=== PATIENT | male | born 1945 | race Caucasian/White ===

== ENCOUNTER 2016-08-23 20:28 | Inpatient (IN) | payer OTHER ==
[~2016-08-23] VITALS: Ht 190.5 cm; Wt 77.0 kg
[~2016-08-23 20:28] MED LIST: ACET-2047 GTB; ALBU2.5V3 NEB; AMIO200T2 GTB; ASCO500S2 GTB; BISA10SU58 PR; CHLO118L3 TOP; FERR220S2 G-TUBE; INSU100V23 SC; LACTINEX GTB; METO5TAB58 GTB; MULT-876 GTB; OMEP40CA6 GTB; POLY15DR42 BOTH EYES; RTATR NEB; SIME80TA6 GTB; TRAM-40 GTB
[2016-08-23] MEDS ORDERED: CEFEPIME 2GM/50 ML (PMX) 50 ML IVPB STA (20:34)
[2016-08-23] MEDS ORDERED: SOD CHLORIDE 0.9% 1,000 ML IV STA ×3 (20:44→21:49)
[2016-08-23] MEDS ORDERED: VANCOMYCIN 1 GM (PMX) 250 ML IVPB ONE (21:00)
[2016-08-23] MEDS ORDERED: ACID1CAP GTB (21:18)
[2016-08-23] MEDS ORDERED: ALBU2.5V3 NEB ×2 (21:19→21:22)
--- NOTE | 2016-08-23 21:21 | RADRPT ---
PROCEDURE: XR Chest. CLINICAL INDICATION: Patient experiencing possible Sepsis TECHNIQUE: Single AP portable chest COMPARISON: 07/27/2016 FINDINGS: The cardiomediastinal silhouette is within normal limits. Patchy right upper lobe airspace opacity invade left infrahilar air space opacity. Blunting left costophrenic angle suggesting pleural effus ion. Tracheostomy in place. Right PICC line catheter tip overlying the proximal superior vena cava. No pneumothorax. The osseous structures and soft tissues are unremarkable. IMPRESSION: Patchy bilateral air space disease and small left pleural effusion. Support devices in place as yo cribed above. RPTAT:AAJJ Physician Damaris Date Time Electronically viewed and signed by Physician Damaris on 08/23/2016 21:20 JAMAR/
[2016-08-23] MEDS ORDERED: AMIO200T2 GTB (21:23)
[2016-08-23] MEDS ORDERED: MINE3.5O31 BOTH EYES (21:24)
[2016-08-23] MEDS ORDERED: DEXT15DR2 BOTH EYES (21:27)
[2016-08-23] MEDS ORDERED: CHLO473M7 MM (21:32)
[2016-08-23] MEDS ORDERED: DOCU-159 GTB (21:32)
[2016-08-23] MEDS ORDERED: CHLO118L3 TOP (21:32)
[2016-08-23] MEDS ORDERED: DULR PR (21:33)
[2016-08-23 21:40] LABS: HEMATOCRIT 21.4 % (42.0-52.0); MEAN CORPUSCULAR HEMOGLOBIN 27.7 pg (29.0-33.0); MEAN CORPUSCULAR HGB CONC 32.1 g/dl (32.0-37.0); MEAN CORPUSCULAR VOLUME 86.3 fl (82.0-101.0); MEAN PLATELET VOLUME 12.9 fl (7.4-10.4); RED BLOOD COUNT 2.48 10^6/ul (4.70-6.10); RED CELL DISTRIBUTION WIDTH 19.4 % (11.5-14.5)
[2016-08-23] MEDS ORDERED: LANT3I SC (21:40)
[2016-08-23] MEDS ORDERED: MULT-105 GTB (21:41)
[2016-08-23] MEDS ORDERED: OMEP40CA6 GTB (21:41)
[2016-08-23] MEDS ORDERED: SIME80TA GTB (21:42)
[2016-08-23] MEDS ORDERED: TRAM-40 GTB (21:44)
[2016-08-23 21:47] LABS: ADD UMIC YES; URINE BILIRUBIN (Dip) NEGATIVE (NEGATIVE); URINE BLOOD (Dip) 2+ (NEGATIVE); URINE GLUCOSE (Dip) NEGATIVE (NEGATIVE); URINE KETONES (Dip) TRACE (NEGATIVE); URINE LEUKOCYTE ESTERASE (Dip) 3+ (NEGATIVE); URINE NITRITE (Dip) NEGATIVE (NEGATIVE); URINE TOTAL PROTEIN (Dip) 2+ (NEGATIVE); URINE UROBILINOGEN (Dip) 0.2 E.U./dL (0.1-1.0)
[2016-08-23] MEDS ORDERED: ACET325T33 GTB (21:47)
[2016-08-23] MEDS ORDERED: TYL500 GTB (21:47)
[2016-08-23] MEDS ORDERED: ASCO500S2 GTB (21:48)
[2016-08-23] MEDS ORDERED: CHOL100062 GTB (21:49)
[2016-08-23] MEDS ORDERED: NORepinephrine 8MG/250 ML (PMX 250 ML IV STA (21:49)
[2016-08-23 21:50] LABS: INR 1.41; PROTIME 17.3 Sec (12.2-14.2); PT RATIO 1.4
[2016-08-23] MEDS ORDERED: ZINC220T GTB (21:50)
[2016-08-23 21:51] LABS: PARTIAL THROMBOPLASTIN TIME 34.7 Sec (25.0-35.0)
[2016-08-23 21:52] LABS: ALBUMIN 2.7 g/dl (3.3-4.9); UNCORRECTED WBC 10.3 10^3/ul (4.8-10.8)
[2016-08-23] MEDS ORDERED: FERROUS SULFATE GTB (21:52)
[2016-08-23 21:54] LABS: CONDITION 1; HEMOGLOBIN 6.9 g/dl (14.0-18.0); LH ANALYZER COMMENTS 1; PLATELET COUNT 168 10^3/UL (140-440); SUSPECT 1
[2016-08-23 21:55] LABS: AADO2 Arterial 387.7 mmHg (7.0-24.0); Arterial Base Excess -4.5 mmol/L (-3.0-3); Arterial COHb 0.3 % (0.0-3.0); Arterial MetHb 0.5 % (0.0-1.5); Arterial Total Hemglobin 7.4 g/dl (12.0-18.0); Blood Gas Mean Airway Pressure 11; MODE VENT - AC
[2016-08-23 21:55] LABS: BILIRUBIN,INDIRECT 0.1 mg/dl (0-1.1); BILIRUBIN,TOTAL 0.1 mg/dl (0.2-1.3); CREATININE 3.23 mg/dl (0.61-1.24)
[2016-08-23 21:56] LABS: ALBUMIN/GLOBULIN RATIO 0.71; CALCIUM 8.5 mg/dl (8.4-10.2); TOTAL PROTEIN 6.5 g/dl (6.1-8.1)
[2016-08-23] MEDS ORDERED: ACETAMINOPHEN 650 MG SUPP PR ONE (22:00)
[2016-08-23] MEDS ORDERED: ALTEPLASE (CATHFLO) 2 MG INJ CATHETER ONE (22:00)
[2016-08-23] MEDS ORDERED: ALTEPLASE (CATHFLO) 2 MG INJ CATHETER PRN (22:00)
[2016-08-23 22:04] LABS: URINE COLOR YELLOW (YELLOW)
[2016-08-23 22:05] LABS: BACTERIA,URINE MANY; TRANSITIONAL EPI CELLS,URINE FEW
[2016-08-23] MEDS ORDERED: SOD CHLORIDE 0.9% 250 ML IV ONE (22:08)
[2016-08-23 22:28] LABS: TROPONIN-I 0.843 ng/ml (0.00-0.12)
[2016-08-23 22:29] LABS: EOSINOPHILS # 0.1 10^3/ul (0.0-0.5); LYMPHOCYTES # 1.7 10^3/ul (0.8-2.9); MONOCYTE # 0.9 10^3/ul (0.3-0.9); NEUTROPHIL # 6.2 10^3/ul (1.6-7.5)
[2016-08-23 22:30] LABS: MICROCYTOSIS 1+
--- NOTE | 2016-08-23 22:35 | ERA ---
ER Documentation Chief Complaint Date/Time DATE: 08/23/16 TIME: 22:26 Chief Complaint fever, dehydration, from [facility] HPI Patient is a 70-year-old male with chronic encephalopathy who presents with fever. Please note the history and physical exam is limited secondary to the patient's encephalopathy at baseline. The patient was transferred from [facility] for fever. I cannot obtain a history otherwise. The patient was brought in by ambulance. ROS All systems reviewed and are negative except as per history of present illness. Medications Home Meds Reported Medications [Ferrous Sulfate] No Conflict Check, 7.5 ML GTB BID 08/23/16 Zinc Sulfate* (Zinc Sulfate*) 220 Mg Tablet, 220 MG GTB DAILY, TAB 08/23/16 Cholecalciferol* (Vitamin D3*) 1,000 Unit Tablet, 1000 UNIT GTB DAILY, TAB 08/23/16 Ascorbic Acid* (Vitamin C* Liq) 500 Mg/5 Ml Syrup, 500 MG GTB DAILY, ML 08/23/16 Acetaminophen* (Tylenol*) 500 Mg Tab, 1000 MG GTB Q4H Y for PAIN 4-01/25, TAB 08/23/16 Acetaminophen* (Tylenol*) 325 Mg Tablet, 650 MG GTB Q4H Y for MILD PAIN LEVEL 1- 3, TAB FOR FEVER AND TRACH TUBE CHANGE 08/23/16 Tramadol Hcl* (Ultram*) 50 Mg Tablet, 50 MG GTB BID, TAB 08/23/16 Simethicone* (Anti-Gas/80*) 80 Mg Tab.chew, 80 MG GTB Q12 Y for DISTENSION/GAS/ BLOATING, TAB.CHEW 08/23/16 Omeprazole* (Omeprazole*) 40 Mg Capsule.dr, 40 MG GTB BID, #30 CAP 08/23/16 Multivitamin with Minerals (Multivitamins with Minerals) 1 Each Tablet, 1 EACH GTB DAILY, TAB 08/23/16 Insulin Glargine* (Lantus*) 100 Unit/Ml Soln, 15 UNIT SC DAILY, #1 VIAL 08/23/16 Bisacodyl* (Bisacodyl*) 10 Mg Supp, 10 MG IA Q24H Y for PRN, SUPP 08/23/16 Docusate Sodium* (Docusate Sodium*) 100 Mg Capsule, 100 MG GTB BID, #60 CAP 08/23/16 Chlorhexidine Gluconate (Paroex) 473 Ml Mouthwash, 473 ML MM Q12, BOTTLE 08/23/16 Dextran/Hypromellose/Glycerin (Artificial Tears Drops) 15 Ml Drops, 2 DROP BOTH EYES BID, EA 08/23/16 Amiodarone Hcl* (Amiodarone Hcl*) 200 Mg Tablet, 200 MG GTB DAILY, #30 TAB HOLD IF AP BELOW 60 08/23/16 Albuterol Sulfate* (Albuterol Sulfate* Neb) 0.083%-3 Ml Neb, 2.5 MG NEB Q6 Y for WHEEZING AND SOB, #30 VIAL TAKE WITH ATROVENT 0.5MG 08/23/16 Albuterol Sulfate* (Albuterol Sulfate* Neb) 0.083%-3 Ml Neb, 2.5 MG NEB Q3H Y for WHEEZING AND SOB, #30 VIAL 08/23/16 Acidophilus/Pectin, [place] (ACIDOPHILUS PROBIOTIC CAPSULE) 1 Each Capsule, 1 EACH GTB DAILY, CAP 08/23/16 Discontinued Reported Medications Chlorhexidine Gluconate* (Chlorhexidine Gluconate*) 118 Ml Liquid, 118 ML TOP, ML 08/23/16 Artificial Tears* (Akwa Oint*) 3.5 Gm Oint, 2 APPLIC BOTH EYES BID, #1 TUB 08/23/16 Multivit-Min/Iron Fum/Folic AC (Apmat-Kxkhvme-Rxypiigm Tablet) 1 Each Tablet, 1 EACH GTB DAILY, TAB 01/30/16 Ferrous Sulfate (Ferrous Sulfate) 220 Mg Solution, 330 MG G-TUBE BID 01/30/16 Omeprazole* (Omeprazole*) 40 Mg Capsule.dr, 40 MG GTB DAILY, #30 CAP 01/30/16 Bisacodyl* (Dulcolax*) 10 Mg/Supp.rect Supp.rect, 10 MG IA Q24H Y for CONSTIPATION, SUPP.RECT 01/30/16 Chlorhexidine Gluconate* (Chlorhexidine Gluconate*) 118 Ml Liquid, 15 ML TOP Q12 Y for oral care, ML 01/30/16 Artificial Tears* (Artificial Tears* Ophth) 15 ml Opht, 2 DROP BOTH EYES, EA 01/30/16 Albuterol Sulfate* (Albuterol Sulfate* Neb) 0.083%-3 Ml Neb, 2.5 MG NEB Q2H Y for WHEEZING AND SOB, #30 VIAL 11/23/15 Albuterol Sulfate* (Albuterol Sulfate* Neb) 0.083%-3 Ml Neb, 2.5 MG NEB Q6 Y for WHEEZING AND SOB, #30 VIAL 11/23/15 Amiodarone Hcl* (Amiodarone Hcl*) 200 Mg Tablet, 200 MG GTB DAILY, #30 TAB 11/23/15 Ascorbic Acid* (Ascorbic Acid*) 500 Mg/5 Ml Syrup, 500 MG GTB DAILY, #150 ML 11/23/15 Ipratropium [place]* (Atrovent*) 0.5 Mg/2.5 Ml Neb, 0.5 MG NEB Q2H Y for WHEEZING AND SOB, #1 BOX 11/23/15 Ipratropium [place]* (Atrovent*) 0.5 Mg/2.5 Ml Neb, 0.5 MG NEB for WHEEZING AND SOB, #1 BOX 11/23/15 Insulin Regular, Human* (Novolin R*) 100 U/Ml Vial, 0 SC SLIDING SCALE AC, VIAL 11/23/15 Lactobacillus Acidophilus* (Lactinex*) 1 Tab Chew, 1 TAB GTB DAILY, TAB 11/23/15 Metoclopramide* (Reglan*) 5 Mg Tablet, 5 MG GTB Q4 Y for NAUSEA AND OR VOMITING , TAB 11/23/15 Simethicone* (Gas-X*) 80 Mg Tab.chew, 80 MG GTB Q12 Y for DISTENSION/GAS/ BLOATING, TAB.CHEW 11/23/15 Tramadol Hcl* (Ultram*) 50 Mg Tablet, 50 MG GTB Q6H Y for PAIN, TAB 11/23/15 Acetaminophen* (Acetaminophen*) 650 Mg Tablet, 650 MG GTB Q6H Y for PAIN AND OR ELEVATED TEMP, #30 TAB 11/23/15 Allergies Allergies: Coded Allergies: No Known Allergy (Unverified , 08/23/16) PMhx/Soc History of Surgery: Yes (trach/peg) Anesthesia Reaction: No Hx Neurological Disorder: Yes (previous subdural hematoma & seizure disorder) Hx Respiratory Disorders: Yes (chronic trach) Hx Cardiac Disorders: Yes (paroxysmal afib) Hx Psychiatric Problems: No Hx Miscellaneous Medical Probl: Yes (ALOC 07/24/16) Hx Alcohol Use: No Hx Substance Use: No Hx Tobacco Use: No Smoking Status: Never smoker FmHx Unable to obtain Physical Exam Vitals Vital Signs Date Time Temp Pulse Resp B/P Pulse Ox O2 Delivery O2 Flow Rate FiO2 08/23/16 22:05 137 19 100 60 08/23/16 21:32 138 16 71/56 100 Mechanical Ventilator 08/23/16 21:09 135 16 68/49 100 Mechanical Ventilator 08/23/16 20:45 102.5 112 22 70/47 96 08/23/16 20:45 159 22 100 100 Physical Exam Const: Chronically ill Head: Atraumatic Eyes: Normal Conjunctiva ENT: Normal External Ears, Nose and Mouth. Neck: Trach in place Resp: Tachypnea with decreased breath sounds bilaterally Cardio: Tachycardic rate Abd: Soft, non tender, non distended. Normal bowel sounds Skin: Pale Back: No midline or flank tenderness Ext: No cyanosis, or edema Neur: Encephalopathic at baseline Result Diagram: 08/23/16210908/23/162109 Results 24 hrs Laboratory Tests Test 08/23/16 21:10 08/23/16 21:15 08/23/16 21:31 Activated Partial Thromboplast Time 34.7Sec Alanine Aminotransferase (ALT/SGPT) 169IU/L Albumin 2.7g/dl Albumin/Globulin Ratio 0.71 Alkaline Phosphatase 47IU/L Anion Gap 24 Aspartate Amino Transf (AST/SGOT) 175IU/L Blood Morphology Comment Blood Urea Nitrogen 186mg/dl Calcium Level 8.5mg/dl Carbon Dioxide Level 25mmol/L Chloride Level 130mmol/L Creatinine 3.23mg/dl Direct Bilirubin 0.00mg/dl Globulin 3.80g/dl Glucose Level 127mg/dl Hematocrit 21.4% Hemoglobin 6.9g/dl INR International Normalized Ratio 1.41 Indirect Bilirubin 0.1mg/dl Lactic Acid Level 2.0mmol/L Mean Corpuscular Hemoglobin 27.7pg Mean Corpuscular Hemoglobin Concent 32.1g/dl Mean Corpuscular Volume 86.3fl Mean Platelet Volume 12.9fl Platelet Count 18617^3/UL Potassium Level 6.0mmol/L Prothrombin Time 17.3Sec Prothrombin Time Ratio 1.4 Red Blood Count 2.4810^6/ul Red Cell Distribution Width 19.4% Sodium Level 173mmol/L Total Bilirubin 0.1mg/dl Total Protein 6.5g/dl Troponin I Pending White Blood Count 9.710^3/ul Urine Bacteria MANY Urine Bilirubin NEGATIVE Urine Calcium Oxalate Crystals FEW Urine Clarity CLOUDY Urine Color YELLOW Urine Glucose NEGATIVE% Urine Granular Casts OCCASIONAL Urine Hemoglobin 2+ Urine Ketones TRACE Urine Leukocyte Esterase 3+ Urine Microscopic RBC 5-10/HPF Urine Microscopic WBC >200/HPF Urine Nitrite NEGATIVE Urine Specific [place] 1.020 Urine Total Protein 2+ Urine Transitional Epithelial Cells FEW Urine Urobilinogen 0.2 E.U./dL Urine pH 5.0 Arterial Blood HCO3 20.0mmol/L Arterial Blood Base Excess -4.5mmol/L Arterial Blood Oxygen Saturation 98.8mmHG Pedro Test N/A Arterial Blood Gas Puncture Site Femoral Arterial Blood Carboxyhemoglobin 0.3% Arterial Blood Date Drawn 08/23/2016 9:40:24 PM Arterial Blood Methemoglobin 0.5% Arterial Blood pCO2 (Temp correct) 34.3mmhg Arterial Blood pH (Temp corrected) 7.384 Arterial Blood pO2 (Temp corrected) 291.0mmHG Blood Gas A-a O2 Differential 387.7mmHg Blood Gas Actual Respiration Rate 19 Blood Gas Critical Value Read Back Trudy MENDES. Blood Gas Inspiratory Pressure 21.0 Blood Gas Low PEEP Setting 5.0cmH2O Blood Gas Mean Airway Pressure 11 Blood Gas Modality VENT - AC Blood Gas Notified Time 08/23/2016 9:55:01 PM Blood Gas Notified Whom BL Blood Gas Respiration Rate 16.0 Blood Gas Specimen Source Blood arterial Blood Gas Temperature 37.0C Blood Gas Tidal Volume 550.0mL FiO2 100.0% Oxyhemoglobin Percent 98.0% Total Hemoglobin 7.4g/dl Current Medications Medications (Trade) Dose Ordered Sig/Cici Route PRN Reason Start Time Stop Time Status Last Admin Dose Admin Cefepime HCl 50 ml @ 100 mls/hr ONCE STAT IVPB 08/23/16 20:34 08/23/16 21:03 DC 08/23/16 21:27 Vancomycin HCl 250 ml @ 125 mls/hr ONCE ONCE IVPB 08/23/16 21:00 08/23/16 22:59 Sodium Chloride 1,000 ml @ 1,000 mls/hr Q1H STAT IV 08/23/16 20:44 08/23/16 21:43 DC 08/23/16 20:56 Sodium Chloride (NS) 1,000 ml @ 1,000 mls/hr Q1H STAT IV 08/23/16 20:44 08/23/16 21:43 DC 08/23/16 20:57 Acetaminophen (Tylenol Supp) 650 mg ONCE ONCE IA 08/23/16 22:00 08/23/16 22:01 DC Alteplase, Recombinant (Cathflo (Activase)) 2 mg ONCE ONCE CATHETER 08/23/16 22:00 08/23/16 22:01 DC Alteplase, Recombinant 2 mg 2 mg MAY REPEAT X1 PRN CATHETER IF CATHETER REMAINS OCCULUDED 08/23/16 22:00 Sodium Chloride 1,000 ml @ 1,000 mls/hr Q1H STAT IV 08/23/16 21:49 08/23/16 22:48 Norepinephrine 250 ml @ 7.5 mls/hr ONCE STAT IV 08/23/16 21:49 08/25/16 07:08 08/23/16 22:05 Sodium Chloride (NS) 250 ml @ 0 mls/hr Q0M ONCE IV 08/23/16 22:08 08/23/16 22:16 DC Procedures/MDM Chest x-ray shows patchy infiltrates per radiology. EKG read by me: Rate/Rhythm: Tachycardic rate Intervals: Normal Impression: Sinus tachycardia without evidence of ischemia, poor R-wave progression Admit MDM: Patient's infectious symptoms have not stabilized and the patient is at risk of rapid decompensation. The patient will be admitted for careful hydration, antibiotic therapy, and infectious source control. Severe Sepsis criteria: Infectious source: Cystitis End organ damage indicated by: Hypertension Sepsis Management: Time of recognition of sepsis: 21:10 Within 3 hours of recognition: Blood cultures x 2 before broad-spectrum antibiotics: Yes 30 ml/kg NS bolus Completed Initial lactate 2.0 Repeat lactate pending Time of recognition of septic shock: 21:32 Septic Shock Assessment: Any lactic acid > 4.0 No Persistent hypotension (SBP < 90 or 40 mmHg drop, MAP < 65) despite 30 mL/kg IV fluid bolus yes Volume Re-assessment for Septic Shock (post 30 ml/kg bolus): Temp 102.5, BP 71/56, HR 137, RR 19, Pox 100% Heart Tachycardic Lungs No crackles Skin Pale Cap Refill Less than 2 seconds Peripheral pulses Radially present Persistent Hypotension Treatment: Comfort care No Central line PICC line already in place Vasopressor started levophed I considered further perfusion assessment with CVP measurement, SCVO2, bedside ultrasound volume assessment, passive leg raise, trial of further fluid bolus. And proceeded with 30 ml/kg fluid bolus of NSS, broad spectrum antibiotics, and admission. The patient has dehydration with a BUN creatinine ratio greater than 20 along with acute renal failure. The patient has hypernatremia which is likely hypovolemic in nature and the patient will be fluid resuscitated. The patient also has anemia with a hemoglobin of less than 8 and will be transfused 2 units of packed red blood cells. The prognosis is poor given his age and comorbidities. I believe a discussion regarding goals of care would be appropriate. Accepting Care Team Current data and ongoing care discussed. Admitting Physician: Dr. Donald as the patient has healthcare partners Crew Foreman(s): None Outstanding Data: Culture results and repeat lactic acid Critical Care: Critical care time 40 minutes excluding all billable procedures Emergent fluid management while maintaining close respiratory support. Provision of immediate and broad-spectrum antibiotic therapy. Simultaneous assessment for possible sources in order to direct targeted therapy. Consideration for invasive and chemical support to prevent cardiopulmonary collapse. Departure Diagnosis: Primary Impression: Septic shock Additional Impressions: Fever Qualified Code: R50.9 - Fever, unspecified fever cause Anemia Qualified Code: D64.9 - Anemia, unspecified type Hypernatremia Respiratory failure Qualified Code: J96.00 - Acute respiratory failure, unspecified whether with hypoxia or hypercapnia Sepsis Qualified Code: A41.9 - Sepsis, due to unspecified organism Dehydration Condition: Critical CAROL LONG MD Aug 23, 2016 22:34
[2016-08-23] MEDS ORDERED: morphine 2 MG INJ IV PRN (23:00)
[2016-08-23] MEDS ORDERED: ACETAMINOPHEN 325 MG TAB GTB PRN (23:00)
[2016-08-23] MEDS ORDERED: BISACODYL 10 MG SUPP PR PRN (23:00)
[2016-08-23] MEDS ORDERED: NACL 0.9% 3 ML SYG IV SCH (23:00)
[2016-08-23] MEDS ORDERED: ONDANSETRON 4 MG INJ IV PRN (23:00)
[2016-08-24] VITALS (89 sets, daily range): BP systolic 53–124; BP diastolic 39–84; PULSE 77–151; RESP 16–38; Ht 190.5 cm; Wt 77.0 kg
[2016-08-24] MEDS: DEXTROSE 5% 1,000 ML IV SCH ×3 (00:20→18:47)
[2016-08-24] MEDS: COLLAGENASE 30 GM TUBE TOP SCH ×2 (04:00→09:21)
[2016-08-24] MEDS: LANSOPRAZOLE 30 MG CAP GTB SCH ×2 (06:02→18:47)
[2016-08-24 06:27] LABS: HEMOGLOBIN 7.4 g/dl (14.0-18.0); MEAN CORPUSCULAR HEMOGLOBIN 27.6 pg (29.0-33.0); MEAN CORPUSCULAR VOLUME 86.1 fl (82.0-101.0); MEAN PLATELET VOLUME 12.7 fl (7.4-10.4); PLATELET COUNT 207 10^3/UL (140-440); RED BLOOD COUNT 2.67 10^6/ul (4.70-6.10); RED CELL DISTRIBUTION WIDTH 19.4 % (11.5-14.5)
[2016-08-24 06:41] LABS: CONDITION 1; LH ANALYZER COMMENTS 1; SUSPECT 1
[2016-08-24 06:53] LABS: ALBUMIN 2.7 g/dl (3.3-4.9)
[2016-08-24 06:54] LABS: POTASSIUM 5.2 mmol/L (3.5-5.1)
[2016-08-24 06:55] LABS: CREATININE 3.07 mg/dl (0.61-1.24)
[2016-08-24 06:56] LABS: ALBUMIN/GLOBULIN RATIO 0.72; BILIRUBIN,INDIRECT 0.1 mg/dl (0-1.1); BILIRUBIN,TOTAL 0.1 mg/dl (0.2-1.3); PHOSPHORUS 5.1 mg/dl (2.5-4.9); TOTAL PROTEIN 6.4 g/dl (6.1-8.1)
[2016-08-24 06:57] LABS: MAGNESIUM 3.4 mg/dl (1.7-2.5)
[2016-08-24] MEDS: DOCUSATE SODIUM 10 MG/ML (10ML CUP) GTB SCH ×2 (09:16→21:01)
[2016-08-24] MEDS: ARTIFICIAL TEARS 15 ML OPH BOTH EYES SCH ×2 (09:16→21:00)
[2016-08-24] MEDS: AMIODARONE 200 MG TAB GTB SCH (09:17)
[2016-08-24] MEDS: FERROUS SULFATE 60 MG/ML 5ML CUP GTB SCH ×2 (09:17→21:01)
[2016-08-24] MEDS: MULTIVITAMINS 5 ML CUP GTB SCH (09:18)
[2016-08-24] MEDS: traMADol 50 MG TAB GTB SCH ×2 (09:18→21:01)
[2016-08-24] MEDS: ASCORBIC ACID 500 MG TAB GTB SCH (09:19)
[2016-08-24] MEDS: CHOLECALCIFEROL 1,000 UNIT TAB GTB SCH (09:19)
[2016-08-24] MEDS: ZINC SULFATE 220 MG CAP GTB SCH (09:20)
[2016-08-24] MEDS: CEFEPIME 2GM/50 ML (PMX) 50 ML IVPB SCH ×2 (09:21→21:01)
[2016-08-24] MEDS: CHLORHEXIDINE GLUCONATE 15 ML UD CUP MM SCH ×2 (09:21→21:01)
--- NOTE | 2016-08-24 09:32 | PN ---
Date/Time of Note Date/Time of Note DATE: 08/24/16 TIME: 09:21 Assessment/Plan VTE Prophylaxis VTE Prophylaxis Intervention: SCD's Lines/Catheters IV Catheter Type (from Nrs): PICC Line Central line still needed: Yes Urinary Cath still in place: Yes Reason Cath still needed: other (indicate) Assessment/Plan Chief Complaint/Hosp Course Assessment and plan: 1. Sepsis, likely secondary to urinary tract infection and severe dehydration Continue sepsis protocol, aggressive IV fluid, pressors, broad-spectrum IV antibiotics Infectious disease and rotary adjuster been consulted 2. Urinary tract infection, Continue broad-spectrum IV antibiotics, follow urine culture and sensitivity 3. Acute renal failure, likely secondary to severe dehydration Continue IV fluids, nephrology has been consulted follow-up renal panel in a.m. 4. Severe hypernatremia, likely secondary to severe dehydration Continue D5W, free water through PEG tube, follow-up renal panel and electrolytes in a.m. Nephrology has been consulted 5. Hyperkalemia, Continue IV fluid, nephrology has been consulted, will follow his recommendations 6. Transaminitis, Likely secondary to severe dehydration, caution with hepatotoxic medication Follow-up liver function tests in a.m. 7. Diabetic mellitus, uncontrolled Continue insulin sliding scale, when patient is able to tolerate PEG tube feeding will restart diabeticsource 8. Sacral decubitus, with evidence of lower extremity decubitus as well Wound care consulted 9. Anemia, Continue iron supplementations, will transfuse PRBC if hemoglobin is less than 7.5 Follow-up CBC in a.m. Condition: Guarded We will continue monitor patient closely for recommendation management treatment as clinical course Problems: Subjective 24 Hr Interval Summary Free Text/Dictation Patient has been admitted to ICU Patient continues to be on pressors, vent dependent Pressors: Levophed 25mic Exam/Review of Systems Vital Signs Vitals Vital Signs Date Time Temp Pulse Resp B/P Pulse Ox O2 Delivery O2 Flow Rate FiO2 08/24/16 07:00 99 17 118/73 99 Mechanical Ventilator Trach Collar 08/24/16 05:28 50 08/24/16 03:35 99.7 Intake and Output 08/23/16 08/23/16 08/24/16 15:00 23:00 07:00 Intake Total 198.27 ml Output Total 505 ml Balance -306.73 ml Exam General: The patient is cachectic, Not in acute distress. HEENT: Atraumatic, normocephalic. The pupils are equal Neck: Tracheostomy in place Chest: Normal Lungs: Decreased breath sounds bilateral lower lung field Heart: Normal S1-S2, Regular rhythm and rate. Abdomen: Soft , nontender, nondistended , bowel sounds are present. PEG tube in place Extremities: Multiple bruises bilateral lower extremity, trace edema no cyanosis Neurologic: Arousable with pain stimuli Results Result Diagram: 08/24/16 0600 08/24/16 0600 Results 24 hrs Laboratory Tests Test 08/23/16 21:10 08/23/16 21:15 08/23/16 21:31 08/23/16 22:30 Activated Partial Thromboplast Time 34.7 Alanine Aminotransferase (ALT/SGPT) 169 H Albumin 2.7 L Albumin/Globulin Ratio 0.71 Alkaline Phosphatase 47 Anion Gap 24 H Aspartate Amino Transf (AST/SGOT) 175 H Band Neutrophils % 8.0 H Blood Morphology Comment Blood Urea Nitrogen 186 H Calcium Level 8.5 Carbon Dioxide Level 25 Chloride Level 130 H Creatinine 3.23 H Direct Bilirubin 0.00 Eosinophils # 0.1 Eosinophils % 1.0 Globulin 3.80 H Glucose Level 127 Hematocrit 21.4 #L Hemoglobin 6.9 #*L INR International Normalized Ratio 1.41 Indirect Bilirubin 0.1 Lactic Acid Level 2.0 1.5 Large Platelets 1+ Lymphocytes # 1.7 Lymphocytes % 18.0 Mean Corpuscular Hemoglobin 27.7 L Mean Corpuscular Hemoglobin Concent 32.1 Mean Corpuscular Volume 86.3 Mean Platelet Volume 12.9 #H Microcytosis 1+ Monocytes # 0.9 Monocytes % 9.0 Neutrophils # 6.2 Neutrophils % 64.0 Platelet Count 168 Potassium Level 6.0 H Prothrombin Time 17.3 #H Prothrombin Time Ratio 1.4 Red Blood Count 2.48 #L Red Cell Distribution Width 19.4 H Sodium Level 173 *H Total Bilirubin 0.1 L Total Protein 6.5 Troponin I 0.843 *H White Blood Count 9.7 # Urine Bacteria MANY Urine Bilirubin NEGATIVE Urine Calcium Oxalate Crystals FEW Urine Clarity CLOUDY H Urine Color YELLOW Urine Glucose NEGATIVE Urine Granular Casts OCCASIONAL Urine Hemoglobin 2+ H Urine Ketones TRACE Urine Leukocyte Esterase 3+ H Urine Microscopic RBC 5-10 Urine Microscopic WBC >200 Urine Nitrite NEGATIVE Urine Specific [place] 1.020 Urine Total Protein 2+ H Urine Transitional Epithelial Cells FEW Urine Urobilinogen 0.2 E.U./dL Urine pH 5.0 Arterial Blood HCO3 20.0 L Arterial Blood Base Excess -4.5 L Arterial Blood Oxygen Saturation 98.8 H Pedro Test N/A Arterial Blood Gas Puncture Site Femoral Arterial Blood Carboxyhemoglobin 0.3 Arterial Blood Date Drawn 08/23/2016 9:40:24 PM Arterial Blood Methemoglobin 0.5 Arterial Blood pCO2 (Temp correct) 34.3 L Arterial Blood pH (Temp corrected) 7.384 Arterial Blood pO2 (Temp corrected) 291.0 H Blood Gas A-a O2 Differential 387.7 H Blood Gas Actual Respiration Rate 19 Blood Gas Critical Value Read Back Naz MENDES Blood Gas Inspiratory Pressure 21.0 Blood Gas Low PEEP Setting 5.0 Blood Gas Mean Airway Pressure 11 Blood Gas Modality VENT - AC Blood Gas Notified Time 08/23/2016 9:55:01 PM Blood Gas Notified Whom BL Blood Gas Respiration Rate 16.0 Blood Gas Specimen Source Blood arterial Blood Gas Temperature 37.0 Blood Gas Tidal Volume 550.0 FiO2 100.0 Oxyhemoglobin Percent 98.0 Total Hemoglobin 7.4 L Test 08/24/16 01:05 08/24/16 06:00 Lactic Acid Level 2.1 Alanine Aminotransferase (ALT/SGPT) 173 H Albumin 2.7 L Albumin/Globulin Ratio 0.72 Alkaline Phosphatase 62 Anion Gap 23 H Aspartate Amino Transf (AST/SGOT) 154 H Basophils # Pending Basophils % Pending Blood Morphology Comment Blood Urea Nitrogen 178 H Calcium Level 8.0 L Carbon Dioxide Level 21 Chloride Level 131 H Creatinine 3.07 H Direct Bilirubin 0.00 Eosinophils # Pending Eosinophils % Pending Globulin 3.70 H Glucose Level 244 #H Hematocrit 23.0 L Hemoglobin 7.4 L Hemoglobin A1c 6.2 H Indirect Bilirubin 0.1 Lymphocytes # Pending Lymphocytes % Pending Magnesium Level 3.4 H Mean Corpuscular Hemoglobin 27.6 L Mean Corpuscular Hemoglobin Concent 32.0 Mean Corpuscular Volume 86.1 Mean Platelet Volume 12.7 H Monocytes # Pending Monocytes % Pending Neutrophils # Pending Neutrophils % Pending Nucleated Red Blood Cells # Pending Nucleated Red Blood Cells % Pending Phosphorus Level 5.1 H Platelet Count 207 # Potassium Level 5.2 H Red Blood Count 2.67 L Red Cell Distribution Width 19.4 H Sodium Level 170 *H Total Bilirubin 0.1 L Total Protein 6.4 Troponin I 0.600 *H White Blood Count 16.0 #H Medications Medications Current Medications Ondansetron HCl (Zofran Inj) 4 mg Q6H PRN IV NAUSEA AND/OR VOMITING; Start 08/23 at 23:00 Morphine Sulfate (morphine) 2 mg Q4H PRN IV SEVERE PAIN LEVEL 7-10; Start at 23:00 Acetaminophen (Tylenol Tab) 650 mg Q4H PRN GTB MILD PAIN LEVEL 1-3; Start at 23:00 Amiodarone HCl (Cordarone) 200 mg DAILY GTB ; Start 08/24/16 at 09:00 Ascorbic Acid (Vitamin C) 500 mg DAILY GTB ; Start 08/24/16 at 09:00 Bisacodyl (Dulcolax Supp) 10 mg Q24H PRN MN PRN; Start 08/23/16 at 23:00 Chlorhexidine Gluconate (Peridex) 15 ml Q12 MM ; Start 08/24/16 at 09:00 Cholecalciferol (Vitamin D) 1,000 unit DAILY GTB ; Start 08/24/16 at 09:00 Eye Lubricant (Artificial Tears Oph) 2 drop BID BOTH EYES ; Start 08/24/16 at 09: 00 Simethicone (Mylicon) 80 mg Q12 PRN GTB DISTENSION/GAS/BLOATING; Start 08/23/16 at 23:00 Tramadol HCl (Ultram) 50 mg BID GTB ; Start 08/24/16 at 09:00 Zinc Sulfate (Zinc Sulfate) 220 mg DAILY GTB ; Start 08/24/16 at 09:00 Miscellaneous Information 1 each DAILY GTB ; Start 08/24/16 at 09:00; Status UNV Multivitamins (Thera-Plus) 5 ml DAILY GTB ; Start 08/24/16 at 09:00 Lansoprazole (Prevacid) 30 mg BID@18 GTB Last administered on 08/24/16t 06:02 ; Admin Dose 30 MG; Start 08/24/16 at 06:00 Ferrous Sulfate (Feosol Liquid Cup) 330 mg BID GTB ; Start 08/24/16 at 09:00 Docusate Sodium 100 mg 100 mg BID GTB ; Start 08/24/16 at 09:00 Cefepime HCl 50 ml @ 100 mls/hr Q12 IVPB ; Start 08/24/16 at 09:00 Dextrose 1,000 ml @ 100 mls/hr Q10H IV Last administered on 08/24/16 00:20; Admin Dose 100 MLS/HR; Start 08/23/16 at 23:00 Norepinephrine/ Dextrose (Levophed/D5W) 500 ml @ 1.87 mls/hr TITRATE IV Last administered on 08/24/16 06:00; Admin Dose 51.09 MLS/HR; Start 08/24/16 at 03:30 Collagenase (Santyl) 1 applic DAILY TOP Last administered on 08/24/16 04:00; Admin Dose 1 APPLIC; Start 08/24/16 at 03:30 IAM GÓMEZ MD Aug 24, 2016 09:32
[2016-08-24 10:04] LABS: LYMPHOCYTES # 0.8 10^3/ul (0.8-2.9); MONOCYTE # 0.6 10^3/ul (0.3-0.9)
[2016-08-24] MEDS: LACTOBACILLUS CHEW TAB PO SCH (11:02)
--- NOTE | 2016-08-24 11:49 | CONS ---
DATE OF ADMISSION: 08/23/2016 DATE OF CONSULTATION: 08/24/2016 TYPE OF CONSULTATION: Nephrology. REFERRING PHYSICIAN: Coleen Donald. REASON FOR CONSULTATION: Acute hypernatremia with a sodium of 170, is acute kidney injury with a cr eatinine 3.07, BUN 178. HISTORY OF PRESENT ILLNESS: This is a 70-year-old male who has a past medical history of chronic ki dney disease secondary to diabetic nephropathy, history of vent dependent respiratory failure, statu s post tracheostomy, history of chronic anemia, history of recent admissions. He presented back on 08/23/2016 with sepsis secondary to urinary tract infection. Patient was severely dehydrated and carrion d acute kidney injury with a BUN of 178, creatinine 3.07. His sodium was 170, his potassium was 5 t o 5.2. The patient gets admitted to the ICU and a nephrology consultation was consulted for acute h ypernatremia with a sodium of 170. At the time of my evaluation, he is currently on IV antibiotics, cefepime. He is hemodynamically stable, no acute events happened overnight. REVIEW OF SYSTEMS: Unable to obtain from the patient since the patient is currently vent dependent. PAST MEDICAL HISTORY: 1. Notable for chronic kidney disease secondary to diabetic nephropathy, history of atrial fibrilla tion, history of chronic respiratory failure, status post tracheostomy and PEG tube placement. 2. History of atrial fibrillation. 3. History of recent admission from 07/24/2016 to 08/02/2016. 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 PAST SURGICAL HISTORY: History of tracheostomy, history of a PEG tube placement. 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 No smoking, alcohol or recreational dimitrios g use. FAMILY HISTORY: Not available. PHYSICAL EXAMINATION: VITAL SIGNS: Temperature 98.9, heart rate 101, respiration 18, blood pressure 99/63, saturation 96% on FIO2 on ventilator. GENERAL: Patient is awake, alert but not communicative due to the ventilator-dependent respiratory failure. HEENT: ____ Tracheostomy site is clear. No discharge. NECK: Supple. LUNGS: Decreased breath sounds at both lung bases. HEART: S1, S2, with regular rhythm, no murmur. ABDOMEN: Soft. PEG tube site is clear. No discharge. EXTREMITIES: No clubbing, cyanosis, or edema. NEUROLOGICAL: Uncooperative for exam. LABORATORY DATA AND DIAGNOSTIC IMAGIN. WBC 9.7, hemoglobin 6.9, platelet count is 168. Sodium 170, potassium 5.2, chloride 131, bicarb quinn 21, BUN 128, creatinine 3.07, glucose 244, calcium is 8. LFTs are normal. Albumin 2.7. 2. PT 13.7, PTT 34.7, INR 1.41. Urinalysis cloudy, 2+ hemoglobin, 2+ total protein, 3+ leukocyte e sterase. ABG shows a pH of 7.38, pCO2 of 34, pO2 ____, bicarbonate 21. 3. Chest x-ray done in the emergency room yesterday shows patchy bilateral airspace disease and sma ll left pleural effusion. IMPRESSION: This is a 70-year-old male with: 1. Acute hypernatremia with a sodium 170, likely secondary to severe dehydration. 2. Acute kidney injury on chronic kidney disease secondary to previous ischemic acute tubular necro sis from severe prerenal azotemia. 3. Severe prerenal azotemia causing the acute renal failure. 4. Sepsis secondary to urinary tract infection. 5. History of recent admission. 6. 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 7. Chronic respiratory failure, status post tracheostomy and status post PEG tube placement. PLAN: 1. Thank you, Dr. Coleen Donald, for this consultation. 1. I will continue the patient on D5W at this point at the rate of 100 mL hour until I re-evaluate him tomorrow. His total free water deficit is more than 6 liters. I am expecting the patient's kid margot functions and the sodium to improve with the D5W. 2. IV antibiotics for a urinary tract infection and sepsis as per the primary care team and the inf ectious disease service. 3. The patient currently seen in the ICU and he will be followed up with the primary care service. Once again thank you, Dr. Coleen Donald, for this consultation and I will continue to follow this julianne guadalupe. Dictated By: ALF YUN MD, KP/LESLY Conf#: [id number] DID#: [id number]
--- NOTE | 2016-08-24 13:56 | HP ---
DATE OF ADMISSION: 08/23/2016 TIME: 10:30 p.m. CHIEF COMPLAINT: Dehydration from SNF. HISTORY OF PRESENT ILLNESS: The patient is a 70-year-old male with a history of chronic encephalopa thy who was recently hospitalized here in July 2016. The patient was hospitalized for sepsis se condary to urinary tract infection and upper respiratory infection as well as acute kidney injury se condary to sepsis. Patient has history of hypernatremia ____chronic encephalopathy status post PEG and trach in the past, history of stage IV decubitus ulcers, paroxysmal atrial fibrillation, diabete s, anemia and vent dependent respiratory failure. The patient resides in a SNF. The patient presen ts once again with signs of sepsis in the SNF with fever and signs of dehydration. The patient is n onverbal and history is obtained from previous medical documentation. PAST MEDICAL HISTORY: As per HPI. HOME MEDICATIONS: 1. Iron. 2. Zinc.. 3. Vitamin D. 4. Ascorbic acid. 5. Acetaminophen. 6. Tramadol. 7. Simethicone. 8. Omeprazole. 9. Multivitamin. 10. Lantus. 11. Albuterol. ALLERGIES: NO KNOWN DRUG ALLERGIES. FAMILY HISTORY: Unable to obtain. SOCIAL HISTORY: No reports of any alcohol abuse, substance abuse, tobacco abuse. Resides in a SNF. REVIEW OF SYSTEMS: A 12-point review of systems cannot be obtained secondary to patient's poor ment ation. PHYSICAL EXAMINATION: VITAL SIGNS: Temperature is 102.5, pulse 137, respiratory rate is 19, BP is ____, saturation 100% o n mechanical ventilation. GENERAL: Nonverbal. HEENT: Normocephalic, atraumatic. LUNGS: Clear to auscultation. CARDIOVASCULAR: Tachycardic. ABDOMEN: Nondistended, soft. EXTREMITIES: No clubbing, cyanosis, or edema. LABORATORIES: White count is ____, hemoglobin 6.9, platelets are 168. Chemistry: Sodium is 173, p otassium is 6.0, chloride 130, anion gap is 24, BUN 26, creatinine is 0.23. Troponin is 0.843. AST is ____, ALT is 169. INR is 1.41. UA shows greater than 200 WBCs, 3+ leukocyte esterase, 2+ prote in. DIAGNOSTICS: Chest x-ray shows patchy bilateral airspace disease with small left pleural effusion. ASSESSMENT AND PLAN: 1. Severe sepsis secondary to urinary tract infection. The patient was recently hospitalized with a similar presentation. At that time, the patient's urine grew Providencia stuartii resistant to mu ltiple antibiotics, but was sensitive to cefepime. We will treat with cefepime IV at this time. We will obtain a urine culture. We will get an ID consultation. 2. Severe hypernatremia from severe dehydration. We will treat with D5W. 3. Acute kidney injury secondary to sepsis. We will get a nephrology consultation. 4. Hyperkalemia secondary to acute kidney injury. 5. Demand ischemia from underlying sepsis. 6. Severe normocytic anemia. The patient has been ordered several units of packed red blood cells in the ER. 7. History of chronic encephalopathy status post PEG and trach. The patient did have a palliative care consultation during the hospitalization. Primary team to reconsult palliative care in the a.m. 8. History of diabetes. We will resume the patient's home insulin. 9. Prophylaxis. Lovenox. Dictated By: KORTNEY ERWIN MD BS/NTS Conf#: [id number] DID#: [id number]
--- NOTE | 2016-08-24 14:01 | CONS ---
DATE OF ADMISSION: 08/23/2016 DATE OF CONSULTATION: 08/24/2016 PRIMARY PHYSICIAN: Kevin Mao MD REASON FOR CONSULTATION: Pulmonary consultation. HISTORY OF PRESENT ILLNESS: History of present illness has been obtained by review of limited medic al records as patient is on mechanical ventilation and is unresponsive. Briefly, this is a 70-year- old gentleman with a history of chronic respiratory failure on mechanical ventilation, status post t racheostomy and PEG and chronic encephalopathy who was transferred from [facility] for fe vers. On admission, he was noted to be in shock with acute renal failure as well as severe hypernat remia as well as a transaminitis. He required IV fluids for resuscitation of what appears to be hyp ovolemic shock and initiation of antibiotics for suspected urosepsis. PAST MEDICAL HISTORY: As above. PAST SURGICAL HISTORY: Trach and PEG, otherwise unknown. MEDICATIONS: Please see MAR. ALLERGIES: UNKNOWN. SOCIAL HISTORY: Lives in jail facility, otherwise no known tobacco, alcohol or illicit d rug use. FAMILY HISTORY: Unable to obtain. REVIEW OF SYSTEMS: Unable to obtain. PHYSICAL EXAMINATION: VITAL SIGNS: Blood pressure is 99/63 supported on Levophed. Heart rate is 101, oxygen saturation i s 97% on mechanical ventilation on 100% FIO2. HEENT: Very emaciated, cachectic with temporal wasting. Tracheostomy site is clear. No JVD, no th yromegaly. CARDIOVASCULAR: Regular rate and rhythm, S1 and S2. LUNGS: Clear to auscultation. ABDOMEN: Soft, nontender, no hepatosplenomegaly. EXTREMITIES: No cyanosis, clubbing or edema. LABORATORY DATA: ABG: pH 7.86, pCO2 is 34, pO2 is 291. Sodium is 170. BUN is 178, creatinine is 3.07. AST is 154, ALT is 173. UA shows notable for greater than 200 WBCs. Chest x-ray shows patch y perihilar disease, likely mostly subsegmental atelectasis. IMPRESSION 1. Shock, likely mostly hypovolemic, possibly a component of septic. 2. Urosepsis. 3. Acute kidney injury, likely due to hypovolemia and prerenal causes. 4. Transaminitis, likely due to ischemic hepatopathy. 5. Troponin leak, possibly likely due to demand ischemia. 6. Possible ventilator-associated pneumonia versus aspiration. 7. Chronic encephalopathy. RECOMMENDATIONS 1. Broad spectrum antibiotics as initiated. 2. Ventilatory support with plans to lower FIO2 as tolerated. 3. Follow up cultures, including urine culture, blood culture. 4. Wound care. 5. IV fluids with normal saline following urine output and renal function closely. 6. Increase free water via G-tube. 7. Follow troponins. 8. A.m. chest x-ray and ABG. Dictated By: CLEM NELSON/LESLY Conf#: [id number] DID#: [id number]
--- NOTE | 2016-08-24 14:10 | CONS ---
DATE OF ADMISSION: 08/23/2016 DATE OF CONSULTATION: 08/24/2016 TYPE OF CONSULTATION: Infectious Disease. REASON FOR CONSULTATION: Antibiotic management. HISTORY OF PRESENT ILLNESS: Patricio Robles is a 70-year-old white male with chronic encephalopathy who presents with fever. The patient resides in a residential facility. He has been hospitaliz ed here previously, his problems include: 1. Ventilator-dependent respiratory failure, status post tracheostomy. 2. Dysphagia, status post G-tube placement. 3. Previous subdural hematoma. 4. Seizure disorders. 5. Paroxysmal atrial fibrillation. 6. Altered level of consciousness. On admission, his white count 9.7. He was severely anemic at 6.9 and 21.4, platelet 168,000. Sodiu m was 173 indicative of severe dehydration, potassium of 6, chloride 130, CO2 of 25, BUN and creatin ine was 186/3.23, random glucose 127. PAST MEDICAL HISTORY: Operations as outlined. FAMILY HISTORY: Noncontributory. SOCIAL HISTORY: He does not smoke, drink or abuse drugs. ALLERGIES: NONE TO PENICILLIN, SULFA OR FOODS. MEDICATIONS: Per chart. REVIEW OF SYSTEMS: As per HPI. PHYSICAL EXAMINATION: GENERAL: The patient is a chronically ill-appearing male who is obtunded, encephalopathic. He has a trach, PEG, Lopez. SKIN: Without generalized rash. HEENT: Within normal limits. NECK: Supple. LYMPH NODES: None palpable. CHEST: Decreased breath sounds at the bases. HEART: Tachycardic. NECK: trach in place. ABDOMEN: Abdomen is soft, nontender. G-tube in place without organosplenomegaly or masses. EXTREMITIES: Without cyanosis, clubbing, or edema. RECTAL AND GENITAL: Deferred. NEUROLOGIC: The patient is encephalopathic. Influenza A and B are negative. IMAGING STUDIES: Chest x-ray shows patchy bilateral airspace disease, small left pleural effusion. He has a right PICC line in the catheter with the catheter tip overlying the proximal superior vena cava. He has patchy right upper lobe airspace opacity. HOSPITAL COURSE: White count today is 16,000, H and H 7.4 and 23, platelet count 207,000. BUN and creatinine is still elevated at 178/3.07. Sodium 170. Urine 3+ leukocyte esterase, greater than 20 0 white cells per high-power field, 2+ hemoglobin. IMPRESSION AND PLAN: The patient was begun on vancomycin and cefepime and he is on norepinephrine t o maintain his blood pressure. IMPRESSION AND PLAN: The patient is a markedly ill male with numerous problems, sepsis likely secon tiara to his pneumonia and urinary tract infection as well. He has acute renal failure, severe acute hyponatremia, hyperkalemia, transaminitis, diabetes, uncontrolled, he also has a sacral decubitus a nd wound care was consulted. I will dictate my findings to the hospitalist. Dictated By: BETHANY MCKENNA MD, JD/LESLY Conf#: [id number] DID#: [id number]
[2016-08-24] MEDS ORDERED: LEVOFLOXACIN 500MG/D5W (PMX) 100 ML IVPB SCH (17:00)
[2016-08-24] MEDS ORDERED: VANCOMYCIN IV PER PHARMACY XX SCH (17:00)
[2016-08-24] MEDS ORDERED: GLUCAGON 1 MG INJ IM PRN (22:00)
[2016-08-24] MEDS ORDERED: GLUCOSE GEL 15 GRAM TUBE BUCCAL PRN (22:00)
[2016-08-24] MEDS ORDERED: GLUCOSE GEL 15 GRAM TUBE PO PRN ×2 (22:00)
[2016-08-24] MEDS ORDERED: DEXTROSE 50% 50 ML SYRINGE IV PRN ×2 (22:00)
[2016-08-25] VITALS (88 sets, daily range): BP systolic 61–123; BP diastolic 41–85; PULSE 82–125; RESP 10–30
[2016-08-25] MEDS ORDERED: INSULIN ASPART [NOVOLOG] 3 ML PEN SC ONE (00:30)
[2016-08-25] MEDS: INSULIN ASPART [NOVOLOG] 3 ML PEN SC SCH ×6 (00:34→20:54)
[2016-08-25] MEDS: COLLAGENASE 30 GM TUBE TOP SCH ×2 (01:15→09:00)
[2016-08-25 05:14] LABS: AADO2 Arterial 139.2 mmHg (7.0-24.0); Allen Test ACCEPTAB; Arterial Base Excess -7.7 mmol/L (-3.0-3); Arterial COHb 0.4 % (0.0-3.0); Arterial Fraction of Oxyhgb 96.2 % (93.0-99.0); Arterial HCO3 17.7 mmol/L (22.0-26.0); Arterial MetHb 0.2 % (0.0-1.5); Arterial Total Hemglobin 7.8 g/dl (12.0-18.0); MODE VENT - AC
[2016-08-25 05:40] LABS: HEMATOCRIT 22.1 % (42.0-52.0); HEMOGLOBIN 7.1 g/dl (14.0-18.0); MEAN CORPUSCULAR HEMOGLOBIN 27.4 pg (29.0-33.0); MEAN CORPUSCULAR VOLUME 85.7 fl (82.0-101.0); MEAN PLATELET VOLUME 13.6 fl (7.4-10.4); PLATELET COUNT 200 10^3/UL (140-440); RED BLOOD COUNT 2.58 10^6/ul (4.70-6.10); RED CELL DISTRIBUTION WIDTH 19.5 % (11.5-14.5); UNCORRECTED WBC 11.1 10^3/ul (4.8-10.8); WHITE BLOOD COUNT 11.1 10^3/ul (4.8-10.8)
[2016-08-25 05:48] LABS: CONDITION 1; LH ANALYZER COMMENTS 1; SUSPECT 1
[2016-08-25] MEDS: DEXTROSE 5% 1,000 ML IV SCH ×3 (05:54→19:00)
[2016-08-25] MEDS: LANSOPRAZOLE 30 MG CAP GTB SCH ×2 (06:03→17:37)
[2016-08-25 06:07] LABS: ALBUMIN 2.5 g/dl (3.3-4.9); POTASSIUM 4.6 mmol/L (3.5-5.1)
[2016-08-25 06:10] LABS: ALBUMIN/GLOBULIN RATIO 0.69; BILIRUBIN,INDIRECT 0.1 mg/dl (0-1.1); BILIRUBIN,TOTAL 0.1 mg/dl (0.2-1.3); CREATININE 2.96 mg/dl (0.61-1.24); TOTAL PROTEIN 6.1 g/dl (6.1-8.1)
[2016-08-25 06:11] LABS: CALCIUM 7.5 mg/dl (8.4-10.2)
[2016-08-25 08:16] LABS: EOSINOPHILS # 0.2 10^3/ul (0.0-0.5); LYMPHOCYTES # 0.2 10^3/ul (0.8-2.9); MONOCYTE # 0.2 10^3/ul (0.3-0.9); NEUTROPHIL # 7.5 10^3/ul (1.6-7.5)
[2016-08-25] MEDS: CHOLECALCIFEROL 1,000 UNIT TAB GTB SCH (09:00)
[2016-08-25] MEDS: AMIODARONE 200 MG TAB GTB SCH (09:00)
[2016-08-25] MEDS: LACTOBACILLUS CHEW TAB PO SCH (09:00)
[2016-08-25] MEDS: DOCUSATE SODIUM 10 MG/ML (10ML CUP) GTB SCH ×2 (09:00→20:48)
[2016-08-25] MEDS: FERROUS SULFATE 60 MG/ML 5ML CUP GTB SCH ×2 (09:00→20:48)
[2016-08-25] MEDS: ARTIFICIAL TEARS 15 ML OPH BOTH EYES SCH ×2 (09:00→20:48)
[2016-08-25] MEDS: CEFEPIME 2GM/50 ML (PMX) 50 ML IVPB SCH (09:00)
[2016-08-25] MEDS: ZINC SULFATE 220 MG CAP GTB SCH (09:00)
[2016-08-25] MEDS: MULTIVITAMINS 5 ML CUP GTB SCH (09:00)
[2016-08-25] MEDS: traMADol 50 MG TAB GTB SCH ×2 (09:00→20:49)
[2016-08-25] MEDS: CHLORHEXIDINE GLUCONATE 15 ML UD CUP MM SCH ×2 (09:00→20:48)
[2016-08-25] MEDS: ASCORBIC ACID 500 MG TAB GTB SCH (09:00)
[2016-08-25] MEDS ORDERED: VANCOMYCIN 1.25 GM in SOD CHLORIDE 0.9% 250 ML IVPB SCH (10:00)
--- NOTE | 2016-08-25 10:09 | RADRPT ---
PROCEDURE: XR Chest. CLINICAL INDICATION: Patient experiencing possible Sepsis TECHNIQUE: Single AP portable chest COMPARISON: 08/23/2016 FINDINGS: The cardiomediastinal silhouette is within normal limits. Patchy right upper lobe and right perihil ar infiltrate is minimally decreased. Blunting left costophrenic angle suggesting small bilateral pleural effusions, minimally increased. Tracheostomy in place. Right PICC line catheter tip overly ing the proximal superior vena cava. No pneumothorax. The osseous structures and soft tissues are un remarkable. IMPRESSION: 1. Interval decreased bilateral perihilar infiltrate. 2. Small bilateral pleural effusions, minimally increased. 3. Stable support devices in place as described above. RPTAT: QQ .Denis Staples MD, MD Date Time Electronically viewed and signed by .Denis Staples MD, on 08/25/2016 10:09 .A/
--- NOTE | 2016-08-25 10:38 | CONS ---
Date/Time of Note Date/Time of Note DATE: 08/25/16 TIME: 10:35 Assessment/Plan Assessment/Plan Additional Assessment/Plan 1. Acute hypernatremia with a sodium 170, likely secondary to severe dehydration. 2. Acute kidney injury on chronic kidney disease secondary to previous ischemic acute tubular necrosis from severe prerenal azotemia. 3. Severe prerenal azotemia causing the acute renal failure. 4. Sepsis secondary to urinary tract infection. 5. History of recent admission. 6. 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 7. Chronic respiratory failure, status post tracheostomy and status post PEG tube placement. PLAN: BP stable Afebrile, Na improving continue D5W and Free water through G tube will follow up Consultation Date/Type/Reason Admit Date/Time Aug 23, 2016 at 22:10 Initial Consult Date Aug Reason for Consultation acute renal failure, Hypernatremia 24 HR Interval Summary Free Text/Dictation Na improving, Cr slightly improved Exam/Review of Systems Vital Signs Vitals Vital Signs Date Time Temp Pulse Resp B/P Pulse Ox O2 Delivery O2 Flow Rate FiO2 08/25/16 08:00 85 08/25/16 06:15 16 102/66 99 08/25/16 06:00 Mechanical Ventilator 08/25/16 05:40 40 08/25/16 04:00 99.0 Intake and Output 08/24/16 08/24/16 08/25/16 15:00 23:00 07:00 Intake Total 1185 ml 1250 ml 1207.5 ml Output Total 135 ml 725 ml 510 ml Balance 1050 ml 525 ml 697.5 ml Exam GENERAL: connected to vent HEENT: Tracheostomy site is clear. No discharge. NECK: Supple. LUNGS: Decreased breath sounds at both lung bases. HEART: S1, S2, with regular rhythm, no murmur. ABDOMEN: Soft. PEG tube site is clear. No discharge. EXTREMITIES: No clubbing, cyanosis, or edema. NEUROLOGICAL: Uncooperative for exam. Results Result Diagram: 08/25/16 0430 08/25/16 0430 Results 24 hrs Laboratory Tests Test 08/24/16 11:17 08/24/16 23:44 08/25/16 04:00 08/25/16 04:30 Troponin I 0.640 *H Bedside Glucose 461 *H Lactic Acid Level 1.7 Alanine Aminotransferase (ALT/SGPT) 210 H Albumin 2.5 L Albumin/Globulin Ratio 0.69 Alkaline Phosphatase 64 Anion Gap 20 H Aspartate Amino Transf (AST/SGOT) 124 H Band Neutrophils % 26.0 H Basophils # Basophils % Blood Morphology Comment Blood Urea Nitrogen 165 H Calcium Level 7.5 L Carbon Dioxide Level 20 L Chloride Level 124 H Creatinine 2.96 H Differential Comment MANUAL DIFF Direct Bilirubin 0.00 Eosinophils # 0.2 Eosinophils % 2.0 Globulin 3.60 H Glucose Level 425 #*H Hematocrit 22.1 L Hemoglobin 7.1 L Indirect Bilirubin 0.1 Lymphocytes # 0.2 L Lymphocytes % 2.0 L Magnesium Level 3.2 H Mean Corpuscular Hemoglobin 27.4 L Mean Corpuscular Hemoglobin Concent 32.0 Mean Corpuscular Volume 85.7 Mean Platelet Volume 13.6 H Monocytes # 0.2 L Monocytes % 2.0 Neutrophils # 7.5 Neutrophils % 68.0 Nucleated Red Blood Cells # Nucleated Red Blood Cells % Platelet Count 200 Potassium Level 4.6 Random Vancomycin Level 8.8 Red Blood Count 2.58 L Red Cell Distribution Width 19.5 H Sodium Level 159 H Total Bilirubin 0.1 L Total Protein 6.1 White Blood Count 11.1 #H Test 08/25/16 05:00 08/25/16 05:51 08/25/16 09:02 Arterial Blood HCO3 17.7 L Arterial Blood Base Excess -7.7 L Arterial Blood Oxygen Saturation 96.8 Pedro Test ACCEPTAB Arterial Blood Gas Puncture Site Left Radial Arterial Blood Carboxyhemoglobin 0.4 Arterial Blood Date Drawn 08/25/2016 5:05:55 AM Arterial Blood Methemoglobin 0.2 Arterial Blood pCO2 (Temp correct) 35.8 Arterial Blood pH (Temp corrected) 7.313 L Arterial Blood pO2 (Temp corrected) 104.8 H Blood Gas A-a O2 Differential 139.2 H Blood Gas Actual Respiration Rate 17 Blood Gas Inspiratory Pressure 23.0 Blood Gas Low PEEP Setting 5.0 Blood Gas Modality VENT - AC Blood Gas Notified Time 08/25/2016 5:14:44 AM Blood Gas Notified Whom LW Blood Gas Respiration Rate 16.0 Blood Gas Specimen Source Blood arterial Blood Gas Temperature 37.0 Blood Gas Tidal Volume 550.0 FiO2 40.0 Oxyhemoglobin Percent 96.2 Total Hemoglobin 7.8 L Bedside Glucose 396 H 332 H Medications Medications Current Medications Ondansetron HCl (Zofran Inj) 4 mg Q6H PRN IV NAUSEA AND/OR VOMITING; Start 08/23 at 23:00 Morphine Sulfate (morphine) 2 mg Q4H PRN IV SEVERE PAIN LEVEL 7-10 Last administered on 08/24/16 23:58; Admin Dose 2 MG; Start 08/23/16 at 23:00 Acetaminophen (Tylenol Tab) 650 mg Q4H PRN GTB MILD PAIN LEVEL 1-3 Last administered on 08/24/16 16:15; Admin Dose 650 MG; Start 08/23/16 at 23:00 Amiodarone HCl (Cordarone) 200 mg DAILY GTB Last administered on 08/25/16 09:00 ; Admin Dose 200 MG; Start 08/24/16 at 09:00 Ascorbic Acid (Vitamin C) 500 mg DAILY GTB Last administered on 08/25/16 09:00 ; Admin Dose 500 MG; Start 08/24/16 at 09:00 Bisacodyl (Dulcolax Supp) 10 mg Q24H PRN NH PRN; Start 08/23/16 at 23:00 Chlorhexidine Gluconate (Peridex) 15 ml Q12 MM Last administered on 08/25/16 09 :00; Admin Dose 15 ML; Start 08/24/16 at 09:00 Cholecalciferol (Vitamin D) 1,000 unit DAILY GTB Last administered on 08/25/16 09:00; Admin Dose 1,000 UNIT; Start 08/24/16 at 09:00 Eye Lubricant (Artificial Tears Oph) 2 drop BID BOTH EYES Last administered on 08/25/16 09:00; Admin Dose 2 DROP; Start 08/24/16 at 09:00 Simethicone (Mylicon) 80 mg Q12 PRN GTB DISTENSION/GAS/BLOATING; Start 08/23/16 at 23:00 Tramadol HCl (Ultram) 50 mg BID GTB Last administered on 08/25/16 09:00; Admin Dose 50 MG; Start 08/24/16 at 09:00 Zinc Sulfate (Zinc Sulfate) 220 mg DAILY GTB Last administered on 08/25/16 09: 00; Admin Dose 220 MG; Start 08/24/16 at 09:00 Lactobacillus Acidoph/Bulgaricus (Floranex) 1 tab DAILY PO Last administered on 08/25/16 09:00; Admin Dose 1 TAB; Start 08/24/16 at 11:00 Multivitamins (Thera-Plus) 5 ml DAILY GTB Last administered on 08/25/16 09:00; Admin Dose 5 ML; Start 08/24/16 at 09:00 Lansoprazole (Prevacid) 30 mg BID@06,18 GTB Last administered on 08/25/16 06:03 ; Admin Dose 30 MG; Start 08/24/16 at 06:00 Ferrous Sulfate (Feosol Liquid Cup) 330 mg BID GTB Last administered on 09:00; Admin Dose 330 MG; Start 08/24/16 at 09:00 Docusate Sodium 100 mg 100 mg BID GTB Last administered on 08/25/16 09:00; Admin Dose 100 MG; Start 08/24/16 at 09:00 Cefepime HCl 50 ml @ 100 mls/hr Q12 IVPB Last administered on 08/25/16 09:00; Admin Dose 100 MLS/HR; Start 08/24/16 at 09:00 Dextrose 1,000 ml @ 100 mls/hr Q10H IV Last administered on 08/25/16 05:54; Admin Dose 100 MLS/HR; Start 08/23/16 at 23:00 Norepinephrine/ Dextrose (Levophed/D5W) 500 ml @ 1.87 mls/hr TITRATE IV Last administered on 08/25/16 03:45; Admin Dose 45 MLS/HR; Start 08/24/16 at 03:30 Collagenase (Santyl) 1 applic DAILY TOP Last administered on 08/25/16 09:00; Admin Dose 1 APPLIC; Start 08/24/16 at 03:30 Miscellaneous Information 1 ea NOTE XX ; Start 08/24/16 at 22:00 Glucose (Glutose) 15 gm Q15M PRN PO DECREASED GLUCOSE; Start 08/24/16 at 22:00 Glucose (Glutose) 22.5 gm Q15M PRN PO DECREASED GLUCOSE; Start 08/24/16 at 22:00 Dextrose (D50w Syringe) 25 ml Q15M PRN IV DECREASED GLUCOSE; Start 08/24/16 at 22:00 Dextrose (D50w Syringe) 50 ml Q15M PRN IV DECREASED GLUCOSE; Start 08/24/16 at 22:00 Glucagon (Glucagen) 1 mg Q15M PRN IM DECREASED GLUCOSE; Start 08/24/16 at 22:00 Glucose (Glutose) 15 gm Q15M PRN BUCCAL DECREASED GLUCOSE; Start 08/24/16 at 22: 00 Insulin Aspart NOVOLOG *MODERATE* ALGORI... Q4 SC Last administered on t 09:00; Admin Dose 10 UNIT; Start 08/25/16 at 09:00 Vancomycin HCl/ Sodium Chloride (Vancocin/NS) 250 ml @ 83.333 mls/ hr Q48H IVPB ; Start 08/25/16 at 10:00 ALF YUN MD Aug 25, 2016 10:38
--- NOTE | 2016-08-25 10:54 | PN ---
Date/Time of Note Date/Time of Note DATE: 08/25/16 TIME: 10:50 Assessment/Plan VTE Prophylaxis VTE Prophylaxis Intervention: SCD's Lines/Catheters IV Catheter Type (from Nrs): PICC Line Central line still needed: Yes Urinary Cath still in place: Yes Reason Cath still needed: other (indicate) Assessment/Plan Chief Complaint/Hosp Course Assessment and plan: 1. Sepsis, likely secondary to urinary tract infection and severe dehydration Continue sepsis protocol, aggressive IV fluid, pressors, broad-spectrum IV antibiotics Infectious disease and appraiser auditor been consulted 2. Urinary tract infection, Continue broad-spectrum IV antibiotics, follow urine culture and sensitivity 3. Acute renal failure, likely secondary to severe dehydration Continue IV fluids, nephrology has been consulted follow-up renal panel in a.m. 4. Severe hypernatremia, likely secondary to severe dehydration, improving Continue D5W, free water through PEG tube, follow-up renal panel and electrolytes in a.m. Nephrology has been consulted 5. Hyperkalemia, Continue IV fluid, nephrology has been consulted, will follow his recommendations 6. Transaminitis, Likely secondary to severe dehydration, caution with hepatotoxic medication Follow-up liver function tests in a.m. 7. Diabetic mellitus, uncontrolled Continue insulin sliding scale, continue Lantus, when patient is able to tolerate PEG tube feeding will restart diabeticsource 8. Sacral decubitus, with evidence of lower extremity decubitus as well Wound care consulted 9. Anemia, Continue iron supplementations, will transfuse PRBC if hemoglobin is less than 7.5 Plan to transfuse 1 unit packed red blood cell Follow-up CBC in a.m. Condition: Guarded We will continue monitor patient closely for recommendation management treatment as clinical course Problems: Subjective 24 Hr Interval Summary Free Text/Dictation No acute changes Patient continues to be vent dependent and on pressors Does not respond to pain or verbal stimuli at this time Exam/Review of Systems Vital Signs Vitals Vital Signs Date Time Temp Pulse Resp B/P Pulse Ox O2 Delivery O2 Flow Rate FiO2 08/25/16 08:00 85 08/25/16 06:15 16 102/66 99 08/25/16 06:00 Mechanical Ventilator 08/25/16 05:40 40 08/25/16 04:00 99.0 Intake and Output 08/24/16 08/24/16 08/25/16 15:00 23:00 07:00 Intake Total 1185 ml 1250 ml 1207.5 ml Output Total 135 ml 725 ml 510 ml Balance 1050 ml 525 ml 697.5 ml Exam General: The patient is cachectic, Not in acute distress. HEENT: Atraumatic, normocephalic. The pupils are equal Neck: Tracheostomy in place Chest: Normal Lungs: Decreased breath sounds bilateral lower lung field Heart: Normal S1-S2, Regular rhythm and rate. Abdomen: Soft , nontender, nondistended , bowel sounds are present. PEG tube in place Extremities: Multiple bruises bilateral lower extremity, trace edema no cyanosis Neurologic: Arousable with pain stimuli Results Result Diagram: 08/25/16 0430 08/25/16 0430 Results 24 hrs Laboratory Tests Test 08/24/16 11:17 08/24/16 23:44 08/25/16 04:00 08/25/16 04:30 Troponin I 0.640 *H Bedside Glucose 461 *H Lactic Acid Level 1.7 Alanine Aminotransferase (ALT/SGPT) 210 H Albumin 2.5 L Albumin/Globulin Ratio 0.69 Alkaline Phosphatase 64 Anion Gap 20 H Aspartate Amino Transf (AST/SGOT) 124 H Band Neutrophils % 26.0 H Basophils # Basophils % Blood Morphology Comment Blood Urea Nitrogen 165 H Calcium Level 7.5 L Carbon Dioxide Level 20 L Chloride Level 124 H Creatinine 2.96 H Differential Comment MANUAL DIFF Direct Bilirubin 0.00 Eosinophils # 0.2 Eosinophils % 2.0 Globulin 3.60 H Glucose Level 425 #*H Hematocrit 22.1 L Hemoglobin 7.1 L Indirect Bilirubin 0.1 Lymphocytes # 0.2 L Lymphocytes % 2.0 L Magnesium Level 3.2 H Mean Corpuscular Hemoglobin 27.4 L Mean Corpuscular Hemoglobin Concent 32.0 Mean Corpuscular Volume 85.7 Mean Platelet Volume 13.6 H Monocytes # 0.2 L Monocytes % 2.0 Neutrophils # 7.5 Neutrophils % 68.0 Nucleated Red Blood Cells # Nucleated Red Blood Cells % Platelet Count 200 Potassium Level 4.6 Random Vancomycin Level 8.8 Red Blood Count 2.58 L Red Cell Distribution Width 19.5 H Sodium Level 159 H Total Bilirubin 0.1 L Total Protein 6.1 White Blood Count 11.1 #H Test 08/25/16 05:00 08/25/16 05:51 08/25/16 09:02 Arterial Blood HCO3 17.7 L Arterial Blood Base Excess -7.7 L Arterial Blood Oxygen Saturation 96.8 Pedro Test ACCEPTAB Arterial Blood Gas Puncture Site Left Radial Arterial Blood Carboxyhemoglobin 0.4 Arterial Blood Date Drawn 08/25/2016 5:05:55 AM Arterial Blood Methemoglobin 0.2 Arterial Blood pCO2 (Temp correct) 35.8 Arterial Blood pH (Temp corrected) 7.313 L Arterial Blood pO2 (Temp corrected) 104.8 H Blood Gas A-a O2 Differential 139.2 H Blood Gas Actual Respiration Rate 17 Blood Gas Inspiratory Pressure 23.0 Blood Gas Low PEEP Setting 5.0 Blood Gas Modality VENT - AC Blood Gas Notified Time 08/25/2016 5:14:44 AM Blood Gas Notified Whom LW Blood Gas Respiration Rate 16.0 Blood Gas Specimen Source Blood arterial Blood Gas Temperature 37.0 Blood Gas Tidal Volume 550.0 FiO2 40.0 Oxyhemoglobin Percent 96.2 Total Hemoglobin 7.8 L Bedside Glucose 396 H 332 H Medications Medications Current Medications Ondansetron HCl (Zofran Inj) 4 mg Q6H PRN IV NAUSEA AND/OR VOMITING; Start 08/23 at 23:00 Morphine Sulfate (morphine) 2 mg Q4H PRN IV SEVERE PAIN LEVEL 7-10 Last administered on 08/24/16 23:58; Admin Dose 2 MG; Start 08/23/16 at 23:00 Acetaminophen (Tylenol Tab) 650 mg Q4H PRN GTB MILD PAIN LEVEL 1-3 Last administered on 08/24/16 16:15; Admin Dose 650 MG; Start 08/23/16 at 23:00 Amiodarone HCl (Cordarone) 200 mg DAILY GTB Last administered on 08/25/16 09:00 ; Admin Dose 200 MG; Start 08/24/16 at 09:00 Ascorbic Acid (Vitamin C) 500 mg DAILY GTB Last administered on 08/25/16 09:00 ; Admin Dose 500 MG; Start 08/24/16 at 09:00 Bisacodyl (Dulcolax Supp) 10 mg Q24H PRN NV PRN; Start 08/23/16 at 23:00 Chlorhexidine Gluconate (Peridex) 15 ml Q12 MM Last administered on 08/25/16 09 :00; Admin Dose 15 ML; Start 08/24/16 at 09:00 Cholecalciferol (Vitamin D) 1,000 unit DAILY GTB Last administered on 08/25/16 09:00; Admin Dose 1,000 UNIT; Start 08/24/16 at 09:00 Eye Lubricant (Artificial Tears Oph) 2 drop BID BOTH EYES Last administered on 08/25/16 09:00; Admin Dose 2 DROP; Start 08/24/16 at 09:00 Simethicone (Mylicon) 80 mg Q12 PRN GTB DISTENSION/GAS/BLOATING; Start 08/23/16 at 23:00 Tramadol HCl (Ultram) 50 mg BID GTB Last administered on 08/25/16 09:00; Admin Dose 50 MG; Start 08/24/16 at 09:00 Zinc Sulfate (Zinc Sulfate) 220 mg DAILY GTB Last administered on 08/25/16 09: 00; Admin Dose 220 MG; Start 08/24/16 at 09:00 Lactobacillus Acidoph/Bulgaricus (Floranex) 1 tab DAILY PO Last administered on 08/25/16 09:00; Admin Dose 1 TAB; Start 08/24/16 at 11:00 Multivitamins (Thera-Plus) 5 ml DAILY GTB Last administered on 08/25/16 09:00; Admin Dose 5 ML; Start 08/24/16 at 09:00 Lansoprazole (Prevacid) 30 mg BID@06,18 GTB Last administered on 08/25/16 06:03 ; Admin Dose 30 MG; Start 08/24/16 at 06:00 Ferrous Sulfate (Feosol Liquid Cup) 330 mg BID GTB Last administered on 09:00; Admin Dose 330 MG; Start 08/24/16 at 09:00 Docusate Sodium 100 mg 100 mg BID GTB Last administered on 08/25/16 09:00; Admin Dose 100 MG; Start 08/24/16 at 09:00 Cefepime HCl 50 ml @ 100 mls/hr Q12 IVPB Last administered on 08/25/16 09:00; Admin Dose 100 MLS/HR; Start 08/24/16 at 09:00 Dextrose 1,000 ml @ 100 mls/hr Q10H IV Last administered on 08/25/16 05:54; Admin Dose 100 MLS/HR; Start 08/23/16 at 23:00 Norepinephrine/ Dextrose (Levophed/D5W) 500 ml @ 1.87 mls/hr TITRATE IV Last administered on 08/25/16 03:45; Admin Dose 45 MLS/HR; Start 08/24/16 at 03:30 Collagenase (Santyl) 1 applic DAILY TOP Last administered on 08/25/16 09:00; Admin Dose 1 APPLIC; Start 08/24/16 at 03:30 Miscellaneous Information 1 ea NOTE XX ; Start 08/24/16 at 22:00 Glucose (Glutose) 15 gm Q15M PRN PO DECREASED GLUCOSE; Start 08/24/16 at 22:00 Glucose (Glutose) 22.5 gm Q15M PRN PO DECREASED GLUCOSE; Start 08/24/16 at 22:00 Dextrose (D50w Syringe) 25 ml Q15M PRN IV DECREASED GLUCOSE; Start 08/24/16 at 22:00 Dextrose (D50w Syringe) 50 ml Q15M PRN IV DECREASED GLUCOSE; Start 08/24/16 at 22:00 Glucagon (Glucagen) 1 mg Q15M PRN IM DECREASED GLUCOSE; Start 08/24/16 at 22:00 Glucose (Glutose) 15 gm Q15M PRN BUCCAL DECREASED GLUCOSE; Start 08/24/16 at 22: 00 Insulin Aspart NOVOLOG *MODERATE* ALGORI... Q4 SC Last administered on 09:00; Admin Dose 10 UNIT; Start 08/25/16 at 09:00 Vancomycin HCl/ Sodium Chloride (Vancocin/NS) 250 ml @ 83.333 mls/ hr Q48H IVPB ; Start 08/25/16 at 10:00 IAM GÓMEZ MD Aug 25, 2016 10:53
[2016-08-25] MEDS ORDERED: INSULIN GLARGINE [LANtus] 3 ML PEN SC ONE (11:00)
--- NOTE | 2016-08-25 13:36 | CONS ---
Date/Time of Note Date/Time of Note DATE: 08/25/16 TIME: 13:33 Consult Date/Type/Reason Admit Date/Time Aug 23, 2016 at 22:10 Initial Consult Date Type of Consultation: pulm Subjective On vent. Remains on levophed gtt. Objective Vital Signs Date Time Temp Pulse Resp B/P Pulse Ox O2 Delivery O2 Flow Rate FiO2 08/25/16 12:00 89 08/25/16 06:15 16 102/66 99 08/25/16 06:00 Mechanical Ventilator 08/25/16 05:40 40 08/25/16 04:00 99.0 Intake and Output 08/24/16 08/24/16 08/25/16 15:00 23:00 07:00 Intake Total 1185 ml 1250 ml 1207.5 ml Output Total 135 ml 725 ml 510 ml Balance 1050 ml 525 ml 697.5 ml HEENT: Very emaciated, cachectic with temporal wasting. Tracheostomy site is clear. No JVD, no thyromegaly. CARDIOVASCULAR: Regular rate and rhythm, S1 and S2. LUNGS: Clear to auscultation. ABDOMEN: Soft, nontender, no hepatosplenomegaly. EXTREMITIES: No cyanosis, clubbing or edema. Results/Medications Result Diagram: 08/25/16 04308/25/16 0430 Results 24 hrs Laboratory Tests Test 08/24/16 23:44 08/25/16 04:00 08/25/16 04:30 08/25/16 05:00 Bedside Glucose 461 *H Lactic Acid Level 1.7 Alanine Aminotransferase (ALT/SGPT) 210 H Albumin 2.5 L Albumin/Globulin Ratio 0.69 Alkaline Phosphatase 64 Anion Gap 20 H Aspartate Amino Transf (AST/SGOT) 124 H Band Neutrophils % 26.0 H Basophils # Basophils % Blood Morphology Comment Blood Urea Nitrogen 165 H Calcium Level 7.5 L Carbon Dioxide Level 20 L Chloride Level 124 H Creatinine 2.96 H Differential Comment MANUAL DIFF Direct Bilirubin 0.00 Eosinophils # 0.2 Eosinophils % 2.0 Globulin 3.60 H Glucose Level 425 #*H Hematocrit 22.1 L Hemoglobin 7.1 L Indirect Bilirubin 0.1 Lymphocytes # 0.2 L Lymphocytes % 2.0 L Magnesium Level 3.2 H Mean Corpuscular Hemoglobin 27.4 L Mean Corpuscular Hemoglobin Concent 32.0 Mean Corpuscular Volume 85.7 Mean Platelet Volume 13.6 H Monocytes # 0.2 L Monocytes % 2.0 Neutrophils # 7.5 Neutrophils % 68.0 Nucleated Red Blood Cells # Nucleated Red Blood Cells % Platelet Count 200 Potassium Level 4.6 Random Vancomycin Level 8.8 Red Blood Count 2.58 L Red Cell Distribution Width 19.5 H Sodium Level 159 H Total Bilirubin 0.1 L Total Protein 6.1 White Blood Count 11.1 #H Arterial Blood HCO3 17.7 L Arterial Blood Base Excess -7.7 L Arterial Blood Oxygen Saturation 96.8 Pedro Test ACCEPTAB Arterial Blood Gas Puncture Site Left Radial Arterial Blood Carboxyhemoglobin 0.4 Arterial Blood Date Drawn 08/25/2016 5:05:55 AM Arterial Blood Methemoglobin 0.2 Arterial Blood pCO2 (Temp correct) 35.8 Arterial Blood pH (Temp corrected) 7.313 L Arterial Blood pO2 (Temp corrected) 104.8 H Blood Gas A-a O2 Differential 139.2 H Blood Gas Actual Respiration Rate 17 Blood Gas Inspiratory Pressure 23.0 Blood Gas Low PEEP Setting 5.0 Blood Gas Modality VENT - AC Blood Gas Notified Time 08/25/2016 5:14:44 AM Blood Gas Notified Whom LW Blood Gas Respiration Rate 16.0 Blood Gas Specimen Source Blood arterial Blood Gas Temperature 37.0 Blood Gas Tidal Volume 550.0 FiO2 40.0 Oxyhemoglobin Percent 96.2 Total Hemoglobin 7.8 L Test 08/25/16 05:51 08/25/16 09:02 Bedside Glucose 396 H 332 H Medications Current Medications Ondansetron HCl (Zofran Inj) 4 mg Q6H PRN IV NAUSEA AND/OR VOMITING; Start 08/23 at 23:00 Morphine Sulfate (morphine) 2 mg Q4H PRN IV SEVERE PAIN LEVEL 7-10 Last administered on 08/24/16 23:58; Admin Dose 2 MG; Start 08/23/16 at 23:00 Acetaminophen (Tylenol Tab) 650 mg Q4H PRN GTB MILD PAIN LEVEL 1-3 Last administered on 08/24/16 16:15; Admin Dose 650 MG; Start 08/23/16 at 23:00 Amiodarone HCl (Cordarone) 200 mg DAILY GTB Last administered on 08/25/16 09:00 ; Admin Dose 200 MG; Start 08/24/16 at 09:00 Ascorbic Acid (Vitamin C) 500 mg DAILY GTB Last administered on 08/25/16 09:00 ; Admin Dose 500 MG; Start 08/24/16 at 09:00 Bisacodyl (Dulcolax Supp) 10 mg Q24H PRN [place] PRN; Start 08/23/16 at 23:00 Chlorhexidine Gluconate (Peridex) 15 ml Q12 MM Last administered on 08/25/16 09 :00; Admin Dose 15 ML; Start 08/24/16 at 09:00 Cholecalciferol (Vitamin D) 1,000 unit DAILY GTB Last administered on 08/25/16 09:00; Admin Dose 1,000 UNIT; Start 08/24/16 at 09:00 Eye Lubricant (Artificial Tears Oph) 2 drop BID BOTH EYES Last administered on 08/25/16 09:00; Admin Dose 2 DROP; Start 08/24/16 at 09:00 Simethicone (Mylicon) 80 mg Q12 PRN GTB DISTENSION/GAS/BLOATING; Start 08/23/16 at 23:00 Tramadol HCl (Ultram) 50 mg BID GTB Last administered on 08/25/16 09:00; Admin Dose 50 MG; Start 08/24/16 at 09:00 Zinc Sulfate (Zinc Sulfate) 220 mg DAILY GTB Last administered on 08/25/16 09: 00; Admin Dose 220 MG; Start 08/24/16 at 09:00 Lactobacillus Acidoph/Bulgaricus (Floranex) 1 tab DAILY PO Last administered on 08/25/16 09:00; Admin Dose 1 TAB; Start 08/24/16 at 11:00 Multivitamins (Thera-Plus) 5 ml DAILY GTB Last administered on 08/25/16 09:00; Admin Dose 5 ML; Start 08/24/16 at 09:00 Lansoprazole (Prevacid) 30 mg BID@18 GTB Last administered on 08/25/16 06:03 ; Admin Dose 30 MG; Start 08/24/16 at 06:00 Ferrous Sulfate (Feosol Liquid Cup) 330 mg BID GTB Last administered on 09:00; Admin Dose 330 MG; Start 08/24/16 at 09:00 Docusate Sodium 100 mg 100 mg BID GTB Last administered on 08/25/16 09:00; Admin Dose 100 MG; Start 08/24/16 at 09:00 Cefepime HCl 50 ml @ 100 mls/hr Q12 IVPB Last administered on 08/25/16 09:00; Admin Dose 100 MLS/HR; Start 08/24/16 at 09:00 Dextrose 1,000 ml @ 100 mls/hr Q10H IV Last administered on 08/25/16 05:54; Admin Dose 100 MLS/HR; Start 08/23/16 at 23:00 Norepinephrine/ Dextrose (Levophed/D5W) 500 ml @ 1.87 mls/hr TITRATE IV Last administered on 08/25/16 03:45; Admin Dose 45 MLS/HR; Start 08/24/16 at 03:30 Collagenase (Santyl) 1 applic DAILY TOP Last administered on 08/25/16 09:00; Admin Dose 1 APPLIC; Start 08/24/16 at 03:30 Miscellaneous Information 1 ea NOTE XX ; Start 08/24/16 at 22:00 Glucose (Glutose) 15 gm Q15M PRN PO DECREASED GLUCOSE; Start 08/24/16 at 22:00 Glucose (Glutose) 22.5 gm Q15M PRN PO DECREASED GLUCOSE; Start 08/24/16 at 22:00 Dextrose (D50w Syringe) 25 ml Q15M PRN IV DECREASED GLUCOSE; Start 08/24/16 at 22:00 Dextrose (D50w Syringe) 50 ml Q15M PRN IV DECREASED GLUCOSE; Start 08/24/16 at 22:00 Glucagon (Glucagen) 1 mg Q15M PRN IM DECREASED GLUCOSE; Start 08/24/16 at 22:00 Glucose (Glutose) 15 gm Q15M PRN BUCCAL DECREASED GLUCOSE; Start 08/24/16 at 22: 00 Insulin Aspart NOVOLOG *MODERATE* ALGORI... Q4 SC Last administered on 09:00; Admin Dose 10 UNIT; Start 08/25/16 at 09:00 Vancomycin HCl/ Sodium Chloride (Vancocin/NS) 250 ml @ 83.333 mls/ hr Q48H IVPB Last administered on 08/25/16 10:56; Admin Dose 83.333 MLS/HR; Start at 10:00 Mupirocin (Bactroban) 1 applic BID TOP ; Start 08/25/16 at 21:00; Stop 08/29/16 at 11:00 Insulin Glargine (Lantus) 10 unit QPM SC ; Start 08/25/16 at 21:00 Assessment/Plan Additional Assessment/Plan IMPRESSION: 1. Shock-hypovolemic/septic--due to likely cath-related BSI 2. Urosepsis 3. Acute kidney injury, likely due to hypovolemia and prerenal causes. 4. Transaminitis, likely due to ischemic hepatopathy. 5. Troponin leak, possibly likely due to demand ischemia. 6. Possible ventilator-associated pneumonia versus aspiration. 7. Chronic encephalopathy. RECOMMENDATIONS: 1. Broad spectrum antibiotics as initiated. 2. Ventilatory support with plans to lower FIO2 as tolerated. 3. Need to remove PICC line 4. Will need temporary CVC as he remain on pressors 5. Titrate levophed gtt 35 min cc time . CLEM AGUILAR MD Aug 25, 2016 13:36
[2016-08-25] MEDS ORDERED: LORAZEPAM 2 MG INJ ONE (15:44)
[2016-08-25] MEDS ORDERED: LORAZEPAM 2 MG INJ IV ONE (16:00)
[2016-08-25] MEDS ORDERED: LACTATED RINGER'S 1,000 ML IV ONE (16:00)
--- NOTE | 2016-08-25 16:55 | RADRPT ---
PROCEDURE: XR Chest. CLINICAL INDICATION: Shortness of breath. TECHNIQUE: Single frontal view. COMPARISON: 08/25/2016. 0620 hours. FINDINGS: The tracheostomy tube and right arm PICC line are in satisfactory position. Bibasilar atelectasis a nd perihilar infiltrates are unchanged. The heart is mildly enlarged. There is calcification in the aorta consistent with atherosclerosis. There may be small bilateral pleural effusions. There is no pneumothorax. IMPRESSION: 1. No change from 08/25/2016 at 0620 hours. RPTAT: QQ .Gautam Myers MD, MD Date Time Electronically viewed and signed by .Gautam Myers MD, MD on 08/25/2016 16:55 .R/
--- NOTE | 2016-08-25 17:39 | PN ---
DATE: 08/25/2016 SUBJECTIVE: The patient remains on pressors, status post fever of 103.4 yesterday, currently afebri le. He is nonverbal, noncommunicative. VITAL SIGNS: Temperature 99, pulse 89, respirations 16, blood pressure 102/66, saturation 99% on ve nt. WBC 11.1, H and H 7.1 and 22.1, platelets 200, neutrophils 68, bands 26, lymphs 2, monos 2. BU N 165, creatinine 2.96, glucose 425 this a.m. AST 124, ALT 210, total bilirubin 0.10. MICROBIOLOGY: Blood culture growing Staphylococcus aureus. Urine culture growing gram-negative colby s. A nares swab came back positive for MRSA. INDWELLINGS: The patient has a PICC line, trach, PEG, Lopez. DIAGNOSTICS: Chest x-ray this morning revealed increased bilateral perihilar infiltrate with small bilateral pleural effusions. ANTIMICROBIALS: 1. Vancomycin. 2. Topical Bactroban to nares. 3. Cefepime. PHYSICAL EXAMINATION: GENERAL: Chronically ill-appearing, elderly man who is noncommunicative and in no distress. HEENT: Head atraumatic, normocephalic. Sclerae anicteric. Buccal mucosa dry. NECK: Supple. Trachea present. CHEST: Rise symmetrical. Breath sounds diminished to bases. HEART: S1, S2. ABDOMEN: Distended, soft. Bowel tones present. G-tube site clear. EXTREMITIES: With trace edema. SKIN: With multiple unstageable decubitus. ASSESSMENT: 1. Sepsis with shock. 2. Oxacillin-sensitive Staphylococcus aureus bacteremia, likely secondary to infected line. 3. Urinary tract infection. 4. Healthcare-associated pneumonia. 5. Methicillin-resistant Staphylococcus aureus nares colonization. 6. Multiple chronic wounds, possibly infected. 7. Acute renal failure. 8. Chronic respiratory failure. 9. Transaminitis, LFTs tracing down. 10. Chronic encephalopathy. PLAN: The patient remains hemodynamically unstable, covered with appropriate antibiotics, pending f inal cultures. We are going to discontinue his PICC line and place peripheral IV, or order a new li ne given the fact that the patient is getting IV. Continue local wound care and also order sputum c ulture if it has not been done yet. Dictated By: CHRISS RIVAS ADMINISTRATIVE ASSISTANT COORDINATOR for BETHANY CASTILLO/LESLY Conf#: [id number] DID#: [id number]
--- NOTE | 2016-08-25 18:07 | OPR ---
DATE OF OPERATION: PROCEDURE: Right triple lumen central venous catheter insertion. DESCRIPTION OF PROCEDURE: After the risks, benefits, alternatives, and indications for the procedur e were discussed with the patient's DPOA, an informed consent was obtained by the RN and placed in t he chart. MEDICATIONS USED: Lidocaine 1%, 5 mL locally. TECHNIQUE: Under strict sterile precautions, 2 attempts were made at placing a right subclavian freddie ous catheter under direct ultrasound visualization. It appeared that there were low with venous pre ssures, as manifested in very small and compressible subclavian vein. Additionally, under sterile p recautions, the right internal jugular and femoral veins were visualized with ultrasound and all aline eared extremely small and compressible. Therefore, the procedure was aborted and plans were made to further resuscitate the patient and reattempt a fresh stick tomorrow once patient has been more veto quately resuscitated. COMPLICATIONS: None. FOLLOWUP STUDIES: Stat chest x-ray has been ordered and is pending. Dictated By: CLEM AGUILAR MD NK/NTS Conf#: [id number] DID#: [id number] CC: NICK BALLARD MD; KORTNEY ERWIN MD;*EndCC*
[2016-08-25] MEDS: MUPIROCIN 2% 22 GM OINT TOP SCH (20:55)
[2016-08-25] MEDS ORDERED: INSULIN GLARGINE [LANtus] 3 ML PEN SC SCH (21:00)
[2016-08-26] VITALS (96 sets, daily range): BP systolic 68–128; BP diastolic 48–86; PULSE 72–86; RESP 6–30
[2016-08-26] MEDS: INSULIN ASPART [NOVOLOG] 3 ML PEN SC SCH ×6 (00:26→21:12)
[2016-08-26 05:17] LABS: EOSINOPHILS # 0.3 10^3/ul (0.0-0.5); EOSINOPHILS % 2.6 % (0.0-7.0); HEMATOCRIT 23.2 % (42.0-52.0); HEMOGLOBIN 7.8 g/dl (14.0-18.0); LYMPHOCYTES # 0.4 10^3/ul (0.8-2.9); LYMPHOCYTES % 3.5 % (15.0-51.0); MEAN CORPUSCULAR HEMOGLOBIN 28.6 pg (29.0-33.0); MEAN CORPUSCULAR HGB CONC 33.6 g/dl (32.0-37.0); MEAN PLATELET VOLUME 13.5 fl (7.4-10.4); MONOCYTE # 0.4 10^3/ul (0.3-0.9); MONOCYTES % 3.5 % (0.0-11.0); NEUTROPHIL # 9.3 10^3/ul (1.6-7.5); NEUTROPHILS % 90.4 % (39.0-77.0); PLATELET COUNT 144 10^3/UL (140-440); RED BLOOD COUNT 2.72 10^6/ul (4.70-6.10); RED CELL DISTRIBUTION WIDTH 17.7 % (11.5-14.5); UNCORRECTED WBC 10.3 10^3/ul (4.8-10.8); WHITE BLOOD COUNT 10.3 10^3/ul (4.8-10.8)
[2016-08-26 05:21] LABS: AADO2 Arterial 89.6 mmHg (7.0-24.0); Allen Test ACCEPTAB; Arterial Base Excess -8.3 mmol/L (-3.0-3); Arterial COHb 0.3 % (0.0-3.0); Arterial Fraction of Oxyhgb 95.2 % (93.0-99.0); Arterial HCO3 16.3 mmol/L (22.0-26.0); Arterial MetHb 0.4 % (0.0-1.5); MODE VENT - AC
[2016-08-26 05:34] LABS: CONDITION 1; LH ANALYZER COMMENTS 1; SUSPECT 1
[2016-08-26] MEDS: LANSOPRAZOLE 30 MG CAP GTB SCH ×2 (05:35→17:23)
[2016-08-26] MEDS: DEXTROSE 5% 1,000 ML IV SCH (06:59)
[2016-08-26] MEDS: CHLORHEXIDINE GLUCONATE 15 ML UD CUP MM SCH ×2 (08:26→21:08)
[2016-08-26] MEDS: ZINC SULFATE 220 MG CAP GTB SCH (08:26)
[2016-08-26] MEDS: FERROUS SULFATE 60 MG/ML 5ML CUP GTB SCH ×2 (08:26→21:08)
[2016-08-26] MEDS: DOCUSATE SODIUM 10 MG/ML (10ML CUP) GTB SCH ×2 (08:26→21:08)
[2016-08-26] MEDS: LACTOBACILLUS CHEW TAB PO SCH (08:29)
[2016-08-26] MEDS: ASCORBIC ACID 500 MG TAB GTB SCH (08:31)
[2016-08-26] MEDS: CHOLECALCIFEROL 1,000 UNIT TAB GTB SCH (08:31)
[2016-08-26] MEDS: AMIODARONE 200 MG TAB GTB SCH (08:32)
[2016-08-26] MEDS: MULTIVITAMINS 5 ML CUP GTB SCH (08:32)
[2016-08-26] MEDS: CEFEPIME 2GM/50 ML (PMX) 50 ML IVPB SCH (08:32)
[2016-08-26] MEDS: ARTIFICIAL TEARS 15 ML OPH BOTH EYES SCH ×2 (08:33→21:33)
[2016-08-26] MEDS: COLLAGENASE 30 GM TUBE TOP SCH (08:33)
--- NOTE | 2016-08-26 09:02 | RADRPT ---
PROCEDURE: XR Chest AP portable CLINICAL INDICATION: Ventilator TECHNIQUE: An AP portable radiograph of the chest was submitted. COMPARISON: 08/25/2016 FINDINGS: Support Hardware: The tracheostomy tube is stable and positioning. The right upper extremity PICC c atheter tip remains in the superior vena cava. Cardiovascular: The cardiovascular silhouette appears unremarkable except for aortic tortuosity. Lung Meyers: There is persistent atelectasis or possibly infiltrate at the left lung base. Pleural Spaces: No pneumothorax or pleural effusion is identified. Osseous Structures: The osseous structures appear intact. Soft Tissues: The right hemidiaphragm remains elevated. IMPRESSION: 1. The tracheostomy tube in right upper extremity PICC catheter stable and positioning. 2. Aortic tortuosity 3. Persistent infiltrate or atelectasis at the left lung base. 4. Persistent elevation of the right hemidiaphragm. Physician Ene Date Time Electronically viewed and signed by Physician Ene on 08/26/2016 09:01 /
[2016-08-26] MEDS: traMADol 50 MG TAB GTB SCH ×2 (09:35→21:08)
[2016-08-26] MEDS: MUPIROCIN 2% 22 GM OINT TOP SCH ×2 (09:35→21:33)
--- NOTE | 2016-08-26 10:14 | PN ---
Date/Time of Note Date/Time of Note DATE: 08/26/16 TIME: 10:03 Assessment/Plan VTE Prophylaxis VTE Prophylaxis Intervention: SCD's Lines/Catheters IV Catheter Type (from Nrs): PICC Line Central line still needed: Yes Urinary Cath still in place: Yes Reason Cath still needed: other (indicate) Assessment/Plan Chief Complaint/Hosp Course Assessment and plan: 1. Sepsis, likely secondary to urinary tract infection, line sepsis and severe dehydration Continue sepsis protocol, aggressive IV fluid, pressors, broad-spectrum IV antibiotics Infectious disease and supportability engineer been consulted We will attempt triple lumen central venous catheter insertion today and then remove PICC line 2. Urinary tract infection, Continue broad-spectrum IV antibiotics, follow urine culture and sensitivity 3. Acute renal failure, likely secondary to severe dehydration Continue IV fluids, nephrology has been consulted follow-up renal panel in a.m. 4. Severe hypernatremia, likely secondary to severe dehydration, improving Continue D5W, free water through PEG tube, follow-up renal panel and electrolytes in a.m. Nephrology has been consulted 5. Hyperkalemia, Continue IV fluid, nephrology has been consulted, will follow his recommendations 6. Transaminitis, Likely secondary to severe dehydration, caution with hepatotoxic medication Follow-up liver function tests in a.m. 7. Diabetic mellitus, better controlled Continue insulin sliding scale, continue Lantus, restart diabeticsource 8. Sacral decubitus, with evidence of lower extremity decubitus as well Wound care consulted 9. Anemia, Continue iron supplementations, will transfuse PRBC if hemoglobin is less than 7.5 Plan to transfuse 1 unit packed red blood cell Follow-up CBC in a.m. 10. Feeding, restart PEG tube feeding Condition: Guarded We will continue monitor patient closely for recommendation management treatment as clinical course Problems: Subjective 24 Hr Interval Summary Free Text/Dictation No acute changes Attempt for Right triple lumen central venous catheter insertion was unsuccessful secondary to severe dehydration Ventilator dependent Continues to be on pressors Levophed 8 Carroll Exam/Review of Systems Vital Signs Vitals Vital Signs Date Time Temp Pulse Resp B/P Pulse Ox O2 Delivery O2 Flow Rate FiO2 08/26/16 09:59 77 22 98 30 08/26/16 08:00 98.9 100/73 Mechanical Ventilator Intake and Output 08/25/16 08/25/16 08/26/16 15:00 23:00 07:00 Intake Total 537.5 ml 3145.00 ml 1092.00 ml Output Total 575 ml 620 ml 630 ml Balance -37.5 ml 2525.00 ml 462.00 ml Exam General: The patient is cachectic, minimal response to pain stimuli HEENT: Atraumatic, normocephalic. The pupils are symmetric Neck: Tracheostomy in place Chest: Normal Lungs: Decreased breath sounds bilateral lower lung field Heart: Normal S1-S2, Regular rhythm and rate. Abdomen: Soft , nontender, nondistended , bowel sounds are present. PEG tube in place Extremities: Severe muscle atrophy, decubitus ulcer, flaccid Neurologic: Minimal response to pain stimuli Results Result Diagram: 08/26/16 0340 08/25/16 0430 Results 24 hrs Laboratory Tests Test 08/25/16 14:51 08/25/16 17:32 08/25/16 20:45 08/26/16 00:23 Bedside Glucose 231 H 174 174 191 Test 08/26/16 03:40 08/26/16 05:00 08/26/16 05:33 08/26/16 08:24 Basophils # Pending Basophils % Pending Blood Morphology Comment Eosinophils # Pending Eosinophils % Pending Hematocrit 23.2 L Hemoglobin 7.8 L Lactic Acid Level 1.6 Lymphocytes # Pending Lymphocytes % Pending Mean Corpuscular Hemoglobin 28.6 L Mean Corpuscular Hemoglobin Concent 33.6 Mean Corpuscular Volume 85.0 Mean Platelet Volume 13.5 H Monocytes # Pending Monocytes % Pending Neutrophils # Pending Neutrophils % Pending Nucleated Red Blood Cells # Pending Nucleated Red Blood Cells % Pending Platelet Count 144 # Red Blood Count 2.72 L Red Cell Distribution Width 17.7 H White Blood Count 10.3 Arterial Blood HCO3 16.3 L Arterial Blood Base Excess -8.3 L Arterial Blood Oxygen Saturation 95.9 Pedro Test ACCEPTAB Arterial Blood Gas Puncture Site Left Radial Arterial Blood Carboxyhemoglobin 0.3 Arterial Blood Date Drawn 08/26/2016 5:02:54 AM Arterial Blood Methemoglobin 0.4 Arterial Blood pCO2 (Temp correct) 30.3 L Arterial Blood pH (Temp corrected) 7.349 L Arterial Blood pO2 (Temp corrected) 88.7 Blood Gas A-a O2 Differential 89.6 H Blood Gas Actual Respiration Rate 18 Blood Gas Inspiratory Pressure 20.0 Blood Gas Low PEEP Setting 5.0 Blood Gas Modality VENT - AC Blood Gas Notified Time 08/26/2016 5:20:20 AM Blood Gas Notified Whom RTR Blood Gas Respiration Rate 16.0 Blood Gas Specimen Source Blood arterial Blood Gas Temperature 37.0 Blood Gas Tidal Volume 550.0 FiO2 30.0 Oxyhemoglobin Percent 95.2 Total Hemoglobin 9.0 L Bedside Glucose 170 185 Medications Medications Current Medications Ondansetron HCl (Zofran Inj) 4 mg Q6H PRN IV NAUSEA AND/OR VOMITING; Start 08/23 at 23:00 Morphine Sulfate (morphine) 2 mg Q4H PRN IV SEVERE PAIN LEVEL 7-10 Last administered on 08/24/16 23:58; Admin Dose 2 MG; Start 08/23/16 at 23:00 Acetaminophen (Tylenol Tab) 650 mg Q4H PRN GTB MILD PAIN LEVEL 1-3 Last administered on 08/24/16 16:15; Admin Dose 650 MG; Start 08/23/16 at 23:00 Amiodarone HCl (Cordarone) 200 mg DAILY GTB Last administered on 08/26/16 08:32 ; Admin Dose 200 MG; Start 08/24/16 at 09:00 Ascorbic Acid (Vitamin C) 500 mg DAILY GTB Last administered on 08/26/16 08:31 ; Admin Dose 500 MG; Start 08/24/16 at 09:00 Bisacodyl (Dulcolax Supp) 10 mg Q24H PRN [place] PRN; Start 08/23/16 at 23:00 Chlorhexidine Gluconate (Peridex) 15 ml Q12 MM Last administered on 08/26/16 08 :26; Admin Dose 15 ML; Start 08/24/16 at 09:00 Cholecalciferol (Vitamin D) 1,000 unit DAILY GTB Last administered on 08/26/16 08:31; Admin Dose 1,000 UNIT; Start 08/24/16 at 09:00 Eye Lubricant (Artificial Tears Oph) 2 drop BID BOTH EYES Last administered on 08/26/16 08:33; Admin Dose 2 DROP; Start 08/24/16 at 09:00 Simethicone (Mylicon) 80 mg Q12 PRN GTB DISTENSION/GAS/BLOATING; Start 08/23/16 at 23:00 Tramadol HCl (Ultram) 50 mg BID GTB Last administered on 08/26/16 09:35; Admin Dose 50 MG; Start 08/24/16 at 09:00 Zinc Sulfate (Zinc Sulfate) 220 mg DAILY GTB Last administered on 08/26/16 08: 26; Admin Dose 220 MG; Start 08/24/16 at 09:00 Lactobacillus Acidoph/Bulgaricus (Floranex) 1 tab DAILY PO Last administered on 08/26/16 08:29; Admin Dose 1 TAB; Start 08/24/16 at 11:00 Multivitamins (Thera-Plus) 5 ml DAILY GTB Last administered on 08/26/16 08:32; Admin Dose 5 ML; Start 08/24/16 at 09:00 Lansoprazole (Prevacid) 30 mg BID@06,18 GTB Last administered on 08/26/16 05:35 ; Admin Dose 30 MG; Start 08/24/16 at 06:00 Ferrous Sulfate (Feosol Liquid Cup) 330 mg BID GTB Last administered on 08:26; Admin Dose 330 MG; Start 08/24/16 at 09:00 Docusate Sodium 100 mg 100 mg BID GTB Last administered on 08/26/16 08:26; Admin Dose 100 MG; Start 08/24/16 at 09:00 Dextrose 1,000 ml @ 100 mls/hr Q10H IV Last administered on 08/26/16 06:59; Admin Dose 100 MLS/HR; Start 08/23/16 at 23:00 Norepinephrine/ Dextrose (Levophed/D5W) 500 ml @ 1.87 mls/hr TITRATE IV Last administered on 08/25/16 17:29; Admin Dose 37.5 MLS/HR; Start 08/24/16 at 03:30 Collagenase (Santyl) 1 applic DAILY TOP Last administered on 08/26/16 08:33; Admin Dose 1 APPLIC; Start 08/24/16 at 03:30 Miscellaneous Information 1 ea NOTE XX ; Start 08/24/16 at 22:00 Glucose (Glutose) 15 gm Q15M PRN PO DECREASED GLUCOSE; Start 08/24/16 at 22:00 Glucose (Glutose) 22.5 gm Q15M PRN PO DECREASED GLUCOSE; Start 08/24/16 at 22:00 Dextrose (D50w Syringe) 25 ml Q15M PRN IV DECREASED GLUCOSE; Start 08/24/16 at 22:00 Dextrose (D50w Syringe) 50 ml Q15M PRN IV DECREASED GLUCOSE; Start 08/24/16 at 22:00 Glucagon (Glucagen) 1 mg Q15M PRN IM DECREASED GLUCOSE; Start 08/24/16 at 22:00 Glucose (Glutose) 15 gm Q15M PRN BUCCAL DECREASED GLUCOSE; Start 08/24/16 at 22: 00 Insulin Aspart NOVOLOG *MODERATE* ALGORI... Q4 SC Last administered on 08:48; Admin Dose 4 UNIT; Start 08/25/16 at 09:00 Vancomycin HCl/ Sodium Chloride (Vancocin/NS) 250 ml @ 83.333 mls/ hr Q48H IVPB Last administered on 08/25/16 10:56; Admin Dose 83.333 MLS/HR; Start at 10:00 Mupirocin (Bactroban) 1 applic BID TOP Last administered on 08/26/16 09:35; Admin Dose 1 APPLIC; Start 08/25/16 at 21:00; Stop 08/29/16 at 11:00 Insulin Glargine 10 unit 10 unit QPM SC Last administered on 08/25/16 20:54; Admin Dose 10 UNIT; Start 08/25/16 at 21:00 Cefepime HCl (Maxipime 2gm/50 ml (Pmx)) 50 ml @ 100 mls/hr Q24H IVPB Last administered on 08/26/16 08:32; Admin Dose 100 MLS/HR; Start 08/26/16 at 09:00 IAM GÓMEZ MD Aug 26, 2016 10:13
[2016-08-26 10:28] LABS: OVALOCYTES 1+
[2016-08-26 10:42] LABS: POTASSIUM 4.5 mmol/L (3.5-5.1)
[2016-08-26 10:44] LABS: CREATININE 2.55 mg/dl (0.61-1.24)
[2016-08-26 10:45] LABS: CALCIUM 7.8 mg/dl (8.4-10.2)
[2016-08-26] MEDS ORDERED: LIDOCAINE 1% (MDV) 20 ML INJ SC ONE (12:00)
--- NOTE | 2016-08-26 12:07 | PN ---
DATE: 08/26/2016 INFECTIOUS DISEASE PROGRESS NOTE SUBJECTIVE: The patient remains unchanged overnight, still on pressors, unresponsive, afebrile. VITAL SIGNS: T-max was 99.5, pulse 79, respirations 22, blood pressure 106/73, saturation 98 on freddie t. LABORATORY DATA: WBC 10.8, H and H 7.8 and 23.2, platelets 144, neutrophils 90.4. BUN 142, creatin ine 2.55. MICROBIOLOGY: Blood cultures growing MRSA. Urine culture growing gram-negative rods. INDWELLINGS: The patient has trach, PEG, Lopez, right upper extremity PICC line. DIAGNOSTICS: Chest x-ray revealed persistent infiltrate or atelectasis at the left lung base. ANTIMICROBIALS: 1. Vancomycin. 2. Cefepime. PHYSICAL EXAMINATION: GENERAL: Chronically ill-appearing, elderly man who is lying comfortably in bed. HEENT: Head atraumatic, normocephalic. Sclerae anicteric. Buccal mucosa dry. NECK: Supple. Tracheostomy present. CHEST: Rise symmetrical. Breath sounds diminished to bases. HEART: S1, S2. ABDOMEN: Soft, bowel sounds present. EXTREMITIES: With trace edema. SKIN: With multiple unstageable decubitus. Sacral wound looks infected. ASSESSMENT: 1. Severe sepsis with shock. 2. Methicillin-resistant Staphylococcus aureus septicemia, possibly secondary to infected PICC line that was placed on previous admission. 3. Infected decubitus. 4. Urinary tract infection. 5. Methicillin-resistant Staphylococcus aureus nares colonization. 6. Acute renal failure. 7. Transaminitis. 8. Healthcare-associated pneumonia. 9. Chronic encephalopathy. PLAN: The patient remains hemodynamically unstable, pending PICC line discontinuation. He is cover ed with appropriate antibiotics. Urine culture pending wound culture pending. He is getting Bactro ban to nares. Consider surgical evaluation for possible debridement. Dictated By: CHRISS RIVAS LIFESTYLE DIRECTOR for BETHANY CASTILLO/LESLY Conf#: [id number] DID#: [id number]
[2016-08-26] MEDS: VANCOMYCIN 750 MG in SOD CHLORIDE 0.9% 150 ML IVPB SCH (12:32)
--- NOTE | 2016-08-26 13:40 | CONS ---
Date/Time of Note Date/Time of Note DATE: 08/26/16 TIME: 13:37 Consult Date/Type/Reason Admit Date/Time Aug 23, 2016 at 22:10 Initial Consult Date Type of Consultation: pulm Subjective Confused Moderate secretions Continues vasopressors Objective Vital Signs Date Time Temp Pulse Resp B/P Pulse Ox O2 Delivery O2 Flow Rate FiO2 08/26/16 12:00 76 08/26/16 11:35 21 100 08/26/16 10:30 106/73 Mechanical Ventilator 08/26/16 09:59 30 08/26/16 08:00 98.9 Intake and Output 08/25/16 08/25/16 08/26/16 15:00 23:00 07:00 Intake Total 537.5 ml 3145.00 ml 1092.00 ml Output Total 575 ml 620 ml 630 ml Balance -37.5 ml 2525.00 ml 462.00 ml PHYSICAL EXAMINATION GENERAL: Elderly gentleman, chronically ill-appearing on mechanical ventilation VITAL SIGNS: see below. HEENT: Pupils equal, round, and reactive to light. Tracheostomy site clean and intact. CARDIAC: S1, S2, tachycardia. CHEST: Diminished air entry bilaterally. ABDOMEN: Mildly distended. Decreased bowel sounds. EXTREMITIES: No cyanosis, clubbing edema +1. NEUROLOGIC: Generalized weakness unable to assess Results/Medications Result Diagram: 08/26/16 0340 08/26/16 0340 Results 24 hrs Laboratory Tests Test 08/25/16 14:51 08/25/16 17:32 08/25/16 20:45 08/26/16 00:23 Bedside Glucose 231 H 174 174 191 Test 08/26/16 03:40 08/26/16 05:00 08/26/16 05:33 08/26/16 08:24 Anion Gap 21 H Basophils # 0.0 Basophils % 0.0 Blood Morphology Comment Blood Urea Nitrogen 142 H Calcium Level 7.8 L Carbon Dioxide Level 18 L Chloride Level 125 H Creatinine 2.55 H Differential Comment AUTO w/SCAN Eosinophils # 0.3 Eosinophils % 2.6 Glucose Level 143 # Hematocrit 23.2 L Hemoglobin 7.8 L Lactic Acid Level 1.6 Lymphocytes # 0.4 L Lymphocytes % 3.5 L Mean Corpuscular Hemoglobin 28.6 L Mean Corpuscular Hemoglobin Concent 33.6 Mean Corpuscular Volume 85.0 Mean Platelet Volume 13.5 H Monocytes # 0.4 Monocytes % 3.5 Neutrophils # 9.3 H Neutrophils % 90.4 H Nucleated Red Blood Cells # 0.0 Nucleated Red Blood Cells % 0.0 Ovalocytes 1+ Platelet Count 144 # Potassium Level 4.5 Red Blood Count 2.72 L Red Cell Distribution Width 17.7 H Sodium Level 159 H White Blood Count 10.3 Arterial Blood HCO3 16.3 L Arterial Blood Base Excess -8.3 L Arterial Blood Oxygen Saturation 95.9 Pedro Test ACCEPTAB Arterial Blood Gas Puncture Site Left Radial Arterial Blood Carboxyhemoglobin 0.3 Arterial Blood Date Drawn 08/26/2016 5:02:54 AM Arterial Blood Methemoglobin 0.4 Arterial Blood pCO2 (Temp correct) 30.3 L Arterial Blood pH (Temp corrected) 7.349 L Arterial Blood pO2 (Temp corrected) 88.7 Blood Gas A-a O2 Differential 89.6 H Blood Gas Actual Respiration Rate 18 Blood Gas Inspiratory Pressure 20.0 Blood Gas Low PEEP Setting 5.0 Blood Gas Modality VENT - AC Blood Gas Notified Time 08/26/2016 5:20:20 AM Blood Gas Notified Whom RTR Blood Gas Respiration Rate 16.0 Blood Gas Specimen Source Blood arterial Blood Gas Temperature 37.0 Blood Gas Tidal Volume 550.0 FiO2 30.0 Oxyhemoglobin Percent 95.2 Total Hemoglobin 9.0 L Bedside Glucose 170 185 Test 08/26/16 12:27 Bedside Glucose 165 Medications Current Medications Ondansetron HCl (Zofran Inj) 4 mg Q6H PRN IV NAUSEA AND/OR VOMITING; Start 08/23 at 23:00 Morphine Sulfate (morphine) 2 mg Q4H PRN IV SEVERE PAIN LEVEL 7-10 Last administered on 08/24/16 23:58; Admin Dose 2 MG; Start 08/23/16 at 23:00 Acetaminophen (Tylenol Tab) 650 mg Q4H PRN GTB MILD PAIN LEVEL 1-3 Last administered on 08/24/16 16:15; Admin Dose 650 MG; Start 08/23/16 at 23:00 Amiodarone HCl (Cordarone) 200 mg DAILY GTB Last administered on 08/26/16 08:32 ; Admin Dose 200 MG; Start 08/24/16 at 09:00 Ascorbic Acid (Vitamin C) 500 mg DAILY GTB Last administered on 08/26/16 08:31 ; Admin Dose 500 MG; Start 08/24/16 at 09:00 Bisacodyl (Dulcolax Supp) 10 mg Q24H PRN [place] PRN; Start 08/23/16 at 23:00 Chlorhexidine Gluconate (Peridex) 15 ml Q12 MM Last administered on 08/26/16 08 :26; Admin Dose 15 ML; Start 08/24/16 at 09:00 Cholecalciferol (Vitamin D) 1,000 unit DAILY GTB Last administered on 08/26/16 08:31; Admin Dose 1,000 UNIT; Start 08/24/16 at 09:00 Eye Lubricant (Artificial Tears Oph) 2 drop BID BOTH EYES Last administered on 08/26/16 08:33; Admin Dose 2 DROP; Start 08/24/16 at 09:00 Simethicone (Mylicon) 80 mg Q12 PRN GTB DISTENSION/GAS/BLOATING; Start 08/23/16 at 23:00 Tramadol HCl (Ultram) 50 mg BID GTB Last administered on 08/26/16 09:35; Admin Dose 50 MG; Start 08/24/16 at 09:00 Zinc Sulfate (Zinc Sulfate) 220 mg DAILY GTB Last administered on 08/26/16 08: 26; Admin Dose 220 MG; Start 08/24/16 at 09:00 Lactobacillus Acidoph/Bulgaricus (Floranex) 1 tab DAILY PO Last administered on 08/26/16 08:29; Admin Dose 1 TAB; Start 08/24/16 at 11:00 Multivitamins (Thera-Plus) 5 ml DAILY GTB Last administered on 08/26/16 08:32; Admin Dose 5 ML; Start 08/24/16 at 09:00 Lansoprazole (Prevacid) 30 mg BID@06,18 GTB Last administered on 08/26/16 05:35 ; Admin Dose 30 MG; Start 08/24/16 at 06:00 Ferrous Sulfate (Feosol Liquid Cup) 330 mg BID GTB Last administered on 08:26; Admin Dose 330 MG; Start 08/24/16 at 09:00 Docusate Sodium 100 mg 100 mg BID GTB Last administered on 08/26/16 08:26; Admin Dose 100 MG; Start 08/24/16 at 09:00 Dextrose 1,000 ml @ 100 mls/hr Q10H IV Last administered on 08/26/16 06:59; Admin Dose 100 MLS/HR; Start 08/23/16 at 23:00 Norepinephrine/ Dextrose (Levophed/D5W) 500 ml @ 1.87 mls/hr TITRATE IV Last administered on 08/26/16 12:37; Admin Dose 15 MLS/HR; Start 08/24/16 at 03:30 Collagenase (Santyl) 1 applic DAILY TOP Last administered on 08/26/16 08:33; Admin Dose 1 APPLIC; Start 08/24/16 at 03:30 Miscellaneous Information 1 ea NOTE XX ; Start 08/24/16 at 22:00 Glucose (Glutose) 15 gm Q15M PRN PO DECREASED GLUCOSE; Start 08/24/16 at 22:00 Glucose (Glutose) 22.5 gm Q15M PRN PO DECREASED GLUCOSE; Start 08/24/16 at 22:00 Dextrose (D50w Syringe) 25 ml Q15M PRN IV DECREASED GLUCOSE; Start 08/24/16 at 22:00 Dextrose (D50w Syringe) 50 ml Q15M PRN IV DECREASED GLUCOSE; Start 08/24/16 at 22:00 Glucagon (Glucagen) 1 mg Q15M PRN IM DECREASED GLUCOSE; Start 08/24/16 at 22:00 Glucose (Glutose) 15 gm Q15M PRN BUCCAL DECREASED GLUCOSE; Start 08/24/16 at 22: 00 Insulin Aspart (Novolog Insulin Pen) NOVOLOG *MODERATE* ALGORI... Q4 SC Last administered on 08/26/16 12:31; Admin Dose 2 UNIT; Start 08/25/16 at 09:00 Mupirocin 1 applic 1 applic BID TOP Last administered on 08/26/16 09:35; Admin Dose 1 APPLIC; Start 08/25/16 at 21:00; Stop 08/29/16 at 11:00 Cefepime HCl (Maxipime 2gm/50 ml (Pmx)) 50 ml @ 100 mls/hr Q24H IVPB Last administered on 08/26/16 08:32; Admin Dose 100 MLS/HR; Start 08/26/16 at 09:00 Insulin Glargine 12 unit 12 unit QPM SC ; Start 08/26/16 at 21:00 Vancomycin HCl/ Sodium Chloride (Vancocin/NS) 150 ml @ 75 mls/hr Q24H IVPB Last administered on 08/26/16t 12:32; Admin Dose 75 MLS/HR; Start 08/26/16 at 13: 00 Assessment/Plan Chief Complaint/Hosp Course IMPRESSION: 1. Shock-hypovolemic/septic--due to likely cath-related BSI 2. Urosepsis 3. Acute kidney injury, likely due to hypovolemia and prerenal causes. 4. Transaminitis, likely due to ischemic hepatopathy. 5. Troponin leak, possibly likely due to demand ischemia. 6. Possible ventilator-associated pneumonia versus aspiration. 7. Chronic encephalopathy. RECOMMENDATIONS: 1. Broad spectrum antibiotics as initiated. 2. Ventilatory support with plans to lower FIO2 as tolerated. 3. Place new PICC line 4. Decrease vasopressors as tolerated 5. Transfusion 1 unit packed red blood cells 6. Renal recommendations consider free water. Overall prognosis remains guarded Problems: NICK BALLARD MD[facility] Aug 26, 2016 13:39
[2016-08-26] MEDS ORDERED: SOD CHLORIDE 0.9% 500 ML IV ONE (15:30)
--- NOTE | 2016-08-26 15:49 | CONS ---
Date/Time of Note Date/Time of Note DATE: 08/26/16 TIME: 15:47 Assessment/Plan Assessment/Plan Chief Complaint/Hosp Course 1. Acute hypernatremia better 2. Acute kidney injury on chronic kidney disease secondary to previous ischemic acute tubular necrosis from severe prerenal azotemia. 3. Severe prerenal azotemia 4. Sepsis secondary to urinary tract infection. 5. History of recent admission. 6. 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 7. Chronic respiratory failure, status post tracheostomy and status post PEG tube placement. plan iv fluid Problems: Consultation Date/Type/Reason Admit Date/Time Aug 23, 2016 at 22:10 Initial Consult Date Type of Consultation: RENAL 24 HR Interval Summary Subjective hx not possible: pt non-verbal Exam/Review of Systems Vital Signs Vitals Vital Signs Date Time Temp Pulse Resp B/P Pulse Ox O2 Delivery O2 Flow Rate FiO2 08/26/16 15:26 77 19 99 08/26/16 15:00 104/68 Room Air 08/26/16 12:00 97.8 08/26/16 09:59 30 Intake and Output 08/25/16 08/25/16 08/26/16 15:00 23:00 07:00 Intake Total 537.5 ml 3145.00 ml 1092.00 ml Output Total 575 ml 620 ml 630 ml Balance -37.5 ml 2525.00 ml 462.00 ml Exam Respiratory: diminished breath sounds Cardiovascular: regular rate and rhythm Gastrointestinal: soft Musculoskeletal: nl extremities to inspection Extremities: No edema Results Result Diagram: 08/26/16 0340 08/26/16 0340 Results 24 hrs Laboratory Tests Test 08/25/16 17:32 08/25/16 20:45 08/26/16 00:23 08/26/16 03:40 Bedside Glucose 174 174 191 Anion Gap 21 H Basophils # 0.0 Basophils % 0.0 Blood Morphology Comment Blood Urea Nitrogen 142 H Calcium Level 7.8 L Carbon Dioxide Level 18 L Chloride Level 125 H Creatinine 2.55 H Differential Comment AUTO w/SCAN Eosinophils # 0.3 Eosinophils % 2.6 Glucose Level 143 # Hematocrit 23.2 L Hemoglobin 7.8 L Lactic Acid Level 1.6 Lymphocytes # 0.4 L Lymphocytes % 3.5 L Mean Corpuscular Hemoglobin 28.6 L Mean Corpuscular Hemoglobin Concent 33.6 Mean Corpuscular Volume 85.0 Mean Platelet Volume 13.5 H Monocytes # 0.4 Monocytes % 3.5 Neutrophils # 9.3 H Neutrophils % 90.4 H Nucleated Red Blood Cells # 0.0 Nucleated Red Blood Cells % 0.0 Ovalocytes 1+ Platelet Count 144 # Potassium Level 4.5 Red Blood Count 2.72 L Red Cell Distribution Width 17.7 H Sodium Level 159 H White Blood Count 10.3 Test 08/26/16 05:00 08/26/16 05:33 08/26/16 08:24 08/26/16 12:27 Arterial Blood HCO3 16.3 L Arterial Blood Base Excess -8.3 L Arterial Blood Oxygen Saturation 95.9 Pedro Test ACCEPTAB Arterial Blood Gas Puncture Site Left Radial Arterial Blood Carboxyhemoglobin 0.3 Arterial Blood Date Drawn 08/26/2016 5:02:54 AM Arterial Blood Methemoglobin 0.4 Arterial Blood pCO2 (Temp correct) 30.3 L Arterial Blood pH (Temp corrected) 7.349 L Arterial Blood pO2 (Temp corrected) 88.7 Blood Gas A-a O2 Differential 89.6 H Blood Gas Actual Respiration Rate 18 Blood Gas Inspiratory Pressure 20.0 Blood Gas Low PEEP Setting 5.0 Blood Gas Modality VENT - AC Blood Gas Notified Time 08/26/2016 5:20:20 AM Blood Gas Notified Whom RTR Blood Gas Respiration Rate 16.0 Blood Gas Specimen Source Blood arterial Blood Gas Temperature 37.0 Blood Gas Tidal Volume 550.0 FiO2 30.0 Oxyhemoglobin Percent 95.2 Total Hemoglobin 9.0 L Bedside Glucose 170 185 165 Medications Medications Current Medications Ondansetron HCl (Zofran Inj) 4 mg Q6H PRN IV NAUSEA AND/OR VOMITING; Start 08/23 at 23:00 Morphine Sulfate (morphine) 2 mg Q4H PRN IV SEVERE PAIN LEVEL 7-10 Last administered on 08/24/16 23:58; Admin Dose 2 MG; Start 08/23/16 at 23:00 Acetaminophen (Tylenol Tab) 650 mg Q4H PRN GTB MILD PAIN LEVEL 1-3 Last administered on 08/24/16 16:15; Admin Dose 650 MG; Start 08/23/16 at 23:00 Amiodarone HCl (Cordarone) 200 mg DAILY GTB Last administered on 08/26/16 08:32 ; Admin Dose 200 MG; Start 08/24/16 at 09:00 Ascorbic Acid (Vitamin C) 500 mg DAILY GTB Last administered on 08/26/16 08:31 ; Admin Dose 500 MG; Start 08/24/16 at 09:00 Bisacodyl (Dulcolax Supp) 10 mg Q24H PRN [place] PRN; Start 08/23/16 at 23:00 Chlorhexidine Gluconate (Peridex) 15 ml Q12 MM Last administered on 08/26/16 08 :26; Admin Dose 15 ML; Start 08/24/16 at 09:00 Cholecalciferol (Vitamin D) 1,000 unit DAILY GTB Last administered on 08/26/16 08:31; Admin Dose 1,000 UNIT; Start 08/24/16 at 09:00 Eye Lubricant (Artificial Tears Oph) 2 drop BID BOTH EYES Last administered on 08/26/16 08:33; Admin Dose 2 DROP; Start 08/24/16 at 09:00 Simethicone (Mylicon) 80 mg Q12 PRN GTB DISTENSION/GAS/BLOATING; Start 08/23/16 at 23:00 Tramadol HCl (Ultram) 50 mg BID GTB Last administered on 08/26/16 09:35; Admin Dose 50 MG; Start 08/24/16 at 09:00 Zinc Sulfate (Zinc Sulfate) 220 mg DAILY GTB Last administered on 08/26/16 08: 26; Admin Dose 220 MG; Start 08/24/16 at 09:00 Lactobacillus Acidoph/Bulgaricus (Floranex) 1 tab DAILY PO Last administered on 08/26/16 08:29; Admin Dose 1 TAB; Start 08/24/16 at 11:00 Multivitamins (Thera-Plus) 5 ml DAILY GTB Last administered on 08/26/16 08:32; Admin Dose 5 ML; Start 08/24/16 at 09:00 Lansoprazole (Prevacid) 30 mg BID@,18 GTB Last administered on 08/26/16 05:35 ; Admin Dose 30 MG; Start 08/24/16 at 06:00 Ferrous Sulfate (Feosol Liquid Cup) 330 mg BID GTB Last administered on 08:26; Admin Dose 330 MG; Start 08/24/16 at 09:00 Docusate Sodium 100 mg 100 mg BID GTB Last administered on 08/26/16 08:26; Admin Dose 100 MG; Start 08/24/16 at 09:00 Norepinephrine/ Dextrose (Levophed/D5W) 500 ml @ 1.87 mls/hr TITRATE IV Last administered on 08/26/16 12:37; Admin Dose 15 MLS/HR; Start 08/24/16 at 03:30 Collagenase (Santyl) 1 applic DAILY TOP Last administered on 08/26/16 08:33; Admin Dose 1 APPLIC; Start 08/24/16 at 03:30 Miscellaneous Information 1 ea NOTE XX ; Start 08/24/16 at 22:00 Glucose (Glutose) 15 gm Q15M PRN PO DECREASED GLUCOSE; Start 08/24/16 at 22:00 Glucose (Glutose) 22.5 gm Q15M PRN PO DECREASED GLUCOSE; Start 08/24/16 at 22:00 Dextrose (D50w Syringe) 25 ml Q15M PRN IV DECREASED GLUCOSE; Start 08/24/16 at 22:00 Dextrose (D50w Syringe) 50 ml Q15M PRN IV DECREASED GLUCOSE; Start 08/24/16 at 22:00 Glucagon (Glucagen) 1 mg Q15M PRN IM DECREASED GLUCOSE; Start 08/24/16 at 22:00 Glucose (Glutose) 15 gm Q15M PRN BUCCAL DECREASED GLUCOSE; Start 08/24/16 at 22: 00 Insulin Aspart (Novolog Insulin Pen) NOVOLOG *MODERATE* ALGORI... Q4 SC Last administered on 08/26/16 12:31; Admin Dose 2 UNIT; Start 08/25/16 at 09:00 Mupirocin 1 applic 1 applic BID TOP Last administered on 08/26/16 09:35; Admin Dose 1 APPLIC; Start 08/25/16 at 21:00; Stop 08/29/16 at 11:00 Cefepime HCl (Maxipime 2gm/50 ml (Pmx)) 50 ml @ 100 mls/hr Q24H IVPB Last administered on 08/26/16 08:32; Admin Dose 100 MLS/HR; Start 08/26/16 at 09:00 Insulin Glargine 12 unit 12 unit QPM SC ; Start 08/26/16 at 21:00 Vancomycin HCl 750 mg/Sodium Chloride 150 ml @ 75 mls/hr Q24H IVPB Last administered on 08/26/16t 12:32; Admin Dose 75 MLS/HR; Start 08/26/16 at 13:00 Sodium Chloride 500 ml @ 500 mls/hr Q1H ONCE IV ; Start 08/26/16 at 15:30; Stop 08/26/16 at 16:29 Sodium Chloride (NS) 1,000 ml @ 100 mls/hr Q10H IV ; Start 08/26/16 at 15:30 PATRICIO ELIZALDE MD Aug 26, 2016 15:48
[2016-08-26] MEDS: SOD CHLORIDE 0.9% 1,000 ML IV SCH (16:30)
[2016-08-26] MEDS ORDERED: INSULIN GLARGINE [LANtus] 3 ML PEN SC SCH (21:00)
[2016-08-27] VITALS (94 sets, daily range): BP systolic 79–130; BP diastolic 43–85; PULSE 68–81; RESP 16–32
[2016-08-27] MEDS: INSULIN ASPART [NOVOLOG] 3 ML PEN SC SCH ×6 (01:00→21:00)
[2016-08-27] MEDS: SOD CHLORIDE 0.9% 1,000 ML IV SCH (03:22)
[2016-08-27 05:16] LABS: EOSINOPHILS # 0.4 10^3/ul (0.0-0.5); EOSINOPHILS % 3.8 % (0.0-7.0); HEMATOCRIT 21.6 % (42.0-52.0); HEMOGLOBIN 7.2 g/dl (14.0-18.0); LYMPHOCYTES # 0.3 10^3/ul (0.8-2.9); LYMPHOCYTES % 3.2 % (15.0-51.0); MEAN CORPUSCULAR HEMOGLOBIN 28.1 pg (29.0-33.0); MEAN CORPUSCULAR HGB CONC 33.2 g/dl (32.0-37.0); MEAN CORPUSCULAR VOLUME 84.7 fl (82.0-101.0); MEAN PLATELET VOLUME 12.8 fl (7.4-10.4); MONOCYTE # 0.3 10^3/ul (0.3-0.9); MONOCYTES % 2.7 % (0.0-11.0); NEUTROPHIL # 9.1 10^3/ul (1.6-7.5); NEUTROPHILS % 90.3 % (39.0-77.0); PLATELET COUNT 154 10^3/UL (140-440); RED BLOOD COUNT 2.55 10^6/ul (4.70-6.10); RED CELL DISTRIBUTION WIDTH 17.4 % (11.5-14.5); UNCORRECTED WBC 10.1 10^3/ul (4.8-10.8); WHITE BLOOD COUNT 10.1 10^3/ul (4.8-10.8)
[2016-08-27 05:20] LABS: POTASSIUM 3.8 mmol/L (3.5-5.1)
[2016-08-27 05:23] LABS: CREATININE 2.39 mg/dl (0.61-1.24)
[2016-08-27 05:24] LABS: CALCIUM 8.1 mg/dl (8.4-10.2)
[2016-08-27 05:39] LABS: CONDITION 1; LH ANALYZER COMMENTS 1; SUSPECT 1
[2016-08-27] MEDS: LANSOPRAZOLE 30 MG CAP GTB SCH ×2 (06:13→18:00)
[2016-08-27 07:02] LABS: WHITE BLOOD COUNT 9.7 10^3/ul (4.8-10.8)
[2016-08-27 08:21] LABS: AADO2 Arterial 78.1 mmHg (7.0-24.0); Allen Test ACCEPTAB; Arterial Base Excess -8.3 mmol/L (-3.0-3); Arterial COHb 0.3 % (0.0-3.0); Arterial Fraction of Oxyhgb 95.9 % (93.0-99.0); Arterial HCO3 16.1 mmol/L (22.0-26.0); Arterial MetHb 0.2 % (0.0-1.5); Arterial Total Hemglobin 7.8 g/dl (12.0-18.0); MODE VENT - AC
[2016-08-27] MEDS: ZINC SULFATE 220 MG CAP GTB SCH (09:39)
[2016-08-27] MEDS: ASCORBIC ACID 500 MG TAB GTB SCH (09:39)
[2016-08-27] MEDS: DOCUSATE SODIUM 10 MG/ML (10ML CUP) GTB SCH ×2 (09:39→22:00)
[2016-08-27] MEDS: CHLORHEXIDINE GLUCONATE 15 ML UD CUP MM SCH ×2 (09:39→22:00)
[2016-08-27] MEDS: MULTIVITAMINS 5 ML CUP GTB SCH (09:39)
[2016-08-27] MEDS: FERROUS SULFATE 60 MG/ML 5ML CUP GTB SCH ×2 (09:39→22:00)
[2016-08-27] MEDS: LACTOBACILLUS CHEW TAB PO SCH (09:39)
[2016-08-27] MEDS: AMIODARONE 200 MG TAB GTB SCH (09:40)
[2016-08-27] MEDS: CHOLECALCIFEROL 1,000 UNIT TAB GTB SCH (09:40)
[2016-08-27] MEDS: traMADol 50 MG TAB GTB SCH ×2 (09:40→22:01)
[2016-08-27] MEDS: MUPIROCIN 2% 22 GM OINT TOP SCH ×2 (09:41→21:00)
[2016-08-27] MEDS: COLLAGENASE 30 GM TUBE TOP SCH (09:41)
[2016-08-27] MEDS: ARTIFICIAL TEARS 15 ML OPH BOTH EYES SCH ×2 (09:42→22:02)
--- NOTE | 2016-08-27 09:46 | PN ---
Date/Time of Note Date/Time of Note DATE: 08/27/16 TIME: 09:43 Assessment/Plan VTE Prophylaxis VTE Prophylaxis Intervention: other Lines/Catheters IV Catheter Type (from Nrs): PICC Line Central line still needed: Yes (We will discontinue the central line when patient is off pressors) Urinary Cath still in place: Yes Reason Cath still needed: other (indicate) Assessment/Plan Chief Complaint/Hosp Course Assessment and plan: 1. Sepsis, likely secondary to urinary tract infection, line sepsis and severe dehydration Continue sepsis protocol, aggressive IV fluid, pressors, broad-spectrum IV antibiotics Infectious disease and evaporator operator been consulted We will attempt triple lumen central venous catheter insertion today and then remove PICC line 2. Urinary tract infection, Continue broad-spectrum IV antibiotics, follow urine culture and sensitivity 3. Acute renal failure, likely secondary to severe dehydration Continue IV fluids, nephrology has been consulted follow-up renal panel in a.m. 4. Severe hypernatremia, likely secondary to severe dehydration, improving Continue D5W, free water through PEG tube, follow-up renal panel and electrolytes in a.m. Nephrology has been consulted 5. Hyperkalemia, Continue IV fluid, nephrology has been consulted, will follow his recommendations 6. Transaminitis, Likely secondary to severe dehydration, caution with hepatotoxic medication Follow-up liver function tests in a.m. 7. Diabetic mellitus, better controlled Continue insulin sliding scale, continue Lantus, restart diabeticsource 8. Sacral decubitus, with evidence of lower extremity decubitus as well Wound care consulted 9. Anemia, Continue iron supplementations, will transfuse PRBC if hemoglobin is less than 7.5 Plan to transfuse 1 unit packed red blood cell Follow-up CBC in a.m. 10. Feeding, continue PEG tube feeding Condition: Guarded We will continue monitor patient closely for recommendation management treatment as clinical course Problems: Subjective 24 Hr Interval Summary Free Text/Dictation No acute changes Continues to be vent dependent and on pressors Patient open his eyes with verbal stimuli Exam/Review of Systems Vital Signs Vitals Vital Signs Date Time Temp Pulse Resp B/P Pulse Ox O2 Delivery O2 Flow Rate FiO2 08/27/16 08:45 78 23 99/66 100 08/27/16 08:00 98.8 Mechanical Ventilator 08/27/16 05:17 30 Intake and Output 1/908/26/16 08/27/16 15:00 23:00 07:00 Intake Total 956.25 ml 1775.62 ml 992.5 ml Output Total 750 ml 555 ml 520 ml Balance 206.25 ml 1220.62 ml 472.5 ml Exam General: The patient is cachectic, minimal response to verbal stimuli HEENT: Atraumatic, normocephalic. The pupils are symmetric, decubitus ulcer on the right ear Neck: Tracheostomy in place Chest: Normal Lungs: Decreased breath sounds bilateral lower lung field Heart: Normal S1-S2, Regular rhythm and rate. Abdomen: Soft , nontender, nondistended , bowel sounds are present. PEG tube in place Extremities: Severe muscle atrophy, decubitus ulcer bilateral lower extremity, flaccid Neurologic: Minimal response to pain or verbal stimuli Results Result Diagram: 08/27/16 0435 08/27/16 0430 Results 24 hrs Laboratory Tests Test 08/26/16 12:27 08/26/16 17:00 08/26/16 21:10 08/27/16 01:51 Bedside Glucose 165 158 145 110 Test 08/27/16 04:30 08/27/16 04:35 08/27/16 05:46 08/27/16 07:00 Anion Gap 18 H Blood Urea Nitrogen 121 H Calcium Level 8.1 L Carbon Dioxide Level 18 L Chloride Level 125 H Creatinine 2.39 H Glucose Level 87 # Potassium Level 3.8 Sodium Level 157 H Basophils # 0.0 Basophils % 0.0 Blood Morphology Comment Eosinophils # 0.4 Eosinophils % 3.8 Hematocrit 21.6 L Hemoglobin 7.2 L Lactic Acid Level 1.0 Lymphocytes # 0.3 L Lymphocytes % 3.2 L Mean Corpuscular Hemoglobin 28.1 L Mean Corpuscular Hemoglobin Concent 33.2 Mean Corpuscular Volume 84.7 Mean Platelet Volume 12.8 H Monocytes # 0.3 Monocytes % 2.7 Neutrophils # 9.1 H Neutrophils % 90.3 H Nucleated Red Blood Cells # 0.0 Nucleated Red Blood Cells % 0.0 Platelet Count 154 Red Blood Count 2.55 L Red Cell Distribution Width 17.4 H White Blood Count 10.1 Bedside Glucose 105 Arterial Blood HCO3 16.1 L Arterial Blood Base Excess -8.3 L Arterial Blood Oxygen Saturation 96.4 Pedro Test ACCEPTAB Arterial Blood Gas Puncture Site Right Radial Arterial Blood Carboxyhemoglobin 0.3 Arterial Blood Date Drawn 08/27/2016 7:20:12 AM Arterial Blood Methemoglobin 0.2 Arterial Blood pCO2 (Temp correct) 28.9 L Arterial Blood pH (Temp corrected) 7.364 Arterial Blood pO2 (Temp corrected) 101.8 H Blood Gas A-a O2 Differential 78.1 H Blood Gas Actual Respiration Rate 18 Blood Gas Low PEEP Setting 5.0 Blood Gas Modality VENT - AC Blood Gas Notified Time 08/27/2016 8:21:52 AM Blood Gas Notified Whom JLD Blood Gas Respiration Rate 16.0 Blood Gas Specimen Source Blood arterial Blood Gas Temperature 37.0 Blood Gas Tidal Volume 550.0 FiO2 30.0 Oxyhemoglobin Percent 95.9 Total Hemoglobin 7.8 L Medications Medications Current Medications Ondansetron HCl (Zofran Inj) 4 mg Q6H PRN IV NAUSEA AND/OR VOMITING; Start 08/23 at 23:00 Morphine Sulfate (morphine) 2 mg Q4H PRN IV SEVERE PAIN LEVEL 7-10 Last administered on 08/24/16 23:58; Admin Dose 2 MG; Start 08/23/16 at 23:00 Acetaminophen (Tylenol Tab) 650 mg Q4H PRN GTB MILD PAIN LEVEL 1-3 Last administered on 08/24/16 16:15; Admin Dose 650 MG; Start 08/23/16 at 23:00 Amiodarone HCl (Cordarone) 200 mg DAILY GTB Last administered on 08/26/16 08:32 ; Admin Dose 200 MG; Start 08/24/16 at 09:00 Ascorbic Acid (Vitamin C) 500 mg DAILY GTB Last administered on 08/26/16 08:31 ; Admin Dose 500 MG; Start 08/24/16 at 09:00 Bisacodyl (Dulcolax Supp) 10 mg Q24H PRN [place] PRN; Start 08/23/16 at 23:00 Chlorhexidine Gluconate (Peridex) 15 ml Q12 MM Last administered on 08/26/16 21 :08; Admin Dose 15 ML; Start 08/24/16 at 09:00 Cholecalciferol (Vitamin D) 1,000 unit DAILY GTB Last administered on 08/26/16 08:31; Admin Dose 1,000 UNIT; Start 08/24/16 at 09:00 Eye Lubricant (Artificial Tears Oph) 2 drop BID BOTH EYES Last administered on 08/26/16 21:33; Admin Dose 2 DROP; Start 08/24/16 at 09:00 Simethicone (Mylicon) 80 mg Q12 PRN GTB DISTENSION/GAS/BLOATING; Start 08/23/16 at 23:00 Tramadol HCl (Ultram) 50 mg BID GTB Last administered on 08/26/16 21:08; Admin Dose 50 MG; Start 08/24/16 at 09:00 Zinc Sulfate (Zinc Sulfate) 220 mg DAILY GTB Last administered on 08/26/16 08: 26; Admin Dose 220 MG; Start 08/24/16 at 09:00 Lactobacillus Acidoph/Bulgaricus (Floranex) 1 tab DAILY PO Last administered on 08/26/16 08:29; Admin Dose 1 TAB; Start 08/24/16 at 11:00 Multivitamins (Thera-Plus) 5 ml DAILY GTB Last administered on 08/26/16 08:32; Admin Dose 5 ML; Start 08/24/16 at 09:00 Lansoprazole (Prevacid) 30 mg BID@06,18 GTB Last administered on 08/27/16 06: 13; Admin Dose 30 MG; Start 08/24/16 at 06:00 Ferrous Sulfate (Feosol Liquid Cup) 330 mg BID GTB Last administered on 21:08; Admin Dose 330 MG; Start 08/24/16 at 09:00 Docusate Sodium 100 mg 100 mg BID GTB Last administered on 08/26/16 21:08; Admin Dose 100 MG; Start 08/24/16 at 09:00 Norepinephrine/ Dextrose (Levophed/D5W) 500 ml @ 1.87 mls/hr TITRATE IV Last administered on 08/26/16 12:37; Admin Dose 15 MLS/HR; Start 08/24/16 at 03:30 Collagenase (Santyl) 1 applic DAILY TOP Last administered on 08/26/16 08:33; Admin Dose 1 APPLIC; Start 08/24/16 at 03:30 Miscellaneous Information 1 ea NOTE XX ; Start 08/24/16 at 22:00 Glucose (Glutose) 15 gm Q15M PRN PO DECREASED GLUCOSE; Start 08/24/16 at 22:00 Glucose (Glutose) 22.5 gm Q15M PRN PO DECREASED GLUCOSE; Start 08/24/16 at 22:00 Dextrose (D50w Syringe) 25 ml Q15M PRN IV DECREASED GLUCOSE; Start 08/24/16 at 22:00 Dextrose (D50w Syringe) 50 ml Q15M PRN IV DECREASED GLUCOSE; Start 08/24/16 at 22:00 Glucagon (Glucagen) 1 mg Q15M PRN IM DECREASED GLUCOSE; Start 08/24/16 at 22:00 Glucose (Glutose) 15 gm Q15M PRN BUCCAL DECREASED GLUCOSE; Start 08/24/16 at 22: 00 Insulin Aspart (Novolog Insulin Pen) NOVOLOG *MODERATE* ALGORI... Q4 SC Last administered on 08/26/16 21:12; Admin Dose 2 UNIT; Start 08/25/16 at 09:00 Mupirocin 1 applic 1 applic BID TOP Last administered on 08/26/16 21:33; Admin Dose 1 APPLIC; Start 08/25/16 at 21:00; Stop 08/29/16 at 11:00 Cefepime HCl (Maxipime 2gm/50 ml (Pmx)) 50 ml @ 100 mls/hr Q24H IVPB Last administered on 08/26/16 08:32; Admin Dose 100 MLS/HR; Start 08/26/16 at 09:00 Insulin Glargine 12 unit 12 unit QPM SC Last administered on 08/26/16 21:12; Admin Dose 12 UNIT; Start 08/26/16 at 21:00 Vancomycin HCl 750 mg/Sodium Chloride 150 ml @ 75 mls/hr Q24H IVPB Last administered on 08/26/16 12:32; Admin Dose 75 MLS/HR; Start 08/26/16 at 13:00 Sodium Chloride (1/2 NS) 1,000 ml @ 100 mls/hr Q10H IV ; Start 08/27/16 at 13: 30 IAM GÓMEZ MD Aug 27, 2016 09:46
[2016-08-27] MEDS: CEFEPIME 2GM/50 ML (PMX) 50 ML IVPB SCH (09:47)
--- NOTE | 2016-08-27 10:27 | RADRPT ---
PROCEDURE: XR Chest. CLINICAL INDICATION: Pneumonia. Congestive heart failure. TECHNIQUE: Single frontal chest x-ray. COMPARISON: 08/26/2016 FINDINGS: Tracheostomy tube, right arm PICC line in place unchanged. Bibasilar atelectasis is unchanged. The re are no new infiltrates. Skin fold artifacts and wires overlie the left thorax limiting evaluatio n. .. The cardiomediastinal silhouette is unremarkable. The osseous structures are intact. IMPRESSION: Tubes and lines unchanged. Bibasilar atelectasis unchanged.. RPTAT: GG .Tej Marrero MD, Date Time Electronically viewed and signed by .Tej Marrero MD, MD on 08/27/2016 10:26 .L/
--- NOTE | 2016-08-27 11:02 | PN ---
DATE: 08/27/2016 ADDENDUM PALLIATIVE CARE CONSULTATION I had a conversation with patient's durable power of attorney at law for healthcare who states he is the ag ent who, after I brought him up to date with Mr. Robles's current condition, still refused to discus s changing his code status stating that his brother wanted him to be a FULL CODE and do everything t o prolong his life. I did tell the agent, Dr. Marquez, that he has the legal authority to change his c ode status at least to no cardiopulmonary resuscitation. He still refused to do so. I told him that the patient has decubiti starting with his head, bilateral ears, bilateral elbows, knees, ankles an d sacrum which is 12 cm stage IV decubiti. He states he has seen it 3 days ago and is aware of the extent of the decubiti, but still refuses to change his code status. At this point, I told him that we felt as the medical team that this was not consistent with quality end of life care and that Mr. 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 Dictated By: NATALIE LOMELI MD, LP/NTS Conf#: [id number] DID#: [id number]
--- NOTE | 2016-08-27 11:02 | CONS ---
DATE OF ADMISSION: 08/23/2016 DATE OF CONSULTATION: 08/27/2016 TYPE OF CONSULTATION: Palliative care. HISTORY OF PRESENT ILLNESS: This is a 70-year-old gentleman who is well known to me from prior hosp italization with a history of chronic encephalopathy. He is a resident of a senior care unit wh o was sent back to [facility] septic. This gentleman is chronically PEG'd, trache d. Urinary tract infection is presumed to be the source of his underlying sepsis during this hospita lization. He has been admitted to the ICU. Close attention and aggressive care have been paid attent ion to for his fluid and electrolyte abnormalities, acute on chronic kidney disease. DVT prophylaxi s has begun with close attention to other metabolic parameters. He has been seen by Infectious Dise ase, nephrology consultation and pulmonary medicine. He has been transferred back from the senior care unit with a combination of bilateral lower extremity heel ulcers, a huge 20 x 20 stage IV ul cer on his sacrum, bilateral stage II decubiti of both elbows, bilateral decubiti of both ears -- un stageable at this time and a stage II/III decubiti of his left and right side of his skull. la hospitalization, his agent at that time refused to change his code status to at least a DO NOT RE SUSCITATE. I am asked to get involved once again and to speak to a family member. MEDICATIONS: Please refer to reconciliation sheet. ALLERGIES: NO KNOWN DRUG ALLERGIES. MAJOR MEDICAL PROBLEMS IN THE PAST: Pertinent to this consultation entirely per History of Present Illness. SOCIAL HISTORY: He lives in a senior care unit. That is all we know at this time. FAMILY HISTORY: Unknown. REVIEW OF SYSTEMS: Cannot be obtained. PHYSICAL EXAMINATION: GENERAL: Shows a noncommunicative male who is PEG'd, trached. HEENT: On examination, he has a head bandage on. CHEST: ____ distant difficult to hear breath sounds throughout both lung martinez. COR: Regular rate and rhythm on examination. NEUROLOGIC EXAMINATION: He is oriented x0, nonresponsive to any verbal stimulation, on tactile, he is opening and closing his eyes but not doing any purposeful activity. He has roving bilateral eye movements. LABORATORIES: Tests have been reviewed. ASSESSMENT AND PLAN: This is an unfortunate 70-year-old gentleman whose family members refuse to ch lori his code status. At this time, he is debilitated. He has multiple stage IV wounds as well as unstageable wounds in multiple different areas, please refer to my History of Present Illness, as we ll as recurrent admissions for sepsis syndrome. He is debilitated, suffering and deserves better en d of life goals of care. I will assist after Dr. Mao and Dr. Proctor once again and will try and speak to the patient's agent who is a physician and ask him either to come up to the hospital an d change his code status and we will call a bioethics consultation. Dictated By: NATALIE LOMELI MD, LP/NTS Conf#: [id number] DID#: [id number]
--- NOTE | 2016-08-27 11:05 | CONS ---
Date/Time of Note Date/Time of Note DATE: 08/27/16 TIME: 11:04 Consult Date/Type/Reason Admit Date/Time Aug 23, 2016 at 22:10 Type of Consultation: pulmonary Subjective Continues levo fed Remains mostly altered Not opening eyes consistently following commands Continues mechanical ventilation G-tube leak noted colostomy bag in place Objective Vital Signs Date Time Temp Pulse Resp B/P Pulse Ox O2 Delivery O2 Flow Rate FiO2 08/27/16 10:30 78 21 98/56 100 08/27/16 10:00 Mechanical Ventilator 08/27/16 08:00 98.8 08/27/16 05:17 30 Intake and Output 08/26/16 08/26/16 08/27/16 15:00 23:00 07:00 Intake Total 956.25 ml 1775.62 ml 992.5 ml Output Total 750 ml 555 ml 520 ml Balance 206.25 ml 1220.62 ml 472.5 ml PHYSICAL EXAMINATION GENERAL: Elderly gentleman, chronically ill-appearing on mechanical ventilation VITAL SIGNS: see below. HEENT: Pupils equal, round, and reactive to light. Tracheostomy site clean and intact. CARDIAC: S1, S2, tachycardia. CHEST: Diminished air entry bilaterally. ABDOMEN: Mildly distended. Decreased bowel sounds. EXTREMITIES: No cyanosis, clubbing edema +1. NEUROLOGIC: Generalized weakness unable to assess Results/Medications Result Diagram: 08/27/16 0435 08/27/16 0430 Results 24 hrs Laboratory Tests Test 08/26/16 12:27 08/26/16 17:00 08/26/16 21:10 08/27/16 01:51 Bedside Glucose 165 158 145 110 Test 08/27/16 04:30 08/27/16 04:35 08/27/16 05:46 08/27/16 07:00 Anion Gap 18 H Blood Urea Nitrogen 121 H Calcium Level 8.1 L Carbon Dioxide Level 18 L Chloride Level 125 H Creatinine 2.39 H Glucose Level 87 # Potassium Level 3.8 Sodium Level 157 H Basophils # 0.0 Basophils % 0.0 Blood Morphology Comment Eosinophils # 0.4 Eosinophils % 3.8 Hematocrit 21.6 L Hemoglobin 7.2 L Lactic Acid Level 1.0 Lymphocytes # 0.3 L Lymphocytes % 3.2 L Mean Corpuscular Hemoglobin 28.1 L Mean Corpuscular Hemoglobin Concent 33.2 Mean Corpuscular Volume 84.7 Mean Platelet Volume 12.8 H Monocytes # 0.3 Monocytes % 2.7 Neutrophils # 9.1 H Neutrophils % 90.3 H Nucleated Red Blood Cells # 0.0 Nucleated Red Blood Cells % 0.0 Platelet Count 154 Red Blood Count 2.55 L Red Cell Distribution Width 17.4 H White Blood Count 10.1 Bedside Glucose 105 Arterial Blood HCO3 16.1 L Arterial Blood Base Excess -8.3 L Arterial Blood Oxygen Saturation 96.4 Pedro Test ACCEPTAB Arterial Blood Gas Puncture Site Right Radial Arterial Blood Carboxyhemoglobin 0.3 Arterial Blood Date Drawn 08/27/2016 7:20:12 AM Arterial Blood Methemoglobin 0.2 Arterial Blood pCO2 (Temp correct) 28.9 L Arterial Blood pH (Temp corrected) 7.364 Arterial Blood pO2 (Temp corrected) 101.8 H Blood Gas A-a O2 Differential 78.1 H Blood Gas Actual Respiration Rate 18 Blood Gas Low PEEP Setting 5.0 Blood Gas Modality VENT - AC Blood Gas Notified Time 08/27/2016 8:21:52 AM Blood Gas Notified Whom JLD Blood Gas Respiration Rate 16.0 Blood Gas Specimen Source Blood arterial Blood Gas Temperature 37.0 Blood Gas Tidal Volume 550.0 FiO2 30.0 Oxyhemoglobin Percent 95.9 Total Hemoglobin 7.8 L Test 08/27/16 09:39 Bedside Glucose 96 Medications Current Medications Ondansetron HCl (Zofran Inj) 4 mg Q6H PRN IV NAUSEA AND/OR VOMITING; Start 08/23 at 23:00 Morphine Sulfate (morphine) 2 mg Q4H PRN IV SEVERE PAIN LEVEL 7-10 Last administered on 08/24/16 23:58; Admin Dose 2 MG; Start 08/23/16 at 23:00 Acetaminophen (Tylenol Tab) 650 mg Q4H PRN GTB MILD PAIN LEVEL 1-3 Last administered on 08/24/16 16:15; Admin Dose 650 MG; Start 08/23/16 at 23:00 Amiodarone HCl (Cordarone) 200 mg DAILY GTB Last administered on 08/27/16 09: 40; Admin Dose 200 MG; Start 08/24/16 at 09:00 Ascorbic Acid (Vitamin C) 500 mg DAILY GTB Last administered on 08/27/16 09:39 ; Admin Dose 500 MG; Start 08/24/16 at 09:00 Bisacodyl (Dulcolax Supp) 10 mg Q24H PRN NV PRN; Start 08/23/16 at 23:00 Chlorhexidine Gluconate (Peridex) 15 ml Q12 MM Last administered on 08/27/16 09:39; Admin Dose 15 ML; Start 08/24/16 at 09:00 Cholecalciferol (Vitamin D) 1,000 unit DAILY GTB Last administered on 09:40; Admin Dose 1,000 UNIT; Start 08/24/16 at 09:00 Eye Lubricant (Artificial Tears Oph) 2 drop BID BOTH EYES Last administered on 08/27/16 09:42; Admin Dose 2 DROP; Start 08/24/16 at 09:00 Simethicone (Mylicon) 80 mg Q12 PRN GTB DISTENSION/GAS/BLOATING; Start 08/23/16 at 23:00 Tramadol HCl (Ultram) 50 mg BID GTB Last administered on 08/27/16 09:40; Admin Dose 50 MG; Start 08/24/16 at 09:00 Zinc Sulfate (Zinc Sulfate) 220 mg DAILY GTB Last administered on 08/27/16 09: 39; Admin Dose 220 MG; Start 08/24/16 at 09:00 Lactobacillus Acidoph/Bulgaricus (Floranex) 1 tab DAILY PO Last administered on 08/27/16 09:39; Admin Dose 1 TAB; Start 08/24/16 at 11:00 Multivitamins (Thera-Plus) 5 ml DAILY GTB Last administered on 08/27/16 09:39 ; Admin Dose 5 ML; Start 08/24/16 at 09:00 Lansoprazole (Prevacid) 30 mg BID@06,18 GTB Last administered on 08/27/16 06: 13; Admin Dose 30 MG; Start 08/24/16 at 06:00 Ferrous Sulfate (Feosol Liquid Cup) 330 mg BID GTB Last administered on 09:39; Admin Dose 330 MG; Start 08/24/16 at 09:00 Docusate Sodium 100 mg 100 mg BID GTB Last administered on 08/27/16 09:39; Admin Dose 100 MG; Start 08/24/16 at 09:00 Norepinephrine/ Dextrose (Levophed/D5W) 500 ml @ 1.87 mls/hr TITRATE IV Last administered on 08/26/16 12:37; Admin Dose 15 MLS/HR; Start 08/24/16 at 03:30 Collagenase (Santyl) 1 applic DAILY TOP Last administered on 08/27/16 09:41; Admin Dose 1 APPLIC; Start 08/24/16 at 03:30 Miscellaneous Information 1 ea NOTE XX ; Start 08/24/16 at 22:00 Glucose (Glutose) 15 gm Q15M PRN PO DECREASED GLUCOSE; Start 08/24/16 at 22:00 Glucose (Glutose) 22.5 gm Q15M PRN PO DECREASED GLUCOSE; Start 08/24/16 at 22:00 Dextrose (D50w Syringe) 25 ml Q15M PRN IV DECREASED GLUCOSE; Start 08/24/16 at 22:00 Dextrose (D50w Syringe) 50 ml Q15M PRN IV DECREASED GLUCOSE; Start 08/24/16 at 22:00 Glucagon (Glucagen) 1 mg Q15M PRN IM DECREASED GLUCOSE; Start 08/24/16 at 22:00 Glucose (Glutose) 15 gm Q15M PRN BUCCAL DECREASED GLUCOSE; Start 08/24/16 at 22: 00 Insulin Aspart (Novolog Insulin Pen) NOVOLOG *MODERATE* ALGORI... Q4 SC Last administered on 08/26/16 21:12; Admin Dose 2 UNIT; Start 08/25/16 at 09:00 Mupirocin 1 applic 1 applic BID TOP Last administered on 08/27/16 09:41; Admin Dose 1 APPLIC; Start 08/25/16 at 21:00; Stop 08/29/16 at 11:00 Cefepime HCl 50 ml @ 100 mls/hr Q24H IVPB Last administered on 08/27/16 09:47 ; Admin Dose 100 MLS/HR; Start 08/26/16 at 09:00 Vancomycin HCl 750 mg/Sodium Chloride 150 ml @ 75 mls/hr Q24H IVPB Last administered on 08/26/16 12:32; Admin Dose 75 MLS/HR; Start 08/26/16 at 13:00 Sodium Chloride (1/2 NS) 1,000 ml @ 100 mls/hr Q10H IV ; Start 08/27/16 at 13: 30 Insulin Glargine (Lantus) 10 unit QPM SC ; Start 08/27/16 at 21:00 Assessment/Plan Chief Complaint/Hosp Course IMPRESSION: 1. Shock-hypovolemic/septic--due to likely cath-related BSI 2. Urinary tract infection with septic shock 3. Acute kidney injury, likely due to hypovolemia and prerenal causes. Hypernatremia 4. Transaminitis, likely due to ischemic hepatopathy. 5. Troponin leak, possibly likely due to demand ischemia. 6. Possible ventilator-associated pneumonia versus aspiration. 7. Chronic encephalopathy. RECOMMENDATIONS: 1. Broad spectrum antibiotics as initiated. 2. Ventilatory support with plans to lower FIO2 as tolerated. 3. Place new PICC line 4. Decrease vasopressors as tolerated 5. Transfusion 1 unit packed red blood cells 6. Renal recommendations consider free water. Overall prognosis remains guarded Problems: NICK BALLARD MD, [facility] Aug 27, 2016 11:05
[2016-08-27] MEDS: SOD CHLORIDE 0.45% 1,000 ML IV SCH ×2 (13:35→22:03)
[2016-08-27] MEDS: VANCOMYCIN 750 MG in SOD CHLORIDE 0.9% 150 ML IVPB SCH (13:35)
--- NOTE | 2016-08-27 13:35 | PN ---
DATE: 08/27/2016 SUBJECTIVE: No events overnight. The patient remains noncommunicative. Levophed drip is off since this morning. He is in no distress. No fevers. Temperature 98.9, pulse 79, respirations 20, blood pressure 98/56, saturation 100 on vent. WBC 10.1, H and H 7.2 and 21.6, platelets 154, neutrophils 90.3, BUN 121, creatinine 2.39. MICROBIOLOGY: Blood culture growing MRSA and nares swab growing MRSA. Sputum culture pending. Sac ral wound growing enterococcus species and gram-negative rods. DIAGNOSTICS: Chest x-ray this morning revealed bibasilar atelectasis, unchanged. INDWELLINGS: Trach, PEG, Lopez, right upper extremity PICC line present on admission and supposedly placed back in July. ANTIMICROBIALS: 1. Vancomycin. 2. Cefepime. 3. Topical Bactroban to nares. PHYSICAL EXAMINATION: GENERAL: Chronically ill-appearing, elderly man who is nonverbal, noncommunicative. The patient is in no distress. HEENT: Head atraumatic, normocephalic. Sclerae anicteric. Buccal mucosa dry. NECK: Supple. Tracheostomy present. CHEST: Rise symmetrical. Breath sounds diminished to bases. HEART: S1, S2. ABDOMEN: Soft. Bowel tones hypoactive. EXTREMITIES: With bilateral trace edema. ASSESSMENT: 1. Severe sepsis with shock, off pressors. 2. Methicillin-resistant Staphylococcus aureus septicemia, possibly secondary to infected periphera lly inserted central catheter line. 3. Multiple unstageable decubitus with a sacral wound that looks infected, pending final cultures. 4. Methicillin-resistant Staphylococcus aureus nares colonization. 5. Acute renal failure. 6. Healthcare-associated pneumonia. 7. Anemia. PLAN: The patient remains stable off pressors. Pending PICC line discontinuation. He is on approp riate antimicrobials. He is also on topical Bactroban to nares and Hibiclens baths daily, pending r epeat blood cultures. We will order a 2D echo if it has not been done yet. Dictated By: CHRISS RIVAS RN SURGERY ICU for BETHANY CASTILLO/LESLY Conf#: [id number] DID#: [id number]
--- NOTE | 2016-08-27 16:45 | CONS ---
Date/Time of Note Date/Time of Note DATE: 08/27/16 TIME: 16:44 Assessment/Plan Assessment/Plan Chief Complaint/Hosp Course 1. Acute hypernatremia better 2. Acute kidney injury on chronic kidney disease secondary to previous ischemic acute tubular necrosis from severe prerenal azotemia. 3. Severe prerenal azotemia 4. Sepsis secondary to urinary tract infection. 5. History of recent admission. 6. 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 7. Chronic respiratory failure, status post tracheostomy and status post PEG tube placement. plan iv fluid 0.45 saline Problems: Consultation Date/Type/Reason Admit Date/Time Aug 23, 2016 at 22:10 Type of Consultation: renal 24 HR Interval Summary Subjective hx not possible: pt non-verbal Exam/Review of Systems Vital Signs Vitals Vital Signs Date Time Temp Pulse Resp B/P Pulse Ox O2 Delivery O2 Flow Rate FiO2 08/27/16 16:00 72 08/27/16 13:50 20 100 30 08/27/16 13:30 115/78 08/27/16 13:00 Mechanical Ventilator 08/27/16 12:00 98.8 Intake and Output 08/26/16 08/26/16 08/27/16 15:00 23:00 07:00 Intake Total 956.25 ml 1775.62 ml 992.5 ml Output Total 750 ml 555 ml 520 ml Balance 206.25 ml 1220.62 ml 472.5 ml Exam Respiratory: diminished breath sounds Cardiovascular: regular rate and rhythm Gastrointestinal: bowel sounds, soft Genitourinary - Male: nl scrotum Musculoskeletal: nl extremities to inspection Results Result Diagram: 08/27/16 0435 08/27/16 0430 Results 24 hrs Laboratory Tests Test 08/26/16 17:00 08/26/16 21:10 08/27/16 01:51 08/27/16 04:30 Bedside Glucose 158 145 110 Anion Gap 18 H Blood Urea Nitrogen 121 H Calcium Level 8.1 L Carbon Dioxide Level 18 L Chloride Level 125 H Creatinine 2.39 H Glucose Level 87 # Potassium Level 3.8 Sodium Level 157 H Test 08/27/16 04:35 08/27/16 05:46 08/27/16 07:00 08/27/16 09:39 Basophils # 0.0 Basophils % 0.0 Blood Morphology Comment Eosinophils # 0.4 Eosinophils % 3.8 Hematocrit 21.6 L Hemoglobin 7.2 L Lactic Acid Level 1.0 Lymphocytes # 0.3 L Lymphocytes % 3.2 L Mean Corpuscular Hemoglobin 28.1 L Mean Corpuscular Hemoglobin Concent 33.2 Mean Corpuscular Volume 84.7 Mean Platelet Volume 12.8 H Monocytes # 0.3 Monocytes % 2.7 Neutrophils # 9.1 H Neutrophils % 90.3 H Nucleated Red Blood Cells # 0.0 Nucleated Red Blood Cells % 0.0 Platelet Count 154 Red Blood Count 2.55 L Red Cell Distribution Width 17.4 H White Blood Count 10.1 Bedside Glucose 105 96 Arterial Blood HCO3 16.1 L Arterial Blood Base Excess -8.3 L Arterial Blood Oxygen Saturation 96.4 Pedro Test ACCEPTAB Arterial Blood Gas Puncture Site Right Radial Arterial Blood Carboxyhemoglobin 0.3 Arterial Blood Date Drawn 08/27/2016 7:20:12 AM Arterial Blood Methemoglobin 0.2 Arterial Blood pCO2 (Temp correct) 28.9 L Arterial Blood pH (Temp corrected) 7.364 Arterial Blood pO2 (Temp corrected) 101.8 H Blood Gas A-a O2 Differential 78.1 H Blood Gas Actual Respiration Rate 18 Blood Gas Low PEEP Setting 5.0 Blood Gas Modality VENT - AC Blood Gas Notified Time 08/27/2016 8:21:52 AM Blood Gas Notified Whom JLD Blood Gas Respiration Rate 16.0 Blood Gas Specimen Source Blood arterial Blood Gas Temperature 37.0 Blood Gas Tidal Volume 550.0 FiO2 30.0 Oxyhemoglobin Percent 95.9 Total Hemoglobin 7.8 L Test 08/27/16 13:37 Bedside Glucose 111 Medications Medications Current Medications Ondansetron HCl (Zofran Inj) 4 mg Q6H PRN IV NAUSEA AND/OR VOMITING; Start 08/23 at 23:00 Morphine Sulfate (morphine) 2 mg Q4H PRN IV SEVERE PAIN LEVEL 7-10 Last administered on 08/24/16 23:58; Admin Dose 2 MG; Start 08/23/16 at 23:00 Acetaminophen (Tylenol Tab) 650 mg Q4H PRN GTB MILD PAIN LEVEL 1-3 Last administered on 08/24/16 16:15; Admin Dose 650 MG; Start 08/23/16 at 23:00 Amiodarone HCl (Cordarone) 200 mg DAILY GTB Last administered on 08/27/16 09: 40; Admin Dose 200 MG; Start 08/24/16 at 09:00 Ascorbic Acid (Vitamin C) 500 mg DAILY GTB Last administered on 08/27/16 09:39 ; Admin Dose 500 MG; Start 08/24/16 at 09:00 Bisacodyl (Dulcolax Supp) 10 mg Q24H PRN PA PRN; Start 08/23/16 at 23:00 Chlorhexidine Gluconate (Peridex) 15 ml Q12 MM Last administered on 08/27/16 09:39; Admin Dose 15 ML; Start 08/24/16 at 09:00 Cholecalciferol (Vitamin D) 1,000 unit DAILY GTB Last administered on 09:40; Admin Dose 1,000 UNIT; Start 08/24/16 at 09:00 Eye Lubricant (Artificial Tears Oph) 2 drop BID BOTH EYES Last administered on 08/27/16 09:42; Admin Dose 2 DROP; Start 08/24/16 at 09:00 Simethicone (Mylicon) 80 mg Q12 PRN GTB DISTENSION/GAS/BLOATING; Start 08/23/16 at 23:00 Tramadol HCl (Ultram) 50 mg BID GTB Last administered on 08/27/16 09:40; Admin Dose 50 MG; Start 08/24/16 at 09:00 Zinc Sulfate (Zinc Sulfate) 220 mg DAILY GTB Last administered on 08/27/16 09: 39; Admin Dose 220 MG; Start 08/24/16 at 09:00 Lactobacillus Acidoph/Bulgaricus (Floranex) 1 tab DAILY PO Last administered on 08/27/16 09:39; Admin Dose 1 TAB; Start 08/24/16 at 11:00 Multivitamins (Thera-Plus) 5 ml DAILY GTB Last administered on 08/27/16 09:39 ; Admin Dose 5 ML; Start 08/24/16 at 09:00 Lansoprazole (Prevacid) 30 mg BID@,18 GTB Last administered on 08/27/16 06: 13; Admin Dose 30 MG; Start 08/24/16 at 06:00 Ferrous Sulfate (Feosol Liquid Cup) 330 mg BID GTB Last administered on 09:39; Admin Dose 330 MG; Start 08/24/16 at 09:00 Docusate Sodium 100 mg 100 mg BID GTB Last administered on 08/27/16 09:39; Admin Dose 100 MG; Start 08/24/16 at 09:00 Norepinephrine/ Dextrose (Levophed/D5W) 500 ml @ 1.87 mls/hr TITRATE IV Last administered on 08/26/16 12:37; Admin Dose 15 MLS/HR; Start 08/24/16 at 03:30 Collagenase (Santyl) 1 applic DAILY TOP Last administered on 08/27/16 09:41; Admin Dose 1 APPLIC; Start 08/24/16 at 03:30 Miscellaneous Information 1 ea NOTE XX ; Start 08/24/16 at 22:00 Glucose (Glutose) 15 gm Q15M PRN PO DECREASED GLUCOSE; Start 08/24/16 at 22:00 Glucose (Glutose) 22.5 gm Q15M PRN PO DECREASED GLUCOSE; Start 08/24/16 at 22:00 Dextrose (D50w Syringe) 25 ml Q15M PRN IV DECREASED GLUCOSE; Start 08/24/16 at 22:00 Dextrose (D50w Syringe) 50 ml Q15M PRN IV DECREASED GLUCOSE; Start 08/24/16 at 22:00 Glucagon (Glucagen) 1 mg Q15M PRN IM DECREASED GLUCOSE; Start 08/24/16 at 22:00 Glucose (Glutose) 15 gm Q15M PRN BUCCAL DECREASED GLUCOSE; Start 08/24/16 at 22: 00 Insulin Aspart (Novolog Insulin Pen) NOVOLOG *MODERATE* ALGORI... Q4 SC Last administered on 08/26/16 21:12; Admin Dose 2 UNIT; Start 08/25/16 at 09:00 Mupirocin 1 applic 1 applic BID TOP Last administered on 08/27/16 09:41; Admin Dose 1 APPLIC; Start 08/25/16 at 21:00; Stop 08/29/16 at 11:00 Cefepime HCl 50 ml @ 100 mls/hr Q24H IVPB Last administered on 08/27/16 09:47 ; Admin Dose 100 MLS/HR; Start 08/26/16 at 09:00 Vancomycin HCl 750 mg/Sodium Chloride 150 ml @ 75 mls/hr Q24H IVPB Last administered on 08/27/16 13:35; Admin Dose 75 MLS/HR; Start 08/26/16 at 13:00 Sodium Chloride (1/2 NS) 1,000 ml @ 100 mls/hr Q10H IV Last administered on t 13:35; Admin Dose 100 MLS/HR; Start 08/27/16 at 13:30 Insulin Glargine (Lantus) 10 unit QPM SC ; Start 08/27/16 at 21:00 Miscellaneous Information (*Rx Drug Level Order Reminder*) VANCO TROUGH @ 1, 200 ON... ONCE ONCE XX ; Start 08/28/16 at 12:00; Stop 08/28/16 at 12:01 PATRICIO ELIZALDE MD Aug 27, 2016 16:44
[2016-08-27] MEDS: INSULIN GLARGINE [LANtus] 3 ML PEN SC SCH (21:00)
[2016-08-28] VITALS (71 sets, daily range): BP systolic 102–160; BP diastolic 65–87; PULSE 65–79; RESP 16–24
[2016-08-28] MEDS: INSULIN ASPART [NOVOLOG] 3 ML PEN SC SCH ×6 (01:00→20:59)
[2016-08-28] MEDS: LANSOPRAZOLE 30 MG CAP GTB SCH ×2 (05:17→18:27)
[2016-08-28 05:34] LABS: BASOPHILS % 0.1 % (0.0-2.0); EOSINOPHILS # 0.2 10^3/ul (0.0-0.5); EOSINOPHILS % 2.7 % (0.0-7.0); HEMATOCRIT 20.2 % (42.0-52.0); LYMPHOCYTES # 0.2 10^3/ul (0.8-2.9); LYMPHOCYTES % 2.7 % (15.0-51.0); MEAN CORPUSCULAR HEMOGLOBIN 28.9 pg (29.0-33.0); MEAN CORPUSCULAR HGB CONC 34.1 g/dl (32.0-37.0); MEAN CORPUSCULAR VOLUME 84.8 fl (82.0-101.0); MEAN PLATELET VOLUME 13.4 fl (7.4-10.4); MONOCYTE # 0.3 10^3/ul (0.3-0.9); MONOCYTES % 3.5 % (0.0-11.0); NEUTROPHIL # 7.5 10^3/ul (1.6-7.5); PLATELET COUNT 126 10^3/UL (140-440); RED BLOOD COUNT 2.38 10^6/ul (4.70-6.10); RED CELL DISTRIBUTION WIDTH 17.3 % (11.5-14.5); UNCORRECTED WBC 8.2 10^3/ul (4.8-10.8); WHITE BLOOD COUNT 8.2 10^3/ul (4.8-10.8)
[2016-08-28 05:51] LABS: CREATININE 1.71 mg/dl (0.61-1.24)
[2016-08-28 05:52] LABS: CALCIUM 6.7 mg/dl (8.4-10.2)
[2016-08-28 06:03] LABS: CONDITION 1; HEMOGLOBIN 6.9 g/dl (14.0-18.0); LH ANALYZER COMMENTS 1; SUSPECT 1
[2016-08-28 06:11] LABS: POTASSIUM 2.9 mmol/L (3.5-5.1)
[2016-08-28] MEDS: LACTOBACILLUS CHEW TAB PO SCH (08:34)
[2016-08-28] MEDS: MULTIVITAMINS 5 ML CUP GTB SCH (08:34)
[2016-08-28] MEDS: ASCORBIC ACID 500 MG TAB GTB SCH (08:34)
[2016-08-28] MEDS: traMADol 50 MG TAB GTB SCH ×2 (08:35→20:59)
[2016-08-28] MEDS: ZINC SULFATE 220 MG CAP GTB SCH (08:35)
[2016-08-28] MEDS: CHOLECALCIFEROL 1,000 UNIT TAB GTB SCH (08:35)
[2016-08-28] MEDS: AMIODARONE 200 MG TAB GTB SCH (08:35)
[2016-08-28] MEDS: ARTIFICIAL TEARS 15 ML OPH BOTH EYES SCH ×2 (08:36→20:58)
[2016-08-28] MEDS: SOD CHLORIDE 0.45% 1,000 ML IV SCH (08:36)
[2016-08-28] MEDS: CHLORHEXIDINE GLUCONATE 15 ML UD CUP MM SCH ×2 (08:36→20:58)
[2016-08-28] MEDS: FERROUS SULFATE 60 MG/ML 5ML CUP GTB SCH ×2 (08:36→20:58)
[2016-08-28] MEDS: DOCUSATE SODIUM 10 MG/ML (10ML CUP) GTB SCH ×2 (08:36→20:58)
[2016-08-28] MEDS: CEFEPIME 2GM/50 ML (PMX) 50 ML IVPB SCH (08:43)
[2016-08-28] MEDS: COLLAGENASE 30 GM TUBE TOP SCH (08:43)
[2016-08-28] MEDS: MUPIROCIN 2% 22 GM OINT TOP SCH ×2 (08:44→20:58)
--- NOTE | 2016-08-28 09:52 | PN ---
Date/Time of Note Date/Time of Note DATE: 08/28/16 TIME: 09:44 Assessment/Plan VTE Prophylaxis VTE Prophylaxis Intervention: SCD's Lines/Catheters IV Catheter Type (from Nrsg): PICC Line Central line still needed: Yes Urinary Cath still in place: Yes Reason Cath still needed: other (indicate) Assessment/Plan Chief Complaint/Hosp Course Assessment and plan: 1. Sepsis, likely secondary to urinary tract infection, line sepsis and severe dehydration Continue sepsis protocol, aggressive IV fluid, pressors, broad-spectrum IV antibiotics Infectious disease and builder beam been consulted We will attempt triple lumen central venous catheter insertion today and then remove PICC line 2. Urinary tract infection, Continue broad-spectrum IV antibiotics, follow urine culture and sensitivity 3. Acute renal failure, likely secondary to severe dehydration Continue IV fluids, nephrology has been consulted follow-up renal panel in a.m. 4. Severe hypernatremia, likely secondary to severe dehydration, improving Continue D5W, free water through PEG tube, follow-up renal panel and electrolytes in a.m. Nephrology has been consulted 5. Hypokalemia, Repleted 6. Transaminitis, Likely secondary to severe dehydration, caution with hepatotoxic medication Follow-up liver function tests in a.m. 7. Diabetic mellitus, better controlled Continue insulin sliding scale, continue Lantus, restart diabeticsource 8. Sacral decubitus, with evidence of lower extremity decubitus as well Wound care consulted 9. Anemia, Continue iron supplementations, will transfuse PRBC if hemoglobin is less than 7.5 Plan to transfuse 1 unit packed red blood cell Follow-up CBC in a.m. 10. PEG tube dysfunction, will obtain GI consultation 11. Feeding, at this time will hold tube feeding secondary to PEG tube dysfunction Condition: Guarded We will continue monitor patient closely for recommendation management treatment as clinical course Problems: Subjective 24 Hr Interval Summary Free Text/Dictation No acute changes Patient remains on pressors, Levophed 3 Carroll Minimal response to pain or verbal stimuli Exam/Review of Systems Vital Signs Vitals Vital Signs Date Time Temp Pulse Resp B/P Pulse Ox O2 Delivery O2 Flow Rate FiO2 08/28/16 09:30 65 19 109/75 100 Venturi Mask 08/28/16 08:12 30 08/28/16 08:00 98.4 Intake and Output 08/27/16 08/27/16 08/28/16 15:00 23:00 07:00 Intake Total 1100.61 ml 316.86 ml 150 ml Output Total 560 ml 690 ml 570 ml Balance 540.61 ml -373.14 ml -420 ml Exam General: The patient is cachectic HEENT: Atraumatic, normocephalic. The pupils are symmetric Neck: Tracheostomy in place Chest: Normal Lungs: Decreased breath sounds bilateral lower lung field Heart: Normal S1-S2, Regular rhythm and rate. Abdomen: Soft , nontender, nondistended , bowel sounds are present. PEG tube in place Extremities: Trace edema , no cyanosis, stage III sacral decubitus, decubitus ulcer bilateral lower extremity Neurologic: Minimal response to pain stimuli Results Result Diagram: 08/28/16 0450 08/28/16 0450 Results 24 hrs Laboratory Tests Test 08/27/16 13:37 08/27/16 18:25 08/27/16 20:45 08/28/16 04:50 Bedside Glucose 111 106 108 Anion Gap 16 Basophils # 0.0 Basophils % 0.1 Blood Morphology Comment Blood Urea Nitrogen 95 H Calcium Level 6.7 L Carbon Dioxide Level 14 L Chloride Level 117 H Creatinine 1.71 H Eosinophils # 0.2 Eosinophils % 2.7 Glucose Level 115 Hematocrit 20.2 L Hemoglobin 6.9 *L Lymphocytes # 0.2 L Lymphocytes % 2.7 L Mean Corpuscular Hemoglobin 28.9 L Mean Corpuscular Hemoglobin Concent 34.1 Mean Corpuscular Volume 84.8 Mean Platelet Volume 13.4 H Monocytes # 0.3 Monocytes % 3.5 Neutrophils # 7.5 Neutrophils % 91.0 H Nucleated Red Blood Cells # 0.0 Nucleated Red Blood Cells % 0.0 Platelet Count 126 L Potassium Level 2.9 *L Red Blood Count 2.38 L Red Cell Distribution Width 17.3 H Sodium Level 144 White Blood Count 8.2 Test 08/28/16 05:16 Bedside Glucose 125 Medications Medications Current Medications Ondansetron HCl (Zofran Inj) 4 mg Q6H PRN IV NAUSEA AND/OR VOMITING; Start 08/23 at 23:00 Morphine Sulfate (morphine) 2 mg Q4H PRN IV SEVERE PAIN LEVEL 7-10 Last administered on 08/24/16t 23:58; Admin Dose 2 MG; Start 08/23/16 at 23:00 Acetaminophen (Tylenol Tab) 650 mg Q4H PRN GTB MILD PAIN LEVEL 1-3 Last administered on 08/24/16 16:15; Admin Dose 650 MG; Start 08/23/16 at 23:00 Amiodarone HCl (Cordarone) 200 mg DAILY GTB Last administered on 08/28/16 08: 35; Admin Dose 200 MG; Start 08/24/16 at 09:00 Ascorbic Acid (Vitamin C) 500 mg DAILY GTB Last administered on 08/28/16 08:34 ; Admin Dose 500 MG; Start 08/24/16 at 09:00 Bisacodyl (Dulcolax Supp) 10 mg Q24H PRN [place] PRN; Start 08/23/16 at 23:00 Chlorhexidine Gluconate (Peridex) 15 ml Q12 MM Last administered on 08/28/16 08:36; Admin Dose 15 ML; Start 08/24/16 at 09:00 Cholecalciferol (Vitamin D) 1,000 unit DAILY GTB Last administered on 08:35; Admin Dose 1,000 UNIT; Start 08/24/16 at 09:00 Eye Lubricant (Artificial Tears Oph) 2 drop BID BOTH EYES Last administered on 08/28/16 08:36; Admin Dose 2 DROP; Start 08/24/16 at 09:00 Simethicone (Mylicon) 80 mg Q12 PRN GTB DISTENSION/GAS/BLOATING; Start 08/23/16 at 23:00 Tramadol HCl (Ultram) 50 mg BID GTB Last administered on 08/28/16 08:35; Admin Dose 50 MG; Start 08/24/16 at 09:00 Zinc Sulfate (Zinc Sulfate) 220 mg DAILY GTB Last administered on 08/28/16 08: 35; Admin Dose 220 MG; Start 08/24/16 at 09:00 Lactobacillus Acidoph/Bulgaricus (Floranex) 1 tab DAILY PO Last administered on 08/28/16 08:34; Admin Dose 1 TAB; Start 08/24/16 at 11:00 Multivitamins (Thera-Plus) 5 ml DAILY GTB Last administered on 08/28/16 08:34 ; Admin Dose 5 ML; Start 08/24/16 at 09:00 Lansoprazole (Prevacid) 30 mg BID@,18 GTB Last administered on 08/28/16 05: 17; Admin Dose 30 MG; Start 08/24/16 at 06:00 Ferrous Sulfate (Feosol Liquid Cup) 330 mg BID GTB Last administered on 08:36; Admin Dose 330 MG; Start 08/24/16 at 09:00 Docusate Sodium 100 mg 100 mg BID GTB Last administered on 08/28/16 08:36; Admin Dose 100 MG; Start 08/24/16 at 09:00 Norepinephrine/ Dextrose (Levophed/D5W) 500 ml @ 1.87 mls/hr TITRATE IV Last administered on 08/26/16 12:37; Admin Dose 15 MLS/HR; Start 08/24/16 at 03:30 Collagenase (Santyl) 1 applic DAILY TOP Last administered on 08/28/16 08:43; Admin Dose 1 APPLIC; Start 08/24/16 at 03:30 Miscellaneous Information 1 ea NOTE XX ; Start 08/24/16 at 22:00 Glucose (Glutose) 15 gm Q15M PRN PO DECREASED GLUCOSE; Start 08/24/16 at 22:00 Glucose (Glutose) 22.5 gm Q15M PRN PO DECREASED GLUCOSE; Start 08/24/16 at 22:00 Dextrose (D50w Syringe) 25 ml Q15M PRN IV DECREASED GLUCOSE; Start 08/24/16 at 22:00 Dextrose (D50w Syringe) 50 ml Q15M PRN IV DECREASED GLUCOSE; Start 08/24/16 at 22:00 Glucagon (Glucagen) 1 mg Q15M PRN IM DECREASED GLUCOSE; Start 08/24/16 at 22:00 Glucose (Glutose) 15 gm Q15M PRN BUCCAL DECREASED GLUCOSE; Start 08/24/16 at 22: 00 Insulin Aspart (Novolog Insulin Pen) NOVOLOG *MODERATE* ALGORI... Q4 SC Last administered on 08/26/16 21:12; Admin Dose 2 UNIT; Start 08/25/16 at 09:00 Mupirocin 1 applic 1 applic BID TOP Last administered on 08/28/16 08:44; Admin Dose 1 APPLIC; Start 08/25/16 at 21:00; Stop 08/29/16 at 11:00 Cefepime HCl 50 ml @ 100 mls/hr Q24H IVPB Last administered on 08/28/16 08:43 ; Admin Dose 100 MLS/HR; Start 08/26/16 at 09:00 Vancomycin HCl 750 mg/Sodium Chloride 150 ml @ 75 mls/hr Q24H IVPB Last administered on 08/27/16 13:35; Admin Dose 75 MLS/HR; Start 08/26/16 at 13:00 Sodium Chloride (1/2 NS) 1,000 ml @ 100 mls/hr Q10H IV Last administered on 08:36; Admin Dose 100 MLS/HR; Start 08/27/16 at 13:30 Insulin Glargine (Lantus) 10 unit QPM SC ; Start 08/27/16 at 21:00 Miscellaneous Information (*Rx Drug Level Order Reminder*) VANCO TROUGH @ 1, 200 ON... ONCE ONCE XX ; Start 08/28/16 at 12:00; Stop 08/28/16 at 12:01 IAM GÓMEZ MD Aug 28, 2016 09:51
[2016-08-28] MEDS ORDERED: POTASSIUM CHLORIDE 250 ML IVPB ONE (10:00)
--- NOTE | 2016-08-28 12:22 | RADRPT ---
PROCEDURE: XR Chest. CLINICAL INDICATION: Check PICC line position. TECHNIQUE: Single frontal view. COMPARISON: Prior study done earlier the same day. FINDINGS: There is a left arm PICC line with the tip in the lower superior vena cava. The right arm PICC line remains in satisfactory position. The tracheostomy tube is in satisfactory position. There is ate lectasis at the lung bases unchanged. The heart size is normal. There are small bilateral pleural effusions. There is no pneumothorax. IMPRESSION: 1. Satisfactory position of left arm PICC line. 2. Right arm PICC line, tracheostomy tube, bibasilar atelectasis, and small bilateral pleural effus ions unchanged. RPTAT: QQ .Gautam Myers MD, MD Date Time Electronically viewed and signed by .Gautam Myers MD, MD on 08/28/2016 12:22 .R/
--- NOTE | 2016-08-28 12:24 | RADRPT ---
PROCEDURE: XR Chest. CLINICAL INDICATION: Check PICC line position. TECHNIQUE: Single frontal view. COMPARISON: 08/27/2016. FINDINGS: There is a left arm PICC line with the tip in the coiled in the upper superior vena cava. The right arm PICC line remains in satisfactory position. The tracheostomy tube is in satisfactory position. There is atelectasis at the lung bases unchanged. The heart size is normal. There are small bilateral pleural effusions. There is no pneumothorax. IMPRESSION: 1. Repositioning of left arm PICC line is advised. 2. Right arm PICC line, tracheostomy tube, bibasilar atelectasis, and small bilateral pleural effus ions unchanged. 3. Results given to the PICC line nurse. RPTAT: QQ .Gautam Myers MD, Date Time Electronically viewed and signed by .Gautam Myers MD, on 08/28/2016 12:23 .R/
--- NOTE | 2016-08-28 12:31 | CONS ---
Date/Time of Note Date/Time of Note DATE: 08/28/16 TIME: 12:30 Consult Date/Type/Reason Admit Date/Time Aug 23, 2016 at 22:10 Type of Consultation: pulmonary Subjective Patient remained stable on mechanical ventilation Still significant weakness Continues levo fed Still has significant leakage around G-tube site Objective Vital Signs Date Time Temp Pulse Resp B/P Pulse Ox O2 Delivery O2 Flow Rate FiO2 08/28/16 12:00 69 08/28/16 11:00 20 122/82 100 Mechanical Ventilator Trach Collar 08/28/16 08:12 30 08/28/16 08:00 98.4 Intake and Output 08/27/16 08/27/16 08/28/16 15:00 23:00 07:00 Intake Total 1100.61 ml 844.96 ml 994.96 ml Output Total 560 ml 690 ml 570 ml Balance 540.61 ml 154.96 ml 424.96 ml PHYSICAL EXAMINATION GENERAL: Elderly gentleman, chronically ill-appearing on mechanical ventilation VITAL SIGNS: see below. HEENT: Pupils equal, round, and reactive to light. Tracheostomy site clean and intact. CARDIAC: S1, S2, tachycardia. CHEST: Diminished air entry bilaterally. ABDOMEN: Mildly distended. Decreased bowel sounds. Colostomy bag over G-tube site EXTREMITIES: No cyanosis, clubbing edema +1. NEUROLOGIC: Generalized weakness unable to assess Results/Medications Result Diagram: 08/28/16 0450 08/28/16 0450 Results 24 hrs Laboratory Tests Test 08/27/16 13:37 08/27/16 18:25 08/27/16 20:45 08/28/16 04:50 Bedside Glucose 111 106 108 Anion Gap 16 Basophils # 0.0 Basophils % 0.1 Blood Morphology Comment Blood Urea Nitrogen 95 H Calcium Level 6.7 L Carbon Dioxide Level 14 L Chloride Level 117 H Creatinine 1.71 H Eosinophils # 0.2 Eosinophils % 2.7 Glucose Level 115 Hematocrit 20.2 L Hemoglobin 6.9 *L Lymphocytes # 0.2 L Lymphocytes % 2.7 L Mean Corpuscular Hemoglobin 28.9 L Mean Corpuscular Hemoglobin Concent 34.1 Mean Corpuscular Volume 84.8 Mean Platelet Volume 13.4 H Monocytes # 0.3 Monocytes % 3.5 Neutrophils # 7.5 Neutrophils % 91.0 H Nucleated Red Blood Cells # 0.0 Nucleated Red Blood Cells % 0.0 Platelet Count 126 L Potassium Level 2.9 *L Red Blood Count 2.38 L Red Cell Distribution Width 17.3 H Sodium Level 144 White Blood Count 8.2 Test 08/28/16 05:16 Bedside Glucose 125 Medications Current Medications Ondansetron HCl (Zofran Inj) 4 mg Q6H PRN IV NAUSEA AND/OR VOMITING; Start 08/23 at 23:00 Morphine Sulfate (morphine) 2 mg Q4H PRN IV SEVERE PAIN LEVEL 7-10 Last administered on 08/24/16 23:58; Admin Dose 2 MG; Start 08/23/16 at 23:00 Acetaminophen (Tylenol Tab) 650 mg Q4H PRN GTB MILD PAIN LEVEL 1-3 Last administered on 08/24/16 16:15; Admin Dose 650 MG; Start 08/23/16 at 23:00 Amiodarone HCl (Cordarone) 200 mg DAILY GTB Last administered on 08/28/16 08: 35; Admin Dose 200 MG; Start 08/24/16 at 09:00 Ascorbic Acid (Vitamin C) 500 mg DAILY GTB Last administered on 08/28/16 08:34 ; Admin Dose 500 MG; Start 08/24/16 at 09:00 Bisacodyl (Dulcolax Supp) 10 mg Q24H PRN [place] PRN; Start 08/23/16 at 23:00 Chlorhexidine Gluconate (Peridex) 15 ml Q12 MM Last administered on 08/28/16 08:36; Admin Dose 15 ML; Start 08/24/16 at 09:00 Cholecalciferol (Vitamin D) 1,000 unit DAILY GTB Last administered on 08:35; Admin Dose 1,000 UNIT; Start 08/24/16 at 09:00 Eye Lubricant (Artificial Tears Oph) 2 drop BID BOTH EYES Last administered on 08/28/16 08:36; Admin Dose 2 DROP; Start 08/24/16 at 09:00 Simethicone (Mylicon) 80 mg Q12 PRN GTB DISTENSION/GAS/BLOATING; Start 08/23/16 at 23:00 Tramadol HCl (Ultram) 50 mg BID GTB Last administered on 08/28/16 08:35; Admin Dose 50 MG; Start 08/24/16 at 09:00 Zinc Sulfate (Zinc Sulfate) 220 mg DAILY GTB Last administered on 08/28/16 08: 35; Admin Dose 220 MG; Start 08/24/16 at 09:00 Lactobacillus Acidoph/Bulgaricus (Floranex) 1 tab DAILY PO Last administered on 08/28/16 08:34; Admin Dose 1 TAB; Start 08/24/16 at 11:00 Multivitamins (Thera-Plus) 5 ml DAILY GTB Last administered on 08/28/16 08:34 ; Admin Dose 5 ML; Start 08/24/16 at 09:00 Lansoprazole (Prevacid) 30 mg BID@06,18 GTB Last administered on 08/28/16 05: 17; Admin Dose 30 MG; Start 08/24/16 at 06:00 Ferrous Sulfate (Feosol Liquid Cup) 330 mg BID GTB Last administered on 08:36; Admin Dose 330 MG; Start 08/24/16 at 09:00 Docusate Sodium 100 mg 100 mg BID GTB Last administered on 08/28/16 08:36; Admin Dose 100 MG; Start 08/24/16 at 09:00 Norepinephrine/ Dextrose (Levophed/D5W) 500 ml @ 1.87 mls/hr TITRATE IV Last administered on 08/26/16 12:37; Admin Dose 15 MLS/HR; Start 08/24/16 at 03:30 Collagenase (Santyl) 1 applic DAILY TOP Last administered on 08/28/16 08:43; Admin Dose 1 APPLIC; Start 08/24/16 at 03:30 Miscellaneous Information 1 ea NOTE XX ; Start 08/24/16 at 22:00 Glucose (Glutose) 15 gm Q15M PRN PO DECREASED GLUCOSE; Start 08/24/16 at 22:00 Glucose (Glutose) 22.5 gm Q15M PRN PO DECREASED GLUCOSE; Start 08/24/16 at 22:00 Dextrose (D50w Syringe) 25 ml Q15M PRN IV DECREASED GLUCOSE; Start 08/24/16 at 22:00 Dextrose (D50w Syringe) 50 ml Q15M PRN IV DECREASED GLUCOSE; Start 08/24/16 at 22:00 Glucagon (Glucagen) 1 mg Q15M PRN IM DECREASED GLUCOSE; Start 08/24/16 at 22:00 Glucose (Glutose) 15 gm Q15M PRN BUCCAL DECREASED GLUCOSE; Start 08/24/16 at 22: 00 Insulin Aspart (Novolog Insulin Pen) NOVOLOG *MODERATE* ALGORI... Q4 SC Last administered on 08/26/16 21:12; Admin Dose 2 UNIT; Start 08/25/16 at 09:00 Mupirocin 1 applic 1 applic BID TOP Last administered on 08/28/16 08:44; Admin Dose 1 APPLIC; Start 08/25/16 at 21:00; Stop 08/29/16 at 11:00 Cefepime HCl 50 ml @ 100 mls/hr Q24H IVPB Last administered on 08/28/16 08:43 ; Admin Dose 100 MLS/HR; Start 08/26/16 at 09:00 Vancomycin HCl/ Sodium Chloride (Vancocin/NS) 150 ml @ 75 mls/hr Q24H IVPB Last administered on 08/27/16 13:35; Admin Dose 75 MLS/HR; Start 08/26/16 at 13: 00 Insulin Glargine 10 unit 10 unit QPM SC ; Start 08/27/16 at 21:00 Potassium Chloride 250 ml @ 62.5 mls/hr ONCE ONCE IVPB Last administered on 10:13; Admin Dose 62.5 MLS/HR; Start 08/28/16 at 10:00; Stop 08/28/16 at 13:59 Potassium Chloride/Sodium Chloride (1/2 NS + KCl 20 Meq) 1,000 ml @ 80 mls/hr [id number] IV ; Start 08/28/16 at 11:30 Assessment/Plan Chief Complaint/Hosp Course IMPRESSION: 1. Shock-hypovolemic/septic--due to likely cath-related BSI 2. Urinary tract infection with septic shock 3. Acute kidney injury, likely due to hypovolemia and prerenal causes. Hypernatremia 4. Transaminitis, likely due to ischemic hepatopathy. 5. Troponin leak, possibly likely due to demand ischemia. 6. Possible ventilator-associated pneumonia versus aspiration. 7. Chronic encephalopathy. RECOMMENDATIONS: 1. Broad spectrum antibiotics as initiated. 2. Ventilatory support with plans to lower FIO2 as tolerated. 3. Place new PICC line 4. Decrease vasopressors as tolerated 5. Transfusion 1 unit packed red blood cells 6. Renal recommendations consider free water. Overall prognosis remains guarded Palliative care recommendations Problems: VADGAMA[facility]NICK V. [facility] Aug 28, 2016 12:31
[2016-08-28] MEDS: 1/2 NS + KCL 20 MEQ 1,000 ML IV SCH (13:38)
--- NOTE | 2016-08-28 13:59 | RADRPT ---
PROCEDURE: Ultrasound guidance for placement of needle in left upper extremity vein. CLINICAL INDICATION: Venous access. TECHNIQUE: Limited sonography of the left upper extremity was performed. Ultrasound images were recorded and s tored in the patient's medical record. COMPARISON: None. FINDINGS: The ultrasound images demonstrate a patent left upper extremity vein. The PICC line was inserted by the PICC line nurse. IMPRESSION: 1. Ultrasound guidance for a needle placement in a left upper extremity vein. 2. The left upper extremity vein is patent. RPTAT: QQ .Gautam Myers MD, MD Date Time Electronically viewed and signed by .Gautam Myers MD, MD on 08/28/2016 13:59 .R/
--- NOTE | 2016-08-28 14:14 | PN ---
DATE: SUBJECTIVE: No acute events overnight. The patient is lying comfortably in bed, currently getting a PICC line. WBC today 8.2 with H and H of 6.9 and 20.2, platelets 126, neutrophils 91. BUN 95, cr eatinine 1.71. MICROBIOLOGY: Blood culture on admission growing MRSA. Urine culture growing Pseudomonas aeruginos a and Providencia stuartii. Sacral wound culture growing MRSA, Enterococcus species and gram-negati ve rods. Sputum culture growing Achromobacter species, gram-negative rods, Staphylococcus aureus. Repeat blood culture is negative. INDWELLINGS: Trach, PEG, Lopez, right upper extremity PICC line and left upper extremity PICC line in progress to be placed now. ANTIMICROBIALS: The patient is on: 1. IV vancomycin 2. Cefepime. 3. Topical Bactroban to nares. PHYSICAL EXAMINATION: GENERAL: Chronically ill-appearing, elderly man who is in no distress. HEENT: Head atraumatic, normocephalic. Sclerae anicteric. Buccal mucosa dry. NECK: Supple. Tracheostomy present. CHEST: Rise symmetrical. Breath sounds diminished at bases. HEART: S1, S2. ABDOMEN: Soft, distended. Bowel sounds present. EXTREMITIES: Without cyanosis. Multiple decubitus. SKIN: With unstageable sacral wound. ASSESSMENT: 1. Severe sepsis with shock. 2. Methicillin-resistant Staphylococcus aureus septicemia, rule out line sepsis versus secondary to infected decubitus. 3. Multiple infected wounds, present on admission. 4. Polymicrobial urinary tract infection. 5. Methicillin-resistant Staphylococcus aureus nares colonization. 6. Healthcare-associated pneumonia. 7. Acute renal failure. 8. Chronic encephalopathy. PLAN: The patient remains unchanged. White blood cell count tracing down. No fevers. Pending old PICC line discontinuation. He is covered with appropriate antimicrobials. Pending 2D echo. Dictated By: CHRISS RIVAS PORTFOLIO DIRECTOR for BETHANY CASTILLO/LESLY Conf#: [id number] DID#: [id number]
--- NOTE | 2016-08-28 15:42 | RADRPT ---
Echocardiogram Report ADDENDUM Patient Name: CONRADO VINSON Gender: Male Date: 1945 Study Date: 27-Aug-2016 Overhead Cleaner: Kristyn Land RDCS Location: [id number] Ref. Physician: CHRISS RIVAS Quality: Good Procedures: Transthoracic echocardiogram with complete 2D, M-Mode, and doppler examination. Indications: Endocarditis. 2D/M Mode Doppler Measurement Value Normal Ranges Measurement Value Normal Ranges LVIDd 2D 5.0 3.5 - 5.6 cm TR Peak Derek 3.0 m/sec LVIDs 2D 3.6 2.1 - 4.1 cm TR Peak PG 36.6 mmHg LVPWd 2D 1.1 0.6 - 1.1 cm RVSP 45.0 mmHg IVSd 2D 1.3 0.6 - 1.1 cm AoR Diam 2D 2.9 2.0 - 3.7 cm EDV 2D 120.0 cm3 ESV 2D 47.1 cm3 LA Dimen 2D 2.3 2.3 - 4.0 cm Findings Left Ventricle: Normal left ventricular cavity size. Mild concentric left ventricular hypertrophy. Mild left ventricular systolic dysfunction. Ejection fraction is visually estimated at 40 %. These segments of the LV are hypokinetic apical septum, apex, inferior apex segment, Lateral apex and anterior apex segment. Right Ventricle: Normal right ventricular size. Normal right ventricular systolic function. Left Atrium: The left atrium is normal in size. Right Atrium: The right atrium is normal in size. Mitral Valve: Normal appearance and function of the mitral valve with trace physiologic regurgitation. Aortic Valve: Normal appearance of the aortic valve. No significant aortic stenosis or insufficiency. Tricuspid Valve: Estimated peak PA systolic pressure 45 mmHg. There is mild to moderate tricuspid regurgitation. Pulmonic Valve: There is mild pulmonic regurgitation. Pericardium: Small pericardial effusion. No echocardiographic evidence to suggest pericardial tamponade. Right pleural effusion seen. Aorta: Normal aortic root. IVC: Inferior vena cava without respiratory collapse, however, patient on ventilator. Conclusions 1.Normal left ventricular cavity size. Mild concentric left ventricular hypertrophy. Mild left ventricular systolic dysfunction. Ejection fraction is visually estimated at 40 %. These segments of the LV are hypokinetic apical septum, apex, inferior apex segment, Lateral apex and anterior apex segment. 2.Normal appearance and function of the mitral valve with trace physiologic regurgitation. 3.Estimated peak PA systolic pressure 45 mmHg. There is mild to moderate tricuspid regurgitation. 4.There is mild pulmonic regurgitation. 5.Small pericardial effusion. No echocardiographic evidence to suggest pericardial tamponade. Right pleural effusion seen. 6.No definite vegetations noted on any of the well visualized valves. Electronically Signed By: Ken Francis 28-Aug-2016 15:45:58 -0800 [ADDENDUM] Patient Name: CONRADO VINSON Study Date: 27-Aug-[id number]
--- NOTE | 2016-08-28 18:16 | CONS ---
DATE OF ADMISSION: 08/23/2016 DATE OF CONSULTATION: TYPE OF CONSULTATION: Gastroenterology. Dear Dr. Gómez, Thank you for asking me to see Mr. Robles in GI consultation. HISTORY OF PRESENT ILLNESS: The patient, as you know, is a 70-year-old white gentleman who is in [facility] intensive care unit. He is status post tracheostomy. He is in the intensive care unit because of septic shock. He was on Levophed and currently is off of the Levophed. The blood pressure is 130/ 70. GI consultation is requested because of malfunctioning G-tube. He has multiple other medical problems, essentially as mentioned in the chart, has multiple decubitu s ulcers. REVIEW OF SYSTEMS: Indicates chronic encephalopathy. He has urosepsis. Status post PEG placement. SOCIAL HISTORY: He is generally resident of a custodial. MEDICATIONS PRIOR TO THE ADMISSION: Include 1. Iron. 2. Zinc. 3. Vitamins. 4. Tylenol. 5. Tramadol. 6. Simethicone. 7. Omeprazole, 8. Multivitamin. 9. Lantus. PHYSICAL EXAMINATION: GENERAL: The patient is a 70-year-old white gentleman who is alert, at this time is not verbalizing appropriately. VITAL SIGNS: Temperature 97.6, pulse is 72. He is thin and cachectic. CARDIOVASCULAR: Normal heart sounds. RESPIRATORY: Normal breath sounds. ABDOMEN: Soft abdomen. There is evidence of a gastrostomy tube noted, the significant opening of t he gastrostomy site noted. There is some bile draining around the gastrostomy site. LABORATORY WORKUP: Potassium is 2.9, sodium 144. Prothrombin time 17.3. Hemoglobin 6.9, hematocri t 20.2, WBC is 8200. The platelet count is 126,000. Creatinine 2.39, BUN is 121. CLINICAL IMPRESSION: The patient presenting with history of septic shock, urosepsis, respiratory fa ilure, status post tracheostomy. He is connected to vent. For the GI standpoint, he has a gastrost adam site which seems to be significantly large. He is oozing bilious material. CLINICAL IMPRESSION: Malfunctioning gastrostomy tube. I removed the existing gastrostomy tube syeda use of the fact that it will not help to heal the gastrostomy site. PLAN: Continue n.p.o., insert nasogastric tube for medications. Once the gastrostomy site heals, t hen we can put a percutaneous endoscopic gastrostomy tube. Once again, doctor, thank you for this consultation. Dictated By: ERNA HUGGINS/LESLY Conf#: [id number] DID#: [id number] CC: IAM GÓMEZ MD;*EndCC*
[2016-08-28] MEDS ORDERED: SOD CHLORIDE 0.9% 100 ML ONE (19:26)
[2016-08-28] MEDS: INSULIN GLARGINE [LANtus] 3 ML PEN SC SCH (20:59)
--- NOTE | 2016-08-28 21:22 | CONS ---
Date/Time of Note Date/Time of Note DATE: 08/28/16 TIME: 21:21 Assessment/Plan Assessment/Plan Chief Complaint/Hosp Course 1. Acute hypernatremia better 2. Acute kidney injury on chronic kidney disease secondary to previous ischemic acute tubular necrosis from severe prerenal azotemia. 3. Severe prerenal azotemia 4. Sepsis secondary to urinary tract infection. 5. History of recent admission. 6. 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 7. Chronic respiratory failure, status post tracheostomy and status post PEG tube placement. plan iv fluid 0.45 saline kcl Problems: Consultation Date/Type/Reason Admit Date/Time Aug 23, 2016 at 22:10 Type of Consultation: renal 24 HR Interval Summary Subjective hx not possible: pt non-verbal Exam/Review of Systems Vital Signs Vitals Vital Signs Date Time Temp Pulse Resp B/P Pulse Ox O2 Delivery O2 Flow Rate FiO2 08/28/16 20:50 73 20 100 30 08/28/16 20:30 130/73 Mechanical Ventilator Trach Collar 08/28/16 19:30 97.9 Intake and Output 08/27/16 08/27/16 08/28/16 15:00 23:00 07:00 Intake Total 1100.61 ml 844.96 ml 994.96 ml Output Total 560 ml 690 ml 570 ml Balance 540.61 ml 154.96 ml 424.96 ml Exam Neck: supple Respiratory: clear to auscultation Cardiovascular: regular rate and rhythm Gastrointestinal: soft Musculoskeletal: nl extremities to inspection Results Result Diagram: 08/28/16 0450 08/28/16 0450 Results 24 hrs Laboratory Tests Test 08/28/16 04:50 08/28/16 05:16 08/28/16 12:15 08/28/16 13:46 Anion Gap 16 Basophils # 0.0 Basophils % 0.1 Blood Morphology Comment Blood Urea Nitrogen 95 H Calcium Level 6.7 L Carbon Dioxide Level 14 L Chloride Level 117 H Creatinine 1.71 H Eosinophils # 0.2 Eosinophils % 2.7 Glucose Level 115 Hematocrit 20.2 L Hemoglobin 6.9 *L Lymphocytes # 0.2 L Lymphocytes % 2.7 L Mean Corpuscular Hemoglobin 28.9 L Mean Corpuscular Hemoglobin Concent 34.1 Mean Corpuscular Volume 84.8 Mean Platelet Volume 13.4 H Monocytes # 0.3 Monocytes % 3.5 Neutrophils # 7.5 Neutrophils % 91.0 H Nucleated Red Blood Cells # 0.0 Nucleated Red Blood Cells % 0.0 Platelet Count 126 L Potassium Level 2.9 *L Red Blood Count 2.38 L Red Cell Distribution Width 17.3 H Sodium Level 144 White Blood Count 8.2 Bedside Glucose 125 114 Vancomycin Level Trough 23.2 *H Test 08/28/16 18:26 08/28/16 19:44 Bedside Glucose 100 94 Medications Medications Current Medications Ondansetron HCl (Zofran Inj) 4 mg Q6H PRN IV NAUSEA AND/OR VOMITING; Start 08/23 at 23:00 Morphine Sulfate (morphine) 2 mg Q4H PRN IV SEVERE PAIN LEVEL 7-10 Last administered on 08/24/16 23:58; Admin Dose 2 MG; Start 08/23/16 at 23:00 Acetaminophen (Tylenol Tab) 650 mg Q4H PRN GTB MILD PAIN LEVEL 1-3 Last administered on 08/24/16 16:15; Admin Dose 650 MG; Start 08/23/16 at 23:00 Amiodarone HCl (Cordarone) 200 mg DAILY GTB Last administered on 08/28/16 08: 35; Admin Dose 200 MG; Start 08/24/16 at 09:00 Ascorbic Acid (Vitamin C) 500 mg DAILY GTB Last administered on 08/28/16 08:34 ; Admin Dose 500 MG; Start 08/24/16 at 09:00 Bisacodyl (Dulcolax Supp) 10 mg Q24H PRN [place] PRN; Start 08/23/16 at 23:00 Chlorhexidine Gluconate (Peridex) 15 ml Q12 MM Last administered on 08/28/16 20:58; Admin Dose 15 ML; Start 08/24/16 at 09:00 Cholecalciferol (Vitamin D) 1,000 unit DAILY GTB Last administered on 08:35; Admin Dose 1,000 UNIT; Start 08/24/16 at 09:00 Eye Lubricant (Artificial Tears Oph) 2 drop BID BOTH EYES Last administered on 08/28/16 20:58; Admin Dose 2 DROP; Start 08/24/16 at 09:00 Simethicone (Mylicon) 80 mg Q12 PRN GTB DISTENSION/GAS/BLOATING; Start 08/23/16 at 23:00 Tramadol HCl (Ultram) 50 mg BID GTB Last administered on 08/28/16 20:59; Admin Dose 50 MG; Start 08/24/16 at 09:00 Zinc Sulfate (Zinc Sulfate) 220 mg DAILY GTB Last administered on 08/28/16 08: 35; Admin Dose 220 MG; Start 08/24/16 at 09:00 Lactobacillus Acidoph/Bulgaricus (Floranex) 1 tab DAILY PO Last administered on 08/28/16 08:34; Admin Dose 1 TAB; Start 08/24/16 at 11:00 Multivitamins (Thera-Plus) 5 ml DAILY GTB Last administered on 08/28/16 08:34 ; Admin Dose 5 ML; Start 08/24/16 at 09:00 Lansoprazole (Prevacid) 30 mg BID@06,18 GTB Last administered on 08/28/16 18: 27; Admin Dose 30 MG; Start 08/24/16 at 06:00 Ferrous Sulfate (Feosol Liquid Cup) 330 mg BID GTB Last administered on 20:58; Admin Dose 330 MG; Start 08/24/16 at 09:00 Docusate Sodium 100 mg 100 mg BID GTB Last administered on 08/28/16 20:58; Admin Dose 100 MG; Start 08/24/16 at 09:00 Norepinephrine/ Dextrose (Levophed/D5W) 500 ml @ 1.87 mls/hr TITRATE IV Last administered on 08/26/16 12:37; Admin Dose 15 MLS/HR; Start 08/24/16 at 03:30 Collagenase (Santyl) 1 applic DAILY TOP Last administered on 08/28/16 08:43; Admin Dose 1 APPLIC; Start 08/24/16 at 03:30 Miscellaneous Information 1 ea NOTE XX ; Start 08/24/16 at 22:00 Glucose (Glutose) 15 gm Q15M PRN PO DECREASED GLUCOSE; Start 08/24/16 at 22:00 Glucose (Glutose) 22.5 gm Q15M PRN PO DECREASED GLUCOSE; Start 08/24/16 at 22:00 Dextrose (D50w Syringe) 25 ml Q15M PRN IV DECREASED GLUCOSE; Start 08/24/16 at 22:00 Dextrose (D50w Syringe) 50 ml Q15M PRN IV DECREASED GLUCOSE; Start 08/24/16 at 22:00 Glucagon (Glucagen) 1 mg Q15M PRN IM DECREASED GLUCOSE; Start 08/24/16 at 22:00 Glucose (Glutose) 15 gm Q15M PRN BUCCAL DECREASED GLUCOSE; Start 08/24/16 at 22: 00 Insulin Aspart (Novolog Insulin Pen) NOVOLOG *MODERATE* ALGORI... Q4 SC Last administered on 08/26/16 21:12; Admin Dose 2 UNIT; Start 08/25/16 at 09:00 Mupirocin 1 applic 1 applic BID TOP Last administered on 08/28/16 20:58; Admin Dose 1 APPLIC; Start 08/25/16 at 21:00; Stop 08/29/16 at 11:00 Cefepime HCl (Maxipime 2gm/50 ml (Pmx)) 50 ml @ 100 mls/hr Q24H IVPB Last administered on 08/28/16 08:43; Admin Dose 100 MLS/HR; Start 08/26/16 at 09:00 Insulin Glargine 10 unit 10 unit QPM SC ; Start 08/27/16 at 21:00 Potassium Chloride/Sodium Chloride (1/2 NS + KCl 20 Meq) 1,000 ml @ 80 mls/hr [id number] IV Last administered on 08/28/16 13:38; Admin Dose 80 MLS/HR; Start at 11:30 IV Flush 10 ml 10 ml PRN PRN IV IV PROTOCOL; Start 08/28/16 at 13:30 Vancomycin HCl/ Sodium Chloride (Vancocin/NS) 150 ml @ 75 mls/hr Q36H IVPB ; Start 08/29/16 at 10:00 PATRICIO ELIZALDE MD Aug 28, 2016 21:21
[2016-08-29] VITALS (46 sets, daily range): BP systolic 111–151; BP diastolic 57–87; PULSE 50–80; RESP 16–21
[2016-08-29] MEDS: INSULIN ASPART [NOVOLOG] 3 ML PEN SC SCH ×6 (01:00→21:00)
[2016-08-29] MEDS: 1/2 NS + KCL 20 MEQ 1,000 ML IV SCH (01:34)
[2016-08-29 05:07] LABS: BASOPHILS % 0.1 % (0.0-2.0); EOSINOPHILS # 0.2 10^3/ul (0.0-0.5); EOSINOPHILS % 2.5 % (0.0-7.0); HEMATOCRIT 25.3 % (42.0-52.0); HEMOGLOBIN 8.3 g/dl (14.0-18.0); LYMPHOCYTES # 0.3 10^3/ul (0.8-2.9); LYMPHOCYTES % 3.7 % (15.0-51.0); MEAN CORPUSCULAR HEMOGLOBIN 28.4 pg (29.0-33.0); MEAN CORPUSCULAR VOLUME 86.1 fl (82.0-101.0); MEAN PLATELET VOLUME 12.3 fl (7.4-10.4); MONOCYTE # 0.3 10^3/ul (0.3-0.9); MONOCYTES % 4.2 % (0.0-11.0); NEUTROPHIL # 6.4 10^3/ul (1.6-7.5); NEUTROPHILS % 89.5 % (39.0-77.0); PLATELET COUNT 118 10^3/UL (140-440); RED BLOOD COUNT 2.94 10^6/ul (4.70-6.10); RED CELL DISTRIBUTION WIDTH 16.1 % (11.5-14.5); UNCORRECTED WBC 7.2 10^3/ul (4.8-10.8); WHITE BLOOD COUNT 7.2 10^3/ul (4.8-10.8)
[2016-08-29 05:23] LABS: CONDITION 1; LH ANALYZER COMMENTS 1; SUSPECT 1
[2016-08-29 05:26] LABS: POTASSIUM 5.4 mmol/L (3.5-5.1)
[2016-08-29 05:29] LABS: CREATININE 1.73 mg/dl (0.61-1.24)
[2016-08-29 05:30] LABS: CALCIUM 7.3 mg/dl (8.4-10.2)
[2016-08-29] MEDS: LANSOPRAZOLE 30 MG CAP GTB SCH ×2 (06:13→18:17)
[2016-08-29] MEDS: AMIODARONE 200 MG TAB GTB SCH (08:15)
[2016-08-29] MEDS: DOCUSATE SODIUM 10 MG/ML (10ML CUP) GTB SCH ×2 (08:15→22:03)
[2016-08-29] MEDS: ZINC SULFATE 220 MG CAP GTB SCH (08:16)
[2016-08-29] MEDS: CHOLECALCIFEROL 1,000 UNIT TAB GTB SCH (08:16)
[2016-08-29] MEDS: traMADol 50 MG TAB GTB SCH ×2 (08:16→22:03)
[2016-08-29] MEDS: ASCORBIC ACID 500 MG TAB GTB SCH (08:16)
[2016-08-29] MEDS: LACTOBACILLUS CHEW TAB PO SCH (08:16)
[2016-08-29] MEDS: CHLORHEXIDINE GLUCONATE 15 ML UD CUP MM SCH ×2 (08:16→22:03)
[2016-08-29] MEDS: MUPIROCIN 2% 22 GM OINT TOP SCH (08:17)
[2016-08-29] MEDS: ARTIFICIAL TEARS 15 ML OPH BOTH EYES SCH ×2 (08:17→23:07)
[2016-08-29] MEDS: COLLAGENASE 30 GM TUBE TOP SCH (08:17)
[2016-08-29] MEDS: MULTIVITAMINS 5 ML CUP GTB SCH (08:17)
[2016-08-29] MEDS: FERROUS SULFATE 60 MG/ML 5ML CUP GTB SCH ×2 (08:17→22:02)
[2016-08-29] MEDS: CEFEPIME 2GM/50 ML (PMX) 50 ML IVPB SCH (08:18)
--- NOTE | 2016-08-29 09:09 | PN ---
Date/Time of Note Date/Time of Note DATE: 08/29/16 TIME: 09:03 Assessment/Plan VTE Prophylaxis VTE Prophylaxis Intervention: other Lines/Catheters IV Catheter Type (from Nrs): PICC Line Central line still needed: Yes Urinary Cath still in place: Yes Reason Cath still needed: other (indicate) Assessment/Plan Chief Complaint/Hosp Course Assessment and plan: 1. Sepsis, likely secondary to urinary tract infection, line sepsis and severe dehydration Continue sepsis protocol, aggressive IV fluid, pressors, broad-spectrum IV antibiotics Infectious disease and dietitian therapeutic been consulted We will attempt triple lumen central venous catheter insertion today and then remove PICC line 2. Urinary tract infection, Continue broad-spectrum IV antibiotics, follow urine culture and sensitivity 3. Acute renal failure, likely secondary to severe dehydration Continue IV fluids, nephrology has been consulted follow-up renal panel in a.m. 4. Severe hypernatremia, likely secondary to severe dehydration, improving Continue D5W, free water through PEG tube, follow-up renal panel and electrolytes in a.m. Nephrology has been consulted 5. Hypokalemia, Repleted 6. Transaminitis, Likely secondary to severe dehydration, caution with hepatotoxic medication Follow-up liver function tests in a.m. 7. Diabetic mellitus, better controlled Continue insulin sliding scale, continue Lantus, restart diabeticsource 8. Sacral decubitus, with evidence of lower extremity decubitus as well Wound care consulted 9. Anemia, Continue iron supplementations, will transfuse PRBC if hemoglobin is less than 7.5 Status post transfusion of total 3 unit packed red blood cell Follow-up CBC in a.m. 10. PEG tube dysfunction, will obtain GI consultation 11. Feeding, at this time will hold tube feeding secondary to PEG tube dysfunction Condition: Guarded We will continue monitor patient closely for recommendation management treatment as clinical course Transferred to telemetry floor Plan to transfer to longterm facility after PEG tube replacement Problems: Subjective 24 Hr Interval Summary Free Text/Dictation Patient is off pressors Vent dependent Minimal response to verbal stimuli PEG tube feeding has been placed on hold secondary to PEG tube dysfunction Exam/Review of Systems Vital Signs Vitals Vital Signs Date Time Temp Pulse Resp B/P Pulse Ox O2 Delivery O2 Flow Rate FiO2 08/29/16 08:00 97.7 77 19 136/80 100 Mechanical Ventilator 08/29/16 07:10 30 Intake and Output 08/28/16 08/28/16 08/29/16 15:00 23:00 07:00 Intake Total 746.23 ml 1600 ml 740 ml Output Total 550 ml 630 ml 640 ml Balance 196.23 ml 970 ml 100 ml Exam General: The patient is cachectic, HEENT: Atraumatic, normocephalic. The pupils are symmetric, decubitus ulcer bilateral earlobes Neck: Trach in place Chest: Normal Lungs: Decreased breath sounds bilateral lower lung field Heart: Normal S1-S2, Regular rhythm and rate. Abdomen: Soft , nontender, nondistended , bowel sounds are present. PEG tube site leaking, erythema around PEG tube site Extremities: Nonpitting edema bilateral lower extremity, bilateral lower extremities flaccid, decubitus ulcer bilateral lower extremities Neurologic: Patient is awake , minimal respond to pain or verbal stimuli Results Result Diagram: 08/29/16 0430 08/29/16 0430 Results 24 hrs Laboratory Tests Test 08/28/16 12:15 08/28/16 13:46 08/28/16 18:26 08/28/16 19:44 Vancomycin Level Trough 23.2 *H Bedside Glucose 114 100 94 Test 08/29/16 04:30 08/29/16 05:40 08/29/16 07:54 Anion Gap 15 Basophils # 0.0 Basophils % 0.1 Blood Morphology Comment Blood Urea Nitrogen 87 H Calcium Level 7.3 L Carbon Dioxide Level 16 L Chloride Level 126 H Creatinine 1.73 H Eosinophils # 0.2 Eosinophils % 2.5 Glucose Level 77 Hematocrit 25.3 #L Hemoglobin 8.3 #L Lymphocytes # 0.3 L Lymphocytes % 3.7 L Mean Corpuscular Hemoglobin 28.4 L Mean Corpuscular Hemoglobin Concent 33.0 Mean Corpuscular Volume 86.1 Mean Platelet Volume 12.3 H Monocytes # 0.3 Monocytes % 4.2 Neutrophils # 6.4 Neutrophils % 89.5 H Nucleated Red Blood Cells # 0.0 Nucleated Red Blood Cells % 0.0 Platelet Count 118 L Potassium Level 5.4 #H Red Blood Count 2.94 #L Red Cell Distribution Width 16.1 H Sodium Level 152 H White Blood Count 7.2 Bedside Glucose 86 96 Medications Medications Current Medications Ondansetron HCl (Zofran Inj) 4 mg Q6H PRN IV NAUSEA AND/OR VOMITING; Start 08/23 at 23:00 Morphine Sulfate (morphine) 2 mg Q4H PRN IV SEVERE PAIN LEVEL 7-10 Last administered on 08/24/16 23:58; Admin Dose 2 MG; Start 08/23/16 at 23:00 Acetaminophen (Tylenol Tab) 650 mg Q4H PRN GTB MILD PAIN LEVEL 1-3 Last administered on 08/24/16 16:15; Admin Dose 650 MG; Start 08/23/16 at 23:00 Amiodarone HCl (Cordarone) 200 mg DAILY GTB Last administered on 08/29/16 08: 15; Admin Dose 200 MG; Start 08/24/16 at 09:00 Ascorbic Acid (Vitamin C) 500 mg DAILY GTB Last administered on 08/29/16 08:16 ; Admin Dose 500 MG; Start 08/24/16 at 09:00 Bisacodyl (Dulcolax Supp) 10 mg Q24H PRN [place] PRN; Start 08/23/16 at 23:00 Chlorhexidine Gluconate (Peridex) 15 ml Q12 MM Last administered on 08/29/16 08:16; Admin Dose 15 ML; Start 08/24/16 at 09:00 Cholecalciferol (Vitamin D) 1,000 unit DAILY GTB Last administered on 08:16; Admin Dose 1,000 UNIT; Start 08/24/16 at 09:00 Eye Lubricant (Artificial Tears Oph) 2 drop BID BOTH EYES Last administered on 08/29/16 08:17; Admin Dose 2 DROP; Start 08/24/16 at 09:00 Simethicone (Mylicon) 80 mg Q12 PRN GTB DISTENSION/GAS/BLOATING; Start 08/23/16 at 23:00 Tramadol HCl (Ultram) 50 mg BID GTB Last administered on 08/29/16 08:16; Admin Dose 50 MG; Start 08/24/16 at 09:00 Zinc Sulfate (Zinc Sulfate) 220 mg DAILY GTB Last administered on 08/29/16 08: 16; Admin Dose 220 MG; Start 08/24/16 at 09:00 Lactobacillus Acidoph/Bulgaricus (Floranex) 1 tab DAILY PO Last administered on 08/29/16 08:16; Admin Dose 1 TAB; Start 08/24/16 at 11:00 Multivitamins (Thera-Plus) 5 ml DAILY GTB Last administered on 08/29/16 08:17 ; Admin Dose 5 ML; Start 08/24/16 at 09:00 Lansoprazole (Prevacid) 30 mg BID@06,18 GTB Last administered on 08/29/16 06: 13; Admin Dose 30 MG; Start 08/24/16 at 06:00 Ferrous Sulfate (Feosol Liquid Cup) 330 mg BID GTB Last administered on 08:17; Admin Dose 330 MG; Start 08/24/16 at 09:00 Docusate Sodium 100 mg 100 mg BID GTB Last administered on 08/29/16 08:15; Admin Dose 100 MG; Start 08/24/16 at 09:00 Norepinephrine/ Dextrose (Levophed/D5W) 500 ml @ 1.87 mls/hr TITRATE IV Last administered on 08/26/16 12:37; Admin Dose 15 MLS/HR; Start 08/24/16 at 03:30 Collagenase (Santyl) 1 applic DAILY TOP Last administered on 08/29/16 08:17; Admin Dose 1 APPLIC; Start 08/24/16 at 03:30 Miscellaneous Information 1 ea NOTE XX ; Start 08/24/16 at 22:00 Glucose (Glutose) 15 gm Q15M PRN PO DECREASED GLUCOSE; Start 08/24/16 at 22:00 Glucose (Glutose) 22.5 gm Q15M PRN PO DECREASED GLUCOSE; Start 08/24/16 at 22:00 Dextrose (D50w Syringe) 25 ml Q15M PRN IV DECREASED GLUCOSE; Start 08/24/16 at 22:00 Dextrose (D50w Syringe) 50 ml Q15M PRN IV DECREASED GLUCOSE; Start 08/24/16 at 22:00 Glucagon (Glucagen) 1 mg Q15M PRN IM DECREASED GLUCOSE; Start 08/24/16 at 22:00 Glucose (Glutose) 15 gm Q15M PRN BUCCAL DECREASED GLUCOSE; Start 08/24/16 at 22: 00 Insulin Aspart (Novolog Insulin Pen) NOVOLOG *MODERATE* ALGORI... Q4 SC Last administered on 08/26/16 21:12; Admin Dose 2 UNIT; Start 08/25/16 at 09:00 Mupirocin 1 applic 1 applic BID TOP Last administered on 08/29/16 08:17; Admin Dose 1 APPLIC; Start 08/25/16 at 21:00; Stop 08/29/16 at 11:00 Cefepime HCl (Maxipime 2gm/50 ml (Pmx)) 50 ml @ 100 mls/hr Q24H IVPB Last administered on 08/29/16 08:18; Admin Dose 100 MLS/HR; Start 08/26/16 at 09:00 Insulin Glargine 10 unit 10 unit QPM SC ; Start 08/27/16 at 21:00 Potassium Chloride/Sodium Chloride (1/2 NS + KCl 20 Meq) 1,000 ml @ 80 mls/hr [id number] IV Last administered on 08/29/16 01:34; Admin Dose 80 MLS/HR; Start at 11:30 IV Flush 10 ml 10 ml PRN PRN IV IV PROTOCOL; Start 08/28/16 at 13:30 Vancomycin HCl/ Sodium Chloride (Vancocin/NS) 150 ml @ 75 mls/hr Q36H IVPB ; Start 08/29/16 at 10:00 IAM GÓMEZ MD Aug 29, 2016 09:09
--- NOTE | 2016-08-29 09:12 | CONS ---
Date/Time of Note Date/Time of Note DATE: 08/29/16 TIME: 09:09 Consult Date/Type/Reason Admit Date/Time Aug 23, 2016 at 22:10 Type of Consultation: pulmonary Subjective Patient remains comfortable on mechanical ventilation No vasopressors Continues to have significant leakage from G-tube site NG tube was placed and G-tube was removed Objective Vital Signs Date Time Temp Pulse Resp B/P Pulse Ox O2 Delivery O2 Flow Rate FiO2 08/29/16 08:00 97.7 77 19 136/80 100 Mechanical Ventilator 08/29/16 07:10 30 Intake and Output 08/28/16 08/28/16 08/29/16 15:00 23:00 07:00 Intake Total 746.23 ml 1600 ml 740 ml Output Total 550 ml 630 ml 640 ml Balance 196.23 ml 970 ml 100 ml PHYSICAL EXAMINATION GENERAL: Elderly gentleman, chronically ill-appearing on mechanical ventilation VITAL SIGNS: see below. HEENT: Pupils equal, round, and reactive to light. Tracheostomy site clean and intact. CARDIAC: S1, S2, tachycardia. CHEST: Diminished air entry bilaterally. ABDOMEN: Mildly distended. Decreased bowel sounds. Colostomy bag over G-tube site EXTREMITIES: No cyanosis, clubbing edema +1. NEUROLOGIC: Generalized weakness unable to assess Results/Medications Result Diagram: 08/29/16 0430 08/29/16 0430 Results 24 hrs Laboratory Tests Test 08/28/16 12:15 08/28/16 13:46 08/28/16 18:26 08/28/16 19:44 Vancomycin Level Trough 23.2 *H Bedside Glucose 114 100 94 Test 08/29/16 04:30 08/29/16 05:40 08/29/16 07:54 Anion Gap 15 Basophils # 0.0 Basophils % 0.1 Blood Morphology Comment Blood Urea Nitrogen 87 H Calcium Level 7.3 L Carbon Dioxide Level 16 L Chloride Level 126 H Creatinine 1.73 H Eosinophils # 0.2 Eosinophils % 2.5 Glucose Level 77 Hematocrit 25.3 #L Hemoglobin 8.3 #L Lymphocytes # 0.3 L Lymphocytes % 3.7 L Mean Corpuscular Hemoglobin 28.4 L Mean Corpuscular Hemoglobin Concent 33.0 Mean Corpuscular Volume 86.1 Mean Platelet Volume 12.3 H Monocytes # 0.3 Monocytes % 4.2 Neutrophils # 6.4 Neutrophils % 89.5 H Nucleated Red Blood Cells # 0.0 Nucleated Red Blood Cells % 0.0 Platelet Count 118 L Potassium Level 5.4 #H Red Blood Count 2.94 #L Red Cell Distribution Width 16.1 H Sodium Level 152 H White Blood Count 7.2 Bedside Glucose 86 96 Medications Current Medications Ondansetron HCl (Zofran Inj) 4 mg Q6H PRN IV NAUSEA AND/OR VOMITING; Start 08/23 at 23:00 Morphine Sulfate (morphine) 2 mg Q4H PRN IV SEVERE PAIN LEVEL 7-10 Last administered on 08/24/16 23:58; Admin Dose 2 MG; Start 08/23/16 at 23:00 Acetaminophen (Tylenol Tab) 650 mg Q4H PRN GTB MILD PAIN LEVEL 1-3 Last administered on 08/24/16 16:15; Admin Dose 650 MG; Start 08/23/16 at 23:00 Amiodarone HCl (Cordarone) 200 mg DAILY GTB Last administered on 08/29/16 08: 15; Admin Dose 200 MG; Start 08/24/16 at 09:00 Ascorbic Acid (Vitamin C) 500 mg DAILY GTB Last administered on 08/29/16 08:16 ; Admin Dose 500 MG; Start 08/24/16 at 09:00 Bisacodyl (Dulcolax Supp) 10 mg Q24H PRN [place] PRN; Start 08/23/16 at 23:00 Chlorhexidine Gluconate (Peridex) 15 ml Q12 MM Last administered on 08/29/16 08:16; Admin Dose 15 ML; Start 08/24/16 at 09:00 Cholecalciferol (Vitamin D) 1,000 unit DAILY GTB Last administered on 08:16; Admin Dose 1,000 UNIT; Start 08/24/16 at 09:00 Eye Lubricant (Artificial Tears Oph) 2 drop BID BOTH EYES Last administered on 08/29/16 08:17; Admin Dose 2 DROP; Start 08/24/16 at 09:00 Simethicone (Mylicon) 80 mg Q12 PRN GTB DISTENSION/GAS/BLOATING; Start 08/23/16 at 23:00 Tramadol HCl (Ultram) 50 mg BID GTB Last administered on 08/29/16 08:16; Admin Dose 50 MG; Start 08/24/16 at 09:00 Zinc Sulfate (Zinc Sulfate) 220 mg DAILY GTB Last administered on 08/29/16 08: 16; Admin Dose 220 MG; Start 08/24/16 at 09:00 Lactobacillus Acidoph/Bulgaricus (Floranex) 1 tab DAILY PO Last administered on 08/29/16 08:16; Admin Dose 1 TAB; Start 08/24/16 at 11:00 Multivitamins (Thera-Plus) 5 ml DAILY GTB Last administered on 08/29/16 08:17 ; Admin Dose 5 ML; Start 08/24/16 at 09:00 Lansoprazole (Prevacid) 30 mg BID@18 GTB Last administered on 08/29/16 06: 13; Admin Dose 30 MG; Start 08/24/16 at 06:00 Ferrous Sulfate (Feosol Liquid Cup) 330 mg BID GTB Last administered on 08:17; Admin Dose 330 MG; Start 08/24/16 at 09:00 Docusate Sodium (Colace Liquid Cup) 100 mg BID GTB Last administered on 08:15; Admin Dose 100 MG; Start 08/24/16 at 09:00 Collagenase (Santyl) 1 applic DAILY TOP Last administered on 08/29/16 08:17; Admin Dose 1 APPLIC; Start 08/24/16 at 03:30 Miscellaneous Information 1 ea NOTE XX ; Start 08/24/16 at 22:00 Glucose (Glutose) 15 gm Q15M PRN PO DECREASED GLUCOSE; Start 08/24/16 at 22:00 Glucose (Glutose) 22.5 gm Q15M PRN PO DECREASED GLUCOSE; Start 08/24/16 at 22:00 Dextrose (D50w Syringe) 25 ml Q15M PRN IV DECREASED GLUCOSE; Start 08/24/16 at 22:00 Dextrose (D50w Syringe) 50 ml Q15M PRN IV DECREASED GLUCOSE; Start 08/24/16 at 22:00 Glucagon (Glucagen) 1 mg Q15M PRN IM DECREASED GLUCOSE; Start 08/24/16 at 22:00 Glucose (Glutose) 15 gm Q15M PRN BUCCAL DECREASED GLUCOSE; Start 08/24/16 at 22: 00 Insulin Aspart (Novolog Insulin Pen) NOVOLOG *MODERATE* [place]GORI... Q4 SC Last administered on 08/26/16 21:12; Admin Dose 2 UNIT; Start 08/25/16 at 09:00 Mupirocin 1 applic 1 applic BID TOP Last administered on 08/29/16 08:17; Admin Dose 1 APPLIC; Start 08/25/16 at 21:00; Stop 08/29/16 at 11:00 Cefepime HCl (Maxipime 2gm/50 ml (Pmx)) 50 ml @ 100 mls/hr Q24H IVPB Last administered on 08/29/16 08:18; Admin Dose 100 MLS/HR; Start 08/26/16 at 09:00 Insulin Glargine 10 unit 10 unit QPM SC ; Start 08/27/16 at 21:00 Potassium Chloride/Sodium Chloride (1/2 NS + KCl 20 Meq) 1,000 ml @ 80 mls/hr [id number] IV Last administered on 08/29/16 01:34; Admin Dose 80 MLS/HR; Start at 11:30 IV Flush 10 ml 10 ml PRN PRN IV IV PROTOCOL; Start 08/28/16 at 13:30 Vancomycin HCl/ Sodium Chloride (Vancocin/NS) 150 ml @ 75 mls/hr Q36H IVPB ; Start 08/29/16 at 10:00 Assessment/Plan Chief Complaint/Hosp Course IMPRESSION: 1. Status post Shock-hypovolemic/septic--due to likely cath-related BSI 2. Urinary tract infection with septic shock 3. Acute kidney injury, likely due to hypovolemia and prerenal causes. Hypernatremia 4. Transaminitis, likely due to ischemic hepatopathy. 5. Troponin leak, possibly likely due to demand ischemia. 6. Possible ventilator-associated pneumonia versus aspiration. 7. Chronic encephalopathy. RECOMMENDATIONS: 1. Broad spectrum antibiotics as initiated. 2. Ventilatory support with plans to lower FIO2 as tolerated. 3. Consider DC PICC line for line vacation 4. Vasopressors as needed 5. Status post PRBCs we'll need right occipital 6. Renal recommendations consider free water. Overall prognosis remains guarded Palliative care recommendations Transfer to telemetry Problems: [facility]ALLARD [facility] Aug 29, 2016 09:12
--- NOTE | 2016-08-29 09:43 | RADRPT ---
PROCEDURE: XR Chest 1 View. CLINICAL INDICATION: Shortness of breath, pneumonia, congestive heart failure. TECHNIQUE: AP view of the chest were obtained. COMPARISON: August 28, 2016 FINDINGS: The heart size is within normal limits. Calcified atherosclerosis is noted in the aorta. Tracheosto my tube is stable. Left-sided PICC line has its tip in the expected location of the mid superior ve na cava. Right-sided PICC line has been removed. Nasogastric tube has its distal end in the expect ed location of the stomach. Elevation of the right hemidiaphragm continues to be identified. Bilat eral lower lobe infiltrates, possibly combined small pleural effusions are unchanged. Osseous struc tures are osteopenic and appear stable. Old, healed right clavicle fracture is noted. IMPRESSION: Calcified atherosclerosis in the aorta. Interval right PICC line removal. Stable elevation of the right hemidiaphragm. Stable bilateral lower lung infiltrates combined with small pleural effusions. RPTAT: AA .Josue Bush MD, MD Date Time Electronically viewed and signed by .Josue Bush MD, on 08/29/2016 09:43 .P/
[2016-08-29] MEDS ORDERED: VANCOMYCIN 750 MG in SOD CHLORIDE 0.9% 150 ML IVPB SCH (10:00)
[2016-08-29 13:08] LABS: AADO2 Arterial 64.4 mmHg (7.0-24.0); Allen Test ACCEPTAB; Arterial Base Excess -10.1 mmol/L (-3.0-3); Arterial COHb 0.2 % (0.0-3.0); Arterial Fraction of Oxyhgb 96.6 % (93.0-99.0); Arterial HCO3 14.6 mmol/L (22.0-26.0); Arterial MetHb 0.5 % (0.0-1.5); Arterial Total Hemglobin 11.7 g/dl (12.0-18.0); MODE VENT - AC
--- NOTE | 2016-08-29 15:09 | PN ---
DATE: 08/29/2016 SUBJECTIVE: No changes overnight. No fevers. The patient is off pressors and comfortable on vent. VITAL SIGNS: Temperature 97.5, pulse 72, respirations 18, blood pressure 147/85, saturation 100 on 30 of FIO2. WBC 7.2, H and H 8.3 and 25.3, platelets 118, neutrophils 89.5, BUN 87, creatinine 1.73. MICROBIOLOGY: Repeat blood cultures negative. Initial blood culture grew MRSA. Wound culture grow ing MRSA and Klebsiella pneumoniae VRE. Urine culture growing Pseudomonas aeruginosa and Providenci a stuartii. INDWELLINGS: Trach, NG tube, Lopez, left upper extremity PICC line placed on 08/28/2016. DIAGNOSTICS: Chest x-ray this morning revealed stable bilateral infiltrates. ANTIMICROBIALS: 1. Vancomycin. 2. Cefepime. PHYSICAL EXAMINATION: GENERAL: Chronically ill-appearing, elderly man who is in no distress. HEENT: Head atraumatic, normocephalic. Sclerae anicteric. Buccal mucosa dry. NECK: Supple. Tracheostomy present. CHEST: Rise symmetrical. Breath sounds diminished to bases. HEART: S1, S2. ABDOMEN: Soft. Bowel tones present. EXTREMITIES: With multiple decubitus. SKIN: No jaundice, no cyanosis. Again, the patient has unstageable sacral wound. ASSESSMENT: 1. Sepsis status post shock. 3. Methicillin-resistant Staphylococcus aureus bacteremia, likely secondary to #3. 4. Unstageable sacral wound with culture growing methicillin-resistant Staphylococcus aureus, vanco mycin-resistant enterococcus Klebsiella pneumoniae and Proteus mirabilis. 5. Polymicrobial urinary tract infection. 6. Healthcare-associated pneumonia. 7. Chronic encephalopathy. 8. Transaminitis. 9. Acute renal failure. PLAN: The patient remains hemodynamically stable, overall improving. White blood cell count tracin g down. We are going to change vancomycin to Zyvox, continue cefepime. Add Levaquin to cover multi -drug resistant organisms in his wound. Continue local wound care. Follow recommendations of cons ultants. Pending PEG when old site healed. Dictated By: CHRISS RIVAS CERTIFIED HOME HEALTH AIDE for BETHANY CASTILLO/LESLY Conf#: [id number] DID#: [id number]
--- NOTE | 2016-08-29 15:30 | CONS ---
Date/Time of Note Date/Time of Note DATE: 08/29/16 TIME: 15:27 Assessment/Plan Assessment/Plan Chief Complaint/Hosp Course 1. Acute hypernatremia 2. Acute kidney injury on chronic kidney disease secondary to previous ischemic acute tubular necrosis from severe prerenal azotemia. 3. Severe prerenal azotemia 4. Sepsis secondary to urinary tract infection. 5. History of recent admission. 6. 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 7. Chronic respiratory failure, status post tracheostomy and status post PEG tube placement. 8 hperkalemia plan iv fluid 0.45 saline dc kayexalae Problems: Consultation Date/Type/Reason Admit Date/Time Aug 23, 2016 at 22:10 Type of Consultation: renal 24 HR Interval Summary Subjective hx not possible: pt non-verbal Exam/Review of Systems Vital Signs Vitals Vital Signs Date Time Temp Pulse Resp B/P Pulse Ox O2 Delivery O2 Flow Rate FiO2 08/29/16 15:11 71 17 100 30 08/29/16 15:00 150/84 Mechanical Ventilator 08/29/16 12:00 97.5 Intake and Output 08/28/16 08/28/16 08/29/16 15:00 23:00 07:00 Intake Total 746.23 ml 1600 ml 740 ml Output Total 550 ml 630 ml 640 ml Balance 196.23 ml 970 ml 100 ml Exam Neck: supple Respiratory: clear to auscultation Cardiovascular: regular rate and rhythm Gastrointestinal: soft Genitourinary - Male: nl penis Musculoskeletal: nl extremities to inspection Results Result Diagram: 08/29/16 0430 08/29/16 0430 Results 24 hrs Laboratory Tests Test 08/28/16 18:26 08/28/16 19:44 08/29/16 04:30 08/29/16 05:40 Bedside Glucose 100 94 86 Anion Gap 15 Basophils # 0.0 Basophils % 0.1 Blood Morphology Comment Blood Urea Nitrogen 87 H Calcium Level 7.3 L Carbon Dioxide Level 16 L Chloride Level 126 H Creatinine 1.73 H Eosinophils # 0.2 Eosinophils % 2.5 Glucose Level 77 Hematocrit 25.3 #L Hemoglobin 8.3 #L Lymphocytes # 0.3 L Lymphocytes % 3.7 L Mean Corpuscular Hemoglobin 28.4 L Mean Corpuscular Hemoglobin Concent 33.0 Mean Corpuscular Volume 86.1 Mean Platelet Volume 12.3 H Monocytes # 0.3 Monocytes % 4.2 Neutrophils # 6.4 Neutrophils % 89.5 H Nucleated Red Blood Cells # 0.0 Nucleated Red Blood Cells % 0.0 Platelet Count 118 L Potassium Level 5.4 #H Red Blood Count 2.94 #L Red Cell Distribution Width 16.1 H Sodium Level 152 H White Blood Count 7.2 Test 08/29/16 07:00 08/29/16 07:54 08/29/16 12:58 Arterial Blood HCO3 14.6 L Arterial Blood Base Excess -10.1 L Arterial Blood Oxygen Saturation 97.3 Pedro Test ACCEPTAB Arterial Blood Gas Puncture Site Right Radial Arterial Blood Carboxyhemoglobin 0.2 Arterial Blood Date Drawn 08/29/2016 7:10:00 AM Arterial Blood Methemoglobin 0.5 Arterial Blood pCO2 (Temp correct) 28.8 L Arterial Blood pH (Temp corrected) 7.322 L Arterial Blood pO2 (Temp corrected) 115.7 H Blood Gas A-a O2 Differential 64.4 H Blood Gas Actual Respiration Rate 20 Blood Gas Low PEEP Setting 5.0 Blood Gas Modality VENT - AC Blood Gas Notified Time 08/29/2016 7:49:00 AM Blood Gas Notified Whom JLD Blood Gas Respiration Rate 16.0 Blood Gas Specimen Source Blood arterial Blood Gas Temperature 37.0 Blood Gas Tidal Volume 550.0 FiO2 30.0 Oxyhemoglobin Percent 96.6 Total Hemoglobin 11.7 L Bedside Glucose 96 94 Medications Medications Current Medications Ondansetron HCl (Zofran Inj) 4 mg Q6H PRN IV NAUSEA AND/OR VOMITING; Start 08/23 at 23:00 Morphine Sulfate (morphine) 2 mg Q4H PRN IV SEVERE PAIN LEVEL 7-10 Last administered on 08/24/16 23:58; Admin Dose 2 MG; Start 08/23/16 at 23:00 Acetaminophen (Tylenol Tab) 650 mg Q4H PRN GTB MILD PAIN LEVEL 1-3 Last administered on 08/24/16 16:15; Admin Dose 650 MG; Start 08/23/16 at 23:00 Amiodarone HCl (Cordarone) 200 mg DAILY GTB Last administered on 08/29/16 08: 15; Admin Dose 200 MG; Start 08/24/16 at 09:00 Ascorbic Acid (Vitamin C) 500 mg DAILY GTB Last administered on 08/29/16 08:16 ; Admin Dose 500 MG; Start 08/24/16 at 09:00 Bisacodyl (Dulcolax Supp) 10 mg Q24H PRN [place] PRN; Start 08/23/16 at 23:00 Chlorhexidine Gluconate (Peridex) 15 ml Q12 MM Last administered on 08/29/16 08:16; Admin Dose 15 ML; Start 08/24/16 at 09:00 Cholecalciferol (Vitamin D) 1,000 unit DAILY GTB Last administered on 08:16; Admin Dose 1,000 UNIT; Start 08/24/16 at 09:00 Eye Lubricant (Artificial Tears Oph) 2 drop BID BOTH EYES Last administered on 08/29/16 08:17; Admin Dose 2 DROP; Start 08/24/16 at 09:00 Simethicone (Mylicon) 80 mg Q12 PRN GTB DISTENSION/GAS/BLOATING; Start 08/23/16 at 23:00 Tramadol HCl (Ultram) 50 mg BID GTB Last administered on 08/29/16 08:16; Admin Dose 50 MG; Start 08/24/16 at 09:00 Zinc Sulfate (Zinc Sulfate) 220 mg DAILY GTB Last administered on 08/29/16 08: 16; Admin Dose 220 MG; Start 08/24/16 at 09:00 Lactobacillus Acidoph/Bulgaricus (Floranex) 1 tab DAILY PO Last administered on 08/29/16 08:16; Admin Dose 1 TAB; Start 08/24/16 at 11:00 Multivitamins (Thera-Plus) 5 ml DAILY GTB Last administered on 08/29/16 08:17 ; Admin Dose 5 ML; Start 08/24/16 at 09:00 Lansoprazole (Prevacid) 30 mg BID@18 GTB Last administered on 08/29/16 06: 13; Admin Dose 30 MG; Start 08/24/16 at 06:00 Ferrous Sulfate (Feosol Liquid Cup) 330 mg BID GTB Last administered on 08:17; Admin Dose 330 MG; Start 08/24/16 at 09:00 Docusate Sodium (Colace Liquid Cup) 100 mg BID GTB Last administered on 08:15; Admin Dose 100 MG; Start 08/24/16 at 09:00 Collagenase (Santyl) 1 applic DAILY TOP Last administered on 08/29/16 08:17; Admin Dose 1 APPLIC; Start 08/24/16 at 03:30 Miscellaneous Information 1 ea NOTE XX ; Start 08/24/16 at 22:00 Glucose (Glutose) 15 gm Q15M PRN PO DECREASED GLUCOSE; Start 08/24/16 at 22:00 Glucose (Glutose) 22.5 gm Q15M PRN PO DECREASED GLUCOSE; Start 08/24/16 at 22:00 Dextrose (D50w Syringe) 25 ml Q15M PRN IV DECREASED GLUCOSE; Start 08/24/16 at 22:00 Dextrose (D50w Syringe) 50 ml Q15M PRN IV DECREASED GLUCOSE; Start 08/24/16 at 22:00 Glucagon (Glucagen) 1 mg Q15M PRN IM DECREASED GLUCOSE; Start 08/24/16 at 22:00 Glucose (Glutose) 15 gm Q15M PRN BUCCAL DECREASED GLUCOSE; Start 08/24/16 at 22: 00 Insulin Aspart NOVOLOG *MODERATE* ALGORI... Q4 SC Last administered on 21:12; Admin Dose 2 UNIT; Start 08/25/16 at 09:00 Cefepime HCl (Maxipime 2gm/50 ml (Pmx)) 50 ml @ 100 mls/hr Q24H IVPB Last administered on 08/29/16 08:18; Admin Dose 100 MLS/HR; Start 08/26/16 at 09:00 Insulin Glargine 10 unit 10 unit QPM SC ; Start 08/27/16 at 21:00 Potassium Chloride/Sodium Chloride (1/2 NS + KCl 20 Meq) 1,000 ml @ 80 mls/hr [id number] IV Last administered on 08/29/16 01:34; Admin Dose 80 MLS/HR; Start at 11:30 IV Flush 10 ml 10 ml PRN PRN IV IV PROTOCOL; Start 08/28/16 at 13:30 Linezolid 300 ml @ 300 mls/hr Q12 IVPB ; Start 08/29/16 at 21:00 Levofloxacin/ Dextrose (Levaquin 500mg/ D5W 100 ml (Pmx)) 100 ml @ 100 mls/hr Q48H IVPB ; Start 08/29/16 at 14:30 PATRICIO ELIZALDE MD Aug 29, 2016 15:29
[2016-08-29] MEDS: LEVOFLOXACIN 500MG/D5W (PMX) 100 ML IVPB SCH (15:58)
[2016-08-29] MEDS: SOD CHLORIDE 0.45% 1,000 ML IV SCH (15:58)
[2016-08-29] MEDS: INSULIN GLARGINE [LANtus] 3 ML PEN SC SCH (21:00)
[2016-08-29] MEDS: LINEZOLID 600 MG/D5W (PMX) 300 ML IVPB SCH (22:03)
[2016-08-30] VITALS (24 sets, daily range): BP systolic 114–168; BP diastolic 71–99; PULSE 74–81; RESP 17–24
[2016-08-30] MEDS: INSULIN ASPART [NOVOLOG] 3 ML PEN SC SCH ×5 (01:00→17:00)
[2016-08-30] MEDS: SOD CHLORIDE 0.45% 1,000 ML IV SCH ×2 (04:30→17:00)
[2016-08-30] MEDS: LANSOPRAZOLE 30 MG CAP GTB SCH ×2 (05:44→19:10)
[2016-08-30 06:23] LABS: EOSINOPHILS # 0.1 10^3/ul (0.0-0.5); EOSINOPHILS % 1.3 % (0.0-7.0); HEMATOCRIT 26.5 % (42.0-52.0); HEMOGLOBIN 8.9 g/dl (14.0-18.0); LYMPHOCYTES # 0.4 10^3/ul (0.8-2.9); LYMPHOCYTES % 5.1 % (15.0-51.0); MEAN CORPUSCULAR HGB CONC 33.6 g/dl (32.0-37.0); MEAN CORPUSCULAR VOLUME 86.2 fl (82.0-101.0); MEAN PLATELET VOLUME 11.7 fl (7.4-10.4); MONOCYTE # 0.3 10^3/ul (0.3-0.9); MONOCYTES % 4.8 % (0.0-11.0); NEUTROPHIL # 6.4 10^3/ul (1.6-7.5); NEUTROPHILS % 88.8 % (39.0-77.0); PLATELET COUNT 156 10^3/UL (140-440); RED BLOOD COUNT 3.08 10^6/ul (4.70-6.10); RED CELL DISTRIBUTION WIDTH 16.7 % (11.5-14.5); UNCORRECTED WBC 7.2 10^3/ul (4.8-10.8); WHITE BLOOD COUNT 7.2 10^3/ul (4.8-10.8)
[2016-08-30 06:30] LABS: POTASSIUM 3.5 mmol/L (3.5-5.1)
[2016-08-30 06:32] LABS: CREATININE 1.63 mg/dl (0.61-1.24)
[2016-08-30 06:33] LABS: CONDITION 1; LH ANALYZER COMMENTS 1; MAGNESIUM 2.1 mg/dl (1.7-2.5); SUSPECT 1
[2016-08-30] MEDS: COLLAGENASE 30 GM TUBE TOP SCH ×2 (09:00→10:59)
[2016-08-30] MEDS: DOCUSATE SODIUM 10 MG/ML (10ML CUP) GTB SCH ×2 (10:11→20:28)
[2016-08-30] MEDS: LACTOBACILLUS CHEW TAB PO SCH (10:12)
[2016-08-30] MEDS: ARTIFICIAL TEARS 15 ML OPH BOTH EYES SCH ×2 (10:12→20:32)
[2016-08-30] MEDS: CHOLECALCIFEROL 1,000 UNIT TAB GTB SCH (10:13)
[2016-08-30] MEDS: ASCORBIC ACID 500 MG TAB GTB SCH (10:13)
[2016-08-30] MEDS: FERROUS SULFATE 60 MG/ML 5ML CUP GTB SCH ×2 (10:13→20:29)
[2016-08-30] MEDS: LINEZOLID 600 MG/D5W (PMX) 300 ML IVPB SCH ×2 (10:14→20:28)
[2016-08-30] MEDS: MULTIVITAMINS 5 ML CUP GTB SCH (10:14)
[2016-08-30] MEDS: CHLORHEXIDINE GLUCONATE 15 ML UD CUP MM SCH ×2 (10:15→20:32)
[2016-08-30] MEDS: ZINC SULFATE 220 MG CAP GTB SCH (10:15)
[2016-08-30] MEDS: traMADol 50 MG TAB GTB SCH ×2 (10:29→21:21)
[2016-08-30] MEDS: AMIODARONE 200 MG TAB GTB SCH (10:32)
[2016-08-30] MEDS: CEFEPIME 2GM/50 ML (PMX) 50 ML IVPB SCH (12:26)
--- NOTE | 2016-08-30 14:10 | CONS ---
Date/Time of Note Date/Time of Note DATE: 08/30/16 TIME: 14:09 Assessment/Plan Assessment/Plan Chief Complaint/Hosp Course 1. Acute hypernatremia 2. Acute kidney injury on chronic kidney disease secondary to previous ischemic acute tubular necrosis from severe prerenal azotemia. 3. Severe prerenal azotemia 4. Sepsis secondary to urinary tract infection. 5. History of recent admission. 6. 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 7. Chronic respiratory failure, status post tracheostomy and status post PEG tube placement. 8 hperkalemia plan iv fluid iv d5 w0.2 saline Problems: Consultation Date/Type/Reason Admit Date/Time Aug 23, 2016 at 22:10 Type of Consultation: renal 24 HR Interval Summary Subjective hx not possible: pt non-verbal Exam/Review of Systems Vital Signs Vitals Vital Signs Date Time Temp Pulse Resp B/P Pulse Ox O2 Delivery O2 Flow Rate FiO2 08/30/16 12:26 81 08/30/16 11:51 98.9 19 163/91 100 08/30/16 11:10 30 08/29/16 17:59 Mechanical Ventilator Intake and Output 08/29/16 08/29/16 08/30/16 15:00 23:00 07:00 Intake Total 370 ml 300 ml 780 ml Output Total 600 ml 9102 ml 850 ml Balance -230 ml -8802 ml -70 ml Exam Neck: supple Respiratory: clear to auscultation Cardiovascular: regular rate and rhythm Gastrointestinal: soft Musculoskeletal: nl extremities to inspection Results Result Diagram: 08/30/16 0543 08/30/16 0543 Results 24 hrs Laboratory Tests Test 08/29/16 18:04 08/29/16 22:01 08/30/16 02:35 08/30/16 05:40 Bedside Glucose 105 93 110 99 Test 08/30/16 05:43 08/30/16 08:01 08/30/16 13:22 Anion Gap 20 H Basophils # 0.0 Basophils % 0.0 Blood Morphology Comment Blood Urea Nitrogen 80 H Calcium Level 8.0 L Carbon Dioxide Level 15 L Chloride Level 127 H Creatinine 1.63 H Eosinophils # 0.1 Eosinophils % 1.3 Glucose Level 83 Hematocrit 26.5 L Hemoglobin 8.9 L Lymphocytes # 0.4 L Lymphocytes % 5.1 L Magnesium Level 2.1 Mean Corpuscular Hemoglobin 29.0 Mean Corpuscular Hemoglobin Concent 33.6 Mean Corpuscular Volume 86.2 Mean Platelet Volume 11.7 H Monocytes # 0.3 Monocytes % 4.8 Neutrophils # 6.4 Neutrophils % 88.8 H Nucleated Red Blood Cells # 0.0 Nucleated Red Blood Cells % 0.0 Platelet Count 156 # Potassium Level 3.5 Red Blood Count 3.08 L Red Cell Distribution Width 16.7 H Sodium Level 158 H White Blood Count 7.2 Bedside Glucose 91 114 Medications Medications Current Medications Ondansetron HCl (Zofran Inj) 4 mg Q6H PRN IV NAUSEA AND/OR VOMITING; Start 08/23 at 23:00 Morphine Sulfate (morphine) 2 mg Q4H PRN IV SEVERE PAIN LEVEL 7-10 Last administered on 08/24/16 23:58; Admin Dose 2 MG; Start 08/23/16 at 23:00 Acetaminophen (Tylenol Tab) 650 mg Q4H PRN GTB MILD PAIN LEVEL 1-3 Last administered on 08/24/16 16:15; Admin Dose 650 MG; Start 08/23/16 at 23:00 Amiodarone HCl (Cordarone) 200 mg DAILY GTB Last administered on 08/30/16 10: 32; Admin Dose 200 MG; Start 08/24/16 at 09:00 Ascorbic Acid (Vitamin C) 500 mg DAILY GTB Last administered on 08/30/16 10:13 ; Admin Dose 500 MG; Start 08/24/16 at 09:00 Bisacodyl (Dulcolax Supp) 10 mg Q24H PRN [place] PRN; Start 08/23/16 at 23:00 Chlorhexidine Gluconate (Peridex) 15 ml Q12 MM Last administered on 08/30/16 10:15; Admin Dose 15 ML; Start 08/24/16 at 09:00 Cholecalciferol (Vitamin D) 1,000 unit DAILY GTB Last administered on 10:13; Admin Dose 1,000 UNIT; Start 08/24/16 at 09:00 Eye Lubricant (Artificial Tears Oph) 2 drop BID BOTH EYES Last administered on 08/30/16 10:12; Admin Dose 2 DROP; Start 08/24/16 at 09:00 Simethicone (Mylicon) 80 mg Q12 PRN GTB DISTENSION/GAS/BLOATING; Start 08/23/16 at 23:00 Tramadol HCl (Ultram) 50 mg BID GTB Last administered on 08/30/16 10:29; Admin Dose 50 MG; Start 08/24/16 at 09:00 Zinc Sulfate (Zinc Sulfate) 220 mg DAILY GTB Last administered on 08/30/16 10: 15; Admin Dose 220 MG; Start 08/24/16 at 09:00 Lactobacillus Acidoph/Bulgaricus (Floranex) 1 tab DAILY PO Last administered on 08/30/16 10:12; Admin Dose 1 TAB; Start 08/24/16 at 11:00 Multivitamins (Thera-Plus) 5 ml DAILY GTB Last administered on 08/30/16 10:14 ; Admin Dose 5 ML; Start 08/24/16 at 09:00 Lansoprazole (Prevacid) 30 mg BID@,18 GTB Last administered on 08/30/16 05: 44; Admin Dose 30 MG; Start 08/24/16 at 06:00 Ferrous Sulfate (Feosol Liquid Cup) 330 mg BID GTB Last administered on 10:13; Admin Dose 330 MG; Start 08/24/16 at 09:00 Docusate Sodium (Colace Liquid Cup) 100 mg BID GTB Last administered on 10:11; Admin Dose 100 MG; Start 08/24/16 at 09:00 Collagenase (Santyl) 1 applic DAILY TOP Last administered on 08/29/16 08:17; Admin Dose 1 APPLIC; Start 08/24/16 at 03:30 Miscellaneous Information 1 ea NOTE XX ; Start 08/24/16 at 22:00 Glucose (Glutose) 15 gm Q15M PRN PO DECREASED GLUCOSE; Start 08/24/16 at 22:00 Glucose (Glutose) 22.5 gm Q15M PRN PO DECREASED GLUCOSE; Start 08/24/16 at 22:00 Dextrose (D50w Syringe) 25 ml Q15M PRN IV DECREASED GLUCOSE; Start 08/24/16 at 22:00 Dextrose (D50w Syringe) 50 ml Q15M PRN IV DECREASED GLUCOSE; Start 08/24/16 at 22:00 Glucagon (Glucagen) 1 mg Q15M PRN IM DECREASED GLUCOSE; Start 1/7/17 at 22:00 Glucose (Glutose) 15 gm Q15M PRN BUCCAL DECREASED GLUCOSE; Start 08/24/16 at 22: 00 Insulin Aspart NOVOLOG *MODERATE* ALGORI... Q4 SC Last administered on 21:12; Admin Dose 2 UNIT; Start 08/25/16 at 09:00 Cefepime HCl (Maxipime 2gm/50 ml (Pmx)) 50 ml @ 100 mls/hr Q24H IVPB Last administered on 08/30/16 12:26; Admin Dose 100 MLS/HR; Start 08/26/16 at 09:00 Insulin Glargine (Lantus) 10 unit QPM SC ; Start 08/27/16 at 21:00 IV Flush 10 ml 10 ml PRN PRN IV IV PROTOCOL; Start 08/28/16 at 13:30 Linezolid 300 ml @ 300 mls/hr Q12 IVPB Last administered on 08/30/16 10:14; Admin Dose 300 MLS/HR; Start 08/29/16 at 21:00 Levofloxacin/ Dextrose 100 ml @ 100 mls/hr Q48H IVPB Last administered on 08/29 15:58; Admin Dose 100 MLS/HR; Start 08/29/16 at 14:30 Sodium Chloride (1/2 NS) 1,000 ml @ 80 mls/hr [id number] IV Last administered on 08/30/16 04:30; Admin Dose 80 MLS/HR; Start 08/29/16 at 16:00 Collagenase (Santyl) 1 applic DAILY TOP Last administered on 08/30/16 10:59; Admin Dose 1 APPLIC; Start 08/30/16 at 09:00 PATRICIO ELIZALDE MD Aug 30, 2016 14:10
--- NOTE | 2016-08-30 14:43 | PN ---
Date/Time of Note Date/Time of Note DATE: 08/30/16 TIME: 14:41 Assessment/Plan VTE Prophylaxis VTE Prophylaxis Intervention: SCD's Lines/Catheters IV Catheter Type (from Nrs): PICC Line Central line still needed: Yes Urinary Cath still in place: Yes Reason Cath still needed: urinary retention Assessment/Plan Chief Complaint/Hosp Course Assessment and plan: 1. Sepsis, likely secondary to urinary tract infection, line sepsis and severe dehydration Continue sepsis protocol, aggressive IV fluid, pressors, broad-spectrum IV antibiotics Infectious disease and food supervisor been consulted We will attempt triple lumen central venous catheter insertion today and then remove PICC line 2. Urinary tract infection, Continue broad-spectrum IV antibiotics, follow urine culture and sensitivity 3. Acute renal failure, likely secondary to severe dehydration Continue IV fluids, nephrology has been consulted follow-up renal panel in a.m. 4. Severe hypernatremia, likely secondary to severe dehydration, improving Continue D5W, follow-up renal panel and electrolytes in a.m. Nephrology has been consulted 5. Hypokalemia, Repleted 6. Transaminitis, Likely secondary to severe dehydration, caution with hepatotoxic medication Follow-up liver function tests in a.m. 7. Diabetic mellitus, better controlled Continue insulin sliding scale, continue Lantus, restart diabeticsource 8. Sacral decubitus, with evidence of lower extremity decubitus as well Wound care consulted 9. Anemia, Continue iron supplementations, will transfuse PRBC if hemoglobin is less than 7.5 Status post transfusion of total 3 unit packed red blood cell Follow-up CBC in a.m. 10. PEG tube dysfunction, will obtain GI consultation 11. Feeding, at this time will hold tube feeding secondary to PEG tube dysfunction Condition: Guarded We will continue monitor patient closely for recommendation management treatment as clinical course Transferred to telemetry floor Plan to transfer to care home facility after PEG tube replacement Problems: Subjective 24 Hr Interval Summary Free Text/Dictation No acute changes Vitals are stable Exam/Review of Systems Vital Signs Vitals Vital Signs Date Time Temp Pulse Resp B/P Pulse Ox O2 Delivery O2 Flow Rate FiO2 08/30/16 13:00 88 20 99 30 08/30/16 11:51 98.9 163/91 08/29/16 17:59 Mechanical Ventilator Intake and Output 08/29/16 08/29/16 08/30/16 14:59 22:59 06:59 Intake Total 450 ml 1080 ml Output Total 570 ml 9202 ml 850 ml Balance -120 ml -9202 ml 230 ml Exam General: The patient is cachectic, HEENT: Atraumatic, normocephalic. The pupils are symmetric, decubitus ulcer bilateral earlobes Neck: Trach in place Chest: Normal Lungs: Decreased breath sounds bilateral lower lung field Heart: Normal S1-S2, Regular rhythm and rate. Abdomen: Soft , nontender, nondistended , bowel sounds are present. PEG tube site leaking, erythema around PEG tube site Extremities: Nonpitting edema bilateral lower extremity, bilateral lower extremities flaccid, decubitus ulcer bilateral lower extremities Neurologic: Patient is awake , minimal respond to pain or verbal stimuli Results Result Diagram: 08/30/16 0543 08/30/16 0543 Results 24 hrs Laboratory Tests Test 08/29/16 18:04 08/29/16 22:01 08/30/16 02:35 08/30/16 05:40 Bedside Glucose 105 93 110 99 Test 08/30/16 05:43 08/30/16 08:01 08/30/16 13:22 Anion Gap 20 H Basophils # 0.0 Basophils % 0.0 Blood Morphology Comment Blood Urea Nitrogen 80 H Calcium Level 8.0 L Carbon Dioxide Level 15 L Chloride Level 127 H Creatinine 1.63 H Eosinophils # 0.1 Eosinophils % 1.3 Glucose Level 83 Hematocrit 26.5 L Hemoglobin 8.9 L Lymphocytes # 0.4 L Lymphocytes % 5.1 L Magnesium Level 2.1 Mean Corpuscular Hemoglobin 29.0 Mean Corpuscular Hemoglobin Concent 33.6 Mean Corpuscular Volume 86.2 Mean Platelet Volume 11.7 H Monocytes # 0.3 Monocytes % 4.8 Neutrophils # 6.4 Neutrophils % 88.8 H Nucleated Red Blood Cells # 0.0 Nucleated Red Blood Cells % 0.0 Platelet Count 156 # Potassium Level 3.5 Red Blood Count 3.08 L Red Cell Distribution Width 16.7 H Sodium Level 158 H White Blood Count 7.2 Bedside Glucose 91 114 Medications Medications Current Medications Ondansetron HCl (Zofran Inj) 4 mg Q6H PRN IV NAUSEA AND/OR VOMITING; Start 08/23 at 23:00 Morphine Sulfate (morphine) 2 mg Q4H PRN IV SEVERE PAIN LEVEL 7-10 Last administered on 08/24/16 23:58; Admin Dose 2 MG; Start 08/23/16 at 23:00 Acetaminophen (Tylenol Tab) 650 mg Q4H PRN GTB MILD PAIN LEVEL 1-3 Last administered on 08/24/16 16:15; Admin Dose 650 MG; Start 08/23/16 at 23:00 Amiodarone HCl (Cordarone) 200 mg DAILY GTB Last administered on 08/30/16 10: 32; Admin Dose 200 MG; Start 08/24/16 at 09:00 Ascorbic Acid (Vitamin C) 500 mg DAILY GTB Last administered on 08/30/16 10:13 ; Admin Dose 500 MG; Start 08/24/16 at 09:00 Bisacodyl (Dulcolax Supp) 10 mg Q24H PRN [place] PRN; Start 08/23/16 at 23:00 Chlorhexidine Gluconate (Peridex) 15 ml Q12 MM Last administered on 08/30/16 10:15; Admin Dose 15 ML; Start 08/24/16 at 09:00 Cholecalciferol (Vitamin D) 1,000 unit DAILY GTB Last administered on 10:13; Admin Dose 1,000 UNIT; Start 08/24/16 at 09:00 Eye Lubricant (Artificial Tears Oph) 2 drop BID BOTH EYES Last administered on 08/30/16 10:12; Admin Dose 2 DROP; Start 08/24/16 at 09:00 Simethicone (Mylicon) 80 mg Q12 PRN GTB DISTENSION/GAS/BLOATING; Start 08/23/16 at 23:00 Tramadol HCl (Ultram) 50 mg BID GTB Last administered on 08/30/16 10:29; Admin Dose 50 MG; Start 08/24/16 at 09:00 Zinc Sulfate (Zinc Sulfate) 220 mg DAILY GTB Last administered on 08/30/16 10: 15; Admin Dose 220 MG; Start 08/24/16 at 09:00 Lactobacillus Acidoph/Bulgaricus (Floranex) 1 tab DAILY PO Last administered on 08/30/16 10:12; Admin Dose 1 TAB; Start 08/24/16 at 11:00 Multivitamins (Thera-Plus) 5 ml DAILY GTB Last administered on 08/30/16 10:14 ; Admin Dose 5 ML; Start 08/24/16 at 09:00 Lansoprazole (Prevacid) 30 mg BID@06,18 GTB Last administered on 08/30/16 05: 44; Admin Dose 30 MG; Start 08/24/16 at 06:00 Ferrous Sulfate (Feosol Liquid Cup) 330 mg BID GTB Last administered on 10:13; Admin Dose 330 MG; Start 08/24/16 at 09:00 Docusate Sodium (Colace Liquid Cup) 100 mg BID GTB Last administered on 10:11; Admin Dose 100 MG; Start 08/24/16 at 09:00 Collagenase (Santyl) 1 applic DAILY TOP Last administered on 08/29/16 08:17; Admin Dose 1 APPLIC; Start 08/24/16 at 03:30 Miscellaneous Information 1 ea NOTE XX ; Start 08/24/16 at 22:00 Glucose (Glutose) 15 gm Q15M PRN PO DECREASED GLUCOSE; Start 08/24/16 at 22:00 Glucose (Glutose) 22.5 gm Q15M PRN PO DECREASED GLUCOSE; Start 08/24/16 at 22:00 Dextrose (D50w Syringe) 25 ml Q15M PRN IV DECREASED GLUCOSE; Start 08/24/16 at 22:00 Dextrose (D50w Syringe) 50 ml Q15M PRN IV DECREASED GLUCOSE; Start 08/24/16 at 22:00 Glucagon (Glucagen) 1 mg Q15M PRN IM DECREASED GLUCOSE; Start 08/24/16 at 22:00 Glucose (Glutose) 15 gm Q15M PRN BUCCAL DECREASED GLUCOSE; Start 08/24/16 at 22: 00 Insulin Aspart NOVOLOG *MODERATE* ALGORI... Q4 SC Last administered on 21:12; Admin Dose 2 UNIT; Start 08/25/16 at 09:00 Cefepime HCl (Maxipime 2gm/50 ml (Pmx)) 50 ml @ 100 mls/hr Q24H IVPB Last administered on 08/30/16 12:26; Admin Dose 100 MLS/HR; Start 08/26/16 at 09:00 Insulin Glargine (Lantus) 10 unit QPM SC ; Start 08/27/16 at 21:00 IV Flush 10 ml 10 ml PRN PRN IV IV PROTOCOL; Start 08/28/16 at 13:30 Linezolid 300 ml @ 300 mls/hr Q12 IVPB Last administered on 08/30/16 10:14; Admin Dose 300 MLS/HR; Start 08/29/16 at 21:00 Levofloxacin/ Dextrose 100 ml @ 100 mls/hr Q48H IVPB Last administered on 08/29 15:58; Admin Dose 100 MLS/HR; Start 08/29/16 at 14:30 Sodium Chloride (1/2 NS) 1,000 ml @ 80 mls/hr [id number] IV Last administered on 08/30/16 04:30; Admin Dose 80 MLS/HR; Start 08/29/16 at 16:00 Collagenase 1 applic 1 applic DAILY TOP Last administered on 08/30/16 10:59; Admin Dose 1 APPLIC; Start 08/30/16 at 09:00 Potassium Chloride/Dextrose/ Sodium Chloride (KCl/D5-1/4ns) 1,005 ml @ 60 mls/ hr [id number] IV ; Start 08/30/16 at 16:00 IAM GÓMEZ MD Aug 30, 2016 14:43
--- NOTE | 2016-08-30 15:04 | PDOCDIS ---
Discharge Instructions CONDITION Patient Condition: Guarded HOME CARE INSTRUCTIONS: Special Diet: NG tube feeeding x 2 weeks FOLLOW UP/APPOINTMENTS Appointments Follow up with GI as out-pt in 2 weeks for PEG tube replacement IAM GÓMEZ MD Aug 30, 2016 15:03
[2016-08-30] MEDS ORDERED: LANT3I SC (15:05)
--- NOTE | 2016-08-30 15:14 | PN ---
DATE: 08/30/2016 PULMONARY FOLLOWUP SUBJECTIVE: Chart reviewed. Events noted. Patient remains on the ventilator, currently on 30% FIO 2, saturating 100%. PHYSICAL EXAMINATION: VITAL SIGNS: Blood pressure 163/91, pulse 87, respirations 19, temperature 98.9. HEENT: Pupils are equal and reactive to light. NECK: Supple. No JVD noted, no cervical adenopathy noted, no carotid bruits heard. LUNGS: Few scattered rhonchi. CARDIOVASCULAR: S1, S2 normal. ABDOMEN: Soft, nontender. No organomegaly or masses noted. EXTREMITIES: No clubbing or cyanosis noted. NEUROLOGIC: No changes. LABORATORY: WBC 7.2, hemoglobin 8.9, hematocrit 26.5, platelets 156. Sodium 158, potassium 3.5, ch loride 127, CO2 15, BUN 80, creatinine 1.63, glucose 83. ABG yesterday showed a pH of 7.32, pCO2 of 29, pO2 of 116. IMPRESSION: 1. Ventilator-dependent respiratory failure, hypoxemic. 2. Sepsis. 3. Urinary tract infection. 4. Likely ventilator-associated pneumonia versus aspiration. 5. Chronic encephalopathy. 6. Acute kidney injury. RECOMMENDATIONS: 1. Continue ventilator support. 2. Antibiotics per ID recommendations. 3. Nephrology noted. 4. Free water supplementation. 5. Follow up labs. 6. Prognosis is still guarded. Dictated By: JOSE METZ MD, MA/LESLY Conf#: [id number] DID#: [id number]
[2016-08-30] MEDS: POTASSIUM CHLORIDE 10 MEQ in DEXTROSE 5%-0.225% NACL 1,000 ML IV SCH (18:57)
[2016-08-30] MEDS: INSULIN GLARGINE [LANtus] 3 ML PEN SC SCH (21:00)
[2016-08-31] VITALS (25 sets, daily range): BP systolic 126–180; BP diastolic 65–97; PULSE 73–85; RESP 16–22
[2016-08-31] MEDS: SOD CHLORIDE 0.45% 1,000 ML IV SCH ×2 (05:30→20:00)
[2016-08-31] MEDS: LANSOPRAZOLE 30 MG CAP GTB SCH ×2 (05:45→21:30)
[2016-08-31] MEDS: INSULIN ASPART [NOVOLOG] 3 ML PEN SC SCH ×4 (05:46→21:00)
[2016-08-31] MEDS: COLLAGENASE 30 GM TUBE TOP SCH ×2 (09:00→11:05)
[2016-08-31] MEDS: DOCUSATE SODIUM 10 MG/ML (10ML CUP) GTB SCH ×2 (09:00→21:13)
--- NOTE | 2016-08-31 10:53 | CONS ---
Date/Time of Note Date/Time of Note DATE: 08/31/16 TIME: 10:53 Assessment/Plan Assessment/Plan Chief Complaint/Hosp Course ID PROGRESS NOTE TOTAL ABX DAY # => Zyvox #2, Levaquin #2, Cefepime 24H INTERVAL SUMMARY * Frail, thin, chronic debilitated 70 yo M, Vented, somnolent * No fevers, VSS, appears comfortable, Trach-> Vented PHYSICAL EXAMINATION: GENERAL: 70 yo M w/chronic encephalopathy, VDRF HEENT: Unremarkable NECK: Supple, trachea midline. CHEST: Rise symmetrical= Vented HEART: RRR ABDOMEN: Soft= Colostomy bag EXTREMITIES: Warm SKIN: Decubs, unstageable ID ASSESSMENT: 70 yo M 1. s/p Severe sepsis with shock= resolving 2. Methicillin-resistant Staphylococcus aureus bacteremia => PICC Line removed 3. Unstageable sacral wound with culture growing methicillin-resistant Staphylococcus aureus, vancomycin-resistant enterococcus Klebsiella pneumoniae and Proteus mirabilis. 4. Polymicrobial urinary tract infection. 7. Healthcare-associated pneumonia. 8. Transaminitis. 9. Acute renal failure. INVASIVES: * Trach, PICC CURRENT ABX: DAY # => Zyvox #2, Levaquin #2, Cefepime s/p Vanco IV ID RECOMMENDATIONS: CONTINUE Current ABX-> Await clinical improvement PICC Line DC'd w/new PICC in place . . Problems: Consultation Date/Type/Reason Admit Date/Time Aug 23, 2016 at 22:10 Initial Consult Date Type of Consultation: ID Exam/Review of Systems Vital Signs Vitals Vital Signs Date Time Temp Pulse Resp B/P Pulse Ox O2 Delivery O2 Flow Rate FiO2 08/31/16 09:15 77 20 100 30 08/31/16 07:50 98.1 133/78 08/30/16 20:00 Mechanical Ventilator Intake and Output 08/30/16 08/30/16 08/31/16 15:00 23:00 07:00 Intake Total 300 ml 1100 ml Output Total 1100 ml 800 ml Balance -800 ml 300 ml Results Result Diagram: 08/30/16 0543 08/30/16 0543 Results 24 hrs Laboratory Tests Test 08/30/16 13:22 08/30/16 16:35 08/30/16 19:06 08/30/16 20:00 Bedside Glucose 114 97 Osmolality 326 H Urine Osmolality 410 Urine Random Sodium 78 Test 08/30/16 20:26 08/31/16 00:45 08/31/16 05:44 Bedside Glucose 89 108 113 Medications Medications Current Medications Ondansetron HCl (Zofran Inj) 4 mg Q6H PRN IV NAUSEA AND/OR VOMITING; Start 08/23 at 23:00 Morphine Sulfate (morphine) 2 mg Q4H PRN IV SEVERE PAIN LEVEL 7-10 Last administered on 08/24/16 23:58; Admin Dose 2 MG; Start 08/23/16 at 23:00 Acetaminophen (Tylenol Tab) 650 mg Q4H PRN GTB MILD PAIN LEVEL 1-3 Last administered on 08/24/16 16:15; Admin Dose 650 MG; Start 08/23/16 at 23:00 Amiodarone HCl (Cordarone) 200 mg DAILY GTB Last administered on 08/30/16 10: 32; Admin Dose 200 MG; Start 08/24/16 at 09:00 Ascorbic Acid (Vitamin C) 500 mg DAILY GTB Last administered on 08/30/16 10:13 ; Admin Dose 500 MG; Start 08/24/16 at 09:00 Bisacodyl (Dulcolax Supp) 10 mg Q24H PRN [place] PRN; Start 08/23/16 at 23:00 Chlorhexidine Gluconate (Peridex) 15 ml Q12 MM Last administered on 08/30/16 20:32; Admin Dose 15 ML; Start 08/24/16 at 09:00 Cholecalciferol (Vitamin D) 1,000 unit DAILY GTB Last administered on 10:13; Admin Dose 1,000 UNIT; Start 08/24/16 at 09:00 Eye Lubricant (Artificial Tears Oph) 2 drop BID BOTH EYES Last administered on 08/30/16 20:32; Admin Dose 2 DROP; Start 08/24/16 at 09:00 Simethicone (Mylicon) 80 mg Q12 PRN GTB DISTENSION/GAS/BLOATING; Start 08/23/16 at 23:00 Tramadol HCl (Ultram) 50 mg BID GTB Last administered on 08/30/16 21:21; Admin Dose 50 MG; Start 08/24/16 at 09:00 Zinc Sulfate (Zinc Sulfate) 220 mg DAILY GTB Last administered on 08/30/16 10: 15; Admin Dose 220 MG; Start 08/24/16 at 09:00 Lactobacillus Acidoph/Bulgaricus (Floranex) 1 tab DAILY PO Last administered on 08/30/16 10:12; Admin Dose 1 TAB; Start 08/24/16 at 11:00 Multivitamins (Thera-Plus) 5 ml DAILY GTB Last administered on 08/30/16 10:14 ; Admin Dose 5 ML; Start 08/24/16 at 09:00 Lansoprazole (Prevacid) 30 mg BID@06,18 GTB Last administered on 08/31/16 05: 45; Admin Dose 30 MG; Start 08/24/16 at 06:00 Ferrous Sulfate (Feosol Liquid Cup) 330 mg BID GTB Last administered on 20:29; Admin Dose 330 MG; Start 08/24/16 at 09:00 Docusate Sodium (Colace Liquid Cup) 100 mg BID GTB Last administered on 20:28; Admin Dose 100 MG; Start 08/24/16 at 09:00 Collagenase (Santyl) 1 applic DAILY TOP Last administered on 08/29/16 08:17; Admin Dose 1 APPLIC; Start 08/24/16 at 03:30 Miscellaneous Information 1 ea NOTE XX ; Start 08/24/16 at 22:00 Glucose (Glutose) 15 gm Q15M PRN PO DECREASED GLUCOSE; Start 08/24/16 at 22:00 Glucose (Glutose) 22.5 gm Q15M PRN PO DECREASED GLUCOSE; Start 08/24/16 at 22:00 Dextrose (D50w Syringe) 25 ml Q15M PRN IV DECREASED GLUCOSE; Start 08/24/16 at 22:00 Dextrose (D50w Syringe) 50 ml Q15M PRN IV DECREASED GLUCOSE; Start 08/24/16 at 22:00 Glucagon (Glucagen) 1 mg Q15M PRN IM DECREASED GLUCOSE; Start 08/24/16 at 22:00 Glucose 15 gm 15 gm Q15M PRN BUCCAL DECREASED GLUCOSE; Start 08/24/16 at 22:00 Cefepime HCl (Maxipime 2gm/50 ml (Pmx)) 50 ml @ 100 mls/hr Q24H IVPB Last administered on 1/13/17at 12:26; Admin Dose 100 MLS/HR; Start 08/26/16 at 09:00 Insulin Glargine (Lantus) 10 unit QPM SC ; Start 08/27/16 at 21:00 IV Flush 10 ml 10 ml PRN PRN IV IV PROTOCOL; Start 08/28/16 at 13:30 Linezolid 300 ml @ 300 mls/hr Q12 IVPB Last administered on 08/30/16 20:28; Admin Dose 300 MLS/HR; Start 08/29/16 at 21:00 Levofloxacin/ Dextrose 100 ml @ 100 mls/hr Q48H IVPB Last administered on 08/29 15:58; Admin Dose 100 MLS/HR; Start 08/29/16 at 14:30 Sodium Chloride (1/2 NS) 1,000 ml @ 80 mls/hr [id number] IV Last administered on 08/30/16 04:30; Admin Dose 80 MLS/HR; Start 08/29/16 at 16:00 Collagenase 1 applic 1 applic DAILY TOP Last administered on 08/30/16 10:59; Admin Dose 1 APPLIC; Start 08/30/16 at 09:00 Potassium Chloride/Dextrose/ Sodium Chloride (KCl/D5-1/4ns) 1,005 ml @ 60 mls/ hr [id number] IV Last administered on 08/30/16 18:57; Admin Dose 60 MLS/HR; Start 08/30/16 at 16:00 Insulin Aspart (Novolog Insulin Pen) NOVOLOG *MILD* ALGORI... Q6 SC ; Start at 00:00 ERIC LIN NP Aug 31, 2016 10:53
[2016-08-31] MEDS: ASCORBIC ACID 500 MG TAB GTB SCH (11:01)
[2016-08-31] MEDS: CHLORHEXIDINE GLUCONATE 15 ML UD CUP MM SCH ×2 (11:01→21:13)
[2016-08-31] MEDS: CHOLECALCIFEROL 1,000 UNIT TAB GTB SCH (11:01)
[2016-08-31] MEDS: LINEZOLID 600 MG/D5W (PMX) 300 ML IVPB SCH ×2 (11:02→21:14)
[2016-08-31] MEDS: CEFEPIME 2GM/50 ML (PMX) 50 ML IVPB SCH (11:02)
[2016-08-31] MEDS: LACTOBACILLUS CHEW TAB PO SCH (11:02)
[2016-08-31] MEDS: traMADol 50 MG TAB GTB SCH ×2 (11:02→21:14)
[2016-08-31] MEDS: ZINC SULFATE 220 MG CAP GTB SCH (11:02)
[2016-08-31] MEDS: AMIODARONE 200 MG TAB GTB SCH (11:03)
[2016-08-31] MEDS: MULTIVITAMINS 5 ML CUP GTB SCH (11:03)
[2016-08-31] MEDS: FERROUS SULFATE 60 MG/ML 5ML CUP GTB SCH ×2 (11:04→21:13)
[2016-08-31] MEDS: ARTIFICIAL TEARS 15 ML OPH BOTH EYES SCH ×2 (11:08→21:14)
--- NOTE | 2016-08-31 12:45 | CONS ---
Date/Time of Note Date/Time of Note DATE: 08/31/16 TIME: 12:44 Consult Date/Type/Reason Admit Date/Time Aug 23, 2016 at 22:10 Type of Consultation: pulmonary Subjective Patient remains stable continues mechanical ventilation largely somnolent Objective Vital Signs Date Time Temp Pulse Resp B/P Pulse Ox O2 Delivery O2 Flow Rate FiO2 08/31/16 11:23 98.6 81 20 135/89 93 08/31/16 09:15 30 08/30/16 20:00 Mechanical Ventilator Intake and Output 08/30/16 08/30/16 08/31/16 15:00 23:00 07:00 Intake Total 300 ml 1100 ml Output Total 1100 ml 800 ml Balance -800 ml 300 ml PHYSICAL EXAMINATION GENERAL: Elderly gentleman, chronically ill-appearing on mechanical ventilation VITAL SIGNS: see below. HEENT: Pupils equal, round, and reactive to light. Tracheostomy site clean and intact. CARDIAC: S1, S2, tachycardia. CHEST: Diminished air entry bilaterally. ABDOMEN: Mildly distended. Decreased bowel sounds. Colostomy bag over G-tube site EXTREMITIES: No cyanosis, clubbing edema +1. NEUROLOGIC: Generalized weakness unable to assess Results/Medications Result Diagram: 08/30/16 0543 08/30/16 0543 Results 24 hrs Laboratory Tests Test 08/30/16 13:22 08/30/16 16:35 08/30/16 19:06 08/30/16 20:00 Bedside Glucose 114 97 Osmolality 326 H Urine Osmolality 410 Urine Random Sodium 78 Test 08/30/16 20:26 08/31/16 00:45 08/31/16 05:44 08/31/16 10:55 Bedside Glucose 89 108 113 103 Medications Current Medications Ondansetron HCl (Zofran Inj) 4 mg Q6H PRN IV NAUSEA AND/OR VOMITING; Start 08/23 at 23:00 Morphine Sulfate (morphine) 2 mg Q4H PRN IV SEVERE PAIN LEVEL 7-10 Last administered on 08/24/16 23:58; Admin Dose 2 MG; Start 08/23/16 at 23:00 Acetaminophen (Tylenol Tab) 650 mg Q4H PRN GTB MILD PAIN LEVEL 1-3 Last administered on 08/24/16 16:15; Admin Dose 650 MG; Start 08/23/16 at 23:00 Amiodarone HCl (Cordarone) 200 mg DAILY GTB Last administered on 08/31/16 11: 03; Admin Dose 200 MG; Start 08/24/16 at 09:00 Ascorbic Acid (Vitamin C) 500 mg DAILY GTB Last administered on 08/31/16 11:01 ; Admin Dose 500 MG; Start 08/24/16 at 09:00 Bisacodyl (Dulcolax Supp) 10 mg Q24H PRN [place] PRN; Start 08/23/16 at 23:00 Chlorhexidine Gluconate (Peridex) 15 ml Q12 MM Last administered on 08/31/16 11:01; Admin Dose 15 ML; Start 08/24/16 at 09:00 Cholecalciferol (Vitamin D) 1,000 unit DAILY GTB Last administered on 11:01; Admin Dose 1,000 UNIT; Start 08/24/16 at 09:00 Eye Lubricant (Artificial Tears Oph) 2 drop BID BOTH EYES Last administered on 08/31/16 11:08; Admin Dose 2 DROP; Start 08/24/16 at 09:00 Simethicone (Mylicon) 80 mg Q12 PRN GTB DISTENSION/GAS/BLOATING; Start 08/23/16 at 23:00 Tramadol HCl (Ultram) 50 mg BID GTB Last administered on 08/31/16 11:02; Admin Dose 50 MG; Start 08/24/16 at 09:00 Zinc Sulfate (Zinc Sulfate) 220 mg DAILY GTB Last administered on 08/31/16 11: 02; Admin Dose 220 MG; Start 08/24/16 at 09:00 Lactobacillus Acidoph/Bulgaricus (Floranex) 1 tab DAILY PO Last administered on 08/31/16 11:02; Admin Dose 1 TAB; Start 08/24/16 at 11:00 Multivitamins (Thera-Plus) 5 ml DAILY GTB Last administered on 08/31/16 11:03 ; Admin Dose 5 ML; Start 08/24/16 at 09:00 Lansoprazole (Prevacid) 30 mg BID@,18 GTB Last administered on 08/31/16 05: 45; Admin Dose 30 MG; Start 08/24/16 at 06:00 Ferrous Sulfate (Feosol Liquid Cup) 330 mg BID GTB Last administered on 11:04; Admin Dose 330 MG; Start 08/24/16 at 09:00 Docusate Sodium (Colace Liquid Cup) 100 mg BID GTB Last administered on 09:00; Admin Dose 100 MG; Start 08/24/16 at 09:00 Collagenase (Santyl) 1 applic DAILY TOP Last administered on 08/31/16 11:05; Admin Dose 1 APPLIC; Start 08/24/16 at 03:30 Miscellaneous Information 1 ea NOTE XX ; Start 08/24/16 at 22:00 Glucose (Glutose) 15 gm Q15M PRN PO DECREASED GLUCOSE; Start 08/24/16 at 22:00 Glucose (Glutose) 22.5 gm Q15M PRN PO DECREASED GLUCOSE; Start 08/24/16 at 22:00 Dextrose (D50w Syringe) 25 ml Q15M PRN IV DECREASED GLUCOSE; Start 08/24/16 at 22:00 Dextrose (D50w Syringe) 50 ml Q15M PRN IV DECREASED GLUCOSE; Start 08/24/16 at 22:00 Glucagon (Glucagen) 1 mg Q15M PRN IM DECREASED GLUCOSE; Start 08/24/16 at 22:00 Glucose 15 gm 15 gm Q15M PRN BUCCAL DECREASED GLUCOSE; Start 08/24/16 at 22:00 Cefepime HCl (Maxipime 2gm/50 ml (Pmx)) 50 ml @ 100 mls/hr Q24H IVPB Last administered on 08/31/16 11:02; Admin Dose 100 MLS/HR; Start 08/26/16 at 09:00 Insulin Glargine (Lantus) 10 unit QPM SC ; Start 08/27/16 at 21:00 IV Flush 10 ml 10 ml PRN PRN IV IV PROTOCOL; Start 08/28/16 at 13:30 Linezolid 300 ml @ 300 mls/hr Q12 IVPB Last administered on 08/31/16 11:02; Admin Dose 300 MLS/HR; Start 08/29/16 at 21:00 Levofloxacin/ Dextrose 100 ml @ 100 mls/hr Q48H IVPB Last administered on 08/29 15:58; Admin Dose 100 MLS/HR; Start 08/29/16 at 14:30 Sodium Chloride (1/2 NS) 1,000 ml @ 80 mls/hr [id number] IV Last administered on 08/30/16 04:30; Admin Dose 80 MLS/HR; Start 08/29/16 at 16:00 Collagenase 1 applic 1 applic DAILY TOP Last administered on 08/30/16 10:59; Admin Dose 1 APPLIC; Start 08/30/16 at 09:00 Potassium Chloride/Dextrose/ Sodium Chloride (KCl/D5-1/4ns) 1,005 ml @ 60 mls/ hr [id number] IV Last administered on 08/30/16 18:57; Admin Dose 60 MLS/HR; Start 08/30/16 at 16:00 Insulin Aspart (Novolog Insulin Pen) NOVOLOG *MILD* ALGORI... Q6 SC ; Start at 00:00 Assessment/Plan Chief Complaint/Hosp Course IMPRESSION: 1. Status post Shock-hypovolemic/septic--due to likely cath-related BSI 2. Urinary tract infection with septic shock 3. Acute kidney injury, likely due to hypovolemia and prerenal causes. Hypernatremia 4. Transaminitis, likely due to ischemic hepatopathy. 5. Troponin leak, possibly likely due to demand ischemia. 6. Possible ventilator-associated pneumonia versus aspiration. 7. Chronic encephalopathy. RECOMMENDATIONS: 1. Broad spectrum antibiotics as initiated. 2. Ventilatory support with plans to lower FIO2 as tolerated. 3. Consider DC PICC line for line vacation 4. Vasopressors as needed 5. Status post PRBCs we'll need right occipital 6. Continue free water and renal recommendations Overall prognosis remains guarded Palliative care recommendations Transfer to telemetry Problems: N[facility] BALLARD MD, [facility] Aug 31, 2016 12:45
[2016-08-31 14:30] LABS: BASOPHILS % 0.3 % (0.0-2.0); HEMATOCRIT 27.9 % (42.0-52.0); HEMOGLOBIN 9.2 g/dl (14.0-18.0); LYMPHOCYTES # 0.3 10^3/ul (0.8-2.9); LYMPHOCYTES % 4.2 % (15.0-51.0); MEAN CORPUSCULAR HEMOGLOBIN 28.8 pg (29.0-33.0); MEAN CORPUSCULAR VOLUME 87.1 fl (82.0-101.0); MEAN PLATELET VOLUME 10.5 fl (7.4-10.4); MONOCYTE # 0.4 10^3/ul (0.3-0.9); MONOCYTES % 5.3 % (0.0-11.0); NEUTROPHIL # 7.4 10^3/ul (1.6-7.5); NEUTROPHILS % 90.2 % (39.0-77.0); PLATELET COUNT 219 10^3/UL (140-440); RED BLOOD COUNT 3.21 10^6/ul (4.70-6.10); RED CELL DISTRIBUTION WIDTH 16.5 % (11.5-14.5); UNCORRECTED WBC 8.2 10^3/ul (4.8-10.8); WHITE BLOOD COUNT 8.2 10^3/ul (4.8-10.8)
[2016-08-31 14:38] LABS: SUSPECT 1
[2016-08-31 14:39] LABS: CONDITION 1; LH ANALYZER COMMENTS 1
[2016-08-31 14:43] LABS: POTASSIUM 3.1 mmol/L (3.5-5.1)
[2016-08-31 14:45] LABS: CREATININE 1.47 mg/dl (0.61-1.24)
[2016-08-31 14:46] LABS: CALCIUM 8.4 mg/dl (8.4-10.2)
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
[2016-08-31] MEDS: LEVOFLOXACIN 500MG/D5W (PMX) 100 ML IVPB SCH (17:04)
[2016-08-31] MEDS: POTASSIUM CHLORIDE 10 MEQ in DEXTROSE 5%-0.225% NACL 1,000 ML IV SCH (17:04)
--- NOTE | 2016-08-31 18:55 | CONS ---
Date/Time of Note Date/Time of Note DATE: 08/31/16 TIME: 18:53 Assessment/Plan Assessment/Plan Chief Complaint/Hosp Course 1. Acute hypernatremia free water deficit 2. Acute kidney injury on chronic kidney disease secondary to previous ischemic acute tubular necrosis from severe prerenal azotemia. 3. Severe prerenal azotemia 4. Sepsis secondary to urinary tract infection. 5. History of recent admission. 6. 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 7. Chronic respiratory failure, status post tracheostomy and status post PEG tube placement. plan iv fluid iv d5 w.kcl Problems: Consultation Date/Type/Reason Admit Date/Time Aug 23, 2016 at 22:10 Type of Consultation: renal 24 HR Interval Summary Subjective hx not possible: pt non-verbal Exam/Review of Systems Vital Signs Vitals Vital Signs Date Time Temp Pulse Resp B/P Pulse Ox O2 Delivery O2 Flow Rate FiO2 08/31/16 17:30 73 08/31/16 17:10 18 99 30 08/31/16 14:55 98.3 153/84 08/30/16 20:00 Mechanical Ventilator Intake and Output 08/30/16 08/30/16 08/31/16 15:00 23:00 07:00 Intake Total 300 ml 1100 ml Output Total 1100 ml 800 ml Balance -800 ml 300 ml Exam Respiratory: clear to auscultation Cardiovascular: regular rate and rhythm Gastrointestinal: soft Extremities: No edema Results Result Diagram: 08/31/16 1410 08/31/16 1410 Results 24 hrs Laboratory Tests Test 08/30/16 19:06 08/30/16 20:00 08/30/16 20:26 08/31/16 00:45 Bedside Glucose 97 89 108 Urine Osmolality 410 Urine Random Sodium 78 Test 08/31/16 05:44 08/31/16 10:55 08/31/16 14:10 Bedside Glucose 113 103 Anion Gap 15 Basophils # 0.0 Basophils % 0.3 Blood Morphology Comment Blood Urea Nitrogen 65 H Calcium Level 8.4 Carbon Dioxide Level 17 L Chloride Level 127 H Creatinine 1.47 H Eosinophils # 0.0 Eosinophils % 0.0 Glucose Level 100 Hematocrit 27.9 L Hemoglobin 9.2 L Lymphocytes # 0.3 L Lymphocytes % 4.2 L Magnesium Level 2.0 Mean Corpuscular Hemoglobin 28.8 L Mean Corpuscular Hemoglobin Concent 33.0 Mean Corpuscular Volume 87.1 Mean Platelet Volume 10.5 H Monocytes # 0.4 Monocytes % 5.3 Neutrophils # 7.4 Neutrophils % 90.2 H Nucleated Red Blood Cells # 0.0 Nucleated Red Blood Cells % 0.0 Platelet Count 219 # Potassium Level 3.1 L Red Blood Count 3.21 L Red Cell Distribution Width 16.5 H Sodium Level 156 H White Blood Count 8.2 Medications Medications Current Medications Ondansetron HCl (Zofran Inj) 4 mg Q6H PRN IV NAUSEA AND/OR VOMITING; Start 08/23 at 23:00 Morphine Sulfate (morphine) 2 mg Q4H PRN IV SEVERE PAIN LEVEL 7-10 Last administered on 08/24/16 23:58; Admin Dose 2 MG; Start 08/23/16 at 23:00 Acetaminophen (Tylenol Tab) 650 mg Q4H PRN GTB MILD PAIN LEVEL 1-3 Last administered on 08/24/16 16:15; Admin Dose 650 MG; Start 08/23/16 at 23:00 Amiodarone HCl (Cordarone) 200 mg DAILY GTB Last administered on 08/31/16 11: 03; Admin Dose 200 MG; Start 08/24/16 at 09:00 Ascorbic Acid (Vitamin C) 500 mg DAILY GTB Last administered on 08/31/16 11:01 ; Admin Dose 500 MG; Start 08/24/16 at 09:00 Bisacodyl (Dulcolax Supp) 10 mg Q24H PRN AR PRN; Start 08/23/16 at 23:00 Chlorhexidine Gluconate (Peridex) 15 ml Q12 MM Last administered on 08/31/16 11:01; Admin Dose 15 ML; Start 08/24/16 at 09:00 Cholecalciferol (Vitamin D) 1,000 unit DAILY GTB Last administered on 11:01; Admin Dose 1,000 UNIT; Start 08/24/16 at 09:00 Eye Lubricant (Artificial Tears Oph) 2 drop BID BOTH EYES Last administered on 08/31/16 11:08; Admin Dose 2 DROP; Start 08/24/16 at 09:00 Simethicone (Mylicon) 80 mg Q12 PRN GTB DISTENSION/GAS/BLOATING; Start 08/23/16 at 23:00 Tramadol HCl (Ultram) 50 mg BID GTB Last administered on 08/31/16 11:02; Admin Dose 50 MG; Start 08/24/16 at 09:00 Zinc Sulfate (Zinc Sulfate) 220 mg DAILY GTB Last administered on 08/31/16 11: 02; Admin Dose 220 MG; Start 08/24/16 at 09:00 Lactobacillus Acidoph/Bulgaricus (Floranex) 1 tab DAILY PO Last administered on 08/31/16 11:02; Admin Dose 1 TAB; Start 08/24/16 at 11:00 Multivitamins (Thera-Plus) 5 ml DAILY GTB Last administered on 08/31/16 11:03 ; Admin Dose 5 ML; Start 08/24/16 at 09:00 Lansoprazole (Prevacid) 30 mg BID@,18 GTB Last administered on 08/31/16 05: 45; Admin Dose 30 MG; Start 08/24/16 at 06:00 Ferrous Sulfate (Feosol Liquid Cup) 330 mg BID GTB Last administered on 11:04; Admin Dose 330 MG; Start 08/24/16 at 09:00 Docusate Sodium (Colace Liquid Cup) 100 mg BID GTB Last administered on 09:00; Admin Dose 100 MG; Start 08/24/16 at 09:00 Collagenase (Santyl) 1 applic DAILY TOP Last administered on 08/31/16 11:05; Admin Dose 1 APPLIC; Start 08/24/16 at 03:30 Miscellaneous Information 1 ea NOTE XX ; Start 08/24/16 at 22:00 Glucose (Glutose) 15 gm Q15M PRN PO DECREASED GLUCOSE; Start 08/24/16 at 22:00 Glucose (Glutose) 22.5 gm Q15M PRN PO DECREASED GLUCOSE; Start 08/24/16 at 22:00 Dextrose (D50w Syringe) 25 ml Q15M PRN IV DECREASED GLUCOSE; Start 08/24/16 at 22:00 Dextrose (D50w Syringe) 50 ml Q15M PRN IV DECREASED GLUCOSE; Start 08/24/16 at 22:00 Glucagon (Glucagen) 1 mg Q15M PRN IM DECREASED GLUCOSE; Start 08/24/16 at 22:00 Glucose 15 gm 15 gm Q15M PRN BUCCAL DECREASED GLUCOSE; Start 08/24/16 at 22:00 Cefepime HCl (Maxipime 2gm/50 ml (Pmx)) 50 ml @ 100 mls/hr Q24H IVPB Last administered on 08/31/16 11:02; Admin Dose 100 MLS/HR; Start 08/26/16 at 09:00 Insulin Glargine (Lantus) 10 unit QPM SC ; Start 08/27/16 at 21:00 IV Flush 10 ml 10 ml PRN PRN IV IV PROTOCOL; Start 08/28/16 at 13:30 Linezolid 300 ml @ 300 mls/hr Q12 IVPB Last administered on 08/31/16 11:02; Admin Dose 300 MLS/HR; Start 08/29/16 at 21:00 Levofloxacin/ Dextrose 100 ml @ 100 mls/hr Q48H IVPB Last administered on 08/31 17:04; Admin Dose 100 MLS/HR; Start 08/29/16 at 14:30 Sodium Chloride (1/2 NS) 1,000 ml @ 80 mls/hr [id number] IV Last administered on 08/30/16 04:30; Admin Dose 80 MLS/HR; Start 08/29/16 at 16:00 Collagenase (Santyl) 1 applic DAILY TOP Last administered on 08/30/16 10:59; Admin Dose 1 APPLIC; Start 08/30/16 at 09:00 Insulin Aspart (Novolog Insulin Pen) NOVOLOG *MILD* ALGORI... Q6 SC ; Start at 00:00 PATRICIO ELIZALDE MD Aug 31, 2016 18:54
[2016-08-31] MEDS ORDERED: D5W + KCL 20 MEQ 1,000 ML IV SCH (19:00)
[2016-08-31] MEDS: INSULIN GLARGINE [LANtus] 3 ML PEN SC SCH (21:00)
[2016-09-01] VITALS (24 sets, daily range): BP systolic 125–168; BP diastolic 72–89; PULSE 74–85; RESP 15–23
[2016-09-01] MEDS: INSULIN ASPART [NOVOLOG] 3 ML PEN SC SCH ×4 (00:52→18:00)
[2016-09-01] MEDS: SOD CHLORIDE 0.45% 1,000 ML IV SCH (05:10)
[2016-09-01] MEDS: LANSOPRAZOLE 30 MG CAP GTB SCH ×2 (05:16→19:07)
[2016-09-01] MEDS: MULTIVITAMINS 5 ML CUP GTB SCH (09:00)
[2016-09-01] MEDS: TPN 1,000 ML IV SCH ×2 (09:30→22:00)
--- NOTE | 2016-09-01 09:40 | PN ---
Date/Time of Note Date/Time of Note DATE: 09/01/16 TIME: 09:28 Assessment/Plan VTE Prophylaxis VTE Prophylaxis Intervention: other Lines/Catheters IV C[facility] Type ([facility] PICC Line Central line still needed: Yes Urinary Cath still in place: Yes Reason Cath still needed: other (indicate) Assessment/Plan Chief Complaint/Hosp Course Assessment and plan: 1. Sepsis, resolved , likely secondary to urinary tract infection, line sepsis and severe dehydration Continue sepsis protocol, aggressive IV fluid, off pressors, broad-spectrum IV antibiotics Infectious disease and authorization coordinator been consulted 2. Urinary tract infection, Continue broad-spectrum IV antibiotics, Organism 1 PSEUDOMONAS AERUGINOSA Organism 2 PROVIDENCIA STUARTII 3. Acute renal failure, likely secondary to severe dehydration Continue IV fluids, nephrology has been consulted follow-up renal panel in a.m. 4. Severe hypernatremia, likely secondary to severe dehydration, improving Continue D5W, follow-up renal panel and electrolytes in a.m. Nephrology has been consulted 5. Hypokalemia, Repleted 6. Transaminitis, Likely secondary to severe dehydration, caution with hepatotoxic medication Follow-up liver function tests in a.m. 7. Diabetic mellitus, better controlled Continue insulin sliding scale, continue Lantus, restart diabeticsource 8. Sacral decubitus, with evidence of lower extremity decubitus as well Wound care consulted 9. Anemia, Continue iron supplementations, will transfuse PRBC if hemoglobin is less than 7.5 Status post transfusion of total 3 unit packed red blood cell , stable 10 . 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 PEG tube dysfunction, aspirin grey stock recorder for consulted. At this time secondary to severe erythema at the G-tube site, G-tube replacement has been deferred 2 weeks 12. Feeding, at this time will hold tube feeding secondary to PEG tube dysfunction Condition: Guarded We will continue monitor patient closely for recommendation management treatment as clinical course Plan to start patient on TPN since patient needs bowel rest and PEG tube site rest 2 weeks Plan to transfer to care home facility after starting TPN and when bed is available Problems: Subjective 24 Hr Interval Summary Free Text/Dictation No acute changes Patient was planned to be discharged to a care home facility although secondary to have an NG tube to care home facility has refused the patient ( as their policy they cannot accept the patient with NG tube) . Patient has minimal response to pain or verbal stimuli Exam/Review of Systems Vital Signs Vitals Vital Signs Date Time Temp Pulse Resp B/P Pulse Ox O2 Delivery O2 Flow Rate FiO2 09/01/16 08:51 75 09/01/16 08:08 97.4 15 143/77 100 09/01/16 07:30 30 08/30/16 20:00 Mechanical Ventilator Intake and Output 08/31/16 08/31/16 09/01/16 14:59 22:59 06:59 Intake Total 300 ml 700 ml Output Total 700 ml 1300 ml Balance -400 ml -600 ml Exam General: The patient is cachectic, HEENT: Atraumatic, normocephalic. The pupils are symmetric, decubitus ulcer bilateral earlobes Neck: Trach in place Chest: Normal Lungs: Decreased breath sounds bilateral lower lung field Heart: Normal S1-S2, Regular rhythm and rate. Abdomen: Soft , nontender, nondistended , bowel sounds are present. PEG tube site leaking, erythema around PEG tube site Extremities: Nonpitting edema bilateral lower extremity, bilateral lower extremities flaccid, decubitus ulcer bilateral lower extremities Neurologic: Patient is awake , minimal respond to pain or verbal stimuli Skin: Unstageable sacral decubitus, decubitus ulcer bilateral earlobes, decubitus ulcer bilateral lower extremities with erythema Results Result Diagram: 08/31/16 1410 08/31/16 1410 Results 24 hrs Laboratory Tests Test 08/31/16 10:55 08/31/16 14:10 08/31/16 21:11 09/01/16 00:47 Bedside Glucose 103 104 142 Anion Gap 15 Basophils # 0.0 Basophils % 0.3 Blood Morphology Comment Blood Urea Nitrogen 65 H Calcium Level 8.4 Carbon Dioxide Level 17 L Chloride Level 127 H Creatinine 1.47 H Eosinophils # 0.0 Eosinophils % 0.0 Glucose Level 100 Hematocrit 27.9 L Hemoglobin 9.2 L Lymphocytes # 0.3 L Lymphocytes % 4.2 L Magnesium Level 2.0 Mean Corpuscular Hemoglobin 28.8 L Mean Corpuscular Hemoglobin Concent 33.0 Mean Corpuscular Volume 87.1 Mean Platelet Volume 10.5 H Monocytes # 0.4 Monocytes % 5.3 Neutrophils # 7.4 Neutrophils % 90.2 H Nucleated Red Blood Cells # 0.0 Nucleated Red Blood Cells % 0.0 Platelet Count 219 # Potassium Level 3.1 L Red Blood Count 3.21 L Red Cell Distribution Width 16.5 H Sodium Level 156 H White Blood Count 8.2 Test 09/01/16 05:20 Bedside Glucose 121 Medications Medications Current Medications Ondansetron HCl (Zofran Inj) 4 mg Q6H PRN IV NAUSEA AND/OR VOMITING; Start 08/23 at 23:00 Morphine Sulfate (morphine) 2 mg Q4H PRN IV SEVERE PAIN LEVEL 7-10 Last administered on 08/24/16 23:58; Admin Dose 2 MG; Start 08/23/16 at 23:00 Acetaminophen (Tylenol Tab) 650 mg Q4H PRN GTB MILD PAIN LEVEL 1-3 Last administered on 08/24/16 16:15; Admin Dose 650 MG; Start 08/23/16 at 23:00 Amiodarone HCl (Cordarone) 200 mg DAILY GTB Last administered on 08/31/16 11: 03; Admin Dose 200 MG; Start 08/24/16 at 09:00 Ascorbic Acid (Vitamin C) 500 mg DAILY GTB Last administered on 08/31/16 11:01 ; Admin Dose 500 MG; Start 08/24/16 at 09:00 Bisacodyl (Dulcolax Supp) 10 mg Q24H PRN CO PRN; Start 08/23/16 at 23:00 Chlorhexidine Gluconate (Peridex) 15 ml Q12 MM Last administered on 08/31/16 21:13; Admin Dose 15 ML; Start 08/24/16 at 09:00 Cholecalciferol (Vitamin D) 1,000 unit DAILY GTB Last administered on 11:01; Admin Dose 1,000 UNIT; Start 08/24/16 at 09:00 Eye Lubricant (Artificial Tears Oph) 2 drop BID BOTH EYES Last administered on 08/31/16 21:14; Admin Dose 2 DROP; Start 08/24/16 at 09:00 Simethicone (Mylicon) 80 mg Q12 PRN GTB DISTENSION/GAS/BLOATING; Start 08/23/16 at 23:00 Tramadol HCl (Ultram) 50 mg BID GTB Last administered on 08/31/16 21:14; Admin Dose 50 MG; Start 08/24/16 at 09:00 Zinc Sulfate (Zinc Sulfate) 220 mg DAILY GTB Last administered on 08/31/16 11: 02; Admin Dose 220 MG; Start 08/24/16 at 09:00 Lactobacillus Acidoph/Bulgaricus (Floranex) 1 tab DAILY PO Last administered on 08/31/16 11:02; Admin Dose 1 TAB; Start 08/24/16 at 11:00 Multivitamins (Thera-Plus) 5 ml DAILY GTB Last administered on 08/31/16 11:03 ; Admin Dose 5 ML; Start 08/24/16 at 09:00 Lansoprazole (Prevacid) 30 mg BID@,18 GTB Last administered on 09/01/16 05: 16; Admin Dose 30 MG; Start 08/24/16 at 06:00 Ferrous Sulfate (Feosol Liquid Cup) 330 mg BID GTB Last administered on 21:13; Admin Dose 330 MG; Start 08/24/16 at 09:00 Docusate Sodium (Colace Liquid Cup) 100 mg BID GTB Last administered on 21:13; Admin Dose 100 MG; Start 08/24/16 at 09:00 Collagenase (Santyl) 1 applic DAILY TOP Last administered on 08/31/16 11:05; Admin Dose 1 APPLIC; Start 08/24/16 at 03:30 Miscellaneous Information 1 ea NOTE XX ; Start 08/24/16 at 22:00 Glucose (Glutose) 15 gm Q15M PRN PO DECREASED GLUCOSE; Start 08/24/16 at 22:00 Glucose (Glutose) 22.5 gm Q15M PRN PO DECREASED GLUCOSE; Start 08/24/16 at 22:00 Dextrose (D50w Syringe) 25 ml Q15M PRN IV DECREASED GLUCOSE; Start 08/24/16 at 22:00 Dextrose (D50w Syringe) 50 ml Q15M PRN IV DECREASED GLUCOSE; Start 08/24/16 at 22:00 Glucagon (Glucagen) 1 mg Q15M PRN IM DECREASED GLUCOSE; Start 08/24/16 at 22:00 Glucose 15 gm 15 gm Q15M PRN BUCCAL DECREASED GLUCOSE; Start 08/24/16 at 22:00 Cefepime HCl (Maxipime 2gm/50 ml (Pmx)) 50 ml @ 100 mls/hr Q24H IVPB Last administered on 08/31/16 11:02; Admin Dose 100 MLS/HR; Start 08/26/16 at 09:00 Insulin Glargine (Lantus) 10 unit QPM SC ; Start 08/27/16 at 21:00 IV Flush 10 ml 10 ml PRN PRN IV IV PROTOCOL; Start 08/28/16 at 13:30 Linezolid 300 ml @ 300 mls/hr Q12 IVPB Last administered on 08/31/16 21:14; Admin Dose 300 MLS/HR; Start 08/29/16 at 21:00 Levofloxacin/ Dextrose 100 ml @ 100 mls/hr Q48H IVPB Last administered on 08/31 17:04; Admin Dose 100 MLS/HR; Start 08/29/16 at 14:30 Sodium Chloride (1/2 NS) 1,000 ml @ 80 mls/hr [id number] IV Last administered on 08/30/16 04:30; Admin Dose 80 MLS/HR; Start 08/29/16 at 16:00 Collagenase (Santyl) 1 applic DAILY TOP Last administered on 08/30/16 10:59; Admin Dose 1 APPLIC; Start 08/30/16 at 09:00 Insulin Aspart NOVOLOG *MILD* ALGORI... Q6 SC Last administered on 09/01/16 00 :52; Admin Dose 1 UNIT; Start 08/31/16 at 00:00 Potassium Chloride/Dextrose (D5W + KCl 20 Meq) 1,000 ml @ 80 mls/hr [id number] IV Last administered on 08/31/16 21:15; Admin Dose 80 MLS/HR; Start 08/31/16 at 19:00 IAM GÓMEZ MD Sep 01, 2016 09:39
[2016-09-01 10:49] LABS: EOSINOPHILS # 0.1 10^3/ul (0.0-0.5); EOSINOPHILS % 0.9 % (0.0-7.0); HEMATOCRIT 28.2 % (42.0-52.0); HEMOGLOBIN 9.4 g/dl (14.0-18.0); LYMPHOCYTES # 0.4 10^3/ul (0.8-2.9); LYMPHOCYTES % 5.1 % (15.0-51.0); MEAN CORPUSCULAR HEMOGLOBIN 29.1 pg (29.0-33.0); MEAN CORPUSCULAR HGB CONC 33.5 g/dl (32.0-37.0); MEAN CORPUSCULAR VOLUME 87.1 fl (82.0-101.0); MEAN PLATELET VOLUME 10.5 fl (7.4-10.4); MONOCYTE # 0.4 10^3/ul (0.3-0.9); MONOCYTES % 5.6 % (0.0-11.0); NEUTROPHIL # 6.5 10^3/ul (1.6-7.5); NEUTROPHILS % 88.4 % (39.0-77.0); PLATELET COUNT 228 10^3/UL (140-440); RED BLOOD COUNT 3.24 10^6/ul (4.70-6.10); RED CELL DISTRIBUTION WIDTH 16.8 % (11.5-14.5); UNCORRECTED WBC 7.3 10^3/ul (4.8-10.8); WHITE BLOOD COUNT 7.3 10^3/ul (4.8-10.8)
[2016-09-01 10:51] LABS: CONDITION 1; LH ANALYZER COMMENTS 1
[2016-09-01 11:06] LABS: POTASSIUM 3.2 mmol/L (3.5-5.1)
[2016-09-01 11:08] LABS: CREATININE 1.46 mg/dl (0.61-1.24)
[2016-09-01 11:09] LABS: CALCIUM 8.4 mg/dl (8.4-10.2); MAGNESIUM 1.8 mg/dl (1.7-2.5)
[2016-09-01] MEDS: DOCUSATE SODIUM 10 MG/ML (10ML CUP) GTB SCH ×2 (12:14→21:25)
[2016-09-01] MEDS: ARTIFICIAL TEARS 15 ML OPH BOTH EYES SCH ×2 (12:14→21:25)
[2016-09-01] MEDS: FERROUS SULFATE 60 MG/ML 5ML CUP GTB SCH ×2 (12:15→21:26)
[2016-09-01] MEDS: AMIODARONE 200 MG TAB GTB SCH (12:15)
[2016-09-01] MEDS: CHOLECALCIFEROL 1,000 UNIT TAB GTB SCH (12:16)
[2016-09-01] MEDS: ZINC SULFATE 220 MG CAP GTB SCH (12:16)
[2016-09-01] MEDS: ASCORBIC ACID 500 MG TAB GTB SCH (12:16)
[2016-09-01] MEDS: traMADol 50 MG TAB GTB SCH ×2 (12:16→21:39)
[2016-09-01] MEDS: CHLORHEXIDINE GLUCONATE 15 ML UD CUP MM SCH ×2 (12:17→21:25)
[2016-09-01] MEDS: LINEZOLID 600 MG/D5W (PMX) 300 ML IVPB SCH ×2 (12:17→21:26)
[2016-09-01] MEDS: LACTOBACILLUS CHEW TAB PO SCH (12:17)
[2016-09-01] MEDS: CEFEPIME 2GM/50 ML (PMX) 50 ML IVPB SCH (12:17)
[2016-09-01] MEDS: COLLAGENASE 30 GM TUBE TOP SCH ×2 (12:34)
--- NOTE | 2016-09-01 15:47 | CONS ---
Date/Time of Note Date/Time of Note DATE: 09/01/16 TIME: 15:44 Assessment/Plan Assessment/Plan Chief Complaint/Hosp Course ID PROGRESS NOTE TOTAL ABX DAY # => Zyvox #3, Levaquin #3, Cefepime 24H INTERVAL SUMMARY * Non-communicative,Frail, thin, chronic debilitated 70 yo M, Vented, somnolent * No fevers, VSS, appears comfortable, NGT, Trach-> Vented PHYSICAL EXAMINATION: GENERAL: 70 yo M w/chronic encephalopathy, VDRF HEENT: Head DSG, NGT secure NECK: Trached-> Vented CHEST: Rise symmetrical= Vented HEART: RRR ABDOMEN: Soft= Colostomy bag EXTREMITIES: Warm SKIN: Decubs, unstageable ID ASSESSMENT: 70 yo M 1. s/p Severe sepsis with shock= resolving 2. Methicillin-resistant Staphylococcus aureus bacteremia => PICC Line removed 3. Unstageable sacral wound with culture growing methicillin-resistant Staphylococcus aureus, vancomycin-resistant enterococcus Klebsiella pneumoniae and Proteus mirabilis. 4. Polymicrobial urinary tract infection. 7. Healthcare-associated pneumonia = Polymicrobial (+)MRSA/(+)Proteus Mirabilis /(+) ACHROMOBACTER SPECIES 8. Transaminitis. 9. Acute renal failure. INVASIVES: * Trach, NGT, PICC CURRENT ABX: DAY # => Zyvox #2, Levaquin #2, Cefepime s/p Vanco IV ID RECOMMENDATIONS: CONTINUE Current ABX-> Await clinical improvement PICC Line DC'd w/new PICC in place . . Problems: Consultation Date/Type/Reason Admit Date/Time Aug 23, 2016 at 22:10 Type of Consultation: ID Exam/Review of Systems Vital Signs Vitals Vital Signs Date Time Temp Pulse Resp B/P Pulse Ox O2 Delivery O2 Flow Rate FiO2 09/01/16 15:33 97.6 77 18 168/72 99 09/01/16 13:05 30 08/30/16 20:00 Mechanical Ventilator Intake and Output 08/31/16 08/31/16 09/01/16 15:00 23:00 07:00 Intake Total 300 ml 700 ml Output Total 700 ml 1300 ml Balance -400 ml -600 ml Results Result Diagram: 09/01/16 1000 09/01/16 1000 Results 24 hrs Laboratory Tests Test 08/31/16 21:11 09/01/16 00:47 09/01/16 05:20 09/01/16 10:00 Bedside Glucose 104 142 121 Anion Gap 16 Basophils # 0.0 Basophils % 0.0 Blood Morphology Comment Blood Urea Nitrogen 52 H Calcium Level 8.4 Carbon Dioxide Level 18 L Chloride Level 124 H Creatinine 1.46 H Eosinophils # 0.1 Eosinophils % 0.9 Glucose Level 99 Hematocrit 28.2 L Hemoglobin 9.4 L Lymphocytes # 0.4 L Lymphocytes % 5.1 L Magnesium Level 1.8 Mean Corpuscular Hemoglobin 29.1 Mean Corpuscular Hemoglobin Concent 33.5 Mean Corpuscular Volume 87.1 Mean Platelet Volume 10.5 H Monocytes # 0.4 Monocytes % 5.6 Neutrophils # 6.5 Neutrophils % 88.4 H Nucleated Red Blood Cells # 0.0 Nucleated Red Blood Cells % 0.0 Platelet Count 228 Potassium Level 3.2 L Red Blood Count 3.24 L Red Cell Distribution Width 16.8 H Sodium Level 155 H White Blood Count 7.3 Test 09/01/16 12:18 Bedside Glucose 96 Medications Medications Current Medications Ondansetron HCl (Zofran Inj) 4 mg Q6H PRN IV NAUSEA AND/OR VOMITING; Start 08/23 at 23:00 Morphine Sulfate (morphine) 2 mg Q4H PRN IV SEVERE PAIN LEVEL 7-10 Last administered on 08/24/16 23:58; Admin Dose 2 MG; Start 08/23/16 at 23:00 Acetaminophen (Tylenol Tab) 650 mg Q4H PRN GTB MILD PAIN LEVEL 1-3 Last administered on 08/24/16 16:15; Admin Dose 650 MG; Start 08/23/16 at 23:00 Amiodarone HCl (Cordarone) 200 mg DAILY GTB Last administered on 09/01/16 12: 15; Admin Dose 200 MG; Start 08/24/16 at 09:00 Ascorbic Acid (Vitamin C) 500 mg DAILY GTB Last administered on 09/01/16 12:16 ; Admin Dose 500 MG; Start 08/24/16 at 09:00 Bisacodyl (Dulcolax Supp) 10 mg Q24H PRN [place] PRN; Start 08/23/16 at 23:00 Chlorhexidine Gluconate (Peridex) 15 ml Q12 MM Last administered on 09/01/16 12:17; Admin Dose 15 ML; Start 08/24/16 at 09:00 Cholecalciferol (Vitamin D) 1,000 unit DAILY GTB Last administered on 12:16; Admin Dose 1,000 UNIT; Start 08/24/16 at 09:00 Eye Lubricant (Artificial Tears Oph) 2 drop BID BOTH EYES Last administered on 09/01/16 12:14; Admin Dose 2 DROP; Start 08/24/16 at 09:00 Simethicone (Mylicon) 80 mg Q12 PRN GTB DISTENSION/GAS/BLOATING; Start 08/23/16 at 23:00 Tramadol HCl (Ultram) 50 mg BID GTB Last administered on 09/01/16 12:16; Admin Dose 50 MG; Start 08/24/16 at 09:00 Zinc Sulfate (Zinc Sulfate) 220 mg DAILY GTB Last administered on 09/01/16 12: 16; Admin Dose 220 MG; Start 08/24/16 at 09:00 Lactobacillus Acidoph/Bulgaricus (Floranex) 1 tab DAILY PO Last administered on 09/01/16 12:17; Admin Dose 1 TAB; Start 08/24/16 at 11:00 Multivitamins (Thera-Plus) 5 ml DAILY GTB Last administered on 08/31/16 11:03 ; Admin Dose 5 ML; Start 08/24/16 at 09:00; Status Future Hold Lansoprazole (Prevacid) 30 mg BID@06,18 GTB Last administered on 09/01/16 05: 16; Admin Dose 30 MG; Start 08/24/16 at 06:00 Ferrous Sulfate (Feosol Liquid Cup) 330 mg BID GTB Last administered on 12:15; Admin Dose 330 MG; Start 08/24/16 at 09:00 Docusate Sodium (Colace Liquid Cup) 100 mg BID GTB Last administered on 12:14; Admin Dose 100 MG; Start 08/24/16 at 09:00 Collagenase (Santyl) 1 applic DAILY TOP Last administered on 09/01/16 12:34; Admin Dose 1 APPLIC; Start 08/24/16 at 03:30 Miscellaneous Information 1 ea NOTE XX ; Start 08/24/16 at 22:00 Glucose (Glutose) 15 gm Q15M PRN PO DECREASED GLUCOSE; Start 08/24/16 at 22:00 Glucose (Glutose) 22.5 gm Q15M PRN PO DECREASED GLUCOSE; Start 08/24/16 at 22:00 Dextrose (D50w Syringe) 25 ml Q15M PRN IV DECREASED GLUCOSE; Start 08/24/16 at 22:00 Dextrose (D50w Syringe) 50 ml Q15M PRN IV DECREASED GLUCOSE; Start 08/24/16 at 22:00 Glucagon (Glucagen) 1 mg Q15M PRN IM DECREASED GLUCOSE; Start 08/24/16 at 22:00 Glucose 15 gm 15 gm Q15M PRN BUCCAL DECREASED GLUCOSE; Start 08/24/16 at 22:00 Cefepime HCl (Maxipime 2gm/50 ml (Pmx)) 50 ml @ 100 mls/hr Q24H IVPB Last administered on 09/01/16 12:17; Admin Dose 100 MLS/HR; Start 08/26/16 at 09:00 Insulin Glargine (Lantus) 10 unit QPM SC ; Start 08/27/16 at 21:00 IV Flush 10 ml 10 ml PRN PRN IV IV PROTOCOL; Start 08/28/16 at 13:30 Linezolid 300 ml @ 300 mls/hr Q12 IVPB Last administered on 09/01/16 12:17; Admin Dose 300 MLS/HR; Start 08/29/16 at 21:00 Levofloxacin/ Dextrose (Levaquin 500mg/ D5W 100 ml (Pmx)) 100 ml @ 100 mls/hr Q48H IVPB Last administered on 08/31/16 17:04; Admin Dose 100 MLS/HR; Start at 14:30 Collagenase (Santyl) 1 applic DAILY TOP Last administered on 09/01/16 12:34; Admin Dose 1 APPLIC; Start 08/30/16 at 09:00 Insulin Aspart NOVOLOG *MILD* ALGORI... Q6 SC Last administered on 09/01/16 00 :52; Admin Dose 1 UNIT; Start 08/31/16 at 00:00 Total Parenteral Nutrition (Tpn) 1,000 ml @ 80 mls/hr [id number] IV ; Start at 09:30 ERIC LIN NP 15, 2017 15:47
--- NOTE | 2016-09-01 16:23 | CONS ---
Date/Time of Note Date/Time of Note DATE: 09/01/16 TIME: 16:22 Assessment/Plan Assessment/Plan Chief Complaint/Hosp Course 1. Acute hypernatremia free water deficit 2. Acute kidney injury on chronic kidney disease secondary to previous ischemic acute tubular necrosis from severe prerenal azotemia. 3. Severe prerenal azotemia 4. Sepsis secondary to urinary tract infection. 5. History of recent admission. 6. 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 7. Chronic respiratory failure, status post tracheostomy and status post PEG tube placement. plan iv fluid iv d5 w.kcl GTUBE WATER Problems: Consultation Date/Type/Reason Admit Date/Time Aug 23, 2016 at 22:10 Type of Consultation: RENAL 24 HR Interval Summary Subjective hx not possible: pt non-verbal Exam/Review of Systems Vital Signs Vitals Vital Signs Date Time Temp Pulse Resp B/P Pulse Ox O2 Delivery O2 Flow Rate FiO2 09/01/16 15:33 97.6 77 18 168/72 99 09/01/16 13:05 30 08/30/16 20:00 Mechanical Ventilator Intake and Output 08/31/16 08/31/16 09/01/16 15:00 23:00 07:00 Intake Total 300 ml 700 ml Output Total 700 ml 1300 ml Balance -400 ml -600 ml Exam Respiratory: diminished breath sounds Cardiovascular: regular rate and rhythm Gastrointestinal: soft Musculoskeletal: nl extremities to inspection Extremities: normal pulses Results Result Diagram: 09/01/16 1000 09/01/16 1000 Results 24 hrs Laboratory Tests Test 08/31/16 21:11 09/01/16 00:47 09/01/16 05:20 09/01/16 10:00 Bedside Glucose 104 142 121 Anion Gap 16 Basophils # 0.0 Basophils % 0.0 Blood Morphology Comment Blood Urea Nitrogen 52 H Calcium Level 8.4 Carbon Dioxide Level 18 L Chloride Level 124 H Creatinine 1.46 H Eosinophils # 0.1 Eosinophils % 0.9 Glucose Level 99 Hematocrit 28.2 L Hemoglobin 9.4 L Lymphocytes # 0.4 L Lymphocytes % 5.1 L Magnesium Level 1.8 Mean Corpuscular Hemoglobin 29.1 Mean Corpuscular Hemoglobin Concent 33.5 Mean Corpuscular Volume 87.1 Mean Platelet Volume 10.5 H Monocytes # 0.4 Monocytes % 5.6 Neutrophils # 6.5 Neutrophils % 88.4 H Nucleated Red Blood Cells # 0.0 Nucleated Red Blood Cells % 0.0 Platelet Count 228 Potassium Level 3.2 L Red Blood Count 3.24 L Red Cell Distribution Width 16.8 H Sodium Level 155 H White Blood Count 7.3 Test 09/01/16 12:18 Bedside Glucose 96 Medications Medications Current Medications Ondansetron HCl (Zofran Inj) 4 mg Q6H PRN IV NAUSEA AND/OR VOMITING; Start 08/23 at 23:00 Morphine Sulfate (morphine) 2 mg Q4H PRN IV SEVERE PAIN LEVEL 7-10 Last administered on 08/24/16 23:58; Admin Dose 2 MG; Start 08/23/16 at 23:00 Acetaminophen (Tylenol Tab) 650 mg Q4H PRN GTB MILD PAIN LEVEL 1-3 Last administered on 08/24/16 16:15; Admin Dose 650 MG; Start 08/23/16 at 23:00 Amiodarone HCl (Cordarone) 200 mg DAILY GTB Last administered on 09/01/16 12: 15; Admin Dose 200 MG; Start 08/24/16 at 09:00 Ascorbic Acid (Vitamin C) 500 mg DAILY GTB Last administered on 09/01/16 12:16 ; Admin Dose 500 MG; Start 08/24/16 at 09:00 Bisacodyl (Dulcolax Supp) 10 mg Q24H PRN [place] PRN; Start 08/23/16 at 23:00 Chlorhexidine Gluconate (Peridex) 15 ml Q12 MM Last administered on 09/01/16 12:17; Admin Dose 15 ML; Start 08/24/16 at 09:00 Cholecalciferol (Vitamin D) 1,000 unit DAILY GTB Last administered on 12:16; Admin Dose 1,000 UNIT; Start 08/24/16 at 09:00 Eye Lubricant (Artificial Tears Oph) 2 drop BID BOTH EYES Last administered on 09/01/16 12:14; Admin Dose 2 DROP; Start 08/24/16 at 09:00 Simethicone (Mylicon) 80 mg Q12 PRN GTB DISTENSION/GAS/BLOATING; Start 08/23/16 at 23:00 Tramadol HCl (Ultram) 50 mg BID GTB Last administered on 09/01/16 12:16; Admin Dose 50 MG; Start 08/24/16 at 09:00 Zinc Sulfate (Zinc Sulfate) 220 mg DAILY GTB Last administered on 09/01/16 12: 16; Admin Dose 220 MG; Start 08/24/16 at 09:00 Lactobacillus Acidoph/Bulgaricus (Floranex) 1 tab DAILY PO Last administered on 09/01/16 12:17; Admin Dose 1 TAB; Start 08/24/16 at 11:00 Multivitamins (Thera-Plus) 5 ml DAILY GTB Last administered on 08/31/16 11:03 ; Admin Dose 5 ML; Start 08/24/16 at 09:00; Status Future Hold Lansoprazole (Prevacid) 30 mg BID@18 GTB Last administered on 09/01/16 05: 16; Admin Dose 30 MG; Start 08/24/16 at 06:00 Ferrous Sulfate (Feosol Liquid Cup) 330 mg BID GTB Last administered on 12:15; Admin Dose 330 MG; Start 08/24/16 at 09:00 Docusate Sodium (Colace Liquid Cup) 100 mg BID GTB Last administered on 12:14; Admin Dose 100 MG; Start 08/24/16 at 09:00 Collagenase (Santyl) 1 applic DAILY TOP Last administered on 09/01/16 12:34; Admin Dose 1 APPLIC; Start 08/24/16 at 03:30 Miscellaneous Information 1 ea NOTE XX ; Start 08/24/16 at 22:00 Glucose (Glutose) 15 gm Q15M PRN PO DECREASED GLUCOSE; Start 08/24/16 at 22:00 Glucose (Glutose) 22.5 gm Q15M PRN PO DECREASED GLUCOSE; Start 08/24/16 at 22:00 Dextrose (D50w Syringe) 25 ml Q15M PRN IV DECREASED GLUCOSE; Start 08/24/16 at 22:00 Dextrose (D50w Syringe) 50 ml Q15M PRN IV DECREASED GLUCOSE; Start 08/24/16 at 22:00 Glucagon (Glucagen) 1 mg Q15M PRN IM DECREASED GLUCOSE; Start 08/24/16 at 22:00 Glucose 15 gm 15 gm Q15M PRN BUCCAL DECREASED GLUCOSE; Start 08/24/16 at 22:00 Cefepime HCl (Maxipime 2gm/50 ml (Pmx)) 50 ml @ 100 mls/hr Q24H IVPB Last administered on 09/01/16 12:17; Admin Dose 100 MLS/HR; Start 08/26/16 at 09:00 Insulin Glargine (Lantus) 10 unit QPM SC ; Start 08/27/16 at 21:00 IV Flush 10 ml 10 ml PRN PRN IV IV PROTOCOL; Start 08/28/16 at 13:30 Linezolid 300 ml @ 300 mls/hr Q12 IVPB Last administered on 09/01/16 12:17; Admin Dose 300 MLS/HR; Start 08/29/16 at 21:00 Levofloxacin/ Dextrose (Levaquin 500mg/ D5W 100 ml (Pmx)) 100 ml @ 100 mls/hr Q48H IVPB Last administered on 08/31/16 17:04; Admin Dose 100 MLS/HR; Start at 14:30 Collagenase (Santyl) 1 applic DAILY TOP Last administered on 09/01/16 12:34; Admin Dose 1 APPLIC; Start 08/30/16 at 09:00 Insulin Aspart NOVOLOG *MILD* ALGORI... Q6 SC Last administered on 09/01/16 00 :52; Admin Dose 1 UNIT; Start 08/31/16 at 00:00 Total Parenteral Nutrition (Tpn) 1,000 ml @ 80 mls/hr [id number] IV ; Start at 09:30 PATRICIO ELIZALDE MD Sep 01, 2016 16:23
[2016-09-01] MEDS: POTASSIUM CHLORIDE 30 MEQ in DEXTROSE 5% 1,000 ML IV SCH (17:00)
--- NOTE | 2016-09-01 18:20 | PN ---
DATE: REASON FOR FOLLOWUP: Ventilator management. The patient is stable this morning. No new events. PHYSICAL EXAMINATION: VITAL SIGNS: Temperature 97, pulse is 77, blood pressure 146/76, O2 saturation 96%, FIO2 of 30%. NECK: Trach site clean and intact. CARDIAC: S1, S2, no added sounds or murmurs. CHEST: Diminished air entry bilaterally. ABDOMEN: Soft, nontender. No guarding or rebound. EXTREMITIES: No cyanosis, clubbing, edema. NEUROLOGIC: Neurologically unable to assess. LABORATORY DATA: White count 7.3, hemoglobin 9.4, platelets within normal limits. Chemistry: Pota ssium 3.2, sodium 155. BUN 52, creatinine 1.46. IMPRESSION AND PLAN: 1. Vent dependent respiratory failure. 2. Chronic encephalopathy. 3. Multiple decubitus ulcers. 4. Hypernatremia. PLAN: 1. Correction of hypokalemia and hypernatremia with potassium and free water respectfully. 2. Continue vent support. 3. Consider de-escalation of antibiotics. 4. DVT and GI prophylaxis. Dictated By: NICK COBB/LESLY Conf#: [id number] DID#: [id number]
--- NOTE | 2016-09-01 19:57 | PN ---
DATE: CHIEF COMPLAINT: History of hematemesis. The patient has a G-tube, last night he had a residual, h e had a coffee-ground emesis 500 mL. Hemoglobin last night was 9.2, this morning, 9.4. PHYSICAL EXAMINATION: GENERAL: The patient has NG-tube in place. He is on a trach, on the vent. ABDOMEN: Showed a healing gastrostomy site. LABORATORY WORKUP: Essentially as mentioned above, hemoglobin 9.4. His prothrombin time 17.3, but we will repeat that, that was on the 6th of the month. CLINICAL IMPRESSION: 1. Upper gastrointestinal bleeding. 2. Dysphagia. 3. Leaking gastrostomy site. PLAN: At this time, I would recommend upper endoscopy; at the same time, I would recommend placemen t of a percutaneous transgastric jejunostomy tube so that we can prevent gastric leakage and also at the same time provide jejunal feeding. Dictated By: ERNA HUGGINS/LESLY Conf#: [id number] DID#: [id number]
[2016-09-01] MEDS: INSULIN GLARGINE [LANtus] 3 ML PEN SC SCH (21:47)
[2016-09-02] VITALS (23 sets, daily range): BP systolic 120–174; BP diastolic 57–82; PULSE 81–89; RESP 16–24
[2016-09-02] MEDS: LANSOPRAZOLE 30 MG CAP GTB SCH ×2 (05:41→18:13)
[2016-09-02] MEDS: INSULIN ASPART [NOVOLOG] 3 ML PEN SC SCH ×5 (05:42→23:14)
[2016-09-02] MEDS: POTASSIUM CHLORIDE 30 MEQ in DEXTROSE 5% 1,000 ML IV SCH ×4 (05:51→23:05)
[2016-09-02 06:21] LABS: INR 1.21; PROTIME 15.4 Sec (12.2-14.2); PT RATIO 1.2
[2016-09-02 06:34] LABS: POTASSIUM 3.2 mmol/L (3.5-5.1)
[2016-09-02 06:36] LABS: CREATININE 1.31 mg/dl (0.61-1.24)
[2016-09-02 06:37] LABS: PHOSPHORUS 3.5 mg/dl (2.5-4.9)
[2016-09-02 06:38] LABS: CALCIUM 8.3 mg/dl (8.4-10.2); MAGNESIUM 1.7 mg/dl (1.7-2.5)
[2016-09-02] MEDS: ARTIFICIAL TEARS 15 ML OPH BOTH EYES SCH ×2 (09:49→21:36)
[2016-09-02] MEDS: ZINC SULFATE 220 MG CAP GTB SCH (09:49)
[2016-09-02] MEDS: CHLORHEXIDINE GLUCONATE 15 ML UD CUP MM SCH ×2 (09:49→21:30)
[2016-09-02] MEDS: FERROUS SULFATE 60 MG/ML 5ML CUP GTB SCH ×2 (09:49→21:30)
[2016-09-02] MEDS: CHOLECALCIFEROL 1,000 UNIT TAB GTB SCH (09:49)
[2016-09-02] MEDS: LACTOBACILLUS CHEW TAB PO SCH (09:49)
[2016-09-02] MEDS: ASCORBIC ACID 500 MG TAB GTB SCH (09:49)
[2016-09-02] MEDS: DOCUSATE SODIUM 10 MG/ML (10ML CUP) GTB SCH ×2 (09:49→21:30)
[2016-09-02] MEDS: AMIODARONE 200 MG TAB GTB SCH (09:50)
[2016-09-02] MEDS: traMADol 50 MG TAB GTB SCH ×2 (09:50→21:30)
[2016-09-02] MEDS: TPN 1,000 ML IV SCH ×2 (09:51→22:31)
[2016-09-02] MEDS: LINEZOLID 600 MG/D5W (PMX) 300 ML IVPB SCH ×2 (09:51→21:31)
[2016-09-02] MEDS: COLLAGENASE 30 GM TUBE TOP SCH ×2 (09:51)
[2016-09-02] MEDS: CEFEPIME 2GM/50 ML (PMX) 50 ML IVPB SCH (13:12)
--- NOTE | 2016-09-02 13:37 | PN ---
Date/Time of Note Date/Time of Note DATE: 09/02/16 TIME: 13:34 Assessment/Plan VTE Prophylaxis VTE Prophylaxis Intervention: SCD's Lines/Catheters IV Catheter Type (from Nrs): PICC Line Central line still needed: Yes Urinary Cath still in place: Yes Reason Cath still needed: other (indicate) Assessment/Plan Chief Complaint/Hosp Course Assessment and plan: 1. Sepsis, resolved , likely secondary to urinary tract infection, line sepsis and severe dehydration Continue sepsis protocol, aggressive IV fluid, off pressors, broad-spectrum IV antibiotics Infectious disease and leathersmith been consulted 2. Urinary tract infection, Continue broad-spectrum IV antibiotics, Organism 1 PSEUDOMONAS AERUGINOSA Organism 2 PROVIDENCIA STUARTII 3. Acute renal failure, likely secondary to severe dehydration Continue IV fluids, nephrology has been consulted follow-up renal panel in a.m. 4. Severe hypernatremia, likely secondary to severe dehydration, improving Continue D5W, follow-up renal panel and electrolytes in a.m. Nephrology has been consulted 5. Hypokalemia, Repleted 6. Transaminitis, Likely secondary to severe dehydration, caution with hepatotoxic medication Follow-up liver function tests in a.m. 7. Diabetic mellitus, better controlled Continue insulin sliding scale, continue Lantus, restart diabeticsource 8. Sacral decubitus, with evidence of lower extremity decubitus as well Wound care consulted 9. Anemia, Continue iron supplementations, will transfuse PRBC if hemoglobin is less than 7.5 Status post transfusion of total 3 unit packed red blood cell , stable 10 . 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 PEG tube dysfunction, director product safety for consulted. Plan for upper endoscopy; and placement of a percutaneous transgastric jejunostomy tube so that we can prevent gastric leakage and also at the same time provide jejunal feeding. As per director product safety's recommendations 12. Feeding, at this time will hold tube feeding secondary to PEG tube dysfunction On TPN Condition: Guarded We will continue monitor patient closely for recommendation management treatment as clinical course Plan to transfer to fpc facility after PEG tube placement Problems: Subjective 24 Hr Interval Summary Free Text/Dictation No acute changes Patient has been started on TPN Vitals are stable Exam/Review of Systems Vital Signs Vitals Vital Signs Date Time Temp Pulse Resp B/P Pulse Ox O2 Delivery O2 Flow Rate FiO2 09/02/16 12:22 86 09/02/16 11:50 98.4 18 146/76 98 09/02/16 09:20 30 08/30/16 20:00 Mechanical Ventilator Intake and Output 09/01/16 09/01/16 09/02/16 15:00 23:00 07:00 Intake Total 300 ml 1115 ml Output Total 950 ml 1350 ml Balance -650 ml -235 ml Results Result Diagram: 09/01/16 1000 09/02/16 0500 Results 24 hrs Laboratory Tests Test 09/01/16 19:19 09/01/16 21:40 09/02/16 05:00 09/02/16 05:41 Bedside Glucose 106 115 120 Anion Gap 12 Blood Urea Nitrogen 45 H Calcium Level 8.3 L Carbon Dioxide Level 20 L Chloride Level 122 H Creatinine 1.31 H Glucose Level 106 INR International Normalized Ratio 1.21 Magnesium Level 1.7 Phosphorus Level 3.5 Potassium Level 3.2 L Prothrombin Time 15.4 H Prothrombin Time Ratio 1.2 Sodium Level 151 H Test 09/02/16 12:34 Bedside Glucose 186 Medications Medications Current Medications Ondansetron HCl (Zofran Inj) 4 mg Q6H PRN IV NAUSEA AND/OR VOMITING; Start 08/23 at 23:00 Morphine Sulfate (morphine) 2 mg Q4H PRN IV SEVERE PAIN LEVEL 7-10 Last administered on 08/24/16 23:58; Admin Dose 2 MG; Start 08/23/16 at 23:00 Acetaminophen (Tylenol Tab) 650 mg Q4H PRN GTB MILD PAIN LEVEL 1-3 Last administered on 08/24/16 16:15; Admin Dose 650 MG; Start 08/23/16 at 23:00 Amiodarone HCl (Cordarone) 200 mg DAILY GTB Last administered on 09/02/16 09: 50; Admin Dose 200 MG; Start 08/24/16 at 09:00 Ascorbic Acid (Vitamin C) 500 mg DAILY GTB Last administered on 09/02/16 09:49 ; Admin Dose 500 MG; Start 08/24/16 at 09:00 Bisacodyl (Dulcolax Supp) 10 mg Q24H PRN [place] PRN; Start 08/23/16 at 23:00 Chlorhexidine Gluconate (Peridex) 15 ml Q12 MM Last administered on 09/02/16 09:49; Admin Dose 15 ML; Start 08/24/16 at 09:00 Cholecalciferol (Vitamin D) 1,000 unit DAILY GTB Last administered on 09:49; Admin Dose 1,000 UNIT; Start 08/24/16 at 09:00 Eye Lubricant (Artificial Tears Oph) 2 drop BID BOTH EYES Last administered on 09/02/16 09:49; Admin Dose 2 DROP; Start 08/24/16 at 09:00 Simethicone (Mylicon) 80 mg Q12 PRN GTB DISTENSION/GAS/BLOATING; Start 08/23/16 at 23:00 Tramadol HCl (Ultram) 50 mg BID GTB Last administered on 09/02/16 09:50; Admin Dose 50 MG; Start 08/24/16 at 09:00 Zinc Sulfate (Zinc Sulfate) 220 mg DAILY GTB Last administered on 09/02/16 09: 49; Admin Dose 220 MG; Start 08/24/16 at 09:00 Lactobacillus Acidoph/Bulgaricus (Floranex) 1 tab DAILY PO Last administered on 09/02/16 09:49; Admin Dose 1 TAB; Start 08/24/16 at 11:00 Multivitamins (Thera-Plus) 5 ml DAILY GTB Last administered on 08/31/16 11:03 ; Admin Dose 5 ML; Start 08/24/16 at 09:00; Status Future Hold Lansoprazole (Prevacid) 30 mg BID@18 GTB Last administered on 09/02/16 05: 41; Admin Dose 30 MG; Start 08/24/16 at 06:00 Ferrous Sulfate (Feosol Liquid Cup) 330 mg BID GTB Last administered on 09:49; Admin Dose 330 MG; Start 08/24/16 at 09:00 Docusate Sodium (Colace Liquid Cup) 100 mg BID GTB Last administered on 09:49; Admin Dose 100 MG; Start 08/24/16 at 09:00 Collagenase (Santyl) 1 applic DAILY TOP Last administered on 09/02/16 09:51; Admin Dose 1 APPLIC; Start 08/24/16 at 03:30 Miscellaneous Information 1 ea NOTE XX ; Start 08/24/16 at 22:00 Glucose (Glutose) 15 gm Q15M PRN PO DECREASED GLUCOSE; Start 08/24/16 at 22:00 Glucose (Glutose) 22.5 gm Q15M PRN PO DECREASED GLUCOSE; Start 08/24/16 at 22:00 Dextrose (D50w Syringe) 25 ml Q15M PRN IV DECREASED GLUCOSE; Start 08/24/16 at 22:00 Dextrose (D50w Syringe) 50 ml Q15M PRN IV DECREASED GLUCOSE; Start 08/24/16 at 22:00 Glucagon (Glucagen) 1 mg Q15M PRN IM DECREASED GLUCOSE; Start 08/24/16 at 22:00 Glucose 15 gm 15 gm Q15M PRN BUCCAL DECREASED GLUCOSE; Start 08/24/16 at 22:00 Cefepime HCl (Maxipime 2gm/50 ml (Pmx)) 50 ml @ 100 mls/hr Q24H IVPB Last administered on 09/02/16 13:12; Admin Dose 100 MLS/HR; Start 08/26/16 at 09:00 Insulin Glargine (Lantus) 10 unit QPM SC Last administered on 09/01/16 21:47; Admin Dose 10 UNIT; Start 08/27/16 at 21:00 IV Flush 10 ml 10 ml PRN PRN IV IV PROTOCOL; Start 08/28/16 at 13:30 Linezolid 300 ml @ 300 mls/hr Q12 IVPB Last administered on 09/02/16 09:51; Admin Dose 300 MLS/HR; Start 08/29/16 at 21:00 Levofloxacin/ Dextrose (Levaquin 500mg/ D5W 100 ml (Pmx)) 100 ml @ 100 mls/hr Q48H IVPB Last administered on 08/31/16 17:04; Admin Dose 100 MLS/HR; Start at 14:30 Collagenase (Santyl) 1 applic DAILY TOP Last administered on 09/02/16 09:51; Admin Dose 1 APPLIC; Start 08/30/16 at 09:00 Insulin Aspart NOVOLOG *MILD* ALGORI... Q6 SC Last administered on 09/02/16 13 :21; Admin Dose 2 UNIT; Start 08/31/16 at 00:00 Total Parenteral Nutrition 1,000 ml @ 80 mls/hr [id number] IV Last administered on 09/02/16 09:51; Admin Dose 80 MLS/HR; Start 09/01/16 at 09:30 Potassium Chloride/Dextrose (KCl/D5W) 1,015 ml @ 100 mls/hr Q10H9M IV Last administered on 09/02/16 05:51; Admin Dose 100 MLS/HR; Start 09/01/16 at 17:00 IAM GÓMEZ MD Sep 02, 2016 13:37
[2016-09-02] MEDS: LEVOFLOXACIN 500MG/D5W (PMX) 100 ML IVPB SCH (14:11)
--- NOTE | 2016-09-02 15:33 | CONS ---
Date/Time of Note Date/Time of Note DATE: 09/02/16 TIME: 15:30 Assessment/Plan Assessment/Plan Chief Complaint/Hosp Course ID PROGRESS NOTE TOTAL ABX DAY # => Zyvox #4, Levaquin #4, Cefepime 24H INTERVAL SUMMARY * Clinically status quo - overall stable => Non-communicative,Frail, thin, chronic debilitated 70 yo M, Vented, somnolent * No fevers, VSS, appears comfortable, NGT, Trach-> Vented * Pt seen today with nurses during bed-bath -- rash noted on BUEXT and ABD ? Scabies rash ? * Plan for GT placement by Dr. [place] prior peg dislodged and site is healed PHYSICAL EXAMINATION: GENERAL: 70 yo M w/chronic encephalopathy, VDRF HEENT: Head DSG, NGT secure NECK: Trached-> Vented CHEST: Rise symmetrical= Vented HEART: RRR ABDOMEN: Soft= Colostomy bag EXTREMITIES: Warm SKIN: Decubs, unstageable ID ASSESSMENT: 70 yo M w/chronic debility 2/2 multiple medical problems re-admitted with: 1. s/p Severe sepsis with shock= RESOLVED * Afebrile, WBC normalized, VSS 2. Methicillin-resistant Staphylococcus aureus bacteremia => PICC Line removed 3. Unstageable sacral wound with culture growing methicillin-resistant Staphylococcus aureus, vancomycin-resistant enterococcus Klebsiella pneumoniae and Proteus mirabilis. 4. Polymicrobial urinary tract infection. 7. Healthcare-associated pneumonia = Polymicrobial (+)MRSA/(+)Proteus Mirabilis /(+) ACHROMOBACTER SPECIES 8. Transaminitis. 9. Acute renal failure. 10. RASH-> Possible SCABIES INVASIVES: * Trach, NGT, PICC CURRENT ABX: DAY # # => Zyvox #4, Levaquin #4, Cefepime s/p Vanco IV ID RECOMMENDATIONS: PEG placement planned Treat empirically for SCABIES . . . Problems: Consultation Date/Type/Reason Admit Date/Time Aug 23, 2016 at 22:10 Type of Consultation: ID Exam/Review of Systems Vital Signs Vitals Vital Signs Date Time Temp Pulse Resp B/P Pulse Ox O2 Delivery O2 Flow Rate FiO2 09/02/16 13:05 86 17 97 30 09/02/16 11:50 98.4 146/76 08/30/16 20:00 Mechanical Ventilator Intake and Output 09/01/16 09/01/16 09/02/16 15:00 23:00 07:00 Intake Total 300 ml 1115 ml Output Total 950 ml 1350 ml Balance -650 ml -235 ml Results Result Diagram: 09/01/16 1000 09/02/16 0500 Results 24 hrs Laboratory Tests Test 09/01/16 19:19 09/01/16 21:40 09/02/16 05:00 09/02/16 05:41 Bedside Glucose 106 115 120 Anion Gap 12 Blood Urea Nitrogen 45 H Calcium Level 8.3 L Carbon Dioxide Level 20 L Chloride Level 122 H Creatinine 1.31 H Glucose Level 106 INR International Normalized Ratio 1.21 Magnesium Level 1.7 Phosphorus Level 3.5 Potassium Level 3.2 L Prothrombin Time 15.4 H Prothrombin Time Ratio 1.2 Sodium Level 151 H Test 09/02/16 12:34 Bedside Glucose 186 Medications Medications Current Medications Ondansetron HCl (Zofran Inj) 4 mg Q6H PRN IV NAUSEA AND/OR VOMITING; Start 08/23 at 23:00 Morphine Sulfate (morphine) 2 mg Q4H PRN IV SEVERE PAIN LEVEL 7-10 Last administered on 08/24/16 23:58; Admin Dose 2 MG; Start 08/23/16 at 23:00 Acetaminophen (Tylenol Tab) 650 mg Q4H PRN GTB MILD PAIN LEVEL 1-3 Last administered on 08/24/16 16:15; Admin Dose 650 MG; Start 08/23/16 at 23:00 Amiodarone HCl (Cordarone) 200 mg DAILY GTB Last administered on 09/02/16 09: 50; Admin Dose 200 MG; Start 08/24/16 at 09:00 Ascorbic Acid (Vitamin C) 500 mg DAILY GTB Last administered on 09/02/16 09:49 ; Admin Dose 500 MG; Start 08/24/16 at 09:00 Bisacodyl (Dulcolax Supp) 10 mg Q24H PRN [place] PRN; Start 08/23/16 at 23:00 Chlorhexidine Gluconate (Peridex) 15 ml Q12 MM Last administered on 09/02/16 09:49; Admin Dose 15 ML; Start 08/24/16 at 09:00 Cholecalciferol (Vitamin D) 1,000 unit DAILY GTB Last administered on 09:49; Admin Dose 1,000 UNIT; Start 08/24/16 at 09:00 Eye Lubricant (Artificial Tears Oph) 2 drop BID BOTH EYES Last administered on 09/02/16 09:49; Admin Dose 2 DROP; Start 08/24/16 at 09:00 Simethicone (Mylicon) 80 mg Q12 PRN GTB DISTENSION/GAS/BLOATING; Start 08/23/16 at 23:00 Tramadol HCl (Ultram) 50 mg BID GTB Last administered on 09/02/16 09:50; Admin Dose 50 MG; Start 08/24/16 at 09:00 Zinc Sulfate (Zinc Sulfate) 220 mg DAILY GTB Last administered on 09/02/16 09: 49; Admin Dose 220 MG; Start 08/24/16 at 09:00 Lactobacillus Acidoph/Bulgaricus (Floranex) 1 tab DAILY PO Last administered on 09/02/16 09:49; Admin Dose 1 TAB; Start 08/24/16 at 11:00 Multivitamins (Thera-Plus) 5 ml DAILY GTB Last administered on 08/31/16 11:03 ; Admin Dose 5 ML; Start 08/24/16 at 09:00; Status Future Hold Lansoprazole (Prevacid) 30 mg BID@18 GTB Last administered on 09/02/16 05: 41; Admin Dose 30 MG; Start 08/24/16 at 06:00 Ferrous Sulfate (Feosol Liquid Cup) 330 mg BID GTB Last administered on 09:49; Admin Dose 330 MG; Start 08/24/16 at 09:00 Docusate Sodium (Colace Liquid Cup) 100 mg BID GTB Last administered on 09:49; Admin Dose 100 MG; Start 08/24/16 at 09:00 Collagenase (Santyl) 1 applic DAILY TOP Last administered on 09/02/16 09:51; Admin Dose 1 APPLIC; Start 08/24/16 at 03:30 Miscellaneous Information 1 ea NOTE XX ; Start 08/24/16 at 22:00 Glucose (Glutose) 15 gm Q15M PRN PO DECREASED GLUCOSE; Start 08/24/16 at 22:00 Glucose (Glutose) 22.5 gm Q15M PRN PO DECREASED GLUCOSE; Start 08/24/16 at 22:00 Dextrose (D50w Syringe) 25 ml Q15M PRN IV DECREASED GLUCOSE; Start 08/24/16 at 22:00 Dextrose (D50w Syringe) 50 ml Q15M PRN IV DECREASED GLUCOSE; Start 08/24/16 at 22:00 Glucagon (Glucagen) 1 mg Q15M PRN IM DECREASED GLUCOSE; Start 08/24/16 at 22:00 Glucose 15 gm 15 gm Q15M PRN BUCCAL DECREASED GLUCOSE; Start 08/24/16 at 22:00 Cefepime HCl (Maxipime 2gm/50 ml (Pmx)) 50 ml @ 100 mls/hr Q24H IVPB Last administered on 09/02/16 13:12; Admin Dose 100 MLS/HR; Start 08/26/16 at 09:00 Insulin Glargine (Lantus) 10 unit QPM SC Last administered on 09/01/16 21:47; Admin Dose 10 UNIT; Start 08/27/16 at 21:00 IV Flush 10 ml 10 ml PRN PRN IV IV PROTOCOL; Start 08/28/16 at 13:30 Linezolid 300 ml @ 300 mls/hr Q12 IVPB Last administered on 09/02/16 09:51; Admin Dose 300 MLS/HR; Start 08/29/16 at 21:00 Levofloxacin/ Dextrose (Levaquin 500mg/ D5W 100 ml (Pmx)) 100 ml @ 100 mls/hr Q48H IVPB Last administered on 09/02/16 14:11; Admin Dose 100 MLS/HR; Start at 14:30 Collagenase (Santyl) 1 applic DAILY TOP Last administered on 09/02/16 09:51; Admin Dose 1 APPLIC; Start 08/30/16 at 09:00 Insulin Aspart NOVOLOG *MILD* ALGORI... Q6 SC Last administered on 09/02/16 13 :21; Admin Dose 2 UNIT; Start 08/31/16 at 00:00 Total Parenteral Nutrition 1,000 ml @ 80 mls/hr [id number] IV Last administered on 09/02/16 09:51; Admin Dose 80 MLS/HR; Start 09/01/16 at 09:30 Potassium Chloride 30 meq/ Dextrose 1,015 ml @ 100 mls/hr Q10H9M IV Last administered on 09/02/16t 05:51; Admin Dose 100 MLS/HR; Start 09/01/16 at 17:00 Potassium Chloride/Sodium Chloride (KCl/NS) 110 ml @ 55 mls/hr ONCE ONCE IVPB ; Start 09/02/16 at 16:00; Stop 09/02/16 at 17:59 ERIC LIN NP Sep 02, 2016 15:32
[2016-09-02] MEDS ORDERED: POTASSIUM CHLORIDE 20 MEQ in SOD CHLORIDE 0.9% 100 ML IVPB ONE (16:00)
[2016-09-02] MEDS ORDERED: PERMETHRIN 5% 60 GM CR TOP SCH (17:00)
[2016-09-02] MEDS ORDERED: IVERMECTIN 3 MG TAB PO SCH (17:00)
--- NOTE | 2016-09-02 19:37 | PN ---
Date/Time of Note Date/Time of Note DATE: 09/02/16 TIME: 19:35 Assessment/Plan VTE Prophylaxis VTE Prophylaxis Intervention: other Lines/Catheters IV Catheter Type (from Nrs): PICC Line Central line still needed: Yes Urinary Cath still in place: Yes Reason Cath still needed: other (indicate) Assessment/Plan Chief Complaint/Hosp Course 1. Acute hypernatremia free water deficit 2. Acute kidney injury on chronic kidney disease secondary to previous ischemic acute tubular necrosis from severe prerenal azotemia. 3. Severe prerenal azotemia 4. Sepsis secondary to urinary tract infection. 5. History of recent admission. 6. 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 7. Chronic respiratory failure, status post tracheostomy and status post PEG tube placement. 8 hypokalemia plan iv fluid iv d5 w.kcl GTUBE WATER kcl Problems: Subjective 24 Hr Interval Summary Subjective hx not possible: pt non-verbal Exam/Review of Systems Vital Signs Vitals Vital Signs Date Time Temp Pulse Resp B/P Pulse Ox O2 Delivery O2 Flow Rate FiO2 09/02/16 17:17 87 09/02/16 17:10 18 100 30 09/02/16 16:24 98.4 168/80 08/30/16 20:00 Mechanical Ventilator Intake and Output 09/01/16 09/01/16 09/02/16 15:00 23:00 07:00 Intake Total 300 ml 1115 ml Output Total 950 ml 1350 ml Balance -650 ml -235 ml Exam Neck: supple Respiratory: clear to auscultation Cardiovascular: regular rate and rhythm Gastrointestinal: soft Extremities: edema (+) Results Result Diagram: 09/01/16 1000 09/02/16 0500 Results 24 hrs Laboratory Tests Test 09/01/16 21:40 09/02/16 05:00 09/02/16 05:41 09/02/16 12:34 Bedside Glucose 115 120 186 Anion Gap 12 Blood Urea Nitrogen 45 H Calcium Level 8.3 L Carbon Dioxide Level 20 L Chloride Level 122 H Creatinine 1.31 H Glucose Level 106 INR International Normalized Ratio 1.21 Magnesium Level 1.7 Phosphorus Level 3.5 Potassium Level 3.2 L Prothrombin Time 15.4 H Prothrombin Time Ratio 1.2 Sodium Level 151 H Test 09/02/16 16:20 09/02/16 17:21 Stool Occult Blood POSITIVE Bedside Glucose 177 Medications Medications Current Medications Ondansetron HCl (Zofran Inj) 4 mg Q6H PRN IV NAUSEA AND/OR VOMITING; Start 08/23 at 23:00 Morphine Sulfate (morphine) 2 mg Q4H PRN IV SEVERE PAIN LEVEL 7-10 Last administered on 08/24/16 23:58; Admin Dose 2 MG; Start 08/23/16 at 23:00 Acetaminophen (Tylenol Tab) 650 mg Q4H PRN GTB MILD PAIN LEVEL 1-3 Last administered on 08/24/16 16:15; Admin Dose 650 MG; Start 08/23/16 at 23:00 Amiodarone HCl (Cordarone) 200 mg DAILY GTB Last administered on 09/02/16 09: 50; Admin Dose 200 MG; Start 08/24/16 at 09:00 Ascorbic Acid (Vitamin C) 500 mg DAILY GTB Last administered on 09/02/16 09:49 ; Admin Dose 500 MG; Start 08/24/16 at 09:00 Bisacodyl (Dulcolax Supp) 10 mg Q24H PRN [place] PRN; Start 08/23/16 at 23:00 Chlorhexidine Gluconate (Peridex) 15 ml Q12 MM Last administered on 09/02/16 09:49; Admin Dose 15 ML; Start 08/24/16 at 09:00 Cholecalciferol (Vitamin D) 1,000 unit DAILY GTB Last administered on 09:49; Admin Dose 1,000 UNIT; Start 08/24/16 at 09:00 Eye Lubricant (Artificial Tears Oph) 2 drop BID BOTH EYES Last administered on 09/02/16 09:49; Admin Dose 2 DROP; Start 08/24/16 at 09:00 Simethicone (Mylicon) 80 mg Q12 PRN GTB DISTENSION/GAS/BLOATING; Start 08/23/16 at 23:00 Tramadol HCl (Ultram) 50 mg BID GTB Last administered on 09/02/16 09:50; Admin Dose 50 MG; Start 08/24/16 at 09:00 Zinc Sulfate (Zinc Sulfate) 220 mg DAILY GTB Last administered on 09/02/16 09: 49; Admin Dose 220 MG; Start 08/24/16 at 09:00 Lactobacillus Acidoph/Bulgaricus (Floranex) 1 tab DAILY PO Last administered on 09/02/16 09:49; Admin Dose 1 TAB; Start 08/24/16 at 11:00 Multivitamins (Thera-Plus) 5 ml DAILY GTB Last administered on 08/31/16 11:03 ; Admin Dose 5 ML; Start 08/24/16 at 09:00; Status Future Hold Lansoprazole (Prevacid) 30 mg BID@,18 GTB Last administered on 09/02/16 18: 13; Admin Dose 30 MG; Start 08/24/16 at 06:00 Ferrous Sulfate (Feosol Liquid Cup) 330 mg BID GTB Last administered on 09:49; Admin Dose 330 MG; Start 08/24/16 at 09:00 Docusate Sodium (Colace Liquid Cup) 100 mg BID GTB Last administered on 09:49; Admin Dose 100 MG; Start 08/24/16 at 09:00 Collagenase (Santyl) 1 applic DAILY TOP Last administered on 09/02/16 09:51; Admin Dose 1 APPLIC; Start 08/24/16 at 03:30 Miscellaneous Information 1 ea NOTE XX ; Start 08/24/16 at 22:00 Glucose (Glutose) 15 gm Q15M PRN PO DECREASED GLUCOSE; Start 08/24/16 at 22:00 Glucose (Glutose) 22.5 gm Q15M PRN PO DECREASED GLUCOSE; Start 08/24/16 at 22:00 Dextrose (D50w Syringe) 25 ml Q15M PRN IV DECREASED GLUCOSE; Start 08/24/16 at 22:00 Dextrose (D50w Syringe) 50 ml Q15M PRN IV DECREASED GLUCOSE; Start 08/24/16 at 22:00 Glucagon (Glucagen) 1 mg Q15M PRN IM DECREASED GLUCOSE; Start 08/24/16 at 22:00 Glucose 15 gm 15 gm Q15M PRN BUCCAL DECREASED GLUCOSE; Start 08/24/16 at 22:00 Cefepime HCl (Maxipime 2gm/50 ml (Pmx)) 50 ml @ 100 mls/hr Q24H IVPB Last administered on 09/02/16 13:12; Admin Dose 100 MLS/HR; Start 08/26/16 at 09:00 Insulin Glargine (Lantus) 10 unit QPM SC Last administered on 09/01/16 21:47; Admin Dose 10 UNIT; Start 08/27/16 at 21:00 IV Flush 10 ml 10 ml PRN PRN IV IV PROTOCOL; Start 08/28/16 at 13:30 Linezolid 300 ml @ 300 mls/hr Q12 IVPB Last administered on 09/02/16 09:51; Admin Dose 300 MLS/HR; Start 08/29/16 at 21:00 Levofloxacin/ Dextrose (Levaquin 500mg/ D5W 100 ml (Pmx)) 100 ml @ 100 mls/hr Q48H IVPB Last administered on 09/02/16 14:11; Admin Dose 100 MLS/HR; Start at 14:30 Collagenase (Santyl) 1 applic DAILY TOP Last administered on 09/02/16 09:51; Admin Dose 1 APPLIC; Start 08/30/16 at 09:00 Insulin Aspart NOVOLOG *MILD* ALGORI... Q6 SC Last administered on 09/02/16 18 :24; Admin Dose 1 UNIT; Start 08/31/16 at 00:00 Total Parenteral Nutrition 1,000 ml @ 80 mls/hr [id number] IV Last administered on 09/02/16 09:51; Admin Dose 80 MLS/HR; Start 09/01/16 at 09:30 Potassium Chloride/Dextrose (KCl/D5W) 1,015 ml @ 100 mls/hr Q10H9M IV Last administered on 09/02/16 18:12; Admin Dose 100 MLS/HR; Start 09/01/16 at 17:00 Permethrin (Elimite 5% Cr) 1 applic Q7D TOP ; Start 09/02/16 at 17:00; Stop at 17:01 PATRICIO ELIZALDE MD Sep 02, 2016 19:36
[2016-09-02] MEDS: INSULIN GLARGINE [LANtus] 3 ML PEN SC SCH (21:52)
[2016-09-03] VITALS (26 sets, daily range): BP systolic 119–152; BP diastolic 70–90; PULSE 82–91; RESP 16–23
[2016-09-03] MEDS: LANSOPRAZOLE 30 MG CAP GTB SCH ×2 (05:39→17:59)
[2016-09-03] MEDS: INSULIN ASPART [NOVOLOG] 3 ML PEN SC SCH ×4 (05:46→20:50)
[2016-09-03 07:20] LABS: POTASSIUM 4.9 mmol/L (3.5-5.1)
[2016-09-03 07:23] LABS: CREATININE 1.14 mg/dl (0.61-1.24)
[2016-09-03 07:24] LABS: CALCIUM 7.8 mg/dl (8.4-10.2)
[2016-09-03 07:28] LABS: HEMATOCRIT 32.8 % (42.0-52.0); HEMOGLOBIN 11.1 g/dl (14.0-18.0); LYMPHOCYTES # 0.3 10^3/ul (0.8-2.9); LYMPHOCYTES % 5.3 % (15.0-51.0); MEAN CORPUSCULAR HEMOGLOBIN 29.3 pg (29.0-33.0); MEAN CORPUSCULAR HGB CONC 33.8 g/dl (32.0-37.0); MEAN CORPUSCULAR VOLUME 86.5 fl (82.0-101.0); MEAN PLATELET VOLUME 10.4 fl (7.4-10.4); MONOCYTE # 0.4 10^3/ul (0.3-0.9); MONOCYTES % 5.5 % (0.0-11.0); NEUTROPHIL # 5.7 10^3/ul (1.6-7.5); NEUTROPHILS % 89.2 % (39.0-77.0); PLATELET COUNT 214 10^3/UL (140-440); RED BLOOD COUNT 3.79 10^6/ul (4.70-6.10); RED CELL DISTRIBUTION WIDTH 17.3 % (11.5-14.5); UNCORRECTED WBC 6.4 10^3/ul (4.8-10.8); WHITE BLOOD COUNT 6.4 10^3/ul (4.8-10.8)
[2016-09-03 07:45] LABS: CONDITION 1; LH ANALYZER COMMENTS 1; SUSPECT 1
[2016-09-03] MEDS: ARTIFICIAL TEARS 15 ML OPH BOTH EYES SCH ×2 (08:47→20:41)
[2016-09-03] MEDS: COLLAGENASE 30 GM TUBE TOP SCH ×2 (08:48→08:51)
[2016-09-03] MEDS: FERROUS SULFATE 60 MG/ML 5ML CUP GTB SCH ×2 (08:48→20:41)
[2016-09-03] MEDS: CEFEPIME 2GM/50 ML (PMX) 50 ML IVPB SCH (08:48)
[2016-09-03] MEDS: DOCUSATE SODIUM 10 MG/ML (10ML CUP) GTB SCH ×2 (08:48→20:41)
[2016-09-03] MEDS: CHOLECALCIFEROL 1,000 UNIT TAB GTB SCH (08:49)
[2016-09-03] MEDS: traMADol 50 MG TAB GTB SCH ×2 (08:49→20:42)
[2016-09-03] MEDS: TPN 1,000 ML IV SCH ×2 (08:49→16:26)
[2016-09-03] MEDS: LACTOBACILLUS CHEW TAB PO SCH (08:50)
[2016-09-03] MEDS: ASCORBIC ACID 500 MG TAB GTB SCH (08:50)
[2016-09-03] MEDS: CHLORHEXIDINE GLUCONATE 15 ML UD CUP MM SCH ×2 (08:50→20:43)
[2016-09-03] MEDS: ZINC SULFATE 220 MG CAP GTB SCH (08:50)
[2016-09-03] MEDS: AMIODARONE 200 MG TAB GTB SCH (08:50)
[2016-09-03] MEDS: POTASSIUM CHLORIDE 30 MEQ in DEXTROSE 5% 1,000 ML IV SCH ×2 (09:33→20:40)
[2016-09-03 10:08] LABS: POTASSIUM 3.9 mmol/L (3.5-5.1)
[2016-09-03 10:11] LABS: CREATININE 1.21 mg/dl (0.61-1.24); PHOSPHORUS 2.5 mg/dl (2.5-4.9)
[2016-09-03 10:12] LABS: CALCIUM 8.3 mg/dl (8.4-10.2); MAGNESIUM 1.5 mg/dl (1.7-2.5)
--- NOTE | 2016-09-03 12:02 | PN ---
Date/Time of Note Date/Time of Note DATE: 09/03/16 TIME: 11:55 Assessment/Plan VTE Prophylaxis VTE Prophylaxis Intervention: SCD's Lines/Catheters IV Catheter Type (from Nrs): PICC Line Central line still needed: Yes Urinary Cath still in place: Yes Reason Cath still needed: other (indicate) Assessment/Plan Chief Complaint/Hosp Course Assessment and plan: 1. Sepsis, resolved , likely secondary to urinary tract infection, line sepsis and severe dehydration Continue IV fluid, off pressors, broad-spectrum IV antibiotics Infectious disease and security system technician been consulted 2. Urinary tract infection, Continue broad-spectrum IV antibiotics, Organism 1 PSEUDOMONAS AERUGINOSA Organism 2 PROVIDENCIA STUARTII 3. Acute renal failure, likely secondary to severe dehydration Continue IV fluids, nephrology has been consulted follow-up renal panel in a.m. 4. Severe hypernatremia, likely secondary to severe dehydration, improving Continue D5W, follow-up renal panel and electrolytes in a.m. Nephrology has been consulted 5. Hypokalemia, Repleted 6. Transaminitis, Likely secondary to severe dehydration, caution with hepatotoxic medication Follow-up liver function tests in a.m. 7. Diabetic mellitus, better controlled Continue insulin sliding scale, continue Lantus, restart diabeticsource 8. Sacral decubitus, with evidence of lower extremity decubitus as well Wound care consulted 9. Anemia, Continue iron supplementations, will transfuse PRBC if hemoglobin is less than 7.5 Status post transfusion of total 3 unit packed red blood cell , stable 10 . 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 PEG tube dysfunction, bottling equipment sales representative for consulted. Plan for upper endoscopy; and placement of a percutaneous transgastric jejunostomy tube so that we can prevent gastric leakage and also at the same time provide jejunal feeding. As per bottling equipment sales representative's recommendations 12. Feeding, at this time will hold tube feeding secondary to PEG tube dysfunction On TPN Contacted patient's family/power of ip technology transactions attorney and explained the patient's condition and decubitus ulcers Condition: Guarded We will continue monitor patient closely for recommendation management treatment as clinical course Plan to transfer to prison facility after PEG tube placement Problems: Subjective 24 Hr Interval Summary Free Text/Dictation Patient status post wound evaluation and found to have 18 wounds on his body This was discussed with his cousin is power of ip technology transactions attorney in detail No acute changes NG tube in place and the output from NG tube is 1800 cc 24 hours/ coffee-ground Exam/Review of Systems Vital Signs Vitals Vital Signs Date Time Temp Pulse Resp B/P Pulse Ox O2 Delivery O2 Flow Rate FiO2 09/03/16 11:47 97.6 91 20 130/78 97 09/03/16 11:33 30 08/30/16 20:00 Mechanical Ventilator Intake and Output 09/02/16 09/02/16 09/03/16 15:00 23:00 07:00 Intake Total 100 ml 860 ml Output Total 900 ml 700 ml Balance -800 ml 160 ml Exam .General: The patient is cachectic, minimal response to pain or verbal stimuli HEENT: Atraumatic, normocephalic. The pupils are symmetric, decubitus ulcer bilateral earlobes Neck: Trach in place Chest: Normal Lungs: Decreased breath sounds bilateral lower lung field Heart: Normal S1-S2, Regular rhythm and rate. Abdomen: Soft , nontender, minimally distended , bowel sounds are present. Abdominal wall hernia, PEG tube site leaking, erythema around PEG tube site Extremities: Nonpitting edema bilateral lower extremity, bilateral lower extremities flaccid, decubitus ulcer bilateral lower extremities Neurologic: Patient is awake , minimal respond to pain or verbal stimuli Results Result Diagram: 09/03/16 0625 09/03/16 0913 Results 24 hrs Laboratory Tests Test 09/02/16 12:34 09/02/16 16:20 09/02/16 17:21 09/02/16 21:48 Bedside Glucose 186 177 141 Stool Occult Blood POSITIVE Test 09/02/16 23:09 09/03/16 05:41 09/03/16 06:25 09/03/16 09:13 Bedside Glucose 177 180 Anion Gap 16 16 Basophils # 0.0 Basophils % 0.0 Blood Morphology Comment Blood Urea Nitrogen 43 H 46 H Calcium Level 7.8 L 8.3 L Carbon Dioxide Level 19 L 19 L Chloride Level 110 # 112 H Creatinine 1.14 1.21 Eosinophils # 0.0 Eosinophils % 0.0 Glucose Level 287 #H 149 # Hematocrit 32.8 L Hemoglobin 11.1 L Lymphocytes # 0.3 L Lymphocytes % 5.3 L Mean Corpuscular Hemoglobin 29.3 Mean Corpuscular Hemoglobin Concent 33.8 Mean Corpuscular Volume 86.5 Mean Platelet Volume 10.4 Monocytes # 0.4 Monocytes % 5.5 Neutrophils # 5.7 Neutrophils % 89.2 H Nucleated Red Blood Cells # 0.0 Nucleated Red Blood Cells % 0.0 Platelet Count 214 Potassium Level 4.9 3.9 Red Blood Count 3.79 L Red Cell Distribution Width 17.3 H Sodium Level 140 143 White Blood Count 6.4 Magnesium Level 1.5 L Phosphorus Level 2.5 Medications Medications Current Medications Ondansetron HCl (Zofran Inj) 4 mg Q6H PRN IV NAUSEA AND/OR VOMITING; Start 08/23 at 23:00 Morphine Sulfate (morphine) 2 mg Q4H PRN IV SEVERE PAIN LEVEL 7-10 Last administered on 08/24/16 23:58; Admin Dose 2 MG; Start 08/23/16 at 23:00 Acetaminophen (Tylenol Tab) 650 mg Q4H PRN GTB MILD PAIN LEVEL 1-3 Last administered on 08/24/16 16:15; Admin Dose 650 MG; Start 08/23/16 at 23:00 Amiodarone HCl (Cordarone) 200 mg DAILY GTB Last administered on 09/03/16 08: 50; Admin Dose 200 MG; Start 08/24/16 at 09:00 Ascorbic Acid (Vitamin C) 500 mg DAILY GTB Last administered on 09/03/16 08:50 ; Admin Dose 500 MG; Start 08/24/16 at 09:00 Bisacodyl (Dulcolax Supp) 10 mg Q24H PRN [place] PRN; Start 08/23/16 at 23:00 Chlorhexidine Gluconate (Peridex) 15 ml Q12 MM Last administered on 09/03/16 08:50; Admin Dose 15 ML; Start 08/24/16 at 09:00 Cholecalciferol (Vitamin D) 1,000 unit DAILY GTB Last administered on 08:49; Admin Dose 1,000 UNIT; Start 08/24/16 at 09:00 Eye Lubricant (Artificial Tears Oph) 2 drop BID BOTH EYES Last administered on 09/03/16 08:47; Admin Dose 2 DROP; Start 08/24/16 at 09:00 Simethicone (Mylicon) 80 mg Q12 PRN GTB DISTENSION/GAS/BLOATING; Start 08/23/16 at 23:00 Tramadol HCl (Ultram) 50 mg BID GTB Last administered on 09/03/16 08:49; Admin Dose 50 MG; Start 08/24/16 at 09:00 Zinc Sulfate (Zinc Sulfate) 220 mg DAILY GTB Last administered on 09/03/16 08: 50; Admin Dose 220 MG; Start 08/24/16 at 09:00 Lactobacillus Acidoph/Bulgaricus (Floranex) 1 tab DAILY PO Last administered on 09/03/16 08:50; Admin Dose 1 TAB; Start 08/24/16 at 11:00 Multivitamins (Thera-Plus) 5 ml DAILY GTB Last administered on 08/31/16 11:03 ; Admin Dose 5 ML; Start 08/24/16 at 09:00; Status Future Hold Lansoprazole (Prevacid) 30 mg BID@,18 GTB Last administered on 09/03/16 05: 39; Admin Dose 30 MG; Start 08/24/16 at 06:00 Ferrous Sulfate (Feosol Liquid Cup) 330 mg BID GTB Last administered on 08:48; Admin Dose 330 MG; Start 08/24/16 at 09:00 Docusate Sodium (Colace Liquid Cup) 100 mg BID GTB Last administered on 08:48; Admin Dose 100 MG; Start 08/24/16 at 09:00 Collagenase (Santyl) 1 applic DAILY TOP Last administered on 09/03/16 08:48; Admin Dose 1 APPLIC; Start 08/24/16 at 03:30 Miscellaneous Information 1 ea NOTE XX ; Start 08/24/16 at 22:00 Glucose (Glutose) 15 gm Q15M PRN PO DECREASED GLUCOSE; Start 08/24/16 at 22:00 Glucose (Glutose) 22.5 gm Q15M PRN PO DECREASED GLUCOSE; Start 08/24/16 at 22:00 Dextrose (D50w Syringe) 25 ml Q15M PRN IV DECREASED GLUCOSE; Start 08/24/16 at 22:00 Dextrose (D50w Syringe) 50 ml Q15M PRN IV DECREASED GLUCOSE; Start 08/24/16 at 22:00 Glucagon (Glucagen) 1 mg Q15M PRN IM DECREASED GLUCOSE; Start 08/24/16 at 22:00 Glucose 15 gm 15 gm Q15M PRN BUCCAL DECREASED GLUCOSE; Start 08/24/16 at 22:00 Cefepime HCl (Maxipime 2gm/50 ml (Pmx)) 50 ml @ 100 mls/hr Q24H IVPB Last administered on 09/03/16 08:48; Admin Dose 100 MLS/HR; Start 08/26/16 at 09:00 Insulin Glargine (Lantus) 10 unit QPM SC Last administered on 09/02/16 21:52; Admin Dose 10 UNIT; Start 08/27/16 at 21:00 IV Flush 10 ml 10 ml PRN PRN IV IV PROTOCOL; Start 08/28/16 at 13:30 Linezolid 300 ml @ 300 mls/hr Q12 IVPB Last administered on 09/02/16 21:31; Admin Dose 300 MLS/HR; Start 08/29/16 at 21:00 Levofloxacin/ Dextrose (Levaquin 500mg/ D5W 100 ml (Pmx)) 100 ml @ 100 mls/hr Q48H IVPB Last administered on 09/02/16 14:11; Admin Dose 100 MLS/HR; Start at 14:30 Collagenase (Santyl) 1 applic DAILY TOP Last administered on 09/03/16 08:51; Admin Dose 1 APPLIC; Start 08/30/16 at 09:00 Insulin Aspart NOVOLOG *MILD* ALGORI... Q6 SC Last administered on 09/03/16 05 :46; Admin Dose 1 UNIT; Start 08/31/16 at 00:00 Total Parenteral Nutrition 1,000 ml @ 80 mls/hr [id number] IV Last administered on 09/03/16 08:49; Admin Dose 80 MLS/HR; Start 09/01/16 at 09:30 Potassium Chloride/Dextrose (KCl/D5W) 1,015 ml @ 100 mls/hr Q10H9M IV Last administered on 09/03/16 09:33; Admin Dose 100 MLS/HR; Start 09/01/16 at 17:00 Permethrin (Elimite 5% Cr) 1 applic Q7D TOP Last administered on 09/02/16 21: 31; Admin Dose 1 APPLIC; Start 09/02/16 at 17:00; Stop 09/09/16 at 17:01 IAM GÓMEZ MD Sep 03, 2016 12:02
--- NOTE | 2016-09-03 12:23 | CONS ---
Date/Time of Note Date/Time of Note DATE: 09/03/16 TIME: 12:19 Consult Date/Type/Reason Admit Date/Time Aug 23, 2016 at 22:10 Initial Consult Date Type of Consultation: ID Subjective no acute changes, non communicative, lying comfortably in bed, no fevers, nad Objective Vital Signs Date Time Temp Pulse Resp B/P Pulse Ox O2 Delivery O2 Flow Rate FiO2 09/03/16 11:47 97.6 91 20 130/78 97 09/03/16 11:33 30 08/30/16 20:00 Mechanical Ventilator Intake and Output 09/02/16 09/02/16 09/03/16 15:00 23:00 07:00 Intake Total 100 ml 860 ml Output Total 900 ml 700 ml Balance -800 ml 160 ml Results/Medications Result Diagram: 09/03/16 0625 09/03/16 0913 Results 24 hrs Laboratory Tests Test 09/02/16 12:34 09/02/16 16:20 09/02/16 17:21 09/02/16 21:48 Bedside Glucose 186 177 141 Stool Occult Blood POSITIVE Test 09/02/16 23:09 09/03/16 05:41 09/03/16 06:25 09/03/16 09:13 Bedside Glucose 177 180 Anion Gap 16 16 Basophils # 0.0 Basophils % 0.0 Blood Morphology Comment Blood Urea Nitrogen 43 H 46 H Calcium Level 7.8 L 8.3 L Carbon Dioxide Level 19 L 19 L Chloride Level 110 # 112 H Creatinine 1.14 1.21 Eosinophils # 0.0 Eosinophils % 0.0 Glucose Level 287 #H 149 # Hematocrit 32.8 L Hemoglobin 11.1 L Lymphocytes # 0.3 L Lymphocytes % 5.3 L Mean Corpuscular Hemoglobin 29.3 Mean Corpuscular Hemoglobin Concent 33.8 Mean Corpuscular Volume 86.5 Mean Platelet Volume 10.4 Monocytes # 0.4 Monocytes % 5.5 Neutrophils # 5.7 Neutrophils % 89.2 H Nucleated Red Blood Cells # 0.0 Nucleated Red Blood Cells % 0.0 Platelet Count 214 Potassium Level 4.9 3.9 Red Blood Count 3.79 L Red Cell Distribution Width 17.3 H Sodium Level 140 143 White Blood Count 6.4 Magnesium Level 1.5 L Phosphorus Level 2.5 Medications Current Medications Ondansetron HCl (Zofran Inj) 4 mg Q6H PRN IV NAUSEA AND/OR VOMITING; Start 08/23 at 23:00 Morphine Sulfate (morphine) 2 mg Q4H PRN IV SEVERE PAIN LEVEL 7-10 Last administered on 08/24/16 23:58; Admin Dose 2 MG; Start 08/23/16 at 23:00 Acetaminophen (Tylenol Tab) 650 mg Q4H PRN GTB MILD PAIN LEVEL 1-3 Last administered on 08/24/16 16:15; Admin Dose 650 MG; Start 08/23/16 at 23:00 Amiodarone HCl (Cordarone) 200 mg DAILY GTB Last administered on 09/03/16 08: 50; Admin Dose 200 MG; Start 08/24/16 at 09:00 Ascorbic Acid (Vitamin C) 500 mg DAILY GTB Last administered on 09/03/16 08:50 ; Admin Dose 500 MG; Start 08/24/16 at 09:00 Bisacodyl (Dulcolax Supp) 10 mg Q24H PRN NV PRN; Start 08/23/16 at 23:00 Chlorhexidine Gluconate (Peridex) 15 ml Q12 MM Last administered on 09/03/16 08:50; Admin Dose 15 ML; Start 08/24/16 at 09:00 Cholecalciferol (Vitamin D) 1,000 unit DAILY GTB Last administered on 08:49; Admin Dose 1,000 UNIT; Start 08/24/16 at 09:00 Eye Lubricant (Artificial Tears Oph) 2 drop BID BOTH EYES Last administered on 09/03/16 08:47; Admin Dose 2 DROP; Start 08/24/16 at 09:00 Simethicone (Mylicon) 80 mg Q12 PRN GTB DISTENSION/GAS/BLOATING; Start 08/23/16 at 23:00 Tramadol HCl (Ultram) 50 mg BID GTB Last administered on 09/03/16 08:49; Admin Dose 50 MG; Start 08/24/16 at 09:00 Zinc Sulfate (Zinc Sulfate) 220 mg DAILY GTB Last administered on 09/03/16 08: 50; Admin Dose 220 MG; Start 08/24/16 at 09:00 Lactobacillus Acidoph/Bulgaricus (Floranex) 1 tab DAILY PO Last administered on 09/03/16 08:50; Admin Dose 1 TAB; Start 08/24/16 at 11:00 Multivitamins (Thera-Plus) 5 ml DAILY GTB Last administered on 08/31/16 11:03 ; Admin Dose 5 ML; Start 08/24/16 at 09:00; Status Future Hold Lansoprazole (Prevacid) 30 mg BID@,18 GTB Last administered on 09/03/16 05: 39; Admin Dose 30 MG; Start 08/24/16 at 06:00 Ferrous Sulfate (Feosol Liquid Cup) 330 mg BID GTB Last administered on 08:48; Admin Dose 330 MG; Start 08/24/16 at 09:00 Docusate Sodium (Colace Liquid Cup) 100 mg BID GTB Last administered on 08:48; Admin Dose 100 MG; Start 08/24/16 at 09:00 Collagenase (Santyl) 1 applic DAILY TOP Last administered on 09/03/16 08:48; Admin Dose 1 APPLIC; Start 08/24/16 at 03:30 Miscellaneous Information 1 ea NOTE XX ; Start 08/24/16 at 22:00 Glucose (Glutose) 15 gm Q15M PRN PO DECREASED GLUCOSE; Start 08/24/16 at 22:00 Glucose (Glutose) 22.5 gm Q15M PRN PO DECREASED GLUCOSE; Start 08/24/16 at 22:00 Dextrose (D50w Syringe) 25 ml Q15M PRN IV DECREASED GLUCOSE; Start 08/24/16 at 22:00 Dextrose (D50w Syringe) 50 ml Q15M PRN IV DECREASED GLUCOSE; Start 08/24/16 at 22:00 Glucagon (Glucagen) 1 mg Q15M PRN IM DECREASED GLUCOSE; Start 08/24/16 at 22:00 Glucose 15 gm 15 gm Q15M PRN BUCCAL DECREASED GLUCOSE; Start 08/24/16 at 22:00 Cefepime HCl (Maxipime 2gm/50 ml (Pmx)) 50 ml @ 100 mls/hr Q24H IVPB Last administered on 09/03/16 08:48; Admin Dose 100 MLS/HR; Start 08/26/16 at 09:00 Insulin Glargine (Lantus) 10 unit QPM SC Last administered on 09/02/16 21:52; Admin Dose 10 UNIT; Start 08/27/16 at 21:00 IV Flush 10 ml 10 ml PRN PRN IV IV PROTOCOL; Start 08/28/16 at 13:30 Linezolid 300 ml @ 300 mls/hr Q12 IVPB Last administered on 09/02/16 21:31; Admin Dose 300 MLS/HR; Start 08/29/16 at 21:00 Levofloxacin/ Dextrose (Levaquin 500mg/ D5W 100 ml (Pmx)) 100 ml @ 100 mls/hr Q48H IVPB Last administered on 09/02/16 14:11; Admin Dose 100 MLS/HR; Start at 14:30 Collagenase (Santyl) 1 applic DAILY TOP Last administered on 09/03/16 08:51; Admin Dose 1 APPLIC; Start 08/30/16 at 09:00 Insulin Aspart NOVOLOG *MILD* ALGORI... Q6 SC Last administered on 09/03/16 05 :46; Admin Dose 1 UNIT; Start 08/31/16 at 00:00 Total Parenteral Nutrition 1,000 ml @ 80 mls/hr [id number] IV Last administered on 09/03/16 08:49; Admin Dose 80 MLS/HR; Start 09/01/16 at 09:30 Potassium Chloride/Dextrose (KCl/D5W) 1,015 ml @ 100 mls/hr Q10H9M IV Last administered on 09/03/16 09:33; Admin Dose 100 MLS/HR; Start 09/01/16 at 17:00 Permethrin (Elimite 5% Cr) 1 applic Q7D TOP Last administered on 09/02/16 21: 31; Admin Dose 1 APPLIC; Start 09/02/16 at 17:00; Stop 09/09/16 at 17:01 Assessment/Plan Chief Complaint/Hosp Course ANTIMICROBIALS: 1. Zyvox. 2. Cefepime. 3. Levaquin PHYSICAL EXAMINATION: GENERAL: Chronically ill-appearing, elderly man who is in no distress. HEENT: Head atraumatic, normocephalic. Sclerae anicteric. Buccal mucosa dry. NECK: Supple. Tracheostomy present. CHEST: Rise symmetrical. Breath sounds diminished to bases. HEART: S1, S2. ABDOMEN: Soft. Bowel tones present. EXTREMITIES: With multiple decubitus. SKIN: No jaundice, no cyanosis. The patient has unstageable sacral wound. ASSESSMENT: 1. S/p sepsis with shock. 3. Methicillin-resistant Staphylococcus aureus bacteremia, likely secondary to #3. 4. Unstageable sacral wound with culture growing methicillin-resistant Staphylococcus aureus, vancomycin-resistant enterococcus Klebsiella pneumoniae and Proteus mirabilis. 5. Polymicrobial urinary tract infection. 6. Healthcare-associated pneumonia. 7. Chronic encephalopathy. 8. Transaminitis. 9. Acute renal failure. 10. Rash==> s/p empiric Elimite PLAN: The patient remains hemodynamically stable, repeat bld cx 08/27 negative, continue present care, abx for 7 more days, await for PEG SARAH RN Problems: CHRISS RIVAS NP Sep 03, 2016 12:23
[2016-09-03] MEDS: LINEZOLID 600 MG/D5W (PMX) 300 ML IVPB SCH ×2 (12:30→20:43)
--- NOTE | 2016-09-03 15:17 | PN ---
DATE: 09/03/2016 SUBJECTIVE: The patient remains relatively stable, no new events, continues mechanical ventilation. Remains unresponsive. PHYSICAL EXAMINATION: VITAL SIGNS: Temperature 97, pulse 91, blood pressure 119/70, O2 saturation 96% on FIO2 of 30%. NECK: Trach site clean and intact. CARDIAC: S1, S2, no added sounds or murmurs. CHEST: Diminished air entry bilaterally with rhonchi. ABDOMEN: Soft, nontender. No guarding or rebound. EXTREMITIES: No cyanosis, clubbing or edema. NEUROLOGIC: Generalized weakness. LABORATORY DATA: White count 6.4, hemoglobin 11.1, platelets 214, BUN 46, creatinine 1.21. INR 1.2 1. Stool occult blood positive. IMPRESSION AND PLAN: 1. Vent dependent respiratory failure. 2. Chronic encephalopathy. 3. Significant G-tube bleeding leak. 4. Persistent pseudomonas and providencia urinary tract infection. 5. Chronic encephalopathy. 6. Polymicrobial sepsis from wounds. PLAN: 1. Leaky G-tube site now changed to a percutaneous jejunostomy tube. 2. Continue on supplemental O2 vent support. 3. Resume tube feeding per GI. 4. DVT and GI prophylaxis. Dictated By: NICK COBB/LESLY Conf#: [id number] DID#: [id number]
[2016-09-03] MEDS ORDERED: MAGNESIUM SULFATE 3 GM in SOD CHLORIDE 0.9% 100 ML IVPB ONE (15:30)
--- NOTE | 2016-09-03 15:43 | CONS ---
Date/Time of Note Date/Time of Note DATE: 09/03/16 TIME: 15:42 Assessment/Plan Assessment/Plan Chief Complaint/Hosp Course 1. Acute hypernatremia free water deficit 2. Acute kidney injury on chronic kidney disease secondary to previous ischemic acute tubular necrosis from severe prerenal azotemia. 3. Severe prerenal azotemia 4. Sepsis secondary to urinary tract infection. 5. History of recent admission. 6. 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 7. Chronic respiratory failure, status post tracheostomy and status post PEG tube placement. 8 hypokalemia plan on tpn Problems: Consultation Date/Type/Reason Admit Date/Time Aug 23, 2016 at 22:10 Type of Consultation: renal 24 HR Interval Summary Subjective hx not possible: pt non-verbal Exam/Review of Systems Vital Signs Vitals Vital Signs Date Time Temp Pulse Resp B/P Pulse Ox O2 Delivery O2 Flow Rate FiO2 09/03/16 15:35 85 20 99 30 09/03/16 15:20 97.7 137/85 09/03/16 12:54 Trach Collar Intake and Output 09/02/16 09/02/16 09/03/16 15:00 23:00 07:00 Intake Total 100 ml 860 ml Output Total 900 ml 700 ml Balance -800 ml 160 ml Exam Respiratory: clear to auscultation Cardiovascular: regular rate and rhythm Gastrointestinal: soft Musculoskeletal: nl extremities to inspection Extremities: normal pulses Results Result Diagram: 09/03/16 0625 09/03/16 0913 Results 24 hrs Laboratory Tests Test 09/02/16 16:20 09/02/16 17:21 09/02/16 21:48 09/02/16 23:09 Stool Occult Blood POSITIVE Bedside Glucose 177 141 177 Test 09/03/16 05:41 09/03/16 06:25 09/03/16 09:13 09/03/16 12:22 Bedside Glucose 180 385 H Anion Gap 16 16 Basophils # 0.0 Basophils % 0.0 Blood Morphology Comment Blood Urea Nitrogen 43 H 46 H Calcium Level 7.8 L 8.3 L Carbon Dioxide Level 19 L 19 L Chloride Level 110 # 112 H Creatinine 1.14 1.21 Eosinophils # 0.0 Eosinophils % 0.0 Glucose Level 287 #H 149 # Hematocrit 32.8 L Hemoglobin 11.1 L Lymphocytes # 0.3 L Lymphocytes % 5.3 L Mean Corpuscular Hemoglobin 29.3 Mean Corpuscular Hemoglobin Concent 33.8 Mean Corpuscular Volume 86.5 Mean Platelet Volume 10.4 Monocytes # 0.4 Monocytes % 5.5 Neutrophils # 5.7 Neutrophils % 89.2 H Nucleated Red Blood Cells # 0.0 Nucleated Red Blood Cells % 0.0 Platelet Count 214 Potassium Level 4.9 3.9 Red Blood Count 3.79 L Red Cell Distribution Width 17.3 H Sodium Level 140 143 White Blood Count 6.4 Magnesium Level 1.5 L Phosphorus Level 2.5 Medications Medications Current Medications Ondansetron HCl (Zofran Inj) 4 mg Q6H PRN IV NAUSEA AND/OR VOMITING; Start 08/23 at 23:00 Morphine Sulfate (morphine) 2 mg Q4H PRN IV SEVERE PAIN LEVEL 7-10 Last administered on 08/24/16 23:58; Admin Dose 2 MG; Start 08/23/16 at 23:00 Acetaminophen (Tylenol Tab) 650 mg Q4H PRN GTB MILD PAIN LEVEL 1-3 Last administered on 08/24/16 16:15; Admin Dose 650 MG; Start 08/23/16 at 23:00 Amiodarone HCl (Cordarone) 200 mg DAILY GTB Last administered on 09/03/16 08: 50; Admin Dose 200 MG; Start 08/24/16 at 09:00 Ascorbic Acid (Vitamin C) 500 mg DAILY GTB Last administered on 09/03/16 08:50 ; Admin Dose 500 MG; Start 08/24/16 at 09:00 Bisacodyl (Dulcolax Supp) 10 mg Q24H PRN MA PRN; Start 08/23/16 at 23:00 Chlorhexidine Gluconate (Peridex) 15 ml Q12 MM Last administered on 09/03/16 08:50; Admin Dose 15 ML; Start 08/24/16 at 09:00 Cholecalciferol (Vitamin D) 1,000 unit DAILY GTB Last administered on 08:49; Admin Dose 1,000 UNIT; Start 08/24/16 at 09:00 Eye Lubricant (Artificial Tears Oph) 2 drop BID BOTH EYES Last administered on 09/03/16 08:47; Admin Dose 2 DROP; Start 08/24/16 at 09:00 Simethicone (Mylicon) 80 mg Q12 PRN GTB DISTENSION/GAS/BLOATING; Start 08/23/16 at 23:00 Tramadol HCl (Ultram) 50 mg BID GTB Last administered on 09/03/16 08:49; Admin Dose 50 MG; Start 08/24/16 at 09:00 Zinc Sulfate (Zinc Sulfate) 220 mg DAILY GTB Last administered on 09/03/16 08: 50; Admin Dose 220 MG; Start 08/24/16 at 09:00 Lactobacillus Acidoph/Bulgaricus (Floranex) 1 tab DAILY PO Last administered on 09/03/16 08:50; Admin Dose 1 TAB; Start 08/24/16 at 11:00 Multivitamins (Thera-Plus) 5 ml DAILY GTB Last administered on 08/31/16 11:03 ; Admin Dose 5 ML; Start 08/24/16 at 09:00; Status Future Hold Lansoprazole (Prevacid) 30 mg BID@18 GTB Last administered on 09/03/16 05: 39; Admin Dose 30 MG; Start 08/24/16 at 06:00 Ferrous Sulfate (Feosol Liquid Cup) 330 mg BID GTB Last administered on 08:48; Admin Dose 330 MG; Start 08/24/16 at 09:00 Docusate Sodium (Colace Liquid Cup) 100 mg BID GTB Last administered on 08:48; Admin Dose 100 MG; Start 08/24/16 at 09:00 Collagenase (Santyl) 1 applic DAILY TOP Last administered on 09/03/16 08:48; Admin Dose 1 APPLIC; Start 08/24/16 at 03:30 Miscellaneous Information 1 ea NOTE XX ; Start 08/24/16 at 22:00 Glucose (Glutose) 15 gm Q15M PRN PO DECREASED GLUCOSE; Start 08/24/16 at 22:00 Glucose (Glutose) 22.5 gm Q15M PRN PO DECREASED GLUCOSE; Start 08/24/16 at 22:00 Dextrose (D50w Syringe) 25 ml Q15M PRN IV DECREASED GLUCOSE; Start 08/24/16 at 22:00 Dextrose (D50w Syringe) 50 ml Q15M PRN IV DECREASED GLUCOSE; Start 08/24/16 at 22:00 Glucagon (Glucagen) 1 mg Q15M PRN IM DECREASED GLUCOSE; Start 08/24/16 at 22:00 Glucose 15 gm 15 gm Q15M PRN BUCCAL DECREASED GLUCOSE; Start 08/24/16 at 22:00 Cefepime HCl (Maxipime 2gm/50 ml (Pmx)) 50 ml @ 100 mls/hr Q24H IVPB Last administered on 09/03/16 08:48; Admin Dose 100 MLS/HR; Start 08/26/16 at 09:00 Insulin Glargine (Lantus) 10 unit QPM SC Last administered on 09/02/16 21:52; Admin Dose 10 UNIT; Start 08/27/16 at 21:00 IV Flush 10 ml 10 ml PRN PRN IV IV PROTOCOL; Start 08/28/16 at 13:30 Linezolid 300 ml @ 300 mls/hr Q12 IVPB Last administered on 09/03/16 12:30; Admin Dose 300 MLS/HR; Start 08/29/16 at 21:00 Levofloxacin/ Dextrose (Levaquin 500mg/ D5W 100 ml (Pmx)) 100 ml @ 100 mls/hr Q48H IVPB Last administered on 09/02/16 14:11; Admin Dose 100 MLS/HR; Start at 14:30 Collagenase (Santyl) 1 applic DAILY TOP Last administered on 09/03/16 08:51; Admin Dose 1 APPLIC; Start 08/30/16 at 09:00 Insulin Aspart NOVOLOG *MILD* ALGORI... Q6 SC Last administered on 09/03/16 12 :30; Admin Dose 7 UNIT; Start 08/31/16 at 00:00 Total Parenteral Nutrition 1,000 ml @ 80 mls/hr [id number] IV Last administered on 09/03/16 08:49; Admin Dose 80 MLS/HR; Start 09/01/16 at 09:30 Potassium Chloride/Dextrose (KCl/D5W) 1,015 ml @ 100 mls/hr Q10H9M IV Last administered on 09/03/16 09:33; Admin Dose 100 MLS/HR; Start 09/01/16 at 17:00 Permethrin 1 applic 1 applic Q7D TOP Last administered on 09/02/16 21:31; Admin Dose 1 APPLIC; Start 09/02/16 at 17:00; Stop 09/09/16 at 17:01 Magnesium Sulfate/ Sodium Chloride (Magnesium Sulfate/NS) 106 ml @ 35.333 mls/ hr ONCE ONCE IVPB ; Start 09/03/16 at 15:30; Stop 09/03/16 at 18:29 PATRICIO ELIZALDE MD Sep 03, 2016 15:43
--- NOTE | 2016-09-03 17:52 | GILP ---
DATE OF PROCEDURE: 09/03/2016 PREOPERATIVE DIAGNOSIS: 1. The patient has an infected gastrostomy, hence, it was removed. Now patient needs a new percuta neous endoscopic gastrostomy tube for long-term nutritional support. 2. History of coffee-ground emesis with severe anemia, rule out bleeding ulcer disease, arterioveno us malformation, etc. POSTOPERATIVE DIAGNOSES: 1. There is evidence of a gastric ulcer noted in the upper body of the stomach, 2 Hemoclips were ap plied. 2. Percutaneous endoscopic gastrostomy tube was placed. 3. Diffuse gastritis. NAME OF PROCEDURE: Esophagogastroduodenoscopy, percutaneous endoscopic gastrostomy tube placement a nd deployment of the 2 hemoclips and at the gastric ulcer with stigmata of bleeding. DESCRIPTION OF PROCEDURE: After informed written consent was obtained, the patient was asked to lie on the left lateral side. Intravenous anesthesia was given by anesthesiologist, Dr. Hussein. Wh ile the patient was somnolent, the Olympus video upper endoscope was introduced into the oropharynx, then into the esophagus. Esophagus appeared normal with minimal esophagitis. Scope at this time w as advanced into the stomach. Stomach showed evidence of old gastrostomy site in place, no big ulce r noted in this area. Another gastric ulcer with a clot sitting on this ulcer was noted in the uppe r body of the stomach. Multiple small erosions were noted. Diffuse gastritis was noted. At this t liz, after cleaning the old gastrostomy site with Betadine and alcohol, a guidewire was inserted th rough the gastrostomy into the stomach and the guidewire was grabbed with a polypectomy snare and th en it was brought out through the mouth along with the endoscope. To this end of the guidewire, a # 20 Microvasive G-tube was tied in a loop fashion and then it was brought out through the abdominal w all incision. Retention bumper was placed over the G-tube close to the skin and the tapered end of the gastrostomy tube was cut and the adapter was placed. Scope was reintroduced. The ulcer which l ooked like a clot was sitting on it in the upper body of the stomach measured about 7 mm in linear d imension. This area, I thought was the source of the bleeding. Hence, I applied 2 Hemoclips to pre vent further bleeding and significant gastritis was noted through the rest of the stomach. Scope at this time was withdrawn. Duodenum appeared normal and at this time, procedure was terminated. PLAN: Recommend starting G-tube feeding in a.m. Dictated By: ERNA HUGGINS/NTS Conf#: [id number] DID#: [id number] CC: KORTNEY ERWIN MD;*EndCC*
[2016-09-03] MEDS: INSULIN GLARGINE [LANtus] 3 ML PEN SC SCH (20:54)
[2016-09-04] VITALS (19 sets, daily range): BP systolic 102–153; BP diastolic 66–81; PULSE 81–88; RESP 16–24
[2016-09-04] MEDS: TPN 1,000 ML IV SCH ×2 (03:30→16:00)
[2016-09-04] MEDS: POTASSIUM CHLORIDE 30 MEQ in DEXTROSE 5% 1,000 ML IV SCH ×2 (05:12→16:03)
[2016-09-04] MEDS: LANSOPRAZOLE 30 MG CAP GTB SCH ×2 (05:12→17:53)
[2016-09-04] MEDS: INSULIN ASPART [NOVOLOG] 3 ML PEN SC SCH ×3 (05:13→17:54)
[2016-09-04 07:33] LABS: CREATININE 1.03 mg/dl (0.61-1.24)
[2016-09-04 07:34] LABS: CALCIUM 7.9 mg/dl (8.4-10.2); MAGNESIUM 2.3 mg/dl (1.7-2.5); PHOSPHORUS 2.6 mg/dl (2.5-4.9); POTASSIUM 4.1 mmol/L (3.5-5.1)
[2016-09-04] MEDS: DOCUSATE SODIUM 10 MG/ML (10ML CUP) GTB SCH (09:57)
[2016-09-04] MEDS: ARTIFICIAL TEARS 15 ML OPH BOTH EYES SCH (09:57)
[2016-09-04] MEDS: ASCORBIC ACID 500 MG TAB GTB SCH (09:59)
[2016-09-04] MEDS: FERROUS SULFATE 60 MG/ML 5ML CUP GTB SCH (09:59)
[2016-09-04] MEDS: AMIODARONE 200 MG TAB GTB SCH (09:59)
[2016-09-04] MEDS: LACTOBACILLUS CHEW TAB PO SCH (09:59)
[2016-09-04] MEDS: ZINC SULFATE 220 MG CAP GTB SCH (09:59)
[2016-09-04] MEDS: CHLORHEXIDINE GLUCONATE 15 ML UD CUP MM SCH (09:59)
[2016-09-04] MEDS: CHOLECALCIFEROL 1,000 UNIT TAB GTB SCH (09:59)
[2016-09-04] MEDS: LINEZOLID 600 MG/D5W (PMX) 300 ML IVPB SCH (10:00)
[2016-09-04] MEDS: CEFEPIME 2GM/50 ML (PMX) 50 ML IVPB SCH (10:00)
[2016-09-04] MEDS: COLLAGENASE 30 GM TUBE TOP SCH ×2 (10:01→10:02)
[2016-09-04] MEDS: traMADol 50 MG TAB GTB SCH (10:08)
--- NOTE | 2016-09-04 12:03 | DS ---
Date/Time of Note Date/Time of Note DATE: 09/04/16 TIME: 11:51 Discharge Summary Admission/Discharge Info Admit Date/Time Aug 23, 2016 at 22:10 Discharge Date/Time 09/04/16 Final Diagnosis DISCHARGE DIAGNOSES: 1. Sepsis secondary to urinary tract infection, line sepsis, severe dehydration and from sacral decubitus. The patient is status post sepsis protocol, IV fluids and antibiotics. Infectious disease doctor was consulted and his PICC line was removed. 2. Urinary tract infection on broad-spectrum IV antibiotics. 3. Acute renal insufficiency, improved status post IV fluid. 4. Severe hypernatremia is likely secondary to severe dehydration, improved status with D5W. Nephrology was consulted. 5. Hypokalemia, repleted. 6. Transaminitis secondary to severe dehydration and sepsis. 7. Diabetes mellitus, better controlled. Continue insulin. 8. Unstageable sacral decubitus and evidence of lower extremity decubitus as well. Wound care was consulted. 9. Anemia, status post transfusion during the course of hospitalization, total of 3 packs of red blood cells. 10. Percutaneous endoscopic gastrotomy tube dysfunction. GI was consulted. Status post PEG tube placement 11. Ventilator-dependent respiratory failure, hypoxemia. Continue vent management. 12. Hospital-acquired pneumonia. Continue IV antibiotics. 13. Chronic encephalopathy. 14. Methicillin-resistant Staphylococcus aureus bacteremia. 15. Unstageable sacral wound with culture growing methicillin-resistant Staphylococcus aureus, vancomycin-resistant Enterococcus, Klebsiella pneumoniae , Proteus mirabilis. Infectious disease doctor was consulted. 16. Polymicrobial urinary tract infection. Hospital Course Please see my discharge summary which was done on 08/31/2016 This addendum for the discharge summary from 08/31/2016 Patient discharge was placed on hold secondary to placement issue and prison facility were not able to accept the patient secondary to having NG tube. Due to this patient continued to be treated on broad-spectrum IV antibiotics and was continued to be seen and evaluated by the inspector multifocal lens, medicine team, vascular physician, infectious disease and belt picker. On after discussing the PEG tube placement with patient power of staff attorney and obtain a consent on 09/03/2016 patient was taken to GI lab for upper endoscopy and evaluation and PEG tube replacement. It was found that the patient has an infected gastrostomy, hence, it was removed and a new percutaneous endoscopic gastrostomy tube for long-term nutritional support was placed. Patient also had history of coffee-ground emesis with severe anemia and upon evaluation by endoscopy he was found to have evidence of a gastric ulcer noted in the upper body of the stomach with diffuse gastritis., 2 Hemoclips were applied. Patient was then taken to recovery room and has been continued on broad-spectrum IV antibiotics, TPN and IV fluids. The PEG tube feeding has been started and TPN is scheduled to be discontinued prior to discharge. I have had several extensive talk with patient's power of staff attorney over the phone and in person regarding patient's guarded condition. Patient has multiple to be exact 18 decubitus ulcer which the sacral decubitus is unstageable and wound care has been consulted as has been taking care of this issue although due to severity of this decubitus ulcer patient will continue to suffer from these ulcers. This was discussed with patient's power of staff attorney in detail Patient will be discharged to prison facility today for continuation of IV antibiotics, IV fluid and wound care Condition guarded Home Meds Active Scripts Insulin Glargine* (Lantus*) 100 Unit/Ml Soln, 10 UNIT SC QPM for 60 Days Prov:IAM GÓMEZ MD 08/30/16 Reported Medications [Ferrous Sulfate] No Conflict Check, 7.5 ML GTB BID 08/23/16 Zinc Sulfate* (Zinc Sulfate*) 220 Mg Tablet, 220 MG GTB DAILY, TAB 08/23/16 Cholecalciferol* (Vitamin D3*) 1,000 Unit Tablet, 1000 UNIT GTB DAILY, TAB 08/23/16 Ascorbic Acid* (Vitamin C* Liq) 500 Mg/5 Ml Syrup, 500 MG GTB DAILY, ML 08/23/16 Acetaminophen* (Tylenol*) 325 Mg Tablet, 650 MG GTB Q4H Y for MILD PAIN LEVEL 1- 3, TAB FOR FEVER AND TRACH TUBE CHANGE 08/23/16 Tramadol Hcl* (Ultram*) 50 Mg Tablet, 50 MG GTB BID, TAB 08/23/16 Omeprazole* (Omeprazole*) 40 Mg Capsule., 40 MG GTB BID, #30 CAP 08/23/16 Multivitamin with Minerals (Multivitamins with Minerals) 1 Each Tablet, 1 EACH GTB DAILY, TAB 08/23/16 Bisacodyl* (Bisacodyl*) 10 Mg Supp, 10 MG LA Q24H Y for PRN, SUPP 08/23/16 Docusate Sodium* (Docusate Sodium*) 100 Mg Capsule, 100 MG GTB BID, #60 CAP 08/23/16 Chlorhexidine Gluconate (Paroex) 473 Ml Mouthwash, 473 ML MM Q12, BOTTLE 08/23/16 Dextran/Hypromellose/Glycerin (Artificial Tears Drops) 15 Ml Drops, 2 DROP BOTH EYES BID, EA 08/23/16 Amiodarone Hcl* (Amiodarone Hcl*) 200 Mg Tablet, 200 MG GTB DAILY, #30 TAB HOLD IF AP BELOW 60 08/23/16 Albuterol Sulfate* (Albuterol Sulfate* Neb) 0.083%-3 Ml Neb, 2.5 MG NEB Q3H Y for WHEEZING AND SOB, #30 VIAL 08/23/16 Acidophilus/Pectin, [place] (ACIDOPHILUS PROBIOTIC CAPSULE) 1 Each Capsule, 1 EACH GTB DAILY, CAP 08/23/16 Discontinued Reported Medications Acetaminophen* (Tylenol*) 500 Mg Tab, 1000 MG GTB Q4H Y for PAIN 4-01/25, TAB 08/23/16 Simethicone* (Anti-Gas/80*) 80 Mg Tab.chew, 80 MG GTB Q12 Y for DISTENSION/GAS/ BLOATING, TAB.CHEW 08/23/16 Insulin Glargine* (Lantus*) 100 Unit/Ml Soln, 15 UNIT SC DAILY, #1 VIAL 08/23/16 Albuterol Sulfate* (Albuterol Sulfate* Neb) 0.083%-3 Ml Neb, 2.5 MG NEB Q6 Y for WHEEZING AND SOB, #30 VIAL TAKE WITH ATROVENT 0.5MG 08/23/16 Pending Labs Laboratory Tests Test 09/03/16 12:22 09/03/16 17:38 09/03/16 20:49 09/04/16 05:08 Bedside Glucose 385mg/dL (70-220) 127mg/dL (70-220) 132mg/dL (70-220) 118mg/dL (70-220) Test 09/04/16 06:20 Anion Gap 15 (8-16) Blood Urea Nitrogen 43mg/dl (7-20) Calcium Level 7.9mg/dl (8.4-10.2) Carbon Dioxide Level 20mmol/L (21-31) Chloride Level 108mmol/L (97-110) Creatinine 1.03mg/dl (0.61-1.24) Glucose Level 124mg/dl (70-220) Magnesium Level 2.3mg/dl (1.7-2.5) Phosphorus Level 2.6mg/dl (2.5-4.9) Potassium Level 4.1mmol/L (3.5-5.1) Sodium Level 139mmol/L (135-144) IAM GÓMEZ MD Sep 04, 2016 12:03
--- NOTE | 2016-09-04 14:41 | CONS ---
Date/Time of Note Date/Time of Note DATE: 09/04/16 TIME: 14:40 Consult Date/Type/Reason Admit Date/Time Aug 23, 2016 at 22:10 Type of Consultation: Pulm Subjective Comfortable Objective Vital Signs Date Time Temp Pulse Resp B/P Pulse Ox O2 Delivery O2 Flow Rate FiO2 09/04/16 13:34 85 16 99 30 09/04/16 08:04 97.6 102/66 09/03/16 12:54 Trach Collar Intake and Output 09/03/16 09/03/16 09/04/16 15:00 23:00 07:00 Intake Total 0 ml 1515 ml Output Total 2000 ml 1000 ml Balance -2000 ml 515 ml PHYSICAL EXAMINATION: VITAL SIGNS: NECK: Trach site clean and intact. CARDIAC: S1, S2, no added sounds or murmurs. CHEST: Diminished air entry bilaterally with rhonchi. ABDOMEN: Soft, nontender. No guarding or rebound. EXTREMITIES: No cyanosis, clubbing or edema. NEUROLOGIC: Generalized weakness. Results/Medications Result Diagram: 09/03/16 0625 09/04/16 0620 Results 24 hrs Laboratory Tests Test 09/03/16 17:38 09/03/16 20:49 09/04/16 05:08 09/04/16 06:20 Bedside Glucose 127 132 118 Anion Gap 15 Blood Urea Nitrogen 43 H Calcium Level 7.9 L Carbon Dioxide Level 20 L Chloride Level 108 Creatinine 1.03 Glucose Level 124 Magnesium Level 2.3 Phosphorus Level 2.6 Potassium Level 4.1 Sodium Level 139 Test 09/04/16 12:01 Bedside Glucose 148 Medications Current Medications Ondansetron HCl (Zofran Inj) 4 mg Q6H PRN IV NAUSEA AND/OR VOMITING; Start 08/23 at 23:00 Morphine Sulfate (morphine) 2 mg Q4H PRN IV SEVERE PAIN LEVEL 7-10 Last administered on 08/24/16 23:58; Admin Dose 2 MG; Start 08/23/16 at 23:00 Acetaminophen (Tylenol Tab) 650 mg Q4H PRN GTB MILD PAIN LEVEL 1-3 Last administered on 08/24/16 16:15; Admin Dose 650 MG; Start 08/23/16 at 23:00 Amiodarone HCl (Cordarone) 200 mg DAILY GTB Last administered on 09/04/16 09: 59; Admin Dose 200 MG; Start 08/24/16 at 09:00 Ascorbic Acid (Vitamin C) 500 mg DAILY GTB Last administered on 09/04/16 09:59 ; Admin Dose 500 MG; Start 08/24/16 at 09:00 Bisacodyl (Dulcolax Supp) 10 mg Q24H PRN [place] PRN; Start 08/23/16 at 23:00 Chlorhexidine Gluconate (Peridex) 15 ml Q12 MM Last administered on 09/04/16 09:59; Admin Dose 15 ML; Start 08/24/16 at 09:00 Cholecalciferol (Vitamin D) 1,000 unit DAILY GTB Last administered on 09:59; Admin Dose 1,000 UNIT; Start 08/24/16 at 09:00 Eye Lubricant (Artificial Tears Oph) 2 drop BID BOTH EYES Last administered on 09/04/16 09:57; Admin Dose 2 DROP; Start 08/24/16 at 09:00 Simethicone (Mylicon) 80 mg Q12 PRN GTB DISTENSION/GAS/BLOATING; Start 08/23/16 at 23:00 Tramadol HCl (Ultram) 50 mg BID GTB Last administered on 09/04/16 10:08; Admin Dose 50 MG; Start 08/24/16 at 09:00 Zinc Sulfate (Zinc Sulfate) 220 mg DAILY GTB Last administered on 09/04/16 09: 59; Admin Dose 220 MG; Start 08/24/16 at 09:00 Lactobacillus Acidoph/Bulgaricus (Floranex) 1 tab DAILY PO Last administered on 09/04/16 09:59; Admin Dose 1 TAB; Start 08/24/16 at 11:00 Multivitamins (Thera-Plus) 5 ml DAILY GTB Last administered on 08/31/16 11:03 ; Admin Dose 5 ML; Start 08/24/16 at 09:00; Status Future Hold Lansoprazole (Prevacid) 30 mg BID@ GTB Last administered on 09/04/16 05: 12; Admin Dose 30 MG; Start 08/24/16 at 06:00 Ferrous Sulfate (Feosol Liquid Cup) 330 mg BID GTB Last administered on 09:59; Admin Dose 330 MG; Start 08/24/16 at 09:00 Docusate Sodium (Colace Liquid Cup) 100 mg BID GTB Last administered on 09:57; Admin Dose 100 MG; Start 08/24/16 at 09:00 Collagenase (Santyl) 1 applic DAILY TOP Last administered on 09/04/16 10:01; Admin Dose 1 APPLIC; Start 08/24/16 at 03:30 Miscellaneous Information 1 ea NOTE XX ; Start 08/24/16 at 22:00 Glucose (Glutose) 15 gm Q15M PRN PO DECREASED GLUCOSE; Start 08/24/16 at 22:00 Glucose (Glutose) 22.5 gm Q15M PRN PO DECREASED GLUCOSE; Start 08/24/16 at 22:00 Dextrose (D50w Syringe) 25 ml Q15M PRN IV DECREASED GLUCOSE; Start 08/24/16 at 22:00 Dextrose (D50w Syringe) 50 ml Q15M PRN IV DECREASED GLUCOSE; Start 08/24/16 at 22:00 Glucagon (Glucagen) 1 mg Q15M PRN IM DECREASED GLUCOSE; Start 08/24/16 at 22:00 Glucose 15 gm 15 gm Q15M PRN BUCCAL DECREASED GLUCOSE; Start 08/24/16 at 22:00 Cefepime HCl (Maxipime 2gm/50 ml (Pmx)) 50 ml @ 100 mls/hr Q24H IVPB Last administered on 09/04/16 10:00; Admin Dose 100 MLS/HR; Start 08/26/16 at 09:00 Insulin Glargine (Lantus) 10 unit QPM SC Last administered on 09/03/16 20:54; Admin Dose 10 UNIT; Start 08/27/16 at 21:00 IV Flush 10 ml 10 ml PRN PRN IV IV PROTOCOL; Start 08/28/16 at 13:30 Linezolid 300 ml @ 300 mls/hr Q12 IVPB Last administered on 09/04/16 10:00; Admin Dose 300 MLS/HR; Start 08/29/16 at 21:00 Levofloxacin/ Dextrose (Levaquin 500mg/ D5W 100 ml (Pmx)) 100 ml @ 100 mls/hr Q48H IVPB Last administered on 09/02/16 14:11; Admin Dose 100 MLS/HR; Start at 14:30 Collagenase (Santyl) 1 applic DAILY TOP Last administered on 09/04/16 10:02; Admin Dose 1 APPLIC; Start 08/30/16 at 09:00 Insulin Aspart NOVOLOG *MILD* ALGORI... Q6 SC Last administered on 09/04/16 12 :10; Admin Dose 1 UNIT; Start 08/31/16 at 00:00 Total Parenteral Nutrition 1,000 ml @ 80 mls/hr [id number] IV Last administered on 09/03/16 16:26; Admin Dose 80 MLS/HR; Start 09/01/16 at 09:30 Potassium Chloride/Dextrose (KCl/D5W) 1,015 ml @ 100 mls/hr Q10H9M IV Last administered on 09/04/16 05:12; Admin Dose 100 MLS/HR; Start 09/01/16 at 17:00 Permethrin (Elimite 5% Cr) 1 applic Q7D TOP Last administered on 09/02/16 21: 31; Admin Dose 1 APPLIC; Start 09/02/16 at 17:00; Stop 09/09/16 at 17:01 Assessment/Plan Chief Complaint/Hosp Course IMPRESSION AND PLAN: 1. Vent dependent respiratory failure. 2. Chronic encephalopathy. 3. Significant G-tube bleeding leak. 4. Persistent pseudomonas and providencia urinary tract infection. 5. Chronic encephalopathy. 6. Polymicrobial sepsis from wounds. PLAN: 1. Leaky G-tube site now changed to a percutaneous jejunostomy tube. 2. Continue on supplemental O2 vent support. 3. Resume tube feeding per GI. 4. DVT and GI prophylaxis. Problems: NICK BALLARD MD, [facility] Sep 04, 2016 14:41
--- NOTE | 2016-09-04 14:42 | CONS ---
Date/Time of Note Date/Time of Note DATE: 09/04/16 TIME: 14:41 Consult Date/Type/Reason Admit Date/Time Aug 23, 2016 at 22:10 Type of Consultation: id Subjective no acute changes, looks comfortable, no fevers Objective Vital Signs Date Time Temp Pulse Resp B/P Pulse Ox O2 Delivery O2 Flow Rate FiO2 09/04/16 13:34 85 16 99 30 09/04/16 08:04 97.6 102/66 09/03/16 12:54 Trach Collar Intake and Output 09/03/16 09/03/16 09/04/16 15:00 23:00 07:00 Intake Total 0 ml 1515 ml Output Total 2000 ml 1000 ml Balance -2000 ml 515 ml Results/Medications Result Diagram: 09/03/16 0625 09/04/16 0620 Results 24 hrs Laboratory Tests Test 09/03/16 17:38 09/03/16 20:49 09/04/16 05:08 09/04/16 06:20 Bedside Glucose 127 132 118 Anion Gap 15 Blood Urea Nitrogen 43 H Calcium Level 7.9 L Carbon Dioxide Level 20 L Chloride Level 108 Creatinine 1.03 Glucose Level 124 Magnesium Level 2.3 Phosphorus Level 2.6 Potassium Level 4.1 Sodium Level 139 Test 09/04/16 12:01 Bedside Glucose 148 Medications Current Medications Ondansetron HCl (Zofran Inj) 4 mg Q6H PRN IV NAUSEA AND/OR VOMITING; Start 08/23 at 23:00 Morphine Sulfate (morphine) 2 mg Q4H PRN IV SEVERE PAIN LEVEL 7-10 Last administered on 08/24/16 23:58; Admin Dose 2 MG; Start 08/23/16 at 23:00 Acetaminophen (Tylenol Tab) 650 mg Q4H PRN GTB MILD PAIN LEVEL 1-3 Last administered on 08/24/16 16:15; Admin Dose 650 MG; Start 08/23/16 at 23:00 Amiodarone HCl (Cordarone) 200 mg DAILY GTB Last administered on 09/04/16 09: 59; Admin Dose 200 MG; Start 08/24/16 at 09:00 Ascorbic Acid (Vitamin C) 500 mg DAILY GTB Last administered on 09/04/16 09:59 ; Admin Dose 500 MG; Start 08/24/16 at 09:00 Bisacodyl (Dulcolax Supp) 10 mg Q24H PRN [place] PRN; Start 08/23/16 at 23:00 Chlorhexidine Gluconate (Peridex) 15 ml Q12 MM Last administered on 09/04/16 09:59; Admin Dose 15 ML; Start 08/24/16 at 09:00 Cholecalciferol (Vitamin D) 1,000 unit DAILY GTB Last administered on 09:59; Admin Dose 1,000 UNIT; Start 08/24/16 at 09:00 Eye Lubricant (Artificial Tears Oph) 2 drop BID BOTH EYES Last administered on 09/04/16 09:57; Admin Dose 2 DROP; Start 08/24/16 at 09:00 Simethicone (Mylicon) 80 mg Q12 PRN GTB DISTENSION/GAS/BLOATING; Start 08/23/16 at 23:00 Tramadol HCl (Ultram) 50 mg BID GTB Last administered on 09/04/16 10:08; Admin Dose 50 MG; Start 08/24/16 at 09:00 Zinc Sulfate (Zinc Sulfate) 220 mg DAILY GTB Last administered on 09/04/16 09: 59; Admin Dose 220 MG; Start 08/24/16 at 09:00 Lactobacillus Acidoph/Bulgaricus (Floranex) 1 tab DAILY PO Last administered on 09/04/16 09:59; Admin Dose 1 TAB; Start 08/24/16 at 11:00 Multivitamins (Thera-Plus) 5 ml DAILY GTB Last administered on 08/31/16 11:03 ; Admin Dose 5 ML; Start 08/24/16 at 09:00; Status Future Hold Lansoprazole (Prevacid) 30 mg BID@ GTB Last administered on 09/04/16 05: 12; Admin Dose 30 MG; Start 08/24/16 at 06:00 Ferrous Sulfate (Feosol Liquid Cup) 330 mg BID GTB Last administered on 09:59; Admin Dose 330 MG; Start 08/24/16 at 09:00 Docusate Sodium (Colace Liquid Cup) 100 mg BID GTB Last administered on 09:57; Admin Dose 100 MG; Start 08/24/16 at 09:00 Collagenase (Santyl) 1 applic DAILY TOP Last administered on 09/04/16 10:01; Admin Dose 1 APPLIC; Start 08/24/16 at 03:30 Miscellaneous Information 1 ea NOTE XX ; Start 08/24/16 at 22:00 Glucose (Glutose) 15 gm Q15M PRN PO DECREASED GLUCOSE; Start 08/24/16 at 22:00 Glucose (Glutose) 22.5 gm Q15M PRN PO DECREASED GLUCOSE; Start 08/24/16 at 22:00 Dextrose (D50w Syringe) 25 ml Q15M PRN IV DECREASED GLUCOSE; Start 08/24/16 at 22:00 Dextrose (D50w Syringe) 50 ml Q15M PRN IV DECREASED GLUCOSE; Start 08/24/16 at 22:00 Glucagon (Glucagen) 1 mg Q15M PRN IM DECREASED GLUCOSE; Start 08/24/16 at 22:00 Glucose 15 gm 15 gm Q15M PRN BUCCAL DECREASED GLUCOSE; Start 08/24/16 at 22:00 Cefepime HCl (Maxipime 2gm/50 ml (Pmx)) 50 ml @ 100 mls/hr Q24H IVPB Last administered on 09/04/16 10:00; Admin Dose 100 MLS/HR; Start 08/26/16 at 09:00 Insulin Glargine (Lantus) 10 unit QPM SC Last administered on 09/03/16 20:54; Admin Dose 10 UNIT; Start 08/27/16 at 21:00 IV Flush 10 ml 10 ml PRN PRN IV IV PROTOCOL; Start 08/28/16 at 13:30 Linezolid 300 ml @ 300 mls/hr Q12 IVPB Last administered on 09/04/16 10:00; Admin Dose 300 MLS/HR; Start 08/29/16 at 21:00 Levofloxacin/ Dextrose (Levaquin 500mg/ D5W 100 ml (Pmx)) 100 ml @ 100 mls/hr Q48H IVPB Last administered on 09/02/16 14:11; Admin Dose 100 MLS/HR; Start at 14:30 Collagenase (Santyl) 1 applic DAILY TOP Last administered on 09/04/16 10:02; Admin Dose 1 APPLIC; Start 08/30/16 at 09:00 Insulin Aspart NOVOLOG *MILD* ALGORI... Q6 SC Last administered on 09/04/16 12 :10; Admin Dose 1 UNIT; Start 08/31/16 at 00:00 Total Parenteral Nutrition 1,000 ml @ 80 mls/hr [id number] IV Last administered on 09/03/16 16:26; Admin Dose 80 MLS/HR; Start 09/01/16 at 09:30 Potassium Chloride/Dextrose (KCl/D5W) 1,015 ml @ 100 mls/hr Q10H9M IV Last administered on 09/04/16 05:12; Admin Dose 100 MLS/HR; Start 09/01/16 at 17:00 Permethrin (Elimite 5% Cr) 1 applic Q7D TOP Last administered on 09/02/16 21: 31; Admin Dose 1 APPLIC; Start 09/02/16 at 17:00; Stop 09/09/16 at 17:01 Assessment/Plan Chief Complaint/Hosp Course ANTIMICROBIALS: 1. Zyvox. 2. Cefepime. 3. Levaquin PHYSICAL EXAMINATION: GENERAL: Chronically ill-appearing, elderly man who is in no distress. HEENT: Head atraumatic, normocephalic. Sclerae anicteric. Buccal mucosa dry. NECK: Supple. Tracheostomy present. CHEST: Rise symmetrical. Breath sounds diminished to bases. HEART: S1, S2. ABDOMEN: Soft. Bowel tones present. EXTREMITIES: With multiple decubitus. SKIN: No jaundice, no cyanosis. The patient has unstageable sacral wound. ASSESSMENT: 1. S/p sepsis with shock. 3. Methicillin-resistant Staphylococcus aureus bacteremia, likely secondary to #3. 4. Unstageable sacral wound with culture growing methicillin-resistant Staphylococcus aureus, vancomycin-resistant enterococcus Klebsiella pneumoniae and Proteus mirabilis. 5. Polymicrobial urinary tract infection. 6. Healthcare-associated pneumonia. 7. Chronic encephalopathy. 8. Transaminitis. 9. Acute renal failure. 10. Rash==> s/p empiric Elimite PLAN: The patient remains stable, s/p PEG, repeat bld cx 08/27 negative, continue present care, complete abx for 6 more days DW RN Problems: CHRISS RIVAS NP Sep 04, 2016 14:42
[2016-09-04] MEDS: LEVOFLOXACIN 500MG/D5W (PMX) 100 ML IVPB SCH (17:53)
--- NOTE | 2016-09-04 19:29 | CONS ---
Date/Time of Note Date/Time of Note DATE: 09/04/16 TIME: 19:27 Assessment/Plan Assessment/Plan Chief Complaint/Hosp Course 1. Acute hypernatremia free water deficit BETTER 2. Acute kidney injury on chronic kidney disease secondary to previous ischemic acute tubular necrosis from severe prerenal azotemia.BETTER 3. Severe prerenal azotemia 4. Sepsis secondary to urinary tract infection. 5. History of recent admission. 6. 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 7. Chronic respiratory failure, status post tracheostomy and status post PEG tube placement. plan RENAL STABLE Problems: Consultation Date/Type/Reason Admit Date/Time Aug 23, 2016 at 22:10 Type of Consultation: RENAL 24 HR Interval Summary Subjective hx not possible: pt non-verbal Exam/Review of Systems Vital Signs Vitals Vital Signs Date Time Temp Pulse Resp B/P Pulse Ox O2 Delivery O2 Flow Rate FiO2 09/04/16 17:32 82 24 99 30 09/04/16 16:13 98.6 118/67 09/03/16 12:54 Trach Collar Intake and Output 09/03/16 09/03/16 09/04/16 15:00 23:00 07:00 Intake Total 0 ml 1515 ml Output Total 2000 ml 1000 ml Balance -2000 ml 515 ml Exam Respiratory: clear to auscultation Cardiovascular: regular rate and rhythm Gastrointestinal: bowel sounds (+), soft Results Result Diagram: 09/03/16 0625 09/04/16 0620 Results 24 hrs Laboratory Tests Test 09/03/16 20:49 09/04/16 05:08 09/04/16 06:20 09/04/16 12:01 Bedside Glucose 132 118 148 Anion Gap 15 Blood Urea Nitrogen 43 H Calcium Level 7.9 L Carbon Dioxide Level 20 L Chloride Level 108 Creatinine 1.03 Glucose Level 124 Magnesium Level 2.3 Phosphorus Level 2.6 Potassium Level 4.1 Sodium Level 139 Test 09/04/16 17:44 Bedside Glucose 123 Medications Medications Current Medications Ondansetron HCl (Zofran Inj) 4 mg Q6H PRN IV NAUSEA AND/OR VOMITING; Start 08/23 at 23:00 Morphine Sulfate (morphine) 2 mg Q4H PRN IV SEVERE PAIN LEVEL 7-10 Last administered on 08/24/16t 23:58; Admin Dose 2 MG; Start 08/23/16 at 23:00 Acetaminophen (Tylenol Tab) 650 mg Q4H PRN GTB MILD PAIN LEVEL 1-3 Last administered on 08/24/16 16:15; Admin Dose 650 MG; Start 08/23/16 at 23:00 Amiodarone HCl (Cordarone) 200 mg DAILY GTB Last administered on 09/04/16 09: 59; Admin Dose 200 MG; Start 08/24/16 at 09:00 Ascorbic Acid (Vitamin C) 500 mg DAILY GTB Last administered on 09/04/16 09:59 ; Admin Dose 500 MG; Start 08/24/16 at 09:00 Bisacodyl (Dulcolax Supp) 10 mg Q24H PRN [place] PRN; Start 08/23/16 at 23:00 Chlorhexidine Gluconate (Peridex) 15 ml Q12 MM Last administered on 09/04/16 09:59; Admin Dose 15 ML; Start 08/24/16 at 09:00 Cholecalciferol (Vitamin D) 1,000 unit DAILY GTB Last administered on 09:59; Admin Dose 1,000 UNIT; Start 08/24/16 at 09:00 Eye Lubricant (Artificial Tears Oph) 2 drop BID BOTH EYES Last administered on 09/04/16 09:57; Admin Dose 2 DROP; Start 08/24/16 at 09:00 Simethicone (Mylicon) 80 mg Q12 PRN GTB DISTENSION/GAS/BLOATING; Start 08/23/16 at 23:00 Tramadol HCl (Ultram) 50 mg BID GTB Last administered on 09/04/16 10:08; Admin Dose 50 MG; Start 08/24/16 at 09:00 Zinc Sulfate (Zinc Sulfate) 220 mg DAILY GTB Last administered on 09/04/16 09: 59; Admin Dose 220 MG; Start 08/24/16 at 09:00 Lactobacillus Acidoph/Bulgaricus (Floranex) 1 tab DAILY PO Last administered on 09/04/16 09:59; Admin Dose 1 TAB; Start 08/24/16 at 11:00 Multivitamins (Thera-Plus) 5 ml DAILY GTB Last administered on 08/31/16 11:03 ; Admin Dose 5 ML; Start 08/24/16 at 09:00; Status Future Hold Lansoprazole (Prevacid) 30 mg BID@,18 GTB Last administered on 09/04/16 17: 53; Admin Dose 30 MG; Start 08/24/16 at 06:00 Ferrous Sulfate (Feosol Liquid Cup) 330 mg BID GTB Last administered on 09:59; Admin Dose 330 MG; Start 08/24/16 at 09:00 Docusate Sodium (Colace Liquid Cup) 100 mg BID GTB Last administered on 09:57; Admin Dose 100 MG; Start 08/24/16 at 09:00 Collagenase (Santyl) 1 applic DAILY TOP Last administered on 09/04/16 10:01; Admin Dose 1 APPLIC; Start 08/24/16 at 03:30 Miscellaneous Information 1 ea NOTE XX ; Start 08/24/16 at 22:00 Glucose (Glutose) 15 gm Q15M PRN PO DECREASED GLUCOSE; Start 08/24/16 at 22:00 Glucose (Glutose) 22.5 gm Q15M PRN PO DECREASED GLUCOSE; Start 08/24/16 at 22:00 Dextrose (D50w Syringe) 25 ml Q15M PRN IV DECREASED GLUCOSE; Start 08/24/16 at 22:00 Dextrose (D50w Syringe) 50 ml Q15M PRN IV DECREASED GLUCOSE; Start 08/24/16 at 22:00 Glucagon (Glucagen) 1 mg Q15M PRN IM DECREASED GLUCOSE; Start 08/24/16 at 22:00 Glucose 15 gm 15 gm Q15M PRN BUCCAL DECREASED GLUCOSE; Start 08/24/16 at 22:00 Cefepime HCl (Maxipime 2gm/50 ml (Pmx)) 50 ml @ 100 mls/hr Q24H IVPB Last administered on 09/04/16 10:00; Admin Dose 100 MLS/HR; Start 08/26/16 at 09:00 Insulin Glargine (Lantus) 10 unit QPM SC Last administered on 09/03/16 20:54; Admin Dose 10 UNIT; Start 08/27/16 at 21:00 IV Flush 10 ml 10 ml PRN PRN IV IV PROTOCOL; Start 08/28/16 at 13:30 Linezolid 300 ml @ 300 mls/hr Q12 IVPB Last administered on 09/04/16 10:00; Admin Dose 300 MLS/HR; Start 08/29/16 at 21:00 Levofloxacin/ Dextrose (Levaquin 500mg/ D5W 100 ml (Pmx)) 100 ml @ 100 mls/hr Q48H IVPB Last administered on 09/04/16 17:53; Admin Dose 100 MLS/HR; Start at 14:30 Collagenase (Santyl) 1 applic DAILY TOP Last administered on 09/04/16 10:02; Admin Dose 1 APPLIC; Start 08/30/16 at 09:00 Insulin Aspart NOVOLOG *MILD* ALGORI... Q6 SC Last administered on 09/04/16 12 :10; Admin Dose 1 UNIT; Start 08/31/16 at 00:00 Total Parenteral Nutrition 1,000 ml @ 80 mls/hr [id number] IV Last administered on 09/03/16 16:26; Admin Dose 80 MLS/HR; Start 09/01/16 at 09:30 Potassium Chloride/Dextrose (KCl/D5W) 1,015 ml @ 100 mls/hr Q10H9M IV Last administered on 09/04/16 05:12; Admin Dose 100 MLS/HR; Start 09/01/16 at 17:00 Permethrin (Elimite 5% Cr) 1 applic Q7D TOP Last administered on 09/02/16 21: 31; Admin Dose 1 APPLIC; Start 09/02/16 at 17:00; Stop 09/09/16 at 17:01 PATRICIO ELIZALDE MD Sep 04, 2016 19:28
== END 2016-09-04 19:20 | DRG 698 ==
LOC: E/R 20:28 → ICU 22:10 → TEL 08-29 17:42
PROVIDERS: ADMIT Internal Medicine; ATTEND Internal Medicine
PROC: 5A1955Z Respiratory Ventilation, Greater than 96 Consecutive Hours (ICD-10-PCS; principal; 2016-08-23)
PROC: 02HV33Z Insertion of Infusion Device into Superior Vena Cava, Percutaneous Approach (ICD-10-PCS; 2016-08-25)
PROC: 30233N1 Transfusion of Nonautologous Red Blood Cells into Peripheral Vein, Percutaneous Approach (ICD-10-PCS; 2016-08-25)
PROC: 30233N1 Transfusion of Nonautologous Red Blood Cells into Peripheral Vein, Percutaneous Approach (ICD-10-PCS; 2016-08-27)
PROC: 30233N1 Transfusion of Nonautologous Red Blood Cells into Peripheral Vein, Percutaneous Approach (ICD-10-PCS; 2016-08-28)
PROC: 0DH63UZ Insertion of Feeding Device into Stomach, Percutaneous Approach (ICD-10-PCS; 2016-09-03)
PROC: 0W3P8ZZ Control Bleeding in Gastrointestinal Tract, Via Natural or Artificial Opening Endoscopic (ICD-10-PCS; 2016-09-03)
DX: T83.518A Infection and inflammatory reaction due to other urinary catheter, initial encounter (principal); A41.9 Sepsis, unspecified organism; R65.21 Severe sepsis with septic shock; G93.40 Encephalopathy, unspecified; N17.9 Acute kidney failure, unspecified; L89.154 Pressure ulcer of sacral region, stage 4; Z99.11 Dependence on respirator [ventilator] status; L89.893 Pressure ulcer of other site, stage 3; K25.4 Chronic or unspecified gastric ulcer with hemorrhage; J95.851 Ventilator associated pneumonia; E87.0 Hyperosmolality and hypernatremia; I24.8 Other forms of acute ischemic heart disease; N39.0 Urinary tract infection, site not specified; K94.22 Gastrostomy infection; J96.10 Chronic respiratory failure, unspecified whether with hypoxia or hypercapnia; R13.10 Dysphagia, unspecified; E11.21 Type 2 diabetes mellitus with diabetic nephropathy; L89.022 Pressure ulcer of left elbow, stage 2; L89.012 Pressure ulcer of right elbow, stage 2; N18.3 Chronic kidney disease, stage 3 (moderate); E11.22 Type 2 diabetes mellitus with diabetic chronic kidney disease; I48.0 Paroxysmal atrial fibrillation; E87.5 Hyperkalemia; B96.5 Pseudomonas (aeruginosa) (mallei) (pseudomallei) as the cause of diseases classified elsewhere; E87.6 Hypokalemia; E86.0 Dehydration; I12.9 Hypertensive chronic kidney disease with stage 1 through stage 4 chronic kidney disease, or unspecified chronic kidney disease; Y84.8 Other medical procedures as the cause of abnormal reaction of the patient, or of later complication, without mention of misadventure at the time of the procedure; Y92.129 Unspecified place in nursing home as the place of occurrence of the external cause; Z79.4 Long term (current) use of insulin
CPT/HCPCS: 36430; 36569; 36589; 36600; 71010; 76937; 80048; 80053; 80202; 81001; 81003; 82270; 82803; 82962; 83036; 83605; 83735; 83930; 83935; 84100; 84134; 84300; 84484; 85025; 85610; 85730; 86644; 86850; 86900; 86901; 86920; 87040; 87070; 87081; 87086; 87400; 89220; 93005; 93306; 94002; 94003; J1815; J1956; J2060; J2270; J2997; J3370; J3475; J3480; J7030; J7040; J7050; J7070; J7120; P9016

== ENCOUNTER 2016-09-25 14:34 | Inpatient (IN) | payer OTHER ==
[~2016-09-25] VITALS: Ht 182.9 cm; Wt 74.9 kg
[~2016-09-25 14:34] MED LIST changes: -ACET-2047 GTB; +ACET325T33 GTB; +ACID1CAP GTB; -BISA10SU58 PR; -CHLO118L3 TOP; +CHLO473M7 MM; +CHOL100062 GTB; +DEXT15DR2 BOTH EYES; +DOCU-159 GTB; +DULR PR; -FERR220S2 G-TUBE; +FERROUS SULFATE GTB; -INSU100V23 SC; -LACTINEX GTB; +LANT3I SC; -METO5TAB58 GTB; +MULT-105 GTB; -MULT-876 GTB; -POLY15DR42 BOTH EYES; -RTATR NEB; -SIME80TA6 GTB; +ZINC220T GTB
[2016-09-25] MEDS ORDERED: SOD CHLORIDE 0.9% 500 ML IV STA (15:27)
[2016-09-25 16:13] LABS: HEMOGLOBIN 7.2 g/dl (14.0-18.0); MEAN CORPUSCULAR HEMOGLOBIN 29.6 pg (29.0-33.0); MEAN CORPUSCULAR HGB CONC 32.6 g/dl (32.0-37.0); MEAN CORPUSCULAR VOLUME 90.8 fl (82.0-101.0); MEAN PLATELET VOLUME 9.8 fl (7.4-10.4); PLATELET COUNT 442 10^3/UL (140-440); RED BLOOD COUNT 2.42 10^6/ul (4.70-6.10); RED CELL DISTRIBUTION WIDTH 17.6 % (11.5-14.5); UNCORRECTED WBC 7.8 10^3/ul (4.8-10.8); WHITE BLOOD COUNT 7.8 10^3/ul (4.8-10.8)
--- NOTE | 2016-09-25 16:14 | RADRPT ---
PROCEDURE: XR Chest. CLINICAL INDICATION: chest pain TECHNIQUE: Single frontal view of the chest was obtained COMPARISON: 08/29/2016 FINDINGS: The heart is normal in size. Thoracic aorta is calcified. There is a tracheostomy tube in place. There is a left-sided PICC line with its tip overlying the cavoatrial junction. There are small bilateral pleural effusions, right greater than left. There are mild bibasilar atel ectatic changes. RPTAT: AA IMPRESSION: Small bilateral pleural effusions with mild bibasilar atelectatic changes, right greater than left. Calcified aorta consistent with atherosclerotic disease. .Meek Hobson MD, MD Date Time Electronically viewed and signed by .Meek Hobson MD, on 09/25/2016 16:14 .S/
[2016-09-25 16:21] LABS: ALBUMIN 2.8 g/dl (3.3-4.9)
[2016-09-25 16:22] LABS: POTASSIUM 4.4 mmol/L (3.5-5.1)
[2016-09-25 16:23] LABS: CONDITION 1; INR 1.17; LH ANALYZER COMMENTS 1; PT RATIO 1.2; SUSPECT 1
[2016-09-25 16:24] LABS: ALBUMIN/GLOBULIN RATIO 0.71; CREATININE 0.94 mg/dl (0.61-1.24); PARTIAL THROMBOPLASTIN TIME 31.4 Sec (25.0-35.0); TOTAL PROTEIN 6.7 g/dl (6.1-8.1)
[2016-09-25 16:25] LABS: CALCIUM 8.8 mg/dl (8.4-10.2)
[2016-09-25 16:38] LABS: TROPONIN-I 0.016 ng/ml (0.00-0.12)
[2016-09-25] MEDS ORDERED: CRAN3875 GTB (16:51)
[2016-09-25] MEDS ORDERED: TYL500 GTB (16:52)
[2016-09-25] MEDS ORDERED: CALC-84 GTB (16:54)
[2016-09-25] MEDS ORDERED: FERR220S13 GTB (16:56)
[2016-09-25] MEDS ORDERED: FLEETPED PR (16:57)
[2016-09-25] MEDS ORDERED: LANT3I SC (16:57)
[2016-09-25] MEDS ORDERED: MAGN400O4 GTB (16:58)
--- NOTE | 2016-09-25 16:58 | ERA ---
ER Documentation Chief Complaint Date/Time DATE: 09/25/16 TIME: 16:55 Chief Complaint HPI 70-year-old man brought in by EMS from care home for recent anemia. Yesterday's hemoglobin was checked and it was 6.3 necessitating transfusion. Patient does have a history of gastritis and peptic ulcer disease, no recent history of blood per rectum. Patient is in a chronic vegetative state requiring mechanical ventilation via tracheostomy tube and uses a gastrostomy feeding tube. Patient has had no recent fevers or chills, no vomiting no diarrhea, no seizure activity. HPI supplemented by reviewing past medical history, care home records, speaking to EMS, and nursing staff. ROS All systems reviewed and are negative except as per history of present illness. Medications Home Meds Reported Medications Lansoprazole* (Lansoprazole*) 30 Mg Capsule.dr, 30 MG GTB BID, CAP 09/25/16 Magnesium Hydroxide* (Milk Of Magnesia*) 400 Mg/5 Ml Oral.susp, 30 ML GTB DAILY Y for PRN, ML 09/25/16 Insulin Glargine* (Lantus*) 100 Unit/Ml Soln, 15 UNIT SC DAILY, #1 VIAL 09/25/16 Sod Phosphate/Sod Biphosphate* (Fleet* Enema Pediatric) 66.6 Ml Soln, 66.6 ML ME Q2DAYS Y for CONSTIPATION, ENEMA 09/25/16 Ferrous Sulfate* (Ferrous Sulfate*) 220 Mg/5 Ml Solution, 220 MG GTB DAILY, ML 09/25/16 Calcium Carbonate-Vitamin D3 (Calcium 500 + D Tablet) 1 Each Tablet, 1 TAB GTB DAILY, TAB 09/25/16 Acetaminophen* (Tylenol*) 500 Mg Tab, 1000 MG GTB Q4H Y for PAIN LEVEL 4-6/10, TAB 09/25/16 Cran/Vitc/Mannose/Inulin/Brom (Uti-Stat Liquid) 3,875 Mg/30 Ml Liquid, 30 ML GTB BID 09/25/16 Zinc Sulfate* (Zinc Sulfate*) 220 Mg Tablet, 220 MG GTB DAILY, TAB 08/23/16 Cholecalciferol* (Vitamin D3*) 1,000 Unit Tablet, 1000 UNIT GTB DAILY, TAB 08/23/16 Ascorbic Acid* (Vitamin C* Liq) 500 Mg/5 Ml Syrup, 500 MG GTB DAILY, ML 08/23/16 Acetaminophen* (Tylenol*) 325 Mg Tablet, 650 MG GTB Q4H Y for MILD PAIN LEVEL 1- 3, TAB FOR FEVER AND TRACH TUBE CHANGE 08/23/16 Tramadol Hcl* (Ultram*) 50 Mg Tablet, 50 MG GTB BID, TAB 08/23/16 Docusate Sodium* (Docusate Sodium*) 100 Mg Capsule, 100 MG GTB BID, #60 CAP 08/23/16 Chlorhexidine Gluconate (Paroex) 473 Ml Mouthwash, 473 ML MM Q12, BOTTLE 08/23/16 Dextran/Hypromellose/Glycerin (Artificial Tears Drops) 15 Ml Drops, 2 DROP BOTH EYES BID, EA 08/23/16 Amiodarone Hcl* (Amiodarone Hcl*) 200 Mg Tablet, 200 MG GTB DAILY, #30 TAB HOLD IF AP BELOW 60 08/23/16 Albuterol Sulfate* (Albuterol Sulfate* Neb) 0.083%-3 Ml Neb, 2.5 MG NEB Q3H Y for WHEEZING AND SOB, #30 VIAL 08/23/16 Acidophilus/Pectin, [place] (ACIDOPHILUS PROBIOTIC CAPSULE) 1 Each Capsule, 1 EACH GTB DAILY, CAP 08/23/16 Discontinued Reported Medications [Ferrous Sulfate] No Conflict Check, 7.5 ML GTB BID 08/23/16 Omeprazole* (Omeprazole*) 40 Mg Capsule.dr, 40 MG GTB BID, #30 CAP 08/23/16 Multivitamin with Minerals (Multivitamins with Minerals) 1 Each Tablet, 1 EACH GTB DAILY, TAB 08/23/16 Bisacodyl* (Bisacodyl*) 10 Mg Supp, 10 MG ME Q24H Y for PRN, SUPP 08/23/16 Discontinued Scripts Insulin Glargine* (Lantus*) 100 Unit/Ml Soln, 10 UNIT SC QPM for 60 Days Prov:IAM GÓMEZ MD 08/30/16 Allergies Allergies: Coded Allergies: No Known Allergy (Unverified , 09/25/16) PMhx/Soc Chronic vegetative state with a tracheostomy and mechanical ventilator dependence, gastrostomy feeding tube, diffuse muscular wasting and extremity contractures, emaciated, history of anemia acute kidney injury, paroxysmal atrial fibrillation, diabetes mellitus, severe decubitus ulcers, peptic ulcer disease History of Surgery: Yes (trach/peg) Hx Neurological Disorder: Yes Hx Respiratory Disorders: Yes (TRACH TO VENT) Hx Cardiac Disorders: Yes (A. fib) Hx Psychiatric Problems: No Hx Miscellaneous Medical Probl: Yes (ALOC 09/24/16) Hx Substance Use: No Smoking Status: Unknown if ever smoked FmHx Family History: No diabetes Physical Exam Vitals Vital Signs Date Time Temp Pulse Resp B/P Pulse Ox O2 Delivery O2 Flow Rate FiO2 09/25/16 15:36 100.2 91 20 108/67 100 Physical Exam GENERAL: Elderly, chronically debilitated emaciated man unresponsive, tracheostomy tube in place HEENT: Pale conjunctival, dry mucous membranes, tracheostomy in place connected to mechanical ventilator NEURO: Unresponsive, GCS equals 3, diffuse muscular wasting, pupils equal round reactive to light CARDIAC: Regular rate rhythm, no murmurs LUNGS: Clear lungs, no crackles or wheezing ABDOMEN: Soft nontender, no rigidity, normal active bowel sounds SKIN: Warm and dry to touch, large sacral decubitus ulceration, superficial skin abrasions EXTREMITIES: Distal pulses equal bilateral, calves symmetrical, diffuse muscular wasting PSYCH: Unable to assess Result Diagram: 09/25/16 1600 09/25/16 1600 Results 24 hrs Laboratory Tests Test 09/25/16 16:00 Activated Partial Thromboplast Time 31.4Sec Alanine Aminotransferase (ALT/SGPT) 23IU/L Albumin 2.8g/dl Albumin/Globulin Ratio 0.71 Alkaline Phosphatase 93IU/L Anion Gap 16 Aspartate Amino Transf (AST/SGOT) 21IU/L Blood Morphology Comment Blood Urea Nitrogen 83mg/dl Calcium Level 8.8mg/dl Carbon Dioxide Level 30mmol/L Chloride Level 113mmol/L Creatinine 0.94mg/dl Direct Bilirubin 0.00mg/dl Globulin 3.90g/dl Glucose Level 124mg/dl Hematocrit 22.0% Hemoglobin 7.2g/dl INR International Normalized Ratio 1.17 Indirect Bilirubin 0.0mg/dl Lipase 30U/L Mean Corpuscular Hemoglobin 29.6pg Mean Corpuscular Hemoglobin Concent 32.6g/dl Mean Corpuscular Volume 90.8fl Mean Platelet Volume 9.8fl Platelet Count 78393^3/UL Potassium Level 4.4mmol/L Prothrombin Time 15.0Sec Prothrombin Time Ratio 1.2 Red Blood Count 2.4210^6/ul Red Cell Distribution Width 17.6% Sodium Level 155mmol/L Total Bilirubin 0.0mg/dl Total Protein 6.7g/dl Troponin I 0.016ng/ml White Blood Count 7.810^3/ul Current Medications Medications (Trade) Dose Ordered Sig/Cici Route PRN Reason Start Time Stop Time Status Last Admin Dose Admin Sodium Chloride 500 ml @ 500 mls/hr Q1H STAT IV 09/25/16 15:27 09/25/16 16:26 DC Sodium Chloride (NS) 1,000 ml @ 1,000 mls/hr Q1H ONCE IV 09/25/16 17:00 09/25/16 17:59 Procedures/MDM IV line was established patient was placed on copy center specialist rhythm strip revealed a sinus rhythm at about 90 bpm with upright P and T waves. Patient was afebrile rectal temperature was 100.2F. EKG performed, read by me revealed a sinus rhythm with premature atrial contractions at 94 bpm, normal axis, narrow QRS complex, no concerning ST elevations or depressions noted. One view chest x-ray performed, read by me there is a tracheostomy in place and a PICC line in the left subclavian in proper position, no acute infiltrates, no pneumothorax. CBC reveals anemia with a hematocrit of 22, electrolytes revealed hypernatremia and dehydration with a BUN/creatinine of 83/0.9, liver function tests were normal, troponin was negative. Patient will be transfused 2 units PRBCs IV over 4 hours for anemia Critical Care: Time: 37 minutes, this was time separate from other procedures. Treatments/Evaluations: Close monitoring and treatment of unstable vital signs, cardiorespiratory, and neurologic status, while maintaining tight balance of fluid, respiratory, and cardiac interventions. Departure Diagnosis: Primary Impression: Dehydration Additional Impressions: Severe anemia Respiratory failure Qualified Code: J96.11 - Chronic respiratory failure with hypoxia and hypercapnia Encephalopathy chronic Gastritis and gastroduodenitis with hemorrhage Condition: Serious LIBRADO CHIN MD Sep 25, 2016 16:58
[2016-09-25] MEDS ORDERED: LANS30CA GTB (16:59)
[2016-09-25] MEDS ORDERED: SOD CHLORIDE 0.9% 1,000 ML IV ONE (17:00)
[2016-09-25 17:37] LABS: BASOPHILS % 0.1 % (0.0-2.0); LYMPHOCYTES # 0.6 10^3/ul (0.8-2.9); LYMPHOCYTES % 7.6 % (15.0-51.0); MONOCYTE # 0.7 10^3/ul (0.3-0.9); MONOCYTES % 9.1 % (0.0-11.0); NEUTROPHIL # 5.8 10^3/ul (1.6-7.5); NEUTROPHILS % 74.7 % (39.0-77.0)
[2016-09-25] MEDS ORDERED: MAGNESIUM HYDROXIDE 30ML CUP GTB PRN (18:00)
[2016-09-25] MEDS ORDERED: ALBUTEROL 0.083% (NEB) 2.5 MG/3 ML AMP NEB PRN (18:00)
[2016-09-25] MEDS ORDERED: ACETAMINOPHEN 325 MG TAB GTB PRN (18:00)
[2016-09-25] MEDS ORDERED: NACL 0.9% 3 ML SYG IV SCH (18:00)
[2016-09-25] MEDS ORDERED: ONDANSETRON 4 MG INJ IV PRN (18:00)
[2016-09-25] MEDS ORDERED: ACETAMINOPHEN 325 MG TAB PO PRN (18:00)
[2016-09-25] MEDS ORDERED: LORAZEPAM 2 MG INJ IV PRN (18:00)
[2016-09-25] MEDS ORDERED: ACETAMINOPHEN 650 MG SUPP PR PRN (18:00)
[2016-09-25] MEDS ORDERED: GLUCOSE GEL 15 GRAM TUBE BUCCAL PRN (18:30)
[2016-09-25] MEDS ORDERED: GLUCOSE GEL 15 GRAM TUBE PO PRN ×2 (18:30)
[2016-09-25] MEDS ORDERED: GLUCAGON 1 MG INJ IM PRN (18:30)
[2016-09-25] MEDS: AMIODARONE 200 MG TAB GTB SCH (18:30)
[2016-09-25] MEDS ORDERED: DEXTROSE 50% 50 ML SYRINGE IV PRN ×2 (18:30)
--- NOTE | 2016-09-25 18:48 | HP ---
DATE OF ADMISSION: 09/25/2016 ADDENDUM MEDICAL AND SURGICAL HISTORY: 1. History of sepsis secondary to urinary tract infection. 2. History of line sepsis. 3. History of dehydration. 4. Renal insufficiency. 5. Severe hypernatremia. 6. Transaminitis. 7. Diabetes mellitus. 8. Unstageable sacral decubitus. 9. Evidence of lower extremity decubitus. 10. Anemia. 11. History of blood transfusion. 12. Percutaneous endoscopic gastrostomy tube dysfunction. 13. Status post PEG tube. 14. Ventilatory-dependent respiratory failure. 15. History of hospital-acquired pneumonia. 16. Chronic encephalopathy. 17. Methicillin-resistant Staphylococcus aureus bacteremia. MEDICATIONS: As per EMR. SOCIAL HISTORY: The patient resides at alf facility. FAMILY HISTORY: Noncontributory. REVIEW OF SYSTEMS: Not obtainable. PHYSICAL EXAMINATION: VITAL SIGNS: Temperature 100.2, pulse 91, respiration 20, blood pressure 108/67, oxygen 100% on freddie t. GENERAL APPEARANCE: The patient is lying in the bed, does not respond to pain or verbal stimuli. EYES AND ENT: Conjunctivae and lids are normal. Pupils are normal. Extraocular motor is not asses sable. NECK: Supple. There is a trach in place. CARDIOVASCULAR: Normal S1, S2. Positive bilateral lower extremity edema. No murmur. LUNGS: Clear to auscultation bilaterally. GASTROINTESTINAL: PEG tube in place. PEG tube site is dry and clean. SKIN: Unstageable sacral decubitus. There are decubitus ulcers in bilateral lower extremities. NEUROLOGIC: Not obtainable. The patient is awake, although does not respond to pain or verbal stim belkys. LABORATORY WORK AND IMAGING: WBC 7.8, hemoglobin 7.2, hematocrit 22.0, platelets 442. Sodium 155, potassium 4.4, chloride 113, bicarbonate 30, BUN 83, creatinine 0.94, glucose 124. LFTs all within normal limits. ASSESSMENT AND PLAN: 1. Anemia with history of gastric ulcer. The patient has been typed and crossed. We will transfus e 2 units of packed red blood cells. Continue proton pump inhibitor. 2. Hypernatremia. The patient has been placed on free water. At this time, I will start the patie nt on D5W. Follow up electrolytes in a.m. 3. Severe dehydration with BUN of 83. Place the patient on IV fluid. The patient also will obtain 2 units of packed red blood cells. 4. Ventilator-dependent respiratory failure on vent. Pulmonology has been consulted. 5. History of arrhythmia. Continue amiodarone. 6. Diabetes mellitus. Continue Lantus. 7. Unstageable sacral decubitus. Wound care will be consulted. 8. For deep venous thrombosis prophylaxis, we will place him on sequential compression devices. Re frain from using any pharmacology deep vein thrombosis prophylaxis at this time secondary to anemia. 9. Gastrointestinal prophylaxis, on proton pump inhibitor. Dictated By: IAM GÓMEZ MD PN/NTS Conf#: [id number] DID#: [id number]
[2016-09-25] MEDS ORDERED: NON-FORMULARY/PATIENT OWN MED (Cran/Vitc/Mannose/Inulin/Brom (Uti-Stat Liquid) 30 ML) GTB SCH (21:00)
[2016-09-25] MEDS: ARTIFICIAL TEARS 15 ML OPH BOTH EYES SCH (22:34)
[2016-09-25] MEDS: CHLORHEXIDINE GLUCONATE 15 ML UD CUP MM SCH (22:34)
[2016-09-25] MEDS: DOCUSATE SODIUM 100 MG CAP PO SCH (22:35)
[2016-09-25] MEDS: LANSOPRAZOLE 30 MG CAP GTB SCH (22:35)
[2016-09-25] MEDS: traMADol 50 MG TAB GTB SCH (22:36)
[2016-09-25 23:24] VITALS: PULSE 88
[2016-09-25 23:28] VITALS: BP 117/72; RESP 16
[2016-09-25 23:35] VITALS: RESP 16
[2016-09-26] VITALS (24 sets, daily range): BP systolic 109–144; BP diastolic 63–71; PULSE 70–89; RESP 16–20; Ht 182.9 cm; Wt 74.9 kg
[2016-09-26] MEDS: DEXTROSE 5% 1,000 ML IV SCH ×3 (01:41→23:33)
[2016-09-26] MEDS: LANSOPRAZOLE 30 MG CAP GTB SCH ×2 (05:48→18:15)
--- NOTE | 2016-09-26 07:54 | HP ---
DATE OF ADMISSION: 09/25/2016 LEAD PRINTER: None. CHIEF COMPLAINT: Anemia. HISTORY OF PRESENT ILLNESS: This is a 70-year-old gentleman who is known to our service from prior hospitalization with a past medical history of sepsis secondary to urinary tract infection, line sep sis, sacral decubitus, renal insufficiency, hyperkalemia, transaminitis, diabetes mellitus, unstagea ble sacral decubitus, anemia requiring transfusion, percutaneous endoscopic gastrostomy tube dysfunc tion, vent-dependent respiratory failure, chronic encephalopathy, history of methicillin-resistant S taphylococcus aureus bacteremia who was recently discharged from [facility] on to [facility], and the patient had a blood test, CBC evaluation, at that [facility] which was found to show hemoglobin of 6.3 ____ transfusion. That patient does have a history o f gastritis and peptic ulcer disease and has been on PPI. He is in chronic vegetative state, requir ing mechanical ventilation and tracheostomy tube and uses gastrostomy feeding tube. As stated above , patient is in vegetative state and is not able to provide me with any information. Great amount o f information was obtained from the prior admissions and notes and the ER notes. While the patient in the ER, his hemoglobin was found to be 7.3, hematocrit 22.0, sodium of 155. The patient has been typed and screened and will be transfused 2 units of packed red blood cells. PAST MEDICAL AND SURGICAL HISTORY: As above per HPI. MEDICATIONS: 1. Tylenol. 2. Probiotic. 3. Albuterol sulfate. 4. Amiodarone. 5. Vitamin C. 6. Calcium plus vitamin D. 7. Vitamin D3. 8. UTI-Stat liquid. 9. Artificial tears. 10. Colace. 11. Ferrous sulfate. 12. Lantus. 13. Prevacid. 14. Milk of magnesia. DICTATION ENDS HERE. Dictated By: IAM EM/LESLY Conf#: [id number] DID#: [id number]
[2016-09-26] MEDS: CHLORHEXIDINE GLUCONATE 15 ML UD CUP MM SCH ×2 (08:38→20:52)
[2016-09-26] MEDS: FERROUS SULFATE 60 MG/ML 5ML CUP GTB SCH (08:39)
[2016-09-26] MEDS: CHOLECALCIFEROL 1,000 UNIT TAB GTB SCH (08:39)
[2016-09-26] MEDS: AMIODARONE 200 MG TAB GTB SCH (08:39)
[2016-09-26] MEDS: CALCIUM/VITAMIN D (500/200) TAB PO SCH (08:39)
[2016-09-26] MEDS: ASCORBIC ACID 500 MG TAB.CHEW GTB SCH (08:39)
[2016-09-26] MEDS: LACTOBACILLUS CHEW TAB PO SCH (08:40)
[2016-09-26] MEDS: DOCUSATE SODIUM 100 MG CAP PO SCH (08:40)
[2016-09-26] MEDS: ARTIFICIAL TEARS 15 ML OPH BOTH EYES SCH ×3 (08:41→20:53)
[2016-09-26] MEDS: INSULIN GLARGINE [LANtus] 3 ML PEN SC SCH (08:45)
[2016-09-26] MEDS: ZINC SULFATE 220 MG CAP GTB SCH (09:17)
[2016-09-26] MEDS: traMADol 50 MG TAB GTB SCH ×2 (09:17→20:53)
--- NOTE | 2016-09-26 11:31 | CONS ---
Date/Time of Note Date/Time of Note DATE: 09/26/16 TIME: 11:23 Assessment/Plan Assessment/Plan Additional Assessment/Plan Assessment and recommendations; 1. Chronic respiratory failure, ventilator dependent. 2. History of recurrent UTI. 3. History of severe CVA. 4. Diabetes. 5. Anemia. Continue current treatment. Increase free water to correct hypernatremia. Currently getting blood transfusion. Continue current ventilator settings. Consultation Date/Type/Reason Admit Date/Time Sep 25, 2016 at 23:08 Date of Consultation: Sep 26, 2016 Type of Consultation: Pulmonary Reason for Consultation Patient is a 70-year-old male who was admitted yesterday for treatment of anemia. Has a history of chronic respiratory failure ventilator dependent. Pulmonary consultation obtained for ventilator management. History of presenting illness; patient is a 70-year-old white male with a resident of senior care the patient had a hematocrit evaluated yesterday which came back as low the patient was sent over to the hospital for transition of blood. Because of severe dementia patient is unable to give any history whatsoever. History was obtained from medical records. Patient was recently discharged from [facility] to rehab facility and had to be admitted again for recurrent anemia. Per medical records there is no overt bleeding noted. Past medical history; next 1. Chronic respiratory failure, ventilator dependent. 2. History of recurrent UTIs. 3. Diabetes. 4. Severe anoxic encephalopathy. 5. History of sacral decubitus ulcer. 6. History of anemia. 7. History of tracheostomy. 8. History of G-tube placement. Medications; were reviewed. Allergies; are none. Family history; social history; occupational history is not available. And unable to be obtained. Review of systems; unable to be obtained. General examination; elderly male, on mechanical ventilation via tracheostomy, unresponsive, currently in no distress. Social History Smoking Status: Unknown if ever smoked Exam/Review of Systems Vital Signs Vitals Vital Signs Date Time Temp Pulse Resp B/P Pulse Ox O2 Delivery O2 Flow Rate FiO2 09/26/16 08:34 85 09/26/16 07:47 98.6 20 114/71 100 09/26/16 05:26 40 09/25/16 22:41 Mechanical Ventilator Intake and Output 09/25/16 09/25/16 09/26/16 15:00 23:00 07:00 Intake Total 540 ml Output Total 800 ml Balance -260 ml Exam Current ventilator settings are AC of 16, tidal volume 550, PEEP of 5, 40% FiO2. HEENT examination; supple neck, no JVD. Tracheostomy in place with clean insertion site. Patient is edentulous. Pupils are midsize reactive to light. No neck masses, no thyromegaly. Chest examination; clear to auscultation. S1-S2 audible, no murmurs. Regular rhythm. Abdomen examination; soft, no organomegaly. Bowel sounds audible. G-tube in place. Extremity examination; no peripheral edema. Patient does have contractures involving all 4 extremities. FISCAL ASSISTANT examination; patient is unresponsive, but awake. Results Result Diagram: 09/25/16 1600 09/25/16 1600 Results 24 hrs Laboratory Tests Test 09/25/16 16:00 Activated Partial Thromboplast Time 31.4 Alanine Aminotransferase (ALT/SGPT) 23 Albumin 2.8 L Albumin/Globulin Ratio 0.71 Alkaline Phosphatase 93 Anion Gap 16 Aspartate Amino Transf (AST/SGOT) 21 Basophils % 0.1 Blood Morphology Comment Blood Urea Nitrogen 83 H Calcium Level 8.8 Carbon Dioxide Level 30 Chloride Level 113 H Creatinine 0.94 Direct Bilirubin 0.00 Eosinophils % 7.0 Globulin 3.90 H Glucose Level 124 Hematocrit 22.0 #L Hemoglobin 7.2 #L INR International Normalized Ratio 1.17 Indirect Bilirubin 0.0 Lipase 30 Lymphocytes # 0.6 L Lymphocytes % 7.6 L Mean Corpuscular Hemoglobin 29.6 Mean Corpuscular Hemoglobin Concent 32.6 Mean Corpuscular Volume 90.8 Mean Platelet Volume 9.8 Monocytes # 0.7 Monocytes % 9.1 Neutrophils # 5.8 Neutrophils % 74.7 Platelet Count 442 #H Platelet Morphology Comment Potassium Level 4.4 Prothrombin Time 15.0 H Prothrombin Time Ratio 1.2 Red Blood Count 2.42 #L Red Cell Distribution Width 17.6 H Sodium Level 155 H Total Bilirubin 0.0 L Total Protein 6.7 Troponin I 0.016 White Blood Count 7.8 # Medications Medications Current Medications Lorazepam (Ativan) 0.5 mg Q6H PRN IV ANXIETY; Start 09/25/16 at 18:00 Ondansetron HCl (Zofran Inj) 4 mg Q6H PRN IV NAUSEA AND/OR VOMITING; Start 09/25 at 18:00 Acetaminophen (Tylenol Tab) 650 mg Q6H PRN PO PAIN LEVEL 1-3 OR FEVER; Start at 18:00 Acetaminophen (Tylenol Supp) [address] PAIN LEVEL 1-3 OR FEVER; Start 09/25/16 at 18:00 Acetaminophen (Tylenol Tab) 650 mg Q4H PRN GTB MILD PAIN LEVEL 1-3; Start at 18:00 Amiodarone HCl (Cordarone) 200 mg DAILY GTB Last administered on 09/26/16 08:39 ; Admin Dose 200 MG; Start 09/25/16 at 18:30 Ascorbic Acid (Vitamin C) 500 mg DAILY GTB Last administered on 09/26/16 08:39 ; Admin Dose 500 MG; Start 09/26/16 at 09:00 Chlorhexidine Gluconate (Peridex) 15 ml Q12 MM Last administered on 09/26/16 08 :38; Admin Dose 15 ML; Start 09/25/16 at 21:00 Cholecalciferol (Vitamin D) 1,000 unit DAILY GTB Last administered on 09/26/16 08:39; Admin Dose 1,000 UNIT; Start 09/26/16 at 09:00 Eye Lubricant (Artificial Tears Oph) 2 drop BID BOTH EYES Last administered on 09/26/16 08:43; Admin Dose 2 DROP; Start 09/25/16 at 21:00 Docusate Sodium (Colace) 100 mg BID PO Last administered on 09/26/16 08:40; Admin Dose 100 MG; Start 09/25/16 at 21:00 Ferrous Sulfate (Feosol Liquid Cup) 300 mg DAILY GTB Last administered on 08:39; Admin Dose 300 MG; Start 09/26/16 at 09:00 Insulin Glargine (Lantus) 10 unit DAILY SC Last administered on 09/26/16 08:45 ; Admin Dose 10 UNIT; Start 09/26/16 at 09:00 Lansoprazole (Prevacid) 30 mg BID@,18 GTB Last administered on 09/26/16 05:48 ; Admin Dose 30 MG; Start 09/25/16 at 18:30 Magnesium Hydroxide (Milk Of Mag) 30 ml DAILY PRN GTB CONSTIPATION; Start at 18:00 Tramadol HCl (Ultram) 50 mg BID GTB Last administered on 09/26/16 09:17; Admin Dose 50 MG; Start 09/25/16 at 21:00 Zinc Sulfate (Zinc Sulfate) 220 mg DAILY GTB Last administered on 09/26/16 09: 17; Admin Dose 220 MG; Start 09/26/16 at 09:00 Lactobacillus Acidoph/Bulgaricus (Floranex) 1 tab DAILY PO Last administered on 09/26/16 08:40; Admin Dose 1 TAB; Start 09/26/16 at 09:00 Calcium/Vitamin D (Oyster Shell/ Vit-D (500/200)) 1 tab DAILY PO Last administered on 09/26/16 08:39; Admin Dose 1 TAB; Start 09/26/16 at 09:00 Miscellaneous Information 1 ea NOTE XX ; Start 09/25/16 at 18:30 Glucose (Glutose) 15 gm Q15M PRN PO DECREASED GLUCOSE; Start 09/25/16 at 18:30 Glucose (Glutose) 22.5 gm Q15M PRN PO DECREASED GLUCOSE; Start 09/25/16 at 18:30 Dextrose (D50w Syringe) 25 ml Q15M PRN IV DECREASED GLUCOSE; Start 09/25/16 at 18:30 Dextrose (D50w Syringe) 50 ml Q15M PRN IV DECREASED GLUCOSE; Start 09/25/16 at 18:30 Glucagon (Glucagen) 1 mg Q15M PRN IM DECREASED GLUCOSE; Start 09/25/16 at 18:30 Glucose 15 gm 15 gm Q15M PRN BUCCAL DECREASED GLUCOSE; Start 09/25/16 at 18:30 Dextrose (D5W) 1,000 ml @ 70 mls/hr [id number] IV Last administered on 09/26/16 01:41; Admin Dose 70 MLS/HR; Start 09/25/16 at 19:00 AARON HUFF Sep 26, 2016 11:31
--- NOTE | 2016-09-26 13:54 | PN ---
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 Anemia, multifactorial, mostly nutritional and chronic disease related, 2 units of PRBC today, follow up with H/H 2. Hypernatremia. increase free water per G-tube 3. Severe dehydration with BUN of 83. Place the patient on IV fluid. 4. Ventilator-dependent respiratory failure on vent. Pulmonology has been consulted. 5. History of arrhythmia. Continue amiodarone. 6. Diabetes mellitus. Continue Lantus. 7. Unstageable sacral decubitus. Wound care will be consulted. 8. For deep venous thrombosis prophylaxis, we will place him on sequential compression devices. Refrain from using any pharmacology deep vein thrombosis prophylaxis at this time secondary to anemia. 9. Gastrointestinal prophylaxis, on proton pump inhibitor. Subjective 24 Hr Interval Summary Free Text/Dictation nonverbal. no distress Exam/Review of Systems Vital Signs Vitals Vital Signs Date Time Temp Pulse Resp B/P Pulse Ox O2 Delivery O2 Flow Rate FiO2 09/26/16 12:29 79 09/26/16 11:48 98.6 18 112/68 100 09/26/16 11:15 40 09/25/16 22:41 Mechanical Ventilator Intake and Output 09/25/16 09/25/16 09/26/16 15:00 23:00 07:00 Intake Total 540 ml Output Total 800 ml Balance -260 ml Exam Constitutional: non-verbal Head: atraumatic, normocephalic Eyes: EOMI, PERRL, nl conjunctiva ENMT: nl external ears & nose, nl lips & teeth, nl nasal mucosa & septum Neck: non-tender, supple Respiratory: clear to auscultation, normal air movement, No congested cough, No crackles/rales, No diminished breath sounds, No intercostal retraction, No labored breathing, No respirations, No tactile fremitus, No wheezing Cardiovascular: nl pulses, regular rate and rhythm, No S3, No S4, No bruits, No diastolic murmur, No edema, No gallop, No irregular rhythm, No jugular venous distention (JVD), No murmurs/extra sounds, No other, No rub, No systolic murmur Gastrointestinal: nl liver, spleen, soft, No ascites, No bowel sounds, No distended, No firm, No hepatomegaly, No mass , No non-tender, No rebound or guarding, No splenomegaly, No surgical scars Musculoskeletal: nl extremities to inspection Extremities: normal pulses, No calf tenderness, No clubbing, No cyanosis, No edema, No palpable cord, No pitting pedal edema, No tenderness Neurological: unresponsive Skin: other (decubitus ulcers) Results Result Diagram: 09/25/16 1600 09/25/16 1600 Results 24 hrs Laboratory Tests Test 09/25/16 16:00 Activated Partial Thromboplast Time 31.4 Alanine Aminotransferase (ALT/SGPT) 23 Albumin 2.8 L Albumin/Globulin Ratio 0.71 Alkaline Phosphatase 93 Anion Gap 16 Aspartate Amino Transf (AST/SGOT) 21 Basophils % 0.1 Blood Morphology Comment Blood Urea Nitrogen 83 H Calcium Level 8.8 Carbon Dioxide Level 30 Chloride Level 113 H Creatinine 0.94 Direct Bilirubin 0.00 Eosinophils % 7.0 Globulin 3.90 H Glucose Level 124 Hematocrit 22.0 #L Hemoglobin 7.2 #L INR International Normalized Ratio 1.17 Indirect Bilirubin 0.0 Lipase 30 Lymphocytes # 0.6 L Lymphocytes % 7.6 L Mean Corpuscular Hemoglobin 29.6 Mean Corpuscular Hemoglobin Concent 32.6 Mean Corpuscular Volume 90.8 Mean Platelet Volume 9.8 Monocytes # 0.7 Monocytes % 9.1 Neutrophils # 5.8 Neutrophils % 74.7 Platelet Count 442 #H Platelet Morphology Comment Potassium Level 4.4 Prothrombin Time 15.0 H Prothrombin Time Ratio 1.2 Red Blood Count 2.42 #L Red Cell Distribution Width 17.6 H Sodium Level 155 H Total Bilirubin 0.0 L Total Protein 6.7 Troponin I 0.016 White Blood Count 7.8 # Medications Medications Current Medications Lorazepam (Ativan) 0.5 mg Q6H PRN IV ANXIETY; Start 09/25/16 at 18:00 Ondansetron HCl (Zofran Inj) 4 mg Q6H PRN IV NAUSEA AND/OR VOMITING; Start 09/25 at 18:00 Acetaminophen (Tylenol Tab) 650 mg Q6H PRN PO PAIN LEVEL 1-3 OR FEVER; Start at 18:00 Acetaminophen (Tylenol Supp) 650 mg Q6H PRN [place] PAIN LEVEL 1-3 OR FEVER; Start 09/25/16 at 18:00 Acetaminophen (Tylenol Tab) 650 mg Q4H PRN GTB MILD PAIN LEVEL 1-3 Last administered on 09/26/16 12:42; Admin Dose 650 MG; Start 09/25/16 at 18:00 Amiodarone HCl (Cordarone) 200 mg DAILY GTB Last administered on 09/26/16 08:39 ; Admin Dose 200 MG; Start 09/25/16 at 18:30 Ascorbic Acid (Vitamin C) 500 mg DAILY GTB Last administered on 09/26/16 08:39 ; Admin Dose 500 MG; Start 09/26/16 at 09:00 Chlorhexidine Gluconate (Peridex) 15 ml Q12 MM Last administered on 09/26/16 08 :38; Admin Dose 15 ML; Start 09/25/16 at 21:00 Cholecalciferol (Vitamin D) 1,000 unit DAILY GTB Last administered on 09/26/16 08:39; Admin Dose 1,000 UNIT; Start 09/26/16 at 09:00 Eye Lubricant (Artificial Tears Oph) 2 drop BID BOTH EYES Last administered on 09/26/16 08:43; Admin Dose 2 DROP; Start 09/25/16 at 21:00 Docusate Sodium (Colace) 100 mg BID PO Last administered on 09/26/16 08:40; Admin Dose 100 MG; Start 09/25/16 at 21:00 Ferrous Sulfate (Feosol Liquid Cup) 300 mg DAILY GTB Last administered on 08:39; Admin Dose 300 MG; Start 09/26/16 at 09:00 Insulin Glargine (Lantus) 10 unit DAILY SC Last administered on 09/26/16 08:45 ; Admin Dose 10 UNIT; Start 09/26/16 at 09:00 Lansoprazole (Prevacid) 30 mg BID@,18 GTB Last administered on 09/26/16 05:48 ; Admin Dose 30 MG; Start 09/25/16 at 18:30 Magnesium Hydroxide (Milk Of Mag) 30 ml DAILY PRN GTB CONSTIPATION; Start at 18:00 Tramadol HCl (Ultram) 50 mg BID GTB Last administered on 09/26/16 09:17; Admin Dose 50 MG; Start 09/25/16 at 21:00 Zinc Sulfate (Zinc Sulfate) 220 mg DAILY GTB Last administered on 09/26/16 09: 17; Admin Dose 220 MG; Start 09/26/16 at 09:00 Lactobacillus Acidoph/Bulgaricus (Floranex) 1 tab DAILY PO Last administered on 09/26/16 08:40; Admin Dose 1 TAB; Start 09/26/16 at 09:00 Calcium/Vitamin D (Oyster Shell/ Vit-D (500/200)) 1 tab DAILY PO Last administered on 09/26/16 08:39; Admin Dose 1 TAB; Start 09/26/16 at 09:00 Miscellaneous Information 1 ea NOTE XX ; Start 09/25/16 at 18:30 Glucose (Glutose) 15 gm Q15M PRN PO DECREASED GLUCOSE; Start 09/25/16 at 18:30 Glucose (Glutose) 22.5 gm Q15M PRN PO DECREASED GLUCOSE; Start 09/25/16 at 18:30 Dextrose (D50w Syringe) 25 ml Q15M PRN IV DECREASED GLUCOSE; Start 09/25/16 at 18:30 Dextrose (D50w Syringe) 50 ml Q15M PRN IV DECREASED GLUCOSE; Start 09/25/16 at 18:30 Glucagon (Glucagen) 1 mg Q15M PRN IM DECREASED GLUCOSE; Start 09/25/16 at 18:30 Glucose 15 gm 15 gm Q15M PRN BUCCAL DECREASED GLUCOSE; Start 09/25/16 at 18:30 Dextrose (D5W) 1,000 ml @ 70 mls/hr [id number] IV Last administered on 09/26/16 01:41; Admin Dose 70 MLS/HR; Start 09/25/16 at 19:00 CRISTIAN OSBORNE MD Sep 26, 2016 13:54
[2016-09-26 18:12] LABS: HEMATOCRIT 26.9 % (42.0-52.0); HEMOGLOBIN 8.1 g/dl (14.0-18.0); MEAN CORPUSCULAR HEMOGLOBIN 29.7 pg (29.0-33.0); MEAN CORPUSCULAR HGB CONC 30.1 g/dl (32.0-37.0); MEAN CORPUSCULAR VOLUME 98.5 fl (82.0-101.0); MEAN PLATELET VOLUME 11.8 fl (7.4-10.4); PLATELET COUNT 382 10^3/UL (140-415); RED BLOOD COUNT 2.73 10^6/ul (4.70-6.10); RED CELL DISTRIBUTION WIDTH 16.9 % (11.5-14.5); WHITE BLOOD COUNT 6.9 10^3/ul (4.8-10.8)
[2016-09-26 18:17] LABS: POTASSIUM 4.4 mmol/L (3.5-5.1)
[2016-09-26 18:19] LABS: CREATININE 0.99 mg/dl (0.61-1.24)
[2016-09-26 18:20] LABS: CALCIUM 8.8 mg/dl (8.4-10.2)
[2016-09-26] MEDS: DOCUSATE SODIUM 10 MG/ML (10ML CUP) PO SCH (20:52)
[2016-09-26 22:43] LABS: ADD SCAN DIFF NO
[2016-09-26 22:44] LABS: EOSINOPHILS # 0.5 10^3/ul (0.0-0.5); LYMPHOCYTES # 0.6 10^3/ul (0.8-2.9); MONOCYTE # 0.1 10^3/ul (0.3-0.9); NEUTROPHIL # 5.6 10^3/ul (1.6-7.5)
[2016-09-27] VITALS (22 sets, daily range): BP systolic 122–153; BP diastolic 67–86; PULSE 66–73; RESP 15–22
[2016-09-27] MEDS: LANSOPRAZOLE 30 MG CAP GTB SCH ×2 (05:28→18:44)
[2016-09-27 08:18] LABS: ADD SCAN DIFF NO
[2016-09-27 08:27] LABS: ABNORMAL IP MESSAGE 1; BASOPHILS % 0.3 % (0.0-2.0); EOSINOPHILS # 0.5 10^3/ul (0.0-0.5); EOSINOPHILS % 8.4 % (0.0-7.0); HEMATOCRIT 26.8 % (42.0-52.0); HEMOGLOBIN 8.2 g/dl (14.0-18.0); LYMPHOCYTES # 0.6 10^3/ul (0.8-2.9); LYMPHOCYTES % 9.8 % (15.0-51.0); MEAN CORPUSCULAR HEMOGLOBIN 29.8 pg (29.0-33.0); MEAN CORPUSCULAR HGB CONC 30.6 g/dl (32.0-37.0); MEAN CORPUSCULAR VOLUME 97.5 fl (82.0-101.0); MEAN PLATELET VOLUME 11.9 fl (7.4-10.4); MONOCYTE # 0.5 10^3/ul (0.3-0.9); MONOCYTES % 8.8 % (0.0-11.0); NEUTROPHIL # 4.2 10^3/ul (1.6-7.5); PLATELET COUNT 326 10^3/UL (140-415); RED BLOOD COUNT 2.75 10^6/ul (4.70-6.10); RED CELL DISTRIBUTION WIDTH 16.9 % (11.5-14.5); WHITE BLOOD COUNT 5.9 10^3/ul (4.8-10.8)
[2016-09-27 08:45] LABS: POTASSIUM 4.4 mmol/L (3.5-5.1)
[2016-09-27 08:48] LABS: CREATININE 0.92 mg/dl (0.61-1.24)
[2016-09-27 08:49] LABS: CALCIUM 8.5 mg/dl (8.4-10.2)
[2016-09-27] MEDS: CALCIUM/VITAMIN D (500/200) TAB PO SCH (10:10)
[2016-09-27] MEDS: ASCORBIC ACID 500 MG TAB.CHEW GTB SCH (10:10)
[2016-09-27] MEDS: CHLORHEXIDINE GLUCONATE 15 ML UD CUP MM SCH ×2 (10:10→21:00)
[2016-09-27] MEDS: DOCUSATE SODIUM 10 MG/ML (10ML CUP) PO SCH ×2 (10:10→21:00)
[2016-09-27] MEDS: LACTOBACILLUS CHEW TAB PO SCH (10:10)
[2016-09-27] MEDS: FERROUS SULFATE 60 MG/ML 5ML CUP GTB SCH (10:10)
[2016-09-27] MEDS: CHOLECALCIFEROL 1,000 UNIT TAB GTB SCH (10:10)
[2016-09-27] MEDS: AMIODARONE 200 MG TAB GTB SCH (10:11)
[2016-09-27] MEDS: ZINC SULFATE 220 MG CAP GTB SCH (10:11)
[2016-09-27] MEDS: INSULIN GLARGINE [LANtus] 3 ML PEN SC SCH (10:17)
[2016-09-27] MEDS: ARTIFICIAL TEARS 15 ML OPH BOTH EYES SCH ×2 (10:30→21:00)
[2016-09-27] MEDS: traMADol 50 MG TAB GTB SCH ×2 (10:30→21:00)
--- NOTE | 2016-09-27 11:31 | PDOCDIS ---
Discharge Instructions CONDITION Patient Condition: Guarded HOME CARE INSTRUCTIONS: Special Diet: G tube/ glucerna with free water IAM GÓMEZ MD Sep 27, 2016 11:31
[2016-09-27] MEDS ORDERED: METR500T PO (11:33)
--- NOTE | 2016-09-27 11:49 | CONS ---
Date/Time of Note Date/Time of Note DATE: 09/27/16 TIME: 11:46 Assessment/Plan Assessment/Plan Additional Assessment/Plan Current ventilator settings are; AC of 16, tidal volume 550, PEEP of 5, 40% FiO2. Assessment and recommendations; 1. 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 2. Anemia status post blood transfusion. 3. Hypernatremia with interval improvement after hydration. 4. DM. Continue current treatment. Consultation Date/Type/Reason Admit Date/Time Sep 25, 2016 at 23:08 Initial Consult Date 09/26/16 Type of Consultation: Pulmonary 24 HR Interval Summary Free Text/Dictation Patient condition remains stable. Remains ventilator dependent. Has remained hemodynamically stable. General examination; elderly male, on mechanical ventilation via tracheostomy, awake but unresponsive. Currently in no distress. Exam/Review of Systems Vital Signs Vitals Vital Signs Date Time Temp Pulse Resp B/P Pulse Ox O2 Delivery O2 Flow Rate FiO2 09/27/16 09:16 74 18 99 40 09/27/16 07:49 98.3 153/86 09/27/16 04:01 Mechanical Ventilator Intake and Output 09/26/16 09/26/16 09/27/16 15:00 23:00 07:00 Intake Total 350 ml 2390 ml Output Total 1450 ml Balance 350 ml 940 ml Exam HEENT examination; supple neck, tracheostomy in place. Pupils are midsize reactive to light. Patient is edentulous. No neck masses. No thyromegaly. Chest examination; clear to auscultation. S1-S2 audible, no murmurs. Abdomen examination; soft, bowel sounds audible. G-tube in place. No organomegaly. Extremity examination; no peripheral edema. Patient has contractures involving all 4 extremities. 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 Results Result Diagram: 09/27/16 0758 09/27/16 0758 Results 24 hrs Laboratory Tests Test 09/26/16 17:35 09/27/16 07:58 Anion Gap 14 14 Band Neutrophils % 3.0 Basophils # 0.0 Basophils % 0.3 Blood Urea Nitrogen 68 H 60 H Calcium Level 8.8 8.5 Carbon Dioxide Level 28 27 Chloride Level 117 H 111 H Creatinine 0.99 0.92 Eosinophils # 0.5 0.5 Eosinophils % 7.0 8.4 H Glucose Level 108 108 Hematocrit 26.9 #L 26.8 L Hemoglobin 8.1 L 8.2 L Lymphocytes # 0.6 L 0.6 L Lymphocytes % 8.0 L 9.8 L Mean Corpuscular Hemoglobin 29.7 29.8 Mean Corpuscular Hemoglobin Concent 30.1 L 30.6 L Mean Corpuscular Volume 98.5 97.5 Mean Platelet Volume 11.8 #H 11.9 H Monocytes # 0.1 L 0.5 Monocytes % 1.0 8.8 Neutrophils # 5.6 4.2 Neutrophils % 81.0 H 71.0 Nucleated Red Blood Cells # 0.0 Nucleated Red Blood Cells % 0.0 Platelet Count 382 326 Potassium Level 4.4 4.4 Red Blood Count 2.73 L 2.75 L Red Cell Distribution Width 16.9 H 16.9 H Sodium Level 155 H 148 H White Blood Count 6.9 5.9 Medications Medications Current Medications Lorazepam (Ativan) 0.5 mg Q6H PRN IV ANXIETY; Start 09/25/16 at 18:00 Ondansetron HCl (Zofran Inj) 4 mg Q6H PRN IV NAUSEA AND/OR VOMITING; Start 09/25 at 18:00 Acetaminophen (Tylenol Tab) 650 mg Q6H PRN PO PAIN LEVEL 1-3 OR FEVER; Start at 18:00 Acetaminophen (Tylenol Supp) 650 mg Q6H PRN [place] PAIN LEVEL 1-3 OR FEVER; Start 09/25/16 at 18:00 Acetaminophen (Tylenol Tab) 650 mg Q4H PRN GTB MILD PAIN LEVEL 1-3 Last administered on 09/26/16 12:42; Admin Dose 650 MG; Start 09/25/16 at 18:00 Amiodarone HCl (Cordarone) 200 mg DAILY GTB Last administered on 09/27/16 10: 11; Admin Dose 200 MG; Start 09/25/16 at 18:30 Ascorbic Acid (Vitamin C) 500 mg DAILY GTB Last administered on 09/27/16 10:10 ; Admin Dose 500 MG; Start 09/26/16 at 09:00 Chlorhexidine Gluconate (Peridex) 15 ml Q12 MM Last administered on 09/27/16 10:10; Admin Dose 15 ML; Start 09/25/16 at 21:00 Cholecalciferol (Vitamin D) 1,000 unit DAILY GTB Last administered on 10:10; Admin Dose 1,000 UNIT; Start 09/26/16 at 09:00 Eye Lubricant (Artificial Tears Oph) 2 drop BID BOTH EYES Last administered on 09/27/16 10:30; Admin Dose 2 DROP; Start 09/25/16 at 21:00 Ferrous Sulfate (Feosol Liquid Cup) 300 mg DAILY GTB Last administered on 10:10; Admin Dose 300 MG; Start 09/26/16 at 09:00 Insulin Glargine (Lantus) 10 unit DAILY SC Last administered on 09/27/16 10:17 ; Admin Dose 10 UNIT; Start 09/26/16 at 09:00 Lansoprazole (Prevacid) 30 mg BID@,18 GTB Last administered on 09/27/16 05: 28; Admin Dose 30 MG; Start 09/25/16 at 18:30 Magnesium Hydroxide (Milk Of Mag) 30 ml DAILY PRN GTB CONSTIPATION; Start at 18:00 Tramadol HCl (Ultram) 50 mg BID GTB Last administered on 09/27/16 10:30; Admin Dose 50 MG; Start 09/25/16 at 21:00 Zinc Sulfate (Zinc Sulfate) 220 mg DAILY GTB Last administered on 09/27/16 10: 11; Admin Dose 220 MG; Start 09/26/16 at 09:00 Lactobacillus Acidoph/Bulgaricus (Floranex) 1 tab DAILY PO Last administered on 09/27/16 10:10; Admin Dose 1 TAB; Start 09/26/16 at 09:00 Calcium/Vitamin D (Oyster Shell/ Vit-D (500/200)) 1 tab DAILY PO Last administered on 09/27/16 10:10; Admin Dose 1 TAB; Start 09/26/16 at 09:00 Miscellaneous Information 1 ea NOTE XX ; Start 09/25/16 at 18:30 Glucose (Glutose) 15 gm Q15M PRN PO DECREASED GLUCOSE; Start 09/25/16 at 18:30 Glucose (Glutose) 22.5 gm Q15M PRN PO DECREASED GLUCOSE; Start 09/25/16 at 18:30 Dextrose (D50w Syringe) 25 ml Q15M PRN IV DECREASED GLUCOSE; Start 09/25/16 at 18:30 Dextrose (D50w Syringe) 50 ml Q15M PRN IV DECREASED GLUCOSE; Start 09/25/16 at 18:30 Glucagon (Glucagen) 1 mg Q15M PRN IM DECREASED GLUCOSE; Start 09/25/16 at 18:30 Glucose 15 gm 15 gm Q15M PRN BUCCAL DECREASED GLUCOSE; Start 09/25/16 at 18:30 Dextrose (D5W) 1,000 ml @ 70 mls/hr [id number] IV Last administered on 09/26/16 23:33; Admin Dose 70 MLS/HR; Start 09/25/16 at 19:00 Docusate Sodium (Colace Liquid Cup) 100 mg BID PO Last administered on 10:10; Admin Dose 100 MG; Start 09/26/16 at 21:00 AARON HUFF Sep 27, 2016 11:49
--- NOTE | 2016-09-27 12:00 | DS ---
Date/Time of Note Date/Time of Note DATE: 09/27/16 TIME: 11:50 Discharge Summary Admission/Discharge Info Admit Date/Time Sep 25, 2016 at 23:08 Discharge Date/Time 09/27/2016 Final Diagnosis ASSESSMENT AND PLAN: 1. Anemia with history of gastric ulcer. Status post transfusion of 2 units of packed red blood cells. Continue proton pump inhibitor and ferrous sulfate 2. Hypernatremia. The patient has been placed on free water and D5W. Follow up electrolytes 3. Severe dehydration. Improved status post IV fluid. 4. Ventilator-dependent respiratory failure on vent. Pulmonology consulted. Continue vent management 5. History of arrhythmia. Continue amiodarone. 6. Diabetes mellitus. Continue Lantus and insulin sliding scale 7. Unstageable sacral decubitus. Wound care will be consulted. 8. History of GI bleed, continue PPI 9. C. difficile colitis, patient has been started on Flagyl 15 days, follow- up stool C. difficile at [facility] on 10/12/2016 Consults Pulmonology Hospital Course This is a 70-year-old gentleman who is known to our service from prior hospitalization with a past medical history of sepsis secondary to urinary tract infection, line sepsis, sacral decubitus, renal insufficiency, hyperkalemia, transaminitis, diabetes mellitus, unstageable sacral decubitus, anemia requiring transfusions, percutaneous endoscopic gastrostomy tube dysfunction, vent-dependent respiratory failure, chronic encephalopathy, history of methicillin-resistant Staphylococcus aureus bacteremia who resides at [facility], and the patient had a blood test, CBC evaluation, at that facility which was found to show hemoglobin of 6.3 requiring transfusion. That patient does have a history of gastritis and peptic ulcer disease and has been on PPI. He is in chronic vegetative state, requiring mechanical ventilation and tracheostomy tube and uses gastrostomy feeding tube. During the course of emergency room he was typed and screened and transfused 2 units of packed red blood cells. The following day patient was found to have loose bowel and his stool was sent for culture and C. difficile which was found to be positive for C. difficile and has been started on Flagyl. Regarding his breathing status pulmonology was consulted and patient vent was managed by pulmonary. Regards to his diabetic mellitus patient was placed on Lantus insulin sliding scale and Glucerna via G-tube feeding. He was found to be severely dehydrated and hypernatremic therefore he was started on D5W and also was transfused 2 units of packed red blood cell. Status post transfusion and IV fluid along with free water through G-tube his hypernatremia has been improving which this order will be continued while patient is being [facility] At this time patient is in his baseline condition and will be transferred back to jail facility for continuation of IV fluid, wound care and he will require frequent blood evaluation/CBC at jail facility. Home Meds Active Scripts Metronidazole* (Flagyl*) 500 Mg Tablet, 500 MG PO TID for 15 Days, TAB Prov:IAM GÓMEZ MD 09/27/16 Reported Medications Lansoprazole* (Lansoprazole*) 30 Mg Capsule.dr, 30 MG GTB BID, CAP 09/25/16 Insulin Glargine* (Lantus*) 100 Unit/Ml Soln, 15 UNIT SC DAILY, #1 VIAL 09/25/16 Ferrous Sulfate* (Ferrous Sulfate*) 220 Mg/5 Ml Solution, 220 MG GTB DAILY, ML 09/25/16 Calcium Carbonate-Vitamin D3 (Calcium 500 + D Tablet) 1 Each Tablet, 1 TAB GTB DAILY, TAB 09/25/16 Cran/Vitc/Mannose/Inulin/Brom (Uti-Stat Liquid) 3,875 Mg/30 Ml Liquid, 30 ML GTB BID 09/25/16 Zinc Sulfate* (Zinc Sulfate*) 220 Mg Tablet, 220 MG GTB DAILY, TAB 08/23/16 Cholecalciferol* (Vitamin D3*) 1,000 Unit Tablet, 1000 UNIT GTB DAILY, TAB 08/23/16 Ascorbic Acid* (Vitamin C* Liq) 500 Mg/5 Ml Syrup, 500 MG GTB DAILY, ML 08/23/16 Acetaminophen* (Tylenol*) 325 Mg Tablet, 650 MG GTB Q4H Y for MILD PAIN LEVEL 1- 3, TAB FOR FEVER AND TRACH TUBE CHANGE 08/23/16 Tramadol Hcl* (Ultram*) 50 Mg Tablet, 50 MG GTB BID, TAB 08/23/16 Chlorhexidine Gluconate (Paroex) 473 Ml Mouthwash, 473 ML MM Q12, BOTTLE 08/23/16 Dextran/Hypromellose/Glycerin (Artificial Tears Drops) 15 Ml Drops, 2 DROP BOTH EYES BID, EA 08/23/16 Amiodarone Hcl* (Amiodarone Hcl*) 200 Mg Tablet, 200 MG GTB DAILY, #30 TAB HOLD IF AP BELOW 60 08/23/16 Albuterol Sulfate* (Albuterol Sulfate* Neb) 0.083%-3 Ml Neb, 2.5 MG NEB Q3H Y for WHEEZING AND SOB, #30 VIAL 08/23/16 Acidophilus/Pectin, [place] (ACIDOPHILUS PROBIOTIC CAPSULE) 1 Each Capsule, 1 EACH GTB DAILY, CAP 08/23/16 Discontinued Reported Medications Magnesium Hydroxide* (Milk Of Magnesia*) 400 Mg/5 Ml Oral.susp, 30 ML GTB DAILY Y for PRN, ML 09/25/16 Sod Phosphate/Sod Biphosphate* (Fleet* Enema Pediatric) 66.6 Ml Soln, 66.6 ML FL Q2DAYS Y for CONSTIPATION, ENEMA 09/25/16 Acetaminophen* (Tylenol*) 500 Mg Tab, 1000 MG GTB Q4H Y for PAIN LEVEL 4-10, TAB 09/25/16 Docusate Sodium* (Docusate Sodium*) 100 Mg Capsule, 100 MG GTB BID, #60 CAP 08/23/16 [Ferrous Sulfate] No Conflict Check, 7.5 ML GTB BID 08/23/16 Omeprazole* (Omeprazole*) 40 Mg Capsule.dr, 40 MG GTB BID, #30 CAP 08/23/16 Multivitamin with Minerals (Multivitamins with Minerals) 1 Each Tablet, 1 EACH GTB DAILY, TAB 08/23/16 Bisacodyl* (Bisacodyl*) 10 Mg Supp, 10 MG FL Q24H Y for PRN, SUPP 08/23/16 Discontinued Scripts Insulin Glargine* (Lantus*) 100 Unit/Ml Soln, 10 UNIT SC QPM for 60 Days Prov:AIM GÓMEZ MD 08/30/16 Pending Labs Laboratory Tests Test 09/26/16 17:35 09/27/16 07:58 Anion Gap 14 (8-16) 14 (8-16) Band Neutrophils % 3.0% (0.0-5.0) Basophils # 10^3/ul (0.0-0.1) 0.010^3/ul (0.0-0.1) Basophils % % (0.0-2.0) 0.3% (0.0-2.0) Blood Urea Nitrogen 68mg/dl (7-20) 60mg/dl (7-20) Calcium Level 8.8mg/dl (8.4-10.2) 8.5mg/dl (8.4-10.2) Carbon Dioxide Level 28mmol/L (21-31) 27mmol/L (21-31) Chloride Level 117mmol/L (97-110) 111mmol/L (97-110) Creatinine 0.99mg/dl (0.61-1.24) 0.92mg/dl (0.61-1.24) Eosinophils # 0.510^3/ul (0.0-0.5) 0.510^3/ul (0.0-0.5) Eosinophils % 7.0% (0.0-7.0) 8.4% (0.0-7.0) Glucose Level 108mg/dl (70-220) 108mg/dl (70-220) Hematocrit 26.9% (42.0-52.0) 26.8% (42.0-52.0) Hemoglobin 8.1g/dl (14.0-18.0) 8.2g/dl (14.0-18.0) Lymphocytes # 0.610^3/ul (0.8-2.9) 0.610^3/ul (0.8-2.9) Lymphocytes % 8.0% (15.0-51.0) 9.8% (15.0-51.0) Mean Corpuscular Hemoglobin 29.7pg (29.0-33.0) 29.8pg (29.0-33.0) Mean Corpuscular Hemoglobin Concent 30.1g/dl (32.0-37.0) 30.6g/dl (32.0-37.0) Mean Corpuscular Volume 98.5fl (82.0-101.0) 97.5fl (82.0-101.0) Mean Platelet Volume 11.8fl (7.4-10.4) 11.9fl (7.4-10.4) Monocytes # 0.110^3/ul (0.3-0.9) 0.510^3/ul (0.3-0.9) Monocytes % 1.0% (0.0-11.0) 8.8% (0.0-11.0) Neutrophils # 5.610^3/ul (1.6-7.5) 4.210^3/ul (1.6-7.5) Neutrophils % 81.0% (39.0-77.0) 71.0% (39.0-77.0) Nucleated Red Blood Cells # 10^3/ul (0.0-0.0) 0.010^3/ul (0.0-0.0) Nucleated Red Blood Cells % /100WBC (0.0-0.0) 0.0/100WBC (0.0-0.0) Platelet Count 80422^3/UL (140-415) 32676^3/UL (140-415) Potassium Level 4.4mmol/L (3.5-5.1) 4.4mmol/L (3.5-5.1) Red Blood Count 2.7310^6/ul (4.70-6.10) 2.7510^6/ul (4.70-6.10) Red Cell Distribution Width 16.9% (11.5-14.5) 16.9% (11.5-14.5) Sodium Level 155mmol/L (135-144) 148mmol/L (135-144) White Blood Count 6.910^3/ul (4.8-10.8) 5.910^3/ul (4.8-10.8) Microbiology Date/Time Source Procedure Growth Status 09/26/16 14:15 Feces Clostridium difficile Toxin Assay - Final Complete IAM GÓMEZ MD Sep 27, 2016 12:00
[2016-09-27] MEDS: metroNIDAZOLE 500 MG TAB GTB SCH ×2 (13:29→18:44)
[2016-09-27] MEDS: DEXTROSE 5% 1,000 ML IV SCH (21:34)
== END 2016-09-28 00:23 | DRG 811 ==
LOC: E/R 14:34 → TEL 23:01
PROVIDERS: ADMIT Family Medicine; ATTEND Family Medicine
PROC: 5A1945Z Respiratory Ventilation, 24-96 Consecutive Hours (ICD-10-PCS; principal; 2016-09-25)
PROC: 30233N1 Transfusion of Nonautologous Red Blood Cells into Peripheral Vein, Percutaneous Approach (ICD-10-PCS; 2016-09-25)
DX: D62 Acute posthemorrhagic anemia (principal); L89.154 Pressure ulcer of sacral region, stage 4; Z99.11 Dependence on respirator [ventilator] status; R40.3 Persistent vegetative state; G93.1 Anoxic brain damage, not elsewhere classified; E87.0 Hyperosmolality and hypernatremia; J96.11 Chronic respiratory failure with hypoxia; J96.12 Chronic respiratory failure with hypercapnia; A04.7 Enterocolitis due to Clostridium difficile; E86.0 Dehydration; E11.9 Type 2 diabetes mellitus without complications; D63.8 Anemia in other chronic diseases classified elsewhere; Z79.4 Long term (current) use of insulin; Z93.1 Gastrostomy status; Z93.0 Tracheostomy status
CPT/HCPCS: 36415; 36430; 71010; 80048; 80053; 82962; 83690; 84484; 85025; 85610; 85730; 86850; 86900; 86901; 86920; 87075; 87081; 87400; 93005; 94002; 94003; J1815; J7030; J7040; J7070; P9016

== ENCOUNTER 2016-10-29 16:12 | Inpatient (IN) | END 2016-11-01 22:29 | DRG 70 | DX: G93.49 Other encephalopathy (principal); N17.0 Acute kidney failure with tubular necrosis; Z99.11 Dependence on respirator [ventilator] status; E87.0 Hyperosmolality and hypernatremia; L89.154 Pressure ulcer of sacral region, stage 4; J96.10 Chronic respiratory failure, unspecified whether with hypoxia or hypercapnia; L89.102 Pressure ulcer of unspecified part of back, stage 2; K92.2 Gastrointestinal hemorrhage, unspecified; L89.893 Pressure ulcer of other site, stage 3; B37.49 Other urogenital candidiasis; Z93.1 Gastrostomy status; D64.9 Anemia, unspecified; E11.9 Type 2 diabetes mellitus without complications; K20.9 Esophagitis, unspecified; K25.9 Gastric ulcer, unspecified as acute or chronic, without hemorrhage or perforation; K29.80 Duodenitis without bleeding; L89.212 Pressure ulcer of right hip, stage 2; L89.011 Pressure ulcer of right elbow, stage 1 ==

== ENCOUNTER 2016-12-06 13:59 | Inpatient (IN) | payer OTHER ==
[~2016-12-06] VITALS: Ht 167.6 cm; Wt 60.0 kg
[~2016-12-06 13:59] MED LIST changes: -ACID1CAP GTB; +BISA10SU75 PR; +CALC-84 GTB; +CRAN3875 GTB; +DOCU-144 GTB; -DOCU-159 GTB; -DULR PR; +FERR220S13 GTB; -FERROUS SULFATE GTB; +FLEETPED PR; +LANS30CA GTB; +MAGN400O4 GTB; -MULT-105 GTB; +MULT473L10 GTB; -OMEP40CA6 GTB
[2016-12-06] MEDS ORDERED: SOD CHLORIDE 0.9% 1,000 ML IV STA (14:45)
[2016-12-06] MEDS ORDERED: SOD CHLORIDE 0.9% 1,000 ML IV ONE ×3 (15:00→17:30)
[2016-12-06] MEDS ORDERED: CALCIUM GLUCONATE 10% 1 GM in SOD CHLORIDE 0.9% 100 ML IVPB ONE (15:30)
[2016-12-06 15:32] LABS: ADD SCAN DIFF NO
[2016-12-06 15:39] LABS: ABNORMAL IP MESSAGE 1; HEMATOCRIT 24.7 % (42.0-52.0); MEAN CORPUSCULAR HEMOGLOBIN 29.5 pg (29.0-33.0); MEAN CORPUSCULAR HGB CONC 25.9 g/dl (32.0-37.0); MEAN CORPUSCULAR VOLUME 113.8 fl (82.0-101.0); MEAN PLATELET VOLUME 13.5 fl (7.4-10.4); PLATELET COUNT 188 10^3/UL (140-415); RED BLOOD COUNT 2.17 10^6/ul (4.70-6.10); RED CELL DISTRIBUTION WIDTH 17.2 % (11.5-14.5)
[2016-12-06] MEDS ORDERED: ACID1CAP GTB (15:39)
[2016-12-06] MEDS ORDERED: CRAN425C GTB (15:42)
[2016-12-06] MEDS ORDERED: TYL500 PO (15:43)
[2016-12-06] MEDS ORDERED: ACET325S GTB (15:47)
[2016-12-06] MEDS ORDERED: DEXT15DR2 BOTH EYES (15:52)
[2016-12-06] MEDS ORDERED: CHOL100062 GTB (15:54)
[2016-12-06] MEDS ORDERED: CALC-84 GTB (15:56)
[2016-12-06 16:08] LABS: INR 1.28; PROTIME 16.1 Sec (12.2-14.2); PT RATIO 1.3
--- NOTE | 2016-12-06 16:15 | RADRPT ---
PROCEDURE: Chest x-ray CLINICAL INDICATION: Abdominal pain TECHNIQUE: Chest single view COMPARISON: 10/29/2016 FINDINGS: There is tracheostomy tube which terminates 8 cm above the gamal. Heart is normal in size. There is mild atherosclerotic aortic calcification. Pulmonary vessels are normal in caliber. There is a new right lower lobe pneumonia. Left lung is clear. Costophrenic angles are sharp. Bones are oste openic IMPRESSION: 1. tracheostomy tube in good position. 2. New right lower lobe pneumonia. 3. Atherosclerotic aortic calcification RPTAT: HH .Devon Sears MD, Date Time Electronically viewed and signed by .Devon Sears MD, MD on 12/06/2016 16:15 .W/
[2016-12-06 16:30] LABS: ADD UMIC YES; URINE BILIRUBIN (Dip) NEGATIVE (NEGATIVE); URINE BLOOD (Dip) 3+ (NEGATIVE); URINE COLOR LT. YELLOW (YELLOW); URINE GLUCOSE (Dip) NEGATIVE (NEGATIVE); URINE KETONES (Dip) NEGATIVE (NEGATIVE); URINE LEUKOCYTE ESTERASE (Dip) 3+ (NEGATIVE); URINE NITRITE (Dip) NEGATIVE (NEGATIVE); URINE TOTAL PROTEIN (Dip) 2+ (NEGATIVE); URINE UROBILINOGEN (Dip) 0.2 E.U./dL (0.1-1.0)
[2016-12-06 16:33] LABS: ALANINE AMINOTRANSFERASE 20 IU/L (13-69); ALBUMIN 3.2 g/dl (3.3-4.9); ALBUMIN/GLOBULIN RATIO 0.74; ALKALINE PHOSPHATASE 100 IU/L (42-121); ANION GAP 19 (8-16); ASPARTATE AMINO TRANSFERASE 14 IU/L (15-46); CALCIUM 10.9 mg/dl (8.4-10.2); CARBON DIOXIDE 28 mmol/L (21-31); CHLORIDE 135 mmol/L (97-110); CREATININE 4.65 mg/dl (0.61-1.24); GLUCOSE 218 mg/dl (70-220); POTASSIUM 4.9 mmol/L (3.5-5.1); TOTAL PROTEIN 7.5 g/dl (6.1-8.1)
[2016-12-06 16:39] LABS: BACTERIA,URINE MANY; TRANSITIONAL EPI CELLS,URINE FEW
[2016-12-06 16:43] LABS: BLOOD UREA NITROGEN > 240 mg/dl (7-20)
[2016-12-06 16:45] LABS: TROPONIN-I 0.021 ng/ml (0.00-0.12)
[2016-12-06 16:48] LABS: SODIUM 177 mmol/L (135-144)
[2016-12-06] MEDS ORDERED: VANCOMYCIN 1 GM (PMX) 250 ML IVPB SCH (17:00)
--- NOTE | 2016-12-06 17:34 | ERA ---
ER Documentation Chief Complaint Date/Time DATE: 12/06/16 TIME: 17:19 Chief Complaint SENT FROM [facility] FOR EVAL OF HYPER K+ HYPER NA+ HPI 71-year-old man brought in by private ambulance from snf for elevated BUN/creatinine as well as hyperkalemia. He was given a dose of Kayexalate prior to transfer. He was recently diagnosed with sepsis and treated with imipenem and piperacillin and tazobactam intravenously. He has had no recent fevers or chills, no vomiting or diarrhea, no bright red blood per rectum. HPI supplemented by reviewing past medical history, review snf records, speaking to EMS, and nursing staff. ROS All systems reviewed and are negative except as per history of present illness. Medications Home Meds Reported Medications Calcium Carbonate-Vitamin D3 (Calcium 500 + D Tablet) 1 Each Tablet, 1 TAB GTB DAILY, TAB 12/06/16 Cholecalciferol* (Vitamin D3*) 1,000 Unit Tablet, 1000 UNIT GTB DAILY, TAB 12/06/16 Dextran/Hypromellose/Glycerin (Artificial Tears Drops) 15 Ml Drops, 2 DROP BOTH EYES BID, EA 12/06/16 Acetaminophen* (Acetaminophen* Susp) 325 Mg/10.15 Ml Solution, 650 MG GTB NEEDED, ML GIVE 30 MIN PRIOR TO TRACH CHANGE 12/06/16 Acetaminophen* (Tylenol*) 500 Mg Tab, 1000 MG PO Q6H Y for PAIN LEVEL 4-6/10, TAB 12/06/16 Cranberry Extract (Cranberry) 425 Mg Capsule, 425 MG GTB DAILY, CAP 12/06/16 Acidophilus/Pectin, [place] (ACIDOPHILUS PROBIOTIC CAPSULE) 1 Each Capsule, 1 EACH GTB BID, CAP 12/06/16 Multivitamins* (Multi-Delyn* Liq) 473 Ml Liquid, 5 ML GTB DAILY, ML 10/29/16 Magnesium Hydroxide* (Milk Of Magnesia*) 400 Mg/5 Ml Oral.susp, 30 ML GTB Q24H Y for PRN, ML 10/29/16 Sod Phosphate/Sod Biphosphate* (Fleet* Enema Pediatric) 66.6 Ml Soln, 66.6 ML MI Q2D Y for CONSTIPATION, ENEMA 10/29/16 Bisacodyl* (Bisacodyl*) 10 Mg Supp, 10 MG MI DAILY Y for PRN, SUPP 10/29/16 Docusate Sodium* (Colace*) 100 Mg Capsule, 100 MG GTB QHS, #30 CAP 10/29/16 Lansoprazole* (Lansoprazole*) 30 Mg Capsule.dr, 30 MG GTB BID, CAP 09/25/16 Insulin Glargine* (Lantus*) 100 Unit/Ml Soln, 10 UNIT SC QHS, #1 VIAL 09/25/16 Ferrous Sulfate* (Ferrous Sulfate*) 220 Mg/5 Ml Solution, 220 MG GTB DAILY, ML 09/25/16 Cran/Vitc/Mannose/Inulin/Brom (Uti-Stat Liquid) 3,875 Mg/30 Ml Liquid, 30 ML GTB BID 09/25/16 Zinc Sulfate* (Zinc Sulfate*) 220 Mg Tablet, 220 MG GTB DAILY, TAB 08/23/16 Ascorbic Acid* (Vitamin C* Liq) 500 Mg/5 Ml Syrup, 500 MG GTB DAILY, ML 08/23/16 Acetaminophen* (Tylenol*) 325 Mg Tablet, 650 MG GTB Q4H Y for MILD PAIN LEVEL 1- 3, TAB FOR FEVER AND TRACH TUBE CHANGE 08/23/16 Tramadol Hcl* (Ultram*) 50 Mg Tablet, 50 MG GTB BID, TAB 08/23/16 Chlorhexidine Gluconate (Paroex) 473 Ml Mouthwash, 473 ML MM Q12, BOTTLE 08/23/16 Dextran/Hypromellose/Glycerin (Artificial Tears Drops) 15 Ml Drops, 2 DROP BOTH EYES BID, EA 08/23/16 Amiodarone Hcl* (Amiodarone Hcl*) 200 Mg Tablet, 200 MG GTB DAILY, #30 TAB HOLD IF AP BELOW 60 08/23/16 Albuterol Sulfate* (Albuterol Sulfate* Neb) 0.083%-3 Ml Neb, 2.5 MG NEB Q3H Y for WHEEZING AND SOB, #30 VIAL Q6H FOR SOB/WHEEZING WITH ATROVENT 08/23/16 Discontinued Reported Medications Calcium Carbonate-Vitamin D3 (Calcium 500 + D Tablet) 1 Each Tablet, 1 TAB GTB DAILY, TAB 10/29/16 Cholecalciferol* (Vitamin D3*) 1,000 Unit Tablet, 1000 UNIT GTB DAILY, TAB 08/23/16 Allergies Allergies: Coded Allergies: No Known Allergy (Unverified , 12/06/16) PMhx/Soc Recent history of sepsis, anemia, gastrointestinal bleeding, right kidney mass, bifrontal and temporal encephalomalacia, bedbound state, dysphagia with PEG tube placement, recurrent UTIs, diabetes mellitus, hypertension, kidney injury, multiple sacral decubitus ulcerations, respiratory failure necessitating mechanical ventilator via tracheostomy History of Surgery: Yes (peg placement;trachyostomy;) Anesthesia Reaction: No Hx Respiratory Disorders: Yes (cronic respiratory failure(trach-vent);pneumonia ;) Hx Cardiac Disorders: Yes (a-fib;htn;) Hx Psychiatric Problems: No Hx Miscellaneous Medical Probl: Yes (anemia;) Hx Alcohol Use: No Hx Tobacco Use: No Smoking Status: Unknown if ever smoked FmHx Family History: No diabetes Physical Exam Vitals Vital Signs Date Time Temp Pulse Resp B/P Pulse Ox O2 Delivery O2 Flow Rate FiO2 12/06/16 16:11 84 16 92/50 99 Room Air 12/06/16 14:41 99.0 85 16 83/52 100 12/06/16 14:40 19 99 70 Physical Exam GENERAL: Elderly, chronically debilitated man, unresponsive, afebrile HEENT: Tracheostomy in place connected to mechanical ventilator, pale conjunctiva, no cervical spine deformity, dry mucous membranes NEURO: Eyes closed, nonverbal, unresponsive, diffuse muscular wasting and contractures of the extremities CARDIAC: Regular rate and rhythm, no murmurs rubs or gallops LUNGS: Bibasilar crackles, no wheezing or stridor ABDOMEN: Soft nontender, gastrostomy tube in place, no guarding, no rigidity, no rebound, no psoas sign no obturator sign. SKIN: Warm and dry to touch, multiple decubitus ulcerations, no lacerations or active bleeding EXTREMITIES: No clubbing cyanosis or edema, calves are bilaterally symmetrical, no Homans sign, no popliteal cord sign. PSYCH: Unable to assess Result Diagram: 12/06/16 1500 12/06/16 1500 Results 24 hrs Laboratory Tests Test 12/06/16 15:00 12/06/16 16:00 White Blood Count 13.410^3/ul Red Blood Count 2.1710^6/ul Hemoglobin 6.4g/dl Hematocrit 24.7% Mean Corpuscular Volume 113.8fl Mean Corpuscular Hemoglobin 29.5pg Mean Corpuscular Hemoglobin Concent 25.9g/dl Red Cell Distribution Width 17.2% Platelet Count 28576^3/UL Mean Platelet Volume 13.5fl Neutrophils % % Eosinophils % % Neutrophils # 10^3/ul Eosinophils # 10^3/ul Prothrombin Time 16.1Sec Prothrombin Time Ratio 1.3 INR International Normalized Ratio 1.28 Sodium Level 177mmol/L Potassium Level 4.9mmol/L Chloride Level 135mmol/L Carbon Dioxide Level 28mmol/L Anion Gap 19 Blood Urea Nitrogen > 240mg/dl Creatinine 4.65mg/dl Glucose Level 218mg/dl Calcium Level 10.9mg/dl Total Bilirubin 0.0mg/dl Direct Bilirubin 0.00mg/dl Indirect Bilirubin 0.0mg/dl Aspartate Amino Transf (AST/SGOT) 14IU/L Alanine Aminotransferase (ALT/SGPT) 20IU/L Alkaline Phosphatase 100IU/L Troponin I 0.021ng/ml Total Protein 7.5g/dl Albumin 3.2g/dl Globulin 4.30g/dl Albumin/Globulin Ratio 0.74 Lipase 54U/L Urine Color LT. YELLOW Urine Clarity CLOUDY Urine pH 8.0 Urine Specific [place] 1.015 Urine Ketones NEGATIVE Urine Nitrite NEGATIVE Urine Bilirubin NEGATIVE Urine Urobilinogen 0.2 E.U./dL Urine Leukocyte Esterase 3+ Urine Microscopic RBC 5-10/HPF Urine Microscopic WBC >200/HPF Urine Transitional Epithelial Cells FEW Urine Bacteria MANY Urine Hemoglobin 3+ Urine Glucose NEGATIVE% Urine Total Protein 2+ Current Medications Medications (Trade) Dose Ordered Sig/Cici Route PRN Reason Start Time Stop Time Status Last Admin Dose Admin Sodium Chloride 1,000 ml @ 1,000 mls/hr Q1H STAT IV 12/06/16 14:45 12/06/16 15:44 DC 12/06/16 15:56 Sodium Chloride 1,000 ml @ 1,000 mls/hr Q1H ONCE IV 12/06/16 15:00 12/06/16 15:59 DC 12/06/16 17:16 Calcium Gluconate 1 gm/Sodium Chloride 110 ml @ 110 mls/hr ONCE ONCE IVPB 12/06/16 15:30 12/06/16 16:29 DC 12/06/16 15:54 Cefepime HCl 50 ml @ 100 mls/hr ONCE ONCE IVPB 12/06/16 19:00 12/06/16 19:29 12/06/16 17:04 Vancomycin HCl 250 ml @ 125 mls/hr ONCE IVPB 12/06/16 17:00 12/06/16 18:59 Sodium Chloride 1,000 ml @ 1,000 mls/hr 1730 ONCE IV 12/06/16 17:30 12/06/16 17:31 UNV Sodium Chloride (NS) 1,000 ml @ 1,000 mls/hr Q1H ONCE IV 12/06/16 17:30 12/06/16 18:29 Procedures/MDM An IV line was established patient was placed on client manager large law rhythm strip revealed a sinus rhythm at about 80 bpm with upright P and T waves. Patient was afebrile, patient's blood pressure was normal, and he was not tachycardic. Nothing to suspect sepsis. Patient's Lopez catheter was replaced and he was connected to the mechanical ventilator with his original settings. I administered 2 L normal saline intravenously for severe dehydration, for suspected hyperkalemia patient was also given calcium gluconate 1 g IV. One view chest x-ray performed, read by me revealed a right lower lobe infiltrate, no pneumothorax, no end of the diaphragm. I administered cefepime 1 g IV and vancomycin 1 g IV. CBC was significant for leukocytosis at 13 and severe anemia with hematocrit of 25, electrolytes were all abnormal revealing hypernatremia and acute kidney injury with a BUN/creatinine of 240/4.7, liver function tests were unremarkable , troponin was negative. Urine analysis was positive for infection with 3+ leukocytes. EKG performed, read by me: 84 bpm, normal sinus rhythm, normal axis, no acute ST segment changes, narrow QRS complex, with good R-wave progression in precordial leads. Critical Care: Time: 40 minutes, this was time separate from other procedures. Treatments/Evaluations: Close monitoring and treatment of unstable vital signs, cardiorespiratory, and neurologic status, while maintaining tight balance of fluid, respiratory, and cardiac interventions. Over the last 3 hours patient has made about 50 cc urine per hour, although for severe hypernatremia I ordered 2 L of 1/2 normal saline boluses. Patient will be admitted to telemetry setting for continued medical management and IV antibiotics. Patient will also require nephrology consultation, although this was deferred to inpatient managing team. Departure Diagnosis: Primary Impression: Respiratory failure Qualified Code: J96.21 - Acute on chronic respiratory failure with hypoxia and hypercapnia Additional Impressions: Anemia Qualified Code: D64.9 - Anemia, unspecified type Gastrointestinal bleeding, upper Acute kidney injury Pneumonia Qualified Code: J18.1 - Pneumonia of right lower lobe due to infectious organism Urinary tract infection Qualified Code: N30.00 - Acute cystitis without hematuria Decubitus skin ulcer Qualified Code: L89.159 - Decubitus ulcer of sacral region, unspecified ulcer stage Hypernatremia Condition: Serious LIBRADO CHIN MD Dec 06, 2016 17:31
[2016-12-06] MEDS ORDERED: SOD CHLORIDE 0.45% 1,000 ML IV SCH ×3 (17:40→18:00)
[2016-12-06] MEDS ORDERED: morphine 2 MG INJ IV PRN (18:00)
[2016-12-06] MEDS ORDERED: ONDANSETRON 4 MG INJ IV PRN (18:00)
[2016-12-06] MEDS ORDERED: NACL 0.9% 3 ML SYG IV SCH (18:00)
[2016-12-06 18:20] LABS: BASOPHIL # 0.1 10^3/ul (0.0-0.1); EOSINOPHILS # 0.8 10^3/ul (0.0-0.5); LYMPHOCYTES # 0.4 10^3/ul (0.8-2.9); MONOCYTE # 0.8 10^3/ul (0.3-0.9); MYELOCYTES # 0.1; NEUTROPHIL # 10.2 10^3/ul (1.6-7.5)
[2016-12-06] MEDS ORDERED: VANCOMYCIN IV PER PHARMACY XX SCH (18:30)
[2016-12-06] MEDS: INSULIN ASPART [NOVOLOG] 3 ML PEN SC SCH ×2 (18:30→22:30)
[2016-12-06] MEDS ORDERED: HYPOGLYCEMIA PROTOCOL when Glucose is <70 mg/dL or symptomatic <90 mg/dL. XX ONE (18:30)
[2016-12-06] MEDS ORDERED: Discontinue Glyburide, Glipizide, and/or Glimepiride prior to starting Insulin XX ONE (18:30)
[2016-12-06] MEDS ORDERED: DEXTROSE 50% 50 ML SYRINGE IV PRN ×2 (19:00)
[2016-12-06] MEDS ORDERED: GLUCAGON 1 MG INJ IM PRN (19:00)
[2016-12-06] MEDS ORDERED: CEFEPIME 1GM/50 ML (PMX) 50 ML IVPB ONE (19:00)
[2016-12-06] MEDS ORDERED: GLUCOSE GEL 15 GRAM TUBE BUCCAL PRN (19:00)
[2016-12-06] MEDS ORDERED: GLUCOSE GEL 15 GRAM TUBE PO PRN ×2 (19:00)
[2016-12-06] MEDS: PANTOPRAZOLE 40 MG INJ IV SCH (19:21)
[2016-12-06] MEDS: SOD CHLORIDE 0.45% 1,000 ML IV SCH (19:42)
[2016-12-06] MEDS: INSULIN GLARGINE [LANtus] 3 ML PEN SC SCH (20:00)
[2016-12-06] MEDS ORDERED: CEFEPIME 1GM/50 ML (PMX) 50 ML IVPB SCH (20:00)
[2016-12-06] MEDS ORDERED: ALBUTEROL 0.083% (NEB) 2.5 MG/3 ML AMP HHN SCH (20:00)
--- NOTE | 2016-12-06 20:01 | HP ---
DATE OF ADMISSION: 12/06/2016 TIME OF EVALUATION: 1800 hours. REASON FOR ADMISSION: Transferred from a care home facility because of abnormal lab findings. CONSULTATIONS: 1. Dr. Kyle Kelly, Nephrology. 2. Pulmonology. 3. Dr. Oswald Tanner, Infectious Disease. HISTORY OF PRESENT ILLNESS: This is a 71-year-old male patient who has chronic encephalopathy and bedridden with a tracheostomy connected to ventilator and also history of gastric ulcers, distal esophagitis, type 2 diabetes mellitus, chronic kidney disease, dysphagia, and cardiac arrhythmias; who was brought in from [facility] because he was found to have elevated BUN and creatinine, as well as hyperkalemia at the facility. The patient was given a single dose of Kayexalate prior to transfer to the emergency room. As per the ER report, he was recently diagnosed with sepsis and was treated with imipenem and Zosyn IV. The patient has chronic encephalopathy and is nonverbal. The details were obtained by reviewing the patient's old medical records and by reviewing the records at the ER. In the emergency room, the patient was noticed to have a significant anemia with a hemoglobin and hematocrit of 6.4 and 24.7 respectively. The patient's platelet count was within normal limits. The patient was noticed to have hypernatremia with a sodium of 177. The patient's potassium was 4.9. The patient's BUN and creatinine were 240 and 4.65 respectively. The patient's urinalysis was positive for 3+ leukocyte esterase and urine microscopic WBCs greater than 200. The patient was afebrile at the emergency room. The patient was treated with IV calcium gluconate and sodium chloride IV bolus in the emergency room. The patient was hypotensive upon presentation, with improvement in the patient's blood pressure after fluid resuscitation. PAST MEDICAL HISTORY: Ventilator-dependent respiratory failure, distal esophagitis, duodenitis, gastric ulcers, type 2 diabetes mellitus, chronic kidney disease, dysphagia, cardiac arrhythmia, pressure ulcers, right kidney mass. PAST SURGICAL HISTORY: Tracheostomy and PEG placement. [facility] MEDICATIONS:. 1. Calcium carbonate with vitamin D3 one tablet via G-tube daily. 2. Lansoprazole 30 mg via G-tube b.i.d. 3. Lantus insulin 10 units subcutaneously at bedtime. 4. Ferrous sulfate 220 mg/5 mL via G-tube daily. 5. Amiodarone 200 mg via G-tube daily. 6. Albuterol 2.5 mg nebulization q.6h p.r.n. wheezing. ALLERGIES: NO KNOWN DRUG ALLERGIES. SOCIAL HISTORY: The patient is a long term resident. He is chronically bedridden. REVIEW OF SYSTEMS: Unable to obtain review of systems because of the patient's clinical condition. OBJECTIVE DATA: VITAL SIGNS: Temperature 99.0, pulse is 78, respiratory rate 17, blood pressure 92/50, oxygen saturation 100% on 70% FIO2 via mechanical ventilator. GENERAL: This is a frail-looking elderly male patient, lying in bed with a with a tracheostomy connected to mechanical ventilator. HEENT: Head normocephalic and atraumatic. Eyes: Anicteric sclerae. Conjunctivae clear. ENT: Nasal septum is midline. Oral mucosa is dry. NECK: The patient has a tracheostomy in place. Tracheostomy in the midline. RESPIRATORY: Bilaterally diminished breath sounds. Mechanically ventilated. CARDIAC: Regular rate and rhythm. S1, S2 heard. ABDOMEN: Scaphoid. Left upper quadrant G-tube in place. GENITOURINARY: The patient has a Lopez catheter in place. EXTREMITIES: Bilateral foot dressings over wounds. Trivial pretibial edema bilaterally. Pedal pulses palpable. NEUROLOGIC: The patient is obtunded. SKIN: Multiple pressure ulcers. LABORATORY AND DIAGNOSTIC DATA: WBC 13.4, hemoglobin 6.4, hematocrit 24.7, platelet count 188, band neutrophils 7%. Sodium 177, potassium 4.9, chloride 135, carbon dioxide 28, anion gap 19, BUN greater than 240, creatinine 4.65, glucose 218, calcium 10.9, AST 14, ALT 20, alkaline phosphatase 100. PT 16.1, INR 1.28. Urinalysis: Urine nitrate negative, urine leukocyte esterase 3+, urine microscopic WBC greater than 200. Chest x-ray. Tracheostomy tube in good position. New right lower lobe pneumonia. IMPRESSION: This s an elderly male patient who is chronically bedridden and ventilator dependent, who was brought to the emergency room from a care home facility for electrolyte imbalance, who was also found to have evidence of sepsis and will be admitted here for further treatment and evaluation. ASSESSMENT AND PLAN: 1. Sepsis. Most probably secondary to underlying pneumonia and urinary tract infection. No evidence of any septic shock. The patient was started on empiric antibiotics. The patient will be provided with IV fluids. An infectious disease consult will be ordered on this patient. Patel cultures will be obtained. 2. Ahnif-cg-cxcruiq kidney injury. The patient has history of chronic kidney disease. The patient currently arrives with worsening renal function. A Nephrology consult will be obtained on this patient. Nephrotoxic drugs will be used with caution. 3. Hypernatremia. The patient will be treated with 1/2 normal saline. The patient will also provided with free water through the G-tube. Nephrology consult will be obtained. The patient's sodium will be lowered gradually. 4. Type 2 diabetes mellitus. The patient will be started on sliding scale insulin and basal insulin. Hemoglobin A1c will be obtained. 5. Macrocytic anemia. Hemoglobin and hematocrit 6.4 and 24.7 respectively. The patient recently had an esophagogastroduodenoscopy that showed evidence of gastric ulcers with distal esophagitis and duodenitis. The patient has no evidence of any active bleeding at this time. The patient will be transfused with blood products as needed. The patient will be started on proton pump inhibitors. 6. History of cardiac arrhythmia. The patient is currently in sinus rhythm. The patient is on amiodarone. This will be continued. 7. Multiple pressure ulcers. A wound care consult will be ordered. The patient will be placed on a specialty mattress. 8. Chronic encephalopathy. The patient remains to be a FULL CODE. The patient is ventilator dependent. The last time the patient was in the hospital , he was assessed with electroencephalography. We will try to contact the patient's family to address code status,provided the patient's poor clinical status and poor prognosis. Plan.The patient will be admitted to inpatient setting. The patient will be started on G-tube feedings. He will be started on Protonix IV. Chemical DVT prophylaxis will be avoided because of underlying anemia. Activities will be bed rest. The rest of the patient's management will be based on the clinical course, the results of diagnostic studies, and inputs from consultants. Based on the patient's clinical presentation, he most probably requires more than 2 midnights' stay for further management and evaluation of his clinical presentation. The case and management of this patient was fully discussed with Dr. Bush. JULIAN BUSH MD, AM/LESLY Conf#: [id number] DID#: [id number] MTDD
[2016-12-06] MEDS: ARTIFICIAL TEARS 15 ML OPH BOTH EYES SCH (21:00)
[2016-12-06] MEDS ORDERED: ARTIFICIAL TEARS 15 ML OPH BOTH EYES SCH (21:00)
[2016-12-06 21:15] VITALS: TEMP 98.4
[2016-12-06 23:53] VITALS: PULSE 80
[2016-12-07] VITALS (43 sets, daily range): BP systolic 76–109; BP diastolic 42–67; PULSE 8–88; RESP 11–33; Ht 167.6 cm; Wt 60.0 kg
[2016-12-07] MEDS: ALBUTEROL 18 GM INHALER INH SCH ×4 (02:00→19:27)
[2016-12-07] MEDS: INSULIN ASPART [NOVOLOG] 3 ML PEN SC SCH ×4 (02:29→15:33)
[2016-12-07] MEDS: SOD CHLORIDE 0.45% 1,000 ML IV SCH ×3 (02:37→18:07)
[2016-12-07] MEDS ORDERED: PENDING SANTYL ORDER FOR WOUND CARE XX PRN ×2 (04:00)
[2016-12-07] MEDS ORDERED: SOD CHLORIDE 0.9% 500 ML IV ONE (04:30)
[2016-12-07] MEDS: PANTOPRAZOLE 40 MG INJ IV SCH ×2 (05:30→17:57)
[2016-12-07 06:23] LABS: ADD SCAN DIFF NO
[2016-12-07 06:34] LABS: ABNORMAL IP MESSAGE 1; HEMATOCRIT 26.5 % (42.0-52.0); HEMOGLOBIN 7.6 g/dl (14.0-18.0); MEAN CORPUSCULAR HEMOGLOBIN 30.2 pg (29.0-33.0); MEAN CORPUSCULAR HGB CONC 28.7 g/dl (32.0-37.0); MEAN CORPUSCULAR VOLUME 105.2 fl (82.0-101.0); MEAN PLATELET VOLUME 12.8 fl (7.4-10.4); PLATELET COUNT 159 10^3/UL (140-415); RED BLOOD COUNT 2.52 10^6/ul (4.70-6.10); RED CELL DISTRIBUTION WIDTH 21.6 % (11.5-14.5); WHITE BLOOD COUNT 12.2 10^3/ul (4.8-10.8)
[2016-12-07 07:13] LABS: MAGNESIUM 3.4 mg/dl (1.7-2.5); PHOSPHORUS 4.8 mg/dl (2.5-4.9); THYROID STIMULATING HORMONE 2.18 MIU/L (0.465-4.680)
[2016-12-07 07:28] LABS: ALBUMIN 2.5 g/dl (3.3-4.9)
[2016-12-07 07:29] LABS: POTASSIUM 3.9 mmol/L (3.5-5.1)
[2016-12-07 07:31] LABS: BILIRUBIN,INDIRECT 0.2 mg/dl (0-1.1); BILIRUBIN,TOTAL 0.2 mg/dl (0.2-1.3); CREATININE 4.1 mg/dl (0.61-1.24)
[2016-12-07 07:32] LABS: ALBUMIN/GLOBULIN RATIO 0.69; CALCIUM 9.6 mg/dl (8.4-10.2); TOTAL PROTEIN 6.1 g/dl (6.1-8.1)
[2016-12-07] MEDS: AMIODARONE 200 MG TAB GTB SCH (08:15)
[2016-12-07] MEDS: ASCORBIC ACID 500 MG TAB GTB SCH (08:21)
[2016-12-07] MEDS: ZINC SULFATE 220 MG CAP GTB SCH (08:21)
[2016-12-07] MEDS: CHOLECALCIFEROL 1,000 UNIT TAB GTB SCH (08:21)
[2016-12-07] MEDS: ARTIFICIAL TEARS 15 ML OPH BOTH EYES SCH ×2 (09:00→22:03)
[2016-12-07] MEDS ORDERED: FERROUS SULFATE 220 MG/5 ML ML GTB SCH (09:00)
[2016-12-07] MEDS: FERROUS SULFATE 60 MG/ML 5ML CUP GTB SCH (09:09)
[2016-12-07] MEDS ORDERED: SOD CHLORIDE 0.9% 1,000 ML IV ONE (09:30)
--- NOTE | 2016-12-07 09:36 | CONS ---
DATE OF ADMISSION: 12/06/2016 DATE OF CONSULTATION: 12/07/2016 TYPE OF CONSULTATION: Nephrology. REASON FOR CONSULTATION: Acute kidney injury, severe hypernatremia. REQUESTING PHYSICIAN: ____ HISTORY OF PRESENT ILLNESS: This is a 71-year-old male with a past medical history of chronic kidne y disease with a baseline creatinine around 1 mg/dL, history of ventilator dependent respiratory clementine lure, history of dysphagia, status post trach, history of chronic encephalopathy, history of gastric ulcer, anemia, history of diabetes, decubitus wound, history of Clostridium difficile colitis who p resents to [facility] from a custodial facility due to abnormal labs, hyperk alemia and hypernatremia. The patient apparently found to have a markedly elevated BUN and creatini ne, as well as hyperkalemia at his facility, was given a dose of Kayexalate and transferred to the e mergency room. Upon arrival in the emergency room, the patient was noted to have significant anemia with a hemoglobin 6.4. The patient's laboratory data also showed a sodium 144, a BUN of greater th an 240 and a creatinine of 4.65. The patient in the emergency room also had pyuria with WBC greater than 200. In the emergency room, the patient was given IV fluids, IV antibiotics and admitted to critical access hospital for further evaluation. In terms of the patient's renal history, the patient had a previous creatinine of 0.92 mg/dL in . In October of this year the patient's creatinine was around 1.2 to 1.4 mg/dL. The patient was not on any YVONNE inhibitor, ARBs, or diuretic therapy per medical record. Unclear if there is was any recent antibiotic use. There have been no reports of hemoptysis, hematemesis or hematochezia. No rashes. No frothy urine. PAST MEDICAL HISTORY: As stated above, history of chronic kidney disease, history of ventilator dep endent respiratory failure, history of dysphagia, history of encephalopathy, hypernatremia, arrhythm ia, diabetes, decubitus wound, C. diff. PAST SURGICAL HISTORY: Status post trach and PEG. ALLERGIES: Have been reviewed. MEDICATIONS: List has been reviewed. FAMILY HISTORY: Noncontributory. SOCIAL HISTORY: Lives in a skilled nurse facility. REVIEW OF SYSTEMS: Unable to do adequate review of systems. The patient is obtunded. Pertinent po sitives obtained by reviewing medical records, speaking to hospital staff, stated in HPI, otherwise negative. PHYSICAL EXAMINATION: VITAL SIGNS: Blood pressure is 90/60, respirations 18, pulse 88, temperature 98.7. HEENT: Head is normocephalic. NECK: Supple, with a trach. HEART: Regular rate. LUNGS: Show diminished breath sounds at base. ABDOMEN: Soft, nontender to palpation. Positive PEG. EXTREMITIES: Negative for clubbing, cyanosis. Positive for wound. DERMATOLOGIC: No rashes. MUSCULOSKELETAL: Positive decubitus wound. NEUROLOGIC: The patient is obtunded. LABORATORY DATA: Shows white count 12.2, hemoglobin 7.6, hematocrit 26.5, platelet count 159, sodiu m 178, potassium 2.9, chloride 136, bicarbonate 24, BUN 228, creatinine 4.10, magnesium 3.4. IMAGING STUDIES: As stated in HPI. ASSESSMENT AND PLAN: This is a 71-year-old male who presents with: 1. Nonoliguric acute kidney injury with a previous baseline creatinine around 1 to 1.4 mg/dL. Etio logy of acute kidney injury is secondary to prerenal volume depletion with possible tubular injury. The patient's initial urinalysis does show pyuria and greater than 200 WBCs, RBCs 5 to 10, and +2 p roteinuria. The possibility of acute glomerulonephritis or vasculitis is less likely given the maria luz ent's initial presentation. Plan at this point would be to check a stat renal ultrasound to rule ou t obstruction. Will repeat urinalysis as the patient was introduced on antibiotic therapy to see if pyuria improves. We will calculate a FENa, fractional excretion of urea. We will continue normal saline until the patient is euvolemic. Will monitor serial renal panels. If the patient's renal fu nction does not continue to significantly improve over the next 24 to 48 hours, would consider start ing renal replacement therapy. Would otherwise continue supportive care, renally dose all meds, rafy id nephrotoxins. 2. Severe hypernatremia with a free water deficit of approximately 7 liters. Etiology is presumed to be secondary to insensible losses. The possibility of diabetes insipidus is a consideration. Ad ditionally, the patient has likely had ongoing free water loss with osmotic diuresis due to signific ant azotemia. Plan at this point is to check a urine sodium, urine osmolarity. Will continue hyp__ __tonic fluids once the patient is volume replete. We will increase free water flushes to 400 mL q. 4 hours and start the patient on half NS at 150 mL an hour. We will monitor serial sodium levels cl osely to ensure correction of no more than 10 to 12 mEq in a 24-hour period. 3. Mineral bone disorder. Monitor calcium and phosphorus levels. 4. Hypermagnesemia secondary to acute kidney injury. Continue to monitor magnesium levels. 5. Anemia, possibly of chronic disease. Continue to monitor H and H levels. Iron workup is ongoin g. Would consider blood transfusion if hemoglobin levels fall below 7 mg/dL. Will give Epogen as n eeded. 6. Hypertension. Etiology is possibly due to volume depletion, sepsis. Continue broad spectrum an tibiotics. Continue IV hydration. Will give an additional bolus of 1 liter normal saline. Monitor hemodynamics closely. 7. Sepsis secondary to urinary tract infection, and underlying pneumonia. As stated above, will co ntinue current antibiotic therapy, continue IV fluids. 8. Diabetes. Continue current insulin regimen. 9. History of arrhythmia. Patient is on amiodarone. Continue to monitor. 10. Decubitus wound, pressure ulcers. Continue wound care. 11. Chronic encephalopathy. Continue to monitor. No change. 12. Ventilator dependent respiratory failure. Vent settings have been reviewed. Continue to monit or. Follow up with pulmonary. 13. ____ tube feeding. Thank you, ____, for this interesting consult. It will be a pleasure to follow the patient with you throughout the hospital course. Dictated By: JACOB GOMEZ/LESLY Conf#: [id number] DID#: [id number]
[2016-12-07 10:18] LABS: EOSINOPHILS # 0.6 10^3/ul (0.0-0.5); LYMPHOCYTES # 0.4 10^3/ul (0.8-2.9); MONOCYTE # 0.4 10^3/ul (0.3-0.9); MYELOCYTES # 0.1; NEUTROPHIL # 9.9 10^3/ul (1.6-7.5)
[2016-12-07] MEDS ORDERED: COLLAGENASE 30 GM TUBE TOP PRN (11:00)
[2016-12-07 11:03] LABS: IRON 54 ug/dl (35-150)
[2016-12-07 11:12] LABS: TOTAL IRON BINDING CAPACITY 162 ug/dl (241-421)
[2016-12-07 11:14] LABS: ADD UMIC YES; URINE BILIRUBIN (Dip) NEGATIVE (NEGATIVE); URINE BLOOD (Dip) 3+ (NEGATIVE); URINE COLOR LT. YELLOW (YELLOW); URINE GLUCOSE (Dip) NEGATIVE (NEGATIVE); URINE KETONES (Dip) NEGATIVE (NEGATIVE); URINE LEUKOCYTE ESTERASE (Dip) 3+ (NEGATIVE); URINE NITRITE (Dip) NEGATIVE (NEGATIVE); URINE TOTAL PROTEIN (Dip) 2+ (NEGATIVE); URINE UROBILINOGEN (Dip) 0.2 E.U./dL (0.1-1.0)
[2016-12-07 11:26] LABS: BACTERIA,URINE FEW
[2016-12-07 13:00] LABS: ADD SCAN DIFF NO
[2016-12-07 13:09] LABS: ABNORMAL IP MESSAGE 1; EOSINOPHILS # 0.8 10^3/ul (0.0-0.5); HEMATOCRIT 23.9 % (42.0-52.0); LYMPHOCYTES # 0.4 10^3/ul (0.8-2.9); LYMPHOCYTES % 3.9 % (15.0-51.0); MEAN CORPUSCULAR HEMOGLOBIN 29.7 pg (29.0-33.0); MEAN CORPUSCULAR HGB CONC 28.5 g/dl (32.0-37.0); MEAN CORPUSCULAR VOLUME 104.4 fl (82.0-101.0); MEAN PLATELET VOLUME 13.3 fl (7.4-10.4); MONOCYTE # 0.4 10^3/ul (0.3-0.9); MONOCYTES % 4.1 % (0.0-11.0); NEUTROPHIL # 8.9 10^3/ul (1.6-7.5); NEUTROPHILS % 83.3 % (39.0-77.0); PLATELET COUNT 143 10^3/UL (140-415); RED BLOOD COUNT 2.29 10^6/ul (4.70-6.10); RED CELL DISTRIBUTION WIDTH 21.5 % (11.5-14.5); WHITE BLOOD COUNT 10.7 10^3/ul (4.8-10.8)
--- NOTE | 2016-12-07 13:09 | CONS ---
DATE OF ADMISSION: 12/06/2016 DATE OF CONSULTATION: 12/07/2016 INFECTIOUS DISEASE CONSULTATION REASON FOR CONSULTATION: Antibiotic management. HISTORY OF PRESENT ILLNESS: Patricio Robles is a 71-year-old male who was transferred from a intermediate facility with abnormal labs and is being seen for antibiotic management. PAST PROBLEMS INCLUDE: 1. Chronic encephalopathy. 2. Ventilator dependent respiratory failure. 3. Distal esophagitis. 4. Duodenitis. 5. Gastric ulcers. 6. Adult-onset diabetes mellitus. 7. Chronic renal disease. 8. Dysphagia. 9. Cardiac arrhythmia. 10. Pressure ulcers. 1. Right kidney mass. 12. Status post G-tube placement. Acutely, the patient is brought into the emergency room with increased BUN and creatinine and hyperk alemia. He was given Kayexalate in the emergency room, was diagnosed with sepsis and was started on imipenem and Zosyn. The patient is nonverbal. He has significant anemia. Hemoglobin and hematocr it were 6.4 and 24.7 respectively. His sodium was 177, potassium 4.9. BUN and creatinine was 240 a nd 4.65. Urinalysis showed 3+ leukocyte esterase and greater than 200 white cells per high-power fi eld. He was hypotensive upon presentation with improvement in the patient's blood pressure after fl uid resuscitation. His white count on admission was 13.4, H and H 6.4 and 24.7, platelet count 188, 000 with 7% neutrophils. BUN and creatinine as noted previously. Chest x-ray showed tracheostomy i n good position with a new right lower lobe pneumonia. PAST MEDICAL HISTORY: Operations as outlined. FAMILY HISTORY: Noncontributory. SOCIAL HISTORY: He lives in a fpc. He is chronically bedridden. He does not presently sm sandoval, drink or abuse drugs. ALLERGIES: NONE TO PENICILLIN, SULFA OR FOODS. MEDICATIONS: Per chart. REVIEW OF SYSTEMS: As per HPI. PHYSICAL EXAMINATION: GENERAL: The patient is a frail appearing male lying in bed on ventilator support. VITAL SIGNS: Stable. He is afebrile. SKIN: Without generalized rash. HEENT: Within normal limits. NECK: Supple. Tracheostomy in place without exudate. LYMPH NODES: None palpable. CHEST: Decreased breath sounds at the bases. HEART: Without murmur or gallop. ABDOMEN: Soft, flat. Has a G-tube in the left upper quadrant. EXTREMITIES: Without cyanosis, clubbing, or edema. He has bilateral foot dressings over wounds. RECTAL AND GENITAL: Deferred. Lopez catheter is in place. NEUROLOGIC: The patient is obtunded on a respirator. Skin has multiple pressure sores. No erythem a or icterus. IMPRESSION AND PLAN: The patient comes in now with ventilator dependent respiratory failure in a [facility]. Seems to have sepsis secondary to new pneumonia as well as urinary tract in fection. There is no evidence of septic shock at this time. He was pancultured and he was started on antibiotic therapy. He is now on cefepime and vancomycin. He was seen also in consultation by Regina Kelly, who felt he had nonoliguric acute kidney injury, probably secondary to prerenal volume d epletion with possible tubular injury. We will continue him on vancomycin and cefepime. Await cult ure results. I will dictate my findings to the hospitalist and Dr. Kelly. Dictated By: BETHANY MCKENNA MD, JD/ELSLY Conf#: [id number] DID#: [id number]
[2016-12-07 13:15] LABS: CALCIUM 9.2 mg/dl (8.4-10.2); CREATININE 3.81 mg/dl (0.61-1.24); POTASSIUM 3.6 mmol/L (3.5-5.1)
[2016-12-07 13:21] LABS: HEMOGLOBIN 6.8 g/dl (14.0-18.0)
--- NOTE | 2016-12-07 13:24 | CONS ---
Date/Time of Note Date/Time of Note DATE: 12/07/16 TIME: 12:48 Assessment/Plan Assessment/Plan Chief Complaint/Hosp Course ID PROGRESS NOTE TOTAL ABX DAY #2 =>Vanco IV + Cefepime CASE REVIEWED 71 yo M w/MMP chronic debility/VDRF w/Trach & Peg, known to Dr. Tanner's ID team consultants readmitted 12/06/16 with acute renal failure, sepsis due to UTI /HCAP. * 12/06/16 CXR: IMPRESSION:1. tracheostomy tube in good position. 2. New right lower lobe pneumonia. 3. Atherosclerotic aortic calcification * 12/06/16 UA: (+) Pyuria w/3+ Leuk Esterase, > 200 WBCs, RBCs 5 to 10, and +2 proteinuria. * Tmax 99.0 w/WBC 13.4 on admission, down today, recurrent anemia * INFECTIOUS DISEASE HISTORY: (+)MRSA BCx 10/30/16; (+)PSAR UTI = MDR sensitive to Amikacin & Primaxin, intermediate to Cefepime/Fortaz * Hx of ABD wall cellulitis and multiple infected decubs 24H INTERVAL SUMMARY * Non-communicative,Frail, thin, chronic debilitated 71 yo M, Vented, somnolent 12/07/16 0600 12/07/16 0600 PHYSICAL EXAMINATION: GENERAL: 71 yo M w/chronic encephalopathy, VDRF HEENT: Head DSG, NGT secure NECK: Trached-> Vented CHEST: Rise symmetrical= Vented HEART: RRR ABDOMEN: Soft, peg, abd wall healing = Colostomy bag EXTREMITIES: Warm SKIN: Decubs, unstageable ID ASSESSMENT: 71 yo M w/chronic debility 2/2 multiple medical problems re-admitted with: 1. SIRS w/low grade temperatures, leukocytosis -> due to #2 #3 2. HCAP => Aspiration PNA w/new right sided pulmonary infiltrate on CXR * Repeat respiratory cx pending * AUG 2016 RESP CX: Polymicrobial (+)MRSA/(+)Proteus Mirabilis/(+) ACHROMOBACTER SPECIES 3. Complicated UTI w/Pyuria on UA =12/06/16 UA: (+) Pyuria w/3+ Leuk Esterase, > 200 WBCs, RBCs 5 to 10, and +2 proteinuria. * S/P 10/30/16 PSAR MDRO UTI sensitive to Amikacin & Primaxin 4. 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 Acute renal failure/CKD * Right kidney mass of unknown significance 6. GERD w/ prior EDG (+)distal esophagitis, duodenitis, gastric ulcers, dysphagia 7. Hx of cardiac arrhythmia 8. Hx of unstageable sacral wound * Prior wound Cx grew: MRSA, VRE, KP, GNR Proteus 9. Hx of ABD wall cellulitis prior admission due to GT leak 7. Hx of empiric Rx for scabies rash prior admission 8. Hx of MRSA PICC Line sepsis 10/30/16 INVASIVES: * PIV, Trach, PEG, FC CURRENT ABX: TOTAL ABX DAY #2 =>Vanco IV + Cefepime PRIOR ADMISSION: Zyvox, Levaquin, Cefepime ID RECOMMENDATIONS: 1. Patient has hx of VRE wounds & MDRO PSAR that was sensitive to Primaxin; NOW with VERITO. 2. DC Vanco IV & Cefepime 3. Start Zyvox and Primaxin for improved MDRO ABX coverage that is also renal safe. 4. Avoid renal toxic meds . Problems: Consultation Date/Type/Reason Admit Date/Time Dec 06, 2016 at 17:18 Initial Consult Date Type of Consultation: ID Exam/Review of Systems Vital Signs Vitals Vital Signs Date Time Temp Pulse Resp B/P Pulse Ox O2 Delivery O2 Flow Rate FiO2 12/07/16 12:25 97.8 78 20 92/57 94 12/07/16 11:00 60 12/07/16 00:00 Mechanical Ventilator Intake and Output 12/06/16 12/06/16 12/07/16 15:00 23:00 07:00 Intake Total 2900 ml 1800 ml Output Total 1200 ml Balance 2900 ml 600 ml Results Result Diagram: 12/07/16 0600 12/07/16 0600 Results 24 hrs Laboratory Tests Test 12/06/16 15:00 12/06/16 16:00 12/06/16 18:45 12/06/16 21:49 White Blood Count 13.4 #H Red Blood Count 2.17 L Hemoglobin 6.4 #*L Hematocrit 24.7 L Mean Corpuscular Volume 113.8 H Mean Corpuscular Hemoglobin 29.5 Mean Corpuscular Hemoglobin Concent 25.9 L Red Cell Distribution Width 17.2 H Platelet Count 188 # Mean Platelet Volume 13.5 #H Neutrophils % 76.0 Band Neutrophils % 7.0 H Lymphocytes % 3.0 L Monocytes % 6.0 Eosinophils % 6.0 Basophils % 1.0 Myelocytes % 1.0 H Neutrophils # 10.2 H Lymphocytes # 0.4 L Monocytes # 0.8 Eosinophils # 0.8 H Basophils # 0.1 Myelocytes # 0.1 Prothrombin Time 16.1 H Prothrombin Time Ratio 1.3 INR International Normalized Ratio 1.28 Sodium Level 177 *H Potassium Level 4.9 Chloride Level 135 H Carbon Dioxide Level 28 Anion Gap 19 H Blood Urea Nitrogen > 240 H Creatinine 4.65 H Glucose Level 218 Calcium Level 10.9 H Total Bilirubin 0.0 L Direct Bilirubin 0.00 Indirect Bilirubin 0.0 Aspartate Amino Transf (AST/SGOT) 14 L Alanine Aminotransferase (ALT/SGPT) 20 Alkaline Phosphatase 100 Troponin I 0.021 Total Protein 7.5 Albumin 3.2 L Globulin 4.30 H Albumin/Globulin Ratio 0.74 Lipase 54 Urine Color LT. YELLOW Urine Clarity CLOUDY H Urine pH 8.0 Urine Specific [place] 1.015 Urine Ketones NEGATIVE Urine Nitrite NEGATIVE Urine Bilirubin NEGATIVE Urine Urobilinogen 0.2 E.U./dL Urine Leukocyte Esterase 3+ H Urine Microscopic RBC 5-10 Urine Microscopic WBC >200 Urine Transitional Epithelial Cells FEW Urine Bacteria MANY Urine Hemoglobin 3+ H Urine Glucose NEGATIVE Urine Total Protein 2+ H Lactic Acid Level 1.8 Bedside Glucose 157 Test 12/06/16 22:35 12/07/16 02:26 12/07/16 05:26 12/07/16 06:00 Bedside Glucose 159 146 134 White Blood Count 12.2 H Red Blood Count 2.52 L Hemoglobin 7.6 L Hematocrit 26.5 L Mean Corpuscular Volume 105.2 H Mean Corpuscular Hemoglobin 30.2 Mean Corpuscular Hemoglobin Concent 28.7 L Red Cell Distribution Width 21.6 #H Platelet Count 159 Mean Platelet Volume 12.8 H Neutrophils % 81.0 H Band Neutrophils % 7.0 H Lymphocytes % 3.0 L Monocytes % 3.0 Eosinophils % 5.0 Myelocytes % 1.0 H Neutrophils # 9.9 H Lymphocytes # 0.4 L Monocytes # 0.4 Eosinophils # 0.6 H Myelocytes # 0.1 Macrocytosis 1+ Sodium Level 178 *H Potassium Level 3.9 Chloride Level 136 H Carbon Dioxide Level 24 Anion Gap 22 H Blood Urea Nitrogen 228 H Creatinine 4.10 H Glucose Level 125 # Hemoglobin A1c Osmolality 441 H Lactic Acid Level 1.7 Calcium Level 9.6 Phosphorus Level 4.8 Magnesium Level 3.4 H Iron Level 54 Total Iron Binding Capacity 162 L Percent Iron Saturation 33 Ferritin 4770.0 H Total Bilirubin 0.2 Direct Bilirubin 0.00 Indirect Bilirubin 0.2 Aspartate Amino Transf (AST/SGOT) 13 L Alanine Aminotransferase (ALT/SGPT) 14 Alkaline Phosphatase 79 Total Protein 6.1 # Albumin 2.5 L Globulin 3.60 H Albumin/Globulin Ratio 0.69 Triglycerides Level 334 H Cholesterol Level 70 L LDL Cholesterol, Calculated HDL Cholesterol 7 L Cholesterol/HDL Ratio 10.0 Vitamin D 1,25-Dihydroxy 26.8 L Thyroid Stimulating Hormone (TSH) 2.180 Free Thyroxine 1.37 Test 12/07/16 10:05 12/07/16 10:34 Urine Color LT. YELLOW Urine Clarity CLOUDY H Urine pH 7.0 Urine Specific [place] <=1.005 L Urine Ketones NEGATIVE Urine Nitrite NEGATIVE Urine Bilirubin NEGATIVE Urine Urobilinogen 0.2 E.U./dL Urine Leukocyte Esterase 3+ H Urine Microscopic RBC 10-25 Urine Microscopic WBC >50 Urine Bacteria FEW Urine Hemoglobin 3+ H Urine Osmolality 477 Urine Random Creatinine 18.97 L Urine Random Sodium 56 Urine Glucose NEGATIVE Urine Total Protein 101.0 H Bedside Glucose 130 Medications Medications Current Medications Sodium Chloride (1/2 NS) 1,000 ml @ 150 mls/hr Q6H40M IV Last administered on 12/07/16 02:37; Admin Dose 100 MLS/HR; Start 12/06/16 at 17:46 Ondansetron HCl (Zofran Inj) 4 mg Q6H PRN IV NAUSEA AND/OR VOMITING; Start at 18:00 Morphine Sulfate (morphine) 2 mg Q4H PRN IV PAIN LEVEL 7-10; Start 12/06/16 at 18:00 Pantoprazole (Protonix Iv) 40 mg BID@06,18 IV Last administered on 12/07/16 05 :30; Admin Dose 40 MG; Start 12/06/16 at 18:00 Amiodarone HCl (Cordarone) 200 mg DAILY GTB ; Start 12/07/16 at 09:00 Ascorbic Acid (Vitamin C) 500 mg DAILY GTB Last administered on 12/07/16 08:21 ; Admin Dose 500 MG; Start 12/07/16 at 09:00 Cholecalciferol (Vitamin D) 1,000 unit DAILY GTB Last administered on 08:21; Admin Dose 1,000 UNIT; Start 12/07/16 at 09:00 Eye Lubricant (Artificial Tears Oph) 2 drop BID BOTH EYES ; Start 12/06/16 at 21 :00 Zinc Sulfate (Zinc Sulfate) 220 mg DAILY GTB Last administered on 12/07/16 08: 21; Admin Dose 220 MG; Start 12/07/16 at 09:00 Insulin Aspart (Novolog Insulin Pen) NOVOLOG *MILD* ALGORITHM Q4H SC ; Start at 18:30 Insulin Glargine (Lantus) 6 unit DAILY@20 SC ; Start 12/06/16 at 20:00 Miscellaneous Information 1 ea NOTE XX ; Start 12/06/16 at 19:00 Glucose (Glutose) 15 gm Q15M PRN PO DECREASED GLUCOSE; Start 12/06/16 at 19:00 Glucose (Glutose) 22.5 gm Q15M PRN PO DECREASED GLUCOSE; Start 12/06/16 at 19: 00 Dextrose (D50w Syringe) 25 ml Q15M PRN IV DECREASED GLUCOSE; Start 12/06/16 at 19:00 Dextrose (D50w Syringe) 50 ml Q15M PRN IV DECREASED GLUCOSE; Start 12/06/16 at 19:00 Glucagon (Glucagen) 1 mg Q15M PRN IM DECREASED GLUCOSE; Start 12/06/16 at 19:00 Glucose 15 gm 15 gm Q15M PRN BUCCAL DECREASED GLUCOSE; Start 12/06/16 at 19:00 Cefepime HCl (Maxipime 1gm/50 ml (Pmx)) 50 ml @ 100 mls/hr Q24H IVPB ; Start at 17:00 Ferrous Sulfate (Feosol Liquid Cup) 300 mg DAILY GTB Last administered on 09:09; Admin Dose 300 MG; Start 12/07/16 at 09:00 Collagenase (Santyl) 1 applic DAILY TOP ; Start 12/07/16 at 11:30 Collagenase (Santyl) 1 applic PRN PRN TOP WOUND CARE; Start 12/07/16 at 11:00 ERIC LIN NP Dec 07, 2016 13:07
[2016-12-07] MEDS: LINEZOLID 600 MG/D5W (PMX) 300 ML IVPB SCH ×2 (13:30→22:37)
--- NOTE | 2016-12-07 14:08 | CONS ---
Date/Time of Note Date/Time of Note DATE: 12/07/16 TIME: 13:57 Assessment/Plan Assessment/Plan Additional Assessment/Plan Assessment * Severe recurrent anemia * Ventilator-dependent respiratory failure * Distal esophagitis, duodenitis, gastric ulcers * Diabetes mellitus * Chronic kidney disease * Cardiac arrhythmia * Decubitus pressure ulcers * Right kidney mass. Plan * Continue present regimen * PPI therapy * EGD evaluation Friday or Friday pending schedule availability Consultation Date/Type/Reason Admit Date/Time Dec 06, 2016 at 17:18 Hx of Present Illness 71-year-old male ventilator dependent post trach and PEG. Previously evaluated for severe anemia EGD 10/30/2016 Distal esophagitis, moderate. Healed fundal gastric ulceration with previously-placed clips in the fundus of the stomach. Shallow gastric ulceration adjacent to the gastrostomy tube. Thickened mucosa at the gastrostomy tube site with stigmata of recent bleeding, but no treatable lesion present. Nodular duodenitis. Biopsies obtained. Readmitted and found to have severe anemia. There is no evidence of overt gastrointestinal bleeding however gastrointestinal bleeding given his background remains the most likely explanation to his anemia which may indeed be multifactorial. The patient has been transfused and plans will be made for him to endoscopy pending availability of schedule Friday or Friday * Not obtainable Past Medical History * Ventilator-dependent respiratory failure * Distal esophagitis, duodenitis, gastric ulcers * Diabetes mellitus * Chronic kidney disease * Cardiac arrhythmia * Decubitus pressure ulcers * Right kidney mass. Past Surgical History * Post PEG and tracheostomy Family History Significant Family History: no pertinent family hx Social History Alcohol Use: none Smoking Status: Never smoker Drug Use: none Exam/Review of Systems Vital Signs Vitals Vital Signs Date Time Temp Pulse Resp B/P Pulse Ox O2 Delivery O2 Flow Rate FiO2 12/07/16 12:25 97.8 78 20 92/57 94 12/07/16 11:00 60 12/07/16 00:00 Mechanical Ventilator Intake and Output 12/06/16 12/06/16 12/07/16 15:00 23:00 07:00 Intake Total 2900 ml 1800 ml Output Total 1200 ml Balance 2900 ml 600 ml Exam GENERAL: This is a frail-looking elderly male on mechanical ventilator. HEENT: Head normocephalic and atraumatic. Eyes: Anicteric sclerae. Conjunctivae clear. ENT: Nasal septum is midline. Oral mucosa is dry. NECK: Tracheostomy in place. RESPIRATORY: Bilaterally diminished breath sounds. Mechanically ventilated. CARDIAC: Regular rate and rhythm. S1, S2 heard. ABDOMEN: Scaphoid. Left upper quadrant G-tube in place. GENITOURINARY: The patient has a Lopez catheter in place. EXTREMITIES: Bilateral foot dressings over wounds. Trace pitting edema bilaterally. Pedal pulses palpable. NEUROLOGIC: The patient is obtunded. SKIN: Multiple pressure ulcers. Results Result Diagram: 12/07/16 1215 12/07/16 1215 Results 24 hrs Laboratory Tests Test 12/06/16 15:00 12/06/16 16:00 12/06/16 18:45 12/06/16 21:49 White Blood Count 13.4 #H Red Blood Count 2.17 L Hemoglobin 6.4 #*L Hematocrit 24.7 L Mean Corpuscular Volume 113.8 H Mean Corpuscular Hemoglobin 29.5 Mean Corpuscular Hemoglobin Concent 25.9 L Red Cell Distribution Width 17.2 H Platelet Count 188 # Mean Platelet Volume 13.5 #H Neutrophils % 76.0 Band Neutrophils % 7.0 H Lymphocytes % 3.0 L Monocytes % 6.0 Eosinophils % 6.0 Basophils % 1.0 Myelocytes % 1.0 H Neutrophils # 10.2 H Lymphocytes # 0.4 L Monocytes # 0.8 Eosinophils # 0.8 H Basophils # 0.1 Myelocytes # 0.1 Prothrombin Time 16.1 H Prothrombin Time Ratio 1.3 INR International Normalized Ratio 1.28 Sodium Level 177 *H Potassium Level 4.9 Chloride Level 135 H Carbon Dioxide Level 28 Anion Gap 19 H Blood Urea Nitrogen > 240 H Creatinine 4.65 H Glucose Level 218 Calcium Level 10.9 H Total Bilirubin 0.0 L Direct Bilirubin 0.00 Indirect Bilirubin 0.0 Aspartate Amino Transf (AST/SGOT) 14 L Alanine Aminotransferase (ALT/SGPT) 20 Alkaline Phosphatase 100 Troponin I 0.021 Total Protein 7.5 Albumin 3.2 L Globulin 4.30 H Albumin/Globulin Ratio 0.74 Lipase 54 Urine Color LT. YELLOW Urine Clarity CLOUDY H Urine pH 8.0 Urine Specific [place] 1.015 Urine Ketones NEGATIVE Urine Nitrite NEGATIVE Urine Bilirubin NEGATIVE Urine Urobilinogen 0.2 E.U./dL Urine Leukocyte Esterase 3+ H Urine Microscopic RBC 5-10 Urine Microscopic WBC >200 Urine Transitional Epithelial Cells FEW Urine Bacteria MANY Urine Hemoglobin 3+ H Urine Glucose NEGATIVE Urine Total Protein 2+ H Lactic Acid Level 1.8 Bedside Glucose 157 Test 12/06/16 22:35 12/07/16 02:26 12/07/16 05:26 12/07/16 06:00 Bedside Glucose 159 146 134 White Blood Count 12.2 H Red Blood Count 2.52 L Hemoglobin 7.6 L Hematocrit 26.5 L Mean Corpuscular Volume 105.2 H Mean Corpuscular Hemoglobin 30.2 Mean Corpuscular Hemoglobin Concent 28.7 L Red Cell Distribution Width 21.6 #H Platelet Count 159 Mean Platelet Volume 12.8 H Neutrophils % 81.0 H Band Neutrophils % 7.0 H Lymphocytes % 3.0 L Monocytes % 3.0 Eosinophils % 5.0 Myelocytes % 1.0 H Neutrophils # 9.9 H Lymphocytes # 0.4 L Monocytes # 0.4 Eosinophils # 0.6 H Myelocytes # 0.1 Macrocytosis 1+ Sodium Level 178 *H Potassium Level 3.9 Chloride Level 136 H Carbon Dioxide Level 24 Anion Gap 22 H Blood Urea Nitrogen 228 H Creatinine 4.10 H Glucose Level 125 # Hemoglobin A1c Osmolality 441 H Lactic Acid Level 1.7 Calcium Level 9.6 Phosphorus Level 4.8 Magnesium Level 3.4 H Iron Level 54 Total Iron Binding Capacity 162 L Percent Iron Saturation 33 Ferritin 4770.0 H Total Bilirubin 0.2 Direct Bilirubin 0.00 Indirect Bilirubin 0.2 Aspartate Amino Transf (AST/SGOT) 13 L Alanine Aminotransferase (ALT/SGPT) 14 Alkaline Phosphatase 79 Total Protein 6.1 # Albumin 2.5 L Globulin 3.60 H Albumin/Globulin Ratio 0.69 Triglycerides Level 334 H Cholesterol Level 70 L LDL Cholesterol, Calculated HDL Cholesterol 7 L Cholesterol/HDL Ratio 10.0 Vitamin D 1,25-Dihydroxy 26.8 L Thyroid Stimulating Hormone (TSH) 2.180 Free Thyroxine 1.37 Test 12/07/16 10:05 12/07/16 10:34 12/07/16 12:15 Urine Color LT. YELLOW Urine Clarity CLOUDY H Urine pH 7.0 Urine Specific [place] <=1.005 L Urine Ketones NEGATIVE Urine Nitrite NEGATIVE Urine Bilirubin NEGATIVE Urine Urobilinogen 0.2 E.U./dL Urine Leukocyte Esterase 3+ H Urine Microscopic RBC 10-25 Urine Microscopic WBC >50 Urine Bacteria FEW Urine Hemoglobin 3+ H Urine Osmolality 477 Urine Random Creatinine 18.97 L Urine Random Sodium 56 Urine Glucose NEGATIVE Urine Total Protein 101.0 H Bedside Glucose 130 White Blood Count 10.7 Red Blood Count 2.29 L Hemoglobin 6.8 *L Hematocrit 23.9 L Mean Corpuscular Volume 104.4 H Mean Corpuscular Hemoglobin 29.7 Mean Corpuscular Hemoglobin Concent 28.5 L Red Cell Distribution Width 21.5 H Platelet Count 143 Mean Platelet Volume 13.3 H Neutrophils % 83.3 H Lymphocytes % 3.9 L Monocytes % 4.1 Eosinophils % 7.0 Basophils % 0.0 Nucleated Red Blood Cells % 0.0 Neutrophils # 8.9 H Lymphocytes # 0.4 L Monocytes # 0.4 Eosinophils # 0.8 H Basophils # 0.0 Nucleated Red Blood Cells # 0.0 Sodium Level 170 *H Potassium Level 3.6 Chloride Level 139 H Carbon Dioxide Level 24 Anion Gap 11 # Blood Urea Nitrogen 200 H Creatinine 3.81 H Glucose Level 126 Calcium Level 9.2 Medications Medications Current Medications Sodium Chloride (1/2 NS) 1,000 ml @ 150 mls/hr Q6H40M IV Last administered on 12/07/16 02:37; Admin Dose 100 MLS/HR; Start 12/06/16 at 17:46 Ondansetron HCl (Zofran Inj) 4 mg Q6H PRN IV NAUSEA AND/OR VOMITING; Start at 18:00 Morphine Sulfate (morphine) 2 mg Q4H PRN IV PAIN LEVEL 7-10; Start 12/06/16 at 18:00 Pantoprazole (Protonix Iv) 40 mg BID@06,18 IV Last administered on 12/07/16 05 :30; Admin Dose 40 MG; Start 12/06/16 at 18:00 Amiodarone HCl (Cordarone) 200 mg DAILY GTB ; Start 12/07/16 at 09:00 Ascorbic Acid (Vitamin C) 500 mg DAILY GTB Last administered on 12/07/16 08:21 ; Admin Dose 500 MG; Start 12/07/16 at 09:00 Cholecalciferol (Vitamin D) 1,000 unit DAILY GTB Last administered on 08:21; Admin Dose 1,000 UNIT; Start 12/07/16 at 09:00 Eye Lubricant (Artificial Tears Oph) 2 drop BID BOTH EYES ; Start 12/06/16 at 21 :00 Zinc Sulfate (Zinc Sulfate) 220 mg DAILY GTB Last administered on 12/07/16 08: 21; Admin Dose 220 MG; Start 12/07/16 at 09:00 Insulin Aspart (Novolog Insulin Pen) NOVOLOG *MILD* ALGORITHM Q4H SC ; Start at 18:30 Insulin Glargine (Lantus) 6 unit DAILY@20 SC ; Start 12/06/16 at 20:00 Miscellaneous Information 1 ea NOTE XX ; Start 12/06/16 at 19:00 Glucose (Glutose) 15 gm Q15M PRN PO DECREASED GLUCOSE; Start 12/06/16 at 19:00 Glucose (Glutose) 22.5 gm Q15M PRN PO DECREASED GLUCOSE; Start 12/06/16 at 19: 00 Dextrose (D50w Syringe) 25 ml Q15M PRN IV DECREASED GLUCOSE; Start 12/06/16 at 19:00 Dextrose (D50w Syringe) 50 ml Q15M PRN IV DECREASED GLUCOSE; Start 12/06/16 at 19:00 Glucagon (Glucagen) 1 mg Q15M PRN IM DECREASED GLUCOSE; Start 12/06/16 at 19:00 Glucose 15 gm 15 gm Q15M PRN BUCCAL DECREASED GLUCOSE; Start 12/06/16 at 19:00 Cefepime HCl (Maxipime 1gm/50 ml (Pmx)) 50 ml @ 100 mls/hr Q24H IVPB ; Start at 17:00 Ferrous Sulfate (Feosol Liquid Cup) 300 mg DAILY GTB Last administered on 09:09; Admin Dose 300 MG; Start 12/07/16 at 09:00 Collagenase (Santyl) 1 applic DAILY TOP ; Start 12/07/16 at 11:30 Collagenase 1 applic 1 applic PRN PRN TOP WOUND CARE; Start 12/07/16 at 11:00 Linezolid 300 ml @ 300 mls/hr Q12 IVPB ; Start 12/07/16 at 13:30 Imipenem/ Cilastatin Sodium (Primaxin 500 Mg/ 100 ml (Pmx)) 100 ml @ 100 mls/ hr Q12 IVPB ; Start 12/07/16 at 14:00 LUCIO LEWIS MD Dec 07, 2016 14:08
[2016-12-07] MEDS: IMIPENEM-CILAST 500MG IV (PMX) 100 ML IVPB SCH (14:17)
[2016-12-07] MEDS: COLLAGENASE 30 GM TUBE TOP SCH (15:31)
--- NOTE | 2016-12-07 16:07 | RADRPT ---
PROCEDURE: US Renal CLINICAL INDICATION: Acute renal insufficiency. TECHNIQUE: Multiple sonographic images of the kidneys and bladder were obtained. Evaluation of th e kidneys and bladder was performed as well with garcia scale and color and Doppler evaluation using a curved array transducer. The images were reviewed on a high-resolution PACS workstation. COMPARISON: Previous renal ultrasound 10/31/[address] from 11/01/2016. FINDINGS: The right kidney measures 11.8 cm. The left kidney measures 13.1 cm. There is normal echogenicity within the parenchyma of the kidneys bilaterally. The indeterminate right renal masses described previously are once again visualized. These are again located in the superior pole of the right kidney and demonstrates some peripheral vascularity. Ther e is a 2.4 x 2.2 cm cyst in the lower pole of the left kidney. There is mild right-sided hydronephrosis present. There is circumferential bladder wall thickening with a Lopez catheter present IMPRESSION: 1. Indeterminate upper pole right renal masses. Once again, contrast enhanced CT or MRI is suggest ed for better characterization. 2. 2.4 x 2.2 cm cyst in the lower pole of the left kidney. 3. Mild right-sided hydronephrosis of uncertain significance. RPTAT: [facility] Physician Shaquille Date Time Electronically viewed and signed by Physician Shaquille on 12/07/2016 16:06 /
[2016-12-07] MEDS ORDERED: CEFEPIME 1GM/50 ML (PMX) 50 ML IVPB SCH (17:00)
[2016-12-07] MEDS ORDERED: INSULIN ASPART [NOVOLOG] 3 ML PEN SC PRN (18:00)
[2016-12-07] MEDS ORDERED: IMIPENEM/CILASTATIN 1,000 MG in SOD CHLORIDE 0.9% 250 ML IVPB SCH (18:00)
[2016-12-07] MEDS: ACETAMINOPHEN 650MG/20.3ML CUP GTB PRN (18:07)
--- NOTE | 2016-12-07 18:46 | CONS ---
DATE OF ADMISSION: 12/06/2016 DATE OF CONSULTATION: 12/07/2016 PULMONARY CONSULTATION PRIMARY PHYSICIAN:Carie Bowens NP REASON FOR CONSULTATION: Vent-dependent respiratory failure. HISTORY OF PRESENT ILLNESS: Briefly, this is a 71-year-old gentleman with history of chronic enceph alopathy, chronic vent-dependent respiratory failure, status post tracheostomy, gastric ulcers, diab etes, chronic kidney disease, esophagitis, who was transferred from [facility] af ter being found to have numerous laboratory abnormalities including hyperkalemia, renal failure, and hypernatremia. He has been seen by numerous specialties and is being managed accordingly. He rogelio ins on mechanical ventilation and is nonresponsive. PAST MEDICAL HISTORY: As noted above. PAST SURGICAL HISTORY: Tracheostomy and G-tube placement. ALLERGIES: NONE. MEDICATIONS: Please see MAR. SOCIAL HISTORY: No tobacco, alcohol or illicit drug use. FAMILY HISTORY: Noncontributory. REVIEW OF SYSTEMS: Unable to obtain. PHYSICAL EXAMINATION: VITAL SIGNS: Temperature is 99.6, blood pressure is 96/55, oxygen saturation is 96% on 70% FIO2. HEENT: Normocephalic, atraumatic. NECK: No thyromegaly, no jugular venous distention. CARDIOVASCULAR: Irregular. S1, S2. A I/ systolic murmur heard at the apex. CHEST: Coarse breath sounds and rhonchi, right greater than left. ABDOMEN: G-tube site is clear. EXTREMITIES: Contracted. LABORATORY DATA: WBC is 10.7, hemoglobin 6.8, platelets are 143, BUN is 200. Creatinine is 3.81. Sodium is 170. UA with numerous WBCs. IMPRESSION: 1. Severe sepsis, likely secondary to urosepsis. 2. Acute on chronic kidney disease. 3. Hypernatremia with severe free water deficit. 4. Chronic vent-dependent respiratory failure. 5. Encephalopathy. RECOMMENDATIONS: 1. Will titrate FIO2 on mechanical ventilator, obtain ABG and adjust ventilator settings. 2. Follow up blood cultures and urine cultures. 3. Antibiotics per ID with plans to de-escalate pending cultures. 4. Increase free water as per renal. 5. We will follow serum creatinine closely, as well as electrolytes. Dictated By: CLEM NELSON/LESLY Conf#: [id number] DID#: [id number] CC: NICK BALLARD MD;*[facility]*
--- NOTE | 2016-12-07 18:57 | PN ---
Date/Time of Note Date/Time of Note DATE: 12/07/16 TIME: 18:56 Assessment/Plan VTE Prophylaxis VTE Prophylaxis Intervention: contraindicated Lines/Catheters IV Catheter Type (from [facility] Peripheral IV Urinary Cath still in place: Yes Reason Cath still needed: pres ulcer contaminated by urine Assessment/Plan Chief Complaint/Hosp Course 1. Sepsis, most probably secondary to underlying pneumonia and urinary tract infection. No evidence of any septic shock. The patient was started on empiric antibiotics. Pending pancultures. Being followed by infectious diseases. 2. Mfhyi-hn-oettavd kidney injury. Nephrotoxic drugs will be used with caution. Nephrology following. 3. Hypernatremia. The patient will be provided with free water through the G- tube. Nephrology following. The patient's sodium will be lowered gradually. 4. Type 2 diabetes. The patient will be continued on sliding scale insulin and basal insulin. Hemoglobin A1c pending. 5. Macrocytic anemia. Status post blood transfusion on 12/06/16. To be transfused with PRBCs today also. Obtain a gastroenterology consult. 6. Cardiac arrhythmia. The patient is on amiodarone. 7. Multiple pressure ulcers. A wound care consult will be ordered. The patient will be placed on a specialty mattress. 8. Chronic encephalopathy. The patient remains to be a FULL CODE. The patient is ventilator dependent. Palliative care consult called. 9. Ventilator dependent respiratory failure. The patient being followed by pulmonary. Ventilator management as per pulmonary. 10. Fluids, electrolytes, and nutrition. Continue G-tube feedings. 11. DVT prophylaxis. Contraindicated. 12. Gastrointestinal prophylaxis. Proton pump inhibitors. 13. Plan. Continue antibiotics. Transfuse 2 units of PRBCs. Obtain a gastroenterology consult. Case discussed with Dr. Silverio. Problems: Subjective 24 Hr Interval Summary Free Text/Dictation Patient had a low-grade fever. Exam/Review of Systems Vital Signs Vitals Vital Signs Date Time Temp Pulse Resp B/P Pulse Ox O2 Delivery O2 Flow Rate FiO2 12/07/16 17:20 79 28 96 70 12/07/16 15:56 99.6 96/55 12/07/16 00:00 Mechanical Ventilator Intake and Output 12/06/16 12/06/16 12/07/16 14:59 22:59 06:59 Intake Total 2900 ml 1800 ml Output Total 1200 ml Balance 2900 ml 600 ml Exam GENERAL: This is a frail-looking elderly male patient, lying in bed with a with a tracheostomy connected to mechanical ventilator. HEENT: Head normocephalic and atraumatic. Eyes: Anicteric sclerae. Conjunctivae clear. ENT: Nasal septum is midline. Oral mucosa is dry. NECK: The patient has a tracheostomy in place. Tracheostomy in the midline. RESPIRATORY: Bilaterally diminished breath sounds. Mechanically ventilated. CARDIAC: Regular rate and rhythm. S1, S2 heard. ABDOMEN: Scaphoid. Left upper quadrant G-tube in place. GENITOURINARY: The patient has a Lopez catheter in place. EXTREMITIES: Bilateral foot dressings over wounds. Trivial pretibial edema bilaterally. Pedal pulses palpable. NEUROLOGIC: The patient is obtunded. SKIN: Multiple pressure ulcers. Results Result Diagram: 12/07/16 1215 12/07/16 1215 Results 24 hrs Laboratory Tests Test 12/06/16 21:49 12/06/16 22:35 12/07/16 02:26 12/07/16 05:26 Bedside Glucose 157 159 146 134 Test 12/07/16 06:00 12/07/16 10:05 12/07/16 10:34 12/07/16 12:15 White Blood Count 12.2 H 10.7 Red Blood Count 2.52 L 2.29 L Hemoglobin 7.6 L 6.8 *L Hematocrit 26.5 L 23.9 L Mean Corpuscular Volume 105.2 H 104.4 H Mean Corpuscular Hemoglobin 30.2 29.7 Mean Corpuscular Hemoglobin Concent 28.7 L 28.5 L Red Cell Distribution Width 21.6 #H 21.5 H Platelet Count 159 143 Mean Platelet Volume 12.8 H 13.3 H Neutrophils % 81.0 H 83.3 H Band Neutrophils % 7.0 H Lymphocytes % 3.0 L 3.9 L Monocytes % 3.0 4.1 Eosinophils % 5.0 7.0 Myelocytes % 1.0 H Neutrophils # 9.9 H 8.9 H Lymphocytes # 0.4 L 0.4 L Monocytes # 0.4 0.4 Eosinophils # 0.6 H 0.8 H Myelocytes # 0.1 Macrocytosis 1+ Sodium Level 178 *H 170 *H Potassium Level 3.9 3.6 Chloride Level 136 H 139 H Carbon Dioxide Level 24 24 Anion Gap 22 H 11 # Blood Urea Nitrogen 228 H 200 H Creatinine 4.10 H 3.81 H Glucose Level 125 # 126 Hemoglobin A1c Osmolality 441 H Lactic Acid Level 1.7 Calcium Level 9.6 9.2 Phosphorus Level 4.8 Magnesium Level 3.4 H Iron Level 54 Total Iron Binding Capacity 162 L Percent Iron Saturation 33 Ferritin 4770.0 H Total Bilirubin 0.2 Direct Bilirubin 0.00 Indirect Bilirubin 0.2 Aspartate Amino Transf (AST/SGOT) 13 L Alanine Aminotransferase (ALT/SGPT) 14 Alkaline Phosphatase 79 Total Protein 6.1 # Albumin 2.5 L Globulin 3.60 H Albumin/Globulin Ratio 0.69 Triglycerides Level 334 H Cholesterol Level 70 L LDL Cholesterol, Calculated HDL Cholesterol 7 L Cholesterol/HDL Ratio 10.0 Vitamin D 1,25-Dihydroxy 26.8 L Thyroid Stimulating Hormone (TSH) 2.180 Free Thyroxine 1.37 Urine Color LT. YELLOW Urine Clarity CLOUDY H Urine pH 7.0 Urine Specific Morley <=1.005 L Urine Ketones NEGATIVE Urine Nitrite NEGATIVE Urine Bilirubin NEGATIVE Urine Urobilinogen 0.2 E.U./dL Urine Leukocyte Esterase 3+ H Urine Microscopic RBC 10-25 Urine Microscopic WBC >50 Urine Bacteria FEW Urine Hemoglobin 3+ H Urine Osmolality 477 Urine Random Creatinine 18.97 L Urine Random Sodium 56 Urine Glucose NEGATIVE Urine Total Protein 101.0 H Bedside Glucose 130 Basophils % 0.0 Nucleated Red Blood Cells % 0.0 Basophils # 0.0 Nucleated Red Blood Cells # 0.0 Test 12/07/16 15:28 12/07/16 17:52 Bedside Glucose 178 150 Medications Medications Current Medications Sodium Chloride (1/2 NS) 1,000 ml @ 150 mls/hr Q6H40M IV Last administered on 12/07/16 14:05; Admin Dose 150 MLS/HR; Start 12/06/16 at 17:46 Ondansetron HCl (Zofran Inj) 4 mg Q6H PRN IV NAUSEA AND/OR VOMITING; Start at 18:00 Morphine Sulfate (morphine) 2 mg Q4H PRN IV PAIN LEVEL 7-10; Start 12/06/16 at 18:00 Pantoprazole (Protonix Iv) 40 mg BID@06,18 IV Last administered on 12/07/16 17 :57; Admin Dose 40 MG; Start 12/06/16 at 18:00 Amiodarone HCl (Cordarone) 200 mg DAILY GTB ; Start 12/07/16 at 09:00 Ascorbic Acid (Vitamin C) 500 mg DAILY GTB Last administered on 12/07/16 08:21 ; Admin Dose 500 MG; Start 12/07/16 at 09:00 Cholecalciferol (Vitamin D) 1,000 unit DAILY GTB Last administered on 08:21; Admin Dose 1,000 UNIT; Start 12/07/16 at 09:00 Eye Lubricant (Artificial Tears Oph) 2 drop BID BOTH EYES ; Start 12/06/16 at 21 :00 Zinc Sulfate (Zinc Sulfate) 220 mg DAILY GTB Last administered on 12/07/16 08: 21; Admin Dose 220 MG; Start 12/07/16 at 09:00 Insulin Glargine (Lantus) 6 unit DAILY@20 SC ; Start 12/06/16 at 20:00 Miscellaneous Information 1 ea NOTE XX ; Start 12/06/16 at 19:00 Glucose (Glutose) 15 gm Q15M PRN PO DECREASED GLUCOSE; Start 12/06/16 at 19:00 Glucose (Glutose) 22.5 gm Q15M PRN PO DECREASED GLUCOSE; Start 12/06/16 at 19: 00 Dextrose (D50w Syringe) 25 ml Q15M PRN IV DECREASED GLUCOSE; Start 12/06/16 at 19:00 Dextrose (D50w Syringe) 50 ml Q15M PRN IV DECREASED GLUCOSE; Start 12/06/16 at 19:00 Glucagon (Glucagen) 1 mg Q15M PRN IM DECREASED GLUCOSE; Start 12/06/16 at 19:00 Glucose (Glutose) 15 gm Q15M PRN BUCCAL DECREASED GLUCOSE; Start 12/06/16 at 19 :00 Ferrous Sulfate (Feosol Liquid Cup) 300 mg DAILY GTB Last administered on 09:09; Admin Dose 300 MG; Start 12/07/16 at 09:00 Collagenase (Santyl) 1 applic DAILY TOP Last administered on 12/07/16 15:31; Admin Dose 1 APPLIC; Start 12/07/16 at 11:30 Collagenase 1 applic 1 applic PRN PRN TOP WOUND CARE; Start 12/07/16 at 11:00 Linezolid 300 ml @ 300 mls/hr Q12 IVPB ; Start 12/07/16 at 13:30 Imipenem/ Cilastatin Sodium (Primaxin 500 Mg/ 100 ml (Pmx)) 100 ml @ 100 mls/ hr Q12 IVPB Last administered on 12/07/16 14:17; Admin Dose 100 MLS/HR; Start 12/07/16 at 14:00 Acetaminophen (Tylenol Liquid) 500 mg Q4H PRN GTB PAIN AND OR ELEVATED TEMP Last administered on 12/07/16 18:07; Admin Dose 500 MG; Start 12/07/16 at 18:00 Insulin Aspart (Novolog Insulin Pen) NOVOLOG *MILD* ALGORITHM Q6 SC ; Start at 00:00 JULIAN EASON NP Dec 07, 2016 18:57
[2016-12-07 21:34] LABS: POTASSIUM 3.6 mmol/L (3.5-5.1)
[2016-12-07 21:37] LABS: CREATININE 3.6 mg/dl (0.61-1.24)
[2016-12-07 21:38] LABS: CALCIUM 8.8 mg/dl (8.4-10.2)
[2016-12-07] MEDS: INSULIN GLARGINE [LANtus] 3 ML PEN SC SCH (22:02)
--- NOTE | 2016-12-07 23:25 | QN ---
Documentation Comment Was called to ICU to place a central line by Dr. Domi Patton. Indication: Patient hypotensive in need of pressors. Central venous catheter placement note, left femoral vein: Patient was prepped and draped in sterile fashion. Drapes, mask, gown, gloves, Ultrasound probe cover used. Chlorhexidine wipe anesthetized with 1 cc of lidocaine without epinephrine. Ultrasound guidance was used to easily introduce a 7 Uzbek triple -lumen catheter into the left femoral vein. All ports flushed well there was good blood flow. Patient to either procedure or other no complications. No change in vital signs. CEE OLIVER DO Dec 07, 2016 23:25
--- NOTE | 2016-12-07 23:47 | EN ---
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 This is a 71 year old man who was admitted yesterday, from [facility], for Anemia and Acute Kidney Injury. He is a ventilated Trach patient. On arrival to the ER, his Hgb was 6.4. He was transfused 2 units and his hemoglobin came up to 7.6. However, it went down to 6.8 and he is currently getting his fourth unit of packed red blood cells. Also, his fluid rate has been increased from 75 mL an hour to 150 mL an hour and the amount of his G-tube flush was also increased. As patient is hypotensive and remaining anemic despite receiving blood transfusions, it seems that he is bleeding somewhere, but the source has not yet been identified. He is to have GI scope him on Friday, December 09. I feel that it is best to preemptively transfer him to the intensive care unit, before his blood pressure gets any lower. I feel that he will need a central line. As we were arranging patient's transfer to the intensive care unit, his systolic blood pressure increased to 90, but I said we should still proceed with the transfer. Patient was taken to the ICU room #106. I instructed the RN to let me know if his blood pressure dropped again, and we will get a central line placed and start him on a pressor. Critical Care Time: 25 minutes was spent in evaluating, treating, transferring and coordinating care of this patient with his RN on Tele, the ICU and the T[employer].. FRANKIE BURKS DO Dec 07, 2016 23:47
[2016-12-08] VITALS (83 sets, daily range): BP systolic 76–122; BP diastolic 43–72; PULSE 61–90; RESP 10–52
[2016-12-08] MEDS ORDERED: DEXTROSE 5% 1,000 ML IV SCH
[2016-12-08] MEDS: IMIPENEM-CILAST 500MG IV (PMX) 100 ML IVPB SCH ×3 (00:12→20:08)
[2016-12-08] MEDS: NORepinephrine 8MG/250 ML (PMX 250 ML IV SCH ×2 (00:19→15:03)
[2016-12-08] MEDS: ALBUTEROL 18 GM INHALER INH SCH ×4 (01:17→19:23)
[2016-12-08 04:49] LABS: AADO2 Arterial 300.4 mmHg (7.0-24.0); Allen Test ACCEPTAB; Arterial COHb 0.3 % (0.0-3.0); Arterial Fraction of Oxyhgb 95.3 % (93.0-99.0); Arterial HCO3 20.2 mmol/L (22.0-26.0); Arterial MetHb 0.5 % (0.0-1.5); Arterial Total Hemglobin 9.6 g/dl (12.0-18.0); MODE VENT - AC
[2016-12-08 04:58] LABS: ADD SCAN DIFF NO
[2016-12-08 05:15] LABS: POTASSIUM 3.2 mmol/L (3.5-5.1)
[2016-12-08 05:18] LABS: CREATININE 3.62 mg/dl (0.61-1.24); PHOSPHORUS 4.6 mg/dl (2.5-4.9)
[2016-12-08 05:19] LABS: CALCIUM 9.1 mg/dl (8.4-10.2); MAGNESIUM 2.9 mg/dl (1.7-2.5)
[2016-12-08] MEDS: PANTOPRAZOLE 40 MG INJ IV SCH ×2 (06:12→17:51)
[2016-12-08] MEDS: INSULIN ASPART [NOVOLOG] 3 ML PEN SC SCH ×4 (06:18→17:52)
[2016-12-08 07:11] LABS: HEMATOCRIT 29.4 % (42.0-52.0); HEMOGLOBIN 8.6 g/dl (14.0-18.0); MEAN CORPUSCULAR HEMOGLOBIN 28.6 pg (29.0-33.0); MEAN CORPUSCULAR HGB CONC 29.3 g/dl (32.0-37.0); MEAN CORPUSCULAR VOLUME 97.7 fl (82.0-101.0); RED BLOOD COUNT 3.01 10^6/ul (4.70-6.10); RED CELL DISTRIBUTION WIDTH 23.3 % (11.5-14.5); WHITE BLOOD COUNT 13.8 10^3/ul (4.8-10.8)
[2016-12-08 07:12] LABS: ABNORMAL IP MESSAGE 1; MEAN PLATELET VOLUME 13.9 fl (7.4-10.4); PLATELET COUNT 141 10^3/UL (140-415)
[2016-12-08] MEDS ORDERED: POTASSIUM CHLORIDE 20 MEQ POWDER FOR ORAL SOLN GTB ONE (08:00)
[2016-12-08] MEDS: FERROUS SULFATE 60 MG/ML 5ML CUP GTB SCH (08:14)
[2016-12-08] MEDS: ASCORBIC ACID 500 MG TAB GTB SCH (08:15)
[2016-12-08] MEDS: CHOLECALCIFEROL 1,000 UNIT TAB GTB SCH (08:15)
[2016-12-08] MEDS: ZINC SULFATE 220 MG CAP GTB SCH (08:15)
[2016-12-08] MEDS: ARTIFICIAL TEARS 15 ML OPH BOTH EYES SCH ×2 (08:15→20:09)
[2016-12-08] MEDS: AMIODARONE 200 MG TAB GTB SCH (08:15)
[2016-12-08] MEDS: COLLAGENASE 30 GM TUBE TOP SCH (08:16)
[2016-12-08] MEDS: SOD CHLORIDE 0.45% 1,000 ML IV SCH ×3 (08:18→23:26)
--- NOTE | 2016-12-08 08:43 | PN ---
DATE: 12/08/2016 SUBJECTIVE: The patient was transferred from the telemetry to the intensive care unit overnight as the patient was hypotensive. The patient was given IV fluids and placed on pressor support. The julianne guadalupe was eventually weaned off pressor support. No other events noted. The patient remains lethar gic, obtunded. There have been no reports of hemoptysis, hematemesis or hematochezia. OBJECTIVE: VITAL SIGNS: Blood pressure 106/57, respirations 11, pulse 83, temperature 98.6. I's AND O'S: The patient had 5.7 liters in and output is 2.8 liters. HEENT: Head is normocephalic. Pupils are reactive. NECK: Shows trache. HEART: Regular rate. LUNGS: Show diminished breath sounds at the base. ABDOMEN: Soft, nontender to palpation. Positive PEG. EXTREMITIES: Negative for clubbing, cyanosis. Positive wound. DERMATOLOGIC: No rashes. MUSCULOSKELETAL: Noticed decubitus wound. NEUROLOGIC: No change in exam. LABORATORY DATA: Shows sodium 169, potassium 3.2, chloride 132, BUN is 180, creatinine 3.62. White count is 13.8, hemoglobin 9.6, hematocrit 29.4, platelet count is 141. Urinalysis shows creatinine greater than 1%, a urine osmolarity of 477, protein creatinine ratio approximately 5 grams per gram of creatinine. Renal ultrasound shows an upper pole renal mass with mild right-sided hydronephrosi s. ASSESSMENT AND PLAN: 1. Nonoliguric acute kidney injury with previous baseline creatinine of 1 to 1.4 mg/dL. Etiology o f acute kidney injury is secondary to prerenal volume depletion with possible tubular injury. The p atient's renal ultrasound shows no evidence of obstruction. The patient's repeat urinalysis does co ntinue to show pyuria, although improving and there is noted proteinuria. The patient's renal funct ion has been improving with supportive care and IV hydration. Plan at this point is to continue cur rent treatment plan. Continue IV hydration. Continue to renally dose all meds, avoid nephrotoxins. There is no immediate need for renal replacement therapy at this time and monitor closely. 2. Severe hypernatremia. The patient has a free water deficit of approximately 6 liters. Etiology is secondary to insensible losses with questionable partial diabetes insipidus. The patient's urin e osmolarity levels were around 480 mOsm. Would however expect higher osmolarity given the patient' s severe hypernatremia. However, the patient has been responding to hypertonic fluids and free wate r flushes. The patient's sodium levels appropriately corrected approximately 10 mEq in a 24-hour pe riod. Plan is to continue free water flushes 400 mL q.4 hours. Continue hypotonic fluid. Monitor serial sodium levels to ensure correction of no more than 10 to 12 mEq in the next 24 hours. 3. Hypokalemia, replete potassium chloride. 4. Mineral bone blood calcium and phosphorus levels. 5. Hypermagnesemia, continue to monitor hemoglobin and hematocrit levels. 6. Anemia. The patient is status post blood transfusion. Continue to monitor hemoglobin and hemat ocrit levels. We will give Epogen as needed. 7. Hypertension, etiology secondary to volume depletion, questionable sepsis. The patient is clini jose and responded to IV fluids and IV antibiotics, will continue to monitor. 8. Sepsis secondary to urinary tract infection and pneumonia. Continue current antibiotic regimen. Continue IV fluids. The patient is currently off of pressors. 9. Diabetes, continue Accu-Cheks and sliding scale. 10. Arrhythmia. Continue amiodarone. 11. Decubitus wound pressure ulcer. Continue wound care. 12. Chronic encephalopathy. No change. 13. Sedentary dependent respiratory failure. Vent settings have been reviewed. ABG has been review ed. Continue to monitor. 14. Dysphagia, status post PEG tube, continue tube feeding. 15. Diabetes. Continue Accu-Cheks and insulin sliding scale. Please note I spent over 35 minutes of critical care time with this patient. Dictated By: JACOB GOMEZ/LESLY Conf#: [id number] DID#: [id number]
--- NOTE | 2016-12-08 08:56 | PN ---
Date/Time of Note Date/Time of Note DATE: 12/08/16 TIME: 08:54 Assessment/Plan VTE Prophylaxis VTE Prophylaxis Intervention: contraindicated Lines/Catheters IV C[facility] Type (from [facility]): Central Line Central line still needed: Yes Urinary Cath still in place: Yes Reason Cath still needed: pres ulcer contaminated by urine Assessment/Plan Chief Complaint/Hosp Course 1. Sepsis, most probably secondary to underlying pneumonia and urinary tract infection with evidence of any septic shock. The patient was started on empiric antibiotics. Pending pancultures. Being followed by infectious diseases. Status post IV pressors. 2. Nltze-uz-vltsxfy kidney injury. Nephrotoxic drugs will be used with caution. Nephrology following. 3. Hypernatremia. The patient will be provided with free water through the G- tube. Nephrology following. The patient's sodium will be lowered gradually. 4. Type 2 diabetes. The patient will be continued on sliding scale insulin and basal insulin. Hemoglobin A1c pending. 5. Macrocytic anemia. Status post blood transfusion of multiple blood products. Gastroenterology following. 6. Cardiac arrhythmia. The patient is on amiodarone. 7. Multiple pressure ulcers. Wound care consult. The patient will be placed on a specialty mattress. 8. Chronic encephalopathy. The patient remains to be a FULL CODE. The patient is ventilator dependent. Palliative care consult called. 9. Ventilator dependent respiratory failure. The patient being followed by pulmonary. Ventilator management as per pulmonary. 10. Fluids, electrolytes, and nutrition. Continue G-tube feedings. 11. DVT prophylaxis. Contraindicated. 12. Gastrointestinal prophylaxis. Proton pump inhibitors. 13. Plan. Continue antibiotics. Replete potassium. Case discussed with Dr. Silverio. Critical care time: 35 minutes. Problems: Subjective 24 Hr Interval Summary Free Text/Dictation The patient was transferred to intensive care unit last night because of hypotension that required IV pressors for blood pressure support. Currently off IV pressors. Exam/Review of Systems Vital Signs Vitals Vital Signs Date Time Temp Pulse Resp B/P Pulse Ox O2 Delivery O2 Flow Rate FiO2 12/08/16 08:30 85 40 94/56 96 12/08/16 08:00 98.6 12/08/16 06:00 Mechanical Ventilator 12/08/16 05:20 50 Intake and Output 12/07/16 12/07/16 12/08/16 15:00 23:00 07:00 Intake Total 1000 ml 2380 ml 2369.35 ml Output Total 2050 ml 825 ml Balance 1000 ml 330 ml 1544.35 ml Exam GENERAL: This is a frail-looking elderly male patient, lying in bed with a with a tracheostomy connected to mechanical ventilator. HEENT: Head normocephalic and atraumatic. Eyes: Anicteric sclerae. Conjunctivae clear. ENT: Nasal septum is midline. Oral mucosa is dry. NECK: The patient has a tracheostomy in place. Tracheostomy in the midline. RESPIRATORY: Bilaterally diminished breath sounds. Mechanically ventilated. CARDIAC: Regular rate and rhythm. S1, S2 heard. ABDOMEN: Scaphoid. Left upper quadrant G-tube in place. GENITOURINARY: The patient has a Lopez catheter in place. EXTREMITIES: Bilateral foot dressings over wounds. Trivial pretibial edema bilaterally. Pedal pulses palpable. NEUROLOGIC: The patient is obtunded. SKIN: Multiple pressure ulcers. Results Result Diagram: 12/08/16 0400 12/08/16 0400 Results 24 hrs Laboratory Tests Test 12/07/16 10:05 12/07/16 10:34 12/07/16 12:15 12/07/16 15:28 Urine Color LT. YELLOW Urine Clarity CLOUDY H Urine pH 7.0 Urine Specific [place] <=1.005 L Urine Ketones NEGATIVE Urine Nitrite NEGATIVE Urine Bilirubin NEGATIVE Urine Urobilinogen 0.2 E.U./dL Urine Leukocyte Esterase 3+ H Urine Microscopic RBC 10-25 Urine Microscopic WBC >50 Urine Bacteria FEW Urine Hemoglobin 3+ H Urine Osmolality 477 Urine Random Creatinine 18.97 L Urine Random Sodium 56 Urine Glucose NEGATIVE Urine Total Protein 101.0 H Bedside Glucose 130 178 White Blood Count 10.7 Red Blood Count 2.29 L Hemoglobin 6.8 *L Hematocrit 23.9 L Mean Corpuscular Volume 104.4 H Mean Corpuscular Hemoglobin 29.7 Mean Corpuscular Hemoglobin Concent 28.5 L Red Cell Distribution Width 21.5 H Platelet Count 143 Mean Platelet Volume 13.3 H Neutrophils % 83.3 H Lymphocytes % 3.9 L Monocytes % 4.1 Eosinophils % 7.0 Basophils % 0.0 Nucleated Red Blood Cells % 0.0 Neutrophils # 8.9 H Lymphocytes # 0.4 L Monocytes # 0.4 Eosinophils # 0.8 H Basophils # 0.0 Nucleated Red Blood Cells # 0.0 Sodium Level 170 *H Potassium Level 3.6 Chloride Level 139 H Carbon Dioxide Level 24 Anion Gap 11 # Blood Urea Nitrogen 200 H Creatinine 3.81 H Glucose Level 126 Calcium Level 9.2 Test 12/07/16 17:52 12/07/16 21:00 12/07/16 21:59 12/08/16 00:20 Bedside Glucose 150 139 173 Sodium Level 169 *H Potassium Level 3.6 Chloride Level 133 H Carbon Dioxide Level 22 Anion Gap 18 #H Blood Urea Nitrogen 202 H Creatinine 3.60 H Glucose Level 121 Calcium Level 8.8 Test 12/08/16 04:00 12/08/16 05:00 12/08/16 06:14 White Blood Count 13.8 #H Red Blood Count 3.01 #L Hemoglobin 8.6 #L Hematocrit 29.4 #L Mean Corpuscular Volume 97.7 Mean Corpuscular Hemoglobin 28.6 L Mean Corpuscular Hemoglobin Concent 29.3 L Red Cell Distribution Width 23.3 H Platelet Count 141 Mean Platelet Volume 13.9 H Neutrophils % Eosinophils % Neutrophils # Eosinophils # Sodium Level 169 *H Potassium Level 3.2 L Chloride Level 132 H Carbon Dioxide Level 23 Anion Gap 17 H Blood Urea Nitrogen 180 H Creatinine 3.62 H Glucose Level 199 Lactic Acid Level 1.4 Calcium Level 9.1 Phosphorus Level 4.6 Magnesium Level 2.9 H Blood Gas Specimen Source Blood arterial Arterial Blood Date Drawn 12/08/2016 4:15:32 AM Arterial Blood pH (Temp corrected) 7.400 Arterial Blood pCO2 (Temp correct) 33.3 L Arterial Blood pO2 (Temp corrected) 90.8 H Arterial Blood HCO3 20.2 L Arterial Blood Base Excess -4.0 L Arterial Blood Oxygen Saturation 96.1 Pedro Test ACCEPTAB Arterial Blood Gas Puncture Site Right Radial Arterial Blood Carboxyhemoglobin 0.3 Arterial Blood Methemoglobin 0.5 Blood Gas A-a O2 Differential 300.4 H Oxyhemoglobin Percent 95.3 Total Hemoglobin 9.6 L Blood Gas Temperature 37.0 Blood Gas Respiration Rate 16.0 Blood Gas Actual Respiration Rate 16 Blood Gas Modality VENT - AC FiO2 60.0 Blood Gas Tidal Volume 500.0 Blood Gas Low PEEP Setting 5.0 Blood Gas Notified Whom MM Blood Gas Notified Time 12/08/2016 4:49:45 AM Bedside Glucose 221 H Medications Medications Current Medications Ondansetron HCl (Zofran Inj) 4 mg Q6H PRN IV NAUSEA AND/OR VOMITING; Start at 18:00 Morphine Sulfate (morphine) 2 mg Q4H PRN IV PAIN LEVEL 7-10; Start 12/06/16 at 18:00 Pantoprazole (Protonix Iv) 40 mg BID@06,18 IV Last administered on 12/08/16 06 :12; Admin Dose 40 MG; Start 12/06/16 at 18:00 Amiodarone HCl (Cordarone) 200 mg DAILY GTB ; Start 12/07/16 at 09:00 Ascorbic Acid (Vitamin C) 500 mg DAILY GTB Last administered on 12/08/16 08:15 ; Admin Dose 500 MG; Start 12/07/16 at 09:00 Cholecalciferol (Vitamin D) 1,000 unit DAILY GTB Last administered on 08:15; Admin Dose 1,000 UNIT; Start 12/07/16 at 09:00 Eye Lubricant (Artificial Tears Oph) 2 drop BID BOTH EYES Last administered on 12/08/16 08:15; Admin Dose 2 DROP; Start 12/06/16 at 21:00 Zinc Sulfate (Zinc Sulfate) 220 mg DAILY GTB Last administered on 12/08/16 08: 15; Admin Dose 220 MG; Start 12/07/16 at 09:00 Insulin Glargine (Lantus) 6 unit DAILY@20 SC Last administered on 12/07/16 22: 02; Admin Dose 6 UNIT; Start 12/06/16 at 20:00 Miscellaneous Information 1 ea NOTE XX ; Start 12/06/16 at 19:00 Glucose (Glutose) 15 gm Q15M PRN PO DECREASED GLUCOSE; Start 12/06/16 at 19:00 Glucose (Glutose) 22.5 gm Q15M PRN PO DECREASED GLUCOSE; Start 12/06/16 at 19: 00 Dextrose (D50w Syringe) 25 ml Q15M PRN IV DECREASED GLUCOSE; Start 12/06/16 at 19:00 Dextrose (D50w Syringe) 50 ml Q15M PRN IV DECREASED GLUCOSE; Start 12/06/16 at 19:00 Glucagon (Glucagen) 1 mg Q15M PRN IM DECREASED GLUCOSE; Start 12/06/16 at 19:00 Glucose (Glutose) 15 gm Q15M PRN BUCCAL DECREASED GLUCOSE; Start 12/06/16 at 19 :00 Ferrous Sulfate (Feosol Liquid Cup) 300 mg DAILY GTB Last administered on 08:14; Admin Dose 300 MG; Start 12/07/16 at 09:00 Collagenase (Santyl) 1 applic DAILY TOP Last administered on 12/07/16 15:31; Admin Dose 1 APPLIC; Start 12/07/16 at 11:30 Collagenase 1 applic 1 applic PRN PRN TOP WOUND CARE; Start 12/07/16 at 11:00 Linezolid 300 ml @ 300 mls/hr Q12 IVPB Last administered on 12/07/16 22:37; Admin Dose 300 MLS/HR; Start 12/07/16 at 13:30 Imipenem/ Cilastatin Sodium (Primaxin 500 Mg/ 100 ml (Pmx)) 100 ml @ 100 mls/ hr Q12 IVPB Last administered on 12/08/16 08:15; Admin Dose 100 MLS/HR; Start 12/07/16 at 14:00 Acetaminophen (Tylenol Liquid) 500 mg Q4H PRN GTB PAIN AND OR ELEVATED TEMP Last administered on 12/07/16 18:07; Admin Dose 500 MG; Start 12/07/16 at 18:00 Insulin Aspart NOVOLOG *MILD* ALGORITHM Q6 SC Last administered on 12/08/16 06 :18; Admin Dose 3 UNIT; Start 12/08/16 at 00:00 Norepinephrine 250 ml @ 1.875 mls/ hr TITRATE IV Last administered on 00:19; Admin Dose 3.75 MLS/HR; Start 12/08/16 at 00:00 Norepinephrine 16 mg/Dextrose 500 ml @ 1.87 mls/hr TITRATE IV ; Start 12/07/16 at 23:45 Sodium Chloride (1/2 NS) 1,000 ml @ 120 mls/hr Q8H20M IV Last administered on 12/08/16 08:18; Admin Dose 120 MLS/HR; Start 12/08/16 at 08:00 JULIAN EASON NP Dec 08, 2016 08:56
[2016-12-08] MEDS: LINEZOLID 600 MG/D5W (PMX) 300 ML IVPB SCH ×2 (09:36→21:17)
[2016-12-08 10:02] LABS: ANISOCYTOSIS FEW; EOSINOPHILS # 0.6 10^3/ul (0.0-0.5); LYMPHOCYTES # 0.4 10^3/ul (0.8-2.9); MONOCYTE # 0.1 10^3/ul (0.3-0.9); NEUTROPHIL # 11.7 10^3/ul (1.6-7.5)
[2016-12-08 10:03] LABS: PLATELET ESTIMATE PLT APPEAR ADEQUATE
[2016-12-08] MEDS: ACETAMINOPHEN 650MG/20.3ML CUP GTB PRN ×2 (11:08→20:08)
--- NOTE | 2016-12-08 11:58 | CONS ---
Date/Time of Note Date/Time of Note DATE: 12/08/16 TIME: 11:54 Consult Date/Type/Reason Admit Date/Time Dec 06, 2016 at 17:18 Initial Consult Date Type of Consultation: Pulm/CCM Subjective Transferred to ICU for hypotension requiring pressors. Objective Vital Signs Date Time Temp Pulse Resp B/P Pulse Ox O2 Delivery O2 Flow Rate FiO2 12/08/16 11:46 98.7 39 12/08/16 08:30 85 94/56 96 12/08/16 06:00 Mechanical Ventilator 12/08/16 05:20 50 Intake and Output 12/07/16 12/07/16 12/08/16 15:00 23:00 07:00 Intake Total 1000 ml 2380 ml 2369.35 ml Output Total 2050 ml 825 ml Balance 1000 ml 330 ml 1544.35 ml Exam HEENT: Normocephalic, atraumatic. NECK: No thyromegaly, no jugular venous distention. CARDIOVASCULAR: Irregular. S1, S2. A I/ systolic murmur heard at the apex. CHEST: Coarse breath sounds and rhonchi, right greater than left. ABDOMEN: G-tube site is clear. distended. EXTREMITIES: Contracted. Results/Medications Result Diagram: 12/08/16 0400 12/08/16 0400 Results 24 hrs Laboratory Tests Test 12/07/16 12:15 12/07/16 15:28 12/07/16 17:52 12/07/16 21:00 White Blood Count 10.7 Red Blood Count 2.29 L Hemoglobin 6.8 *L Hematocrit 23.9 L Mean Corpuscular Volume 104.4 H Mean Corpuscular Hemoglobin 29.7 Mean Corpuscular Hemoglobin Concent 28.5 L Red Cell Distribution Width 21.5 H Platelet Count 143 Mean Platelet Volume 13.3 H Neutrophils % 83.3 H Lymphocytes % 3.9 L Monocytes % 4.1 Eosinophils % 7.0 Basophils % 0.0 Nucleated Red Blood Cells % 0.0 Neutrophils # 8.9 H Lymphocytes # 0.4 L Monocytes # 0.4 Eosinophils # 0.8 H Basophils # 0.0 Nucleated Red Blood Cells # 0.0 Sodium Level 170 *H 169 *H Potassium Level 3.6 3.6 Chloride Level 139 H 133 H Carbon Dioxide Level 24 22 Anion Gap 11 # 18 #H Blood Urea Nitrogen 200 H 202 H Creatinine 3.81 H 3.60 H Glucose Level 126 121 Calcium Level 9.2 8.8 Bedside Glucose 178 150 Test 12/07/16 21:59 12/08/16 00:20 12/08/16 04:00 12/08/16 05:00 Bedside Glucose 139 173 White Blood Count 13.8 #H Red Blood Count 3.01 #L Hemoglobin 8.6 #L Hematocrit 29.4 #L Mean Corpuscular Volume 97.7 Mean Corpuscular Hemoglobin 28.6 L Mean Corpuscular Hemoglobin Concent 29.3 L Red Cell Distribution Width 23.3 H Platelet Count 141 Mean Platelet Volume 13.9 H Neutrophils % 85.0 H Band Neutrophils % 7.0 H Lymphocytes % 3.0 L Monocytes % 1.0 Eosinophils % 4.0 Neutrophils # 11.7 H Lymphocytes # 0.4 L Monocytes # 0.1 L Eosinophils # 0.6 H Platelet Estimate PLT APPEAR ADEQUATE Anisocytosis FEW Sodium Level 169 *H Potassium Level 3.2 L Chloride Level 132 H Carbon Dioxide Level 23 Anion Gap 17 H Blood Urea Nitrogen 180 H Creatinine 3.62 H Glucose Level 199 Lactic Acid Level 1.4 Calcium Level 9.1 Phosphorus Level 4.6 Magnesium Level 2.9 H Blood Gas Specimen Source Blood arterial Arterial Blood Date Drawn 12/08/2016 4:15:32 AM Arterial Blood pH (Temp corrected) 7.400 Arterial Blood pCO2 (Temp correct) 33.3 L Arterial Blood pO2 (Temp corrected) 90.8 H Arterial Blood HCO3 20.2 L Arterial Blood Base Excess -4.0 L Arterial Blood Oxygen Saturation 96.1 Pedro Test ACCEPTAB Arterial Blood Gas Puncture Site Right Radial Arterial Blood Carboxyhemoglobin 0.3 Arterial Blood Methemoglobin 0.5 Blood Gas A-a O2 Differential 300.4 H Oxyhemoglobin Percent 95.3 Total Hemoglobin 9.6 L Blood Gas Temperature 37.0 Blood Gas Respiration Rate 16.0 Blood Gas Actual Respiration Rate 16 Blood Gas Modality VENT - AC FiO2 60.0 Blood Gas Tidal Volume 500.0 Blood Gas Low PEEP Setting 5.0 Blood Gas Notified Whom MM Blood Gas Notified Time 12/08/2016 4:49:45 AM Test 12/08/16 06:14 12/08/16 11:45 Bedside Glucose 221 H 199 Medications Current Medications Ondansetron HCl (Zofran Inj) 4 mg Q6H PRN IV NAUSEA AND/OR VOMITING; Start at 18:00 Morphine Sulfate (morphine) 2 mg Q4H PRN IV PAIN LEVEL 7-10; Start 12/06/16 at 18:00 Pantoprazole (Protonix Iv) 40 mg BID@06,18 IV Last administered on 12/08/16 06 :12; Admin Dose 40 MG; Start 12/06/16 at 18:00 Amiodarone HCl (Cordarone) 200 mg DAILY GTB ; Start 12/07/16 at 09:00 Ascorbic Acid (Vitamin C) 500 mg DAILY GTB Last administered on 12/08/16 08:15 ; Admin Dose 500 MG; Start 12/07/16 at 09:00 Cholecalciferol (Vitamin D) 1,000 unit DAILY GTB Last administered on 08:15; Admin Dose 1,000 UNIT; Start 12/07/16 at 09:00 Eye Lubricant (Artificial Tears Oph) 2 drop BID BOTH EYES Last administered on 12/08/16 08:15; Admin Dose 2 DROP; Start 12/06/16 at 21:00 Zinc Sulfate (Zinc Sulfate) 220 mg DAILY GTB Last administered on 12/08/16 08: 15; Admin Dose 220 MG; Start 12/07/16 at 09:00 Insulin Glargine (Lantus) 6 unit DAILY@20 SC Last administered on 12/07/16 22: 02; Admin Dose 6 UNIT; Start 12/06/16 at 20:00 Miscellaneous Information 1 ea NOTE XX ; Start 12/06/16 at 19:00 Glucose (Glutose) 15 gm Q15M PRN PO DECREASED GLUCOSE; Start 12/06/16 at 19:00 Glucose (Glutose) 22.5 gm Q15M PRN PO DECREASED GLUCOSE; Start 12/06/16 at 19: 00 Dextrose (D50w Syringe) 25 ml Q15M PRN IV DECREASED GLUCOSE; Start 12/06/16 at 19:00 Dextrose (D50w Syringe) 50 ml Q15M PRN IV DECREASED GLUCOSE; Start 12/06/16 at 19:00 Glucagon (Glucagen) 1 mg Q15M PRN IM DECREASED GLUCOSE; Start 12/06/16 at 19:00 Glucose (Glutose) 15 gm Q15M PRN BUCCAL DECREASED GLUCOSE; Start 12/06/16 at 19 :00 Ferrous Sulfate (Feosol Liquid Cup) 300 mg DAILY GTB Last administered on 08:14; Admin Dose 300 MG; Start 12/07/16 at 09:00 Collagenase (Santyl) 1 applic DAILY TOP Last administered on 12/07/16 15:31; Admin Dose 1 APPLIC; Start 12/07/16 at 11:30 Collagenase 1 applic 1 applic PRN PRN TOP WOUND CARE; Start 12/07/16 at 11:00 Linezolid 300 ml @ 300 mls/hr Q12 IVPB Last administered on 12/08/16 09:36; Admin Dose 300 MLS/HR; Start 12/07/16 at 13:30 Imipenem/ Cilastatin Sodium (Primaxin 500 Mg/ 100 ml (Pmx)) 100 ml @ 100 mls/ hr Q12 IVPB Last administered on 12/08/16 08:15; Admin Dose 100 MLS/HR; Start 12/07/16 at 14:00 Acetaminophen (Tylenol Liquid) 500 mg Q4H PRN GTB PAIN AND OR ELEVATED TEMP Last administered on 12/08/16 11:08; Admin Dose 500 MG; Start 12/07/16 at 18:00 Insulin Aspart NOVOLOG *MILD* ALGORITHM Q6 SC Last administered on 12/08/16 11 :49; Admin Dose 2 UNIT; Start 12/08/16 at 00:00 Norepinephrine 250 ml @ 1.875 mls/ hr TITRATE IV Last administered on 00:19; Admin Dose 3.75 MLS/HR; Start 12/08/16 at 00:00 Norepinephrine 16 mg/Dextrose 500 ml @ 1.87 mls/hr TITRATE IV ; Start 12/07/16 at 23:45 Sodium Chloride (1/2 NS) 1,000 ml @ 120 mls/hr Q8H20M IV Last administered on 12/08/16 08:18; Admin Dose 120 MLS/HR; Start 12/08/16 at 08:00 Acetaminophen (Tylenol Tab) 650 mg Q6H PRN GTB PAIN AND OR ELEVATED TEMP; Start 12/08/16 at 11:00 Assessment/Plan Additional Assessment/Plan IMPRESSION: 1. Septic Shock, likely secondary to urosepsis. 2. Acute on chronic kidney disease. 3. Hypernatremia with severe free water deficit. 4. Chronic vent-dependent respiratory failure. 5. Encephalopathy. RECOMMENDATIONS: 1. IVF's; titrate levophed gtt to MAP > 65 mm Hg 2. Follow up blood cultures and urine cultures. 3. Antibiotics per ID with plans to de-escalate pending cultures. 4. Free H2O repletion 5. We will follow serum creatinine closely, as well as electrolytes. 35 min cc time CLEM AGUILAR MD Dec 08, 2016 11:58
--- NOTE | 2016-12-08 12:26 | PN ---
Date/Time of Note Date/Time of Note DATE: 12/08/16 TIME: 12:10 Assessment/Plan VTE Prophylaxis VTE Prophylaxis Intervention: SCD's Lines/Catheters IV Catheter Type (from Nrs): Central Line Central line still needed: Yes Urinary Cath still in place: Yes Reason Cath still needed: urinary retention Assessment/Plan Assessment/Plan Severe recurrent anemia * Ventilator-dependent respiratory failure * Distal esophagitis, duodenitis, gastric ulcers * Diabetes mellitus * Chronic kidney disease * Cardiac arrhythmia * Decubitus pressure ulcers * Right kidney mass. Hypernatremia Plan * Continue present regimen * correct hypernatremia * PPI therapy * EGD 12/09/2016 risk and benefit explain to family and agreed with the planned procedure Subjective 24 Hr Interval Summary Free Text/Dictation * Course reviewed with RN * patient seen and examined * off pressors * Hemoglobin 8.6 * Na 169 * tolerating tube feeding Exam/Review of Systems Vital Signs Vitals Vital Signs Date Time Temp Pulse Resp B/P Pulse Ox O2 Delivery O2 Flow Rate FiO2 12/08/16 11:46 98.7 39 12/08/16 08:30 85 94/56 96 12/08/16 06:00 Mechanical Ventilator 12/08/16 05:20 50 Intake and Output 12/07/16 12/07/16 12/08/16 15:00 23:00 07:00 Intake Total 1000 ml 2380 ml 2369.35 ml Output Total 2050 ml 825 ml Balance 1000 ml 330 ml 1544.35 ml Exam Constitutional: frail Head: normocephalic Eyes: PERRL, nl sclera Neck: non-tender, supple Respiratory: clear to auscultation, diminished breath sounds, normal air movement, other (on ventilator) Cardiovascular: nl pulses, regular rate and rhythm Gastrointestinal: bowel sounds, non-tender, other (g tube in placed), soft, No rebound or guarding Genitourinary - Male: other (cody catheter) Extremities: normal pulses Results Result Diagram: 12/08/16 0400 12/08/16 0400 Results 24 hrs Laboratory Tests Test 12/07/16 12:15 12/07/16 15:28 12/07/16 17:52 12/07/16 21:00 White Blood Count 10.7 Red Blood Count 2.29 L Hemoglobin 6.8 *L Hematocrit 23.9 L Mean Corpuscular Volume 104.4 H Mean Corpuscular Hemoglobin 29.7 Mean Corpuscular Hemoglobin Concent 28.5 L Red Cell Distribution Width 21.5 H Platelet Count 143 Mean Platelet Volume 13.3 H Neutrophils % 83.3 H Lymphocytes % 3.9 L Monocytes % 4.1 Eosinophils % 7.0 Basophils % 0.0 Nucleated Red Blood Cells % 0.0 Neutrophils # 8.9 H Lymphocytes # 0.4 L Monocytes # 0.4 Eosinophils # 0.8 H Basophils # 0.0 Nucleated Red Blood Cells # 0.0 Sodium Level 170 *H 169 *H Potassium Level 3.6 3.6 Chloride Level 139 H 133 H Carbon Dioxide Level 24 22 Anion Gap 11 # 18 #H Blood Urea Nitrogen 200 H 202 H Creatinine 3.81 H 3.60 H Glucose Level 126 121 Calcium Level 9.2 8.8 Bedside Glucose 178 150 Test 12/07/16 21:59 12/08/16 00:20 12/08/16 04:00 12/08/16 05:00 Bedside Glucose 139 173 White Blood Count 13.8 #H Red Blood Count 3.01 #L Hemoglobin 8.6 #L Hematocrit 29.4 #L Mean Corpuscular Volume 97.7 Mean Corpuscular Hemoglobin 28.6 L Mean Corpuscular Hemoglobin Concent 29.3 L Red Cell Distribution Width 23.3 H Platelet Count 141 Mean Platelet Volume 13.9 H Neutrophils % 85.0 H Band Neutrophils % 7.0 H Lymphocytes % 3.0 L Monocytes % 1.0 Eosinophils % 4.0 Neutrophils # 11.7 H Lymphocytes # 0.4 L Monocytes # 0.1 L Eosinophils # 0.6 H Platelet Estimate PLT APPEAR ADEQUATE Anisocytosis FEW Sodium Level 169 *H Potassium Level 3.2 L Chloride Level 132 H Carbon Dioxide Level 23 Anion Gap 17 H Blood Urea Nitrogen 180 H Creatinine 3.62 H Glucose Level 199 Lactic Acid Level 1.4 Calcium Level 9.1 Phosphorus Level 4.6 Magnesium Level 2.9 H Blood Gas Specimen Source Blood arterial Arterial Blood Date Drawn 12/08/2016 4:15:32 AM Arterial Blood pH (Temp corrected) 7.400 Arterial Blood pCO2 (Temp correct) 33.3 L Arterial Blood pO2 (Temp corrected) 90.8 H Arterial Blood HCO3 20.2 L Arterial Blood Base Excess -4.0 L Arterial Blood Oxygen Saturation 96.1 Pedro Test ACCEPTAB Arterial Blood Gas Puncture Site Right Radial Arterial Blood Carboxyhemoglobin 0.3 Arterial Blood Methemoglobin 0.5 Blood Gas A-a O2 Differential 300.4 H Oxyhemoglobin Percent 95.3 Total Hemoglobin 9.6 L Blood Gas Temperature 37.0 Blood Gas Respiration Rate 16.0 Blood Gas Actual Respiration Rate 16 Blood Gas Modality VENT - AC FiO2 60.0 Blood Gas Tidal Volume 500.0 Blood Gas Low PEEP Setting 5.0 Blood Gas Notified Whom MM Blood Gas Notified Time 12/08/2016 4:49:45 AM Test 12/08/16 06:14 12/08/16 11:45 Bedside Glucose 221 H 199 Medications Medications Current Medications Ondansetron HCl (Zofran Inj) 4 mg Q6H PRN IV NAUSEA AND/OR VOMITING; Start at 18:00 Morphine Sulfate (morphine) 2 mg Q4H PRN IV PAIN LEVEL 7-10; Start 12/06/16 at 18:00 Pantoprazole (Protonix Iv) 40 mg BID@06,18 IV Last administered on 12/08/16 06 :12; Admin Dose 40 MG; Start 12/06/16 at 18:00 Amiodarone HCl (Cordarone) 200 mg DAILY GTB ; Start 12/07/16 at 09:00 Ascorbic Acid (Vitamin C) 500 mg DAILY GTB Last administered on 12/08/16 08:15 ; Admin Dose 500 MG; Start 12/07/16 at 09:00 Cholecalciferol (Vitamin D) 1,000 unit DAILY GTB Last administered on 08:15; Admin Dose 1,000 UNIT; Start 12/07/16 at 09:00 Eye Lubricant (Artificial Tears Oph) 2 drop BID BOTH EYES Last administered on 12/08/16 08:15; Admin Dose 2 DROP; Start 12/06/16 at 21:00 Zinc Sulfate (Zinc Sulfate) 220 mg DAILY GTB Last administered on 12/08/16 08: 15; Admin Dose 220 MG; Start 12/07/16 at 09:00 Insulin Glargine (Lantus) 6 unit DAILY@20 SC Last administered on 12/07/16 22: 02; Admin Dose 6 UNIT; Start 12/06/16 at 20:00 Miscellaneous Information 1 ea NOTE XX ; Start 12/06/16 at 19:00 Glucose (Glutose) 15 gm Q15M PRN PO DECREASED GLUCOSE; Start 12/06/16 at 19:00 Glucose (Glutose) 22.5 gm Q15M PRN PO DECREASED GLUCOSE; Start 12/06/16 at 19: 00 Dextrose (D50w Syringe) 25 ml Q15M PRN IV DECREASED GLUCOSE; Start 12/06/16 at 19:00 Dextrose (D50w Syringe) 50 ml Q15M PRN IV DECREASED GLUCOSE; Start 12/06/16 at 19:00 Glucagon (Glucagen) 1 mg Q15M PRN IM DECREASED GLUCOSE; Start 12/06/16 at 19:00 Glucose (Glutose) 15 gm Q15M PRN BUCCAL DECREASED GLUCOSE; Start 12/06/16 at 19 :00 Ferrous Sulfate (Feosol Liquid Cup) 300 mg DAILY GTB Last administered on 08:14; Admin Dose 300 MG; Start 12/07/16 at 09:00 Collagenase (Santyl) 1 applic DAILY TOP Last administered on 12/07/16 15:31; Admin Dose 1 APPLIC; Start 12/07/16 at 11:30 Collagenase 1 applic 1 applic PRN PRN TOP WOUND CARE; Start 12/07/16 at 11:00 Linezolid 300 ml @ 300 mls/hr Q12 IVPB Last administered on 12/08/16 09:36; Admin Dose 300 MLS/HR; Start 12/07/16 at 13:30 Imipenem/ Cilastatin Sodium (Primaxin 500 Mg/ 100 ml (Pmx)) 100 ml @ 100 mls/ hr Q12 IVPB Last administered on 12/08/16 08:15; Admin Dose 100 MLS/HR; Start 12/07/16 at 14:00 Acetaminophen (Tylenol Liquid) 500 mg Q4H PRN GTB PAIN AND OR ELEVATED TEMP Last administered on 12/08/16 11:08; Admin Dose 500 MG; Start 12/07/16 at 18:00 Insulin Aspart NOVOLOG *MILD* ALGORITHM Q6 SC Last administered on 12/08/16 11 :49; Admin Dose 2 UNIT; Start 12/08/16 at 00:00 Norepinephrine 250 ml @ 1.875 mls/ hr TITRATE IV Last administered on 00:19; Admin Dose 3.75 MLS/HR; Start 12/08/16 at 00:00 Norepinephrine 16 mg/Dextrose 500 ml @ 1.87 mls/hr TITRATE IV ; Start 12/07/16 at 23:45 Sodium Chloride (1/2 NS) 1,000 ml @ 120 mls/hr Q8H20M IV Last administered on 12/08/16t 08:18; Admin Dose 120 MLS/HR; Start 12/08/16 at 08:00 Acetaminophen (Tylenol Tab) 650 mg Q6H PRN GTB PAIN AND OR ELEVATED TEMP; Start 12/08/16 at 11:00 LUCIO LEWIS MD Dec 08, 2016 12:20
[2016-12-08] MEDS ORDERED: SOD CHLORIDE 0.9% 500 ML IV ONE (13:30)
[2016-12-08 13:53] LABS: POTASSIUM 3.3 mmol/L (3.5-5.1)
[2016-12-08 13:56] LABS: CREATININE 3.54 mg/dl (0.61-1.24)
[2016-12-08 13:57] LABS: CALCIUM 8.8 mg/dl (8.4-10.2)
--- NOTE | 2016-12-08 19:38 | CONS ---
Date/Time of Note Date/Time of Note DATE: 12/08/16 TIME: 19:31 Assessment/Plan Assessment/Plan Chief Complaint/Hosp Course ID PROGRESS NOTE TOTAL ABX DAY #3 =>Zyvox + Primaxin s/p Vanco IV + Cefepime 24H INTERVAL SUMMARY * (+)GPC BCx & (+)GNR Urine * Spiked temp this am 102.4 * Non-communicative,Frail, thin, chronic debilitated 71 yo M, Vented, somnolent CASE REVIEW 71 yo M w/MMP chronic debility/VDRF w/Trach & Peg, known to Dr. Tanner's ID team consultants readmitted 12/06/16 with acute renal failure, sepsis due to UTI /HCAP. * 12/06/16 CXR: IMPRESSION:1. tracheostomy tube in good position. 2. New right lower lobe pneumonia. 3. Atherosclerotic aortic calcification * 12/06/16 UA: (+) Pyuria w/3+ Leuk Esterase, > 200 WBCs, RBCs 5 to 10, and +2 proteinuria. * Tmax 99.0 w/WBC 13.4 on admission, down today, recurrent anemia * INFECTIOUS DISEASE HISTORY: (+)MRSA BCx 10/30/16; (+)PSAR UTI = MDR sensitive to Amikacin & Primaxin, intermediate to Cefepime/Fortaz * Hx of ABD wall cellulitis and multiple infected decubs PHYSICAL EXAMINATION: GENERAL: 71 yo M w/chronic encephalopathy, VDRF HEENT: Head DSG, NGT secure NECK: Trached-> Vented CHEST: Rise symmetrical= Vented HEART: RRR ABDOMEN: Soft, peg, abd wall healing = Colostomy bag EXTREMITIES: Warm SKIN: Decubs, unstageable ID ASSESSMENT: 71 yo M w/chronic debility 2/2 multiple medical problems re-admitted with: 1. SIRS w/low grade temperatures, leukocytosis -> due to #2 #3 2. HCAP => Aspiration PNA w/new right sided pulmonary infiltrate on CXR * Repeat respiratory cx pending * AUG 2016 RESP CX: Polymicrobial (+)MRSA/(+)Proteus Mirabilis/(+) ACHROMOBACTER SPECIES 3. Complicated UTI w/Pyuria on UA =12/06/16 UA: (+) Pyuria w/3+ Leuk Esterase, > 200 WBCs, RBCs 5 to 10, and +2 proteinuria. * S/P 10/30/16 PSAR MDRO UTI sensitive to Amikacin & Primaxin 4. 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 Acute renal failure/CKD * Right kidney mass of unknown significance 6. GERD w/ prior EDG (+)distal esophagitis, duodenitis, gastric ulcers, dysphagia 7. Hx of cardiac arrhythmia 8. Hx of unstageable sacral wound * Prior wound Cx grew: MRSA, VRE, KP, GNR Proteus 9. Hx of ABD wall cellulitis prior admission due to GT leak 7. Hx of empiric Rx for scabies rash prior admission 8. Hx of MRSA PICC Line sepsis 10/30/16 INVASIVES: * PIV, Trach, PEG, FC CURRENT ABX: TOTAL ABX DAY #3 =>Zyvox + Primaxin Vanco IV + Cefepime PRIOR ADMISSION: Zyvox, Levaquin, Cefepime ID RECOMMENDATIONS: => Avoid renal toxic meds 1. Patient has hx of VRE wounds & MDRO PSAR that was sensitive to Primaxin; NOW with VERITO. * Started Zyvox and Primaxin for improved MDRO ABX coverage that is also renal safe. 2. Continue ABX = await final micro pending 3. Per notes EGD pending . . Problems: Consultation Date/Type/Reason Admit Date/Time Dec 06, 2016 at 17:18 Type of Consultation: ID Exam/Review of Systems Vital Signs Vitals Vital Signs Date Time Temp Pulse Resp B/P Pulse Ox O2 Delivery O2 Flow Rate FiO2 12/08/16 18:00 72 27 100/61 97 12/08/16 17:30 50 12/08/16 16:00 99.4 12/08/16 06:00 Mechanical Ventilator Intake and Output 12/07/16 12/07/16 12/08/16 15:00 23:00 07:00 Intake Total 1000 ml 2380 ml 2369.35 ml Output Total 2050 ml 825 ml Balance 1000 ml 330 ml 1544.35 ml Results Result Diagram: 12/08/16 0400 12/08/16 1330 Results 24 hrs Laboratory Tests Test 12/07/16 21:00 12/07/16 21:59 12/08/16 00:20 12/08/16 04:00 Sodium Level 169 *H 169 *H Potassium Level 3.6 3.2 L Chloride Level 133 H 132 H Carbon Dioxide Level 22 23 Anion Gap 18 #H 17 H Blood Urea Nitrogen 202 H 180 H Creatinine 3.60 H 3.62 H Glucose Level 121 199 Calcium Level 8.8 9.1 Bedside Glucose 139 173 White Blood Count 13.8 #H Red Blood Count 3.01 #L Hemoglobin 8.6 #L Hematocrit 29.4 #L Mean Corpuscular Volume 97.7 Mean Corpuscular Hemoglobin 28.6 L Mean Corpuscular Hemoglobin Concent 29.3 L Red Cell Distribution Width 23.3 H Platelet Count 141 Mean Platelet Volume 13.9 H Neutrophils % 85.0 H Band Neutrophils % 7.0 H Lymphocytes % 3.0 L Monocytes % 1.0 Eosinophils % 4.0 Neutrophils # 11.7 H Lymphocytes # 0.4 L Monocytes # 0.1 L Eosinophils # 0.6 H Platelet Estimate PLT APPEAR ADEQUATE Anisocytosis FEW Lactic Acid Level 1.4 Phosphorus Level 4.6 Magnesium Level 2.9 H Test 12/08/16 05:00 12/08/16 06:14 12/08/16 11:45 12/08/16 13:30 Blood Gas Specimen Source Blood arterial Arterial Blood Date Drawn 12/08/2016 4:15:32 AM Arterial Blood pH (Temp corrected) 7.400 Arterial Blood pCO2 (Temp correct) 33.3 L Arterial Blood pO2 (Temp corrected) 90.8 H Arterial Blood HCO3 20.2 L Arterial Blood Base Excess -4.0 L Arterial Blood Oxygen Saturation 96.1 Pedro Test ACCEPTAB Arterial Blood Gas Puncture Site Right Radial Arterial Blood Carboxyhemoglobin 0.3 Arterial Blood Methemoglobin 0.5 Blood Gas A-a O2 Differential 300.4 H Oxyhemoglobin Percent 95.3 Total Hemoglobin 9.6 L Blood Gas Temperature 37.0 Blood Gas Respiration Rate 16.0 Blood Gas Actual Respiration Rate 16 Blood Gas Modality VENT - AC FiO2 60.0 Blood Gas Tidal Volume 500.0 Blood Gas Low PEEP Setting 5.0 Blood Gas Notified Whom MM Blood Gas Notified Time 12/08/2016 4:49:45 AM Bedside Glucose 221 H 199 Sodium Level 167 *H Potassium Level 3.3 L Chloride Level 132 H Carbon Dioxide Level 22 Anion Gap 16 Blood Urea Nitrogen 165 H Creatinine 3.54 H Glucose Level 174 Calcium Level 8.8 Test 12/08/16 17:33 Bedside Glucose 179 Medications Medications Current Medications Ondansetron HCl (Zofran Inj) 4 mg Q6H PRN IV NAUSEA AND/OR VOMITING; Start at 18:00 Morphine Sulfate (morphine) 2 mg Q4H PRN IV PAIN LEVEL 7-10; Start 12/06/16 at 18:00 Pantoprazole (Protonix Iv) 40 mg BID@06,18 IV Last administered on 12/08/16 17 :51; Admin Dose 40 MG; Start 12/06/16 at 18:00 Amiodarone HCl (Cordarone) 200 mg DAILY GTB ; Start 12/07/16 at 09:00 Ascorbic Acid (Vitamin C) 500 mg DAILY GTB Last administered on 12/08/16 08:15 ; Admin Dose 500 MG; Start 12/07/16 at 09:00 Cholecalciferol (Vitamin D) 1,000 unit DAILY GTB Last administered on 08:15; Admin Dose 1,000 UNIT; Start 12/07/16 at 09:00 Eye Lubricant (Artificial Tears Oph) 2 drop BID BOTH EYES Last administered on 12/08/16 08:15; Admin Dose 2 DROP; Start 12/06/16 at 21:00 Zinc Sulfate (Zinc Sulfate) 220 mg DAILY GTB Last administered on 12/08/16 08: 15; Admin Dose 220 MG; Start 12/07/16 at 09:00 Insulin Glargine (Lantus) 6 unit DAILY@20 SC Last administered on 12/07/16 22: 02; Admin Dose 6 UNIT; Start 12/06/16 at 20:00 Miscellaneous Information 1 ea NOTE XX ; Start 12/06/16 at 19:00 Glucose (Glutose) 15 gm Q15M PRN PO DECREASED GLUCOSE; Start 12/06/16 at 19:00 Glucose (Glutose) 22.5 gm Q15M PRN PO DECREASED GLUCOSE; Start 12/06/16 at 19: 00 Dextrose (D50w Syringe) 25 ml Q15M PRN IV DECREASED GLUCOSE; Start 12/06/16 at 19:00 Dextrose (D50w Syringe) 50 ml Q15M PRN IV DECREASED GLUCOSE; Start 12/06/16 at 19:00 Glucagon (Glucagen) 1 mg Q15M PRN IM DECREASED GLUCOSE; Start 12/06/16 at 19:00 Glucose (Glutose) 15 gm Q15M PRN BUCCAL DECREASED GLUCOSE; Start 12/06/16 at 19 :00 Ferrous Sulfate (Feosol Liquid Cup) 300 mg DAILY GTB Last administered on 08:14; Admin Dose 300 MG; Start 12/07/16 at 09:00 Collagenase (Santyl) 1 applic DAILY TOP Last administered on 12/07/16 15:31; Admin Dose 1 APPLIC; Start 12/07/16 at 11:30 Collagenase 1 applic 1 applic PRN PRN TOP WOUND CARE; Start 12/07/16 at 11:00 Linezolid 300 ml @ 300 mls/hr Q12 IVPB Last administered on 12/08/16 09:36; Admin Dose 300 MLS/HR; Start 12/07/16 at 13:30 Imipenem/ Cilastatin Sodium (Primaxin 500 Mg/ 100 ml (Pmx)) 100 ml @ 100 mls/ hr Q12 IVPB Last administered on 12/08/16 08:15; Admin Dose 100 MLS/HR; Start 12/07/16 at 14:00 Acetaminophen (Tylenol Liquid) 500 mg Q4H PRN GTB PAIN AND OR ELEVATED TEMP Last administered on 12/08/16 11:08; Admin Dose 500 MG; Start 12/07/16 at 18:00 Insulin Aspart NOVOLOG *MILD* ALGORITHM Q6 SC Last administered on 12/08/16 17 :52; Admin Dose 1 UNIT; Start 12/08/16 at 00:00 Norepinephrine 16 mg/Dextrose 500 ml @ 1.87 mls/hr TITRATE IV ; Start 12/07/16 at 23:45 Sodium Chloride (1/2 NS) 1,000 ml @ 150 mls/hr Q6H40M IV Last administered on 12/08/16 18:10; Admin Dose 120 MLS/HR; Start 12/08/16 at 08:00 Acetaminophen 650 mg 650 mg Q6H PRN GTB PAIN AND OR ELEVATED TEMP; Start at 11:00 Norepinephrine/ Dextrose (Levophed/D5W) 500 ml @ 1.87 mls/hr TITRATE IV ; Start 12/08/16 at 15:00 ERIC LIN NP Dec 08, 2016 19:38
[2016-12-08] MEDS: INSULIN GLARGINE [LANtus] 3 ML PEN SC SCH (20:08)
[2016-12-08 22:35] LABS: CALCIUM 8.7 mg/dl (8.4-10.2); CREATININE 3.21 mg/dl (0.61-1.24); POTASSIUM 3.3 mmol/L (3.5-5.1)
[2016-12-09] VITALS (100 sets, daily range): BP systolic 84–122; BP diastolic 51–78; PULSE 64–77; RESP 13–34
[2016-12-09] MEDS: INSULIN ASPART [NOVOLOG] 3 ML PEN SC SCH ×4 (00:39→17:47)
[2016-12-09] MEDS: ALBUTEROL 18 GM INHALER INH SCH ×4 (01:24→20:26)
[2016-12-09 04:38] LABS: AADO2 Arterial 198.8 mmHg (7.0-24.0); Allen Test ACCEPTAB; Arterial COHb 0.3 % (0.0-3.0); Arterial Fraction of Oxyhgb 96.4 % (93.0-99.0); Arterial HCO3 19.7 mmol/L (22.0-26.0); Arterial MetHb 0.8 % (0.0-1.5); MODE VENT - AC
[2016-12-09 04:47] LABS: ADD SCAN DIFF NO
[2016-12-09 04:52] LABS: ABNORMAL IP MESSAGE 1; BASOPHILS % 0.2 % (0.0-2.0); EOSINOPHILS # 0.7 10^3/ul (0.0-0.5); EOSINOPHILS % 5.9 % (0.0-7.0); HEMATOCRIT 25.9 % (42.0-52.0); HEMOGLOBIN 7.7 g/dl (14.0-18.0); LYMPHOCYTES # 0.5 10^3/ul (0.8-2.9); LYMPHOCYTES % 4.3 % (15.0-51.0); MEAN CORPUSCULAR HEMOGLOBIN 28.7 pg (29.0-33.0); MEAN CORPUSCULAR HGB CONC 29.7 g/dl (32.0-37.0); MEAN CORPUSCULAR VOLUME 96.6 fl (82.0-101.0); MEAN PLATELET VOLUME 13.3 fl (7.4-10.4); MONOCYTE # 0.4 10^3/ul (0.3-0.9); MONOCYTES % 3.3 % (0.0-11.0); NEUTROPHIL # 10.3 10^3/ul (1.6-7.5); NEUTROPHILS % 84.4 % (39.0-77.0); PLATELET COUNT 115 10^3/UL (140-415); RED BLOOD COUNT 2.68 10^6/ul (4.70-6.10); WHITE BLOOD COUNT 12.2 10^3/ul (4.8-10.8)
[2016-12-09] MEDS: PANTOPRAZOLE 40 MG INJ IV SCH ×2 (05:01→17:48)
[2016-12-09 05:04] LABS: CALCIUM 8.5 mg/dl (8.4-10.2); CREATININE 3.19 mg/dl (0.61-1.24); MAGNESIUM 2.5 mg/dl (1.7-2.5); PHOSPHORUS 4.1 mg/dl (2.5-4.9); POTASSIUM 3.2 mmol/L (3.5-5.1)
[2016-12-09] MEDS: SOD CHLORIDE 0.45% 1,000 ML IV SCH ×3 (05:06→17:47)
--- NOTE | 2016-12-09 08:02 | RADRPT ---
PROCEDURE: XR Chest. CLINICAL INDICATION: vent TECHNIQUE: Single frontal view of the chest was obtained. COMPARISON: Chest x-ray from 12/06/2016 FINDINGS: A tracheostomy is again noted. Heart size is unchanged. There is increased prominence of a consolidation with air bronchograms in the right mid to lower stefanie g zone as well as mildly increased congestive changes. There is a new small left pleural effusion with compressive left basilar atelectasis. IMPRESSION: Worsening consolidation in the right mid to lower lung zone. Mildly increased congestive changes. New small left pleural effusion. RPTAT: EE Physician Romain Date Time Electronically viewed and signed by Rafi Martinez Physician on 12/09/2016 08:02 /
--- NOTE | 2016-12-09 08:15 | PN ---
Date/Time of Note Date/Time of Note DATE: 12/09/16 TIME: 08:12 Assessment/Plan VTE Prophylaxis VTE Prophylaxis Intervention: contraindicated Lines/Catheters [facility] Central Line Central line still needed: Yes Urinary Cath still in place: Yes Reason Cath still needed: pres ulcer contaminated by urine Assessment/Plan Chief Complaint/Hosp Course 1. Sepsis with underlying gram-positive bacteremia secondary to underlying pneumonia and urinary tract infection with evidence of any septic shock. Continue antibiotics as per infectious diseases. On Levophed for blood pressure support. 2. [id number] kidney injury. Nephrotoxic drugs will be used with caution. Nephrology following. 3. Hypernatremia. The patient will be provided with free water through the G- tube. Nephrology following. The patient's sodium will be lowered gradually. 4. Type 2 diabetes. The patient will be continued on sliding scale insulin and basal insulin. Hemoglobin A1c pending. 5. Macrocytic anemia. Status post blood transfusion of multiple blood products. Gastroenterology following. Continue proton pump inhibitors. 6. History of cardiac arrhythmia. The patient is on amiodarone. Currently in sinus rhythm. 7. Multiple pressure ulcers. Wound care consult. The patient will be placed on a specialty mattress. 8. Chronic encephalopathy. The patient remains to be a FULL CODE. The patient is ventilator dependent. Palliative care consult called. 9. Ventilator dependent respiratory failure. The patient being followed by pulmonary. Ventilator management as per pulmonary. 10. Fluids, electrolytes, and nutrition. Continue G-tube feedings. 11. DVT prophylaxis. Contraindicated. 12. Gastrointestinal prophylaxis. Proton pump inhibitors. 13. Plan. Continue antibiotics. Replete potassium. Plan for esophagogastroduodenoscopy because of underlying anemia. Case discussed with Dr. Donald. Critical care time: 35 minutes. Problems: Subjective 24 Hr Interval Summary Free Text/Dictation The patient was restarted on pressors yesterday because of hypotension. Currently remains on pressors. Exam/Review of Systems Vital Signs Vitals Vital Signs Date Time Temp Pulse Resp B/P Pulse Ox O2 Delivery O2 Flow Rate FiO2 12/09/16 07:00 70 18 111/64 100 Mechanical Ventilator 12/09/16 05:45 40 12/09/16 04:00 99.0 Intake and Output 12/08/16 12/08/16 12/09/16 15:00 23:00 07:00 Intake Total 1080 ml 4097.50 ml 2369.375 ml Output Total 1800 ml 685 ml Balance 1080 ml 2297.50 ml 1684.375 ml Exam GENERAL: This is a frail-looking elderly male patient, lying in bed with a with a tracheostomy connected to mechanical ventilator. HEENT: Head normocephalic and atraumatic. Eyes: Anicteric sclerae. Conjunctivae clear. ENT: Nasal septum is midline. Oral mucosa is dry. NECK: The patient has a tracheostomy in place. Tracheostomy in the midline. RESPIRATORY: Bilaterally diminished breath sounds. Mechanically ventilated. CARDIAC: Regular rate and rhythm. S1, S2 heard. ABDOMEN: Scaphoid. Left upper quadrant G-tube in place. GENITOURINARY: The patient has a Lopez catheter in place. EXTREMITIES: Bilateral foot dressings over wounds. Trivial pretibial edema bilaterally. Pedal pulses palpable. NEUROLOGIC: The patient is obtunded. SKIN: Multiple pressure ulcers. Results Result Diagram: 12/09/16 0420 12/09/16 0420 Results 24 hrs Laboratory Tests Test 12/08/16 11:45 12/08/16 13:30 12/08/16 17:33 12/08/16 20:07 Bedside Glucose 199 179 171 Sodium Level 167 *H Potassium Level 3.3 L Chloride Level 132 H Carbon Dioxide Level 22 Anion Gap 16 Blood Urea Nitrogen 165 H Creatinine 3.54 H Glucose Level 174 Calcium Level 8.8 Test 12/08/16 22:15 12/09/16 00:22 12/09/16 04:20 12/09/16 05:00 Sodium Level 161 *H 160 H Potassium Level 3.3 L 3.2 L Chloride Level 133 H 132 H Carbon Dioxide Level 21 20 L Anion Gap 10 # 11 Blood Urea Nitrogen 148 H 136 H Creatinine 3.21 H 3.19 H Glucose Level 220 160 Calcium Level 8.7 8.5 Bedside Glucose 230 H White Blood Count 12.2 H Red Blood Count 2.68 L Hemoglobin 7.7 L Hematocrit 25.9 L Mean Corpuscular Volume 96.6 Mean Corpuscular Hemoglobin 28.7 L Mean Corpuscular Hemoglobin Concent 29.7 L Red Cell Distribution Width 21.0 H Platelet Count 115 L Mean Platelet Volume 13.3 H Neutrophils % 84.4 H Lymphocytes % 4.3 L Monocytes % 3.3 Eosinophils % 5.9 Basophils % 0.2 Nucleated Red Blood Cells % 0.0 Neutrophils # 10.3 H Lymphocytes # 0.5 L Monocytes # 0.4 Eosinophils # 0.7 H Basophils # 0.0 Nucleated Red Blood Cells # 0.0 Lactic Acid Level 1.5 Phosphorus Level 4.1 Magnesium Level 2.5 Blood Gas Specimen Source Blood arterial Arterial Blood Date Drawn 12/09/2016 4:31:47 AM Arterial Blood pH (Temp corrected) 7.376 Arterial Blood pCO2 (Temp correct) 34.3 L Arterial Blood pO2 (Temp corrected) 119.1 H Arterial Blood HCO3 19.7 L Arterial Blood Base Excess -5.0 L Arterial Blood Oxygen Saturation 97.5 Pedro Test ACCEPTAB Arterial Blood Gas Puncture Site Right Radial Arterial Blood Carboxyhemoglobin 0.3 Arterial Blood Methemoglobin 0.8 Blood Gas A-a O2 Differential 198.8 H Oxyhemoglobin Percent 96.4 Total Hemoglobin 7.0 L Blood Gas Temperature 37.0 Blood Gas Respiration Rate 16.0 Blood Gas Actual Respiration Rate 26 Blood Gas Modality VENT - AC FiO2 50.0 Blood Gas Tidal Volume 500.0 Blood Gas Low PEEP Setting 5.0 Blood Gas Inspiratory Pressure 26.0 Blood Gas Notified Whom BR Blood Gas Notified Time 12/09/2016 4:38:30 AM Test 12/09/16 05:03 Bedside Glucose 177 Medications Medications Current Medications Ondansetron HCl (Zofran Inj) 4 mg Q6H PRN IV NAUSEA AND/OR VOMITING; Start at 18:00 Morphine Sulfate (morphine) 2 mg Q4H PRN IV PAIN LEVEL 7-10; Start 12/06/16 at 18:00 Pantoprazole (Protonix Iv) 40 mg BID@06,18 IV Last administered on 12/09/16 05 :01; Admin Dose 40 MG; Start 12/06/16 at 18:00 Amiodarone HCl (Cordarone) 200 mg DAILY GTB ; Start 12/07/16 at 09:00 Ascorbic Acid (Vitamin C) 500 mg DAILY GTB Last administered on 12/08/16 08:15 ; Admin Dose 500 MG; Start 12/07/16 at 09:00 Cholecalciferol (Vitamin D) 1,000 unit DAILY GTB Last administered on 08:15; Admin Dose 1,000 UNIT; Start 12/07/16 at 09:00 Eye Lubricant (Artificial Tears Oph) 2 drop BID BOTH EYES Last administered on 12/08/16 20:09; Admin Dose 2 DROP; Start 12/06/16 at 21:00 Zinc Sulfate (Zinc Sulfate) 220 mg DAILY GTB Last administered on 12/08/16 08: 15; Admin Dose 220 MG; Start 12/07/16 at 09:00 Insulin Glargine (Lantus) 6 unit DAILY@20 SC Last administered on 12/08/16 20: 08; Admin Dose 6 UNIT; Start 12/06/16 at 20:00 Miscellaneous Information 1 ea NOTE XX ; Start 12/06/16 at 19:00 Glucose (Glutose) 15 gm Q15M PRN PO DECREASED GLUCOSE; Start 12/06/16 at 19:00 Glucose (Glutose) 22.5 gm Q15M PRN PO DECREASED GLUCOSE; Start 12/06/16 at 19: 00 Dextrose (D50w Syringe) 25 ml Q15M PRN IV DECREASED GLUCOSE; Start 12/06/16 at 19:00 Dextrose (D50w Syringe) 50 ml Q15M PRN IV DECREASED GLUCOSE; Start 12/06/16 at 19:00 Glucagon (Glucagen) 1 mg Q15M PRN IM DECREASED GLUCOSE; Start 12/06/16 at 19:00 Glucose (Glutose) 15 gm Q15M PRN BUCCAL DECREASED GLUCOSE; Start 12/06/16 at 19 :00 Ferrous Sulfate (Feosol Liquid Cup) 300 mg DAILY GTB Last administered on 08:14; Admin Dose 300 MG; Start 12/07/16 at 09:00 Collagenase (Santyl) 1 applic DAILY TOP Last administered on 12/07/16 15:31; Admin Dose 1 APPLIC; Start 12/07/16 at 11:30 Collagenase 1 applic 1 applic PRN PRN TOP WOUND CARE; Start 12/07/16 at 11:00 Linezolid 300 ml @ 300 mls/hr Q12 IVPB Last administered on 12/08/16 21:17; Admin Dose 300 MLS/HR; Start 12/07/16 at 13:30 Imipenem/ Cilastatin Sodium (Primaxin 500 Mg/ 100 ml (Pmx)) 100 ml @ 100 mls/ hr Q12 IVPB Last administered on 12/08/16 20:08; Admin Dose 100 MLS/HR; Start 12/07/16 at 14:00 Acetaminophen (Tylenol Liquid) 500 mg Q4H PRN GTB PAIN AND OR ELEVATED TEMP Last administered on 12/08/16 20:08; Admin Dose 500 MG; Start 12/07/16 at 18:00 Insulin Aspart NOVOLOG *MILD* ALGORITHM Q6 SC Last administered on 12/09/16 05 :05; Admin Dose 1 UNIT; Start 12/08/16 at 00:00 Norepinephrine 16 mg/Dextrose 500 ml @ 1.87 mls/hr TITRATE IV ; Start 12/07/16 at 23:45 Sodium Chloride (1/2 NS) 1,000 ml @ 150 mls/hr Q6H40M IV Last administered on 12/09/16 05:06; Admin Dose 150 MLS/HR; Start 12/08/16 at 08:00 Acetaminophen 650 mg 650 mg Q6H PRN GTB PAIN AND OR ELEVATED TEMP; Start at 11:00 Norepinephrine/ Dextrose (Levophed/D5W) 500 ml @ 1.87 mls/hr TITRATE IV ; Start 12/08/16 at 15:00 JULIAN EASON NP Dec 09, 2016 08:15
[2016-12-09] MEDS: COLLAGENASE 30 GM TUBE TOP SCH (09:00)
[2016-12-09] MEDS: LINEZOLID 600 MG/D5W (PMX) 300 ML IVPB SCH ×2 (09:43→21:55)
[2016-12-09] MEDS: ZINC SULFATE 220 MG CAP GTB SCH (09:48)
[2016-12-09] MEDS: CHOLECALCIFEROL 1,000 UNIT TAB GTB SCH (09:49)
[2016-12-09] MEDS: ASCORBIC ACID 500 MG TAB GTB SCH (09:49)
[2016-12-09] MEDS: FERROUS SULFATE 60 MG/ML 5ML CUP GTB SCH (09:49)
[2016-12-09] MEDS: ARTIFICIAL TEARS 15 ML OPH BOTH EYES SCH ×2 (09:49→20:14)
[2016-12-09] MEDS: AMIODARONE 200 MG TAB GTB SCH (09:49)
--- NOTE | 2016-12-09 10:15 | PN ---
DATE: 12/09/2016 SUBJECTIVE: Patricio 12/09/2016 SUBJECTIVE: The patient remains critically ill on pressor support. The patient is on ventilatory support. No other events noted. No hemoptysis, hematemesis or hemat ochezia. OBJECTIVE: VITAL SIGNS: Blood pressure is 111/64, respiration 18, pulse 70, temperature 98.6. I'S AND O'S: The patient had 7.5 L in with 2.4 liters out. HEENT: Head is normocephalic. NECK: Supple. HEART: Regular rate. LUNGS: Show diminished breath sounds at the base. ABDOMEN: Soft, nontender to palpation without rebound or guarding. EXTREMITIES: Negative for clubbing, cyanosis. No edema. DERMATOLOGIC: No rashes. MUSCULOSKELETAL: No joint effusions. NEUROLOGIC: No change in exam. MEDICATIONS: Patient's medications have been reviewed. LABORATORY DATA: Shows a sodium 160, potassium 3.2, chloride 132, bicarbonate 20, BUN 136, creatini ne 3.19. White count 12.2, hemoglobin 7.7, hematocrit 25.9, platelet count is 115. The patient's b lood cultures are positive and urine culture is positive. IMAGING: Chest x-ray shows worsening consolidation right lung zone, mild increased congestive valentine es. ASSESSMENT AND PLAN: 1. Nonoliguric acute kidney injury on top of chronic kidney disease with previous baseline creatini ne 1.4 mg/dL. The etiology of acute kidney injury is secondary to prerenal volume depletion with po ssible acute tubular necrosis. Patient's urine function has been slowly improving with IV hydration and supportive care. At this point, we will continue current treatment plan. Continue IV fluids, continue support. Continue antibiotic therapy. There is no immediate need for renal replacement [facility] at this time. 2. Severe hypernatremia. The patient has a free water deficit of approximately 6 liters, etiology is secondary to insensible losses, osmotic diuresis and questionable partial diabetes insipidus. Th e patient's initial urine osmolarity showed 480 mOsm I would; however, expect this to be higher, giv en the patient's severe hypernatremia. However, patient is responding to hypotonic fluids and water flushes. We will continue current treatment plan. Continue to monitor sodium levels appropriately to ensure correction of no more than 10 to 12 mEq in a 24 hour period. We will continue free water flushes at 500 mL q.4h. Continue half NS at 150 mL an hour. 3. Hypokalemia. Continue with potassium repletion. 4. Anemia. We will continue to monitor H and H levels. 5. Septic shock secondary to pneumonia. The patient's chest x-ray and cultures have been reviewed. Continue current medical management. Continue IV fluids, pressor support and antibiotic therapy. 6. Diabetes. Continue Accu-Cheks and insulin sliding scale. 7. Arrhythmia. Continue amiodarone. 8. Decubitus wound. Continue wound care. 9. Chronic encephalopathy. No change. 10. Ventilatory-dependent respiratory failure. Vent settings have been reviewed. ABG has been rev iewed. Continue to monitor. 11. Dysphagia status post PEG. Continue tube feeding. Please note, I spent over 35 minutes of critical care time with this patient. Dictated By: JACOB GOMEZ/LESLY Conf#: [id number] DID#: [id number]
[2016-12-09] MEDS: ACETAMINOPHEN 325 MG TAB GTB PRN ×2 (10:40→16:33)
--- NOTE | 2016-12-09 10:56 | CONS ---
Date/Time of Note Date/Time of Note DATE: 12/09/16 TIME: 10:52 Consult Date/Type/Reason Admit Date/Time Dec 06, 2016 at 17:18 Initial Consult Date Type of Consultation: pulmonary ICU Subjective Patient remains on mechanical ventilation via tracheostomy Largely somnolent Continues low-dose vasopressor support Objective Vital Signs Date Time Temp Pulse Resp B/P Pulse Ox O2 Delivery O2 Flow Rate FiO2 12/09/16 08:00 75 12/09/16 07:00 18 111/64 100 Mechanical Ventilator 12/09/16 05:45 40 12/09/16 04:00 99.0 Intake and Output 12/08/16 12/08/16 12/09/16 15:00 23:00 07:00 Intake Total 1080 ml 4097.50 ml 2369.375 ml Output Total 1800 ml 685 ml Balance 1080 ml 2297.50 ml 1684.375 ml Exam PHYSICAL EXAMINATION GENERAL: Elderly gentleman, on mechanical ventilation, opens eyes and appears somewhat agitated. VITAL SIGNS: see below. HEENT: Pupils equal, round, and reactive to light. Tracheostomy site clean and intact. CARDIAC: S1, S2, 2/6 systolic ejection murmur CHEST: Diminished air entry bilaterally. ABDOMEN: Mildly distended. Bowel sounds present no guarding or rebound EXTREMITIES: No cyanosis, clubbing or edema. NEUROLOGIC: Generalized weakness Results/Medications Result Diagram: 12/09/16 0420 12/09/16 0420 Results 24 hrs Laboratory Tests Test 12/08/16 11:45 12/08/16 13:30 12/08/16 17:33 12/08/16 20:07 Bedside Glucose 199 179 171 Sodium Level 167 *H Potassium Level 3.3 L Chloride Level 132 H Carbon Dioxide Level 22 Anion Gap 16 Blood Urea Nitrogen 165 H Creatinine 3.54 H Glucose Level 174 Calcium Level 8.8 Test 12/08/16 22:15 12/09/16 00:22 12/09/16 04:20 12/09/16 05:00 Sodium Level 161 *H 160 H Potassium Level 3.3 L 3.2 L Chloride Level 133 H 132 H Carbon Dioxide Level 21 20 L Anion Gap 10 # 11 Blood Urea Nitrogen 148 H 136 H Creatinine 3.21 H 3.19 H Glucose Level 220 160 Calcium Level 8.7 8.5 Bedside Glucose 230 H White Blood Count 12.2 H Red Blood Count 2.68 L Hemoglobin 7.7 L Hematocrit 25.9 L Mean Corpuscular Volume 96.6 Mean Corpuscular Hemoglobin 28.7 L Mean Corpuscular Hemoglobin Concent 29.7 L Red Cell Distribution Width 21.0 H Platelet Count 115 L Mean Platelet Volume 13.3 H Neutrophils % 84.4 H Lymphocytes % 4.3 L Monocytes % 3.3 Eosinophils % 5.9 Basophils % 0.2 Nucleated Red Blood Cells % 0.0 Neutrophils # 10.3 H Lymphocytes # 0.5 L Monocytes # 0.4 Eosinophils # 0.7 H Basophils # 0.0 Nucleated Red Blood Cells # 0.0 Lactic Acid Level 1.5 Phosphorus Level 4.1 Magnesium Level 2.5 Blood Gas Specimen Source Blood arterial Arterial Blood Date Drawn 12/09/2016 4:31:47 AM Arterial Blood pH (Temp corrected) 7.376 Arterial Blood pCO2 (Temp correct) 34.3 L Arterial Blood pO2 (Temp corrected) 119.1 H Arterial Blood HCO3 19.7 L Arterial Blood Base Excess -5.0 L Arterial Blood Oxygen Saturation 97.5 Pedro Test ACCEPTAB Arterial Blood Gas Puncture Site Right Radial Arterial Blood Carboxyhemoglobin 0.3 Arterial Blood Methemoglobin 0.8 Blood Gas A-a O2 Differential 198.8 H Oxyhemoglobin Percent 96.4 Total Hemoglobin 7.0 L Blood Gas Temperature 37.0 Blood Gas Respiration Rate 16.0 Blood Gas Actual Respiration Rate 26 Blood Gas Modality VENT - AC FiO2 50.0 Blood Gas Tidal Volume 500.0 Blood Gas Low PEEP Setting 5.0 Blood Gas Inspiratory Pressure 26.0 Blood Gas Notified Whom BR Blood Gas Notified Time 12/09/2016 4:38:30 AM Test 12/09/16 05:03 Bedside Glucose 177 Medications Current Medications Ondansetron HCl (Zofran Inj) 4 mg Q6H PRN IV NAUSEA AND/OR VOMITING; Start at 18:00 Morphine Sulfate (morphine) 2 mg Q4H PRN IV PAIN LEVEL 7-10; Start 12/06/16 at 18:00 Pantoprazole (Protonix Iv) 40 mg BID@06,18 IV Last administered on 12/09/16 05 :01; Admin Dose 40 MG; Start 12/06/16 at 18:00 Amiodarone HCl (Cordarone) 200 mg DAILY GTB Last administered on 12/09/16 09: 49; Admin Dose 200 MG; Start 12/07/16 at 09:00 Ascorbic Acid (Vitamin C) 500 mg DAILY GTB Last administered on 12/09/16 09:49 ; Admin Dose 500 MG; Start 12/07/16 at 09:00 Cholecalciferol (Vitamin D) 1,000 unit DAILY GTB Last administered on 09:49; Admin Dose 1,000 UNIT; Start 12/07/16 at 09:00 Eye Lubricant (Artificial Tears Oph) 2 drop BID BOTH EYES Last administered on 12/09/16 09:49; Admin Dose 2 DROP; Start 12/06/16 at 21:00 Zinc Sulfate (Zinc Sulfate) 220 mg DAILY GTB Last administered on 12/09/16 09: 48; Admin Dose 220 MG; Start 12/07/16 at 09:00 Insulin Glargine (Lantus) 6 unit DAILY@20 SC Last administered on 12/08/16 20: 08; Admin Dose 6 UNIT; Start 12/06/16 at 20:00 Miscellaneous Information 1 ea NOTE XX ; Start 12/06/16 at 19:00 Glucose (Glutose) 15 gm Q15M PRN PO DECREASED GLUCOSE; Start 12/06/16 at 19:00 Glucose (Glutose) 22.5 gm Q15M PRN PO DECREASED GLUCOSE; Start 12/06/16 at 19: 00 Dextrose (D50w Syringe) 25 ml Q15M PRN IV DECREASED GLUCOSE; Start 12/06/16 at 19:00 Dextrose (D50w Syringe) 50 ml Q15M PRN IV DECREASED GLUCOSE; Start 12/06/16 at 19:00 Glucagon (Glucagen) 1 mg Q15M PRN IM DECREASED GLUCOSE; Start 12/06/16 at 19:00 Glucose (Glutose) 15 gm Q15M PRN BUCCAL DECREASED GLUCOSE; Start 12/06/16 at 19 :00 Ferrous Sulfate (Feosol Liquid Cup) 300 mg DAILY GTB Last administered on 09:49; Admin Dose 300 MG; Start 12/07/16 at 09:00 Collagenase (Santyl) 1 applic DAILY TOP Last administered on 12/07/16 15:31; Admin Dose 1 APPLIC; Start 12/07/16 at 11:30 Collagenase 1 applic 1 applic PRN PRN TOP WOUND CARE; Start 12/07/16 at 11:00 Linezolid 300 ml @ 300 mls/hr Q12 IVPB Last administered on 12/09/16 09:43; Admin Dose 300 MLS/HR; Start 12/07/16 at 13:30 Imipenem/ Cilastatin Sodium (Primaxin 500 Mg/ 100 ml (Pmx)) 100 ml @ 100 mls/ hr Q12 IVPB Last administered on 12/08/16 20:08; Admin Dose 100 MLS/HR; Start 12/07/16 at 14:00 Acetaminophen (Tylenol Liquid) 500 mg Q4H PRN GTB PAIN AND OR ELEVATED TEMP Last administered on 12/08/16 20:08; Admin Dose 500 MG; Start 12/07/16 at 18:00 Insulin Aspart NOVOLOG *MILD* ALGORITHM Q6 SC Last administered on 12/09/16 05 :05; Admin Dose 1 UNIT; Start 12/08/16 at 00:00 Norepinephrine 16 mg/Dextrose 500 ml @ 1.87 mls/hr TITRATE IV ; Start 12/07/16 at 23:45 Sodium Chloride (1/2 NS) 1,000 ml @ 150 mls/hr Q6H40M IV Last administered on 12/09/16 09:45; Admin Dose 150 MLS/HR; Start 12/08/16 at 08:00 Acetaminophen 650 mg 650 mg Q6H PRN GTB PAIN AND OR ELEVATED TEMP Last administered on 12/09/16 10:40; Admin Dose 650 MG; Start 12/08/16 at 11:00 Norepinephrine/ Dextrose (Levophed/D5W) 500 ml @ 1.87 mls/hr TITRATE IV ; Start 12/08/16 at 15:00 Assessment/Plan Chief Complaint/Hosp Course IMPRESSION: 1. Septic Shock, likely secondary to urosepsis. 2. Acute on chronic kidney disease. 3. Hypernatremia with severe free water deficit. 4. Chronic vent-dependent respiratory failure. 5. Encephalopathy. 6. Anemia likely acute on chronic questionable GI bleed. RECOMMENDATIONS: 1. IVF's; titrate levophed gtt to MAP > 65 mm Hg 2. Follow up blood cultures and urine cultures. 3. Antibiotics per ID with plans to de-escalate pending cultures. 4. Free H2O repletion 5. We will follow serum creatinine closely, as well as electrolytes. 6. Transfuse 2 unit packed red blood cells 35 min cc time Problems: NICK BALLARD MD, [facility] Dec 09, 2016 10:56
[2016-12-09] MEDS: IMIPENEM-CILAST 500MG IV (PMX) 100 ML IVPB SCH ×2 (10:58→20:20)
[2016-12-09 11:23] LABS: HEMOGLOBIN 6.4 g/dl (14.0-18.0)
[2016-12-09 11:24] LABS: WHITE BLOOD COUNT 13.4 10^3/ul (4.8-10.8)
--- NOTE | 2016-12-09 13:16 | CONS ---
Date/Time of Note Date/Time of Note DATE: 12/09/16 TIME: 13:07 Assessment/Plan Assessment/Plan Chief Complaint/Hosp Course ID PROGRESS NOTE TOTAL ABX DAY #4 =>Zyvox + Primaxin s/p Vanco IV + Cefepime 24H INTERVAL SUMMARY * (+)GPC BCx = CONS & (+)GNR Urine =PSAR * Tmax this am 100.6+ down from yesterday spiked temp this am 102.4 * Opens eyes, appears weak, thin, chronic debilitated 71 yo M, Vented * UTI => URINE CULTURE Final Organism 1 PSEUDOMONAS AERUGINOSA COLONY COUNT >100,000 CFU/ml P.AERUG M.I.C. RX --------- --- AMIKACIN 16 S AZTREONAM R CEFEPIME 16 I CEFTAZIDIME 8 S CIPROFLOXACIN >=4 R GENTAMICIN >=16 R IMIPENEM <=0.25 S LEVOFLOXACIN >=8 R TOBRAMYCIN >=16 R PIPERACILLIN/TAZOBACTAM R CASE REVIEW 71 yo M w/MMP chronic debility/VDRF w/Trach & Peg, known to Dr. Tanner's ID team consultants readmitted 12/06/16 with acute renal failure, sepsis due to UTI /HCAP. * 12/06/16 CXR: IMPRESSION:1. tracheostomy tube in good position. 2. New right lower lobe pneumonia. 3. Atherosclerotic aortic calcification * INFECTIOUS DISEASE HISTORY: (+)MRSA BCx 10/30/16; (+)PSAR UTI = MDR sensitive to Amikacin & Primaxin, intermediate to Cefepime/Fortaz * Hx of ABD wall cellulitis and multiple infected decubs PHYSICAL EXAMINATION: GENERAL: 71 yo M w/chronic encephalopathy, VDRF HEENT: Head DSG, NGT secure NECK: Trached-> Vented CHEST: Rise symmetrical= Vented HEART: RRR ABDOMEN: Soft, peg, abd wall healing = Colostomy bag EXTREMITIES: Warm SKIN: Decubs, unstageable ID ASSESSMENT: 71 yo M w/chronic debility 2/2 multiple medical problems re-admitted with: 1. Sepis w/FEVERS >102.6 w/ leukocytosis due to Line sepsis + HCAP + UTI * (+)BCx = CoNS leukocytosis -> due to ?LINE SEPSIS vs contaminant vs wounds? 2. HCAP => Aspiration PNA w/new right sided pulmonary infiltrate on CXR * Repeat respiratory cx pending * AUG 2016 RESP CX: Polymicrobial (+)MRSA/(+)Proteus Mirabilis/(+) ACHROMOBACTER SPECIES 3. Complicated UTI w/Pyuria on UA =12/06/16 UA: (+)PSAR w/ Pyuria > 200 WBCs * S/P 10/30/16 PSAR MDRO UTI sensitive to Amikacin & Primaxin 4. 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 Acute renal failure/CKD * Right kidney mass of unknown significance 6. GERD w/ prior EDG (+)distal esophagitis, duodenitis, gastric ulcers, dysphagia 7. Hx of cardiac arrhythmia 8. Hx of unstageable sacral wound * Prior wound Cx grew: MRSA, VRE, KP, GNR Proteus 9. Hx of ABD wall cellulitis prior admission due to GT leak 7. Hx of empiric Rx for scabies rash prior admission 8. Hx of MRSA PICC Line sepsis 10/30/16 INVASIVES: * PIV, Trach, PEG, FC, L-FEM TLC CURRENT ABX: TOTAL ABX DAY #4 =>Zyvox + Primaxin Vanco IV + Cefepime PRIOR ADMISSION: Zyvox, Levaquin, Cefepime ID RECOMMENDATIONS: => Avoid renal toxic meds 1. Patient has hx of VRE wounds & MDRO PSAR that was sensitive to Primaxin; NOW with VERITO. * Started Zyvox and Primaxin for improved MDRO ABX coverage that is also renal safe. 2. Continue ABX = Sputum cx on order 3. Per notes EGD pending . . Problems: Consultation Date/Type/Reason Admit Date/Time Dec 06, 2016 at 17:18 Type of Consultation: ID Exam/Review of Systems Vital Signs Vitals Vital Signs Date Time Temp Pulse Resp B/P Pulse Ox O2 Delivery O2 Flow Rate FiO2 12/09/16 12:00 74 12/09/16 11:27 27 98 40 12/09/16 07:00 111/64 Mechanical Ventilator 12/09/16 04:00 99.0 Intake and Output 12/08/16 12/08/16 12/09/16 14:59 22:59 06:59 Intake Total 1080 ml 3600.00 ml 2866.875 ml Output Total 1680 ml 805 ml Balance 1080 ml 1920.00 ml 2061.875 ml Results Result Diagram: 12/09/16 0420 12/09/16 0420 Results 24 hrs Laboratory Tests Test 12/08/16 13:30 12/08/16 17:33 12/08/16 20:07 12/08/16 22:15 Sodium Level 167 *H 161 *H Potassium Level 3.3 L 3.3 L Chloride Level 132 H 133 H Carbon Dioxide Level 22 21 Anion Gap 16 10 # Blood Urea Nitrogen 165 H 148 H Creatinine 3.54 H 3.21 H Glucose Level 174 220 Calcium Level 8.8 8.7 Bedside Glucose 179 171 Test 12/09/16 00:22 12/09/16 04:20 12/09/16 05:00 12/09/16 05:03 Bedside Glucose 230 H 177 White Blood Count 12.2 H Red Blood Count 2.68 L Hemoglobin 7.7 L Hematocrit 25.9 L Mean Corpuscular Volume 96.6 Mean Corpuscular Hemoglobin 28.7 L Mean Corpuscular Hemoglobin Concent 29.7 L Red Cell Distribution Width 21.0 H Platelet Count 115 L Mean Platelet Volume 13.3 H Neutrophils % 84.4 H Lymphocytes % 4.3 L Monocytes % 3.3 Eosinophils % 5.9 Basophils % 0.2 Nucleated Red Blood Cells % 0.0 Neutrophils # 10.3 H Lymphocytes # 0.5 L Monocytes # 0.4 Eosinophils # 0.7 H Basophils # 0.0 Nucleated Red Blood Cells # 0.0 Sodium Level 160 H Potassium Level 3.2 L Chloride Level 132 H Carbon Dioxide Level 20 L Anion Gap 11 Blood Urea Nitrogen 136 H Creatinine 3.19 H Glucose Level 160 Lactic Acid Level 1.5 Calcium Level 8.5 Phosphorus Level 4.1 Magnesium Level 2.5 Blood Gas Specimen Source Blood arterial Arterial Blood Date Drawn 12/09/2016 4:31:47 AM Arterial Blood pH (Temp corrected) 7.376 Arterial Blood pCO2 (Temp correct) 34.3 L Arterial Blood pO2 (Temp corrected) 119.1 H Arterial Blood HCO3 19.7 L Arterial Blood Base Excess -5.0 L Arterial Blood Oxygen Saturation 97.5 Pedro Test ACCEPTAB Arterial Blood Gas Puncture Site Right Radial Arterial Blood Carboxyhemoglobin 0.3 Arterial Blood Methemoglobin 0.8 Blood Gas A-a O2 Differential 198.8 H Oxyhemoglobin Percent 96.4 Total Hemoglobin 7.0 L Blood Gas Temperature 37.0 Blood Gas Respiration Rate 16.0 Blood Gas Actual Respiration Rate 26 Blood Gas Modality VENT - AC FiO2 50.0 Blood Gas Tidal Volume 500.0 Blood Gas Low PEEP Setting 5.0 Blood Gas Inspiratory Pressure 26.0 Blood Gas Notified Whom BR Blood Gas Notified Time 12/09/2016 4:38:30 AM Test 12/09/16 12:27 Bedside Glucose 176 Medications Medications Current Medications Ondansetron HCl (Zofran Inj) 4 mg Q6H PRN IV NAUSEA AND/OR VOMITING; Start at 18:00 Morphine Sulfate (morphine) 2 mg Q4H PRN IV PAIN LEVEL 7-10; Start 12/06/16 at 18:00 Pantoprazole (Protonix Iv) 40 mg BID@06,18 IV Last administered on 12/09/16 05 :01; Admin Dose 40 MG; Start 12/06/16 at 18:00 Amiodarone HCl (Cordarone) 200 mg DAILY GTB Last administered on 12/09/16 09: 49; Admin Dose 200 MG; Start 12/07/16 at 09:00 Ascorbic Acid (Vitamin C) 500 mg DAILY GTB Last administered on 12/09/16 09:49 ; Admin Dose 500 MG; Start 12/07/16 at 09:00 Cholecalciferol (Vitamin D) 1,000 unit DAILY GTB Last administered on 09:49; Admin Dose 1,000 UNIT; Start 12/07/16 at 09:00 Eye Lubricant (Artificial Tears Oph) 2 drop BID BOTH EYES Last administered on 12/09/16 09:49; Admin Dose 2 DROP; Start 12/06/16 at 21:00 Zinc Sulfate (Zinc Sulfate) 220 mg DAILY GTB Last administered on 12/09/16 09: 48; Admin Dose 220 MG; Start 12/07/16 at 09:00 Insulin Glargine (Lantus) 6 unit DAILY@20 SC Last administered on 12/08/16 20: 08; Admin Dose 6 UNIT; Start 12/06/16 at 20:00 Miscellaneous Information 1 ea NOTE XX ; Start 12/06/16 at 19:00 Glucose (Glutose) 15 gm Q15M PRN PO DECREASED GLUCOSE; Start 12/06/16 at 19:00 Glucose (Glutose) 22.5 gm Q15M PRN PO DECREASED GLUCOSE; Start 12/06/16 at 19: 00 Dextrose (D50w Syringe) 25 ml Q15M PRN IV DECREASED GLUCOSE; Start 12/06/16 at 19:00 Dextrose (D50w Syringe) 50 ml Q15M PRN IV DECREASED GLUCOSE; Start 12/06/16 at 19:00 Glucagon (Glucagen) 1 mg Q15M PRN IM DECREASED GLUCOSE; Start 12/06/16 at 19:00 Glucose (Glutose) 15 gm Q15M PRN BUCCAL DECREASED GLUCOSE; Start 12/06/16 at 19 :00 Ferrous Sulfate (Feosol Liquid Cup) 300 mg DAILY GTB Last administered on 09:49; Admin Dose 300 MG; Start 12/07/16 at 09:00 Collagenase (Santyl) 1 applic DAILY TOP Last administered on 12/07/16 15:31; Admin Dose 1 APPLIC; Start 12/07/16 at 11:30 Collagenase 1 applic 1 applic PRN PRN TOP WOUND CARE; Start 12/07/16 at 11:00 Linezolid 300 ml @ 300 mls/hr Q12 IVPB Last administered on 12/09/16 09:43; Admin Dose 300 MLS/HR; Start 12/07/16 at 13:30 Imipenem/ Cilastatin Sodium (Primaxin 500 Mg/ 100 ml (Pmx)) 100 ml @ 100 mls/ hr Q12 IVPB Last administered on 12/09/16 10:58; Admin Dose 100 MLS/HR; Start 12/07/16 at 14:00 Acetaminophen (Tylenol Liquid) 500 mg Q4H PRN GTB PAIN AND OR ELEVATED TEMP Last administered on 12/08/16 20:08; Admin Dose 500 MG; Start 12/07/16 at 18:00 Insulin Aspart NOVOLOG *MILD* ALGORITHM Q6 SC Last administered on 12/09/16 12 :30; Admin Dose 1 UNIT; Start 12/08/16 at 00:00 Norepinephrine 16 mg/Dextrose 500 ml @ 1.87 mls/hr TITRATE IV ; Start 12/07/16 at 23:45 Sodium Chloride (1/2 NS) 1,000 ml @ 150 mls/hr Q6H40M IV Last administered on 12/09/16 09:45; Admin Dose 150 MLS/HR; Start 12/08/16 at 08:00 Acetaminophen 650 mg 650 mg Q6H PRN GTB PAIN AND OR ELEVATED TEMP Last administered on 12/09/16 10:40; Admin Dose 650 MG; Start 12/08/16 at 11:00 Norepinephrine/ Dextrose (Levophed/D5W) 500 ml @ 1.87 mls/hr TITRATE IV ; Start 12/08/16 at 15:00 ERIC LIN NP Dec 09, 2016 13:16
[2016-12-09 14:23] LABS: MICROALBUMIN 7.8 mg/dL
[2016-12-09 14:49] LABS: CREATININE 2.98 mg/dl (0.61-1.24)
[2016-12-09 14:50] LABS: CALCIUM 8.5 mg/dl (8.4-10.2)
--- NOTE | 2016-12-09 15:13 | PN ---
Date/Time of Note Date/Time of Note DATE: 12/09/16 TIME: 15:08 Assessment/Plan VTE Prophylaxis VTE Prophylaxis Intervention: SCD's Lines/Catheters IV Catheter Type (from Nrs): Central Line Central line still needed: Yes Urinary Cath still in place: Yes Reason Cath still needed: urinary retention Assessment/Plan Assessment/Plan Severe recurrent anemia * Ventilator-dependent respiratory failure * Distal esophagitis, duodenitis, gastric ulcers * Diabetes mellitus * Chronic kidney disease * Cardiac arrhythmia * Decubitus pressure ulcers * Right kidney mass. Hypernatremia Plan * Continue present regimen * NPO post midnight * monitor Hand H q6 and transfuse as needed * PPI therapy * EGD 12/10/2016 risk and benefit explain to family and agreed with the planned procedure Subjective 24 Hr Interval Summary Free Text/Dictation * Course reviewed with RN * patient seen and examined * will reschedule EGD in am * Hemoglobin 7.7 * No melena nor hematochezia Exam/Review of Systems Vital Signs Vitals Vital Signs Date Time Temp Pulse Resp B/P Pulse Ox O2 Delivery O2 Flow Rate FiO2 12/09/16 12:00 74 12/09/16 11:27 27 98 40 12/09/16 07:00 111/64 Mechanical Ventilator 12/09/16 04:00 99.0 Intake and Output 12/08/16 12/08/16 12/09/16 15:00 23:00 07:00 Intake Total 1080 ml 4097.50 ml 2369.375 ml Output Total 1800 ml 685 ml Balance 1080 ml 2297.50 ml 1684.375 ml Exam Constitutional: frail Eyes: PERRL, nl sclera Neck: non-tender, other (tracheostomy), supple Respiratory: diminished breath sounds, normal air movement, other (on ventilator) Cardiovascular: nl pulses, regular rate and rhythm Gastrointestinal: bowel sounds, non-tender, other (g tube dressing dry ,no discharge), soft, No rebound or guarding Skin: other (multiple decubitus) Results Result Diagram: 12/09/16 0420 12/09/16 1430 Results 24 hrs Laboratory Tests Test 12/08/16 17:33 12/08/16 20:07 12/08/16 22:15 12/09/16 00:22 Bedside Glucose 179 171 230 H Sodium Level 161 *H Potassium Level 3.3 L Chloride Level 133 H Carbon Dioxide Level 21 Anion Gap 10 # Blood Urea Nitrogen 148 H Creatinine 3.21 H Glucose Level 220 Calcium Level 8.7 Test 12/09/16 04:20 12/09/16 05:00 12/09/16 05:03 12/09/16 12:27 White Blood Count 12.2 H Red Blood Count 2.68 L Hemoglobin 7.7 L Hematocrit 25.9 L Mean Corpuscular Volume 96.6 Mean Corpuscular Hemoglobin 28.7 L Mean Corpuscular Hemoglobin Concent 29.7 L Red Cell Distribution Width 21.0 H Platelet Count 115 L Mean Platelet Volume 13.3 H Neutrophils % 84.4 H Lymphocytes % 4.3 L Monocytes % 3.3 Eosinophils % 5.9 Basophils % 0.2 Nucleated Red Blood Cells % 0.0 Neutrophils # 10.3 H Lymphocytes # 0.5 L Monocytes # 0.4 Eosinophils # 0.7 H Basophils # 0.0 Nucleated Red Blood Cells # 0.0 Sodium Level 160 H Potassium Level 3.2 L Chloride Level 132 H Carbon Dioxide Level 20 L Anion Gap 11 Blood Urea Nitrogen 136 H Creatinine 3.19 H Glucose Level 160 Lactic Acid Level 1.5 Calcium Level 8.5 Phosphorus Level 4.1 Magnesium Level 2.5 Blood Gas Specimen Source Blood arterial Arterial Blood Date Drawn 12/09/2016 4:31:47 AM Arterial Blood pH (Temp corrected) 7.376 Arterial Blood pCO2 (Temp correct) 34.3 L Arterial Blood pO2 (Temp corrected) 119.1 H Arterial Blood HCO3 19.7 L Arterial Blood Base Excess -5.0 L Arterial Blood Oxygen Saturation 97.5 Pedro Test ACCEPTAB Arterial Blood Gas Puncture Site Right Radial Arterial Blood Carboxyhemoglobin 0.3 Arterial Blood Methemoglobin 0.8 Blood Gas A-a O2 Differential 198.8 H Oxyhemoglobin Percent 96.4 Total Hemoglobin 7.0 L Blood Gas Temperature 37.0 Blood Gas Respiration Rate 16.0 Blood Gas Actual Respiration Rate 26 Blood Gas Modality VENT - AC FiO2 50.0 Blood Gas Tidal Volume 500.0 Blood Gas Low PEEP Setting 5.0 Blood Gas Inspiratory Pressure 26.0 Blood Gas Notified Whom BR Blood Gas Notified Time 12/09/2016 4:38:30 AM Bedside Glucose 177 176 Test 12/09/16 14:30 Sodium Level 157 H Potassium Level 3.0 L Chloride Level 126 H Carbon Dioxide Level 20 L Anion Gap 14 Blood Urea Nitrogen 124 H Creatinine 2.98 H Glucose Level 155 Calcium Level 8.5 Medications Medications Current Medications Ondansetron HCl (Zofran Inj) 4 mg Q6H PRN IV NAUSEA AND/OR VOMITING; Start at 18:00 Morphine Sulfate (morphine) 2 mg Q4H PRN IV PAIN LEVEL 7-10; Start 12/06/16 at 18:00 Pantoprazole (Protonix Iv) 40 mg BID@06,18 IV Last administered on 12/09/16 05 :01; Admin Dose 40 MG; Start 12/06/16 at 18:00 Amiodarone HCl (Cordarone) 200 mg DAILY GTB Last administered on 12/09/16 09: 49; Admin Dose 200 MG; Start 12/07/16 at 09:00 Ascorbic Acid (Vitamin C) 500 mg DAILY GTB Last administered on 12/09/16 09:49 ; Admin Dose 500 MG; Start 12/07/16 at 09:00 Cholecalciferol (Vitamin D) 1,000 unit DAILY GTB Last administered on 09:49; Admin Dose 1,000 UNIT; Start 12/07/16 at 09:00 Eye Lubricant (Artificial Tears Oph) 2 drop BID BOTH EYES Last administered on 12/09/16 09:49; Admin Dose 2 DROP; Start 12/06/16 at 21:00 Zinc Sulfate (Zinc Sulfate) 220 mg DAILY GTB Last administered on 12/09/16 09: 48; Admin Dose 220 MG; Start 12/07/16 at 09:00 Insulin Glargine (Lantus) 6 unit DAILY@20 SC Last administered on 12/08/16 20: 08; Admin Dose 6 UNIT; Start 12/06/16 at 20:00 Miscellaneous Information 1 ea NOTE XX ; Start 12/06/16 at 19:00 Glucose (Glutose) 15 gm Q15M PRN PO DECREASED GLUCOSE; Start 12/06/16 at 19:00 Glucose (Glutose) 22.5 gm Q15M PRN PO DECREASED GLUCOSE; Start 12/06/16 at 19: 00 Dextrose (D50w Syringe) 25 ml Q15M PRN IV DECREASED GLUCOSE; Start 12/06/16 at 19:00 Dextrose (D50w Syringe) 50 ml Q15M PRN IV DECREASED GLUCOSE; Start 12/06/16 at 19:00 Glucagon (Glucagen) 1 mg Q15M PRN IM DECREASED GLUCOSE; Start 12/06/16 at 19:00 Glucose (Glutose) 15 gm Q15M PRN BUCCAL DECREASED GLUCOSE; Start 12/06/16 at 19 :00 Ferrous Sulfate (Feosol Liquid Cup) 300 mg DAILY GTB Last administered on 09:49; Admin Dose 300 MG; Start 12/07/16 at 09:00 Collagenase (Santyl) 1 applic DAILY TOP Last administered on 12/07/16 15:31; Admin Dose 1 APPLIC; Start 12/07/16 at 11:30 Collagenase 1 applic 1 applic PRN PRN TOP WOUND CARE; Start 12/07/16 at 11:00 Linezolid 300 ml @ 300 mls/hr Q12 IVPB Last administered on 12/09/16 09:43; Admin Dose 300 MLS/HR; Start 12/07/16 at 13:30 Imipenem/ Cilastatin Sodium (Primaxin 500 Mg/ 100 ml (Pmx)) 100 ml @ 100 mls/ hr Q12 IVPB Last administered on 12/09/16 10:58; Admin Dose 100 MLS/HR; Start 12/07/16 at 14:00 Acetaminophen (Tylenol Liquid) 500 mg Q4H PRN GTB PAIN AND OR ELEVATED TEMP Last administered on 12/08/16 20:08; Admin Dose 500 MG; Start 12/07/16 at 18:00 Insulin Aspart NOVOLOG *MILD* ALGORITHM Q6 SC Last administered on 12/09/16 12 :30; Admin Dose 1 UNIT; Start 12/08/16 at 00:00 Norepinephrine 16 mg/Dextrose 500 ml @ 1.87 mls/hr TITRATE IV ; Start 12/07/16 at 23:45 Sodium Chloride (1/2 NS) 1,000 ml @ 150 mls/hr Q6H40M IV Last administered on 12/09/16 09:45; Admin Dose 150 MLS/HR; Start 12/08/16 at 08:00 Acetaminophen 650 mg 650 mg Q6H PRN GTB PAIN AND OR ELEVATED TEMP Last administered on 12/09/16 10:40; Admin Dose 650 MG; Start 12/08/16 at 11:00 Norepinephrine/ Dextrose (Levophed/D5W) 500 ml @ 1.87 mls/hr TITRATE IV ; Start 12/08/16 at 15:00 LUCIO LEWIS MD Dec 09, 2016 15:13
[2016-12-09] MEDS ORDERED: POTASSIUM CHLORIDE (SR) 20 MEQ TAB PO STA (16:18)
[2016-12-09] MEDS: INSULIN GLARGINE [LANtus] 3 ML PEN SC SCH (20:18)
[2016-12-10] VITALS (77 sets, daily range): BP systolic 98–132; BP diastolic 49–85; PULSE 66–88; RESP 8–36
[2016-12-10] MEDS: ALBUTEROL 18 GM INHALER INH SCH ×4 (01:31→20:00)
[2016-12-10] MEDS: SOD CHLORIDE 0.45% 1,000 ML IV SCH (02:06)
[2016-12-10 05:05] LABS: ABNORMAL IP MESSAGE 1; BASOPHILS % 0.1 % (0.0-2.0); EOSINOPHILS # 0.7 10^3/ul (0.0-0.5); EOSINOPHILS % 7.1 % (0.0-7.0); HEMATOCRIT 27.7 % (42.0-52.0); HEMOGLOBIN 8.8 g/dl (14.0-18.0); LYMPHOCYTES # 0.3 10^3/ul (0.8-2.9); MEAN CORPUSCULAR HEMOGLOBIN 29.4 pg (29.0-33.0); MEAN CORPUSCULAR HGB CONC 31.8 g/dl (32.0-37.0); MEAN CORPUSCULAR VOLUME 92.6 fl (82.0-101.0); MEAN PLATELET VOLUME 12.9 fl (7.4-10.4); MONOCYTE # 0.3 10^3/ul (0.3-0.9); MONOCYTES % 2.9 % (0.0-11.0); NEUTROPHIL # 8.2 10^3/ul (1.6-7.5); NEUTROPHILS % 85.2 % (39.0-77.0); PLATELET COUNT 85 10^3/UL (140-415); RED BLOOD COUNT 2.99 10^6/ul (4.70-6.10); WHITE BLOOD COUNT 9.6 10^3/ul (4.8-10.8)
[2016-12-10 05:06] LABS: MAGNESIUM 2.1 mg/dl (1.7-2.5); PHOSPHORUS 4.7 mg/dl (2.5-4.9)
[2016-12-10 05:14] LABS: POTASSIUM 3.2 mmol/L (3.5-5.1)
[2016-12-10 05:16] LABS: CREATININE 2.73 mg/dl (0.61-1.24)
[2016-12-10 05:17] LABS: CALCIUM 8.5 mg/dl (8.4-10.2)
[2016-12-10 05:26] LABS: ADD SCAN DIFF YES
[2016-12-10] MEDS: PANTOPRAZOLE 40 MG INJ IV SCH ×2 (05:28→18:17)
[2016-12-10] MEDS: INSULIN ASPART [NOVOLOG] 3 ML PEN SC SCH ×6 (05:31→21:00)
[2016-12-10] MEDS ORDERED: POTASSIUM CHLORIDE 250 ML IVPB ONE (08:30)
[2016-12-10] MEDS: IMIPENEM-CILAST 500MG IV (PMX) 100 ML IVPB SCH ×2 (09:05→22:45)
[2016-12-10] MEDS: FERROUS SULFATE 60 MG/ML 5ML CUP GTB SCH (09:05)
[2016-12-10] MEDS: AMIODARONE 200 MG TAB GTB SCH (09:05)
[2016-12-10] MEDS: ASCORBIC ACID 500 MG TAB GTB SCH (09:05)
[2016-12-10] MEDS: CHOLECALCIFEROL 1,000 UNIT TAB GTB SCH (09:05)
[2016-12-10] MEDS: ZINC SULFATE 220 MG CAP GTB SCH (09:05)
[2016-12-10] MEDS: DEXTROSE 5% 1,000 ML IV SCH ×2 (09:07→21:50)
[2016-12-10] MEDS: ARTIFICIAL TEARS 15 ML OPH BOTH EYES SCH ×2 (09:09→22:45)
[2016-12-10] MEDS: COLLAGENASE 30 GM TUBE TOP SCH (09:21)
[2016-12-10] MEDS: LINEZOLID 600 MG/D5W (PMX) 300 ML IVPB SCH ×2 (10:25→22:45)
--- NOTE | 2016-12-10 12:31 | CONS ---
Date/Time of Note Date/Time of Note DATE: 12/10/16 TIME: 12:25 Consult Date/Type/Reason Admit Date/Time Dec 06, 2016 at 17:18 Type of Consultation: pulmonary Subjective Patient continues mechanical ventilation no significant events Remains mostly somnolent off LEVO fed pending endoscopy today Objective Vital Signs Date Time Temp Pulse Resp B/P Pulse Ox O2 Delivery O2 Flow Rate FiO2 12/10/16 11:26 74 23 99 40 12/10/16 07:00 105/62 Mechanical Ventilator 12/10/16 04:00 99.3 Intake and Output 12/09/16 12/09/16 12/10/16 15:00 23:00 07:00 Intake Total 2730.25 ml 3766.67 ml 1200.93 ml Output Total 1400 ml 1175 ml 1170 ml Balance 1330.25 ml 2591.67 ml 30.93 ml Exam PHYSICAL EXAMINATION GENERAL: Elderly gentleman, on mechanical ventilation, opens eyes and appears somewhat agitated. VITAL SIGNS: see below. HEENT: Pupils equal, round, and reactive to light. Tracheostomy site clean and intact. CARDIAC: S1, S2, 2/6 systolic ejection murmur CHEST: Diminished air entry bilaterally. ABDOMEN: Mildly distended. Bowel sounds present no guarding or rebound EXTREMITIES: No cyanosis, clubbing or edema. NEUROLOGIC: Generalized weakness Results/Medications Result Diagram: 12/10/16 0400 12/10/16 0400 Results 24 hrs Laboratory Tests Test 12/09/16 12:27 12/09/16 14:30 12/09/16 15:00 12/09/16 17:44 Bedside Glucose 176 133 Sodium Level 157 H Potassium Level 3.0 L Chloride Level 126 H Carbon Dioxide Level 20 L Anion Gap 14 Blood Urea Nitrogen 124 H Creatinine 2.98 H Glucose Level 155 Calcium Level 8.5 Urine Osmolality 382 Urine Random Creatinine 15.01 L Urine Random Sodium 68 Urine Total Protein 80.0 H Test 12/09/16 20:14 12/10/16 00:45 12/10/16 04:00 12/10/16 05:31 Bedside Glucose 136 148 103 White Blood Count 9.6 # Red Blood Count 2.99 L Hemoglobin 8.8 L Hematocrit 27.7 L Mean Corpuscular Volume 92.6 Mean Corpuscular Hemoglobin 29.4 Mean Corpuscular Hemoglobin Concent 31.8 L Red Cell Distribution Width 19.0 H Platelet Count 85 #L Mean Platelet Volume 12.9 H Neutrophils % 85.2 H Lymphocytes % 3.0 L Monocytes % 2.9 Eosinophils % 7.1 H Basophils % 0.1 Nucleated Red Blood Cells % 0.0 Neutrophils # 8.2 H Lymphocytes # 0.3 L Monocytes # 0.3 Eosinophils # 0.7 H Basophils # 0.0 Nucleated Red Blood Cells # 0.0 Sodium Level 157 H Potassium Level 3.2 L Chloride Level 125 H Carbon Dioxide Level 19 L Anion Gap 16 Blood Urea Nitrogen 109 H Creatinine 2.73 H Glucose Level 94 # Calcium Level 8.5 Phosphorus Level 4.7 Magnesium Level 2.1 Test 12/10/16 07:03 12/10/16 09:25 Lab Scanned Report REFERENCE LAB Bedside Glucose 97 Medications Current Medications Ondansetron HCl (Zofran Inj) 4 mg Q6H PRN IV NAUSEA AND/OR VOMITING; Start at 18:00 Morphine Sulfate (morphine) 2 mg Q4H PRN IV PAIN LEVEL 7-10; Start 12/06/16 at 18:00 Pantoprazole (Protonix Iv) 40 mg BID@06,18 IV Last administered on 12/10/16 05 :28; Admin Dose 40 MG; Start 12/06/16 at 18:00 Amiodarone HCl (Cordarone) 200 mg DAILY GTB Last administered on 12/10/16 09: 05; Admin Dose 200 MG; Start 12/07/16 at 09:00 Ascorbic Acid (Vitamin C) 500 mg DAILY GTB Last administered on 12/10/16 09:05 ; Admin Dose 500 MG; Start 12/07/16 at 09:00 Cholecalciferol (Vitamin D) 1,000 unit DAILY GTB Last administered on 09:05; Admin Dose 1,000 UNIT; Start 12/07/16 at 09:00 Eye Lubricant (Artificial Tears Oph) 2 drop BID BOTH EYES Last administered on 12/10/16 09:09; Admin Dose 2 DROP; Start 12/06/16 at 21:00 Zinc Sulfate (Zinc Sulfate) 220 mg DAILY GTB Last administered on 12/10/16 09: 05; Admin Dose 220 MG; Start 12/07/16 at 09:00 Insulin Glargine (Lantus) 6 unit DAILY@20 SC Last administered on 12/09/16 20: 18; Admin Dose 6 UNIT; Start 12/06/16 at 20:00 Miscellaneous Information 1 ea NOTE XX ; Start 12/06/16 at 19:00 Glucose (Glutose) 15 gm Q15M PRN PO DECREASED GLUCOSE; Start 12/06/16 at 19:00 Glucose (Glutose) 22.5 gm Q15M PRN PO DECREASED GLUCOSE; Start 12/06/16 at 19: 00 Dextrose (D50w Syringe) 25 ml Q15M PRN IV DECREASED GLUCOSE; Start 12/06/16 at 19:00 Dextrose (D50w Syringe) 50 ml Q15M PRN IV DECREASED GLUCOSE; Start 12/06/16 at 19:00 Glucagon (Glucagen) 1 mg Q15M PRN IM DECREASED GLUCOSE; Start 12/06/16 at 19:00 Glucose (Glutose) 15 gm Q15M PRN BUCCAL DECREASED GLUCOSE; Start 12/06/16 at 19 :00 Ferrous Sulfate (Feosol Liquid Cup) 300 mg DAILY GTB Last administered on 09:05; Admin Dose 300 MG; Start 12/07/16 at 09:00 Collagenase (Santyl) 1 applic DAILY TOP Last administered on 12/10/16 09:21; Admin Dose 1 APPLIC; Start 12/07/16 at 11:30 Collagenase 1 applic 1 applic PRN PRN TOP WOUND CARE; Start 12/07/16 at 11:00 Linezolid 300 ml @ 300 mls/hr Q12 IVPB Last administered on 12/10/16 10:25; Admin Dose 300 MLS/HR; Start 12/07/16 at 13:30 Imipenem/ Cilastatin Sodium (Primaxin 500 Mg/ 100 ml (Pmx)) 100 ml @ 100 mls/ hr Q12 IVPB Last administered on 12/10/16 09:05; Admin Dose 100 MLS/HR; Start 12/07/16 at 14:00 Acetaminophen 500 mg 500 mg Q4H PRN GTB PAIN AND OR ELEVATED TEMP Last administered on 12/08/16 20:08; Admin Dose 500 MG; Start 12/07/16 at 18:00 Norepinephrine/ Dextrose (Levophed/D5W) 500 ml @ 1.87 mls/hr TITRATE IV ; Start 12/07/16 at 23:45 Acetaminophen 650 mg 650 mg Q6H PRN GTB PAIN AND OR ELEVATED TEMP Last administered on 12/09/16 16:33; Admin Dose 650 MG; Start 12/08/16 at 11:00 Norepinephrine 16 mg/Dextrose 500 ml @ 1.87 mls/hr TITRATE IV Last administered on 12/09/16 19:28; Admin Dose 2.04 MLS/HR; Start 12/08/16 at 15:00 Dextrose 1,000 ml @ 75 mls/hr [id number] IV Last administered on 12/10/16 09:07 ; Admin Dose 75 MLS/HR; Start 12/10/16 at 08:30 Potassium Chloride (KCl 40 MEQ/250 ML NS) 250 ml @ 62.5 mls/hr ONCE ONCE IVPB Last administered on 12/10/16 09:09; Admin Dose 62.5 MLS/HR; Start 12/10/16 at 08:30; Stop 12/10/16 at 12:29 Insulin Aspart (Novolog Insulin Pen) NOVOLOG *MILD* ALGORITHM Q4 SC ; Start at 09:00 Assessment/Plan Chief Complaint/Hosp Course IMPRESSION: 1. Septic Shock, likely secondary to urosepsis. 2. Acute on chronic kidney disease. 3. Hypernatremia with severe free water deficit. 4. Chronic vent-dependent respiratory failure. 5. Encephalopathy. 6. Anemia likely acute on chronic questionable GI bleed. RECOMMENDATIONS: 1. IVF's; titrate levophed gtt to MAP > 65 mm Hg 2. Follow up blood cultures and urine cultures. 3. Antibiotics per ID with plans to de-escalate pending cultures. 4. Free H2O repletion 5. Renal recommendations 6. Monitor H&H 35 min cc time Problems: NICK BALLARD MD, [facility] Dec 10, 2016 12:31
[2016-12-10 15:26] LABS: POTASSIUM 3.8 mmol/L (3.5-5.1)
[2016-12-10 15:28] LABS: CREATININE 2.55 mg/dl (0.61-1.24)
[2016-12-10 15:29] LABS: CALCIUM 8.8 mg/dl (8.4-10.2)
--- NOTE | 2016-12-10 15:41 | PN ---
Date/Time of Note Date/Time of Note DATE: 12/10/16 TIME: 15:35 Assessment/Plan VTE Prophylaxis VTE Prophylaxis Intervention: contraindicated Lines/Catheters IV Catheter Type (from Rust): Central Line Urinary Cath still in place: Yes Assessment/Plan Chief Complaint/Hosp Course Assessment and plan 1. Sepsis with underlying gram-positive bacteremia secondary to underlying pneumonia and UTI. Continue antibiotics. Seen off of vasopressor at this time 2. Acute on chronic kidney injury. Medications to be renally dosed. Monitor renal panel. Continue with nephrology recommendations. 3. Hypernatremia. Continue free water. Slowly improving. Continue with nephrology recommendations 4. Type 2 diabetes. Continue on insulin regimen. Adjust as needed 5. Macrocytic anemia. Patient status post blood transfusions (multiple). GI following. Tentative plan for EGD. Follow-up workup 6. History of cardiac arrhythmia. Continue amiodarone 7. Decubitus ulcers (multiple). Continue with wound care consult recommendations. Turn every 2 hours and as needed 8. Chronic encephalopathy. Palliative care consult input pending. Continue aspiration precautions for now 9. Ventilatory dependent respiratory failure. Continue pulmonary hygiene DVT prophylaxis: Complicated due to anemia GERD prophylaxis: PPI Disposition and plan: Tentative plan for EGD. Discussed plan of care with Dr. Donald Problems: Subjective 24 Hr Interval Summary Free Text/Dictation On trach to vent. No plan distress seen. Slightly tachypneic Exam/Review of Systems Vital Signs Vitals Vital Signs Date Time Temp Pulse Resp B/P Pulse Ox O2 Delivery O2 Flow Rate FiO2 12/10/16 13:30 71 25 102/60 100 12/10/16 13:00 Mechanical Ventilator 12/10/16 12:00 99.5 12/10/16 11:26 40 Intake and Output 12/09/16 12/09/16 12/10/16 15:00 23:00 07:00 Intake Total 2730.25 ml 3766.67 ml 1200.93 ml Output Total 1400 ml 1175 ml 1170 ml Balance 1330.25 ml 2591.67 ml 30.93 ml Exam Constitutional: non-verbal, other (on mechanical ventilation) Neck: other (tracheostomy in place) Respiratory: other (minimally congested bilaterally) Cardiovascular: other (regular rate) Gastrointestinal: non-tender, other (PEG tube in place), soft Musculoskeletal: swelling (seen on bilateral feet) Neurological: unresponsive Skin: other (noted with decubitus ulcers) Results Result Diagram: 12/10/16 0400 12/10/16 0400 Results 24 hrs Laboratory Tests Test 12/09/16 17:44 12/09/16 20:14 12/10/16 00:45 12/10/16 04:00 Bedside Glucose 133 136 148 White Blood Count 9.6 # Red Blood Count 2.99 L Hemoglobin 8.8 L Hematocrit 27.7 L Mean Corpuscular Volume 92.6 Mean Corpuscular Hemoglobin 29.4 Mean Corpuscular Hemoglobin Concent 31.8 L Red Cell Distribution Width 19.0 H Platelet Count 85 #L Mean Platelet Volume 12.9 H Neutrophils % 85.2 H Lymphocytes % 3.0 L Monocytes % 2.9 Eosinophils % 7.1 H Basophils % 0.1 Nucleated Red Blood Cells % 0.0 Neutrophils # 8.2 H Lymphocytes # 0.3 L Monocytes # 0.3 Eosinophils # 0.7 H Basophils # 0.0 Nucleated Red Blood Cells # 0.0 Sodium Level 157 H Potassium Level 3.2 L Chloride Level 125 H Carbon Dioxide Level 19 L Anion Gap 16 Blood Urea Nitrogen 109 H Creatinine 2.73 H Glucose Level 94 # Calcium Level 8.5 Phosphorus Level 4.7 Magnesium Level 2.1 Test 12/10/16 05:31 12/10/16 07:03 12/10/16 09:25 12/10/16 11:20 Bedside Glucose 103 97 Lab Scanned Report REFERENCE LAB Stool Occult Blood NEGATIVE Test 12/10/16 13:45 Bedside Glucose 101 Medications Medications Current Medications Ondansetron HCl (Zofran Inj) 4 mg Q6H PRN IV NAUSEA AND/OR VOMITING; Start at 18:00 Morphine Sulfate (morphine) 2 mg Q4H PRN IV PAIN LEVEL 7-10; Start 12/06/16 at 18:00 Pantoprazole (Protonix Iv) 40 mg BID@06,18 IV Last administered on 12/10/16 05 :28; Admin Dose 40 MG; Start 12/06/16 at 18:00 Amiodarone HCl (Cordarone) 200 mg DAILY GTB Last administered on 12/10/16 09: 05; Admin Dose 200 MG; Start 12/07/16 at 09:00 Ascorbic Acid (Vitamin C) 500 mg DAILY GTB Last administered on 12/10/16 09:05 ; Admin Dose 500 MG; Start 12/07/16 at 09:00 Cholecalciferol (Vitamin D) 1,000 unit DAILY GTB Last administered on 09:05; Admin Dose 1,000 UNIT; Start 12/07/16 at 09:00 Eye Lubricant (Artificial Tears Oph) 2 drop BID BOTH EYES Last administered on 12/10/16 09:09; Admin Dose 2 DROP; Start 12/06/16 at 21:00 Zinc Sulfate (Zinc Sulfate) 220 mg DAILY GTB Last administered on 12/10/16 09: 05; Admin Dose 220 MG; Start 12/07/16 at 09:00 Insulin Glargine (Lantus) 6 unit DAILY@20 SC Last administered on 12/09/16 20: 18; Admin Dose 6 UNIT; Start 12/06/16 at 20:00 Miscellaneous Information 1 ea NOTE XX ; Start 12/06/16 at 19:00 Glucose (Glutose) 15 gm Q15M PRN PO DECREASED GLUCOSE; Start 12/06/16 at 19:00 Glucose (Glutose) 22.5 gm Q15M PRN PO DECREASED GLUCOSE; Start 12/06/16 at 19: 00 Dextrose (D50w Syringe) 25 ml Q15M PRN IV DECREASED GLUCOSE; Start 12/06/16 at 19:00 Dextrose (D50w Syringe) 50 ml Q15M PRN IV DECREASED GLUCOSE; Start 12/06/16 at 19:00 Glucagon (Glucagen) 1 mg Q15M PRN IM DECREASED GLUCOSE; Start 12/06/16 at 19:00 Glucose (Glutose) 15 gm Q15M PRN BUCCAL DECREASED GLUCOSE; Start 12/06/16 at 19 :00 Ferrous Sulfate (Feosol Liquid Cup) 300 mg DAILY GTB Last administered on 09:05; Admin Dose 300 MG; Start 12/07/16 at 09:00 Collagenase (Santyl) 1 applic DAILY TOP Last administered on 12/10/16 09:21; Admin Dose 1 APPLIC; Start 12/07/16 at 11:30 Collagenase 1 applic 1 applic PRN PRN TOP WOUND CARE; Start 12/07/16 at 11:00 Linezolid 300 ml @ 300 mls/hr Q12 IVPB Last administered on 12/10/16 10:25; Admin Dose 300 MLS/HR; Start 12/07/16 at 13:30 Imipenem/ Cilastatin Sodium (Primaxin 500 Mg/ 100 ml (Pmx)) 100 ml @ 100 mls/ hr Q12 IVPB Last administered on 12/10/16 09:05; Admin Dose 100 MLS/HR; Start 12/07/16 at 14:00 Acetaminophen 500 mg 500 mg Q4H PRN GTB PAIN AND OR ELEVATED TEMP Last administered on 12/08/16 20:08; Admin Dose 500 MG; Start 12/07/16 at 18:00 Norepinephrine/ Dextrose (Levophed/D5W) 500 ml @ 1.87 mls/hr TITRATE IV ; Start 12/07/16 at 23:45 Acetaminophen 650 mg 650 mg Q6H PRN GTB PAIN AND OR ELEVATED TEMP Last administered on 12/09/16 16:33; Admin Dose 650 MG; Start 12/08/16 at 11:00 Norepinephrine 16 mg/Dextrose 500 ml @ 1.87 mls/hr TITRATE IV Last administered on 12/09/16 19:28; Admin Dose 2.04 MLS/HR; Start 12/08/16 at 15:00 Dextrose (D5W) 1,000 ml @ 75 mls/hr [id number] IV Last administered on 12/10/16 09:07; Admin Dose 75 MLS/HR; Start 12/10/16 at 08:30 Insulin Aspart (Novolog Insulin Pen) NOVOLOG *MILD* ALGORITHM Q4 SC ; Start at 09:00 ELISHA BROCK Dec 10, 2016 15:41
--- NOTE | 2016-12-10 15:52 | CONS ---
Date/Time of Note Date/Time of Note DATE: 12/10/16 TIME: 15:49 Assessment/Plan Assessment/Plan Chief Complaint/Hosp Course ID PROGRESS NOTE TOTAL ABX DAY #5 =>Zyvox + Primaxin s/p Vanco IV + Cefepime 24H INTERVAL SUMMARY * Pending EGD per notes * (+)GPC BCx = CONS & (+)GNR Urine =PSAR * Low grade temps persisting -- Tmax 102.4 on 12/08 * Opens eyes, appears weak, thin, chronic debilitated 71 yo M, Vented * UTI => URINE CULTURE Final Organism 1 PSEUDOMONAS AERUGINOSA COLONY COUNT >100,000 CFU/ml P.AERUG M.I.C. RX --------- --- AMIKACIN 16 S AZTREONAM R CEFEPIME 16 I CEFTAZIDIME 8 S CIPROFLOXACIN >=4 R GENTAMICIN >=16 R IMIPENEM <=0.25 S LEVOFLOXACIN >=8 R TOBRAMYCIN >=16 R PIPERACILLIN/TAZOBACTAM R CASE REVIEW 71 yo M w/MMP chronic debility/VDRF w/Trach & Peg, known to Dr. Tanner's ID team consultants readmitted 12/06/16 with acute renal failure, sepsis due to UTI /HCAP. * 12/06/16 CXR: IMPRESSION:1. tracheostomy tube in good position. 2. New right lower lobe pneumonia. 3. Atherosclerotic aortic calcification * INFECTIOUS DISEASE HISTORY: (+)MRSA BCx 10/30/16; (+)PSAR UTI = MDR sensitive to Amikacin & Primaxin, intermediate to Cefepime/Fortaz * Hx of ABD wall cellulitis and multiple infected decubs PHYSICAL EXAMINATION: GENERAL: 71 yo M w/chronic encephalopathy, VDRF HEENT: Head DSG, NGT secure NECK: Trached-> Vented CHEST: Rise symmetrical= Vented HEART: RRR ABDOMEN: Soft, peg, abd wall healing = Colostomy bag EXTREMITIES: Warm SKIN: Decubs, unstageable ID ASSESSMENT: 71 yo M w/chronic debility 2/2 multiple medical problems re-admitted with: 1. Sepis w/FEVERS >102.6 w/ leukocytosis due to Line sepsis + HCAP + UTI == Fever down since 12/08 * (+)BCx = CoNS leukocytosis -> due to ?LINE SEPSIS vs contaminant vs wounds? 2. HCAP => Aspiration PNA w/new right sided pulmonary infiltrate on CXR * Repeat respiratory cx pending * AUG 2016 RESP CX: Polymicrobial (+)MRSA/(+)Proteus Mirabilis/(+) ACHROMOBACTER SPECIES 3. Complicated UTI w/Pyuria on UA =12/06/16 UA: (+)PSAR w/ Pyuria > 200 WBCs * S/P 10/30/16 PSAR MDRO UTI sensitive to Amikacin & Primaxin 4. 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 Acute renal failure/CKD * Right kidney mass of unknown significance 6. GERD w/ prior EDG (+)distal esophagitis, duodenitis, gastric ulcers, dysphagia 7. Hx of cardiac arrhythmia 8. Hx of unstageable sacral wound * Prior wound Cx grew: MRSA, VRE, KP, GNR Proteus 9. Hx of ABD wall cellulitis prior admission due to GT leak 7. Hx of empiric Rx for scabies rash prior admission 8. Hx of MRSA PICC Line sepsis 10/30/16 INVASIVES: * PIV, Trach, PEG, FC, L-FEM TLC CURRENT ABX: TOTAL ABX DAY #5 =>Zyvox + Primaxin Vanco IV + Cefepime PRIOR ADMISSION: Zyvox, Levaquin, Cefepime ID RECOMMENDATIONS: => Avoid renal toxic meds 1. Patient has hx of VRE wounds & MDRO PSAR that was sensitive to Primaxin; NOW with VERITO. * Started Zyvox and Primaxin for improved MDRO ABX coverage that is also renal safe. 2. Continue ABX = Sputum cx sent and in process 3. Per notes EGD pending, possible today ? . . Problems: Consultation Date/Type/Reason Admit Date/Time Dec 06, 2016 at 17:18 Type of Consultation: ID Exam/Review of Systems Vital Signs Vitals Vital Signs Date Time Temp Pulse Resp B/P Pulse Ox O2 Delivery O2 Flow Rate FiO2 12/10/16 13:30 71 25 102/60 100 12/10/16 13:00 Mechanical Ventilator 12/10/16 12:00 99.5 12/10/16 11:26 40 Intake and Output 12/09/16 12/09/16 12/10/16 15:00 23:00 07:00 Intake Total 2730.25 ml 3766.67 ml 1200.93 ml Output Total 1400 ml 1175 ml 1170 ml Balance 1330.25 ml 2591.67 ml 30.93 ml Results Result Diagram: 12/10/16 0400 12/10/16 1500 Results 24 hrs Laboratory Tests Test 12/09/16 17:44 12/09/16 20:14 12/10/16 00:45 12/10/16 04:00 Bedside Glucose 133 136 148 White Blood Count 9.6 # Red Blood Count 2.99 L Hemoglobin 8.8 L Hematocrit 27.7 L Mean Corpuscular Volume 92.6 Mean Corpuscular Hemoglobin 29.4 Mean Corpuscular Hemoglobin Concent 31.8 L Red Cell Distribution Width 19.0 H Platelet Count 85 #L Mean Platelet Volume 12.9 H Neutrophils % 85.2 H Lymphocytes % 3.0 L Monocytes % 2.9 Eosinophils % 7.1 H Basophils % 0.1 Nucleated Red Blood Cells % 0.0 Neutrophils # 8.2 H Lymphocytes # 0.3 L Monocytes # 0.3 Eosinophils # 0.7 H Basophils # 0.0 Nucleated Red Blood Cells # 0.0 Sodium Level 157 H Potassium Level 3.2 L Chloride Level 125 H Carbon Dioxide Level 19 L Anion Gap 16 Blood Urea Nitrogen 109 H Creatinine 2.73 H Glucose Level 94 # Calcium Level 8.5 Phosphorus Level 4.7 Magnesium Level 2.1 Test 12/10/16 05:31 12/10/16 07:03 12/10/16 09:25 12/10/16 11:20 Bedside Glucose 103 97 Lab Scanned Report REFERENCE LAB Stool Occult Blood NEGATIVE Test 12/10/16 13:45 12/10/16 15:00 Bedside Glucose 101 Sodium Level 158 H Potassium Level 3.8 Chloride Level 127 H Carbon Dioxide Level 20 L Anion Gap 15 Blood Urea Nitrogen 100 H Creatinine 2.55 H Glucose Level 99 Calcium Level 8.8 Medications Medications Current Medications Ondansetron HCl (Zofran Inj) 4 mg Q6H PRN IV NAUSEA AND/OR VOMITING; Start at 18:00 Morphine Sulfate (morphine) 2 mg Q4H PRN IV PAIN LEVEL 7-10; Start 12/06/16 at 18:00 Pantoprazole (Protonix Iv) 40 mg BID@06,18 IV Last administered on 12/10/16t 05 :28; Admin Dose 40 MG; Start 12/06/16 at 18:00 Amiodarone HCl (Cordarone) 200 mg DAILY GTB Last administered on 12/10/16 09: 05; Admin Dose 200 MG; Start 12/07/16 at 09:00 Ascorbic Acid (Vitamin C) 500 mg DAILY GTB Last administered on 12/10/16 09:05 ; Admin Dose 500 MG; Start 12/07/16 at 09:00 Cholecalciferol (Vitamin D) 1,000 unit DAILY GTB Last administered on 09:05; Admin Dose 1,000 UNIT; Start 12/07/16 at 09:00 Eye Lubricant (Artificial Tears Oph) 2 drop BID BOTH EYES Last administered on 12/10/16 09:09; Admin Dose 2 DROP; Start 12/06/16 at 21:00 Zinc Sulfate (Zinc Sulfate) 220 mg DAILY GTB Last administered on 12/10/16 09: 05; Admin Dose 220 MG; Start 12/07/16 at 09:00 Insulin Glargine (Lantus) 6 unit DAILY@20 SC Last administered on 12/09/16 20: 18; Admin Dose 6 UNIT; Start 12/06/16 at 20:00 Miscellaneous Information 1 ea NOTE XX ; Start 12/06/16 at 19:00 Glucose (Glutose) 15 gm Q15M PRN PO DECREASED GLUCOSE; Start 12/06/16 at 19:00 Glucose (Glutose) 22.5 gm Q15M PRN PO DECREASED GLUCOSE; Start 12/06/16 at 19: 00 Dextrose (D50w Syringe) 25 ml Q15M PRN IV DECREASED GLUCOSE; Start 12/06/16 at 19:00 Dextrose (D50w Syringe) 50 ml Q15M PRN IV DECREASED GLUCOSE; Start 12/06/16 at 19:00 Glucagon (Glucagen) 1 mg Q15M PRN IM DECREASED GLUCOSE; Start 12/06/16 at 19:00 Glucose (Glutose) 15 gm Q15M PRN BUCCAL DECREASED GLUCOSE; Start 12/06/16 at 19 :00 Ferrous Sulfate (Feosol Liquid Cup) 300 mg DAILY GTB Last administered on 09:05; Admin Dose 300 MG; Start 12/07/16 at 09:00 Collagenase (Santyl) 1 applic DAILY TOP Last administered on 12/10/16 09:21; Admin Dose 1 APPLIC; Start 12/07/16 at 11:30 Collagenase 1 applic 1 applic PRN PRN TOP WOUND CARE; Start 12/07/16 at 11:00 Linezolid 300 ml @ 300 mls/hr Q12 IVPB Last administered on 12/10/16 10:25; Admin Dose 300 MLS/HR; Start 12/07/16 at 13:30 Imipenem/ Cilastatin Sodium (Primaxin 500 Mg/ 100 ml (Pmx)) 100 ml @ 100 mls/ hr Q12 IVPB Last administered on 12/10/16 09:05; Admin Dose 100 MLS/HR; Start 12/07/16 at 14:00 Acetaminophen 500 mg 500 mg Q4H PRN GTB PAIN AND OR ELEVATED TEMP Last administered on 12/08/16 20:08; Admin Dose 500 MG; Start 12/07/16 at 18:00 Norepinephrine/ Dextrose (Levophed/D5W) 500 ml @ 1.87 mls/hr TITRATE IV ; Start 12/07/16 at 23:45 Acetaminophen 650 mg 650 mg Q6H PRN GTB PAIN AND OR ELEVATED TEMP Last administered on 12/09/16 16:33; Admin Dose 650 MG; Start 12/08/16 at 11:00 Norepinephrine 16 mg/Dextrose 500 ml @ 1.87 mls/hr TITRATE IV Last administered on 12/09/16 19:28; Admin Dose 2.04 MLS/HR; Start 12/08/16 at 15:00 Dextrose (D5W) 1,000 ml @ 75 mls/hr [id number] IV Last administered on 12/10/16 09:07; Admin Dose 75 MLS/HR; Start 12/10/16 at 08:30 Insulin Aspart (Novolog Insulin Pen) NOVOLOG *MILD* ALGORITHM Q4 SC ; Start at 09:00 ERIC LIN NP Dec 10, 2016 15:52
[2016-12-10] MEDS ORDERED: ETOMIDATE 20 MG INJ ONE (17:13)
[2016-12-10] MEDS ORDERED: FENTAnyl 50 MCG/ML VIAL ONE (17:13)
[2016-12-10] MEDS ORDERED: LIDOCAINE 2% (SDV) 5 ML INJ ONE (17:17)
[2016-12-10] MEDS ORDERED: GLYCOPYRROLATE 0.4 MG INJ ONE (17:17)
[2016-12-10] MEDS: INSULIN GLARGINE [LANtus] 3 ML PEN SC SCH (20:01)
[2016-12-11] VITALS (19 sets, daily range): BP systolic 102–134; BP diastolic 61–71; PULSE 70–76; RESP 12–33
[2016-12-11] MEDS: INSULIN ASPART [NOVOLOG] 3 ML PEN SC SCH ×5 (01:00→17:00)
[2016-12-11] MEDS: ALBUTEROL 18 GM INHALER INH SCH ×3 (01:23→14:00)
--- NOTE | 2016-12-11 05:06 | GILP ---
DATE OF PROCEDURE: 12/10/2016 PROCEDURE: Esophagogastroduodenoscopy. BRIEF HISTORY AND INDICATIONS: The patient with history of gastric ulcerations with recurrent anemi a. PREMEDICATION: Monitored anesthesia care by anesthesiologist. SURGEON: Lucio Martínez MD. INSTRUMENT USED: Olympus panendoscopy. TECHNIQUE: After informed consent, with the patient/relatives understanding the procedure, its indic ations, potential risks and complications, including but not limited to: allergic reaction, bleeding , perforation or infection, and after all pertinent questions were answered to the patient's satisfa ction, the patient/relatives signed witnessed informed consent. Following this, premedication was administered slowly IV push under careful cardiovascular and respi ratory monitoring with pulse oximetry, automatic blood pressure and compounding pharmacy technician. Once the sedative effect was achieved the patient was place in the left lateral decubitus, the panen doscope was introduced and advanced under visual control. FINDINGS: Careful examination of the upper gastrointestinal tract, both on insertion as well as wit hdrawal of the instrument disclosed the following findings: ESOPHAGUS: The distal esophagus shows mild erythema and edema of the mucosa. No bleeding site is identified. STOMACH: Upon entrance to the stomach air was insufflated, the gastric cason distended normally. T here are 2 clips in previous ulceration which is completely healed. The gastrostomy tube is noted a nd previously noted, peristomal ulceration is completely healed as well. Pylorus is patent and within normal limits. DUODENUM: The duodenal bulb shows mild erythema and edema of the mucosa. No definitive bleeding si te is identified. The instrument was withdrawn reexamining the mucosa in detail. No additional abn ormalities are noted. The instrument was then withdrawn, the patient tolerated the procedure well and was transfer out of the endoscopy suite awake, and in good condition to continue recovery under observation IMPRESSION: 1. Mild distal esophagitis. 2. Two clips in the proximal stomach with complete healing of previous ulceration. Gastrostomy tub e in place, healed peristomal ulceration. 3. Mild gastritis and duodenitis. PLAN: Continue present regimen. The patient will have stool occult blood x3 and if evidence of sig nificant bleeding, we may consider colonoscopy. The case was reviewed with Dr. Phil Marquez who is the conservator for the patient and he is agreeable with the current plan. Dictated By: LUCIO MARTÍNEZ MS/NTS Conf#: [id number] [facility]#: [id number]
[2016-12-11] MEDS: PANTOPRAZOLE 40 MG INJ IV SCH ×2 (05:22→18:51)
--- NOTE | 2016-12-11 05:43 | PN ---
DATE: 12/10/2016 SUBJECTIVE: The patient remains critical, has currently been weaned off pressor support. The patie nt remains tachypneic, pending EGD this morning. The patient's free water flushes were held overnig ht. No other events noted. OBJECTIVE: VITAL SIGNS: Blood pressure is 105/52, respirations 31, pulse 70, temperature 98.7. HEENT: Head is normocephalic. NECK: Shows trach. HEART: Regular rate. LUNGS: Show diminished breath sounds at the base. ABDOMEN: Soft, nontender to palpation without rebound or guarding. EXTREMITIES: Negative for clubbing, cyanosis. No edema. DERMATOLOGIC: No rashes. MUSCULOSKELETAL: No joint effusions. NEUROLOGIC: No change in exam. MEDICATIONS: The patient's medications have been reviewed. LABORATORY DATA: Showed sodium 157, potassium 3.2, chloride 102, BUN 109, creatinine 2.____. White count 9.6, hemoglobin 8.8, hematocrit 27.7, platelet count is 85. ASSESSMENT AND PLAN: 1. ____ acute kidney injury on top of chronic kidney disease ____ with baseline creatinine of 1.4 mg/dL. Etiology of acute kidney injury is secondary to acute tubular necrosis, likely from prerenal volume depletion. The patient's renal function has slowly been improving with IV fluids and suppor tive care. At this point, no immediate need for renal replacement therapy. Continue current treatm ent plan. 2. Severe hyponatremia. The patient's free water deficit is approximately 5.5 L. Etiology is seco ndary to insensible losses, osmotic diuresis. The patient's urine osmolarity is approximately 300 t o 400 mL mOsm per liter, likely due to acute kidney injury. Would expect it to be higher in the set ting of this level of hyponatremia. At this point, continue free water flushes and hypotonic fluids as the patient is responding. 3. Continue to monitor serial sodium levels. 4. Hypokalemia. ____ replete with potassium chloride. 5. Anemia. The patient's hemoglobin levels remain low. Did receive blood transfusion. Pending EG D. We will follow up with GI. 6. Sepsis status post shock. Etiology secondary to pneumonia. The patient is clinically improving with current medical management. Continue antibiotic therapy. Follow up with infectious disease. 7. Diabetes, continue Accu-Cheks and sliding scale. 8. Arrhythmia. Continue amiodarone. 9. Decubitus wound. Continue wound care. 10. Chronic encephalopathy. No change. 11. ____ reviewed. ABG has been reviewed. 12. Dysphagia, status post percutaneous endoscopic gastrostomy. Continue tube feedings. Dictated By: JACOB GOMEZ/LESLY Conf#: [id number] DID#: [id number]
[2016-12-11] MEDS: COLLAGENASE 30 GM TUBE TOP SCH (09:00)
[2016-12-11] MEDS: ARTIFICIAL TEARS 15 ML OPH BOTH EYES SCH (09:09)
[2016-12-11] MEDS: AMIODARONE 200 MG TAB GTB SCH (09:12)
[2016-12-11] MEDS: CHOLECALCIFEROL 1,000 UNIT TAB GTB SCH (09:12)
[2016-12-11] MEDS: ZINC SULFATE 220 MG CAP GTB SCH (09:12)
[2016-12-11] MEDS: FERROUS SULFATE 60 MG/ML 5ML CUP GTB SCH (09:12)
[2016-12-11] MEDS: ASCORBIC ACID 500 MG TAB GTB SCH (09:12)
[2016-12-11] MEDS: LINEZOLID 600 MG/D5W (PMX) 300 ML IVPB SCH (09:13)
[2016-12-11] MEDS: IMIPENEM-CILAST 500MG IV (PMX) 100 ML IVPB SCH (09:13)
[2016-12-11 10:06] LABS: ADD SCAN DIFF NO
[2016-12-11 10:18] LABS: ABNORMAL IP MESSAGE 1; HEMATOCRIT 28.6 % (42.0-52.0); HEMOGLOBIN 8.9 g/dl (14.0-18.0); MEAN CORPUSCULAR HGB CONC 31.1 g/dl (32.0-37.0); MEAN CORPUSCULAR VOLUME 93.2 fl (82.0-101.0); MEAN PLATELET VOLUME 13.7 fl (7.4-10.4); PLATELET COUNT 91 10^3/UL (140-415); RED BLOOD COUNT 3.07 10^6/ul (4.70-6.10); RED CELL DISTRIBUTION WIDTH 18.4 % (11.5-14.5); WHITE BLOOD COUNT 7.8 10^3/ul (4.8-10.8)
[2016-12-11 10:23] LABS: CALCIUM 9.1 mg/dl (8.4-10.2); CREATININE 2.45 mg/dl (0.61-1.24); POTASSIUM 3.6 mmol/L (3.5-5.1)
--- NOTE | 2016-12-11 10:58 | PN ---
DATE: 12/11/2016 SUBJECTIVE: The patient was transferred from intensive care unit to telemetry. Overnight there has been no acute events noted. No hemoptysis, hematemesis or hematochezia. OBJECTIVE: VITAL SIGNS: Blood pressure is 109/66, respiration 26, pulse 68, temperature is 99.9. I's AND O'S: The patient had 1.8 liters in, 2.3 liters out. HEENT: Head is normocephalic. NECK: Supple. HEART: Regular rate. LUNGS: Show diminished breath sounds at the base. ABDOMEN: Soft, nontender to palpation. No rebound or guarding. EXTREMITIES: Negative for clubbing, cyanosis. Trace edema. DERMATOLOGIC: No rashes. MUSCULOSKELETAL: No joint effusions. NEUROLOGIC: No change in exam. MEDICATIONS: The patient's medications have been reviewed. LABORATORY DATA: Shows sodium 158, potassium 3.8, chloride 127, BUN 100, creatinine 2.55. White co unt 9.6, hemoglobin 8.8, hematocrit 27.7, platelet count is 85. ASSESSMENT AND PLAN: 1. Nonoliguric acute kidney injury on top of chronic kidney disease stage IIIB/IV, with a baseline creatinine of 1.4 mg/dL. Etiology of acute kidney injury is secondary to acute tubular necrosis. Alfred giraldo's renal function has slowly been improving with supportive care. At this point, continue cur rent treatment plan. Continue current IV hydration. Continue to renally dose all medications. 2. Chronic kidney disease stage IV. The patient has a baseline creatinine around 1 mg to 1.4 mg/dL . The patient's creatinine is greatly over estimated EGFR as the patient has marked muscle wasting. At this point continue to treat underlying acute kidney injury as stated above. 3. Severe hypernatremia, patient has a free water deficit of approximately 4.5 liters. Etiology sec ondary to insensible losses, osmotic diuresis. The patient has a functional partial diabetes insipi dus as his urine osmolarity is only approximately 400 mL per liter, which is inappropriate for his l evel of hypernatremia. At this point, will continue hypertonic fluids, free water flushes as his so dium levels have been improving. Continue to monitor serial sodium levels. No immediate need for D DAVP at this time. 4. Hypokalemia. Continue to monitor and replete. 5. Anemia. Continue to monitor hemoglobin and hematocrit levels. The patient has been evaluated b y GI. Continue blood transfusions as needed. 6. Sepsis, status post shock secondary to pneumonia. Continue current antibiotic regimen. 7. Diabetes, continue Accu-Cheks and sliding scale. 8. Arrhythmia. Continue amiodarone. 9. Decubitus wound. Continue wound care. 10. Chronic encephalopathy. No change. 11. Dysphagia status post PEG tube. Continue tube feeding. Dictated By: JACOB GOMEZ/LESLY Conf#: [id number] DID#: [id number]
[2016-12-11] MEDS: DEXTROSE 5% 1,000 ML IV SCH ×2 (11:10→14:50)
--- NOTE | 2016-12-11 11:18 | PDOCDIS ---
Discharge Instructions CONDITION Patient Condition: Fair HOME CARE INSTRUCTIONS: Special Diet: G tube feeding / GlucIAM Salmon MD Dec 11, 2016 11:18
[2016-12-11] MEDS ORDERED: LANT3I SC (11:24)
[2016-12-11] MEDS ORDERED: SAN30GM TOP (11:24)
[2016-12-11] MEDS ORDERED: Acetaminophen Liquid GTB (11:24)
[2016-12-11 13:54] LABS: EOSINOPHILS # 0.4 10^3/ul (0.0-0.5); LYMPHOCYTES # 0.3 10^3/ul (0.8-2.9); MONOCYTE # 0.3 10^3/ul (0.3-0.9); NEUTROPHIL # 6.8 10^3/ul (1.6-7.5); POLYCHROMASIA RARE
--- NOTE | 2016-12-11 14:06 | DS ---
DATE OF ADMISSION: 12/06/2016 DATE OF DISCHARGE: 12/11/2016 CONSULTANTS: 1. Dr. Kyle Kelly 2. Dr. Oswald Tanner 3. Dr. Rocío Martínez 4. Dr. Rafael Paniagua 5. Dr. Alfred Proctor PROCEDURES: Esophagogastroduodenoscopy with the finding of mild distal esophagitis, of the pr oximal stomach with the complete healing of previous ulceration. Gastrostomy tube in place, healed periosteum ulceration, mild gastritis and duodenitis. DIAGNOSES 1. Mild distal esophagitis, status post PEG tube, chronic mild gastritis, duodenitis, nonoliguric a cute renal insufficiency, on chronic kidney disease, stage IIIB/IV. 2. Chronic kidney disease stage IV. 3. Severe hypernatremia. 4. Hypokalemia. 5. Anemia of chronic disease. 6. Sepsis. 7. Diabetes mellitus. 8. Arrhythmia. 9. Decubitus wound. 10. Chronic encephalopathy. 11. Dysphagia status post PEG tube. 12. Ventilatory dependent respiratory failure. MEDICATIONS: 1. Tylenol. 2. Albuterol. 3. Amiodarone. 4. Artificial tears. 5. Vitamin C. 6. Vitamin D. 7. Santyl. 8. D5W x48 hours. 9. Ferrous sulfate. 10. Imipenem x7 days. 11. Insulin sliding scale. 12. Lantus 6 units. 13. Tramadol. 14. Prevacid. 15. Calcium carbonate. 16. Zinc sulfate. 17. Probiotics. 18. 19. Paroex. 20. Cranberry extract. 21. Colace. 22. Multivitamin. 23. Glucerna 35 mL. 24. Free water 100 mL G-tube q.6h. INSTRUCTIONS: CBC, BMP daily x2 days. HOSPITAL COURSE: This is a 71-year-old gentleman who is known to me from her previous hospitalizati on with a chronic encephalopathy, bedridden with trach connected to vent, history of gastric ulcer, GI bleed, distal esophagitis, type 2 diabetes mellitus, chronic kidney disease, dysphagia, cardiac a rrhythmia, recurrent hospitalization with severe sacral decubitus ulcers bilateral lower extremity, who was transferred from [facility] secondary to having acute on chronic chiki l insufficiency, hyperkalemia and hypernatremia. The patient was treated with Kayexalate was transf erred to emergency room was started on imipenem and Zosyn secondary to having sepsis and was found t o be severely dehydrated. The patient's WBC was greater than 200. Urinalysis positive for leukocyte esterase. Infectious dis ease doctor was consulted. Patient's urine has Pseudomonas aeruginosa. Blood culture coagulase neg ative staph, respiratory culture gram-negative colby which was managed by infectious disease. The pat ient was seen and evaluated by fast food fry cook. As stated above, he is vent dependent. He was found to be anemic with hemoglobin of 6.8. He was seen and evaluated by supervisor brooder farm, which demonst rated gastritis and duodenitis, an improvement from previous evaluation, mild distal esophagitis. T here was a complete healed previous ulceration. The patient was continued on PPI. The patient was seen and evaluated by wound care for his severe sacral decubitus, he was also found to be in severe dehydration with BUN of 240, creatinine of 4.65. He was placed on aggressive IV fluid and he was al so found to be severe hypernatremic with sodium 177 and was seen and evaluated by nephrology was genaro jason on D5W and was also started on PEG tube free water. The patient's sodium has been improving sig nificantly to 154. His creatinine 2.45, BUN of 86. As per nephrology, the patient needs to be cont inued on D5W and also has written specifically that the patient should be continued on the free wate r through G-tube. At this time, the patient is in fair condition to be transferred back to [facility] facility. He has multiple comorbidities as above and he is prone to have recurrent sepsis and recurrent worsen ing of his condition. This has been discussed with his DPOA in previous hospitalizations and during this course of hospitalization. LABORATORIES: Sodium 154, potassium 3.6, chloride 130, bicarbonate 20, BUN 86, creatinine 2.45, glu cose 91, calcium 9.1, phosphorus 4.4. WBC 7.8, hemoglobin 8.9, hematocrit 28.6, platelets 91. Dictated By: IAM GÓMEZ MD PN/NTS Conf#: [id number] DID#: [id number] CC: [facility];*EndCC*
--- NOTE | 2016-12-11 14:25 | CONS ---
Date/Time of Note Date/Time of Note DATE: 12/11/16 TIME: 14:23 Assessment/Plan Assessment/Plan Additional Assessment/Plan Ventilator settings; AC of 16, tidal volume 500, PEEP of 5, 35% FiO2. Assessment recommendations; 1. Patient admitted for sepsis from UTI. 2. Advanced dementia. 3. Chronic respiratory failure, patient remains ventilator dependent. 4. Hypernatremia, possibly from diabetes insipidus. 5. Chronic renal insufficiency. Continue current treatment. Give the patient a trial of desmopressin subcutaneously twice a day at least for 3 days. Follow-up serum sodium. Consultation Date/Type/Reason Admit Date/Time Dec 06, 2016 at 17:18 Initial Consult Date Type of Consultation: Pulmonary 24 HR Interval Summary Free Text/Dictation Patient condition remains unchanged. Remains unresponsive. Has remained hemodynamically stable. General exam; elderly male, on ventilator via tracheostomy currently in no distress, unresponsive. Exam/Review of Systems Vital Signs Vitals Vital Signs Date Time Temp Pulse Resp B/P Pulse Ox O2 Delivery O2 Flow Rate FiO2 12/11/16 12:22 73 12/11/16 12:16 99.3 12/11/16 11:14 12 119/71 99 12/11/16 11:10 35 12/10/16 20:00 Mechanical Ventilator Intake and Output 12/10/16 12/10/16 12/11/16 15:00 23:00 07:00 Intake Total 1325 ml 375 ml Output Total 1450 ml 700 ml Balance -125 ml -325 ml Exam HEENT exam is; supple neck, no JVD. No lymphadenopathy. Midline trachea. No thyromegaly. Tracheostomy in place with clean insertion site. No neck masses. Chest examination AK: Diminished but clear vessel. S1-S2 audible, no murmurs. Regular rhythm. Abdomen examination; soft, G-tube in place. No organomegaly. Bowel sounds audible. Extremity exam; no peripheral edema. Patient has contractures involving all 4 extremities. CASTING MOLDER examination; patient remains unresponsive. Results Result Diagram: 12/11/16 0940 12/11/16 0940 Results 24 hrs Laboratory Tests Test 12/10/16 15:00 12/10/16 18:14 12/10/16 19:58 12/10/16 22:57 Sodium Level 158 H Potassium Level 3.8 Chloride Level 127 H Carbon Dioxide Level 20 L Anion Gap 15 Blood Urea Nitrogen 100 H Creatinine 2.55 H Glucose Level 99 Calcium Level 8.8 Bedside Glucose 105 98 85 Test 12/11/16 02:17 12/11/16 05:21 12/11/16 07:42 12/11/16 09:40 Bedside Glucose 104 88 99 White Blood Count 7.8 Red Blood Count 3.07 L Hemoglobin 8.9 L Hematocrit 28.6 L Mean Corpuscular Volume 93.2 Mean Corpuscular Hemoglobin 29.0 Mean Corpuscular Hemoglobin Concent 31.1 L Red Cell Distribution Width 18.4 H Platelet Count 91 L Mean Platelet Volume 13.7 H Neutrophils % 87.0 H Lymphocytes % 4.0 L Monocytes % 4.0 Eosinophils % 5.0 Neutrophils # 6.8 Lymphocytes # 0.3 L Monocytes # 0.3 Eosinophils # 0.4 Differential Comment MANUAL DIFF Polychromasia RARE Sodium Level 154 H Potassium Level 3.6 Chloride Level 130 H Carbon Dioxide Level 20 L Anion Gap 8 Blood Urea Nitrogen 86 H Creatinine 2.45 H Glucose Level 91 Calcium Level 9.1 Phosphorus Level 4.4 Test 12/11/16 11:53 Bedside Glucose 111 Medications Medications Current Medications Ondansetron HCl (Zofran Inj) 4 mg Q6H PRN IV NAUSEA AND/OR VOMITING; Start at 18:00 Morphine Sulfate (morphine) 2 mg Q4H PRN IV PAIN LEVEL 7-10; Start 12/06/16 at 18:00 Pantoprazole (Protonix Iv) 40 mg BID@06,18 IV Last administered on 12/11/16 05 :22; Admin Dose 40 MG; Start 12/06/16 at 18:00 Amiodarone HCl (Cordarone) 200 mg DAILY GTB Last administered on 12/11/16 09: 12; Admin Dose 200 MG; Start 12/07/16 at 09:00 Ascorbic Acid (Vitamin C) 500 mg DAILY GTB Last administered on 12/11/16 09:12 ; Admin Dose 500 MG; Start 12/07/16 at 09:00 Cholecalciferol (Vitamin D) 1,000 unit DAILY GTB Last administered on 09:12; Admin Dose 1,000 UNIT; Start 12/07/16 at 09:00 Eye Lubricant (Artificial Tears Oph) 2 drop BID BOTH EYES Last administered on 12/11/16 09:09; Admin Dose 2 DROP; Start 12/06/16 at 21:00 Zinc Sulfate (Zinc Sulfate) 220 mg DAILY GTB Last administered on 12/11/16 09: 12; Admin Dose 220 MG; Start 12/07/16 at 09:00 Insulin Glargine (Lantus) 6 unit DAILY@20 SC Last administered on 12/10/16 20: 01; Admin Dose 6 UNIT; Start 12/06/16 at 20:00 Miscellaneous Information 1 ea NOTE XX ; Start 12/06/16 at 19:00 Glucose (Glutose) 15 gm Q15M PRN PO DECREASED GLUCOSE; Start 12/06/16 at 19:00 Glucose (Glutose) 22.5 gm Q15M PRN PO DECREASED GLUCOSE; Start 12/06/16 at 19: 00 Dextrose (D50w Syringe) 25 ml Q15M PRN IV DECREASED GLUCOSE; Start 12/06/16 at 19:00 Dextrose (D50w Syringe) 50 ml Q15M PRN IV DECREASED GLUCOSE; Start 12/06/16 at 19:00 Glucagon (Glucagen) 1 mg Q15M PRN IM DECREASED GLUCOSE; Start 12/06/16 at 19:00 Glucose (Glutose) 15 gm Q15M PRN BUCCAL DECREASED GLUCOSE; Start 12/06/16 at 19 :00 Ferrous Sulfate (Feosol Liquid Cup) 300 mg DAILY GTB Last administered on 09:12; Admin Dose 300 MG; Start 12/07/16 at 09:00 Collagenase (Santyl) 1 applic DAILY TOP Last administered on 12/10/16 09:21; Admin Dose 1 APPLIC; Start 12/07/16 at 11:30 Collagenase 1 applic 1 applic PRN PRN TOP WOUND CARE; Start 12/07/16 at 11:00 Linezolid 300 ml @ 300 mls/hr Q12 IVPB Last administered on 12/11/16 09:13; Admin Dose 300 MLS/HR; Start 12/07/16 at 13:30 Imipenem/ Cilastatin Sodium (Primaxin 500 Mg/ 100 ml (Pmx)) 100 ml @ 100 mls/ hr Q12 IVPB Last administered on 12/11/16 09:13; Admin Dose 100 MLS/HR; Start 12/07/16 at 14:00 Acetaminophen (Tylenol Liquid) 500 mg Q4H PRN GTB PAIN AND OR ELEVATED TEMP Last administered on 12/08/16 20:08; Admin Dose 500 MG; Start 12/07/16 at 18:00 Acetaminophen 650 mg 650 mg Q6H PRN GTB PAIN AND OR ELEVATED TEMP Last administered on 12/09/16 16:33; Admin Dose 650 MG; Start 12/08/16 at 11:00 Dextrose (D5W) 1,000 ml @ 75 mls/hr [id number] IV Last administered on 12/10/16 21:50; Admin Dose 75 MLS/HR; Start 12/10/16 at 08:30 Insulin Aspart (Novolog Insulin Pen) NOVOLOG *MILD* ALGORITHM Q4 SC ; Start at 09:00 AARON HUFF Dec 11, 2016 14:25
[2016-12-11] MEDS ORDERED: DESMOPRESSIN 4 MCG INJ SC SCH (14:30)
--- NOTE | 2016-12-11 16:08 | PN ---
Date/Time of Note Date/Time of Note DATE: 12/11/16 TIME: 16:02 Assessment/Plan VTE Prophylaxis VTE Prophylaxis Intervention: SCD's Lines/Catheters IV Catheter Type (from Nrs): Central Line Central line still needed: Yes Urinary Cath still in place: Yes Reason Cath still needed: urinary retention Assessment/Plan Assessment/Plan Severe recurrent anemia * Ventilator-dependent respiratory failure * Distal esophagitis, duodenitis, gastric ulcers * EGD 12/10/2016 Mild distal esophagitis. Two clips in the proximal stomach with complete healing of previous ulceration. Gastrostomy tube in place, healed peristomal ulceration. Mild gastritis and duodenitis. * Diabetes mellitus * Chronic kidney disease * Cardiac arrhythmia * Decubitus pressure ulcers * Right kidney mass. Hypernatremia controlled Plan * Continue present regimen * stool for occult blood x2 Subjective 24 Hr Interval Summary Free Text/Dictation * Course reviewed with RN * patient seen and examined * EGD 12/11/2015 Mild distal esophagitis. Two clips in the proximal stomach with complete healing of previous ulceration. Gastrostomy tube in place, healed peristomal ulceration. . Mild gastritis and duodenitis. * occult blood negative Exam/Review of Systems Vital Signs Vitals Vital Signs Date Time Temp Pulse Resp B/P Pulse Ox O2 Delivery O2 Flow Rate FiO2 12/11/16 15:45 72 26 98 35 12/11/16 15:38 98.2 134/64 12/10/16 20:00 Mechanical Ventilator Intake and Output 12/10/16 12/10/16 12/11/16 15:00 23:00 07:00 Intake Total 1325 ml 375 ml Output Total 1450 ml 700 ml Balance -125 ml -325 ml Exam Constitutional: frail Eyes: PERRL, nl sclera Neck: non-tender Respiratory: clear to auscultation, diminished breath sounds, normal air movement, other (trach to vent) Cardiovascular: nl pulses, regular rate and rhythm Gastrointestinal: nl liver, spleen, other (g tube in plaved), soft, No rebound or guarding Genitourinary - Male: other (cody catheter) Extremities: normal pulses Skin: other (multiple decubitus) Results Result Diagram: 12/11/16 0940 12/11/16 0940 Results 24 hrs Laboratory Tests Test 12/10/16 18:14 12/10/16 19:58 12/10/16 22:57 12/11/16 02:17 Bedside Glucose 105 98 85 104 Test 12/11/16 05:21 12/11/16 07:42 12/11/16 09:40 12/11/16 11:53 Bedside Glucose 88 99 111 White Blood Count 7.8 Red Blood Count 3.07 L Hemoglobin 8.9 L Hematocrit 28.6 L Mean Corpuscular Volume 93.2 Mean Corpuscular Hemoglobin 29.0 Mean Corpuscular Hemoglobin Concent 31.1 L Red Cell Distribution Width 18.4 H Platelet Count 91 L Mean Platelet Volume 13.7 H Neutrophils % 87.0 H Lymphocytes % 4.0 L Monocytes % 4.0 Eosinophils % 5.0 Neutrophils # 6.8 Lymphocytes # 0.3 L Monocytes # 0.3 Eosinophils # 0.4 Differential Comment MANUAL DIFF Polychromasia RARE Sodium Level 154 H Potassium Level 3.6 Chloride Level 130 H Carbon Dioxide Level 20 L Anion Gap 8 Blood Urea Nitrogen 86 H Creatinine 2.45 H Glucose Level 91 Calcium Level 9.1 Phosphorus Level 4.4 Medications Medications Current Medications Ondansetron HCl (Zofran Inj) 4 mg Q6H PRN IV NAUSEA AND/OR VOMITING; Start at 18:00 Morphine Sulfate (morphine) 2 mg Q4H PRN IV PAIN LEVEL 7-10; Start 12/06/16 at 18:00 Pantoprazole (Protonix Iv) 40 mg BID@06,18 IV Last administered on 12/11/16 05 :22; Admin Dose 40 MG; Start 12/06/16 at 18:00 Amiodarone HCl (Cordarone) 200 mg DAILY GTB Last administered on 12/11/16 09: 12; Admin Dose 200 MG; Start 12/07/16 at 09:00 Ascorbic Acid (Vitamin C) 500 mg DAILY GTB Last administered on 12/11/16 09:12 ; Admin Dose 500 MG; Start 12/07/16 at 09:00 Cholecalciferol (Vitamin D) 1,000 unit DAILY GTB Last administered on 09:12; Admin Dose 1,000 UNIT; Start 12/07/16 at 09:00 Eye Lubricant (Artificial Tears Oph) 2 drop BID BOTH EYES Last administered on 12/11/16 09:09; Admin Dose 2 DROP; Start 12/06/16 at 21:00 Zinc Sulfate (Zinc Sulfate) 220 mg DAILY GTB Last administered on 12/11/16 09: 12; Admin Dose 220 MG; Start 12/07/16 at 09:00 Insulin Glargine (Lantus) 6 unit DAILY@20 SC Last administered on 12/10/16 20: 01; Admin Dose 6 UNIT; Start 12/06/16 at 20:00 Miscellaneous Information 1 ea NOTE XX ; Start 12/06/16 at 19:00 Glucose (Glutose) 15 gm Q15M PRN PO DECREASED GLUCOSE; Start 12/06/16 at 19:00 Glucose (Glutose) 22.5 gm Q15M PRN PO DECREASED GLUCOSE; Start 12/06/16 at 19: 00 Dextrose (D50w Syringe) 25 ml Q15M PRN IV DECREASED GLUCOSE; Start 12/06/16 at 19:00 Dextrose (D50w Syringe) 50 ml Q15M PRN IV DECREASED GLUCOSE; Start 12/06/16 at 19:00 Glucagon (Glucagen) 1 mg Q15M PRN IM DECREASED GLUCOSE; Start 12/06/16 at 19:00 Glucose (Glutose) 15 gm Q15M PRN BUCCAL DECREASED GLUCOSE; Start 12/06/16 at 19 :00 Ferrous Sulfate (Feosol Liquid Cup) 300 mg DAILY GTB Last administered on 09:12; Admin Dose 300 MG; Start 12/07/16 at 09:00 Collagenase (Santyl) 1 applic DAILY TOP Last administered on 12/10/16 09:21; Admin Dose 1 APPLIC; Start 12/07/16 at 11:30 Collagenase 1 applic 1 applic PRN PRN TOP WOUND CARE; Start 12/07/16 at 11:00 Linezolid 300 ml @ 300 mls/hr Q12 IVPB Last administered on 12/11/16 09:13; Admin Dose 300 MLS/HR; Start 12/07/16 at 13:30 Imipenem/ Cilastatin Sodium (Primaxin 500 Mg/ 100 ml (Pmx)) 100 ml @ 100 mls/ hr Q12 IVPB Last administered on 12/11/16 09:13; Admin Dose 100 MLS/HR; Start 12/07/16 at 14:00 Acetaminophen (Tylenol Liquid) 500 mg Q4H PRN GTB PAIN AND OR ELEVATED TEMP Last administered on 12/08/16 20:08; Admin Dose 500 MG; Start 12/07/16 at 18:00 Acetaminophen 650 mg 650 mg Q6H PRN GTB PAIN AND OR ELEVATED TEMP Last administered on 12/09/16 16:33; Admin Dose 650 MG; Start 12/08/16 at 11:00 Dextrose (D5W) 1,000 ml @ 75 mls/hr [id number] IV Last administered on 12/11/16 14:50; Admin Dose 75 MLS/HR; Start 12/10/16 at 08:30 Insulin Aspart (Novolog Insulin Pen) NOVOLOG *MILD* ALGORITHM Q4 SC ; Start at 09:00 Desmopressin Acetate (Ddavp) 2 mcg BID SC ; Start 12/11/16 at 14:30 LUCIO LEWIS MD Dec 11, 2016 16:08
--- NOTE | 2016-12-11 17:17 | CONS ---
Date/Time of Note Date/Time of Note DATE: 12/11/16 TIME: 17:13 Assessment/Plan Assessment/Plan Chief Complaint/Hosp Course ID PROGRESS NOTE TOTAL ABX DAY #6 =>Zyvox + Primaxin s/p Vanco IV + Cefepime 24H INTERVAL SUMMARY * POD #1-> s/p EGD 12/10/2016 Mild distal esophagitis. Two clips in the proximal stomach with complete healing of previous ulceration. Gastrostomy tube in place, healed peristomal ulceration. Mild gastritis and duodenitis. * (+)GPC BCx = CONS & (+)GNR Urine =PSAR ISHAN STAIN Final POLYMORPH. LEUKOCYTE 1+ GRAM NEGATIVE RODS 1+ RESPIRATORY CULTURE Preliminary Organism 1 GRAM NEGATIVE RADHAMES QUANTITY 1+ PHYSICAL EXAMINATION: GENERAL: 71 yo M w/chronic encephalopathy, VDRF HEENT: Head DSG, NGT secure NECK: Trached-> Vented CHEST: Rise symmetrical= Vented HEART: RRR ABDOMEN: Soft, peg, abd wall healing = Colostomy bag EXTREMITIES: Warm SKIN: Decubs, unstageable ID ASSESSMENT: 71 yo M w/chronic debility 2/2 multiple medical problems re-admitted with: 1. Sepis w/FEVERS >102.6 w/ leukocytosis due to Line sepsis + HCAP + UTI == Fever down since 12/08 * (+)BCx = CoNS leukocytosis -> due to ?LINE SEPSIS vs contaminant vs wounds? 2. HCAP => Aspiration PNA w/new right sided pulmonary infiltrate on CXR * Repeat respiratory cx pending * AUG 2016 RESP CX: Polymicrobial (+)MRSA/(+)Proteus Mirabilis/(+) ACHROMOBACTER SPECIES 3. Complicated UTI w/Pyuria on UA =12/06/16 UA: (+)PSAR w/ Pyuria > 200 WBCs * S/P 10/30/16 PSAR MDRO UTI sensitive to Amikacin & Primaxin 4. 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 Acute renal failure/CKD * Right kidney mass of unknown significance 6. GERD w/ prior EDG (+)distal esophagitis, duodenitis, gastric ulcers, dysphagia 7. Hx of cardiac arrhythmia 8. Hx of unstageable sacral wound * Prior wound Cx grew: MRSA, VRE, KP, GNR Proteus 9. Hx of ABD wall cellulitis prior admission due to GT leak 7. Hx of empiric Rx for scabies rash prior admission 8. Hx of MRSA PICC Line sepsis 10/30/16 INVASIVES: * PIV, Trach, PEG, FC, L-FEM TLC CURRENT ABX: TOTAL ABX DAY #6 =>Zyvox + Primaxin Vanco IV + Cefepime PRIOR ADMISSION: Zyvox, Levaquin, Cefepime ID RECOMMENDATIONS: => Avoid renal toxic meds 1. Cons (+)BCx is likely skin contaminant 2. May DC back to SNF on Primaxin to complete 10 days for PSAR UTI today is day #6/10 . . Problems: Consultation Date/Type/Reason Admit Date/Time Dec 06, 2016 at 17:18 Type of Consultation: ID Exam/Review of Systems Vital Signs Vitals Vital Signs Date Time Temp Pulse Resp B/P Pulse Ox O2 Delivery O2 Flow Rate FiO2 12/11/16 16:28 76 12/11/16 15:45 26 98 35 12/11/16 15:38 98.2 134/64 12/10/16 20:00 Mechanical Ventilator Intake and Output 12/10/16 12/10/16 12/11/16 15:00 23:00 07:00 Intake Total 1325 ml 375 ml Output Total 1450 ml 700 ml Balance -125 ml -325 ml Results Result Diagram: 12/11/16 0940 12/11/16 0940 Results 24 hrs Laboratory Tests Test 12/10/16 18:14 12/10/16 19:58 12/10/16 22:57 12/11/16 02:17 Bedside Glucose 105 98 85 104 Test 12/11/16 05:21 12/11/16 07:42 12/11/16 09:40 12/11/16 11:53 Bedside Glucose 88 99 111 White Blood Count 7.8 Red Blood Count 3.07 L Hemoglobin 8.9 L Hematocrit 28.6 L Mean Corpuscular Volume 93.2 Mean Corpuscular Hemoglobin 29.0 Mean Corpuscular Hemoglobin Concent 31.1 L Red Cell Distribution Width 18.4 H Platelet Count 91 L Mean Platelet Volume 13.7 H Neutrophils % 87.0 H Lymphocytes % 4.0 L Monocytes % 4.0 Eosinophils % 5.0 Neutrophils # 6.8 Lymphocytes # 0.3 L Monocytes # 0.3 Eosinophils # 0.4 Differential Comment MANUAL DIFF Polychromasia RARE Sodium Level 154 H Potassium Level 3.6 Chloride Level 130 H Carbon Dioxide Level 20 L Anion Gap 8 Blood Urea Nitrogen 86 H Creatinine 2.45 H Glucose Level 91 Calcium Level 9.1 Phosphorus Level 4.4 Medications Medications Current Medications Ondansetron HCl (Zofran Inj) 4 mg Q6H PRN IV NAUSEA AND/OR VOMITING; Start at 18:00 Morphine Sulfate (morphine) 2 mg Q4H PRN IV PAIN LEVEL 7-10; Start 12/06/16 at 18:00 Pantoprazole (Protonix Iv) 40 mg BID@06,18 IV Last administered on 12/11/16 05 :22; Admin Dose 40 MG; Start 12/06/16 at 18:00 Amiodarone HCl (Cordarone) 200 mg DAILY GTB Last administered on 12/11/16 09: 12; Admin Dose 200 MG; Start 12/07/16 at 09:00 Ascorbic Acid (Vitamin C) 500 mg DAILY GTB Last administered on 12/11/16 09:12 ; Admin Dose 500 MG; Start 12/07/16 at 09:00 Cholecalciferol (Vitamin D) 1,000 unit DAILY GTB Last administered on 09:12; Admin Dose 1,000 UNIT; Start 12/07/16 at 09:00 Eye Lubricant (Artificial Tears Oph) 2 drop BID BOTH EYES Last administered on 12/11/16 09:09; Admin Dose 2 DROP; Start 12/06/16 at 21:00 Zinc Sulfate (Zinc Sulfate) 220 mg DAILY GTB Last administered on 12/11/16 09: 12; Admin Dose 220 MG; Start 12/07/16 at 09:00 Insulin Glargine (Lantus) 6 unit DAILY@20 SC Last administered on 12/10/16 20: 01; Admin Dose 6 UNIT; Start 12/06/16 at 20:00 Miscellaneous Information 1 ea NOTE XX ; Start 12/06/16 at 19:00 Glucose (Glutose) 15 gm Q15M PRN PO DECREASED GLUCOSE; Start 12/06/16 at 19:00 Glucose (Glutose) 22.5 gm Q15M PRN PO DECREASED GLUCOSE; Start 12/06/16 at 19: 00 Dextrose (D50w Syringe) 25 ml Q15M PRN IV DECREASED GLUCOSE; Start 12/06/16 at 19:00 Dextrose (D50w Syringe) 50 ml Q15M PRN IV DECREASED GLUCOSE; Start 12/06/16 at 19:00 Glucagon (Glucagen) 1 mg Q15M PRN IM DECREASED GLUCOSE; Start 12/06/16 at 19:00 Glucose (Glutose) 15 gm Q15M PRN BUCCAL DECREASED GLUCOSE; Start 12/06/16 at 19 :00 Ferrous Sulfate (Feosol Liquid Cup) 300 mg DAILY GTB Last administered on 09:12; Admin Dose 300 MG; Start 12/07/16 at 09:00 Collagenase (Santyl) 1 applic DAILY TOP Last administered on 12/10/16 09:21; Admin Dose 1 APPLIC; Start 12/07/16 at 11:30 Collagenase 1 applic 1 applic PRN PRN TOP WOUND CARE; Start 12/07/16 at 11:00 Linezolid 300 ml @ 300 mls/hr Q12 IVPB Last administered on 12/11/16 09:13; Admin Dose 300 MLS/HR; Start 12/07/16 at 13:30 Imipenem/ Cilastatin Sodium (Primaxin 500 Mg/ 100 ml (Pmx)) 100 ml @ 100 mls/ hr Q12 IVPB Last administered on 12/11/16 09:13; Admin Dose 100 MLS/HR; Start 12/07/16 at 14:00 Acetaminophen (Tylenol Liquid) 500 mg Q4H PRN GTB PAIN AND OR ELEVATED TEMP Last administered on 12/08/16 20:08; Admin Dose 500 MG; Start 12/07/16 at 18:00 Acetaminophen 650 mg 650 mg Q6H PRN GTB PAIN AND OR ELEVATED TEMP Last administered on 12/09/16 16:33; Admin Dose 650 MG; Start 12/08/16 at 11:00 Dextrose (D5W) 1,000 ml @ 75 mls/hr [id number] IV Last administered on 12/11/16 14:50; Admin Dose 75 MLS/HR; Start 12/10/16 at 08:30 Insulin Aspart (Novolog Insulin Pen) NOVOLOG *MILD* ALGORITHM Q4 SC ; Start at 09:00 Desmopressin Acetate (Ddavp) 2 mcg BID SC ; Start 12/11/16 at 14:30 ERIC LIN NP Dec 11, 2016 17:17
== END 2016-12-11 20:01 | DRG 870 ==
LOC: E/R 13:59 → TEL 17:18 → ICU 12-07 22:18 → TEL 12-10 20:55
PROVIDERS: ADMIT Family Medicine; ATTEND Family Medicine
PROC: 5A1955Z Respiratory Ventilation, Greater than 96 Consecutive Hours (ICD-10-PCS; principal; 2016-12-06)
PROC: 30233N1 Transfusion of Nonautologous Red Blood Cells into Peripheral Vein, Percutaneous Approach (ICD-10-PCS; 2016-12-06)
PROC: 06HN33Z Insertion of Infusion Device into Left Femoral Vein, Percutaneous Approach (ICD-10-PCS; 2016-12-06)
PROC: 0DJ08ZZ Inspection of Upper Intestinal Tract, Via Natural or Artificial Opening Endoscopic (ICD-10-PCS; 2016-12-10)
DX: A41.9 Sepsis, unspecified organism (principal); J96.21 Acute and chronic respiratory failure with hypoxia; N17.0 Acute kidney failure with tubular necrosis; R65.21 Severe sepsis with septic shock; J18.9 Pneumonia, unspecified organism; G93.40 Encephalopathy, unspecified; Z99.11 Dependence on respirator [ventilator] status; L89.894 Pressure ulcer of other site, stage 4; E87.0 Hyperosmolality and hypernatremia; N17.9 Acute kidney failure, unspecified; N39.0 Urinary tract infection, site not specified; I12.9 Hypertensive chronic kidney disease with stage 1 through stage 4 chronic kidney disease, or unspecified chronic kidney disease; N18.9 Chronic kidney disease, unspecified; E87.5 Hyperkalemia; Z93.1 Gastrostomy status; Z74.01 Bed confinement status; Z93.0 Tracheostomy status; E86.0 Dehydration; D63.1 Anemia in chronic kidney disease; I49.9 Cardiac arrhythmia, unspecified; L89.150 Pressure ulcer of sacral region, unstageable; L89.210 Pressure ulcer of right hip, unstageable; L89.620 Pressure ulcer of left heel, unstageable; L89.610 Pressure ulcer of right heel, unstageable; K20.9 Esophagitis, unspecified; K29.70 Gastritis, unspecified, without bleeding; K29.80 Duodenitis without bleeding
CPT/HCPCS: 36415; 36430; 36600; 71010; 76775; 80048; 80053; 80061; 81001; 81003; 82043; 82270; 82652; 82728; 82803; 82962; 83036; 83540; 83605; 83690; 83735; 83930; 83935; 84100; 84155; 84300; 84439; 84443; 84484; 85025; 85610; 86850; 86900; 86901; 86920; 87040; 87070; 87086; 89220; 93005; 94002; 94003; 94640; 94799; 96365; 96366; 96368; 96375; C1751; C9113; J0610; J0692; J0743; J1815; J3010; J3370; J3480; J7030; J7040; J7060; J7070; P9016

== ENCOUNTER 2017-01-25 21:38 | Inpatient (IN) | payer OTHER ==
[~2017-01-25] VITALS: Ht 177.8 cm; Wt 78.0 kg
[~2017-01-25 21:38] MED LIST changes: -ACET325T33 GTB; +ACID1CAP GTB; +Acetaminophen Liquid GTB; +SAN30GM TOP
[2017-01-25] MEDS ORDERED: PANTOPRAZOLE IV 80 MG in SOD CHLORIDE 0.9% 100 ML IVPB STA (21:43)
[2017-01-25] MEDS ORDERED: FUROSEMIDE 40 MG INJ IV STA (21:43)
[2017-01-25] MEDS ORDERED: INSULIN REGULAR, HUMAN 100 UNIT/1 ML 3ML VIAL IV STA (21:43)
[2017-01-25] MEDS ORDERED: SODIUM CHLORIDE 0.9% 1L BAG IV* STA (21:43)
[2017-01-25] MEDS ORDERED: SODIUM BICARBONATE (IV ADD) 100 MEQ in DEXTROSE 5% 900 ML IV STA (21:43)
[2017-01-25] MEDS ORDERED: ALBUTEROL 0.083% (NEB) 2.5 MG/3 ML AMP HHN STA (21:43)
[2017-01-25] MEDS ORDERED: PANTOPRAZOLE IV 80 MG in SOD CHLORIDE 0.9% 100 ML IV STA (21:43)
[2017-01-25 21:47] VITALS: Ht 177.8 cm; Wt 78.0 kg
[2017-01-25 22:24] LABS: ADD SCAN DIFF NO
[2017-01-25 22:31] LABS: ABNORMAL IP MESSAGE 1; MEAN CORPUSCULAR HEMOGLOBIN 29.9 pg (29.0-33.0); MEAN CORPUSCULAR HGB CONC 27.2 g/dl (32.0-37.0); RED CELL DISTRIBUTION WIDTH 18.4 % (11.5-14.5)
[2017-01-25 22:33] LABS: ADD UMIC YES; UR BILIRUBIN (Dip) NEGATIVE (NEGATIVE); UR BLOOD (Dip) 3+ (NEGATIVE); UR CLARITY CLOUDY (CLEAR); UR COLOR YELLOW (YELLOW); UR GLUCOSE (Dip) NEGATIVE (NEGATIVE); UR KETONES (Dip) NEGATIVE (NEGATIVE); UR LEUKOCYTE ESTERASE (Dip) 3+ (NEGATIVE); UR NITRITE (Dip) NEGATIVE (NEGATIVE); UR TOTAL PROTEIN (Dip) 2+ (NEGATIVE); UR UROBILINOGEN (Dip) 0.2 E.U./dL (0.1-1.0)
[2017-01-25 22:34] LABS: HEMATOCRIT 17.3 % (42.0-52.0); MEAN CORPUSCULAR VOLUME 110.2 fl (82.0-101.0); MEAN PLATELET VOLUME 13.5 fl (7.4-10.4); PLATELET COUNT 146 10^3/UL (140-415); RED BLOOD COUNT 1.57 10^6/ul (4.70-6.10); WHITE BLOOD COUNT 4.4 10^3/ul (4.8-10.8)
[2017-01-25 22:44] LABS: INR 1.1; PROTIME 14.2 Sec (12.2-14.2); PT RATIO 1.1
[2017-01-25 22:48] LABS: ALANINE AMINOTRANSFERASE 17 IU/L (13-69); ALBUMIN 3.2 g/dl (3.3-4.9); ALBUMIN/GLOBULIN RATIO 0.82; ALKALINE PHOSPHATASE 120 IU/L (42-121); ANION GAP 21 (8-16); ASPARTATE AMINO TRANSFERASE 10 IU/L (15-46); CALCIUM 10.3 mg/dl (8.4-10.2); CARBON DIOXIDE 24 mmol/L (21-31); CHLORIDE 117 mmol/L (97-110); CREATININE 4.39 mg/dl (0.61-1.24); GLUCOSE 241 mg/dl (70-220); SODIUM 155 mmol/L (135-144); TOTAL PROTEIN 7.1 g/dl (6.1-8.1)
[2017-01-25 22:51] LABS: POTASSIUM 7.2 mmol/L (3.5-5.1)
--- NOTE | 2017-01-25 22:54 | ERA ---
ER Documentation Chief Complaint Date/Time DATE: 01/25/17 TIME: 22:49 Chief Complaint SENT BY SNF FOR ABNORMAL LABS: ELEVATED K+, BUN, AND CREATININE HPI Patient is a 71-year-old male sent by [facility] for anemia, renal failure and hyperkalemia. The patient is chronically vent dependent and on a G-tube. It is unclear what his baseline mental status is. Patient had labs performed today that showed BUN of 333, creatinine 4.73, sodium 153, potassium 7.0. There is no report of fever. Hemoglobin at the [facility] today was 5.5. Patient has had similar admissions in the setting of sepsis and GI bleed. History is limited due to the patient being nonverbal and not following commands. The patient has a chronic indwelling Lopez catheter. ROS All systems reviewed and are negative except as per history of present illness. Medications Home Meds Active Scripts Collagenase* (Santyl*) 30 Gm Oint..gm., 1 APPLIC TOP DAILY, #1 Prov:IAM GÓMEZ MD 12/11/16 Insulin Glargine* (Lantus*) 100 Unit/Ml Soln, 6 UNIT SC DAILY@20 for 1 Day Prov:IAM GÓMEZ MD 12/11/16 [Acetaminophen Liquid] 160 MG/5 ML SOLN No Conflict Check, 500 MG GTB Q4H Y for PAIN AND OR ELEVATED TEMP Prov:IAM GÓMEZ MD 12/11/16 Reported Medications Calcium Carbonate-Vitamin D3 (Calcium 500 + D Tablet) 1 Each Tablet, 1 TAB GTB DAILY, TAB 12/06/16 Cholecalciferol* (Vitamin D3*) 1,000 Unit Tablet, 1000 UNIT GTB DAILY, TAB 12/06/16 Dextran/Hypromellose/Glycerin (Artificial Tears Drops) 15 Ml Drops, 2 DROP BOTH EYES BID, EA 12/06/16 Acidophilus/Pectin, [place] (ACIDOPHILUS PROBIOTIC CAPSULE) 1 Each Capsule, 1 EACH GTB BID, CAP 12/06/16 Multivitamins* (Multi-Delyn* Liq) 473 Ml Liquid, 5 ML GTB DAILY, ML 10/29/16 Magnesium Hydroxide* (Milk Of Magnesia*) 400 Mg/5 Ml Oral.susp, 30 ML GTB Q24H Y for PRN, ML 10/29/16 Sod Phosphate/Sod Biphosphate* (Fleet* Enema Pediatric) 66.6 Ml Soln, 66.[address] Q2D Y for CONSTIPATION, ENEMA 10/29/16 Bisacodyl* (Bisacodyl*) 10 Mg Supp, [address] DAILY Y for PRN, SUPP 10/29/16 Docusate Sodium* (Colace*) 100 Mg Capsule, 100 MG GTB QHS, #30 CAP 10/29/16 Lansoprazole* (Lansoprazole*) 30 Mg Capsule.dr, 30 MG GTB BID, CAP 09/25/16 Ferrous Sulfate* (Ferrous Sulfate*) 220 Mg/5 Ml Solution, 220 MG GTB DAILY, ML 09/25/16 Cran/Vitc/Mannose/Inulin/Brom (Uti-Stat Liquid) 3,875 Mg/30 Ml Liquid, 30 ML GTB BID 09/25/16 Zinc Sulfate* (Zinc Sulfate*) 220 Mg Tablet, 220 MG GTB DAILY, TAB 08/23/16 Ascorbic Acid* (Vitamin C* Liq) 500 Mg/5 Ml Syrup, 500 MG GTB DAILY, ML 08/23/16 Tramadol Hcl* (Ultram*) 50 Mg Tablet, 50 MG GTB BID, TAB 08/23/16 Chlorhexidine Gluconate (Paroex) 473 Ml Mouthwash, 473 ML MM Q12, BOTTLE 08/23/16 Dextran/Hypromellose/Glycerin (Artificial Tears Drops) 15 Ml Drops, 2 DROP BOTH EYES BID, EA 08/23/16 Amiodarone Hcl* (Amiodarone Hcl*) 200 Mg Tablet, 200 MG GTB DAILY, #30 TAB HOLD IF AP BELOW 60 08/23/16 Albuterol Sulfate* (Albuterol Sulfate* Neb) 0.083%-3 Ml Neb, 2.5 MG NEB Q3H Y for WHEEZING AND SOB, #30 VIAL Q6H FOR SOB/WHEEZING WITH ATROVENT 08/23/16 Allergies Allergies: Coded Allergies: No Known Allergy (Unverified , 12/06/16) PMhx/Soc Past medical history: Chronic kidney disease, atrial fibrillation, GERD, heart failure, chronic respiratory failure, subdural hemorrhage, epilepsy, diabetes, anemia, stage IV decubitus ulcer, unspecified encephalopathy Past surgical history: tracheostomy, gastrostomy tube Social history: [facility] a [facility], further history unobtainable CODE STATUS: Full code History of Surgery: Yes (trach, gtube) Hx Neurological Disorder: No Hx Respiratory Disorders: Yes (respiratory failure, trach to vent ) Hx Cardiac Disorders: Yes (HTN, afib) Hx Psychiatric Problems: No Hx Miscellaneous Medical Probl: Yes (Right kidney mass) Hx Alcohol Use: No Hx Substance Use: No Hx Tobacco Use: No Smoking Status: Unknown if ever smoked FmHx Unobtainable. Physical Exam Vitals Vital Signs Date Time Temp Pulse Resp B/P Pulse Ox O2 Delivery O2 Flow Rate FiO2 01/25/17 23:30 80 20 100 50 01/25/17 22:45 80 18 94/55 100 Mechanical Ventilator 01/25/17 21:47 99.5 79 18 87/60 100 01/25/17 21:40 71 29 100 50 Physical Exam Const: Chronically ill-appearing, not responsive to stimuli Head: Atraumatic Eyes: Pale conjunctiva, no icterus ENT: Normal External Ears, Nose and Mouth. Moist mucous membranes Neck: Full range of motion..~ No meningismus. No JVD Resp: Clear to auscultation bilaterally Cardio: Regular rate and rhythm, no murmurs Abd: Soft, non tender, non distended. Midline hernia, soft and easily reducible. Rectal: Brown stool, no gross blood, sent to lab for guaiac Skin: No petechiae or rashes Back: No midline or flank tenderness. Stage IV decubitus ulcer over sacrum Ext: No cyanosis, trace edema of ankles Neur: Awake, not following commands, nonverbal, no spontaneous movement of extremities Psych: Cannot assess further. Result Diagram: 01/25/17221401/25/172214 Results 24 hrs Laboratory Tests Test 01/25/17 22:10 01/25/17 22:15 Urine Color YELLOW Urine Clarity CLOUDY Urine pH 8.5 Urine Specific [place] 1.010 Urine Ketones NEGATIVE Urine Nitrite NEGATIVE Urine Bilirubin NEGATIVE Urine Urobilinogen 0.2 E.U./dL Urine Leukocyte Esterase 3+ Urine Microscopic RBC >50/HPF Urine Microscopic WBC >200/HPF Urine Triple Phosphate Crystals MODERATE Urine Bacteria MANY Urine Hemoglobin 3+ Urine Glucose NEGATIVE% Urine Total Protein 2+ White Blood Count 4.410^3/ul Red Blood Count 1.5710^6/ul Hemoglobin 4.7g/dl Hematocrit 17.3% Mean Corpuscular Volume 110.2fl Mean Corpuscular Hemoglobin 29.9pg Mean Corpuscular Hemoglobin Concent 27.2g/dl Red Cell Distribution Width 18.4% Platelet Count 99666^3/UL Mean Platelet Volume 13.5fl Neutrophils % % Eosinophils % % Neutrophils # 10^3/ul Eosinophils # 10^3/ul Prothrombin Time 14.2Sec Prothrombin Time Ratio 1.1 INR International Normalized Ratio 1.10 Activated Partial Thromboplast Time Pending Sodium Level 155mmol/L Potassium Level 7.2mmol/L Chloride Level 117mmol/L Carbon Dioxide Level 24mmol/L Anion Gap 21 Blood Urea Nitrogen > 240mg/dl Creatinine 4.39mg/dl Glucose Level 241mg/dl Lactic Acid Level 2.5mmol/L Calcium Level 10.3mg/dl Total Bilirubin 0.0mg/dl Direct Bilirubin 0.00mg/dl Indirect Bilirubin 0.0mg/dl Aspartate Amino Transf (AST/SGOT) 10IU/L Alanine Aminotransferase (ALT/SGPT) 17IU/L Alkaline Phosphatase 120IU/L Troponin I 0.025ng/ml Total Protein 7.1g/dl Albumin 3.2g/dl Globulin 3.90g/dl Albumin/Globulin Ratio 0.82 Current Medications Medications (Trade) Dose Ordered Sig/Cici Route PRN Reason Start Time Stop Time Status Last Admin Dose Admin Sodium Chloride (NS) 2,480 ml BOLUS OVER 2 HOURS STAT IV* 01/25/17 21:43 01/25/17 21:48 DC 01/25/17 22:26 Furosemide 20 mg 20 mg ONCE STAT IV 01/25/17 21:43 01/25/17 21:48 DC 01/25/17 22:27 Sodium Bicarbonate/ Dextrose (Na Bicarb/D5W) 1,000 ml @ 500 mls/hr Q2H STAT IV 01/25/17 21:43 01/25/17 23:42 DC 01/25/17 22:34 Insulin Human Regular 5 unit 5 unit ONCE STAT IV 01/25/17 21:43 01/25/17 21:48 DC 01/25/17 22:27 Pantoprazole 80 mg/Sodium Chloride 100 ml @ 400 mls/hr ONCE STAT IVPB 01/25/17 21:43 01/25/17 21:57 DC 01/25/17 22:34 Pantoprazole/ Sodium Chloride (Protonix Iv/NS) 100 ml @ 10 mls/hr ONCE STAT IV 01/25/17 21:43 01/26/17 07:42 01/25/17 22:35 Albuterol 10 mg 10 mg ONCE STAT HHN 01/25/17 21:43 01/25/17 21:48 DC 01/25/17 22:38 Cefepime HCl (Maxipime 1gm/50 ml (Pmx)) 50 ml @ 100 mls/hr ONCE ONCE IVPB 01/25/17 23:00 01/25/17 23:29 DC 01/25/17 23:41 Vancomycin HCl VANCOMYCIN PER PHARMACY PER PROTOCOL XX 01/25/17 23:00 Levofloxacin/ Dextrose 150 ml @ 100 mls/hr ONCE ONCE IVPB 01/25/17 23:30 01/26/17 00:59 Dextrose/Sodium Chloride (D5-1/2ns) 1,000 ml @ 100 mls/hr Q10H IV 01/25/17 23:56 UNV Ondansetron HCl (Zofran Inj) 4 mg Q6H PRN IV NAUSEA AND/OR VOMITING 01/26/17 00:00 UNV Albuterol (Ventolin Hfa) 4 puff Q2H RESP THERAPY PRN INH SHORTNESS OF BREATH 01/26/17 00:00 UNV Ipratropium [place] (Atrovent Hfa) 4 puff Q2H RESP THERAPY PRN INH SHORTNESS OF BREATH 01/26/17 00:00 UNV Acetaminophen (Tylenol Liquid) 650 mg Q6H PRN PO PAIN LEVEL 1-3 OR FEVER 01/26/17 00:00 UNV Morphine Sulfate (morphine) 2 mg Q4H PRN IV PAIN LEVEL 7-10 01/26/17 00:00 UNV Lorazepam 1 mg 1 mg Q2H PRN IV ANXIETY 01/26/17 00:00 UNV Norepinephrine 250 ml @ 1.875 mls/ hr TITRATE IV 01/26/17 00:00 UNV Linezolid (Zyvox 600mg/D5W (Pmx)) 300 ml @ 300 mls/hr Q12 IVPB 01/26/17 00:00 UNV Procedures/MDM EKG read by me: Time 2158, rate 80 Rhythm: Normal sinus [place]: Normal Intervals: First-degree AV block ST-T waves: Nonspecific changes Ectopy: No Q-waves: Anterior Q waves Impression: First-degree AV block, no ischemia MDM: Patient is a 71-year-old male [facility] for acute anemia, acute renal failure and hyperkalemia. He has had previous admissions for GI bleed and sepsis. Patient was found to have a potassium of 7.2. There were no associated changes on EKG. He was given Lasix, albuterol, dextrose and insulin. The patient was found to have both pneumonia and a urinary tract infection. Cultures were sent. Weight-based IV fluids and brought spectrum antibiotics were administered. The patient was found to have a slightly elevated lactic acid. With regard to the patient's suspected GI bleed, a stool guaiac was sent to the lab. He was transfused 2 units of packed red blood cells , and was started on a Protonix drip with bolus. He will likely need further transfusion as an inpatient. A head CT was performed due to the patient's mental status, which appears to be chronic, and did not reveal an acute process. I consulted nephrology, Dr. Raza. The patient will be admitted to the ICU by Dr. Cohen. Critical Care Time: 40 minutes Treatments/Evaluations: Close monitoring and treatment of unstable vital signs, cardiorespiratory, and neurologic status, while maintaining tight balance of fluid, respiratory, and cardiac interventions. This time includes discussing the case with the patient and the patient's family. This time does not include all procedures stated elsewhere in this record. This time also includes reviewing old records, labs and radiological studies. This time includes examining and re-examining the patient. Additionally, this time also includes arranging care with admitting and consulting physicians. Departure Diagnosis: Primary Impression: Sepsis Qualified Code: A41.9 - Sepsis, due to unspecified organism Additional Impressions: GI bleed Qualified Code: K92.2 - Gastrointestinal hemorrhage, unspecified gastrointestinal hemorrhage type Hyperkalemia Acute renal failure Qualified Code: N17.9 - Acute renal failure, unspecified acute renal failure type Dehydration Decubitus ulcer Qualified Code: L89.154 - Decubitus ulcer of sacral region, stage 4 Pneumonia Qualified Code: J18.9 - Pneumonia of both lower lobes due to infectious organism Urinary tract infection Qualified Code: T83.511A - Urinary tract infection associated with indwelling urethral catheter, initial encounter Hypernatremia Condition: Serious WYLER,PATRIC MD Jan 25, 2017 22:54
[2017-01-25 22:58] LABS: BLOOD UREA NITROGEN > 240 mg/dl (7-20); TROPONIN-I 0.025 ng/ml (0.00-0.12)
[2017-01-25] MEDS ORDERED: VANCOMYCIN IV PER PHARMACY XX SCH (23:00)
[2017-01-25] MEDS ORDERED: CEFEPIME 1GM/50 ML (PMX) 50 ML IVPB ONE (23:00)
[2017-01-25 23:03] LABS: UR BACTERIA MANY; UR TRIPLE PHOSPHATE CRYSTAL MODERATE; URINE RBCS >50 /HPF (0)
--- NOTE | 2017-01-25 23:15 | RADRPT ---
PROCEDURE: XR Chest. CLINICAL INDICATION: Chest pain. TECHNIQUE: Portable AP views of the chest were obtained. COMPARISON: 10/29/2016 FINDINGS: The cardiomediastinal silhouette is within normal limits. Tracheostomy is again noted in satisfacto ry position. Interval development of right greater than left lower lobe consolidation. Right large r left pleural effusions are present, the pulmonary vasculature is within limits of normal. There i s no evidence of pneumothorax. Demineralization is identified without evidence of acute osseous abn ormality. RPTAT:[facility] IMPRESSION: 1. Interval development of right greater than left lower lobe consolidation in this patient with tra cheostomy, bibasilar pneumonia with parapneumonic effusions difficult to exclude in the proper clini jyoti setting and follow-up evaluation is recommended. 2. No evidence of pulmonary vascular congestion to suggest congestive heart failure. Physician Khalida Date Time Electronically viewed and signed by Physician Khalida on 01/25/2017 23:15 /
[2017-01-25] MEDS ORDERED: LEVOFLOXACIN 750MG/D5W (PMX) 150 ML IVPB ONE (23:30)
--- NOTE | 2017-01-25 23:41 | RADRPT ---
PROCEDURE: CT Brain without contrast. CLINICAL INDICATION: Weakness and nonacute stroke TECHNIQUE: A CT of the brain was performed on a GE Whydpeed 64-slice CT scanner utilizing axial imaging from the skull base through the vertex without IV contrast. Multiplanar reformatted images were made. Images were reviewed on a PACS workstation. The CTDIvol is 90.02 mGy and the DLP is 900 .28 mGycm. One of the following 3 dose reduction techniques were used: Automated exposure control; adjustment of the mA and/or kV according to patient size; or use of iterative reconstruction technique. COMPARISON: 10/29/[address] FINDINGS: Motion artifact degrades the optimal quality of the study. There is no intracranial hemorrhage, mass effect, or midline shift. No extra-axial fluid collection is seen. The ventricles and sulci are age appropriate. Mild to moderate diffuse volume loss is pre sent. Wedge-shaped decreased attenuation is present in the right parietal and occipital lobes and t he left anterior temporal lobe compatible with chronic infarcts or contusions. Decreased attenuatio n is present in the bilateral subcortical white matter, bilateral centrum semiovale and bilateral pe riventricular white matter compatible with mild to moderate chronic microvascular ischemic disease. Ex vacuo dilatation is present of the right occipital and temporal horns of the lateral ventricles. Vascular calcifications are present of the bilateral intracranial internal carotid arteries and th e vertebral basilar arteries. The visualized scalp and calvarium are normal. The bilateral orbits are normal. The bilateral para nasal sinuses demonstrate a right maxillary sinus air fluid level. In addition and inspissated secr etions are noted in the left septated side of the sphenoid sinus coincident with chronic mucoperiost eal disease. The bilateral mastoid air cells and middle ear cavities are clear. IMPRESSION: 1. No evidence of acute intracranial hemorrhage, infarcts, or acute intracranial pathology. 2. 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 3. Mild to moderate chronic microvascular ischemic disease and diffuse volume loss. 4. Mild atherosclerotic vascular disease 5. Acute right maxillary sinusitis and left septated sphenoid sinusitis superimposed on chronic muc operiosteal disease RPTAT: [facility] [place] .Mel Bach MD, Date Time Electronically viewed and signed by .Mel Bach MD, MD on 01/25/2017 23:40 .C/
[2017-01-25] MEDS ORDERED: DEXTROSE 5%-0.45% NACL 1,000 ML IV SCH (23:56)
[2017-01-26] VITALS (36 sets, daily range): BP systolic 83–108; BP diastolic 52–75; PULSE 61–79; RESP 16–28; TEMP 97.4
[2017-01-26] MEDS ORDERED: morphine 2 MG INJ IV PRN
[2017-01-26] MEDS ORDERED: NORepinephrine 8MG/250 ML (PMX 250 ML IV SCH
[2017-01-26] MEDS ORDERED: ALBUTEROL 18 GM INHALER INH PRN
[2017-01-26] MEDS ORDERED: IPRATROPIUM (HFA) 12.9 GM INHALER INH PRN
[2017-01-26] MEDS ORDERED: LORAZEPAM 2 MG INJ IV PRN
[2017-01-26] MEDS ORDERED: ONDANSETRON 4 MG INJ IV PRN
[2017-01-26] MEDS ORDERED: ACETAMINOPHEN 650MG/20.3ML CUP PO PRN
[2017-01-26 00:43] LABS: EOSINOPHILS # 0.3 10^3/ul (0.0-0.5); LYMPHOCYTES # 0.2 10^3/ul (0.8-2.9); MONOCYTE # 0.1 10^3/ul (0.3-0.9); NEUTROPHIL # 3.7 10^3/ul (1.6-7.5)
[2017-01-26 00:46] LABS: PLATELET ESTIMATE PLT APPEAR ADEQUATE
[2017-01-26 02:02] LABS: PARTIAL THROMBOPLASTIN TIME 21.9 Sec (25.0-35.0)
[2017-01-26] MEDS: DEXTROSE 5% 1,000 ML IV SCH ×2 (05:47→16:00)
[2017-01-26] MEDS: PANTOPRAZOLE IV 80 MG in SOD CHLORIDE 0.9% 100 ML IV SCH ×3 (06:00→19:08)
--- NOTE | 2017-01-26 07:15 | HP ---
DATE OF ADMISSION: 01/26/2017 TIME SEEN: 2330. CHIEF COMPLAINT: The patient was sent from [facility] for abnormal lab. HISTORY OF PRESENT ILLNESS: The patient is a 71-year-old male with multiple medical conditions who is chronically encephalopathic with chronic ventilator/trache dependent respiratory failure, dysphag ia status post G-tube, chronic kidney disease, systolic function with EF of 40% per 2D echo from 2016, anemia, GI bleed, history of gastric ulcer, type 2 diabetes, cardiac arrhythmia and stage IV p ressure ulcers, who was sent from [facility] for abnormal labs. The patient also is n ot able to provide history, and as such, information is gathered from chart review and from talking to the ER physician. The abnormal labs that he was sent for mainly is for a creatinine of 4.73, BUN 333, sodium of 153 and potassium of 7. [facility] hemoglobin [facility]5 [facility]. When the patient presented to the ER, blood pressure 87/60, heart rate 79, respiratory rate 18, temp erature 99.5, oxygen saturation 100% on 50% FIO2 on mechanical vent. Laboratory value shows a WBC of 4.4, hemoglobin 4.7, platelet count 146. Sodium 155, potassium 7.2, chloride 117, bicarbonate 24, BUN greater than 240, creatinine of 4.39 and glucose 241. Initial la ctic acid was 3. 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 The patient was admitted here about 6 weeks ago after he was [facility] for abnormal labs including acute on chronic kidney disease, hyperkalemia, and hypernatremia. During that hospitalization, he was septic with urine culture grow ing multidrug resistant pseudomonas. Blood culture coagulase-negative status and respiratory cultur e also was multidrug resistant pseudomonas. During previous hospitalization, he also grew MRSA in h is blood. The patient also has a history of C diff diarrhea. So patient was treated for sepsis sec ondary to urinary tract infection, stage IV decubitus ulcer and pneumonia. The patient was also ane keisha at the time with hemoglobin of 6.8 for which he underwent EGD with a finding of mild esophagitis , gastritis and duodenitis. Also, he has a previous ulcer ulceration in the proximal stomach was a complete healing. He does have 2 clips in his stomach for a bleeding ulcer. So when the patient presented here to the ER, he had several abnormal labs and he was hypotensive. His chest x-ray shows interval development of right greater than left lower lobe consolidation, basi lar pneumonia with possible parapneumonic effusion. The patient was given Lasix, insulin, Protonix, albuterol, IV fluid, cefepime and Levaquin as well as bicarb while he was in the ER. Currently, he is admitted to the ICU. REVIEW OF SYSTEMS: Unable to full assess. PAST MEDICAL HISTORY: As per HPI. PAST SURGICAL HISTORY: As per HPI. SOCIAL HISTORY: Unknown. ALLERGIES: NO KNOWN DRUG ALLERGIES. HOME MEDICATIONS: 1. Albuterol. 2. Ferrous sulfate. 3. Amiodarone. 4. Tramadol. 5. Calcium. 6. Vitamin D. 7. Zinc. 8. Artificial Tears. 9. Dulcolax. 10. Colace. 11. Lansoprazole. 12. Milk of Magnesia. 13. Vitamin C. 14. Tylenol. PHYSICAL EXAMINATION: VITAL SIGNS: Blood pressure 94/55, heart rate 80, respiratory rate 18, temperature earlier was 99.5 , oxygen saturation 100% on 50% FIO2 on a vent. GENERAL: The patient with trache on a vent who is unresponsive. He does not look like he is in any distress. HEENT: Normocephalic, atraumatic. Pupils are reactive to light. CARDIOVASCULAR: Regular rate and rhythm. LUNGS: With diminished breath sounds at the bases anteriorly. ABDOMEN: Soft with a G-tube in place. There is an easily reducible midline hernia. EXTREMITIES: No edema. BACK: He has a stage IV sacral decubitus ulcer. NEUROLOGIC: Eyes are open, but no purposeful movement. He is unresponsive to verbal or noxious sti muli. LABORATORY DATA: Pertinent positives as mentioned in the HPI. IMPRESSION: 1. Sepsis secondary to healthcare-associated pneumonia and urinary tract infection as well as stage IV sacral decubitus ulcer. 2. Acute on chronic kidney disease. 3. Hyperkalemia. 4. Hypernatremia. 5. Severe anemia, most likely a combination of anemia of chronic disease and possible GI bleed give n history. 6. Chronic vent/trache dependent respiratory failure. 7. Chronic encephalopathy 8. Dysphagia, status post G-tube. 9. History of atrial fibrillation. 10. History of esophagitis, gastritis and duodenitis. 11. History of proximal stomach status post placement of 2 clips. PLAN: Continue ICU monitoring. He will be placed on antibiotic, but will need ID to help manage th is given his history of multidrug resistant organisms. We will follow up on blood culture and urine culture as well as culture from his sacral decubitus ulcer. He will be placed on D5W given the hyp ernatremia. Will continue blood transfusion and monitor H and H closely. Will get GI on board. Cu rrently, the patient's systolic blood pressure has been greater than 90. Will give IV fluids and wi ll have a pressor. We will start the pressor as needed. Pulmonology consultation will be placed. I have asked the ER physician to place a consult with Dr. Kelly, the special forces specialist, so will await e valuation. Patient's hyperkalemia was treated, will repeat labs and correct electrolytes as needed. Further workup and management per clinical course. Dictated By: NIMCO GIRARD/LESLY Conf#: [id number] DID#: [id number]
[2017-01-26 07:56] LABS: ADD SCAN DIFF NO
[2017-01-26 08:02] LABS: ABNORMAL IP MESSAGE 1; HEMATOCRIT 19.6 % (42.0-52.0); MEAN CORPUSCULAR HEMOGLOBIN 31.3 pg (29.0-33.0); MEAN CORPUSCULAR HGB CONC 30.6 g/dl (32.0-37.0); MEAN CORPUSCULAR VOLUME 102.1 fl (82.0-101.0); MEAN PLATELET VOLUME 13.2 fl (7.4-10.4); PLATELET COUNT 108 10^3/UL (140-415); RED BLOOD COUNT 1.92 10^6/ul (4.70-6.10); RED CELL DISTRIBUTION WIDTH 17.2 % (11.5-14.5); WHITE BLOOD COUNT 3.3 10^3/ul (4.8-10.8)
[2017-01-26 08:28] LABS: ALANINE AMINOTRANSFERASE 22 IU/L (13-69); ALBUMIN 2.8 g/dl (3.3-4.9); ALBUMIN/GLOBULIN RATIO 0.84; ALKALINE PHOSPHATASE 83 IU/L (42-121); ANION GAP 18 (8-16); ASPARTATE AMINO TRANSFERASE 11 IU/L (15-46); CALCIUM 8.6 mg/dl (8.4-10.2); CARBON DIOXIDE 23 mmol/L (21-31); CHLORIDE 120 mmol/L (97-110); CREATININE 3.48 mg/dl (0.61-1.24); GLUCOSE 240 mg/dl (70-220); SODIUM 156 mmol/L (135-144); TOTAL PROTEIN 6.1 g/dl (6.1-8.1)
[2017-01-26] MEDS: MEROPENEM 1 GM/100 ML (PMX) 100 ML IVPB SCH ×2 (08:28→20:46)
[2017-01-26] MEDS: LINEZOLID 600 MG/D5W (PMX) 300 ML IVPB SCH ×3 (08:28→21:16)
[2017-01-26 08:37] LABS: BLOOD UREA NITROGEN > 240 mg/dl (7-20)
[2017-01-26] MEDS ORDERED: EPOETIN 10000 UNITS/1 ML INJ (ESRD) SC ONE (09:00)
[2017-01-26 09:40] LABS: EOSINOPHILS # 0.1 10^3/ul (0.0-0.5); LYMPHOCYTES # 0.2 10^3/ul (0.8-2.9); MONOCYTE # 0.1 10^3/ul (0.3-0.9); NEUTROPHIL # 2.7 10^3/ul (1.6-7.5)
--- NOTE | 2017-01-26 10:12 | CONS ---
DATE OF ADMISSION: 01/26/2017 DATE OF CONSULTATION: TYPE OF CONSULTATION: Nephrology. REASON FOR CONSULTATION: Hyperkalemia, acute kidney injury. HISTORY OF PRESENT ILLNESS: This is a 71-year-old male with a past medical history of chronic kidne y disease with previous baseline creatinine around 1.5 mg/dL in 10/2016, history of ventilator depen dent respiratory failure, history of dysphagia, status post tracheostomy, history of chronic encepha lopathy, history of gastric ulcers, anemia, history of diabetes, decubitus wound, history of Clostri dium difficile colitis who presents to [facility] from his skilled nurse facility due to abnormal labs. The patient was previously admitted to [facility] in 7. At that time, patient had acute kidney injury due to severe prerenal volume depletion ATN. Nica ent was medically managed and stabilized and was discharged with a creatinine around 2.45 mg/dL. patient now presents to [facility] with a BUN of greater than 240, creatinine 4. 39. White count of 4.4, hemoglobin 4.7, platelet count 147. In the emergency room, the patient was typed and crossed for PRBCs. He was placed on Protonix drip for suspicion GI bleed. The patient w as also given Kayexalate, dextrose, insulin and admitted to the intensive care unit. The patient wh ile in the intensive care unit has had multiple bowel movements. The patient also received IV fluid s in the emergency room approximately 3 liters. The patient is noted to have gross hematuria from h is Lopez catheter with urinary output approximately 20 to 30 mL per hour. There is no evidence of g ross hemoptysis, hematemesis or hematochezia. PAST MEDICAL HISTORY: As stated above, history of chronic kidney disease stage IV, history of venti lator dependent respiratory failure, history of dysphagia, history of encephalopathy, hyponatremia, arrhythmia, diabetes, decubitus wound, Clostridium difficile. PAST SURGICAL HISTORY: Status post trache and PEG. ALLERGIES: HAVE BEEN REVIEWED. MEDICATIONS: Have been reviewed. FAMILY HISTORY: Noncontributory. SOCIAL HISTORY: Lives at a skilled nurse facility. REVIEW OF SYSTEMS: Unable to do adequate review of systems as the patient is obtunded. Pertinent p ositives obtained by reviewing medical records, speaking to hospital staff, stated in HPI, otherwise negative. PHYSICAL EXAMINATION: VITAL SIGNS: Blood pressure is currently 89/76, respirations 16, pulse 72, temperature 98.6. HEENT: Head is normocephalic. Pupils are reactive to light. NECK: Supple. HEART: Regular rate. LUNGS: Show diminished breath sounds at base. ABDOMEN: Soft, nontender to palpation. Positive PEG. EXTREMITIES: Negative for clubbing, cyanosis. Positive wounds. DERMATOLOGIC: No rashes. MUSCULOSKELETAL: Positive decubitus wound. NEUROLOGIC: The patient is obtunded. LABORATORY DATA: Shows a White count 4.4, hemoglobin 4.7, hematocrit 17.3, platelet count is 147. Sodium 155, potassium 7.2, chloride 117, BUN is 2, creatinine is 240, glucose 439, calcium 10.3. Ur inalysis shows greater than 200 WBCs, greater than 50 RBCs, +2 proteinuria. ASSESSMENT AND PLAN: This is a 71-year-old male who presents with: 1. Nonoliguric acute kidney injury on top of chronic kidney disease stage IV with a previous baseli ne creatinine around 1.5 to 2.5 mg/dL. Etiology of acute kidney injury is likely secondary to prere nal volume depletion with superimposed acute tubular necrosis. The patient's urinalysis shows great er than 200 WBCs and RBCs greater than 50. Patient has noted gross hematuria. Plan at this point i s to check a STAT renal ultrasound to rule out obstruction. We will also repeat urinalysis, calcula te urine lytes. We will continue the patient on aggressive IV hydration of half NS at 150 mL an calrk r. We will follow up a STAT renal panel. If the patient shows no improvement in renal function and is hyperkalemic, emergent hemodialysis will be ordered. If there are signs of renal recovery, will then monitor the patient clinically and defer hemodialysis. Would otherwise continue supportive ca re, renally dose meds, avoid nephrotoxins. Will monitor serial renal panels q.6-8 hours. Will ayaan tor closely. 2. Severe hypernatremia. The patient's free water deficit of approximately 4-1/2 mg/dL. Etiology is likely from insensible loss and osmotic diuresis due to azotemia. Plan at this point is to check a urine osmolarity, serum osmolarity. We will continue the patient on aggressive hypertonic fluids and monitor closely. 3. Hyperkalemia. Etiology is secondary to acute kidney injury. The patient is status post Kayexal ate, calcium gluconate, dextrose and insulin. Plan is to check a repeat STAT renal panel. If the p kristal's hyperkalemia has not improved, immediate hemodialysis will be ordered for cellular clearanc e. Would otherwise continue aggressive IV hydration to increase salt delivery to distal nephrons. Will monitor serial potassium levels closely. 4. Uremia. Etiology is secondary to acute kidney injury. The patient has a markedly azotemia with BUN:creatinine 240, this is in part due to likely active GI bleeding in conjunction with acute kidn ey injury. The patient has received blood products and IV hydration. Plan is to continue to treat underlying acute kidney injury. If the patient's azotemia and renal function does not improve. The patient will require dialysis for solute clearance. 5. Severe anemia, likely due to gastrointestinal bleed. As stated above, patient is on Protonix dr ip and receiving blood transfusion. Continue to monitor H and H levels closely. Consider a GI eval uation. 6. Ventilator dependent respiratory failure. Vent settings reviewed. ABG is reviewed. Continue t o monitor. Follow up with pulmonary. 7. Sepsis secondary to healthcare-associated pneumonia, urinary tract infection and decubitus wound . Continue current antibiotic regimen. 8. Acute on chronic encephalopathy, etiology toxic metabolic uremia. Continue to monitor. 9. History /PEG. Resume tube feeding once the patient is clinically stable. 10. History of atrial fibrillation. 11. History of esophagitis, gastritis. Continue current medical management. Continue PPI. 12. Mineral bone disorder. Monitor calcium and phos levels. 13. Diabetes, continue Accu-Cheks and sliding scale. 14. Decubitus wounds, pressure ulcers. Continue wound care. Thank you, Dr. Cohen, for this interesting consult. It will be a pleasure to follow patient with you throughout the hospital course. Dictated By: JACOB GOMEZ/LESLY Conf#: [id number] DID#: [id number]
[2017-01-26] MEDS: SOD CHLORIDE 0.45% 1,000 ML IV SCH ×2 (11:31→21:20)
[2017-01-26] MEDS: COLLAGENASE 30 GM TUBE TOP SCH (11:31)
[2017-01-26 12:58] LABS: ADD UMIC YES; UR BILIRUBIN (Dip) NEGATIVE (NEGATIVE); UR BLOOD (Dip) 3+ (NEGATIVE); UR CLARITY CLEAR (CLEAR); UR COLOR BROWN (YELLOW); UR KETONES (Dip) NEGATIVE (NEGATIVE); UR LEUKOCYTE ESTERASE (Dip) 2+ (NEGATIVE); UR NITRITE (Dip) NEGATIVE (NEGATIVE); UR TOTAL PROTEIN (Dip) 2+ (NEGATIVE); UR UROBILINOGEN (Dip) 0.2 E.U./dL (0.1-1.0)
[2017-01-26 13:15] LABS: UR BACTERIA MANY; URINE RBCS >200 /HPF (0)
--- NOTE | 2017-01-26 13:26 | PN ---
DATE: 01/26/2017 SUBJECTIVE: The patient seen by renal team, still lethargic. OBJECTIVE VITAL SIGNS: Stable. GENERAL: The patient is lying in bed, unresponsive, in no distress. HEENT: Pupils equal, round, reactive to light. Extraocular muscles intact. NECK: Supple. Trach in place. LUNGS: Diminished breath sounds bilaterally. CARDIOVASCULAR: S1, S2 heard. No rubs or gallops. ABDOMEN: G-tube in place, reducible midline hernia. No rebound or guarding. MUSCULOSKELETAL: No lower extremity edema bilaterally. NEUROLOGIC: No purposeful movements. LABORATORY DATA: WBC 3.3, hemoglobin 6.0, hematocrit 19.6, platelets of 108. Sodium 156, potassium 5.0, chloride 120, CO2 23, BUN of greater than 240, creatinine 3.48, glucose of 240. LFTs are actu ally normal. is 2.1. Urine culture shows preliminary gram-negative rods positive. ASSESSMENT AND PLAN: A 71-year-old male with history of G-tube, trach, CKD, CHF, dysphagia, arrhyth enma, stage IV pressure ulcer, type 2 diabetes, history of GI bleed, who presents with sepsis seconda ry to urinary tract infection and pneumonia, and also severe hyperkalemia, acute on chronic renal in sufficiency and hypernatremia. 1. Sepsis. Again, admit to ICU, continue ICU care, continue aggressive IV fluid hydration, IV anti biotics and Tylenol p.r.n. pain, fevers, antiemetics and pain control medications. Followup labs in the morning. IV fluids. 2. Hyperkalemia, again, follow up renal recommendations, patient did receive Kayexalate, calcium gl uconate, dextrose, insulin earlier. Monitor basic metabolic panel every morning. 3. Severe hypernatremia, again, free water deficit of about 4 to 4.5 liters. Follow up renal recom mendations as far as hypotonic IV fluids, may need to give the patient free water as well. 4. Acute on chronic renal failure, again, severely elevated BUN and creatinine levels. Follow up r enal recommendations. Follow up urine electrolytes, aggressive IV fluid hydration. If there is not any meaningful recovery of renal function including decreased urine output, may need to consider he modialysis. 5. History of gastrointestinal bleed in the past and severe anemia, status post PRBC transfusion. The patient is on Protonix drip. Consider GI consult as well. Follow up CBC levels daily. 6. Ventilator dependent respiratory failure. Again, will get pulmonary consult. Continue collision mechanic al ventilation as well. 7. History of Pseudomonas UTI and get ID consult. Continue broad spectrum antibiotics. 8. History of chronic encephalopathy. Continue to monitor. 9. Gastrointestinal prophylaxis, proton pump inhibitors. 9. Deep venous thrombosis prophylaxis, sequential compression devices. TIME SPENT TODAY: 45 minutes. Dictated By: JASON PERAZA Conf#: [id number] DID#: [id number]
[2017-01-26 15:05] LABS: HEMATOCRIT 23.2 % (42.0-52.0); HEMOGLOBIN 7.3 g/dl (14.0-18.0)
[2017-01-26 15:23] LABS: ANION GAP 20 (8-16); CALCIUM 8.9 mg/dl (8.4-10.2); CARBON DIOXIDE 23 mmol/L (21-31); CHLORIDE 118 mmol/L (97-110); CREATININE 3.42 mg/dl (0.61-1.24); GLUCOSE 187 mg/dl (70-220); POTASSIUM 4.8 mmol/L (3.5-5.1); SODIUM 156 mmol/L (135-144)
[2017-01-26 15:33] LABS: BLOOD UREA NITROGEN > 240 mg/dl (7-20)
[2017-01-26] MEDS: LACTATED RINGER'S 1,000 ML IV SCH ×2 (16:58→20:19)
[2017-01-26] MEDS ORDERED: BARIUM SULF 2% 450 ML BTL (BERRY SMOOTHIE) PO ONE (17:30)
--- NOTE | 2017-01-26 18:00 | CONS ---
DATE OF ADMISSION: 01/26/2017 DATE OF CONSULTATION: 01/26/2017 TYPE OF CONSULTATION: Pulmonary. REASON FOR CONSULTATION: Vent-dependent respiratory failure and septic shock. PRIMARY PHYSICIAN: Dr. Cohen HISTORY OF PRESENT ILLNESS: Briefly, this is a 71-year-old gentleman with multiple medical problems including chronic encephalopathy, vent-dependent respiratory failure, status post tracheostomy, pos sible underlying COPD, underlying CHF with a reduced ejection fraction, chronic kidney disease, diab etes, anemia, history of GI bleed, severe stage IV decubitus ulcers, resident of a [facility] who was admitted last night with severe sepsis, likely urinary in origin with associated sev ere anemia, acute on chronic renal failure and hypernatremia and hyperkalemia. PAST MEDICAL HISTORY: As above. PAST SURGICAL HISTORY: Trach and PEG, otherwise unknown. ALLERGIES: NO KNOWN DRUG ALLERGIES. MEDICATIONS: Please see MAR. SOCIAL HISTORY: Resident of a nursing facility, otherwise no known tobacco, alcohol or illicit drug use. FAMILY HISTORY: Unable to obtain. REVIEW OF SYSTEMS: Unable to obtain. PHYSICAL EXAMINATION: GENERAL: Minimally responsive on trach on mechanical ventilation. VITAL SIGNS: Blood pressure is 88/54 unsupported. Heart rate is 67, oxygen saturation 100% on 40% FIO2 on mechanical ventilation. HEENT: Tracheostomy in place. NECK: Supple, no thyromegaly, no jugular venous distention. CARDIOVASCULAR: Regular rate and rhythm. S1, S2. No murmurs, rubs, or gallops. CHEST: Coarse breath sounds with decreased breath sounds overall heard anteriorly. ABDOMEN: Soft, nontender. There is an incisional ventral hernia. EXTREMITIES: There is no cyanosis, clubbing or edema. Decubiti ulcers not examined, but be viewed o n photos taken by nursing staff. LABORATORY DATA: Sodium is 156, BUN is 240, creatinine is 3.4. WBC is 3.3, hemoglobin is 6.0, plat elets are 108. Urine culture Gram-negative colby, preliminary blood culture is gram-negative colby prel iminarily. Chest x-ray shows emphysematous changes in the upper lung zones with some streaky bibasilar airspace disease versus atelectasis. IMPRESSION: 1. Severe sepsis/septic shock, likely due to a urinary tract etiology with associated gram-negative bacteremia. Cannot rule out a component of concurrent pneumonia, i.e., a healthcare-associated pr ocess at the same time. 2. Acute on chronic renal failure, likely prerenal versus acute tubular necrosis in the setting of the underlying sepsis. 3. Severe anemia, likely due to hematuria, again representing an acute on chronic picture. 4. Hyperkalemia, now resolved. 5. Hypernatremia. 6. Chronic encephalopathy. 7. Vent-dependent respiratory failure. RECOMMENDATIONS: 1. More aggressive IV fluid resuscitation with lactated Ringer's. 2. Continue free water repletion enterally via G-tube. 3. Antibiotic coverage with meropenem for coverage for ESBL given likely urinary etiology which. Wo uld continue meropenem just in case there is a healthcare associated respiratory etiology in order t o cover enteric gram-negative rods, otherwise would transition to ertapenem. 4. Would discontinue Zyvox. 5. Follow up final culture results. 6. Follow serial lactates for lactate clearance. 7. Transition to a Protonix IV from drip. 8. Flushing of the Lopez to be performed to see if hematuria resolves. Otherwise, would benefit fr om a urologic evaluation. Dictated By: CLEM AGUILAR MD NK/NTS Conf#: [id number] DID#: [id number] CC: NICK BALLARD MD;*End*
--- NOTE | 2017-01-26 18:10 | RADRPT ---
PROCEDURE: Retroperitoneal US. CLINICAL INDICATION: Renal insufficiency TECHNIQUE: Multiple sonographic images of the kidneys and retroperitoneum were obtained. The imag es were reviewed on a PACS workstation. COMPARISON: 12/07/2016, 11/01/2016 FINDINGS: The right kidney measures 12.9 cm. The left kidney measures 11.5 cm. There is a large 5.6 x 4.7 cm complex mass in the upper pole of the right kidney. There are simple cysts in the left kidney, measuring up to 3.9 cm. There is increased echogenicity of the kidneys. There is no evidence of hydronephrosis. The urinary bladder is partially decompressed with Lopez catheter. There is layering debris within the urinary bladder.. IMPRESSION: Large complex mass in the upper pole of the right kidney, suspicious for renal cell carcinoma. Furth er evaluation with a CT with contrast or MRI is recommended. Simple cysts in the left kidney. Echogenic kidneys, consistent with medical renal disease. No evidence of hydronephrosis. RPTAT: AA .Meek Hobson MD, MD Date Time Electronically viewed and signed by .Meek Hobson MD, MD on 01/26/2017 18:10 .S/
[2017-01-26 20:16] LABS: HEMOGLOBIN 8.1 g/dl (14.0-18.0)
[2017-01-26] MEDS: HYDROGEN PEROXIDE 118 ML TOP SCH (20:46)
[2017-01-27] VITALS (37 sets, daily range): BP systolic 83–105; BP diastolic 50–66; PULSE 64–74; RESP 17–27
[2017-01-27] MEDS: SOD CHLORIDE 0.45% 1,000 ML IV SCH ×4 (00:25→16:49)
[2017-01-27] MEDS: DEXTROSE 5% 1,000 ML IV SCH ×2 (02:00→12:00)
--- NOTE | 2017-01-27 04:37 | RADRPT ---
PROCEDURE: CT Abdomen and Pelvis without contrast. CLINICAL INDICATION: Hematuria, renal failure, sepsis TECHNIQUE: CT scan of the abdomen and pelvis without contrast was performed on a multidetector hig h-resolution CT scanner. The patient was scanned without intravenous contrast. 900 cc of Redi-cat or al contrast was administered . Coronal and sagittal reformatted images were obtained from the axial source images. Images were reviewed on a high-resolution PACS workstation. The total exam CTDI equal s 14.73 mGy and the total exam DLP equals 1017.36 mGy-cm. The patient's arms are by his side with re sultant beam-hardening artifact projected over the abdomen. One or more the following dose reduction techniques were utilized: Automated exposure control, adjus tment of the mA/ or kV according to patient's size, or use of iterative reconstruction technique. COMPARISON: Renal ultrasound of 01/26/[address] abdomen and pelvis of 11/01/2016 FINDINGS: Bilateral lower lobe atelectasis/consolidation increased compared to previous CT. Emphysema apparent at lung bases. There is nonspecific approximate 5 mm nodular density in the lingula anteriorly med ially not significantly changed compared to previous study. Appearance of mild "tree in bud" opaciti es in the right middle lung lobe suggestive of infectious bronchiolitis. Calcified granulomas again apparent in the lower lung lobes. Coronary artery calcification. Gastrostomy tube again seen in [facility]. The stomach is not distended with oral contrast. No abnormality is seen in the spleen. No a bnormality is seen in the adrenals or pancreas. Right upper and mid renal masses are again seen milton picious for renal cell carcinoma measuring approximately 3 cm in the upper right kidney and 3.5 cm i n the mid right kidney do not appear to be significantly changed compared to previous CT when direct ly comparing images. There is new moderate right hydronephrosis appearing since the previous CT and new mild to moderate left hydronephrosis appearing since the previous CT. There is appearance o f some contrast in bilateral renal collecting systems and ureters. There is a 2.9 cm apparent cyst arising from the lower left kidney not significantly changed compared to previous CT. Lopez cathet er in bladder. Small amount of air bladder consistent with the Lopez. The prostate does not appear to be significantly enlarged. Nonspecific mild presacral edema again seen. Anterior upper abdomin al wall hernia again seen containing fat and nondilated large and small bowel without evidence of in carceration. Orally administered contrast is seen in the colon excluding complete small bowel obstr uction. No dilated small bowel loops are seen. Small to moderate inguinal hernias containing fat only left larger than right again seen. Calcification in abdominal aorta and iliac arteries. No ab dominal aortic aneurysm is seen. No definite enlarged lymph nodes are seen. The gallbladder is unremarkable. No ascites is seen. There is subcutaneous edema again seen. There is diffuse osteop enia. Mild osteoarthrosis at hips. Heterotopic ossification again seen adjacent to the left upper posterior acetabulum. Compression fracture apparent L4 vertebral body again seen. IMPRESSION: Right upper and mid renal masses again seen suspicious for renal cell carcinoma not significantly ch anged compared to previous CT. New moderate right hydronephrosis and mild to moderate left hydroneph rosis and mildly dilated ureters right larger than left appearing since previous CT. Appearance of s ome contrast in bilateral renal collecting systems and ureters which could be secondary to previous procedure. Bilateral lower lobe atelectasis/consolidation increased compared to previous CT. Appeara nce of mild "tree in bud" opacities in the right middle lung lobe suggestive of infectious bronchiol itis appearing since previous CT. Gastrostomy tube in stomach. Anterior upper abdominal wall hernia again seen containing fat and nondilated large and small bowel without evidence of incarceration. Atherosclerosis. Small to moderate inguinal hernias containing fat only left larger than right again seen. Please see above. RPTAT: HJES .Tej Reid MD, MD Date Time Electronically viewed and signed by .Tej Reid MD, on 01/27/2017 04:37 .S/
[2017-01-27] MEDS: PANTOPRAZOLE IV 80 MG in SOD CHLORIDE 0.9% 100 ML IV SCH ×2 (04:39→16:24)
[2017-01-27 05:12] LABS: AADO2 Arterial 132.6 mmHg (7.0-24.0); Allen Test ACCEPTAB; Arterial Base Excess -2.5 mmol/L (-3.0-3); Arterial COHb 0.3 % (0.0-3.0); Arterial Fraction of Oxyhgb 96.9 % (93.0-99.0); Arterial HCO3 21.1 mmol/L (22.0-26.0); Arterial MetHb 0.6 % (0.0-1.5); MODE VENT - AC
[2017-01-27 08:05] LABS: ADD SCAN DIFF NO
[2017-01-27 08:13] LABS: ABNORMAL IP MESSAGE 1; EOSINOPHILS # 0.3 10^3/ul (0.0-0.5); EOSINOPHILS % 8.7 % (0.0-7.0); HEMATOCRIT 23.9 % (42.0-52.0); HEMOGLOBIN 7.5 g/dl (14.0-18.0); LYMPHOCYTES # 0.2 10^3/ul (0.8-2.9); LYMPHOCYTES % 5.7 % (15.0-51.0); MEAN CORPUSCULAR HEMOGLOBIN 30.9 pg (29.0-33.0); MEAN CORPUSCULAR HGB CONC 31.4 g/dl (32.0-37.0); MEAN CORPUSCULAR VOLUME 98.4 fl (82.0-101.0); MEAN PLATELET VOLUME 13.6 fl (7.4-10.4); MONOCYTE # 0.3 10^3/ul (0.3-0.9); MONOCYTES % 8.4 % (0.0-11.0); NEUTROPHIL # 2.6 10^3/ul (1.6-7.5); NEUTROPHILS % 76.6 % (39.0-77.0); PLATELET COUNT 110 10^3/UL (140-415); RED BLOOD COUNT 2.43 10^6/ul (4.70-6.10); RED CELL DISTRIBUTION WIDTH 17.5 % (11.5-14.5); WHITE BLOOD COUNT 3.3 10^3/ul (4.8-10.8)
[2017-01-27 08:27] LABS: MAGNESIUM 2.7 mg/dl (1.7-2.5); PHOSPHORUS 6.1 mg/dl (2.5-4.9)
[2017-01-27 08:29] LABS: ALBUMIN 2.1 g/dl (3.3-4.9); ALBUMIN/GLOBULIN RATIO 0.7; BILIRUBIN,INDIRECT 0.1 mg/dl (0-1.1); BILIRUBIN,TOTAL 0.1 mg/dl (0.2-1.3); CALCIUM 7.8 mg/dl (8.4-10.2); CREATININE 2.69 mg/dl (0.61-1.24); POTASSIUM 4.3 mmol/L (3.5-5.1); TOTAL PROTEIN 5.1 g/dl (6.1-8.1)
--- NOTE | 2017-01-27 08:32 | PN ---
DATE: 01/27/2017 SUBJECTIVE: The patient remains critically ill, on full ventilatory support. The patient has been receiving aggressive IV hydration and has had adequate urinary output. The patient remains markedly uremic with significant azotemia. Hemodialysis is pending once a Jelani catheter is placed. The patient continues to have gross hematuria requiring hourly flushes. Urology is aware of the patient . No other acute events noted. OBJECTIVE: VITAL SIGNS: Blood pressure 88/56, respirations 19, pulse 69, temperature 98.0. I'S AND O'S: The patient has 6.7 L in, 3.1 L out. HEENT: Head is normocephalic. Pupils are reactive to light. NECK: Shows trach. HEART: Regular rate. LUNGS: Show diminished breath sounds at the base. ABDOMEN: Soft, nontender to palpation, no rebound or guarding. EXTREMITIES: Negative for clubbing, cyanosis. No edema. DERMATOLOGIC: No rashes. MUSCULOSKELETAL: Positive wounds. NEUROLOGIC: Limited exam as the patient is obtunded. LABORATORY DATA: Shows a hemoglobin 8.1, hematocrit of 26.0. Laboratory data from January 26 shows sodium 146, potassium 4.8, BUN greater than 240, creatinine 3.42. Repeat renal panel is pending. IMAGING STUDIES: Shows a renal ultrasound that shows large complex mass in the upper pole of the ri ght kidney suspicious for renal cell carcinoma, echogenic kidneys consistent with medical renal dise ase. No evidence of hydronephrosis. A CT of the abdomen and pelvis shows right upper mid renal mas ses suspicious for renal cell carcinoma, no change from prior CT scan, new moderate right hydronephr osis, and dilated distal ureters, right larger than left noted. MICROBIOLOGY: Blood cultures were reviewed, positive gram-negative rods. ASSESSMENT AND PLAN: 1. Nonoliguric acute kidney injury on top of chronic kidney disease stage IV with a previous baseli ne creatinine around 1.5 to 2.5 mg/dL. Etiology of acute kidney injury is likely multifactorial sec ondary to prerenal volume depletion with superimposed acute tubular necrosis and possible obstructiv e uropathy. The patient's CT scan shows evidence of bilateral hydronephrosis, although renal ultras ound showed no active evidence of hydronephrosis. Also noted is a renal mass suspicious for renal c ell carcinoma. The patient's renal function has showed no significant improvement despite adequate urinary output. Plan was for hemodialysis given the patient's marked Azotemia and uremia. Will genaro n for dialysis for solute clearance once a Jelani catheter is placed. Dr. Bennett was informed. Additionally, Urology is following the patient for evaluation of ongoing hematuria and possible obs tructive uropathy. At this point, will continue current treatment plan. Continue aggressive IV hyd ration. Await hemodialysis, and monitor for any signs of renal recovery. 2. Gross hematuria. Etiology is unclear if this is from a renal mass versus Lopez trauma. Urology was made aware of the patient. Will continue bladder irrigation and monitor closely. 3. Hypernatremia. The patient has free water deficit of approximately 4 L, continue free water flu shes, hypertonic fluids, and monitor closely. 4. Hyperkalemia secondary to acute kidney injury, improved. Continue IV fluids. The patient is st atus post Kayexalate, insulin, and dextrose. 5. Uremia. Etiology is secondary to acute kidney injury. The patient is markedly azotemia. This is partly due to possible gastrointestinal bleed. Plan is for hemodialysis for solute clearance. W ould otherwise continue IV hydration, will monitor closely. 6. Severe anemia. Etiology multifactorial secondary to chronic kidney disease, questionable gastro intestinal bleed, questionable uremic bleeding. The patient is currently on Protonix drip, is statu s post multiple blood transfusions. Continue to monitor H and H levels. Consider giving DDAVP. 7. Ventilator-dependent respiratory failure. Vent settings have been reviewed. ABG has been revie wed. Continue to monitor. Follow up with pulmonary. 8. Sepsis secondary to healthcare-associated pneumonia and urinary tract infection, decubitus wound . Continue current antibiotic regimen. 9. Acute on chronic encephalopathy. Etiology is toxic metabolic. Continue to monitor. 10. History of dysphagia, status post percutaneous endoscopic gastrostomy. Continue free water flu shes, resume tube feedings when clinically stable. 11. History of atrial fibrillation. 12. Esophagitis/gastritis. Continue medical management. Continue PPI. 13. Mineral bone disorder. Continue to monitor calcium and phosphorus levels. 14. Diabetes. Continue Accu-Cheks and insulin sliding scale. 15. Decubitus wound. Continue wound care. Please note I spent over 35 minutes of critical care time with this patient. Dictated By: JACOB GOMEZ/LESLY Conf#: [id number] DID#: [id number]
[2017-01-27] MEDS: HYDROGEN PEROXIDE 118 ML TOP SCH ×2 (08:46→20:14)
[2017-01-27] MEDS: MEROPENEM 1 GM/100 ML (PMX) 100 ML IVPB SCH ×2 (08:46→20:13)
[2017-01-27] MEDS: LINEZOLID 600 MG/D5W (PMX) 300 ML IVPB SCH ×2 (08:46→21:11)
[2017-01-27] MEDS: COLLAGENASE 30 GM TUBE TOP SCH (08:46)
--- NOTE | 2017-01-27 10:23 | CONS ---
Date/Time of Note Date/Time of Note DATE: 01/27/17 TIME: 10:20 Assessment/Plan Assessment/Plan Additional Assessment/Plan Ventilator setting; AC of 16, tidal volume 500, PEEP of 5, 40% FiO2. Assessment recommendations; next 1. Patient with chronic respiratory failure with severe anoxic encephalopathy admitted for severe anemia. 2. Significant hematuria. 3. Possibly underlying renal carcinoma. 4. Bilateral hydronephrosis. 5. Renal insufficiency. However serum creatinine is improving. 6. Bilateral lower lobe pneumonia. Possibly aspiration. 7. Sepsis. Continue current treatment. Monitor H&H. Patient has been followed by the urologist for hematuria. Consultation Date/Type/Reason Admit Date/Time Jan 26, 2017 at 01:35 Initial Consult Date Type of Consultation: Pulmonary/critical care 24 HR Interval Summary Free Text/Dictation Patient condition remains critical. Remains essentially unresponsive due to what appears to be chronic anoxic encephalopathy. Patient however not requiring any pressor support. Patient still having significant urinary tract bleeding. General exam; elderly male, on ventilator via tracheostomy, unresponsive, currently in no distress. Exam/Review of Systems Vital Signs Vitals Vital Signs Date Time Temp Pulse Resp B/P Pulse Ox O2 Delivery O2 Flow Rate FiO2 01/27/17 09:20 64 24 100 40 01/27/17 08:00 97.6 101/66 Mechanical Ventilator Intake and Output 01/26/17 01/26/17 01/27/17 15:00 23:00 07:00 Intake Total 1970 ml 3070 ml 1315 ml Output Total 570 ml 1225 ml 1450 ml Balance 1400 ml 1845 ml -135 ml Exam HEENT exam is; supple neck, no JVD. No lymphadenopathy. Midline trachea. No thyromegaly. Tracheostomy in place. Chest examined; diminished breath on lung bases bilaterally. Upper lobes are fairly clear. S1-S2 audible, no murmurs. Regular rhythm. Abdomen examination; soft, there is a very large epigastric reducible hernia present. There is well-healed laparotomy scar. G-tube in place. Bowel sounds are sluggish. Extremity exam; no peripheral edema. PEDIATRIC PHYSIATRIST exam is; patient remains unresponsive. Results Result Diagram: 01/27/17 0725 01/27/17 0725 Results 24 hrs Laboratory Tests Test 01/26/17 11:00 01/26/17 14:58 01/26/17 20:00 01/26/17 22:00 Urine Color BROWN Urine Clarity CLEAR Urine pH 8.5 Urine Specific [place] 1.010 Urine Ketones NEGATIVE Urine Nitrite NEGATIVE Urine Bilirubin NEGATIVE Urine Urobilinogen 0.2 E.U./dL Urine Leukocyte Esterase 2+ H Urine Microscopic RBC >200 Urine Microscopic WBC 25-50 Urine Epithelial Cells FEW Urine Bacteria MANY Urine Hemoglobin 3+ H Urine Random Creatinine < 12.40 L Urine Random Sodium 36 Urine Glucose 0.25% H Urine Total Protein 320.0 H Hemoglobin 7.3 #L 8.1 L Hematocrit 23.2 L 26.0 L Sodium Level 156 H Potassium Level 4.8 Chloride Level 118 H Carbon Dioxide Level 23 Anion Gap 20 H Blood Urea Nitrogen > 240 H Creatinine 3.42 H Glucose Level 187 Calcium Level 8.9 Urine Osmolality 223 L Test 01/27/17 05:00 01/27/17 05:19 01/27/17 07:25 Blood Gas Specimen Source Blood arterial Arterial Blood Date Drawn 01/27/2017 5:00:59 AM Arterial Blood pH (Temp corrected) 7.449 Arterial Blood pCO2 (Temp correct) 31.2 L Arterial Blood pO2 (Temp corrected) 116.7 H Arterial Blood HCO3 21.1 L Arterial Blood Base Excess -2.5 Arterial Blood Oxygen Saturation 97.8 Pedro Test ACCEPTAB Arterial Blood Gas Puncture Site Left Radial Arterial Blood Carboxyhemoglobin 0.3 Arterial Blood Methemoglobin 0.6 Blood Gas A-a O2 Differential 132.6 H Oxyhemoglobin Percent 96.9 Total Hemoglobin 7.0 L Blood Gas Temperature 37.0 Blood Gas Respiration Rate 16.0 Blood Gas Actual Respiration Rate 21 Blood Gas Modality VENT - AC FiO2 40.0 Blood Gas Tidal Volume 500.0 Blood Gas Low PEEP Setting 5.0 Blood Gas Notified Whom UP Blood Gas Notified Time 01/27/2017 5:12:47 AM Lab Scanned Report BLOOD TRANSFUSION White Blood Count 3.3 L Red Blood Count 2.43 #L Hemoglobin 7.5 L Hematocrit 23.9 L Mean Corpuscular Volume 98.4 Mean Corpuscular Hemoglobin 30.9 Mean Corpuscular Hemoglobin Concent 31.4 L Red Cell Distribution Width 17.5 H Platelet Count 110 L Mean Platelet Volume 13.6 H Neutrophils % 76.6 Lymphocytes % 5.7 L Monocytes % 8.4 Eosinophils % 8.7 H Basophils % 0.0 Nucleated Red Blood Cells % 0.0 Neutrophils # 2.6 Lymphocytes # 0.2 L Monocytes # 0.3 Eosinophils # 0.3 Basophils # 0.0 Nucleated Red Blood Cells # 0.0 Sodium Level 149 H Potassium Level 4.3 Chloride Level 117 H Carbon Dioxide Level 22 Anion Gap 14 Blood Urea Nitrogen 226 H Creatinine 2.69 H Glucose Level 104 # Lactic Acid Level 1.1 Calcium Level 7.8 L Phosphorus Level 6.1 H Magnesium Level 2.7 H Total Bilirubin 0.1 L Direct Bilirubin 0.00 Indirect Bilirubin 0.1 Aspartate Amino Transf (AST/SGOT) 16 Alanine Aminotransferase (ALT/SGPT) 24 Alkaline Phosphatase 57 Total Protein 5.1 #L Albumin 2.1 L Globulin 3.00 Albumin/Globulin Ratio 0.70 Medications Medications Current Medications Ondansetron HCl (Zofran Inj) 4 mg Q6H PRN IV NAUSEA AND/OR VOMITING; Start 07/04 at 00:00 Acetaminophen (Tylenol Liquid) 650 mg Q6H PRN PO PAIN LEVEL 1-3 OR FEVER; Start 01/26/17 at 00:00 Morphine Sulfate (morphine) 2 mg Q4H PRN IV PAIN LEVEL 7-10; Start 01/26/17 at 00:00 Lorazepam 1 mg 1 mg Q2H PRN IV ANXIETY; Start 01/26/17 at 00:00 Linezolid 300 ml @ 300 mls/hr Q12 IVPB Last administered on 01/27/17 08:46; Admin Dose 300 MLS/HR; Start 01/26/17 at 00:00 Dextrose 1,000 ml @ 100 mls/hr Q10H IV ; Start 01/26/17 at 06:00 Meropenem 100 ml @ 200 mls/hr Q12 IVPB Last administered on 01/27/17 08:46; Admin Dose 200 MLS/HR; Start 01/26/17 at 09:00 Pantoprazole 80 mg/Sodium Chloride 100 ml @ 10 mls/hr Q10H IV Last administered on 01/27/17 04:39; Admin Dose 10 MLS/HR; Start 01/26/17 at 06:00 Norepinephrine/ Dextrose (Levophed/D5W) 500 ml @ 1.87 mls/hr TITRATE IV ; Start 01/26/17 at 06:00 Collagenase 1 applic 1 applic DAILY TOP Last administered on 01/27/17 08:46; Admin Dose 1 APPLIC; Start 01/26/17 at 09:00 Sodium Chloride (1/2 NS) 1,000 ml @ 150 mls/hr Q6H40M IV Last administered on 01/27/17 07:49; Admin Dose 150 MLS/HR; Start 01/26/17 at 08:00 Hydrogen Peroxide (Hydrogen Peroxide) 1 applic QHS TOP Last administered on 20:46; Admin Dose 1 APPLIC; Start 01/26/17 at 21:00 Hydrogen Peroxide (Hydrogen Peroxide) 1 applic DAILY TOP Last administered on 08:46; Admin Dose 1 APPLIC; Start 01/27/17 at 09:00 AARON HUFF Jan 27, 2017 10:23
[2017-01-27] MEDS ORDERED: PENDING SANTYL ORDER FOR WOUND CARE XX PRN (11:00)
--- NOTE | 2017-01-27 13:03 | RADRPT ---
PROCEDURE: XR Chest. CLINICAL INDICATION: Respiratory distress. TECHNIQUE: Chest x-ray, single view. COMPARISON: 01/25/2017. FINDINGS: The cardiac silhouette is slightly magnified. A tracheostomy tube is in place. Hazy opacification of the lower chest is present and unchanged. Imaging findings suggest a combination of pleural effu devika, atelectasis and / or airspace disease. the appearance of the chest is unchanged. Osseous str uctures appear demineralized. An old fracture of the right clavicle is observed. IMPRESSION: Unchanged appearance of the chest which may reflect a combination of bilateral pleural effusion, ate lectasis and / or airspace disease. RPTAT: HLST .Jackelin Frausto MD, MD Date Time Electronically viewed and signed by .Jackelin Frausto MD, on 01/27/2017 13:02 .T/
--- NOTE | 2017-01-27 13:29 | CONS ---
DATE OF ADMISSION: 01/26/2017 DATE OF CONSULTATION: 01/27/2017 TYPE OF CONSULTATION: Infectious disease. REASON FOR CONSULTATION: Antibiotic management. HISTORY OF PRESENT ILLNESS: Patricio Araujo is a 71-year-old male [facility]. His problems include: 1. Chronic encephalopathy. 2. Chronic ventilator dependent respiratory failure. 3. Status post tracheostomy. 4. Dysphagia, status post G-tube placement. 5. Chronic renal disease. 6. Cardiomyopathy with ejection fraction of 40% per 2D echo. 7. Anemia. 8. Gastrointestinal bleed. 9. History of gastric ulcer. 10. Type 2 diabetes. 11. Cardiac arrhythmia. 12. Stage IV pressure ulcer. The patient was [facility] from [facility] facility for abnormal labs. His BUN was 333 and his creat inine was 4.73, sodium 153, potassium 7. In the emergency room, his white count was 4.4, hemoglobin 4.7, platelets 146, lactic acid was 3. 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 He was admitted here 6 weeks ago from a longterm, he was septic and his urine grew multidrug resistant organisms, pseudomonas. Blood cultures showed coagulase negative staph and he had MRSA in his blood. The patient also has a history of Josephine stridium difficile. In the emergency room, he was hypotensive. Chest x-ray showed interval develop ment of right greater than left lower lobe consolidation, and basilar pneumonia with possible parapn eumonic effusions. The patient was started on cefepime and Levaquin as well as bicarbonate and was admitted to the ICU. The patient's microbiology, he has gram-negative rods and staph species in his blood. His urine is growing Proteus mirabilis. Blood cultures, 1 out of 2 were positive. The patient was seen in consu ltation also by Dr. Kelly and he was placed on linezolid and meropenem. A CT scan of the abdomen and pelvis showed right upper and mid renal masses seen again and suspicious for renal cell carcinom a, not significantly changed from previous CT scan. New mild right hydronephrosis and mild to moder ate left hydronephrosis and mildly dilated ureter right larger than left. As noted, he was seen by Dr. Kelly and also in pulmonary consultation by Dr. Moura patient remains critically ill on ventil ator support. He has marked uremia. Hemodialysis is pending once the Jelani catheter is placed. The patient continues to have gross hematuria requiring hourly flushes. Urology is aware of the pat ient. PAST MEDICAL HISTORY: Operations as outlined. FAMILY HISTORY: Noncontributory. SOCIAL HISTORY: Does not smoke, drink or abuse drugs. ALLERGIES: NONE TO PENICILLIN, SULFA OR FOODS. MEDICATIONS: Per chart. REVIEW OF SYSTEMS: As per HPI. PHYSICAL EXAMINATION: GENERAL: The patient is a chronically ill-appearing male who is obtunded on a respirator. He has a trach, he has a PEG. He is going to get a Jelani catheter. VITAL SIGNS: Blood pressure is 88/56. He is on pressors. SKIN: Without generalized rash. HEENT: Within normal limits. NECK: Supple. LYMPH NODES: None palpable. CHEST: Decreased breath sounds at the bases. HEART: Without murmur or gallop. ABDOMEN: Soft, nontender. He has a tracheostomy in the neck, he has a G-tube in abdomen. No organ osplenomegaly or masses. EXTREMITIES: Without cyanosis, clubbing, or edema. RECTAL AND GENITAL: Exam is deferred. NEUROLOGIC EVALUATION: The patient is obtunded on a respirator. IMPRESSION AND PLAN: The patient has multiple problems including septic shock. He has chronic ence phalopathy and he should be a hospice patient. He has too many comorbidities. He has respiratory f ailure. He has renal failure. He has inability to eat on his own. He has inability to think on hi s own. Currently on appropriate antibiotics with linezolid and meropenem. I want to thank the hospitalist, Dr. Kelly, and Dr. Moura, for asking me to see this unfortunate g entleman. Dictated By: BETHANY MCKENNA MD, JD/LESLY Conf#: [id number] DID#: [id number]
--- NOTE | 2017-01-27 14:38 | PN ---
DATE: 01/27/2017 INFECTIOUS DISEASE PROGRESS NOTE SUBJECTIVE: No acute changes. No fevers. The patient is lying comfortably in bed. LABORATORY DATA: WBC date 3.3, H and H 7.5 and 33.9, platelets 110, neutrophils 76.6, BUN 226, crea tinine 2.69. MICROBIOLOGY: Urine culture growing Proteus mirabilis. Blood culture growing gram-negative rods an d staph species. DIAGNOSTICS: CT of the abdomen and pelvis from yesterday revealed right upper and mid renal masses suspicious for renal cell carcinoma, not significantly changed compared to previous CT, new moderate right hydronephrosis and mild to moderate left hydronephrosis and mildly dilated ureters, questiona ble infectious bronchiolitis, gastrostomy tube in the stomach. INDWELLINGS: The patient has trach, PEG, Lopez. ANTIMICROBIALS: The patient is on: 1. Meropenem. 2. Zyvox. 3. Status post vancomycin. PHYSICAL EXAMINATION: GENERAL: This is a chronically ill-appearing, elderly man who is noncommunicative, lying comfortabl y in bed. HEENT: Head atraumatic, normocephalic. Sclerae anicteric. Buccal mucosa dry. NECK: Supple. Tracheostomy present. CHEST: Rise symmetrical. Breath sounds diminished to bases. HEART: S1, S2. ABDOMEN: Soft, bowel sounds present. EXTREMITIES: Without cyanosis. SKIN: With unstageable sacral decubitus as well as multiple pressure sores on his legs. ASSESSMENT: 1. Severe sepsis status post shock. 2. Polymicrobial bacteremia. 3. Healthcare-associated pneumonia. 4. Urinary tract infection. 5. Unstageable sacral decubitus. 6. Bilateral hydronephrosis. 7. Possible renal cell carcinoma. 8. Acute renal failure. PLAN: The patient is hemodynamically stable, covered with appropriate antimicrobials, pending final cultures. Continue following recommendation of licensed tax consultant. Dictated By: CHRISS RIVAS ESL TEACHER for BETHANY CASTILLO/LESLY Conf#: [id number] DID#: [id number]
[2017-01-27 15:06] LABS: CALCIUM 7.8 mg/dl (8.4-10.2); CREATININE 2.9 mg/dl (0.61-1.24); POTASSIUM 3.4 mmol/L (3.5-5.1)
--- NOTE | 2017-01-27 15:22 | PN ---
Date/Time of Note Date/Time of Note DATE: 01/27/17 TIME: 15:17 Assessment/Plan VTE Prophylaxis VTE Prophylaxis Intervention: SCD's Lines/Catheters IV Catheter Type (from Nrs): Peripheral IV Urinary Cath still in place: Yes Reason Cath still needed: other (indicate) Assessment/Plan Chief Complaint/Hosp Course ASSESSMENT AND PLAN: 1. Sepsis. continue ICU care, continue aggressive IV fluid hydration, IV antibiotics and Tylenol p.r.n. pain, fevers, antiemetics and pain control medications. Followup labs in the morning. IV fluids. 2. Hyperkalemia, likely secondary to acute renal insufficiency, follow up renal recommendations, patient did receive Kayexalate, calcium gluconate, dextrose, insulin earlier. Monitor basic metabolic panel every morning. 3. Severe hypernatremia, again, free water deficit of about 4 to 4.5 liters. Follow up renal recommendations as far as hypotonic IV fluids, may need to give the patient free water as well. 4. Acute on chronic renal failure, again, severely elevated BUN and creatinine levels. Continue aggressive IV fluids. Follow up urine electrolytes, aggressive IV fluid hydration. If there is not any meaningful recovery of renal function including decreased urine output, may need to consider hemodialysis. 5. History of gastrointestinal bleed in the past and severe anemia, status post PRBC transfusion. The patient is on Protonix drip. Follow up CBC levels daily. 6. Ventilator dependent respiratory failure. Again, will get pulmonary consult. Continue mechanical ventilation as well. 7. History of Pseudomonas UTI and get ID consult. Continue broad spectrum antibiotics. 8. Anemia, status post transfusion of packed red blood cells, continue to monitor 9. History of chronic encephalopathy. Continue to monitor. 10. Gastrointestinal prophylaxis, proton pump inhibitors. 11. Deep venous thrombosis prophylaxis, sequential compression devices. Problems: Subjective 24 Hr Interval Summary Free Text/Dictation No acute event throughout last night Patient blood pressure has been on the low side off pressors Tolerating vent Afebrile Tolerating PEG tube feeding Exam/Review of Systems Vital Signs Vitals Vital Signs Date Time Temp Pulse Resp B/P Pulse Ox O2 Delivery O2 Flow Rate FiO2 01/27/17 13:25 65 20 100 40 01/27/17 12:00 97.6 98/62 Mechanical Ventilator Intake and Output 01/26/17 01/26/17 01/27/17 15:00 23:00 07:00 Intake Total 1970 ml 3070 ml 1315 ml Output Total 570 ml 1225 ml 1450 ml Balance 1400 ml 1845 ml -135 ml Exam General: The patient is in acute distress. Decubitus ulcer posterior aspect of the skull HEENT: Atraumatic, normocephalic. The pupils are equal and round . Neck: Tracheostomy in place Chest: Normal Lungs: Decreased breath sounds bilateral lower lung field Heart: Normal S1-S2, Regular rhythm and rate. Abdomen: Soft , nontender, nondistended , bowel sounds are present. PEG tube in place Extremities: Decubitus ulcer bilateral lower extremities, no edema no cyanosis Lumbar: Decubitus ulcer lumbar sacral stage III-4 Neurologic: Patient is awake, arousable, does not respond to pain or verbal stimuli Results Result Diagram: 01/27/17 0725 01/27/17 0725 Results 24 hrs Laboratory Tests Test 01/26/17 20:00 01/26/17 22:00 01/27/17 05:00 01/27/17 05:19 Hemoglobin 8.1 L Hematocrit 26.0 L Urine Osmolality 223 L Blood Gas Specimen Source Blood arterial Arterial Blood Date Drawn 01/27/2017 5:00:59 AM Arterial Blood pH (Temp corrected) 7.449 Arterial Blood pCO2 (Temp correct) 31.2 L Arterial Blood pO2 (Temp corrected) 116.7 H Arterial Blood HCO3 21.1 L Arterial Blood Base Excess -2.5 Arterial Blood Oxygen Saturation 97.8 Pedro Test ACCEPTAB Arterial Blood Gas Puncture Site Left Radial Arterial Blood Carboxyhemoglobin 0.3 Arterial Blood Methemoglobin 0.6 Blood Gas A-a O2 Differential 132.6 H Oxyhemoglobin Percent 96.9 Total Hemoglobin 7.0 L Blood Gas Temperature 37.0 Blood Gas Respiration Rate 16.0 Blood Gas Actual Respiration Rate 21 Blood Gas Modality VENT - AC FiO2 40.0 Blood Gas Tidal Volume 500.0 Blood Gas Low PEEP Setting 5.0 Blood Gas Notified Whom UP Blood Gas Notified Time 01/27/2017 5:12:47 AM Lab Scanned Report BLOOD TRANSFUSION Test 01/27/17 07:25 White Blood Count 3.3 L Red Blood Count 2.43 #L Hemoglobin 7.5 L Hematocrit 23.9 L Mean Corpuscular Volume 98.4 Mean Corpuscular Hemoglobin 30.9 Mean Corpuscular Hemoglobin Concent 31.4 L Red Cell Distribution Width 17.5 H Platelet Count 110 L Mean Platelet Volume 13.6 H Neutrophils % 76.6 Lymphocytes % 5.7 L Monocytes % 8.4 Eosinophils % 8.7 H Basophils % 0.0 Nucleated Red Blood Cells % 0.0 Neutrophils # 2.6 Lymphocytes # 0.2 L Monocytes # 0.3 Eosinophils # 0.3 Basophils # 0.0 Nucleated Red Blood Cells # 0.0 Sodium Level 149 H Potassium Level 4.3 Chloride Level 117 H Carbon Dioxide Level 22 Anion Gap 14 Blood Urea Nitrogen 226 H Creatinine 2.69 H Glucose Level 104 # Lactic Acid Level 1.1 Calcium Level 7.8 L Phosphorus Level 6.1 H Magnesium Level 2.7 H Total Bilirubin 0.1 L Direct Bilirubin 0.00 Indirect Bilirubin 0.1 Aspartate Amino Transf (AST/SGOT) 16 Alanine Aminotransferase (ALT/SGPT) 24 Alkaline Phosphatase 57 Total Protein 5.1 #L Albumin 2.1 L Globulin 3.00 Albumin/Globulin Ratio 0.70 Medications Medications Current Medications Ondansetron HCl (Zofran Inj) 4 mg Q6H PRN IV NAUSEA AND/OR VOMITING; Start 07/04 at 00:00 Acetaminophen (Tylenol Liquid) 650 mg Q6H PRN PO PAIN LEVEL 1-3 OR FEVER; Start 01/26/17 at 00:00 Morphine Sulfate (morphine) 2 mg Q4H PRN IV PAIN LEVEL 7-10; Start 01/26/17 at 00:00 Lorazepam 1 mg 1 mg Q2H PRN IV ANXIETY; Start 01/26/17 at 00:00 Linezolid 300 ml @ 300 mls/hr Q12 IVPB Last administered on 01/27/17 08:46; Admin Dose 300 MLS/HR; Start 01/26/17 at 00:00 Dextrose 1,000 ml @ 100 mls/hr Q10H IV ; Start 01/26/17 at 06:00 Meropenem 100 ml @ 200 mls/hr Q12 IVPB Last administered on 01/27/17 08:46; Admin Dose 200 MLS/HR; Start 01/26/17 at 09:00 Pantoprazole 80 mg/Sodium Chloride 100 ml @ 10 mls/hr Q10H IV Last administered on 01/27/17 04:39; Admin Dose 10 MLS/HR; Start 6/11/17 at 06:00 Norepinephrine/ Dextrose (Levophed/D5W) 500 ml @ 1.87 mls/hr TITRATE IV ; Start 01/26/17 at 06:00 Collagenase 1 applic 1 applic DAILY TOP Last administered on 01/27/17 08:46; Admin Dose 1 APPLIC; Start 01/26/17 at 09:00 Sodium Chloride (1/2 NS) 1,000 ml @ 150 mls/hr Q6H40M IV Last administered on 01/27/17 07:49; Admin Dose 150 MLS/HR; Start 01/26/17 at 08:00 Hydrogen Peroxide (Hydrogen Peroxide) 1 applic QHS TOP Last administered on 20:46; Admin Dose 1 APPLIC; Start 01/26/17 at 21:00 Hydrogen Peroxide (Hydrogen Peroxide) 1 applic DAILY TOP Last administered on 08:46; Admin Dose 1 APPLIC; Start 01/27/17 at 09:00 Miscellaneous Information (Pending [facility] Order For Wound Care) This patient carrion... PRN PRN XX WOUND CARE; Start 01/27/17 at 11:00 IAM GÓMEZ MD Jan 27, 2017 15:22
[2017-01-27] MEDS ORDERED: POTASSIUM CHLORIDE 20 MEQ POWDER FOR ORAL SOLN GTB ONE (16:00)
--- NOTE | 2017-01-27 16:59 | RADRPT ---
PROCEDURE: Urinary bladder ultrasound . CLINICAL INDICATION: Urinary retention TECHNIQUE: Multiple sonographic images of the pelvis were obtained. The images were reviewed on a PACS workstation. COMPARISON: 01/26/2017 FINDINGS: The urinary bladder bladder is decompressed with Lopez catheter within it. RPTAT: AA IMPRESSION: Urinary bladder is decompressed with a Lopez catheter within it. .Meek Hobson MD, MD Date Time Electronically viewed and signed by .Meek Hobson MD, on 01/27/2017 16:59 .S/
--- NOTE | 2017-01-27 20:46 | CONS ---
Date/Time of Note Date/Time of Note DATE: 01/27/17 TIME: 20:39 Assessment/Plan Assessment/Plan Additional Assessment/Plan Gross hematuria etiology unclear. Most likely due to catheter irritation of his urinary mucosa Bilateral ureteral obstruction ureteral dilatation. This appears to have been first noticed in November. He does not appear to have bilateral obstruction as the catheter appears to be draining well. Rule out urothelial malignancy of the bladder. No stones are evident. Cystoscopy and retrograde pyelography would be the general recommendation to to determine the etiology of his ureteral obstruction. However given this patient' s severe comorbidities this may not be advisable leave that up to his internal medical staff. His urinary catheter is in good position bladder is empty on ultrasound and the urine is only slightly blood-tinged. I have instructed the nurses to continue manual irrigation as needed. 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 He has been admitted t for anemia and other nonneurologic conditions. Friday morning his catheter was clear and by Friday afternoon he developed hematuria. It is not clear if this was a result of the catheter change. In reviewing the chart the patient was recognized as having right sided hydronephrosis in November. Prior to that he did not have hydronephrosis. He was also seen to have a renal mass in November and possibly before that. There is no other urologic history available. He has intermittent renal failure and presently has diminishing renal function on admission but appears to be getting better. An ultrasound was recently done to confirm proper placement of the catheter as well as an empty bladder. I reviewed his CT scan which shows bilateral hydronephrosis and very dilated ureters all the way down to the bladder without apparent obstruction. He has bladder wall thickening and a Lopez catheter indwelling I do not see the reason for having bilateral ureteral obstruction. Yesterday the nurses were irrigating the catheter by hand said that there were a couple of clots. Social History Smoking Status: Unknown if ever smoked Exam/Review of Systems Vital Signs Vitals Vital Signs Date Time Temp Pulse Resp B/P Pulse Ox O2 Delivery O2 Flow Rate FiO2 01/27/17 17:58 65 22 99 30 01/27/17 12:00 97.6 98/62 Mechanical Ventilator Intake and Output 01/26/17 01/26/17 01/27/17 15:00 23:00 07:00 Intake Total 1970 ml 3070 ml 1475 ml Output Total 570 ml 1225 ml 1450 ml Balance 1400 ml 1845 ml 25 ml Exam Constitutional: frail, non-verbal Psych: other Head: normocephalic Neck: other Gastrointestinal: soft Genitourinary - Male: other (Catheter indwelling draining very faintly red urineUrethral erosion indicating chronic catheter) Results Result Diagram: 01/27/17 0725 01/27/17 1430 Results 24 hrs Laboratory Tests Test 01/26/17 22:00 01/27/17 05:00 01/27/17 05:19 01/27/17 07:25 Urine Osmolality 223 L Blood Gas Specimen Source Blood arterial Arterial Blood Date Drawn 01/27/2017 5:00:59 AM Arterial Blood pH (Temp corrected) 7.449 Arterial Blood pCO2 (Temp correct) 31.2 L Arterial Blood pO2 (Temp corrected) 116.7 H Arterial Blood HCO3 21.1 L Arterial Blood Base Excess -2.5 Arterial Blood Oxygen Saturation 97.8 Pedro Test ACCEPTAB Arterial Blood Gas Puncture Site Left Radial Arterial Blood Carboxyhemoglobin 0.3 Arterial Blood Methemoglobin 0.6 Blood Gas A-a O2 Differential 132.6 H Oxyhemoglobin Percent 96.9 Total Hemoglobin 7.0 L Blood Gas Temperature 37.0 Blood Gas Respiration Rate 16.0 Blood Gas Actual Respiration Rate 21 Blood Gas Modality VENT - AC FiO2 40.0 Blood Gas Tidal Volume 500.0 Blood Gas Low PEEP Setting 5.0 Blood Gas Notified Whom UP Blood Gas Notified Time 01/27/2017 5:12:47 AM Lab Scanned Report BLOOD TRANSFUSION White Blood Count 3.3 L Red Blood Count 2.43 #L Hemoglobin 7.5 L Hematocrit 23.9 L Mean Corpuscular Volume 98.4 Mean Corpuscular Hemoglobin 30.9 Mean Corpuscular Hemoglobin Concent 31.4 L Red Cell Distribution Width 17.5 H Platelet Count 110 L Mean Platelet Volume 13.6 H Neutrophils % 76.6 Lymphocytes % 5.7 L Monocytes % 8.4 Eosinophils % 8.7 H Basophils % 0.0 Nucleated Red Blood Cells % 0.0 Neutrophils # 2.6 Lymphocytes # 0.2 L Monocytes # 0.3 Eosinophils # 0.3 Basophils # 0.0 Nucleated Red Blood Cells # 0.0 Sodium Level 149 H Potassium Level 4.3 Chloride Level 117 H Carbon Dioxide Level 22 Anion Gap 14 Blood Urea Nitrogen 226 H Creatinine 2.69 H Glucose Level 104 # Lactic Acid Level 1.1 Calcium Level 7.8 L Phosphorus Level 6.1 H Magnesium Level 2.7 H Total Bilirubin 0.1 L Direct Bilirubin 0.00 Indirect Bilirubin 0.1 Aspartate Amino Transf (AST/SGOT) 16 Alanine Aminotransferase (ALT/SGPT) 24 Alkaline Phosphatase 57 Total Protein 5.1 #L Albumin 2.1 L Globulin 3.00 Albumin/Globulin Ratio 0.70 Test 01/27/17 14:30 Sodium Level 147 H Potassium Level 3.4 L Chloride Level 115 H Carbon Dioxide Level 22 Anion Gap 13 Blood Urea Nitrogen 197 H Creatinine 2.90 H Glucose Level 111 Calcium Level 7.8 L Medications Medications Current Medications Ondansetron HCl (Zofran Inj) 4 mg Q6H PRN IV NAUSEA AND/OR VOMITING; Start 07/04 at 00:00 Acetaminophen (Tylenol Liquid) 650 mg Q6H PRN PO PAIN LEVEL 1-3 OR FEVER; Start 01/26/17 at 00:00 Morphine Sulfate (morphine) 2 mg Q4H PRN IV PAIN LEVEL 7-10; Start 01/26/17 at 00:00 Lorazepam 1 mg 1 mg Q2H PRN IV ANXIETY; Start 01/26/17 at 00:00 Linezolid 300 ml @ 300 mls/hr Q12 IVPB Last administered on 01/27/17 08:46; Admin Dose 300 MLS/HR; Start 01/26/17 at 00:00 Dextrose 1,000 ml @ 100 mls/hr Q10H IV ; Start 01/26/17 at 06:00 Meropenem 100 ml @ 200 mls/hr Q12 IVPB Last administered on 01/27/17 08:46; Admin Dose 200 MLS/HR; Start 01/26/17 at 09:00 Pantoprazole 80 mg/Sodium Chloride 100 ml @ 10 mls/hr Q10H IV Last administered on 01/27/17 16:24; Admin Dose 10 MLS/HR; Start 01/26/17 at 06:00 Norepinephrine/ Dextrose (Levophed/D5W) 500 ml @ 1.87 mls/hr TITRATE IV ; Start 01/26/17 at 06:00 Collagenase 1 applic 1 applic DAILY TOP Last administered on 01/27/17 08:46; Admin Dose 1 APPLIC; Start 01/26/17 at 09:00 Sodium Chloride (1/2 NS) 1,000 ml @ 150 mls/hr Q6H40M IV Last administered on 01/27/17 16:49; Admin Dose 150 MLS/HR; Start 01/26/17 at 08:00 Hydrogen Peroxide (Hydrogen Peroxide) 1 applic QHS TOP Last administered on 20:46; Admin Dose 1 APPLIC; Start 01/26/17 at 21:00 Hydrogen Peroxide (Hydrogen Peroxide) 1 applic DAILY TOP Last administered on 08:46; Admin Dose 1 APPLIC; Start 01/27/17 at 09:00 [facility]isc[facility] This patient carrion... PRN PRN XX WOUND CARE; Start 01/27/17 at 11:00 Sodium Hypochlorite (Dakin'S (1/4 Strength)) 1 applic DAILY IRR ; Start at 21:00 DESI HOFFMANN MD Jan 27, 2017 20:46
[2017-01-28] VITALS (68 sets, daily range): BP systolic 70–121; BP diastolic 45–86; PULSE 63–82; RESP 13–39
[2017-01-28] MEDS: SOD CHLORIDE 0.45% 1,000 ML IV SCH ×3 (00:36→13:07)
[2017-01-28] MEDS: PANTOPRAZOLE IV 80 MG in SOD CHLORIDE 0.9% 100 ML IV SCH ×3 (02:00→22:44)
[2017-01-28 06:41] LABS: ADD SCAN DIFF NO
[2017-01-28 06:42] LABS: HEMOGLOBIN 4.7 g/dl (14.0-18.0)
[2017-01-28 06:55] LABS: ABNORMAL IP MESSAGE 1; EOSINOPHILS # 0.2 10^3/ul (0.0-0.5); EOSINOPHILS % 6.5 % (0.0-7.0); HEMOGLOBIN 7.7 g/dl (14.0-18.0); LYMPHOCYTES # 0.1 10^3/ul (0.8-2.9); LYMPHOCYTES % 3.1 % (15.0-51.0); MEAN CORPUSCULAR HEMOGLOBIN 30.3 pg (29.0-33.0); MEAN CORPUSCULAR HGB CONC 30.8 g/dl (32.0-37.0); MEAN CORPUSCULAR VOLUME 98.4 fl (82.0-101.0); MEAN PLATELET VOLUME 13.3 fl (7.4-10.4); MONOCYTE # 0.2 10^3/ul (0.3-0.9); MONOCYTES % 4.5 % (0.0-11.0); NEUTROPHILS % 85.3 % (39.0-77.0); PLATELET COUNT 116 10^3/UL (140-415); RED BLOOD COUNT 2.54 10^6/ul (4.70-6.10); WHITE BLOOD COUNT 3.5 10^3/ul (4.8-10.8)
[2017-01-28 07:25] LABS: CALCIUM 7.6 mg/dl (8.4-10.2); CREATININE 2.63 mg/dl (0.61-1.24); MAGNESIUM 2.5 mg/dl (1.7-2.5); PHOSPHORUS 6.7 mg/dl (2.5-4.9); POTASSIUM 3.5 mmol/L (3.5-5.1)
[2017-01-28] MEDS: LINEZOLID 600 MG/D5W (PMX) 300 ML IVPB SCH ×2 (08:48→21:43)
[2017-01-28] MEDS: HYDROGEN PEROXIDE 118 ML TOP SCH ×2 (08:48→21:30)
[2017-01-28] MEDS: COLLAGENASE 30 GM TUBE TOP SCH (08:48)
[2017-01-28] MEDS: MEROPENEM 1 GM/100 ML (PMX) 100 ML IVPB SCH ×2 (08:50→21:30)
--- NOTE | 2017-01-28 10:12 | PN ---
DATE: 01/28/2017 SUBJECTIVE: The patient is critically ill but stable. He is currently receiving IV fluids, tolerating well. The patient seemed to have hematuria, serosanguinous but resolving. No further blood clots noted. No other acute events noted. No hemoptysis, hematemesis, hematochezia. PHYSICAL EXAMINATION: VITAL SIGNS: Blood pressure is 89/52, respirations 25, pulse 70, temperature 97.0. HEENT: Head is normocephalic. NECK: Supple. HEART: Regular rate. LUNGS: Show diminished breath sounds at the base. ABDOMEN: Soft, nontender to palpation, no rebound or guarding. EXTREMITIES: Negative for clubbing, cyanosis, trace edema. DERMATOLOGIC: No rashes. MUSCULOSKELETAL: No joint effusion. NEUROLOGIC: no change MEDICATIONS: The patient's medication reviewed. LABORATORY DATA: Shows sodium 144, potassium 3.5, chloride 113, ____ phosphorous 6.7, bicarb 3.5, hemoglobin ____ . The patient's blood cultures have been reviewed. ____ positive. Urine culture is positive. ASSESSMENT AND PLAN 1. 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 Etiology is acute kidney injury secondary to acute tubular necrosis and obstructive uropathy. The patient was seen by urology. with possible The patient's renal function test is improving. Will continue current treatment plan. Supportive care. Renally dose all meds. Continue hydration . 2. Gross hematuria. Continue current medical management. Follow up with urology. 3. Hyponatremia improving. Continue free water flushes. 4. Hyperkalemia 5. anemia. Etiology is multifactorial. Continue to monitor H and H levels. 7. nutrition. Continue free water flushes. Continue TPN. 8. gerd Continue PPI. 9. Mineral bone disorder. Continue to monitor calcium and phosphorous levels. 10. Diabetes. Continue to Accu-Cheks and sliding scale. 11. AFib. Continue medical management. Please note, I spent over 35 minutes critical care time with this patient. Dictated By: JACOB GOMEZ/LESLY Conf#: [id number] DID#: [id number] MTDD
[2017-01-28] MEDS ORDERED: LIDOCAINE 1% (MPF) 5 ML VIAL SC ONE (10:30)
[2017-01-28] MEDS ORDERED: NORepinephrine 8MG/250 ML (PMX 250 ML ONE (10:52)
--- NOTE | 2017-01-28 11:20 | PN ---
Date/Time of Note Date/Time of Note DATE: 01/28/17 TIME: 11:16 Assessment/Plan VTE Prophylaxis VTE Prophylaxis Intervention: other Lines/Catheters IV Catheter Type (from Nrs): Peripheral IV Urinary Cath still in place: Yes Reason Cath still needed: other (indicate) Assessment/Plan Chief Complaint/Hosp Course ASSESSMENT AND PLAN: 1. Sepsis. continue ICU care, continue aggressive IV fluid hydration, IV antibiotics and Tylenol p.r.n. pain, fevers, antiemetics and pain control medications. Followup labs in the morning. IV fluids. Infectious disease doctor has been consulted. Blood culture was found to be positive for Proteus mirabilis and staph aureus 2. Hyperkalemia, likely secondary to acute renal insufficiency, follow up renal recommendations, patient did receive Kayexalate, calcium gluconate, dextrose, insulin earlier. Monitor basic metabolic panel every morning. 3. Severe hypernatremia, again, free water deficit of about 4 to 4.5 liters. Follow up renal recommendations as far as hypotonic IV fluids, may need to give the patient free water as well. 4. Acute on chronic renal failure, again, severely elevated BUN and creatinine levels. Continue aggressive IV fluids. Follow up urine electrolytes, aggressive IV fluid hydration. If there is not any meaningful recovery of renal function including decreased urine output, may need to consider hemodialysis. 5. History of gastrointestinal bleed in the past and severe anemia, status post PRBC transfusion. The patient is on Protonix drip. Follow up CBC levels daily. 6. Ventilator dependent respiratory failure. Again, will get pulmonary consult. Continue mechanical ventilation as well. 7. History of Pseudomonas UTI and get ID consult. Continue broad spectrum antibiotics. 8. Anemia, status post transfusion of packed red blood cells, continue to monitor 9. History of chronic encephalopathy. Continue to monitor. 10. Gastrointestinal prophylaxis, proton pump inhibitors. 11. Deep venous thrombosis prophylaxis, sequential compression devices. Problems: Subjective 24 Hr Interval Summary Free Text/Dictation No acute changes overnight Patient remains with limited response to pain or verbal stimuli Found to be mildly hypotensive despite of aggressive IV fluid and antibiotics Exam/Review of Systems Vital Signs Vitals Vital Signs Date Time Temp Pulse Resp B/P Pulse Ox O2 Delivery O2 Flow Rate FiO2 01/28/17 10:00 68 18 84/56 100 Mechanical Ventilator 01/28/17 09:15 30 01/28/17 08:00 98.0 Intake and Output 01/27/17 01/27/17 01/28/17 15:00 23:00 07:00 Intake Total 1780 ml 560 ml 2610 ml Output Total 950 ml 710 ml 955 ml Balance 830 ml -150 ml 1655 ml Exam General: The patient is frail, does not follow any commands HEENT: Posterior cephalic with evidence of decubitus. The pupils are equal and round . Neck: Supple Chest: Normal Lungs: Creased breath sounds bilaterally Heart: Normal S1-S2, A. fib rate controlled Abdomen: Soft , nontender, nondistended , bowel sounds are present. PEG tube in place Extremities: +1 edema no cyanosis evidence of stage IV sacral decubitus and multiple decubitus ulcer bilateral lower extremities Neurologic: Arousable with pain stimuli Results Result Diagram: 01/28/1731 01/28/1731 Results 24 hrs Laboratory Tests Test 01/27/17 14:30 01/28/17 05:31 Sodium Level 147 H 144 Potassium Level 3.4 L 3.5 Chloride Level 115 H 113 H Carbon Dioxide Level 22 20 L Anion Gap 13 15 Blood Urea Nitrogen 197 H 173 H Creatinine 2.90 H 2.63 H Glucose Level 111 85 Calcium Level 7.8 L 7.6 L White Blood Count 3.5 L Red Blood Count 2.54 L Hemoglobin 7.7 L Hematocrit 25.0 L Mean Corpuscular Volume 98.4 Mean Corpuscular Hemoglobin 30.3 Mean Corpuscular Hemoglobin Concent 30.8 L Red Cell Distribution Width 17.0 H Platelet Count 116 L Mean Platelet Volume 13.3 H Neutrophils % 85.3 H Lymphocytes % 3.1 L Monocytes % 4.5 Eosinophils % 6.5 Basophils % 0.0 Nucleated Red Blood Cells % 0.0 Neutrophils # 3.0 Lymphocytes # 0.1 L Monocytes # 0.2 L Eosinophils # 0.2 Basophils # 0.0 Nucleated Red Blood Cells # 0.0 Phosphorus Level 6.7 H Magnesium Level 2.5 Medications Medications Current Medications Ondansetron HCl (Zofran Inj) 4 mg Q6H PRN IV NAUSEA AND/OR VOMITING; Start 07/04 at 00:00 Acetaminophen (Tylenol Liquid) 650 mg Q6H PRN PO PAIN LEVEL 1-3 OR FEVER; Start 01/26/17 at 00:00 Morphine Sulfate (morphine) 2 mg Q4H PRN IV PAIN LEVEL 7-10; Start 01/26/17 at 00:00 Lorazepam 1 mg 1 mg Q2H PRN IV ANXIETY; Start 01/26/17 at 00:00 Linezolid 300 ml @ 300 mls/hr Q12 IVPB Last administered on 01/28/17 08:48; Admin Dose 300 MLS/HR; Start 01/26/17 at 00:00 Meropenem 100 ml @ 200 mls/hr Q12 IVPB Last administered on 01/28/17 08:50; Admin Dose 200 MLS/HR; Start 01/26/17 at 09:00 Pantoprazole 80 mg/Sodium Chloride 100 ml @ 10 mls/hr Q10H IV Last administered on 01/28/17 02:00; Admin Dose 10 MLS/HR; Start 01/26/17 at 06:00 Norepinephrine/ Dextrose (Levophed/D5W) 500 ml @ 1.87 mls/hr TITRATE IV ; Start 01/26/17 at 06:00 Collagenase 1 applic 1 applic DAILY TOP Last administered on 01/28/17 08:48; Admin Dose 1 APPLIC; Start 01/26/17 at 09:00 Sodium Chloride (1/2 NS) 1,000 ml @ 150 mls/hr Q6H40M IV Last administered on 01/28/17 06:41; Admin Dose 150 MLS/HR; Start 01/26/17 at 08:00 Hydrogen Peroxide (Hydrogen Peroxide) 1 applic QHS TOP Last administered on 20:14; Admin Dose 1 APPLIC; Start 01/26/17 at 21:00 Hydrogen Peroxide (Hydrogen Peroxide) 1 applic DAILY TOP Last administered on 08:48; Admin Dose 1 APPLIC; Start 01/27/17 at 09:00 Miscellaneous Information (Pending [facility] Order For Wound Care) This patient carrion... PRN PRN XX WOUND CARE; Start 01/27/17 at 11:00 Sodium Hypochlorite (Dakin'S (1/4 Strength)) 1 applic DAILY IRR ; Start at 21:00 IAM GÓMEZ MD Jan 28, 2017 11:20
--- NOTE | 2017-01-28 11:41 | CONS ---
Date/Time of Note Date/Time of Note DATE: 01/28/17 TIME: 11:38 Assessment/Plan Assessment/Plan Additional Assessment/Plan Ventilator setting; AC of 16, tidal volume 500, PEEP of 5, 30% FiO2. Patient currently on Protonix drip via protocol. Assessment recommendations; 1. Patient admitted for severe hematuria status post multiple packed RBC transfusion. 2. Possible underlying renal malignancy. 3. Chronic respiratory failure, status post severe anoxic brain injury. Patient remains ventilator dependent. 4. Bilateral pneumonia. 5. Anemia. 6. Thrombocytopenia. 7. Chronic renal insufficiency. Continue current supportive care. Prognosis is poor. Consultation Date/Type/Reason Admit Date/Time Jan 26, 2017 at 01:35 Type of Consultation: Pulmonary/critical care 24 HR Interval Summary Free Text/Dictation Patient condition remains stable. No further overt bleeding noted from Lopez catheter. Patient has remained hemodynamically stable. Remains awake but unresponsive due to anoxic brain injury in the past. General exam; elderly male, on ventilator via tracheostomy currently in no distress. Exam/Review of Systems Vital Signs Vitals Vital Signs Date Time Temp Pulse Resp B/P Pulse Ox O2 Delivery O2 Flow Rate FiO2 01/28/17 10:00 68 18 84/56 100 Mechanical Ventilator 01/28/17 09:15 30 01/28/17 08:00 98.0 Intake and Output 01/27/17 01/27/17 01/28/17 15:00 23:00 07:00 Intake Total 1780 ml 560 ml 2610 ml Output Total 950 ml 710 ml 955 ml Balance 830 ml -150 ml 1655 ml Exam HEENT examination; supple neck, no JVD. No lymphadenopathy. Midline trachea. No thyromegaly. Tracheostomy placed with clean insertion site. Chest examination; upper lobes are clear to auscultation, diminished breath sounds in lower lobes bilaterally. S1-S2 audible, no murmurs. Regular rhythm. Abdomen examination; soft, no organomegaly. G-tube in place. Bowel sounds audible. Extremity examination; no peripheral edema. POULTRY SERVICE TECHNICIAN examination; she is awake but does not follow any commands. Results Result Diagram: 01/28/17 0531 01/28/17 0531 Results 24 hrs Laboratory Tests Test 01/27/17 14:30 01/28/17 05:31 Sodium Level 147 H 144 Potassium Level 3.4 L 3.5 Chloride Level 115 H 113 H Carbon Dioxide Level 22 20 L Anion Gap 13 15 Blood Urea Nitrogen 197 H 173 H Creatinine 2.90 H 2.63 H Glucose Level 111 85 Calcium Level 7.8 L 7.6 L White Blood Count 3.5 L Red Blood Count 2.54 L Hemoglobin 7.7 L Hematocrit 25.0 L Mean Corpuscular Volume 98.4 Mean Corpuscular Hemoglobin 30.3 Mean Corpuscular Hemoglobin Concent 30.8 L Red Cell Distribution Width 17.0 H Platelet Count 116 L Mean Platelet Volume 13.3 H Neutrophils % 85.3 H Lymphocytes % 3.1 L Monocytes % 4.5 Eosinophils % 6.5 Basophils % 0.0 Nucleated Red Blood Cells % 0.0 Neutrophils # 3.0 Lymphocytes # 0.1 L Monocytes # 0.2 L Eosinophils # 0.2 Basophils # 0.0 Nucleated Red Blood Cells # 0.0 Phosphorus Level 6.7 H Magnesium Level 2.5 Medications Medications Current Medications Ondansetron HCl (Zofran Inj) 4 mg Q6H PRN IV NAUSEA AND/OR VOMITING; Start 07/04 at 00:00 Acetaminophen (Tylenol Liquid) 650 mg Q6H PRN PO PAIN LEVEL 1-3 OR FEVER; Start 01/26/17 at 00:00 Morphine Sulfate (morphine) 2 mg Q4H PRN IV PAIN LEVEL 7-10; Start 01/26/17 at 00:00 Lorazepam 1 mg 1 mg Q2H PRN IV ANXIETY; Start 01/26/17 at 00:00 Linezolid 300 ml @ 300 mls/hr Q12 IVPB Last administered on 01/28/17 08:48; Admin Dose 300 MLS/HR; Start 01/26/17 at 00:00 Meropenem 100 ml @ 200 mls/hr Q12 IVPB Last administered on 01/28/17 08:50; Admin Dose 200 MLS/HR; Start 01/26/17 at 09:00 Pantoprazole 80 mg/Sodium Chloride 100 ml @ 10 mls/hr Q10H IV Last administered on 01/28/17 02:00; Admin Dose 10 MLS/HR; Start 01/26/17 at 06:00 Norepinephrine/ Dextrose (Levophed/D5W) 500 ml @ 1.87 mls/hr TITRATE IV ; Start 01/26/17 at 06:00 Collagenase 1 applic 1 applic DAILY TOP Last administered on 01/28/17 08:48; Admin Dose 1 APPLIC; Start 01/26/17 at 09:00 Sodium Chloride (1/2 NS) 1,000 ml @ 150 mls/hr Q6H40M IV Last administered on 01/28/17 06:41; Admin Dose 150 MLS/HR; Start 01/26/17 at 08:00 Hydrogen Peroxide (Hydrogen Peroxide) 1 applic QHS TOP Last administered on 20:14; Admin Dose 1 APPLIC; Start 01/26/17 at 21:00 Hydrogen Peroxide (Hydrogen Peroxide) 1 applic DAILY TOP Last administered on 08:48; Admin Dose 1 APPLIC; Start 01/27/17 at 09:00 Miscellaneous Information (Pending [facility] Order For Wound Care) This patient carrion... PRN PRN XX WOUND CARE; Start 01/27/17 at 11:00 Sodium Hypochlorite (Dakin'S (1/4 Strength)) 1 applic DAILY IRR ; Start at 21:00 AARON HUFF Jan 28, 2017 11:41
--- NOTE | 2017-01-28 11:51 | RADRPT ---
PROCEDURE: Renal US. CLINICAL INDICATION: Renal masses. Sepsis. TECHNIQUE: Multiple sonographic images of the kidneys and urinary bladder were obtained. The imag es were reviewed on a PACS workstation. COMPARISON: Renal ultrasound dated 01/26/2017. FINDINGS: The right kidney measures 12.8 cm. The left kidney measures 12.9 cm. There is a solid mass in the upper right kidney measuring 2.8 x 2.4 cm. A cyst is present inferiorl y in the left kidney measuring 2.3 x 3.0 cm. There is mild bilateral hydronephrosis. There are multiple bilateral shadowing renal calculi. Renal parenchymal thickness is normal bilaterally. Echogenicity is normal bilaterally. The perirenal regions are normal with no fluid collection or mass. A Lopez catheter is present in the urinary bladder. IMPRESSION: 1. Solid mass in the upper right kidney measuring 2.8 x 2.4 cm. 2. Benign cyst in the lower left kidney measuring 2.3 x 3.0 cm. 3. Mild bilateral hydronephrosis. 4. Multiple bilateral shadowing renal calculi. 5. Lopez catheter in the bladder. RPTAT: QQ .Gautam Myers MD, Date Time Electronically viewed and signed by .Gautam Myers MD, MD on 01/28/2017 11:50 .R/
--- NOTE | 2017-01-28 12:38 | PN ---
DATE: 01/28/2017 SUBJECTIVE: The patient is less responsive with low blood pressure. Plan to start Levophed drip. No fevers. VITAL SIGNS: Temperature 98, pulse 68, respirations 18, blood pressure 84/56, saturation 100 on freddie t. WBC 3.5, H and H 7.7 and 25, platelets 116, neutrophils 85.3, no bands. BUN 173, creatinine 2.63. MICROBIOLOGY: Blood culture growing Proteus mirabilis and coagulase-negative staph species. Urine culture growing Proteus mirabilis. Endotracheal aspirate growing gram-negative rods. INDWELLINGS: Trach, PEG, Lopez. ANTIMICROBIALS: 1. Meropenem. 2. Zyvox. PHYSICAL EXAMINATION: GENERAL: This is a chronically ill-appearing, elderly man, who is noncommunicative, in no distress. HEENT: Head atraumatic, normocephalic. Sclerae anicteric. Buccal mucosa dry. NECK: Supple. Tracheostomy present. CHEST: Rise symmetrical. Breath sounds diminished. HEART: S1, S2. ABDOMEN: Soft. Bowel tones hypoactive. EXTREMITIES: With trace edema. SKIN: With multiple pressure sores and unstageable sacral decubitus. ASSESSMENT: 1. Severe sepsis with shock. 2. Urinary tract infection with bacteremia. 3. Unstageable sacral decubitus. 4. Acute renal failure. 5. Bilateral hydronephrosis. 6. Chronic encephalopathy. 7. Questionable urothelial malignancy of the bladder, Urology on case. PLAN: The patient remains hemodynamically unstable. We will continue him on current antimicrobials . Repeat blood cultures and follow recommendations of consultants. Overall prognosis poor. Dictated By: CHRISS RIVAS ASSEMBLY LINE SUPERVISOR for BETHANY CASTILLO/LESLY Conf#: [id number] DID#: [id number]
[2017-01-28 14:59] LABS: CALCIUM 7.8 mg/dl (8.4-10.2); CREATININE 2.75 mg/dl (0.61-1.24); POTASSIUM 3.5 mmol/L (3.5-5.1)
[2017-01-28 16:15] LABS: MICROALBUMIN 88.3 mg/dL
--- NOTE | 2017-01-28 20:18 | RADRPT ---
PROCEDURE: Ultrasound proximal upper extremity for PICC placement CLINICAL INDICATION: PICC placement TECHNIQUE: Sonographic evaluation of the proximal left upper extremity vessels was performed utilizi ng a high-frequency linear transducer. COMPARISON: None available FINDINGS: Limited evaluation of the proximal upper extremity for vascular access for PICC placement. Grossly, no abnormality is seen. IMPRESSION: 1. Unremarkable limited proximal left upper extremity ultrasound for PICC placement. RPTAT: HH .Jp Mercado MD, MD Date Time Electronically viewed and signed by .Jp Mercado MD, MD on 01/28/2017 20:18 .R/
--- NOTE | 2017-01-28 20:18 | RADRPT ---
PROCEDURE: XR Chest. CLINICAL INDICATION: PICC line placement TECHNIQUE: Single frontal chest x-ray. COMPARISON: 01/27/2017 FINDINGS: Left-sided PICC line tip is in the SVC. Tracheostomy tube remains in place. Hazy bibasilar pulmona ry opacities are grossly unchanged. No pneumothorax is identified. Cardiomediastinal silhouette is stable in appearance. The osseous structures are unremarkable. IMPRESSION: 1. Left-sided PICC line in good position. 2. Stable hazy bibasilar pulmonary opacities. RPTAT: HH .Jp Mercado MD, Date Time Electronically viewed and signed by .Jp Mercado MD, on 01/28/2017 20:17 .R/
[2017-01-28] MEDS: SODIUM HYPOCHLORITE 0.125% 473 ML BTL IRR SCH (21:30)
[2017-01-29] VITALS (100 sets, daily range): BP systolic 82–125; BP diastolic 44–75; PULSE 60–79; RESP 12–31
[2017-01-29] MEDS: SOD CHLORIDE 0.45% 1,000 ML IV SCH (03:00)
[2017-01-29 03:28] LABS: CALCIUM 7.9 mg/dl (8.4-10.2); CREATININE 2.69 mg/dl (0.61-1.24); POTASSIUM 3.4 mmol/L (3.5-5.1)
[2017-01-29 06:25] LABS: ADD SCAN DIFF NO
[2017-01-29 06:33] LABS: ABNORMAL IP MESSAGE 1; BASOPHILS % 0.2 % (0.0-2.0); EOSINOPHILS # 0.3 10^3/ul (0.0-0.5); EOSINOPHILS % 5.7 % (0.0-7.0); HEMATOCRIT 22.2 % (42.0-52.0); LYMPHOCYTES # 0.2 10^3/ul (0.8-2.9); LYMPHOCYTES % 3.8 % (15.0-51.0); MEAN CORPUSCULAR HGB CONC 31.5 g/dl (32.0-37.0); MEAN CORPUSCULAR VOLUME 98.2 fl (82.0-101.0); MEAN PLATELET VOLUME 13.1 fl (7.4-10.4); MONOCYTE # 0.2 10^3/ul (0.3-0.9); MONOCYTES % 4.6 % (0.0-11.0); NEUTROPHIL # 4.2 10^3/ul (1.6-7.5); NEUTROPHILS % 85.1 % (39.0-77.0); PLATELET COUNT 140 10^3/UL (140-415); RED BLOOD COUNT 2.26 10^6/ul (4.70-6.10); RED CELL DISTRIBUTION WIDTH 16.9 % (11.5-14.5)
[2017-01-29 07:08] LABS: CALCIUM 7.8 mg/dl (8.4-10.2); CREATININE 2.49 mg/dl (0.61-1.24); MAGNESIUM 2.3 mg/dl (1.7-2.5); PHOSPHORUS 7.7 mg/dl (2.5-4.9); POTASSIUM 3.5 mmol/L (3.5-5.1)
[2017-01-29] MEDS ORDERED: POTASSIUM CHLORIDE 250 ML IVPB ONE (07:30)
[2017-01-29] MEDS: PANTOPRAZOLE IV 80 MG in SOD CHLORIDE 0.9% 100 ML IV SCH ×3 (07:45→22:54)
[2017-01-29] MEDS: SOD CHLORIDE 0.9% 1,000 ML IV SCH (07:46)
[2017-01-29] MEDS: LINEZOLID 600 MG/D5W (PMX) 300 ML IVPB SCH ×2 (08:34→21:27)
[2017-01-29] MEDS: MEROPENEM 1 GM/100 ML (PMX) 100 ML IVPB SCH ×2 (08:34→21:27)
[2017-01-29] MEDS: SODIUM HYPOCHLORITE 0.125% 473 ML BTL IRR SCH (08:36)
[2017-01-29] MEDS: HYDROGEN PEROXIDE 118 ML TOP SCH ×2 (08:36→21:27)
[2017-01-29] MEDS: COLLAGENASE 30 GM TUBE TOP SCH (08:36)
[2017-01-29 08:37] LABS: AADO2 Arterial 82.8 mmHg (7.0-24.0); Allen Test ACCEPTAB; Arterial Base Excess -7.2 mmol/L (-3.0-3); Arterial COHb 0.3 % (0.0-3.0); Arterial Fraction of Oxyhgb 95.8 % (93.0-99.0); Arterial MetHb 0.8 % (0.0-1.5); Arterial Total Hemglobin 7.4 g/dl (12.0-18.0); MODE VENT - AC
[2017-01-29] MEDS ORDERED: SOD CHLORIDE 0.9% 250 ML IV* ONE (08:40)
--- NOTE | 2017-01-29 10:18 | CONS ---
Date/Time of Note Date/Time of Note DATE: 01/29/17 TIME: 10:16 Assessment/Plan Assessment/Plan Additional Assessment/Plan Ventilator setting; AC of 16, tidal volume 500, PEEP of 5, 30% FiO2. Next Patient currently on Levophed at 2 mics per minute. Assessment recommendations; 1. Patient admitted for pneumonia and sepsis. Currently on appropriate antibiotic regimen. 2. Severe hematuria causing severe anemia, likely underlying renal malignancy. 3. 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 4. Chronic renal insufficiency. 5. Thrombocytopenia. Continue current treatment. Obtain follow-up chest x-ray. Prognosis remains poor. Consultation Date/Type/Reason Admit Date/Time Jan 26, 2017 at 01:35 Type of Consultation: Pulmonary/critical care 24 HR Interval Summary Free Text/Dictation Patient condition remains critical. Still requiring Levophed although at 2 mics per minute now. Currently on a tapering dose. Patient remains unresponsive due to severe anoxic brain injury. Also remains ventilator dependent via tracheostomy. No untoward events reported. General exam; elderly male, on ventilator via tracheostomy unresponsive. Currently in no distress. Exam/Review of Systems Vital Signs Vitals Vital Signs Date Time Temp Pulse Resp B/P Pulse Ox O2 Delivery O2 Flow Rate FiO2 01/29/17 09:15 73 21 96/56 99 Mechanical Ventilator 01/29/17 08:00 30 01/29/17 07:00 97.0 Intake and Output 01/28/17 01/28/17 01/29/17 15:00 23:00 07:00 Intake Total 1001.87 ml 1508.75 ml 1565.00 ml Output Total 615 ml 925 ml 895 ml Balance 386.87 ml 583.75 ml 670.00 ml Exam HEENT examination; supple neck, no JVD. No lymphadenopathy. Midline trachea. No thyromegaly. Tracheostomy in place with clean insertion site. Patient is edentulous. Neck Chest examination; clear to ulceration. S1-S2 audible, no murmurs. Regular rhythm. Abdomen examination; soft, no organomegaly. G-tube in place. Bowel sounds audible. Extremity examination; no peripheral edema. FOLDER MACHINE examination; patient remains unresponsive. Results Result Diagram: 01/29/17 0440 01/29/17 0440 Results 24 hrs Laboratory Tests Test 01/28/17 14:28 01/29/17 02:00 01/29/17 04:40 01/29/17 08:00 Sodium Level 141 144 142 Potassium Level 3.5 3.4 L 3.5 Chloride Level 112 H 114 H 114 H Carbon Dioxide Level 19 L 19 L 18 L Anion Gap 14 14 14 Blood Urea Nitrogen 159 H 145 H 142 H Creatinine 2.75 H 2.69 H 2.49 H Glucose Level 101 102 87 Calcium Level 7.8 L 7.9 L 7.8 L White Blood Count 5.0 # Red Blood Count 2.26 L Hemoglobin 7.0 L Hematocrit 22.2 L Mean Corpuscular Volume 98.2 Mean Corpuscular Hemoglobin 31.0 Mean Corpuscular Hemoglobin Concent 31.5 L Red Cell Distribution Width 16.9 H Platelet Count 140 # Mean Platelet Volume 13.1 H Neutrophils % 85.1 H Lymphocytes % 3.8 L Monocytes % 4.6 Eosinophils % 5.7 Basophils % 0.2 Nucleated Red Blood Cells % 0.0 Neutrophils # 4.2 Lymphocytes # 0.2 L Monocytes # 0.2 L Eosinophils # 0.3 Basophils # 0.0 Nucleated Red Blood Cells # 0.0 Phosphorus Level 7.7 H Magnesium Level 2.3 Blood Gas Specimen Source Blood arterial Arterial Blood Date Drawn 01/29/2017 7:30:22 AM Arterial Blood pH (Temp corrected) 7.440 Arterial Blood pCO2 (Temp correct) 24.1 L Arterial Blood pO2 (Temp corrected) 102.8 H Arterial Blood HCO3 16.0 L Arterial Blood Base Excess -7.2 L Arterial Blood Oxygen Saturation 96.9 Pedro Test ACCEPTAB Arterial Blood Gas Puncture Site Right Radial Arterial Blood Carboxyhemoglobin 0.3 Arterial Blood Methemoglobin 0.8 Blood Gas A-a O2 Differential 82.8 H Oxyhemoglobin Percent 95.8 Total Hemoglobin 7.4 L Blood Gas Temperature 37.0 Blood Gas Respiration Rate 16.0 Blood Gas Actual Respiration Rate 25 Blood Gas Modality VENT - AC FiO2 30.0 Blood Gas Tidal Volume 500.0 Blood Gas Low PEEP Setting 5.0 Blood Gas Notified Whom JLD Blood Gas Notified Time 01/29/2017 7:55:09 AM Medications Medications Current Medications Ondansetron HCl (Zofran Inj) 4 mg Q6H PRN IV NAUSEA AND/OR VOMITING; Start 07/04 at 00:00 Acetaminophen (Tylenol Liquid) 650 mg Q6H PRN PO PAIN LEVEL 1-3 OR FEVER; Start 01/26/17 at 00:00 Morphine Sulfate (morphine) 2 mg Q4H PRN IV PAIN LEVEL 7-10 Last administered on 01/29/17 03:41; Admin Dose 2 MG; Start 01/26/17 at 00:00 Lorazepam 1 mg 1 mg Q2H PRN IV ANXIETY; Start 01/26/17 at 00:00 Linezolid 300 ml @ 300 mls/hr Q12 IVPB Last administered on 01/29/17 08:34; Admin Dose 300 MLS/HR; Start 01/26/17 at 00:00 Meropenem 100 ml @ 200 mls/hr Q12 IVPB Last administered on 01/29/17 08:34; Admin Dose 200 MLS/HR; Start 01/26/17 at 09:00 Pantoprazole 80 mg/Sodium Chloride 100 ml @ 10 mls/hr Q10H IV Last administered on 01/29/17 07:45; Admin Dose 10 MLS/HR; Start 01/26/17 at 06:00 Norepinephrine/ Dextrose (Levophed/D5W) 500 ml @ 1.87 mls/hr TITRATE IV Last administered on 01/28/17 12:38; Admin Dose 9.37 MLS/HR; Start 01/26/17 at 06:00 Collagenase (Santyl) 1 applic DAILY TOP Last administered on 01/29/17 08:36; Admin Dose 1 APPLIC; Start 01/26/17 at 09:00 Hydrogen Peroxide (Hydrogen Peroxide) 1 applic QHS TOP Last administered on 21:30; Admin Dose 1 APPLIC; Start 01/26/17 at 21:00 Hydrogen Peroxide (Hydrogen Peroxide) 1 applic DAILY TOP Last administered on 08:36; Admin Dose 1 APPLIC; Start 01/27/17 at 09:00 Miscellaneous Information (Pending Santyl Order For Wound Care) This patient carrion... PRN PRN XX WOUND CARE; Start 01/27/17 at 11:00 Sodium Hypochlorite 1 applic 1 applic DAILY IRR Last administered on 01/29/17 08:36; Admin Dose 1 APPLIC; Start 01/28/17 at 21:00 Potassium Chloride 250 ml @ 62.5 mls/hr ONCE ONCE IVPB Last administered on 07:45; Admin Dose 62.5 MLS/HR; Start 01/29/17 at 07:30; Stop 01/29/17 at 11:29 Sodium Chloride (NS) 1,000 ml @ 75 mls/hr [id number] IV Last administered on 01/29 07:46; Admin Dose 75 MLS/HR; Start 01/29/17 at 07:30 AARON HUFF Jan 29, 2017 10:18
--- NOTE | 2017-01-29 10:35 | PN ---
DATE: 01/29/2017 HOSPITALIST PROGRESS NOTE SUBJECTIVE DATA: The patient remains on low dose pressors for blood pressure control. Remains afebrile. OBJECTIVE DATA: VITAL SIGNS: Temperature 97.0, pulse rate 70, respiratory rate 21, blood pressure 96/56, oxygen saturation 98% on 30% FIO2 via mechanical ventilator. GENERAL: This is an elderly 71-year-old male patient lying in bed, mechanically ventilated, tracheostomy to ventilator. HEENT: Head normocephalic and atraumatic. The patient has multiple wounds on his scalp. Eyes: Anicteric sclerae. Conjunctivae clear. ENT: Nasal septum is midline. Oral mucosa is dry. Poor dentition. NECK: Tracheostomy in midline. RESPIRATORY: Bilaterally diminished breath sounds. Mechanically ventilated. CARDIAC: Regular rate and rhythm. S1 and S2 heard. ABDOMEN: Slightly distended. Left upper quadrant G-tube in place. GENITOURINARY: The patient has a Lopez catheter in place. No gross hematuria. EXTREMITIES: No cyanosis, no clubbing. Bilateral lower extremity pedal edema. Peripheral pulses are palpable. NEUROLOGIC: The patient is obtunded. Does not track movements. Moans with pain. SKIN: Multiple pressure ulcers. LABORATORY AND DIAGNOSTIC DATA: WBC 5.0, hemoglobin 7.0, hematocrit 22.2, platelet count 140. Sodium 142, potassium 3.5, chloride 114, carbon dioxide 18 , anion gap 14, BUN 142, creatinine 2.4, glucose 89, calcium 7.8, phosphorus 7.7 , magnesium 2.3. ASSESSMENT AND PLAN: 1. Sepsis with underlying septic shock secondary to healthcare-associated pneumonia and urinary tract infection along with bacteremia. Continue antibiotics as per infectious diseases. Titrate vasopressors to obtain optimal blood pressure control. 2. Ventilator-dependent respiratory failure. Continue mechanical ventilator management as per pulmonology. 3. Acute on chronic kidney injury. The patient is being followed by nephrology. Use nephrotoxic drugs with caution. 4. Normocytic normochromic anemia requiring blood transfusion. Etiology unclear. Stool for OB x1 negative. Status post multiple blood transfusions. Continue Protonix drip. 5. Gross hematuria. Etiology unclear. This has been resolving. Status post evaluation by urology. 6. Hypernatremia. Most probably secondary to dehydration. Resolved with free water via G-tube. 7. Hyperkalemia, resolved. 8. Dysphagia. Status post percutaneous endoscopic gastrostomy tube. 9. History of atrial fibrillation. Currently in sinus rhythm. The patient is not a candidate for any anticoagulation because of underlying severe anemia. 10. Multiple decubitus wounds. Continue local wound care. 11. Fluid, electrolytes and nutrition. Continue G-tube feedings. 12. Deep venous thrombosis prophylaxis. Bilateral sequential compression devices. 13. Gastrointestinal prophylaxis. On proton pump inhibitors. PLAN: Continue antibiotics as per infectious diseases. Continue pressors for blood pressure support. Transfuse 1 unit of PRBC today. Case discussed with Dr. Silverio. Critical care time: 35 minutes. JULIAN SILVERIO MD AM/NTS Conf#: [id number] DID#: [id number] MTDD
--- NOTE | 2017-01-29 13:30 | PN ---
DATE: 01/29/2017 SUBJECTIVE: ____ is critical on vent support. ____ PHYSICAL EXAMINATION: VITAL SIGNS: Blood pressure is 103/____ , respirations ____, temperature ____ HEENT: Head is normocephalic. Pupils equal, round and reactive to light. HEART: Regular rate. LUNGS: Show diminished breath sounds at the base. ABDOMEN: Soft, nontender to palpation, no rebound or guarding. EXTREMITIES: Negative to clubbing, cyanosis, no edema. DERMATOLOGIC: No rashes. MUSCULOSKELETAL: No joint effusions. NEUROLOGIC: No change in exam. The patient had positive ____ . MEDICATIONS: Reviewed. LABORATORY DATA: Showed sodium 142, potassium 3.5, ___ , BUN 142, creatinine 3.49, ____ , white co unt ____ platelet count was 140. The patient's cultures have been reviewed. ASSESSMENT AND PLAN: 1. Nonoliguric kidney injury on top of CKD stage 4. ____ baseline creatinine of 1.5 and 6.5 mg/dL . Etiology of acute kidney injury is multifactorial secondary to ATN with obstructive uropathy. The patient's CT scan showed evidence of bilateral hydronephrosis. The patient was evaluated by Urology . No plan for intervention at this time. Will continue current treatment care, supportive care and renally dose all meds. The patient's renal function has been improving with supportive care. No nee d for renal placement therapy at this time. Will monitor closely. 2. Gross hematuria. Etiology is ____. Continue to monitor, continue ____ ____ . Follow up with ur ology. 3. Hypernatremia, improved. Continue free water flushes. 4. Acute encephalopathy. Etiology is multifactorial secondary to toxic metabolic uremia. Will cont inue to monitor. 5. Anemia, etiology is multifactorial secondary to chronic kidney disease and possible GI bleed. Wi ll ____ . 6. ____ . Continue to monitor. 7. Septic shock secondary to health care associated pneumonia, urinary tract infection ____ antibiotic regimen, continue pressure support, continue IV hydration, 8. Acute and chronic encephalopathy. Etiology is toxic metabolic. Continue to monitor. 9. Dysphagia status post PEG. ____ . 10. Esophagitis/gastritis. Continue ____ management. 11. Mineral bone disorder. Continue to monitor calcium and phosphorus levels ____ 12. Diabetes. Continue Accu-Chek and sliding scale. 13. ____ continue wound care. Please note I spent over 35 minutes of critical care time with this patient. Dictated By: JACOB GOMEZ/NTS Conf#: [id number] DID#: [id number]
--- NOTE | 2017-01-29 14:15 | PN ---
DATE: 01/29/2017 SUBJECTIVE: No events. The patient is on low dose Levophed, unresponsive, in no distress. No fevers. VITAL SIGNS: Temperature 97.2, pulse 67, respirations 20, blood pressure 112/70 , saturation 99% on vent. WBC 5, H and H 7 and 22.2, platelets 140, neutrophils 85.3, BUN 142, creatinine 2.49. MICROBIOLOGY: Blood cultures growing Staph and Proteus mirabilis. Urine culture grew Proteus mirabilis. Tracheal aspirate growing multidrug resistant Pseudomonas and Klebsiella pneumoniae susceptible to Cipro and Levaquin. INDWELLINGS: Trach, PEG, Lopez, and PICC line placed yesterday. ANTIMICROBIALS: The patient is on Zyvox and meropenem. OBJECTIVE: GENERAL: This is a chronically ill-appearing, elderly man who is in no distress. HEENT: Head atraumatic, normocephalic. Sclerae anicteric. Buccal mucosa dry. NECK: Supple. Tracheostomy present. CHEST: Rise symmetrical. Breath sounds diminished. HEART: S1, S2. ABDOMEN: Soft, bowel tones present. EXTREMITIES: With trace edema. ASSESSMENT: 1. Severe sepsis with shock. 2. Polymicrobial bacteremia secondary #3. 3. Urinary tract infection. 4. Unstageable sacral decubitus. 5. Acute renal failure. 6. Right upper kidney mass suspicious for malignancy. 7. Encephalopathy. PLAN: The patient remains unchanged, hemodynamically unstable. He is being seen by multiple consultants. We are going to add ciprofloxacin to the regimen to cover multi-drug resistant Klebsiella that he is growing in his sputum. Follow repeat blood cultures. Dictated By: CHRISS RIVAS LEAD QUALITY CONTROL TECHNICIAN for BETHANY CASTILLO/LESLY Conf#: [id number] DID#: [id number] MTDD
[2017-01-29] MEDS ORDERED: SOD CHLORIDE 0.9% 100 ML ONE (19:45)
[2017-01-29] MEDS: CIPROFLOXACIN 200 MG/D5W IVPB 100 ML IVPB SCH (21:27)
[2017-01-30] VITALS (57 sets, daily range): BP systolic 87–109; BP diastolic 56–79; PULSE 0–86; RESP 17–32
[2017-01-30] MEDS: SOD CHLORIDE 0.9% 1,000 ML IV SCH ×3 (02:16→16:32)
[2017-01-30 06:27] LABS: ADD SCAN DIFF NO
[2017-01-30 06:40] LABS: ABNORMAL IP MESSAGE 1; HEMATOCRIT 22.7 % (42.0-52.0); MEAN CORPUSCULAR HEMOGLOBIN 30.1 pg (29.0-33.0); MEAN CORPUSCULAR HGB CONC 30.4 g/dl (32.0-37.0); MEAN CORPUSCULAR VOLUME 99.1 fl (82.0-101.0); MEAN PLATELET VOLUME 13.1 fl (7.4-10.4); PLATELET COUNT 99 10^3/UL (140-415); RED BLOOD COUNT 2.29 10^6/ul (4.70-6.10); RED CELL DISTRIBUTION WIDTH 16.7 % (11.5-14.5); WHITE BLOOD COUNT 3.5 10^3/ul (4.8-10.8)
[2017-01-30 06:53] LABS: HEMOGLOBIN 6.9 g/dl (14.0-18.0)
[2017-01-30 07:32] LABS: CALCIUM 7.9 mg/dl (8.4-10.2); CREATININE 2.38 mg/dl (0.61-1.24); MAGNESIUM 2.1 mg/dl (1.7-2.5); PHOSPHORUS 7.3 mg/dl (2.5-4.9); POTASSIUM 3.7 mmol/L (3.5-5.1)
[2017-01-30 07:41] LABS: EOSINOPHILS # 0.2 10^3/ul (0.0-0.5); LYMPHOCYTES # 0.3 10^3/ul (0.8-2.9)
--- NOTE | 2017-01-30 08:23 | PN ---
DATE: 01/30/2017 SUBJECTIVE: The patient remains critically ill, was weaned off pressor support. No other acute rajeev nts noted. No hemoptysis, hematemesis or hematochezia. OBJECTIVE: VITAL SIGNS: Blood pressure is 96/63, respirations 18, pulse 73, temperature 98.6. I's AND O'S: The patient had 3.9 liters in, 2.3 liters out. HEENT: Head is normocephalic. Pupils are reactive to light. NECK: Shows a trach. HEART: Regular rate. LUNGS: Showed diminished breath sounds at the base. ABDOMEN: Soft, nontender to palpation. No rebound or guarding. EXTREMITIES: Negative for clubbing or cyanosis. Trace edema. DERMATOLOGIC: No rashes. MUSCULOSKELETAL: Positive . NEUROLOGIC: No change in exam. MEDICATIONS: Patient's medication were reviewed. LABORATORY DATA: Shows a white count of 3.5, hemoglobin 6.9, hematocrit 22.7, platelet count is 99. Sodium 142, potassium 3.5, chloride 114, BUN 142, creatinine 3.49. ASSESSMENT AND PLAN: 1. Nonoliguric acute kidney injury on top of chronic kidney disease stage 4, with a baseline creati nine around 1.5 to 2.5 mg/dL. Etiology of acute kidney injury is secondary to acute tubular necrosi s and obstructive uropathy. The patient's CT scan showed positive bilateral hydronephrosis. Patien t's renal function has been slowly improving with supportive care. At this point, continue the curr ent treatment plan, renally dose meds, avoid nephrotoxins. Follow up with urology for any further r ecommendations. 2. Gross hematuria. Etiology is unclear, possibly from renal cell mass versus other. Hematuria carrion s improved. Continue flushes, follow up with urology. 3. Hyponatremia. Improved. Continue free water flushes. 4. Acute encephalopathy. Etiology is multifactorial, toxic metabolic secondary to uremia. Continu e to monitor. 5. Anemia. Continue to monitor hemoglobin and hematocrit levels. The patient may require a blood transfusion. 6. Sepsis. Status post shock secondary to healthcare-associated pneumonia and urinary tract infect ion. Continue the current antibiotic regimen. 7. Acute on chronic encephalopathy. Etiology is toxic metabolic. 8. Dysphagia. Status post PEG. Continue tube feeding. 9. Esophagitis and gastritis. Continue PPI. 10. Mineral bone disorder. Continue to monitor calcium and phosphorus levels. 11. Diabetes. Continue Accu-Cheks and insulin sliding scale. 12. Decubitus wounds. Continue wound care. Please note, I spent over 35 minutes of critical care time with this patient. Dictated By: JACOB LOVING DO NR/NTS Conf#: [id number] DID#: [id number]
--- NOTE | 2017-01-30 08:58 | PN ---
Date/Time of Note Date/Time of Note DATE: 01/30/17 TIME: 08:58 Assessment/Plan VTE Prophylaxis VTE Prophylaxis Intervention: SCD's Lines/Catheters IV Catheter Type (from [facility]): PICC Line Central line still needed: Yes Urinary Cath still in place: Yes Reason Cath still needed: other (indicate) Assessment/Plan Chief Complaint/Hosp Course 1. Sepsis with underlying septic shock secondary to healthcare-associated pneumonia and urinary tract infection along with bacteremia. Continue antibiotics as per infectious diseases. Titrate vasopressors to obtain optimal blood pressure control. Currently off pressors. 2. Ventilator-dependent respiratory failure. Continue mechanical ventilator management as per pulmonology. 3. Acute on chronic kidney injury. The patient is being followed by nephrology. Use nephrotoxic drugs with caution. 4. Normocytic normochromic anemia requiring blood transfusion. Etiology unclear. Stool for OB x1 negative. Status post multiple blood transfusions. Continue Protonix drip. 5. Gross hematuria. Etiology unclear. This has been resolving. Status post evaluation by urology. 6. Hypernatremia, most probably secondary to dehydration. Resolved with free water via G-tube. 7. Hyperkalemia. Resolved. 8. Dysphagia. Status post percutaneous endoscopic gastrostomy tube. 9. History of atrial fibrillation. Currently in sinus rhythm. The patient is not a candidate for any anticoagulation because of underlying severe anemia. 10. Multiple decubitus wounds. Continue local wound care. 11. Fluid, electrolytes and nutrition. Continue G-tube feedings. 12. Deep venous thrombosis prophylaxis. Bilateral sequential compression devices. 13. Gastrointestinal prophylaxis. On proton pump inhibitors. PLAN: Continue antibiotics as per infectious diseases. Transfuse 1 unit of PRBC. Case discussed with Dr. Silverio. Critical care time: 35 minutes. Problems: Subjective 24 Hr Interval Summary Free Text/Dictation The patient is off pressors. Exam/Review of Systems Vital Signs Vitals Vital Signs Date Time Temp Pulse Resp B/P Pulse Ox O2 Delivery O2 Flow Rate FiO2 01/30/17 08:00 98.0 74 25 100/63 99 Mechanical Ventilator 01/30/17 05:10 30 Intake and Output 01/29/17 01/29/17 01/30/17 15:00 23:00 07:00 Intake Total 1256.86 ml 1774.96 ml 900.60 ml Output Total 625 ml 1055 ml 600 ml Balance 631.86 ml 719.96 ml 300.60 ml Exam GENERAL: This is an elderly 71-year-old male patient lying in bed, mechanically ventilated, tracheostomy to ventilator. HEENT: Head normocephalic and atraumatic. The patient has multiple wounds on his scalp. Eyes: Anicteric sclerae. Conjunctivae clear. ENT: Nasal septum is midline. Oral mucosa is dry. Poor dentition. NECK: Tracheostomy in midline. RESPIRATORY: Bilaterally diminished breath sounds. Mechanically ventilated. CARDIAC: Regular rate and rhythm. S1 and S2 heard. ABDOMEN: Slightly distended. Left upper quadrant G-tube in place. GENITOURINARY: The patient has a Lopez catheter in place. No gross hematuria. EXTREMITIES: No cyanosis, no clubbing. Bilateral lower extremity pedal edema. Peripheral pulses are palpable. NEUROLOGIC: The patient is obtunded. Does not track movements. Moans with pain. SKIN: Multiple pressure ulcers. Results Result Diagram: 01/30/17 0430 01/30/17 0430 Results 24 hrs Laboratory Tests Test 01/30/17 04:30 01/30/17 05:29 White Blood Count 3.5 #L Red Blood Count 2.29 L Hemoglobin 6.9 *L Hematocrit 22.7 L Mean Corpuscular Volume 99.1 Mean Corpuscular Hemoglobin 30.1 Mean Corpuscular Hemoglobin Concent 30.4 L Red Cell Distribution Width 16.7 H Platelet Count 99 #L Mean Platelet Volume 13.1 H Neutrophils % 85.0 H Band Neutrophils % 1.0 Lymphocytes % 8.0 L Monocytes % 1.0 Eosinophils % 5.0 Neutrophils # 3.0 Lymphocytes # 0.3 L Monocytes # 0.0 L Eosinophils # 0.2 Sodium Level 141 Potassium Level 3.7 Chloride Level 115 H Carbon Dioxide Level 18 L Anion Gap 12 Blood Urea Nitrogen 118 H Creatinine 2.38 H Glucose Level 74 Calcium Level 7.9 L Phosphorus Level 7.3 H Magnesium Level 2.1 Lab Scanned Report BLOOD TRANSFUSION Medications Medications Current Medications Ondansetron HCl (Zofran Inj) 4 mg Q6H PRN IV NAUSEA AND/OR VOMITING; Start 07/04 at 00:00 Acetaminophen (Tylenol Liquid) 650 mg Q6H PRN PO PAIN LEVEL 1-3 OR FEVER; Start 01/26/17 at 00:00 Morphine Sulfate (morphine) 2 mg Q4H PRN IV PAIN LEVEL 7-10 Last administered on 01/29/17 03:41; Admin Dose 2 MG; Start 01/26/17 at 00:00 Lorazepam 1 mg 1 mg Q2H PRN IV ANXIETY; Start 01/26/17 at 00:00 Linezolid 300 ml @ 300 mls/hr Q12 IVPB Last administered on 01/29/17 21:27; Admin Dose 300 MLS/HR; Start 01/26/17 at 00:00 Meropenem 100 ml @ 200 mls/hr Q12 IVPB Last administered on 01/29/17 21:27; Admin Dose 200 MLS/HR; Start 01/26/17 at 09:00 Pantoprazole 80 mg/Sodium Chloride 100 ml @ 10 mls/hr Q10H IV Last administered on 01/29/17 22:54; Admin Dose 10 MLS/HR; Start 01/26/17 at 06:00 Norepinephrine/ Dextrose (Levophed/D5W) 500 ml @ 1.87 mls/hr TITRATE IV Last administered on 01/28/17 12:38; Admin Dose 9.37 MLS/HR; Start 01/26/17 at 06:00 Collagenase (Santyl) 1 applic DAILY TOP Last administered on 01/29/17 08:36; Admin Dose 1 APPLIC; Start 01/26/17 at 09:00 Hydrogen Peroxide (Hydrogen Peroxide) 1 applic QHS TOP Last administered on 21:27; Admin Dose 1 APPLIC; Start 01/26/17 at 21:00 Hydrogen Peroxide (Hydrogen Peroxide) 1 applic DAILY TOP Last administered on 08:36; Admin Dose 1 APPLIC; Start 01/27/17 at 09:00 Miscellaneous Information (Pending Santyl Order For Wound Care) This patient carrion... PRN PRN XX WOUND CARE; Start 01/27/17 at 11:00 Sodium Hypochlorite 1 applic 1 applic DAILY IRR Last administered on 01/29/17 08:36; Admin Dose 1 APPLIC; Start 01/28/17 at 21:00 Sodium Chloride 1,000 ml @ 75 mls/hr [id number] IV Last administered on 02:16; Admin Dose 75 MLS/HR; Start 01/29/17 at 07:30 Ciprofloxacin/ Dextrose (Cipro Ivpb) 100 ml @ 100 mls/hr Q12 IVPB Last administered on 01/29/17t 21:27; Admin Dose 100 MLS/HR; Start 01/29/17 at 21:00 JULIAN EASON NP Jan 30, 2017 08:58
[2017-01-30] MEDS: CIPROFLOXACIN 200 MG/D5W IVPB 100 ML IVPB SCH ×2 (09:19→22:27)
[2017-01-30] MEDS: LINEZOLID 600 MG/D5W (PMX) 300 ML IVPB SCH ×2 (09:20→21:18)
[2017-01-30] MEDS: MEROPENEM 1 GM/100 ML (PMX) 100 ML IVPB SCH ×2 (09:20→20:32)
[2017-01-30] MEDS: SODIUM HYPOCHLORITE 0.125% 473 ML BTL IRR SCH (09:21)
[2017-01-30] MEDS: HYDROGEN PEROXIDE 118 ML TOP SCH ×2 (09:21→21:59)
[2017-01-30] MEDS: COLLAGENASE 30 GM TUBE TOP SCH (09:30)
[2017-01-30] MEDS: PANTOPRAZOLE IV 80 MG in SOD CHLORIDE 0.9% 100 ML IV SCH ×2 (09:30→20:31)
--- NOTE | 2017-01-30 11:07 | CONS ---
Date/Time of Note Date/Time of Note DATE: 01/30/17 TIME: 11:04 Assessment/Plan Assessment/Plan Additional Assessment/Plan Ventilator setting; AC of 16, tidal volume 500, PEEP of 5, 30% FiO2. Assessment recommendations; next 1. Patient admitted for severe hematuria with anemia. Status post multiple packed RBC transfusion. 2. Possible underlying renal malignancy. 3. Advanced anoxic brain injury, patient remains chronically ventilator dependent. 4. Thrombocytopenia. 5. Pneumonia. Continue current supportive care. Prognosis is extremely poor. Consultation Date/Type/Reason Admit Date/Time Jan 26, 2017 at 01:35 Type of Consultation: Pulmonary/critical care 24 HR Interval Summary Free Text/Dictation Patient's condition remains unchanged. Still having hematuria. Remains unresponsive due to severe anoxic brain injury. Also remains ventilator dependent. [place]; elderly male, on ventilator via tracheostomy currently in no distress. Unresponsive. Exam/Review of Systems Vital Signs Vitals Vital Signs Date Time Temp Pulse Resp B/P Pulse Ox O2 Delivery O2 Flow Rate FiO2 01/30/17 09:25 71 20 100 30 01/30/17 08:00 98.0 100/63 Mechanical Ventilator Intake and Output 01/29/17 01/29/17 01/30/17 14:59 22:59 06:59 Intake Total 1193.74 ml 1774.96 ml 977.47 ml Output Total 570 ml 1055 ml 700 ml Balance 623.74 ml 719.96 ml 277.47 ml Exam HEENT exam is; supple neck, no JVD. No lymphadenopathy. Midline trachea. No thyromegaly. Patient is edentulous. Pupils are midsize bilaterally. Tracheostomy in place with clean insertion site. Chest examination; clear to auscultation. S1-S2 audible, no murmurs. Regular rhythm. Abdomen examination; soft, nondistended. G-tube in place. Bowel sounds audible. Extremity exam is; no peripheral edema. QUALITY IMPROVEMENT COORDINATOR (RN) examination; patient remains unresponsive. Results Result Diagram: 01/30/17 0430 01/30/17 043 Results 24 hrs Laboratory Tests Test 01/30/17 04:30 01/30/17 05:29 White Blood Count 3.5 #L Red Blood Count 2.29 L Hemoglobin 6.9 *L Hematocrit 22.7 L Mean Corpuscular Volume 99.1 Mean Corpuscular Hemoglobin 30.1 Mean Corpuscular Hemoglobin Concent 30.4 L Red Cell Distribution Width 16.7 H Platelet Count 99 #L Mean Platelet Volume 13.1 H Neutrophils % 85.0 H Band Neutrophils % 1.0 Lymphocytes % 8.0 L Monocytes % 1.0 Eosinophils % 5.0 Neutrophils # 3.0 Lymphocytes # 0.3 L Monocytes # 0.0 L Eosinophils # 0.2 Sodium Level 141 Potassium Level 3.7 Chloride Level 115 H Carbon Dioxide Level 18 L Anion Gap 12 Blood Urea Nitrogen 118 H Creatinine 2.38 H Glucose Level 74 Calcium Level 7.9 L Phosphorus Level 7.3 H Magnesium Level 2.1 Lab Scanned Report BLOOD TRANSFUSION Medications Medications Current Medications Ondansetron HCl (Zofran Inj) 4 mg Q6H PRN IV NAUSEA AND/OR VOMITING; Start 07/04 at 00:00 Acetaminophen (Tylenol Liquid) 650 mg Q6H PRN PO PAIN LEVEL 1-3 OR FEVER; Start 01/26/17 at 00:00 Morphine Sulfate (morphine) 2 mg Q4H PRN IV PAIN LEVEL 7-10 Last administered on 01/29/17 03:41; Admin Dose 2 MG; Start 01/26/17 at 00:00 Lorazepam 1 mg 1 mg Q2H PRN IV ANXIETY; Start 01/26/17 at 00:00 Linezolid 300 ml @ 300 mls/hr Q12 IVPB Last administered on 01/30/17 09:20; Admin Dose 300 MLS/HR; Start 01/26/17 at 00:00 Meropenem 100 ml @ 200 mls/hr Q12 IVPB Last administered on 01/30/17 09:20; Admin Dose 200 MLS/HR; Start 01/26/17 at 09:00 Pantoprazole 80 mg/Sodium Chloride 100 ml @ 10 mls/hr Q10H IV Last administered on 01/30/17 09:30; Admin Dose 10 MLS/HR; Start 01/26/17 at 06:00 Norepinephrine/ Dextrose (Levophed/D5W) 500 ml @ 1.87 mls/hr TITRATE IV Last administered on 01/28/17 12:38; Admin Dose 9.37 MLS/HR; Start 01/26/17 at 06:00 Collagenase (Santyl) 1 applic DAILY TOP Last administered on 01/30/17 09:30; Admin Dose 1 APPLIC; Start 01/26/17 at 09:00 Hydrogen Peroxide (Hydrogen Peroxide) 1 applic QHS TOP Last administered on 21:27; Admin Dose 1 APPLIC; Start 01/26/17 at 21:00 Hydrogen Peroxide (Hydrogen Peroxide) 1 applic DAILY TOP Last administered on 09:21; Admin Dose 1 APPLIC; Start 01/27/17 at 09:00 Miscellaneous [facility] This patient carrion... PRN PRN XX WOUND CARE; Start 01/27/17 at 11:00 Sodium Hypochlorite 1 applic 1 applic DAILY IRR Last administered on 01/30/17 09:21; Admin Dose 1 APPLIC; Start 01/28/17 at 21:00 Sodium Chloride 1,000 ml @ 75 mls/hr [id number] IV Last administered on 02:16; Admin Dose 75 MLS/HR; Start 01/29/17 at 07:30 Ciprofloxacin/ Dextrose (Cipro Ivpb) 100 ml @ 100 mls/hr Q12 IVPB Last administered on 01/30/17 09:19; Admin Dose 100 MLS/HR; Start 01/29/17 at 21:00 AARON HUFF Jan 30, 2017 11:07
--- NOTE | 2017-01-30 12:42 | CONS ---
Date/Time of Note Date/Time of Note DATE: 01/30/17 TIME: 12:40 Assessment/Plan Assessment/Plan Chief Complaint/Hosp Course SUBJECTIVE: No events. The patient is still on low dose Levophed, unresponsive , in no distress. No fevers. MICROBIOLOGY: Blood cultures growing Staph and Proteus mirabilis. Urine culture grew Proteus mirabilis. Tracheal aspirate growing multidrug resistant Pseudomonas and Klebsiella pneumoniae susceptible to Cipro and Levaquin. INDWELLINGS: Trach, PEG, Lopez, and PICC line placed yesterday. ANTIMICROBIALS: Zyvox, Cipro and Meropenem. OBJECTIVE: GENERAL: This is a chronically ill-appearing, elderly man who is in no distress. HEENT: Head atraumatic, normocephalic. Sclerae anicteric. Buccal mucosa dry. NECK: Supple. Tracheostomy present. CHEST: Rise symmetrical. Breath sounds diminished. HEART: S1, S2. ABDOMEN: Soft, bowel tones present. EXTREMITIES: With trace edema. ASSESSMENT: 1. Severe sepsis with shock. 2. Polymicrobial bacteremia 3. Urinary tract infection. 4. Unstageable sacral decubitus. 5. Acute renal failure. 6. Right upper kidney mass suspicious for malignancy. 7. HCAP. PLAN: The patient remains unchanged,on Levophed at 0.5 mcg/min. He is being seen by multiple consultants. Continue abx, follow repeat blood cultures. [facility] staff Problems: Consultation Date/Type/Reason Admit Date/Time Jan 26, 2017 at 01:35 Initial Consult Date 01/27/17 Type of Consultation: ID Exam/Review of Systems Vital Signs Vitals Vital Signs Date Time Temp Pulse Resp B/P Pulse Ox O2 Delivery O2 Flow Rate FiO2 01/30/17 09:25 71 20 100 30 01/30/17 08:00 98.0 100/63 Mechanical Ventilator Intake and Output 01/29/17 01/29/17 01/30/17 15:00 23:00 07:00 Intake Total 1256.86 ml 1774.96 ml 985.60 ml Output Total 625 ml 1055 ml 600 ml Balance 631.86 ml 719.96 ml 385.60 ml Results Result Diagram: 01/30/17 0430 01/30/17 0430 Results 24 hrs Laboratory Tests Test 01/30/17 04:30 01/30/17 05:29 White Blood Count 3.5 #L Red Blood Count 2.29 L Hemoglobin 6.9 *L Hematocrit 22.7 L Mean Corpuscular Volume 99.1 Mean Corpuscular Hemoglobin 30.1 Mean Corpuscular Hemoglobin Concent 30.4 L Red Cell Distribution Width 16.7 H Platelet Count 99 #L Mean Platelet Volume 13.1 H Neutrophils % 85.0 H Band Neutrophils % 1.0 Lymphocytes % 8.0 L Monocytes % 1.0 Eosinophils % 5.0 Neutrophils # 3.0 Lymphocytes # 0.3 L Monocytes # 0.0 L Eosinophils # 0.2 Sodium Level 141 Potassium Level 3.7 Chloride Level 115 H Carbon Dioxide Level 18 L Anion Gap 12 Blood Urea Nitrogen 118 H Creatinine 2.38 H Glucose Level 74 Calcium Level 7.9 L Phosphorus Level 7.3 H Magnesium Level 2.1 Lab Scanned Report BLOOD TRANSFUSION Medications Medications Current Medications Ondansetron HCl (Zofran Inj) 4 mg Q6H PRN IV NAUSEA AND/OR VOMITING; Start 07/04 at 00:00 Acetaminophen (Tylenol Liquid) 650 mg Q6H PRN PO PAIN LEVEL 1-3 OR FEVER; Start 01/26/17 at 00:00 Morphine Sulfate (morphine) 2 mg Q4H PRN IV PAIN LEVEL 7-10 Last administered on 01/29/17 03:41; Admin Dose 2 MG; Start 01/26/17 at 00:00 Lorazepam 1 mg 1 mg Q2H PRN IV ANXIETY; Start 01/26/17 at 00:00 Linezolid 300 ml @ 300 mls/hr Q12 IVPB Last administered on 01/30/17 09:20; Admin Dose 300 MLS/HR; Start 01/26/17 at 00:00 Meropenem 100 ml @ 200 mls/hr Q12 IVPB Last administered on 01/30/17 09:20; Admin Dose 200 MLS/HR; Start 01/26/17 at 09:00 Pantoprazole 80 mg/Sodium Chloride 100 ml @ 10 mls/hr Q10H IV Last administered on 01/30/17 09:30; Admin Dose 10 MLS/HR; Start 01/26/17 at 06:00 Norepinephrine/ Dextrose (Levophed/D5W) 500 ml @ 1.87 mls/hr TITRATE IV Last administered on 01/28/17 12:38; Admin Dose 9.37 MLS/HR; Start 01/26/17 at 06:00 Collagenase (Santyl) 1 applic DAILY TOP Last administered on 01/30/17 09:30; Admin Dose 1 APPLIC; Start 01/26/17 at 09:00 Hydrogen Peroxide (Hydrogen Peroxide) 1 applic QHS TOP Last administered on 21:27; Admin Dose 1 APPLIC; Start 01/26/17 at 21:00 Hydrogen Peroxide (Hydrogen Peroxide) 1 applic DAILY TOP Last administered on 09:21; Admin Dose 1 APPLIC; Start 01/27/17 at 09:00 Miscellaneous Information (Pending Santyl Order For Wound Care) This patient carrion... PRN PRN XX WOUND CARE; Start 01/27/17 at 11:00 Sodium Hypochlorite 1 applic 1 applic DAILY IRR Last administered on 01/30/17 09:21; Admin Dose 1 APPLIC; Start 01/28/17 at 21:00 Sodium Chloride 1,000 ml @ 75 mls/hr [id number] IV Last administered on 02:16; Admin Dose 75 MLS/HR; Start 01/29/17 at 07:30 Ciprofloxacin/ Dextrose (Cipro Ivpb) 100 ml @ 100 mls/hr Q12 IVPB Last administered on 01/30/17 09:19; Admin Dose 100 MLS/HR; Start 01/29/17 at 21:00 CHRISS RIVAS NP Jan 30, 2017 12:42
[2017-01-31] VITALS (32 sets, daily range): BP systolic 92–119; BP diastolic 61–84; PULSE 59–86; RESP 17–29
[2017-01-31 05:40] LABS: CREATININE 2.14 mg/dl (0.61-1.24); POTASSIUM 3.5 mmol/L (3.5-5.1)
[2017-01-31] MEDS: PANTOPRAZOLE IV 80 MG in SOD CHLORIDE 0.9% 100 ML IV SCH ×2 (06:07→16:31)
[2017-01-31] MEDS: COLLAGENASE 30 GM TUBE TOP SCH ×2 (06:07→10:04)
[2017-01-31] MEDS: CIPROFLOXACIN 200 MG/D5W IVPB 100 ML IVPB SCH ×2 (07:57→21:00)
[2017-01-31] MEDS: SOD CHLORIDE 0.9% 1,000 ML IV SCH (07:57)
[2017-01-31 08:11] LABS: ADD SCAN DIFF NO
[2017-01-31 08:16] LABS: ABNORMAL IP MESSAGE 1; EOSINOPHILS # 0.3 10^3/ul (0.0-0.5); EOSINOPHILS % 8.1 % (0.0-7.0); HEMATOCRIT 25.8 % (42.0-52.0); HEMOGLOBIN 8.2 g/dl (14.0-18.0); LYMPHOCYTES # 0.2 10^3/ul (0.8-2.9); LYMPHOCYTES % 5.6 % (15.0-51.0); MEAN CORPUSCULAR HEMOGLOBIN 30.7 pg (29.0-33.0); MEAN CORPUSCULAR HGB CONC 31.8 g/dl (32.0-37.0); MEAN CORPUSCULAR VOLUME 96.6 fl (82.0-101.0); MEAN PLATELET VOLUME 12.9 fl (7.4-10.4); MONOCYTE # 0.2 10^3/ul (0.3-0.9); MONOCYTES % 5.6 % (0.0-11.0); NEUTROPHIL # 2.9 10^3/ul (1.6-7.5); NEUTROPHILS % 80.1 % (39.0-77.0); PLATELET COUNT 102 10^3/UL (140-415); RED BLOOD COUNT 2.67 10^6/ul (4.70-6.10); RED CELL DISTRIBUTION WIDTH 16.3 % (11.5-14.5); WHITE BLOOD COUNT 3.6 10^3/ul (4.8-10.8)
--- NOTE | 2017-01-31 08:20 | PN ---
DATE: 01/31/2017 SUBJECTIVE: The patient is critically ill, but stable. No other acute events noted overnight. No hemoptysis, hematemesis or hematochezia. OBJECTIVE: VITAL SIGNS: Blood pressure 113/76, respirations 19, pulse 66, temperature 97.1. I's and O's have been reviewed. The patient had 4 L in, 2 L out. HEENT: Head is normocephalic. NECK: Supple. HEART: Regular rate. LUNGS: Showed diminished breath sounds at the base. ABDOMEN: Soft, nontender to palpation. No rebound or guarding. EXTREMITIES: Negative for clubbing or cyanosis. No edema. Positive wounds. DERMATOLOGIC: No rashes. MUSCULOSKELETAL: Have no joint effusion. NEUROLOGIC: No change in exam. MEDICATIONS: The patient's medications have been reviewed. LABORATORY DATA: Shows sodium 140, potassium 3.5, chloride 115, bicarbonate 18, BUN 100, creatinine 2.14, calcium 8.0, phosphorus 7.0. CBC is currently pending. ASSESSMENT AND PLAN: 1. Nonoliguric acute kidney injury on top of chronic kidney disease stage 4, with a baseline creati nine around 1.5 to 2.5 mg/dL. Etiology of acute kidney injury is secondary to acute tubular necrosi s with obstructive uropathy. The patient has been evaluated by urology. No further plans for inter vention at this time. The patient's renal function has slowly been improving with supportive care a nd IV hydration. At this point, continue the current treatment plan, renally dose all medications, avoid nephrotoxins. Will follow up with urology for further recommendations. No immediate need for renal replacement therapy at this time. 2. Gross hematuria. Etiology is unclear, possibly from renal cell mass versus other. Hematuria carrion s improved. Continue flushes, follow up with urology. 3. Mineral bone disorder. Continue to monitor calcium and phosphorus levels. 4. Anemia. Continue to monitor hemoglobin and hematocrit levels. Continue blood transfusions. Wi ll defer in the setting of possible renal cell carcinoma. 5. Right renal mass, with possible renal cell carcinoma. The patient has been evaluated by urology . No plans for intervention at this time. Will monitor. 6. Ventilatory-dependent respiratory failure. Vent settings have been reviewed. ABG has been revi ewed. Continue to monitor. Follow up with pulmonary. 7. Dysphagia. Status post PEG. Would recommend to start tube feeding. Defer to primary team. 8. Chronic encephalopathy. Etiology is multifactorial. Continue to monitor. No change. 9. Sepsis secondary to healthcare-associated pneumonia and urinary tract infection. Continue the c urrent antibiotic regimen. 10. Esophagitis and gastritis. Continue PPI. 11. Diabetes. Continue Accu-Cheks and insulin sliding scale. 12. Decubitus wound. Continue wound care. Please note, I spent over 35 minutes of critical care time with this patient. Dictated By: JACOB LOVING DO NR/NTS Conf#: [id number] DID#: [id number]
[2017-01-31] MEDS: MEROPENEM 1 GM/100 ML (PMX) 100 ML IVPB SCH ×2 (08:55→20:29)
--- NOTE | 2017-01-31 09:12 | PN ---
Date/Time of Note Date/Time of Note DATE: 01/31/17 TIME: 09:09 Assessment/Plan VTE Prophylaxis VTE Prophylaxis Intervention: SCD's Lines/Catheters IV Catheter Type (from [facility]): PICC Line Central line still needed: Yes Urinary Cath still in place: Yes Reason Cath still needed: other (indicate) Assessment/Plan Chief Complaint/Hosp Course 1. Sepsis with underlying septic shock secondary to healthcare-associated pneumonia and urinary tract infection along with bacteremia. Continue antibiotics as per infectious diseases. Titrate vasopressors to obtain optimal blood pressure control. Currently off pressors. 2. Ventilator-dependent respiratory failure. Continue mechanical ventilator management as per pulmonology. 3. Acute on chronic kidney injury. The patient is being followed by nephrology. Use nephrotoxic drugs with caution. 4. Normocytic normochromic anemia requiring blood transfusion. Etiology unclear. Stool for OB x1 negative. Status post multiple blood transfusions. Continue Protonix drip. 5. Gross hematuria. Etiology unclear. This has been resolving. Status post evaluation by urology. 6. Hypernatremia, most probably secondary to dehydration. Resolved with free water via G-tube. 7. Hyperkalemia. Resolved. 8. Dysphagia. Status post percutaneous endoscopic gastrostomy tube. 9. History of atrial fibrillation. Currently in sinus rhythm. The patient is not a candidate for any anticoagulation because of underlying severe anemia. 10. Multiple decubitus wounds. Continue local wound care. 11. Fluid, electrolytes and nutrition. Continue G-tube feedings. 12. Deep venous thrombosis prophylaxis. Bilateral sequential compression devices. 13. Gastrointestinal prophylaxis. On proton pump inhibitors. PLAN: Continue antibiotics as per infectious diseases. Case discussed with Dr. Silverio. Critical care time: 35 minutes. Problems: Subjective 24 Hr Interval Summary Free Text/Dictation The patient remains off pressors. Exam/Review of Systems Vital Signs Vitals Vital Signs Date Time Temp Pulse Resp B/P Pulse Ox O2 Delivery O2 Flow Rate FiO2 01/31/17 08:00 97.5 74 29 119/78 100 Mechanical Ventilator 01/31/17 07:24 30 Intake and Output 01/30/17 01/30/17 01/31/17 15:00 23:00 07:00 Intake Total 1535 ml 1470 ml 1025 ml Output Total 980 ml 405 ml 660 ml Balance 555 ml 1065 ml 365 ml Exam GENERAL: This is an elderly 71-year-old male patient lying in bed, mechanically ventilated, tracheostomy to ventilator. HEENT: Head normocephalic and atraumatic. The patient has multiple wounds on his scalp. Eyes: Anicteric sclerae. Conjunctivae clear. ENT: Nasal septum is midline. Oral mucosa is dry. Poor dentition. NECK: Tracheostomy in midline. RESPIRATORY: Bilaterally diminished breath sounds. Mechanically ventilated. CARDIAC: Regular rate and rhythm. S1 and S2 heard. ABDOMEN: Slightly distended. Left upper quadrant G-tube in place. GENITOURINARY: The patient has a Lopez catheter in place. No gross hematuria. EXTREMITIES: No cyanosis, no clubbing. Bilateral lower extremity pedal edema. Peripheral pulses are palpable. NEUROLOGIC: The patient is obtunded. Does not track movements. Moans with pain. SKIN: Multiple pressure ulcers. Results Result Diagram: 01/31/17 0400 01/31/17 0400 Results 24 hrs Laboratory Tests Test 01/31/17 04:00 01/31/17 05:46 White Blood Count 3.6 L Red Blood Count 2.67 L Hemoglobin 8.2 L Hematocrit 25.8 L Mean Corpuscular Volume 96.6 Mean Corpuscular Hemoglobin 30.7 Mean Corpuscular Hemoglobin Concent 31.8 L Red Cell Distribution Width 16.3 H Platelet Count 102 L Mean Platelet Volume 12.9 H Neutrophils % 80.1 H Lymphocytes % 5.6 L Monocytes % 5.6 Eosinophils % 8.1 H Basophils % 0.0 Nucleated Red Blood Cells % 0.0 Neutrophils # 2.9 Lymphocytes # 0.2 L Monocytes # 0.2 L Eosinophils # 0.3 Basophils # 0.0 Nucleated Red Blood Cells # 0.0 Sodium Level 140 Potassium Level 3.5 Chloride Level 115 H Carbon Dioxide Level 18 L Anion Gap 11 Blood Urea Nitrogen 100 H Creatinine 2.14 H Glucose Level 73 Calcium Level 8.0 L Phosphorus Level 7.0 H Magnesium Level 2.0 Lab Scanned Report BLOOD TRANSFUSION Medications Medications Current Medications Ondansetron HCl (Zofran Inj) 4 mg Q6H PRN IV NAUSEA AND/OR VOMITING; Start 07/04 at 00:00 Acetaminophen (Tylenol Liquid) 650 mg Q6H PRN PO PAIN LEVEL 1-3 OR FEVER; Start 01/26/17 at 00:00 Morphine Sulfate (morphine) 2 mg Q4H PRN IV PAIN LEVEL 7-10 Last administered on 01/29/17 03:41; Admin Dose 2 MG; Start 01/26/17 at 00:00 Lorazepam 1 mg 1 mg Q2H PRN IV ANXIETY; Start 01/26/17 at 00:00 Linezolid 300 ml @ 300 mls/hr Q12 IVPB Last administered on 01/30/17 21:18; Admin Dose 300 MLS/HR; Start 01/26/17 at 00:00 Meropenem 100 ml @ 200 mls/hr Q12 IVPB Last administered on 01/31/17 08:55; Admin Dose 200 MLS/HR; Start 01/26/17 at 09:00 Pantoprazole 80 mg/Sodium Chloride 100 ml @ 10 mls/hr Q10H IV Last administered on 01/31/17 06:07; Admin Dose 10 MLS/HR; Start 01/26/17 at 06:00 Norepinephrine/ Dextrose (Levophed/D5W) 500 ml @ 1.87 mls/hr TITRATE IV Last administered on 01/28/17 12:38; Admin Dose 9.37 MLS/HR; Start 01/26/17 at 06:00 Collagenase (Santyl) 1 applic DAILY TOP Last administered on 01/31/17 06:07; Admin Dose 1 APPLIC; Start 01/26/17 at 09:00 Hydrogen Peroxide (Hydrogen Peroxide) 1 applic QHS TOP Last administered on 21:59; Admin Dose 1 APPLIC; Start 01/26/17 at 21:00 Hydrogen Peroxide (Hydrogen Peroxide) 1 applic DAILY TOP Last administered on 09:21; Admin Dose 1 APPLIC; Start 01/27/17 at 09:00 Miscellaneous Information (Pending Santyl Order For Wound Care) This patient carrion... PRN PRN XX WOUND CARE; Start 01/27/17 at 11:00 Sodium Hypochlorite 1 applic 1 applic DAILY IRR Last administered on 01/30/17 09:21; Admin Dose 1 APPLIC; Start 01/28/17 at 21:00 Sodium Chloride 1,000 ml @ 75 mls/hr [id number] IV Last administered on 07:57; Admin Dose 75 MLS/HR; Start 01/29/17 at 07:30 Ciprofloxacin/ Dextrose (Cipro Ivpb) 100 ml @ 100 mls/hr Q12 IVPB Last administered on 01/31/17t 07:57; Admin Dose 100 MLS/HR; Start 01/29/17 at 21:00 JULIAN EASON NP Jan 31, 2017 09:12
[2017-01-31] MEDS: HYDROGEN PEROXIDE 118 ML TOP SCH ×2 (10:00→20:32)
[2017-01-31] MEDS: SODIUM HYPOCHLORITE 0.125% 473 ML BTL IRR SCH (10:05)
[2017-01-31] MEDS: LINEZOLID 600 MG/D5W (PMX) 300 ML IVPB SCH ×2 (10:25→21:01)
--- NOTE | 2017-01-31 10:38 | CONS ---
Date/Time of Note Date/Time of Note DATE: 01/31/17 TIME: 10:36 Assessment/Plan Assessment/Plan Additional Assessment/Plan Ventilator setting; AC of 16, tidal volume 500, PEEP of 5, 30% FiO2. Assessment recommendations; 1. P patient admitted for severe hematuria likely from underlying renal malignancy. 2. 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 Patient remains ventilator dependent. 3. Bilateral pneumonia. 4. Thrombocytopenia. Continue current supportive care. Will obtain follow-up chest x-ray. Prognosis remains very poor. Consultation Date/Type/Reason Admit Date/Time Jan 26, 2017 at 01:35 Type of Consultation: Pulmonary/critical care 24 HR Interval Summary Free Text/Dictation Patient condition remains unchanged. Patient however has remained hemodynamically stable. Massiel; elderly male, on ventilator via tracheostomy currently in no distress. Unresponsive. Exam/Review of Systems Vital Signs Vitals Vital Signs Date Time Temp Pulse Resp B/P Pulse Ox O2 Delivery O2 Flow Rate FiO2 01/31/17 09:00 74 25 99/65 100 Mechanical Ventilator 01/31/17 08:00 97.5 01/31/17 07:24 30 Intake and Output 01/30/17 01/30/17 01/31/17 15:00 23:00 07:00 Intake Total 1535 ml 1470 ml 1025 ml Output Total 980 ml 405 ml 660 ml Balance 555 ml 1065 ml 365 ml Exam HEENT examination; supple neck, patient is edentulous. Tracheostomy in place. Pupils are small bilaterally. Chest examination; diminished breath sounds bilaterally. No added sound. S1- S2 audible, no murmurs. Regular rhythm. Abdomen examination; soft, there is a very large epigastric reducible hernia present. G-tube in place. Bowel sounds audible. Extremity examination; no peripheral edema. CREDIT UNION EXAMINER examination; patient is awake but unresponsive to any commands. Results Result Diagram: 01/31/17 0400 01/31/17 0400 Results 24 hrs Laboratory Tests Test 01/31/17 04:00 01/31/17 05:46 White Blood Count 3.6 L Red Blood Count 2.67 L Hemoglobin 8.2 L Hematocrit 25.8 L Mean Corpuscular Volume 96.6 Mean Corpuscular Hemoglobin 30.7 Mean Corpuscular Hemoglobin Concent 31.8 L Red Cell Distribution Width 16.3 H Platelet Count 102 L Mean Platelet Volume 12.9 H Neutrophils % 80.1 H Lymphocytes % 5.6 L Monocytes % 5.6 Eosinophils % 8.1 H Basophils % 0.0 Nucleated Red Blood Cells % 0.0 Neutrophils # 2.9 Lymphocytes # 0.2 L Monocytes # 0.2 L Eosinophils # 0.3 Basophils # 0.0 Nucleated Red Blood Cells # 0.0 Sodium Level 140 Potassium Level 3.5 Chloride Level 115 H Carbon Dioxide Level 18 L Anion Gap 11 Blood Urea Nitrogen 100 H Creatinine 2.14 H Glucose Level 73 Calcium Level 8.0 L Phosphorus Level 7.0 H Magnesium Level 2.0 Lab Scanned Report BLOOD TRANSFUSION Medications Medications Current Medications Ondansetron HCl (Zofran Inj) 4 mg Q6H PRN IV NAUSEA AND/OR VOMITING; Start 07/04 at 00:00 Acetaminophen (Tylenol Liquid) 650 mg Q6H PRN PO PAIN LEVEL 1-3 OR FEVER; Start 01/26/17 at 00:00 Morphine Sulfate (morphine) 2 mg Q4H PRN IV PAIN LEVEL 7-10 Last administered on 01/29/17 03:41; Admin Dose 2 MG; Start 01/26/17 at 00:00 Lorazepam 1 mg 1 mg Q2H PRN IV ANXIETY; Start 01/26/17 at 00:00 Linezolid 300 ml @ 300 mls/hr Q12 IVPB Last administered on 01/31/17 10:25; Admin Dose 300 MLS/HR; Start 01/26/17 at 00:00 Meropenem 100 ml @ 200 mls/hr Q12 IVPB Last administered on 01/31/17 08:55; Admin Dose 200 MLS/HR; Start 01/26/17 at 09:00 Pantoprazole 80 mg/Sodium Chloride 100 ml @ 10 mls/hr Q10H IV Last administered on 01/31/17 06:07; Admin Dose 10 MLS/HR; Start 01/26/17 at 06:00 Norepinephrine/ Dextrose (Levophed/D5W) 500 ml @ 1.87 mls/hr TITRATE IV Last administered on 01/28/17 12:38; Admin Dose 9.37 MLS/HR; Start 01/26/17 at 06:00 Collagenase (Santyl) 1 applic DAILY TOP Last administered on 01/31/17 10:04; Admin Dose 1 APPLIC; Start 01/26/17 at 09:00 Hydrogen Peroxide (Hydrogen Peroxide) 1 applic QHS TOP Last administered on 21:59; Admin Dose 1 APPLIC; Start 01/26/17 at 21:00 Hydrogen Peroxide (Hydrogen Peroxide) 1 applic DAILY TOP Last administered on 10:00; Admin Dose 1 APPLIC; Start 01/27/17 at 09:00 Miscellaneous Information (Pending Santyl Order For Wound Care) This patient carrion... PRN PRN XX WOUND CARE; Start 01/27/17 at 11:00 Sodium Hypochlorite 1 applic 1 applic DAILY IRR Last administered on 01/31/17 10:05; Admin Dose 1 APPLIC; Start 01/28/17 at 21:00 Sodium Chloride 1,000 ml @ 75 mls/hr [id number] IV Last administered on 07:57; Admin Dose 75 MLS/HR; Start 01/29/17 at 07:30 Ciprofloxacin/ Dextrose (Cipro Ivpb) 100 ml @ 100 mls/hr Q12 IVPB Last administered on 01/31/17 07:57; Admin Dose 100 MLS/HR; Start 01/29/17 at 21:00 AARON HUFF Jan 31, 2017 10:38
--- NOTE | 2017-01-31 12:24 | CONS ---
Date/Time of Note Date/Time of Note DATE: 01/31/17 TIME: 12:22 Assessment/Plan Assessment/Plan Chief Complaint/Hosp Course SUBJECTIVE: No events. The patient is off Levophed, unresponsive, in no distress. No fevers. MICROBIOLOGY: Blood cultures growing Staph and Proteus mirabilis. Urine culture grew Proteus mirabilis. Tracheal aspirate growing multidrug resistant Pseudomonas and Klebsiella pneumoniae susceptible to Cipro and Levaquin. INDWELLINGS: Trach, PEG, Lopez, and PICC line placed yesterday. ANTIMICROBIALS: Zyvox, Cipro and Meropenem. OBJECTIVE: GENERAL: This is a chronically ill-appearing, elderly man who is in no distress. HEENT: Head atraumatic, normocephalic. Sclerae anicteric. Buccal mucosa dry. NECK: Supple. Tracheostomy present. CHEST: Rise symmetrical. Breath sounds diminished. HEART: S1, S2. ABDOMEN: Soft, bowel tones present. EXTREMITIES: With trace edema. ASSESSMENT: 1. Severe sepsis with shock==> off pressors. 2. Polymicrobial bacteremia 3. Urinary tract infection. 4. Unstageable sacral decubitus. 5. Acute renal failure. 6. Right upper kidney mass suspicious for malignancy. 7. HCAP. PLAN: Clinically unchanged, stable off pressors, repeat bld cx negative, continue abx, local wound care, prognosis poor DW staff Problems: Consultation Date/Type/Reason Admit Date/Time Jan 26, 2017 at 01:35 Initial Consult Date 01/27/17 Type of Consultation: id Exam/Review of Systems Vital Signs Vitals Vital Signs Date Time Temp Pulse Resp B/P Pulse Ox O2 Delivery O2 Flow Rate FiO2 01/31/17 11:00 72 24 108/68 100 Mechanical Ventilator 01/31/17 09:00 30 01/31/17 08:00 97.5 Intake and Output 01/30/17 01/30/17 01/31/17 15:00 23:00 07:00 Intake Total 1535 ml 1470 ml 1025 ml Output Total 980 ml 405 ml 660 ml Balance 555 ml 1065 ml 365 ml Results Result Diagram: 01/31/17 0400 01/31/17 0400 Results 24 hrs Laboratory Tests Test 01/31/17 04:00 01/31/17 05:46 White Blood Count 3.6 L Red Blood Count 2.67 L Hemoglobin 8.2 L Hematocrit 25.8 L Mean Corpuscular Volume 96.6 Mean Corpuscular Hemoglobin 30.7 Mean Corpuscular Hemoglobin Concent 31.8 L Red Cell Distribution Width 16.3 H Platelet Count 102 L Mean Platelet Volume 12.9 H Neutrophils % 80.1 H Lymphocytes % 5.6 L Monocytes % 5.6 Eosinophils % 8.1 H Basophils % 0.0 Nucleated Red Blood Cells % 0.0 Neutrophils # 2.9 Lymphocytes # 0.2 L Monocytes # 0.2 L Eosinophils # 0.3 Basophils # 0.0 Nucleated Red Blood Cells # 0.0 Sodium Level 140 Potassium Level 3.5 Chloride Level 115 H Carbon Dioxide Level 18 L Anion Gap 11 Blood Urea Nitrogen 100 H Creatinine 2.14 H Glucose Level 73 Calcium Level 8.0 L Phosphorus Level 7.0 H Magnesium Level 2.0 Lab Scanned Report BLOOD TRANSFUSION Medications Medications Current Medications Ondansetron HCl (Zofran Inj) 4 mg Q6H PRN IV NAUSEA AND/OR VOMITING; Start 07/04 at 00:00 Acetaminophen (Tylenol Liquid) 650 mg Q6H PRN PO PAIN LEVEL 1-3 OR FEVER; Start 01/26/17 at 00:00 Morphine Sulfate (morphine) 2 mg Q4H PRN IV PAIN LEVEL 7-10 Last administered on 01/29/17 03:41; Admin Dose 2 MG; Start 01/26/17 at 00:00 Lorazepam 1 mg 1 mg Q2H PRN IV ANXIETY; Start 01/26/17 at 00:00 Linezolid 300 ml @ 300 mls/hr Q12 IVPB Last administered on 01/31/17 10:25; Admin Dose 300 MLS/HR; Start 01/26/17 at 00:00 Meropenem 100 ml @ 200 mls/hr Q12 IVPB Last administered on 01/31/17 08:55; Admin Dose 200 MLS/HR; Start 01/26/17 at 09:00 Pantoprazole 80 mg/Sodium Chloride 100 ml @ 10 mls/hr Q10H IV Last administered on 01/31/17 06:07; Admin Dose 10 MLS/HR; Start 01/26/17 at 06:00 Norepinephrine/ Dextrose (Levophed/D5W) 500 ml @ 1.87 mls/hr TITRATE IV Last administered on 01/28/17 12:38; Admin Dose 9.37 MLS/HR; Start 01/26/17 at 06:00 Collagenase (Santyl) 1 applic DAILY TOP Last administered on 01/31/17 10:04; Admin Dose 1 APPLIC; Start 01/26/17 at 09:00 Hydrogen Peroxide (Hydrogen Peroxide) 1 applic QHS TOP Last administered on 21:59; Admin Dose 1 APPLIC; Start 01/26/17 at 21:00 Hydrogen Peroxide (Hydrogen Peroxide) 1 applic DAILY TOP Last administered on 10:00; Admin Dose 1 APPLIC; Start 01/27/17 at 09:00 Miscellaneous Information (Pending Santyl Order For Wound Care) This patient carrion... PRN PRN XX WOUND CARE; Start 01/27/17 at 11:00 Sodium Hypochlorite 1 applic 1 applic DAILY IRR Last administered on 01/31/17 10:05; Admin Dose 1 APPLIC; Start 01/28/17 at 21:00 Sodium Chloride 1,000 ml @ 75 mls/hr [id number] IV Last administered on 07:57; Admin Dose 75 MLS/HR; Start 01/29/17 at 07:30 Ciprofloxacin/ Dextrose (Cipro Ivpb) 100 ml @ 100 mls/hr Q12 IVPB Last administered on 01/31/17 07:57; Admin Dose 100 MLS/HR; Start 01/29/17 at 21:00 CHRISS RIVAS NP Jan 31, 2017 12:24
--- NOTE | 2017-01-31 14:13 | RADRPT ---
PROCEDURE: XR Chest. CLINICAL INDICATION: Shortness of breath. TECHNIQUE: Single frontal view. COMPARISON: 01/28/2017. FINDINGS: The tracheostomy tube and left arm PICC line remain in satisfactory position. There is right basila r atelectasis or pneumonia, unchanged. There is mild left basilar atelectasis, unchanged. The heart size is normal. There is no pleural effusion. There is no pneumothorax. IMPRESSION: 1. No change from 01/28/2017. RPTAT: QQ .Gautam Myers MD, MD Date Time Electronically viewed and signed by .Gautam Myers MD, MD on 01/31/2017 14:13 .R/
[2017-01-31] MEDS: SEVELAMER CARBONATE 0.8 GM PKT PO SCH ×2 (14:14→17:10)
[2017-02-01] VITALS (27 sets, daily range): BP systolic 84–124; BP diastolic 57–83; PULSE 68–87; RESP 0–42
[2017-02-01] MEDS: SOD CHLORIDE 0.9% 1,000 ML IV SCH ×2 (01:39→13:48)
[2017-02-01] MEDS: PANTOPRAZOLE IV 80 MG in SOD CHLORIDE 0.9% 100 ML IV SCH ×3 (01:39→23:00)
[2017-02-01 05:17] LABS: ADD SCAN DIFF NO
[2017-02-01 05:56] LABS: ABNORMAL IP MESSAGE 1; BASOPHILS % 0.2 % (0.0-2.0); EOSINOPHILS # 0.3 10^3/ul (0.0-0.5); EOSINOPHILS % 7.1 % (0.0-7.0); HEMATOCRIT 28.1 % (42.0-52.0); HEMOGLOBIN 9.1 g/dl (14.0-18.0); LYMPHOCYTES # 0.2 10^3/ul (0.8-2.9); LYMPHOCYTES % 4.6 % (15.0-51.0); MEAN CORPUSCULAR HGB CONC 32.4 g/dl (32.0-37.0); MEAN CORPUSCULAR VOLUME 95.6 fl (82.0-101.0); MEAN PLATELET VOLUME 12.6 fl (7.4-10.4); MONOCYTE # 0.2 10^3/ul (0.3-0.9); NEUTROPHIL # 3.6 10^3/ul (1.6-7.5); NEUTROPHILS % 82.6 % (39.0-77.0); PLATELET COUNT 108 10^3/UL (140-415); RED BLOOD COUNT 2.94 10^6/ul (4.70-6.10); RED CELL DISTRIBUTION WIDTH 15.9 % (11.5-14.5); WHITE BLOOD COUNT 4.4 10^3/ul (4.8-10.8)
[2017-02-01 06:07] LABS: CALCIUM 7.9 mg/dl (8.4-10.2); CREATININE 2.05 mg/dl (0.61-1.24); MAGNESIUM 1.8 mg/dl (1.7-2.5); PHOSPHORUS 6.8 mg/dl (2.5-4.9); POTASSIUM 3.5 mmol/L (3.5-5.1)
--- NOTE | 2017-02-01 07:34 | CONS ---
Date/Time of Note Date/Time of Note DATE: 02/01/17 TIME: 07:31 Assessment/Plan Assessment/Plan Additional Assessment/Plan Ventilator setting; AC of 16, tidal volume 500, PEEP of 5, 30% FiO2. Assessment recommendations; 1. Patient admitted for severe hematuria with interval improvement. Possibly underlying renal malignancy. 2. Right lower lobe pneumonia. 3. Thrombocytopenia. 4. Chronic renal insufficiency. 5. Chronic respiratory failure, patient remains ventilator dependent. 6. Multi-infarct dementia. Continue current supportive care. Patient can be transferred to telemetry unit or be [facility]. Consider stopping antibiotics. Consultation Date/Type/Reason Admit Date/Time Jan 26, 2017 at 01:35 Type of Consultation: Pulmonary/critical care 24 HR Interval Summary Free Text/Dictation Patient condition remains stable. Patient remains ventilator dependent due to chronic anoxic brain injury. Has remained hemodynamically stable. General exam; elderly male, unresponsive. On ventilator via tracheostomy. Currently in no distress. Exam/Review of Systems Vital Signs Vitals Vital Signs Date Time Temp Pulse Resp B/P Pulse Ox O2 Delivery O2 Flow Rate FiO2 02/01/17 06:00 73 23 111/74 99 02/01/17 05:27 30 02/01/17 03:31 98.2 02/01/17 00:00 Mechanical Ventilator Intake and Output 01/31/17 01/31/17 02/01/17 15:00 23:00 07:00 Intake Total 1205 ml 955 ml 3485 ml Output Total 1850 ml 520 ml 1350 ml Balance -645 ml 435 ml 2135 ml Exam HEENT exam; supple neck, no JVD. No lymphadenopathy. Midline trachea. No thyromegaly. Tracheostomy in place with clean insertion site. Patient is edentulous. Pupils are equal and reactive to light bilaterally. Chest exam; diminished breath sounds right lower lobe , clear breath sounds at rest of the lung martinez. S1-S2 audible, no murmurs. Regular rhythm. Abdomen examination; soft, G-tube in place. Bowel sounds. No organomegaly. Extremity examination of Patricio no peripheral edema. Next TURNING LATHE TENDER examination; patient remains unresponsive. Results Result Diagram: 02/01/17 0400 02/01/17 0400 Results 24 hrs Laboratory Tests Test 02/01/17 04:00 White Blood Count 4.4 #L Red Blood Count 2.94 L Hemoglobin 9.1 L Hematocrit 28.1 L Mean Corpuscular Volume 95.6 Mean Corpuscular Hemoglobin 31.0 Mean Corpuscular Hemoglobin Concent 32.4 Red Cell Distribution Width 15.9 H Platelet Count 108 L Mean Platelet Volume 12.6 H Neutrophils % 82.6 H Lymphocytes % 4.6 L Monocytes % 5.0 Eosinophils % 7.1 H Basophils % 0.2 Nucleated Red Blood Cells % 0.0 Neutrophils # 3.6 Lymphocytes # 0.2 L Monocytes # 0.2 L Eosinophils # 0.3 Basophils # 0.0 Nucleated Red Blood Cells # 0.0 Sodium Level 139 Potassium Level 3.5 Chloride Level 113 H Carbon Dioxide Level 18 L Anion Gap 12 Blood Urea Nitrogen 84 H Creatinine 2.05 H Glucose Level 69 L Calcium Level 7.9 L Phosphorus Level 6.8 H Magnesium Level 1.8 Medications Medications Current Medications Ondansetron HCl (Zofran Inj) 4 mg Q6H PRN IV NAUSEA AND/OR VOMITING; Start 07/04 at 00:00 Acetaminophen (Tylenol Liquid) 650 mg Q6H PRN PO PAIN LEVEL 1-3 OR FEVER; Start 01/26/17 at 00:00 Morphine Sulfate (morphine) 2 mg Q4H PRN IV PAIN LEVEL 7-10 Last administered on 01/29/17 03:41; Admin Dose 2 MG; Start 01/26/17 at 00:00 Lorazepam 1 mg 1 mg Q2H PRN IV ANXIETY; Start 01/26/17 at 00:00 Linezolid 300 ml @ 300 mls/hr Q12 IVPB Last administered on 01/31/17 21:01; Admin Dose 300 MLS/HR; Start 01/26/17 at 00:00 Meropenem 100 ml @ 200 mls/hr Q12 IVPB Last administered on 01/31/17 20:29; Admin Dose 200 MLS/HR; Start 01/26/17 at 09:00 Pantoprazole 80 mg/Sodium Chloride 100 ml @ 10 mls/hr Q10H IV Last administered on 02/01/17 01:39; Admin Dose 10 MLS/HR; Start 01/26/17 at 06:00 Norepinephrine/ Dextrose (Levophed/D5W) 500 ml @ 1.87 mls/hr TITRATE IV Last administered on 01/28/17 12:38; Admin Dose 9.37 MLS/HR; Start 01/26/17 at 06:00 Collagenase (Santyl) 1 applic DAILY TOP Last administered on 01/31/17 10:04; Admin Dose 1 APPLIC; Start 01/26/17 at 09:00 Hydrogen Peroxide (Hydrogen Peroxide) 1 applic QHS TOP Last administered on 20:32; Admin Dose 1 APPLIC; Start 01/26/17 at 21:00 Hydrogen Peroxide (Hydrogen Peroxide) 1 applic DAILY TOP Last administered on 10:00; Admin Dose 1 APPLIC; Start 01/27/17 at 09:00 Miscellaneous Information (Pending Santyl Order For Wound Care) This patient carrion... PRN PRN XX WOUND CARE; Start 01/27/17 at 11:00 Sodium Hypochlorite 1 applic 1 applic DAILY IRR Last administered on 01/31/17 10:05; Admin Dose 1 APPLIC; Start 01/28/17 at 21:00 Sodium Chloride 1,000 ml @ 75 mls/hr [id number] IV Last administered on 01:39; Admin Dose 75 MLS/HR; Start 01/29/17 at 07:30 Ciprofloxacin/ Dextrose (Cipro Ivpb) 100 ml @ 100 mls/hr Q12 IVPB Last administered on 01/31/17 21:00; Admin Dose 100 MLS/HR; Start 01/29/17 at 21:00 AARON HUFF 17, 2017 07:34
[2017-02-01] MEDS: SEVELAMER CARBONATE 0.8 GM PKT PO SCH ×3 (07:35→17:27)
[2017-02-01] MEDS: SODIUM HYPOCHLORITE 0.125% 473 ML BTL IRR SCH (08:27)
[2017-02-01] MEDS: MEROPENEM 1 GM/100 ML (PMX) 100 ML IVPB SCH ×2 (08:28→22:45)
[2017-02-01] MEDS: HYDROGEN PEROXIDE 118 ML TOP SCH ×2 (08:28→23:27)
[2017-02-01] MEDS: CIPROFLOXACIN 200 MG/D5W IVPB 100 ML IVPB SCH ×2 (08:32→22:45)
[2017-02-01] MEDS: LINEZOLID 600 MG/D5W (PMX) 300 ML IVPB SCH (09:09)
--- NOTE | 2017-02-01 09:13 | PN ---
Date/Time of Note Date/Time of Note DATE: 02/01/17 TIME: 09:10 Assessment/Plan VTE Prophylaxis VTE Prophylaxis Intervention: SCD's Lines/Catheters IV Catheter Type (from [facility] PICC Line Central line still needed: Yes Urinary Cath still in place: Yes Reason Cath still needed: other (indicate) Assessment/Plan Chief Complaint/Hosp Course 1. Sepsis with underlying septic shock secondary to healthcare-associated pneumonia and urinary tract infection along with bacteremia. Continue antibiotics as per infectious diseases. Titrate vasopressors to obtain optimal blood pressure control. Currently off pressors. 2. Ventilator-dependent respiratory failure. Continue mechanical ventilator management as per pulmonology. 3. Acute on chronic kidney injury. The patient is being followed by nephrology. Use nephrotoxic drugs with caution. 4. Normocytic normochromic anemia requiring blood transfusion. Etiology unclear. Stool for OB x1 negative. Status post multiple blood transfusions. Continue Protonix drip. 5. Gross hematuria. Etiology unclear. This has been resolving. Status post evaluation by urology. 6. Hypernatremia, most probably secondary to dehydration. Resolved with free water via G-tube. 7. Hyperkalemia. Resolved. 8. Dysphagia. Status post percutaneous endoscopic gastrostomy tube. 9. History of atrial fibrillation. Currently in sinus rhythm. The patient is not a candidate for any anticoagulation because of underlying severe anemia. 10. Multiple decubitus wounds. Continue local wound care. 11. Fluid, electrolytes and nutrition. Continue G-tube feedings. 12. Deep venous thrombosis prophylaxis. Bilateral sequential compression devices. 13. Gastrointestinal prophylaxis. On proton pump inhibitors. PLAN: Continue antibiotics as per infectious diseases. Case discussed with Dr. Silverio. Critical care time: 35 minutes. Problems: Subjective 24 Hr Interval Summary Free Text/Dictation No changes in status. Remains off pressors. Exam/Review of Systems Vital Signs Vitals Vital Signs Date Time Temp Pulse Resp B/P Pulse Ox O2 Delivery O2 Flow Rate FiO2 02/01/17 08:00 97.4 76 21 109/74 100 02/01/17 05:27 30 02/01/17 00:00 Mechanical Ventilator Intake and Output 01/31/17 01/31/17 02/01/17 15:00 23:00 07:00 Intake Total 1205 ml 955 ml 3485 ml Output Total 1850 ml 520 ml 1350 ml Balance -645 ml 435 ml 2135 ml Exam GENERAL: This is an elderly 71-year-old male patient lying in bed, mechanically ventilated, tracheostomy to ventilator. HEENT: Head normocephalic and atraumatic. The patient has multiple wounds on his scalp. Eyes: Anicteric sclerae. Conjunctivae clear. ENT: Nasal septum is midline. Oral mucosa is dry. Poor dentition. NECK: Tracheostomy in midline. RESPIRATORY: Bilaterally diminished breath sounds. Mechanically ventilated. CARDIAC: Regular rate and rhythm. S1 and S2 heard. ABDOMEN: Slightly distended. Left upper quadrant G-tube in place. GENITOURINARY: The patient has a Lopez catheter in place. No gross hematuria. EXTREMITIES: No cyanosis, no clubbing. Bilateral lower extremity pedal edema. Peripheral pulses are palpable. NEUROLOGIC: The patient is obtunded. Does not track movements. Moans with pain. SKIN: Multiple pressure ulcers. Results Result Diagram: 02/01/17 0400 02/01/17 0400 Results 24 hrs Laboratory Tests Test 02/01/17 04:00 White Blood Count 4.4 #L Red Blood Count 2.94 L Hemoglobin 9.1 L Hematocrit 28.1 L Mean Corpuscular Volume 95.6 Mean Corpuscular Hemoglobin 31.0 Mean Corpuscular Hemoglobin Concent 32.4 Red Cell Distribution Width 15.9 H Platelet Count 108 L Mean Platelet Volume 12.6 H Neutrophils % 82.6 H Lymphocytes % 4.6 L Monocytes % 5.0 Eosinophils % 7.1 H Basophils % 0.2 Nucleated Red Blood Cells % 0.0 Neutrophils # 3.6 Lymphocytes # 0.2 L Monocytes # 0.2 L Eosinophils # 0.3 Basophils # 0.0 Nucleated Red Blood Cells # 0.0 Sodium Level 139 Potassium Level 3.5 Chloride Level 113 H Carbon Dioxide Level 18 L Anion Gap 12 Blood Urea Nitrogen 84 H Creatinine 2.05 H Glucose Level 69 L Calcium Level 7.9 L Phosphorus Level 6.8 H Magnesium Level 1.8 Medications Medications Current Medications Ondansetron HCl (Zofran Inj) 4 mg Q6H PRN IV NAUSEA AND/OR VOMITING; Start 07/04 at 00:00 Acetaminophen (Tylenol Liquid) 650 mg Q6H PRN PO PAIN LEVEL 1-3 OR FEVER; Start 01/26/17 at 00:00 Morphine Sulfate (morphine) 2 mg Q4H PRN IV PAIN LEVEL 7-10 Last administered on 01/29/17 03:41; Admin Dose 2 MG; Start 01/26/17 at 00:00 Lorazepam 1 mg 1 mg Q2H PRN IV ANXIETY; Start 01/26/17 at 00:00 Linezolid 300 ml @ 300 mls/hr Q12 IVPB Last administered on 01/31/17 21:01; Admin Dose 300 MLS/HR; Start 01/26/17 at 00:00 Meropenem 100 ml @ 200 mls/hr Q12 IVPB Last administered on 02/01/17 08:28; Admin Dose 200 MLS/HR; Start 01/26/17 at 09:00 Pantoprazole 80 mg/Sodium Chloride 100 ml @ 10 mls/hr Q10H IV Last administered on 02/01/17 01:39; Admin Dose 10 MLS/HR; Start 01/26/17 at 06:00 Norepinephrine/ Dextrose (Levophed/D5W) 500 ml @ 1.87 mls/hr TITRATE IV Last administered on 01/28/17 12:38; Admin Dose 9.37 MLS/HR; Start 01/26/17 at 06:00 Collagenase (Santyl) 1 applic DAILY TOP Last administered on 01/31/17 10:04; Admin Dose 1 APPLIC; Start 01/26/17 at 09:00 Hydrogen Peroxide (Hydrogen Peroxide) 1 applic QHS TOP Last administered on 20:32; Admin Dose 1 APPLIC; Start 01/26/17 at 21:00 Hydrogen Peroxide (Hydrogen Peroxide) 1 applic DAILY TOP Last administered on 08:28; Admin Dose 1 APPLIC; Start 01/27/17 at 09:00 Miscellaneous Information (Pending Santyl Order For Wound Care) This patient carrion... PRN PRN XX WOUND CARE; Start 01/27/17 at 11:00 Sodium Hypochlorite 1 applic 1 applic DAILY IRR Last administered on 02/01/17 08:27; Admin Dose 1 APPLIC; Start 01/28/17 at 21:00 Sodium Chloride 1,000 ml @ 75 mls/hr [id number] IV Last administered on 01:39; Admin Dose 75 MLS/HR; Start 01/29/17 at 07:30 Ciprofloxacin/ Dextrose (Cipro Ivpb) 100 ml @ 100 mls/hr Q12 IVPB Last administered on 02/01/17t 08:32; Admin Dose 100 MLS/HR; Start 01/29/17 at 21:00 JULIAN EASON NP Feb 01, 2017 09:13
--- NOTE | 2017-02-01 09:24 | CONS ---
Date/Time of Note Date/Time of Note DATE: 02/01/17 TIME: 09:22 Consult Date/Type/Reason Admit Date/Time Jan 26, 2017 at 01:35 Initial Consult Date 01/27/17 Type of Consultation: neph Subjective The patient is stable. off pressors. continues good uo. poc reviewed with dr. abarca. No other acute events noted overnight. No hemoptysis, hematemesis or hematochezia. OBJECTIVE: HEENT: Head is normocephalic. NECK: Supple. HEART: Regular rate. LUNGS: Showed diminished breath sounds at the base. ABDOMEN: Soft, nontender to palpation. No rebound or guarding. EXTREMITIES: Negative for clubbing or cyanosis. No edema. Positive wounds. DERMATOLOGIC: No rashes. MUSCULOSKELETAL: Have no joint effusion. NEUROLOGIC: No change in exam. MEDICATIONS: The patient's medications have been reviewed. Objective Vital Signs Date Time Temp Pulse Resp B/P Pulse Ox O2 Delivery O2 Flow Rate FiO2 02/01/17 08:00 97.4 76 21 109/74 100 02/01/17 05:27 30 02/01/17 00:00 Mechanical Ventilator Intake and Output 01/31/17 01/31/17 02/01/17 15:00 23:00 07:00 Intake Total 1205 ml 955 ml 3485 ml Output Total 1850 ml 520 ml 1350 ml Balance -645 ml 435 ml 2135 ml Results/Medications Result Diagram: 02/01/17 0400 02/01/17 0400 Results 24 hrs Laboratory Tests Test 02/01/17 04:00 White Blood Count 4.4 #L Red Blood Count 2.94 L Hemoglobin 9.1 L Hematocrit 28.1 L Mean Corpuscular Volume 95.6 Mean Corpuscular Hemoglobin 31.0 Mean Corpuscular Hemoglobin Concent 32.4 Red Cell Distribution Width 15.9 H Platelet Count 108 L Mean Platelet Volume 12.6 H Neutrophils % 82.6 H Lymphocytes % 4.6 L Monocytes % 5.0 Eosinophils % 7.1 H Basophils % 0.2 Nucleated Red Blood Cells % 0.0 Neutrophils # 3.6 Lymphocytes # 0.2 L Monocytes # 0.2 L Eosinophils # 0.3 Basophils # 0.0 Nucleated Red Blood Cells # 0.0 Sodium Level 139 Potassium Level 3.5 Chloride Level 113 H Carbon Dioxide Level 18 L Anion Gap 12 Blood Urea Nitrogen 84 H Creatinine 2.05 H Glucose Level 69 L Calcium Level 7.9 L Phosphorus Level 6.8 H Magnesium Level 1.8 Medications Current Medications Ondansetron HCl (Zofran Inj) 4 mg Q6H PRN IV NAUSEA AND/OR VOMITING; Start 07/04 at 00:00 Acetaminophen (Tylenol Liquid) 650 mg Q6H PRN PO PAIN LEVEL 1-3 OR FEVER; Start 01/26/17 at 00:00 Morphine Sulfate (morphine) 2 mg Q4H PRN IV PAIN LEVEL 7-10 Last administered on 01/29/17 03:41; Admin Dose 2 MG; Start 01/26/17 at 00:00 Lorazepam 1 mg 1 mg Q2H PRN IV ANXIETY; Start 01/26/17 at 00:00 Linezolid 300 ml @ 300 mls/hr Q12 IVPB Last administered on 02/01/17 09:09; Admin Dose 300 MLS/HR; Start 01/26/17 at 00:00 Meropenem 100 ml @ 200 mls/hr Q12 IVPB Last administered on 02/01/17 08:28; Admin Dose 200 MLS/HR; Start 01/26/17 at 09:00 Pantoprazole 80 mg/Sodium Chloride 100 ml @ 10 mls/hr Q10H IV Last administered on 02/01/17 01:39; Admin Dose 10 MLS/HR; Start 01/26/17 at 06:00 Norepinephrine/ Dextrose (Levophed/D5W) 500 ml @ 1.87 mls/hr TITRATE IV Last administered on 01/28/17 12:38; Admin Dose 9.37 MLS/HR; Start 01/26/17 at 06:00 Collagenase (Santyl) 1 applic DAILY TOP Last administered on 01/31/17 10:04; Admin Dose 1 APPLIC; Start 01/26/17 at 09:00 Hydrogen Peroxide (Hydrogen Peroxide) 1 applic QHS TOP Last administered on 20:32; Admin Dose 1 APPLIC; Start 01/26/17 at 21:00 Hydrogen Peroxide (Hydrogen Peroxide) 1 applic DAILY TOP Last administered on 08:28; Admin Dose 1 APPLIC; Start 01/27/17 at 09:00 Miscellaneous Information (Pending Santyl Order For Wound Care) This patient carrion... PRN PRN XX WOUND CARE; Start 01/27/17 at 11:00 Sodium Hypochlorite 1 applic 1 applic DAILY IRR Last administered on 02/01/17 08:27; Admin Dose 1 APPLIC; Start 01/28/17 at 21:00 Sodium Chloride 1,000 ml @ 75 mls/hr [id number] IV Last administered on 01:39; Admin Dose 75 MLS/HR; Start 01/29/17 at 07:30 Ciprofloxacin/ Dextrose (Cipro Ivpb) 100 ml @ 100 mls/hr Q12 IVPB Last administered on 02/01/17 08:32; Admin Dose 100 MLS/HR; Start 01/29/17 at 21:00 Assessment/Plan Chief Complaint/Hosp Course ASSESSMENT AND PLAN: 1. Nonoliguric acute kidney injury on top of chronic kidney disease stage 4, with a baseline creatinine around 1.5 to 2.5 mg/dL. Etiology of acute kidney injury is secondary to acute tubular necrosis with obstructive uropathy. The patient has been evaluated by urology. No further plans for intervention at this time. The patient's renal function has slowly been improving with supportive care and IV hydration. At this point, continue the current treatment plan, renally dose all medications, avoid nephrotoxins. Will follow up with urology for further recommendations. No immediate need for renal replacement therapy at this time. 2. Gross hematuria. Etiology is unclear, possibly from renal cell mass versus other. Hematuria has improved. Continue flushes, follow up with urology. 3. Mineral bone disorder. Continue to monitor calcium and phosphorus levels. 4. Anemia. Continue to monitor hemoglobin and hematocrit levels. Continue blood transfusions. Will defer in the setting of possible renal cell carcinoma. 5. Right renal mass, with possible renal cell carcinoma. The patient has been evaluated by urology. No plans for intervention at this time. Will monitor. 6. Ventilatory-dependent respiratory failure. Vent settings have been reviewed. ABG has been reviewed. Continue to monitor. Follow up with pulmonary. 7. Dysphagia. Status post PEG. Would recommend to start tube feeding. Defer to primary team. 8. Chronic encephalopathy. Etiology is multifactorial. Continue to monitor. No change. 9. Sepsis secondary to healthcare-associated pneumonia and urinary tract infection. Continue the current antibiotic regimen. 10. Esophagitis and gastritis. Continue PPI. 11. Diabetes. Continue Accu-Cheks and insulin sliding scale. 12. Decubitus wound. Continue wound care. Problems: ENOC CORTEZ MD Feb 01, 2017 09:24
[2017-02-01] MEDS ORDERED: INSULIN ASPART [NOVOLOG] 3 ML PEN SC SCH (10:00)
--- NOTE | 2017-02-01 10:14 | CONS ---
Date/Time of Note Date/Time of Note DATE: 02/01/17 TIME: 09:45 Assessment/Plan Assessment/Plan Chief Complaint/Hosp Course ID PROGRESS NOTE TOTAL ABX DAY #7=> Zyvox, Cipro, + Meropenem. CASE REVIEWED * 71 yo M w/MMP including prior SDH, chronic debility/VDRF w/Trach & Peg, known to Dr. Tanner's ID team consultants w/hx of recurrent admissions for sepsis. 24H INTERVAL SUMMARY * Non-communicative,Frail, thin, chronic debilitated 71 yo M, Vented, somnolent * Weaned from pressors, afebrile * Repeat BCx 01/29/17 (-) 02/01/17 0400 02/01/17 0400 PHYSICAL EXAMINATION: GENERAL: 71 yo M w/chronic encephalopathy, VDRF HEENT: Head DSG, NGT secure NECK: Trached-> Vented CHEST: Rise symmetrical= Vented HEART: RRR ABDOMEN: Soft, peg, abd wall healing = Colostomy bag EXTREMITIES: Warm SKIN: Decubs, unstageable ID ASSESSMENT: 71 yo M w/chronic debility 2/2 multiple medical problems including prior SDH/ encephalopathy re-admitted with: 1. Severe sepsis on admission w/polymicrobial bacteremia, hypotension,SIRS-> TMax 99.5, leukopenia due to #2 #3 * 01/25/17 BCx (+) Organism 1 PROTEUS MIRABILIS + Organism 2 COAGULASE NEGATIVE STAPH 2. Complicated UTI + Hematuria * 01/25/17 Urine Cx: (+) URINE CULTURE Final Organism 1 PROTEUS MIRABILIS COLONY COUNT >100,000 CFU/ml 3. Symptomatic anemia w/hypovolemia, shock -> Hx of GIB + Hematuria 4. Pancytopenia ? Sepsis, medications, ? etiology 5. HCAP @ SNF=> Aspiration PNA = bilateral w/R>L consolidations 01/25/17 CXR * 01/25/17 Respiratory Cx: RESPIRATORY CULTURE Final Organism 1 KLEB PNEUMONIAE CARBAPENEMASE QUANTITY 1+ . MULTI DRUG RESISTANT ORGANISM Organism 2 PSEUDOMONAS AERUGINOSA QUANTITY 1+ 6. Acute renal failure/CKD * Etiology of acute kidney injury is secondary to acute tubular necrosis with obstructive uropathy. * Right kidney mass of unknown significance 7. 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 GERD w/ prior EDG 12/10/16 (+)distal esophagitis, duodenitis, gastric ulcers, dysphagia 9. Hx of unstageable sacral wound * Prior wound Cx grew: MRSA, VRE, KP, GNR Proteus 10. Hx of ABD wall cellulitis prior admission due to GT leak 11. Hx of cardiac arrhythmia 13: Hx of MRSA, VRE, PSAR MDRO sepsis (-)MRSA Nares Screen INVASIVES: * PICC, Trach, PEG, FC CURRENT ABX: TOTAL ABX DAY #7 => Zyvox, Cipro, + Meropenem. ID RECOMMENDATIONS: 1. Continue current ABX 4. Avoid renal toxic meds . Problems: Consultation Date/Type/Reason Admit Date/Time Jan 26, 2017 at 01:35 Initial Consult Date 01/27/17 Type of Consultation: ID Exam/Review of Systems Vital Signs Vitals Vital Signs Date Time Temp Pulse Resp B/P Pulse Ox O2 Delivery O2 Flow Rate FiO2 02/01/17 08:30 30 02/01/17 08:00 78 02/01/17 08:00 97.4 21 109/74 100 02/01/17 00:00 Mechanical Ventilator Intake and Output 01/31/17 01/31/17 02/01/17 15:00 23:00 07:00 Intake Total 1205 ml 955 ml 3485 ml Output Total 1850 ml 520 ml 1350 ml Balance -645 ml 435 ml 2135 ml Results Result Diagram: 02/01/17 0400 02/01/17 0400 Results 24 hrs Laboratory Tests Test 02/01/17 04:00 White Blood Count 4.4 #L Red Blood Count 2.94 L Hemoglobin 9.1 L Hematocrit 28.1 L Mean Corpuscular Volume 95.6 Mean Corpuscular Hemoglobin 31.0 Mean Corpuscular Hemoglobin Concent 32.4 Red Cell Distribution Width 15.9 H Platelet Count 108 L Mean Platelet Volume 12.6 H Neutrophils % 82.6 H Lymphocytes % 4.6 L Monocytes % 5.0 Eosinophils % 7.1 H Basophils % 0.2 Nucleated Red Blood Cells % 0.0 Neutrophils # 3.6 Lymphocytes # 0.2 L Monocytes # 0.2 L Eosinophils # 0.3 Basophils # 0.0 Nucleated Red Blood Cells # 0.0 Sodium Level 139 Potassium Level 3.5 Chloride Level 113 H Carbon Dioxide Level 18 L Anion Gap 12 Blood Urea Nitrogen 84 H Creatinine 2.05 H Glucose Level 69 L Calcium Level 7.9 L Phosphorus Level 6.8 H Magnesium Level 1.8 Medications Medications Current Medications Ondansetron HCl (Zofran Inj) 4 mg Q6H PRN IV NAUSEA AND/OR VOMITING; Start 07/04 at 00:00 Acetaminophen (Tylenol Liquid) 650 mg Q6H PRN PO PAIN LEVEL 1-3 OR FEVER; Start 01/26/17 at 00:00 Morphine Sulfate (morphine) 2 mg Q4H PRN IV PAIN LEVEL 7-10 Last administered on 01/29/17 03:41; Admin Dose 2 MG; Start 01/26/17 at 00:00 Lorazepam 1 mg 1 mg Q2H PRN IV ANXIETY; Start 01/26/17 at 00:00 Linezolid 300 ml @ 300 mls/hr Q12 IVPB Last administered on 02/01/17 09:09; Admin Dose 300 MLS/HR; Start 01/26/17 at 00:00 Meropenem 100 ml @ 200 mls/hr Q12 IVPB Last administered on 02/01/17 08:28; Admin Dose 200 MLS/HR; Start 01/26/17 at 09:00 Pantoprazole 80 mg/Sodium Chloride 100 ml @ 10 mls/hr Q10H IV Last administered on 02/01/17 01:39; Admin Dose 10 MLS/HR; Start 01/26/17 at 06:00 Norepinephrine/ Dextrose (Levophed/D5W) 500 ml @ 1.87 mls/hr TITRATE IV Last administered on 01/28/17 12:38; Admin Dose 9.37 MLS/HR; Start 01/26/17 at 06:00 Collagenase (Santyl) 1 applic DAILY TOP Last administered on 01/31/17 10:04; Admin Dose 1 APPLIC; Start 01/26/17 at 09:00 Hydrogen Peroxide (Hydrogen Peroxide) 1 applic QHS TOP Last administered on 20:32; Admin Dose 1 APPLIC; Start 01/26/17 at 21:00 Hydrogen Peroxide (Hydrogen Peroxide) 1 applic DAILY TOP Last administered on 08:28; Admin Dose 1 APPLIC; Start 01/27/17 at 09:00 Miscellaneous Information (Pending Santyl Order For Wound Care) This patient carrion... PRN PRN XX WOUND CARE; Start 01/27/17 at 11:00 Sodium Hypochlorite 1 applic 1 applic DAILY IRR Last administered on 02/01/17 08:27; Admin Dose 1 APPLIC; Start 01/28/17 at 21:00 Sodium Chloride 1,000 ml @ 75 mls/hr [id number] IV Last administered on 01:39; Admin Dose 75 MLS/HR; Start 01/29/17 at 07:30 Ciprofloxacin/ Dextrose (Cipro Ivpb) 100 ml @ 100 mls/hr Q12 IVPB Last administered on 02/01/17 08:32; Admin Dose 100 MLS/HR; Start 01/29/17 at 21:00 ERIC LIN NP Feb 01, 2017 09:55
[2017-02-01] MEDS ORDERED: DEXTROSE 50% 50 ML SYRINGE IV PRN ×2 (10:30)
[2017-02-01] MEDS ORDERED: GLUCOSE GEL 15 GRAM TUBE PO PRN ×2 (10:30)
[2017-02-01] MEDS ORDERED: GLUCOSE GEL 15 GRAM TUBE BUCCAL PRN (10:30)
[2017-02-01] MEDS ORDERED: GLUCAGON 1 MG INJ IM PRN (10:30)
[2017-02-01] MEDS: Insulin NOVOLOG SS MILD Algorithm (NPO/TPN/ENTERAL FEEDS) SC SCH ×2 (11:27→17:27)
[2017-02-01] MEDS ORDERED: SOD CHLORIDE 0.9% 250 ML IV ONE ×3 (13:30→20:00)
[2017-02-02] VITALS (27 sets, daily range): BP systolic 101–136; BP diastolic 63–94; PULSE 75–113; RESP 15–28
[2017-02-02 01:29] LABS: ADD SCAN DIFF NO
[2017-02-02 01:32] LABS: ABNORMAL IP MESSAGE 1; EOSINOPHILS # 0.3 10^3/ul (0.0-0.5); EOSINOPHILS % 7.6 % (0.0-7.0); HEMATOCRIT 25.8 % (42.0-52.0); HEMOGLOBIN 8.5 g/dl (14.0-18.0); LYMPHOCYTES # 0.2 10^3/ul (0.8-2.9); LYMPHOCYTES % 5.1 % (15.0-51.0); MEAN CORPUSCULAR HEMOGLOBIN 31.6 pg (29.0-33.0); MEAN CORPUSCULAR HGB CONC 32.9 g/dl (32.0-37.0); MEAN CORPUSCULAR VOLUME 95.9 fl (82.0-101.0); MEAN PLATELET VOLUME 11.8 fl (7.4-10.4); MONOCYTE # 0.3 10^3/ul (0.3-0.9); NEUTROPHIL # 3.5 10^3/ul (1.6-7.5); NEUTROPHILS % 80.8 % (39.0-77.0); PLATELET COUNT 103 10^3/UL (140-415); RED BLOOD COUNT 2.69 10^6/ul (4.70-6.10); RED CELL DISTRIBUTION WIDTH 15.9 % (11.5-14.5); WHITE BLOOD COUNT 4.4 10^3/ul (4.8-10.8)
[2017-02-02] MEDS: LINEZOLID 600 MG/D5W (PMX) 300 ML IVPB SCH ×3 (02:20→21:27)
[2017-02-02 02:48] LABS: CALCIUM 7.7 mg/dl (8.4-10.2); CREATININE 1.77 mg/dl (0.61-1.24); MAGNESIUM 1.8 mg/dl (1.7-2.5); POTASSIUM 3.1 mmol/L (3.5-5.1)
[2017-02-02] MEDS ORDERED: POTASSIUM CHLORIDE 250 ML IVPB ONE ×2 (04:00→05:30)
[2017-02-02] MEDS: SOD CHLORIDE 0.9% 1,000 ML IV SCH ×2 (04:50→18:01)
[2017-02-02] MEDS ORDERED: MAGNESIUM SULFATE 2 GM/50 ML 50 ML IVPB ONE (05:30)
[2017-02-02 07:46] LABS: ADD SCAN DIFF NO
[2017-02-02 07:49] LABS: ABNORMAL IP MESSAGE 1; BASOPHILS % 0.2 % (0.0-2.0); EOSINOPHILS # 0.2 10^3/ul (0.0-0.5); EOSINOPHILS % 4.5 % (0.0-7.0); HEMATOCRIT 27.1 % (42.0-52.0); HEMOGLOBIN 8.5 g/dl (14.0-18.0); LYMPHOCYTES # 0.2 10^3/ul (0.8-2.9); LYMPHOCYTES % 4.1 % (15.0-51.0); MEAN CORPUSCULAR HGB CONC 31.4 g/dl (32.0-37.0); MEAN CORPUSCULAR VOLUME 98.9 fl (82.0-101.0); MEAN PLATELET VOLUME 12.2 fl (7.4-10.4); MONOCYTE # 0.3 10^3/ul (0.3-0.9); MONOCYTES % 5.6 % (0.0-11.0); NEUTROPHIL # 4.4 10^3/ul (1.6-7.5); NEUTROPHILS % 85.2 % (39.0-77.0); PLATELET COUNT 98 10^3/UL (140-415); RED BLOOD COUNT 2.74 10^6/ul (4.70-6.10); RED CELL DISTRIBUTION WIDTH 16.3 % (11.5-14.5); WHITE BLOOD COUNT 5.2 10^3/ul (4.8-10.8)
[2017-02-02] MEDS: Insulin NOVOLOG SS MILD Algorithm (NPO/TPN/ENTERAL FEEDS) SC SCH ×4 (09:12→18:00)
[2017-02-02] MEDS: HYDROGEN PEROXIDE 118 ML TOP SCH ×2 (09:13→21:56)
[2017-02-02] MEDS: SODIUM HYPOCHLORITE 0.125% 473 ML BTL IRR SCH (09:13)
[2017-02-02] MEDS: SEVELAMER CARBONATE 0.8 GM PKT PO SCH ×3 (09:13→18:01)
--- NOTE | 2017-02-02 09:22 | CONS ---
Date/Time of Note Date/Time of Note DATE: 02/02/17 TIME: 09:21 Consult Date/Type/Reason Admit Date/Time Jan 26, 2017 at 01:35 Initial Consult Date 01/27/17 Type of Consultation: neph Subjective The patient is stable. off pressors. continues good uo. poc reviewed with dr. grullon No other acute events noted overnight. No hemoptysis, hematemesis or hematochezia. poc reviewed with dr. south. OBJECTIVE: HEENT: Head is normocephalic. NECK: Supple. HEART: Regular rate. LUNGS: Showed diminished breath sounds at the base. ABDOMEN: Soft, nontender to palpation. No rebound or guarding. EXTREMITIES: Negative for clubbing or cyanosis. No edema. Positive wounds. DERMATOLOGIC: No rashes. MUSCULOSKELETAL: Have no joint effusion. NEUROLOGIC: No change in exam. Objective Vital Signs Date Time Temp Pulse Resp B/P Pulse Ox O2 Delivery O2 Flow Rate FiO2 02/02/17 07:20 92 24 97 30 02/02/17 07:13 98.4 108/63 02/01/17 00:00 Mechanical Ventilator Intake and Output 02/01/17 02/01/17 02/02/17 15:00 23:00 07:00 Intake Total 2200 ml 340 ml Output Total 1000 ml Balance 1200 ml 340 ml Results/Medications Result Diagram: 02/02/17 0643 02/02/17 0120 Results 24 hrs Laboratory Tests Test 02/01/17 11:26 02/02/17 00:23 02/02/17 01:20 02/02/17 06:43 Bedside Glucose 97 109 White Blood Count 4.4 L 5.2 Red Blood Count 2.69 L 2.74 L Hemoglobin 8.5 L 8.5 L Hematocrit 25.8 L 27.1 L Mean Corpuscular Volume 95.9 98.9 Mean Corpuscular Hemoglobin 31.6 31.0 Mean Corpuscular Hemoglobin Concent 32.9 31.4 L Red Cell Distribution Width 15.9 H 16.3 H Platelet Count 103 L 98 L Mean Platelet Volume 11.8 H 12.2 H Neutrophils % 80.8 H 85.2 H Lymphocytes % 5.1 L 4.1 L Monocytes % 6.0 5.6 Eosinophils % 7.6 H 4.5 Basophils % 0.0 0.2 Nucleated Red Blood Cells % 0.0 0.0 Neutrophils # 3.5 4.4 Lymphocytes # 0.2 L 0.2 L Monocytes # 0.3 0.3 Eosinophils # 0.3 0.2 Basophils # 0.0 0.0 Nucleated Red Blood Cells # 0.0 0.0 Sodium Level 140 Potassium Level 3.1 L Chloride Level 116 H Carbon Dioxide Level 18 L Anion Gap 9 Blood Urea Nitrogen 75 H Creatinine 1.77 H Glucose Level 81 Calcium Level 7.7 L Magnesium Level 1.8 1.7 Phosphorus Level 5.9 H Test 02/02/17 09:11 Bedside Glucose 92 Medications Current Medications Ondansetron HCl (Zofran Inj) 4 mg Q6H PRN IV NAUSEA AND/OR VOMITING; Start 07/04 at 00:00 Acetaminophen (Tylenol Liquid) 650 mg Q6H PRN PO PAIN LEVEL 1-3 OR FEVER; Start 01/26/17 at 00:00 Morphine Sulfate (morphine) 2 mg Q4H PRN IV PAIN LEVEL 7-10 Last administered on 01/29/17 03:41; Admin Dose 2 MG; Start 01/26/17 at 00:00 Lorazepam 1 mg 1 mg Q2H PRN IV ANXIETY; Start 01/26/17 at 00:00 Linezolid 300 ml @ 300 mls/hr Q12 IVPB Last administered on 02/02/17 02:20; Admin Dose 300 MLS/HR; Start 01/26/17 at 00:00 Meropenem 100 ml @ 200 mls/hr Q12 IVPB Last administered on 02/01/17 22:45; Admin Dose 200 MLS/HR; Start 01/26/17 at 09:00 Pantoprazole/ Sodium Chloride (Protonix Iv/NS) 100 ml @ 10 mls/hr Q10H IV Last administered on 02/01/17 23:00; Admin Dose 10 MLS/HR; Start 01/26/17 at 06 :00 Collagenase (Santyl) 1 applic DAILY TOP Last administered on 01/31/17 10:04; Admin Dose 1 APPLIC; Start 01/26/17 at 09:00 Hydrogen Peroxide (Hydrogen Peroxide) 1 applic QHS TOP Last administered on 23:27; Admin Dose 1 APPLIC; Start 01/26/17 at 21:00 Hydrogen Peroxide (Hydrogen Peroxide) 1 applic DAILY TOP Last administered on 09:13; Admin Dose 1 APPLIC; Start 01/27/17 at 09:00 Miscellaneous Information (Pending [facility] Order For Wound Care) This patient carrion... PRN PRN XX WOUND CARE; Start 01/27/17 at 11:00 Sodium Hypochlorite 1 applic 1 applic DAILY IRR Last administered on 02/02/17 09:13; Admin Dose 1 APPLIC; Start 01/28/17 at 21:00 Sodium Chloride 1,000 ml @ 75 mls/hr [id number] IV Last administered on 13:48; Admin Dose 75 MLS/HR; Start 01/29/17 at 07:30 Ciprofloxacin/ Dextrose (Cipro Ivpb) 100 ml @ 100 mls/hr Q12 IVPB Last administered on 02/01/17 22:45; Admin Dose 100 MLS/HR; Start 01/29/17 at 21:00 Insulin Aspart (Novolog Insulin Pen) (Adult SC Insulin - Mild Algorithm)... Q6 SC ; Start 02/01/17 at 11:30 Miscellaneous Information 1 ea NOTE XX ; Start 02/01/17 at 10:30 Glucose (Glutose) 15 gm Q15M PRN PO DECREASED GLUCOSE; Start 02/01/17 at 10:30 Glucose (Glutose) 22.5 gm Q15M PRN PO DECREASED GLUCOSE; Start 02/01/17 at 10: 30 Dextrose (D50w Syringe) 25 ml Q15M PRN IV DECREASED GLUCOSE; Start 02/01/17 at 10:30 Dextrose (D50w Syringe) 50 ml Q15M PRN IV DECREASED GLUCOSE; Start 02/01/17 at 10:30 Glucagon (Glucagen) 1 mg Q15M PRN IM DECREASED GLUCOSE; Start 02/01/17 at 10:30 Glucose 15 gm 15 gm Q15M PRN BUCCAL DECREASED GLUCOSE; Start 02/01/17 at 10:30 Potassium Chloride (KCl 40 MEQ/250 ML NS) 250 ml @ 62.5 mls/hr ONCE ONCE IVPB Last administered on 02/02/17 08:54; Admin Dose 62.5 MLS/HR; Start 02/02/17 at 05:30; Stop 02/02/17 at 09:29 Assessment/Plan Chief Complaint/Hosp Course ASSESSMENT AND PLAN: 1. Nonoliguric acute kidney injury on top of chronic kidney disease stage 4, with a baseline creatinine around 1.5 to 2.5 mg/dL. Etiology of acute kidney injury is secondary to acute tubular necrosis with obstructive uropathy. The patient has been evaluated by urology. No further plans for intervention at this time. The patient's renal function has slowly been improving with supportive care and IV hydration. At this point, continue the current treatment plan, renally dose all medications, avoid nephrotoxins. Will follow up with urology for further recommendations. No immediate need for renal replacement therapy at this time. watch for diuretic phase of phong with electrolyte wasting. replace potassium. 2. Gross hematuria. Etiology is unclear, possibly from renal cell mass versus other. Hematuria has improved. Continue flushes, follow up with urology. 3. Mineral bone disorder. Continue to monitor calcium and phosphorus levels. 4. Anemia. Continue to monitor hemoglobin and hematocrit levels. Continue blood transfusions. Will defer in the setting of possible renal cell carcinoma. 5. Right renal mass, with possible renal cell carcinoma. The patient has been evaluated by urology. No plans for intervention at this time. Will monitor. 6. Ventilatory-dependent respiratory failure. Vent settings have been reviewed. ABG has been reviewed. Continue to monitor. Follow up with pulmonary. 7. Dysphagia. Status post PEG. Would recommend to start tube feeding. Defer to primary team. 8. Chronic encephalopathy. Etiology is multifactorial. Continue to monitor. No change. 9. Sepsis secondary to healthcare-associated pneumonia and urinary tract infection. Continue the current antibiotic regimen. 10. Esophagitis and gastritis. Continue PPI. 11. Diabetes. Continue Accu-Cheks and insulin sliding scale. 12. Decubitus wound. Continue wound care. Problems: ENOC CORTEZ MD Feb 02, 2017 09:22
[2017-02-02] MEDS: PANTOPRAZOLE IV 80 MG in SOD CHLORIDE 0.9% 100 ML IV SCH ×2 (10:48→18:05)
[2017-02-02] MEDS: CIPROFLOXACIN 200 MG/D5W IVPB 100 ML IVPB SCH ×2 (10:53→21:24)
[2017-02-02] MEDS: MEROPENEM 1 GM/100 ML (PMX) 100 ML IVPB SCH ×2 (10:54→21:30)
[2017-02-02 11:11] LABS: CALCIUM 7.9 mg/dl (8.4-10.2); CREATININE 1.73 mg/dl (0.61-1.24); POTASSIUM 4.2 mmol/L (3.5-5.1)
[2017-02-02 11:27] LABS: MAGNESIUM 1.8 mg/dl (1.7-2.5); PHOSPHORUS 6.1 mg/dl (2.5-4.9)
--- NOTE | 2017-02-02 13:21 | RADRPT ---
PROCEDURE: XR Abdomen. CLINICAL INDICATION: Emesis. TECHNIQUE: AP abdomen x-ray. COMPARISON: There are no similar studies submitted for comparison. FINDINGS: The stomach is distended. No distended loops of bowel or fluid levels are noted.There is no definite evidence of bowel obstruc tion. There is air noted within the colon. There are no definite densities overlying the kidneys an d ureters. The osseous structures are intact. IMPRESSION: No definite evidence of bowel obstruction. Distended stomach. Further findings as detailed above. RPTAT: PP .Mustapha Aparicio MD, Date Time Electronically viewed and signed by .Mustapha Aparicio MD, on 02/02/2017 13:21 .F/
--- NOTE | 2017-02-02 13:43 | CONS ---
Date/Time of Note Date/Time of Note DATE: 02/02/17 TIME: 13:38 Assessment/Plan Assessment/Plan Chief Complaint/Hosp Course SUBJECTIVE: No acute events overnight. No fever. No acute distress. MICROBIOLOGY: Blood cultures growing Staph and Proteus mirabilis. Urine culture grew Proteus mirabilis. Tracheal aspirate growing multidrug resistant Pseudomonas and Klebsiella pneumoniae susceptible to Cipro and Levaquin. INDWELLINGS: Trach, PEG, Lopez, and PICC line placed yesterday. ANTIMICROBIALS: Zyvox, Cipro and Meropenem. OBJECTIVE: GENERAL: This is a chronically ill-appearing, elderly man who is in no distress. HEENT: Head atraumatic, normocephalic. Sclerae anicteric. Buccal mucosa dry. NECK: Supple. Tracheostomy present. CHEST: Rise symmetrical. Breath sounds diminished. HEART: S1, S2. ABDOMEN: Soft, bowel tones present. EXTREMITIES: With trace edema. ASSESSMENT: 1. Severe sepsis with shock==> off pressors. 2. Polymicrobial bacteremia 3. Urinary tract infection. 4. Unstageable sacral decubitus. 5. Acute renal failure. 6. Right upper kidney mass suspicious for malignancy. 7. HCAP. PLAN: Clinically unchanged. Stable. Off Pressors. Repeat bld cx negative. continue abx, local wound care, Monitor renal function. Avoid nephrotoxic drugs. Monitor Labs. Prognosis poor. staff. Problems: Consultation Date/Type/Reason Admit Date/Time Jan 26, 2017 at 01:35 Initial Consult Date 01/27/17 Type of Consultation: ID Exam/Review of Systems Vital Signs Vitals Vital Signs Date Time Temp Pulse Resp B/P Pulse Ox O2 Delivery O2 Flow Rate FiO2 02/02/17 11:45 98.5 85 20 102/68 99 02/02/17 11:05 30 02/01/17 00:00 Mechanical Ventilator Intake and Output 02/01/17 02/01/17 02/02/17 15:00 23:00 07:00 Intake Total 2200 ml 340 ml Output Total 1000 ml Balance 1200 ml 340 ml Results Result Diagram: 02/02/17 0643 02/02/17 0938 Results 24 hrs Laboratory Tests Test 02/02/17 00:23 02/02/17 01:20 02/02/17 06:43 02/02/17 09:11 Bedside Glucose 109 92 White Blood Count 4.4 L 5.2 Red Blood Count 2.69 L 2.74 L Hemoglobin 8.5 L 8.5 L Hematocrit 25.8 L 27.1 L Mean Corpuscular Volume 95.9 98.9 Mean Corpuscular Hemoglobin 31.6 31.0 Mean Corpuscular Hemoglobin Concent 32.9 31.4 L Red Cell Distribution Width 15.9 H 16.3 H Platelet Count 103 L 98 L Mean Platelet Volume 11.8 H 12.2 H Neutrophils % 80.8 H 85.2 H Lymphocytes % 5.1 L 4.1 L Monocytes % 6.0 5.6 Eosinophils % 7.6 H 4.5 Basophils % 0.0 0.2 Nucleated Red Blood Cells % 0.0 0.0 Neutrophils # 3.5 4.4 Lymphocytes # 0.2 L 0.2 L Monocytes # 0.3 0.3 Eosinophils # 0.3 0.2 Basophils # 0.0 0.0 Nucleated Red Blood Cells # 0.0 0.0 Sodium Level 140 Potassium Level 3.1 L Chloride Level 116 H Carbon Dioxide Level 18 L Anion Gap 9 Blood Urea Nitrogen 75 H Creatinine 1.77 H Glucose Level 81 Calcium Level 7.7 L Magnesium Level 1.8 1.8 Phosphorus Level 6.1 H Test 02/02/17 09:38 02/02/17 13:34 Sodium Level 140 Potassium Level 4.2 Chloride Level 117 H Carbon Dioxide Level 17 L Anion Gap 10 Blood Urea Nitrogen 73 H Creatinine 1.73 H Glucose Level 81 Calcium Level 7.9 L Bedside Glucose 122 Medications Medications Current Medications Ondansetron HCl (Zofran Inj) 4 mg Q6H PRN IV NAUSEA AND/OR VOMITING; Start 07/04 at 00:00 Acetaminophen (Tylenol Liquid) 650 mg Q6H PRN PO PAIN LEVEL 1-3 OR FEVER; Start 01/26/17 at 00:00 Morphine Sulfate (morphine) 2 mg Q4H PRN IV PAIN LEVEL 7-10 Last administered on 01/29/17 03:41; Admin Dose 2 MG; Start 01/26/17 at 00:00 Lorazepam 1 mg 1 mg Q2H PRN IV ANXIETY; Start 01/26/17 at 00:00 Linezolid 300 ml @ 300 mls/hr Q12 IVPB Last administered on 02/02/17 10:53; Admin Dose 300 MLS/HR; Start 01/26/17 at 00:00 Meropenem 100 ml @ 200 mls/hr Q12 IVPB Last administered on 02/02/17 10:54; Admin Dose 200 MLS/HR; Start 01/26/17 at 09:00 Pantoprazole/ Sodium Chloride (Protonix Iv/NS) 100 ml @ 10 mls/hr Q10H IV Last administered on 02/02/17 10:48; Admin Dose 10 MLS/HR; Start 01/26/17 at 06 :00 Collagenase (Santyl) 1 applic DAILY TOP Last administered on 01/31/17 10:04; Admin Dose 1 APPLIC; Start 01/26/17 at 09:00 Hydrogen Peroxide (Hydrogen Peroxide) 1 applic QHS TOP Last administered on 23:27; Admin Dose 1 APPLIC; Start 01/26/17 at 21:00 Hydrogen Peroxide (Hydrogen Peroxide) 1 applic DAILY TOP Last administered on 09:13; Admin Dose 1 APPLIC; Start 01/27/17 at 09:00 Miscellaneous Information (Pending Santyl Order For Wound Care) This patient carrion... PRN PRN XX WOUND CARE; Start 01/27/17 at 11:00 Sodium Hypochlorite 1 applic 1 applic DAILY IRR Last administered on 02/02/17 09:13; Admin Dose 1 APPLIC; Start 01/28/17 at 21:00 Sodium Chloride 1,000 ml @ 75 mls/hr [id number] IV Last administered on 13:48; Admin Dose 75 MLS/HR; Start 01/29/17 at 07:30 Ciprofloxacin/ Dextrose (Cipro Ivpb) 100 ml @ 100 mls/hr Q12 IVPB Last administered on 02/02/17 10:53; Admin Dose 100 MLS/HR; Start 01/29/17 at 21:00 Insulin Aspart (Novolog Insulin Pen) (Adult SC Insulin - Mild Algorithm)... Q6 SC ; Start 02/01/17 at 11:30 Miscellaneous Information 1 ea NOTE XX ; Start 02/01/17 at 10:30 Glucose (Glutose) 15 gm Q15M PRN PO DECREASED GLUCOSE; Start 02/01/17 at 10:30 Glucose (Glutose) 22.5 gm Q15M PRN PO DECREASED GLUCOSE; Start 02/01/17 at 10: 30 Dextrose (D50w Syringe) 25 ml Q15M PRN IV DECREASED GLUCOSE; Start 02/01/17 at 10:30 Dextrose (D50w Syringe) 50 ml Q15M PRN IV DECREASED GLUCOSE; Start 02/01/17 at 10:30 Glucagon (Glucagen) 1 mg Q15M PRN IM DECREASED GLUCOSE; Start 02/01/17 at 10:30 Glucose (Glutose) 15 gm Q15M PRN BUCCAL DECREASED GLUCOSE; Start 02/01/17 at 10 :30 CIERA FRANK NP Feb 02, 2017 13:43
[2017-02-02] MEDS: COLLAGENASE 30 GM TUBE TOP SCH (14:15)
--- NOTE | 2017-02-02 14:35 | CONS ---
Date/Time of Note Date/Time of Note DATE: 02/02/17 TIME: 14:33 Assessment/Plan Assessment/Plan Additional Assessment/Plan Ventilator setting; AC of 16, tidal volume 500, PEEP of 5, 30% FiO2. Assessment recommendations; 1. Patient admitted for severe hematuria with possibility of underlying renal malignancy. 2. Right lower lobe pneumonia with development of right pleural effusion. 3. Multi-infarct dementia. 4. Renal insufficiency. 5. Chronic respiratory failure, patient remains agitated dependent. Continue current treatment. Obtain ultrasound-guided right-sided thoracentesis. Consultation Date/Type/Reason Admit Date/Time Jan 26, 2017 at 01:35 Type of Consultation: Pulmonary 24 HR Interval Summary Free Text/Dictation Patient condition remains unchanged. Has remained hemodynamically stable. No untoward events reported. General exam; elderly male, unresponsive. On ventilator via tracheostomy. Exam/Review of Systems Vital Signs Vitals Vital Signs Date Time Temp Pulse Resp B/P Pulse Ox O2 Delivery O2 Flow Rate FiO2 02/02/17 13:20 78 25 99 30 02/02/17 11:45 98.5 102/68 02/01/17 00:00 Mechanical Ventilator Intake and Output 02/01/17 02/01/17 02/02/17 15:00 23:00 07:00 Intake Total 2200 ml 340 ml Output Total 1000 ml Balance 1200 ml 340 ml Exam HEENT exam is; supple neck, no JVD. No lymphadenopathy. Midline trachea. No thyromegaly. Tracheostomy in place with clean insertion site. Patient is edentulous. Chest examined; diminished breath sounds right shoulder. Rest of the lung martinez are fairly clear. S1-S2 audible, no murmurs. Regular rhythm. Abdomen examination; no organomegaly. Bowel sounds audible. G-tube in place. Extremity examination; no peripheral edema. RIVER PILOT examination; patient remains unresponsive. Results Result Diagram: 02/02/17 0643 02/02/17 0938 Results 24 hrs Laboratory Tests Test 02/02/17 00:23 02/02/17 01:20 02/02/17 06:43 02/02/17 09:11 Bedside Glucose 109 92 White Blood Count 4.4 L 5.2 Red Blood Count 2.69 L 2.74 L Hemoglobin 8.5 L 8.5 L Hematocrit 25.8 L 27.1 L Mean Corpuscular Volume 95.9 98.9 Mean Corpuscular Hemoglobin 31.6 31.0 Mean Corpuscular Hemoglobin Concent 32.9 31.4 L Red Cell Distribution Width 15.9 H 16.3 H Platelet Count 103 L 98 L Mean Platelet Volume 11.8 H 12.2 H Neutrophils % 80.8 H 85.2 H Lymphocytes % 5.1 L 4.1 L Monocytes % 6.0 5.6 Eosinophils % 7.6 H 4.5 Basophils % 0.0 0.2 Nucleated Red Blood Cells % 0.0 0.0 Neutrophils # 3.5 4.4 Lymphocytes # 0.2 L 0.2 L Monocytes # 0.3 0.3 Eosinophils # 0.3 0.2 Basophils # 0.0 0.0 Nucleated Red Blood Cells # 0.0 0.0 Sodium Level 140 Potassium Level 3.1 L Chloride Level 116 H Carbon Dioxide Level 18 L Anion Gap 9 Blood Urea Nitrogen 75 H Creatinine 1.77 H Glucose Level 81 Calcium Level 7.7 L Magnesium Level 1.8 1.8 Phosphorus Level 6.1 H Test 02/02/17 09:38 02/02/17 13:34 Sodium Level 140 Potassium Level 4.2 Chloride Level 117 H Carbon Dioxide Level 17 L Anion Gap 10 Blood Urea Nitrogen 73 H Creatinine 1.73 H Glucose Level 81 Calcium Level 7.9 L Bedside Glucose 122 Medications Medications Current Medications Ondansetron HCl (Zofran Inj) 4 mg Q6H PRN IV NAUSEA AND/OR VOMITING; Start 07/04 at 00:00 Acetaminophen (Tylenol Liquid) 650 mg Q6H PRN PO PAIN LEVEL 1-3 OR FEVER; Start 01/26/17 at 00:00 Morphine Sulfate (morphine) 2 mg Q4H PRN IV PAIN LEVEL 7-10 Last administered on 01/29/17 03:41; Admin Dose 2 MG; Start 01/26/17 at 00:00 Lorazepam 1 mg 1 mg Q2H PRN IV ANXIETY; Start 01/26/17 at 00:00 Linezolid 300 ml @ 300 mls/hr Q12 IVPB Last administered on 02/02/17 10:53; Admin Dose 300 MLS/HR; Start 01/26/17 at 00:00 Meropenem 100 ml @ 200 mls/hr Q12 IVPB Last administered on 02/02/17 10:54; Admin Dose 200 MLS/HR; Start 01/26/17 at 09:00 Pantoprazole/ Sodium Chloride (Protonix Iv/NS) 100 ml @ 10 mls/hr Q10H IV Last administered on 02/02/17 10:48; Admin Dose 10 MLS/HR; Start 01/26/17 at 06 :00 Collagenase (Santyl) 1 applic DAILY TOP Last administered on 02/02/17 14:15; Admin Dose 1 APPLIC; Start 01/26/17 at 09:00 Hydrogen Peroxide (Hydrogen Peroxide) 1 applic QHS TOP Last administered on 23:27; Admin Dose 1 APPLIC; Start 01/26/17 at 21:00 Hydrogen Peroxide (Hydrogen Peroxide) 1 applic DAILY TOP Last administered on 09:13; Admin Dose 1 APPLIC; Start 01/27/17 at 09:00 Miscellaneous Information (Pending Santyl Order For Wound Care) This patient carrion... PRN PRN XX WOUND CARE; Start 01/27/17 at 11:00 Sodium Hypochlorite 1 applic 1 applic DAILY IRR Last administered on 02/02/17 09:13; Admin Dose 1 APPLIC; Start 01/28/17 at 21:00 Sodium Chloride 1,000 ml @ 75 mls/hr [id number] IV Last administered on 13:48; Admin Dose 75 MLS/HR; Start 01/29/17 at 07:30 Ciprofloxacin/ Dextrose (Cipro Ivpb) 100 ml @ 100 mls/hr Q12 IVPB Last administered on 02/02/17 10:53; Admin Dose 100 MLS/HR; Start 01/29/17 at 21:00 Insulin Aspart (Novolog Insulin Pen) (Adult SC Insulin - Mild Algorithm)... Q6 SC ; Start 02/01/17 at 11:30 Miscellaneous Information 1 ea NOTE XX ; Start 02/01/17 at 10:30 Glucose (Glutose) 15 gm Q15M PRN PO DECREASED GLUCOSE; Start 02/01/17 at 10:30 Glucose (Glutose) 22.5 gm Q15M PRN PO DECREASED GLUCOSE; Start 02/01/17 at 10: 30 Dextrose (D50w Syringe) 25 ml Q15M PRN IV DECREASED GLUCOSE; Start 02/01/17 at 10:30 Dextrose (D50w Syringe) 50 ml Q15M PRN IV DECREASED GLUCOSE; Start 02/01/17 at 10:30 Glucagon (Glucagen) 1 mg Q15M PRN IM DECREASED GLUCOSE; Start 02/01/17 at 10:30 Glucose (Glutose) 15 gm Q15M PRN BUCCAL DECREASED GLUCOSE; Start 02/01/17 at 10 :30 AARON HUFF Feb 02, 2017 14:35
--- NOTE | 2017-02-02 15:43 | PN ---
Date/Time of Note Date/Time of Note DATE: 02/02/17 TIME: 15:42 Assessment/Plan VTE Prophylaxis VTE Prophylaxis Intervention: SCD's Lines/Catheters IV Catheter Type (from [facility]): PICC Line Central line still needed: Yes Urinary Cath still in place: Yes Reason Cath still needed: other (indicate) Assessment/Plan Chief Complaint/Hosp Course 1. Sepsis with underlying septic shock secondary to healthcare-associated pneumonia and urinary tract infection along with bacteremia. Continue antibiotics as per infectious diseases. Status post IV pressors. 2. Ventilator-dependent respiratory failure. Continue mechanical ventilator management as per pulmonology. 3. Acute on chronic kidney injury. The patient is being followed by nephrology. Use nephrotoxic drugs with caution. 4. Normocytic normochromic anemia requiring blood transfusion. Etiology unclear. Stool for OB x1 negative. Status post multiple blood transfusions. Continue Protonix drip. 5. Gross hematuria. Etiology unclear. This has been resolving. Status post evaluation by urology. 6. Hypernatremia, most probably secondary to dehydration. Resolved with free water via G-tube. 7. Hyperkalemia. Resolved. 8. Dysphagia. Status post percutaneous endoscopic gastrostomy tube. 9. Paroxysmal atrial fibrillation. Currently in sinus rhythm. Cardiology evaluation ordered. 10. Multiple decubitus wounds. Continue local wound care. 11. Fluid, electrolytes and nutrition. Continue G-tube feedings. 12. Deep venous thrombosis prophylaxis. Bilateral sequential compression devices. 13. Gastrointestinal prophylaxis. On proton pump inhibitors. PLAN: Continue antibiotics as per infectious diseases. Start prokinetics. Case discussed with Dr. Silverio. Problems: Subjective 24 Hr Interval Summary Free Text/Dictation The patient has high tube feeding residuals. Hence, the tube feedings were put on hold. Exam/Review of Systems Vital Signs Vitals Vital Signs Date Time Temp Pulse Resp B/P Pulse Ox O2 Delivery O2 Flow Rate FiO2 02/02/17 15:00 125 19 95 35 02/02/17 11:45 98.5 102/68 02/01/17 00:00 Mechanical Ventilator Intake and Output 02/01/17 02/01/17 02/02/17 15:00 23:00 07:00 Intake Total 2200 ml 340 ml Output Total 1000 ml Balance 1200 ml 340 ml Exam GENERAL: This is an elderly 71-year-old male patient lying in bed, mechanically ventilated, tracheostomy to ventilator. HEENT: Head normocephalic and atraumatic. The patient has multiple wounds on his scalp. Eyes: Anicteric sclerae. Conjunctivae clear. ENT: Nasal septum is midline. Oral mucosa is dry. Poor dentition. NECK: Tracheostomy in midline. RESPIRATORY: Bilaterally diminished breath sounds. Mechanically ventilated. CARDIAC: Regular rate and rhythm. S1 and S2 heard. ABDOMEN: Slightly distended. Left upper quadrant G-tube in place. GENITOURINARY: The patient has a Lopez catheter in place. No gross hematuria. EXTREMITIES: No cyanosis, no clubbing. Bilateral lower extremity pedal edema. Peripheral pulses are palpable. NEUROLOGIC: The patient is obtunded. Does not track movements. Moans with pain. SKIN: Multiple pressure ulcers. Results Result Diagram: 02/02/17 0643 02/02/17 0938 Results 24 hrs Laboratory Tests Test 02/02/17 00:23 02/02/17 01:20 02/02/17 06:43 02/02/17 09:11 Bedside Glucose 109 92 White Blood Count 4.4 L 5.2 Red Blood Count 2.69 L 2.74 L Hemoglobin 8.5 L 8.5 L Hematocrit 25.8 L 27.1 L Mean Corpuscular Volume 95.9 98.9 Mean Corpuscular Hemoglobin 31.6 31.0 Mean Corpuscular Hemoglobin Concent 32.9 31.4 L Red Cell Distribution Width 15.9 H 16.3 H Platelet Count 103 L 98 L Mean Platelet Volume 11.8 H 12.2 H Neutrophils % 80.8 H 85.2 H Lymphocytes % 5.1 L 4.1 L Monocytes % 6.0 5.6 Eosinophils % 7.6 H 4.5 Basophils % 0.0 0.2 Nucleated Red Blood Cells % 0.0 0.0 Neutrophils # 3.5 4.4 Lymphocytes # 0.2 L 0.2 L Monocytes # 0.3 0.3 Eosinophils # 0.3 0.2 Basophils # 0.0 0.0 Nucleated Red Blood Cells # 0.0 0.0 Sodium Level 140 Potassium Level 3.1 L Chloride Level 116 H Carbon Dioxide Level 18 L Anion Gap 9 Blood Urea Nitrogen 75 H Creatinine 1.77 H Glucose Level 81 Calcium Level 7.7 L Magnesium Level 1.8 1.8 Phosphorus Level 6.1 H Test 02/02/17 09:38 02/02/17 13:34 Sodium Level 140 Potassium Level 4.2 Chloride Level 117 H Carbon Dioxide Level 17 L Anion Gap 10 Blood Urea Nitrogen 73 H Creatinine 1.73 H Glucose Level 81 Calcium Level 7.9 L Bedside Glucose 122 Medications Medications Current Medications Ondansetron HCl (Zofran Inj) 4 mg Q6H PRN IV NAUSEA AND/OR VOMITING; Start 07/04 at 00:00 Acetaminophen (Tylenol Liquid) 650 mg Q6H PRN PO PAIN LEVEL 1-3 OR FEVER; Start 01/26/17 at 00:00 Morphine Sulfate (morphine) 2 mg Q4H PRN IV PAIN LEVEL 7-10 Last administered on 01/29/17 03:41; Admin Dose 2 MG; Start 01/26/17 at 00:00 Lorazepam 1 mg 1 mg Q2H PRN IV ANXIETY; Start 01/26/17 at 00:00 Linezolid 300 ml @ 300 mls/hr Q12 IVPB Last administered on 02/02/17 10:53; Admin Dose 300 MLS/HR; Start 01/26/17 at 00:00 Meropenem 100 ml @ 200 mls/hr Q12 IVPB Last administered on 02/02/17 10:54; Admin Dose 200 MLS/HR; Start 01/26/17 at 09:00 Pantoprazole/ Sodium Chloride (Protonix Iv/NS) 100 ml @ 10 mls/hr Q10H IV Last administered on 02/02/17 10:48; Admin Dose 10 MLS/HR; Start 01/26/17 at 06 :00 Collagenase (Santyl) 1 applic DAILY TOP Last administered on 02/02/17 14:15; Admin Dose 1 APPLIC; Start 01/26/17 at 09:00 Hydrogen Peroxide (Hydrogen Peroxide) 1 applic QHS TOP Last administered on 23:27; Admin Dose 1 APPLIC; Start 01/26/17 at 21:00 Hydrogen Peroxide (Hydrogen Peroxide) 1 applic DAILY TOP Last administered on 09:13; Admin Dose 1 APPLIC; Start 01/27/17 at 09:00 Miscellaneous Information (Pending Santyl Order For Wound Care) This patient carrion... PRN PRN XX WOUND CARE; Start 01/27/17 at 11:00 Sodium Hypochlorite 1 applic 1 applic DAILY IRR Last administered on 02/02/17 09:13; Admin Dose 1 APPLIC; Start 01/28/17 at 21:00 Sodium Chloride 1,000 ml @ 75 mls/hr [id number] IV Last administered on 13:48; Admin Dose 75 MLS/HR; Start 01/29/17 at 07:30 Ciprofloxacin/ Dextrose (Cipro Ivpb) 100 ml @ 100 mls/hr Q12 IVPB Last administered on 02/02/17 10:53; Admin Dose 100 MLS/HR; Start 01/29/17 at 21:00 Insulin Aspart (Novolog Insulin Pen) (Adult SC Insulin - Mild Algorithm)... Q6 SC ; Start 02/01/17 at 11:30 Miscellaneous Information 1 ea NOTE XX ; Start 02/01/17 at 10:30 Glucose (Glutose) 15 gm Q15M PRN PO DECREASED GLUCOSE; Start 02/01/17 at 10:30 Glucose (Glutose) 22.5 gm Q15M PRN PO DECREASED GLUCOSE; Start 02/01/17 at 10: 30 Dextrose (D50w Syringe) 25 ml Q15M PRN IV DECREASED GLUCOSE; Start 02/01/17 at 10:30 Dextrose (D50w Syringe) 50 ml Q15M PRN IV DECREASED GLUCOSE; Start 02/01/17 at 10:30 Glucagon (Glucagen) 1 mg Q15M PRN IM DECREASED GLUCOSE; Start 02/01/17 at 10:30 Glucose (Glutose) 15 gm Q15M PRN BUCCAL DECREASED GLUCOSE; Start 02/01/17 at 10 :30 JULIAN EASON NP Feb 02, 2017 15:43
[2017-02-02] MEDS: METOCLOPRAMIDE 10 MG INJ IV SCH (18:01)
[2017-02-02] MEDS ORDERED: ALTEPLASE (CATHFLO) 2 MG INJ CATHETER PRN (19:00)
[2017-02-03] VITALS (25 sets, daily range): BP systolic 97–121; BP diastolic 56–83; PULSE 82–93; RESP 15–29
[2017-02-03] MEDS: METOCLOPRAMIDE 10 MG INJ IV SCH ×4 (00:13→17:21)
[2017-02-03] MEDS: PANTOPRAZOLE IV 80 MG in SOD CHLORIDE 0.9% 100 ML IV SCH ×2 (04:51→15:11)
[2017-02-03] MEDS: Insulin NOVOLOG SS MILD Algorithm (NPO/TPN/ENTERAL FEEDS) SC SCH ×4 (05:24→17:22)
[2017-02-03 05:50] LABS: ADD SCAN DIFF NO
[2017-02-03 05:54] LABS: ABNORMAL IP MESSAGE 1; HEMATOCRIT 21.2 % (42.0-52.0); MEAN CORPUSCULAR HGB CONC 31.1 g/dl (32.0-37.0); MEAN CORPUSCULAR VOLUME 99.5 fl (82.0-101.0); MEAN PLATELET VOLUME 11.8 fl (7.4-10.4); PLATELET COUNT 103 10^3/UL (140-415); RED BLOOD COUNT 2.13 10^6/ul (4.70-6.10); RED CELL DISTRIBUTION WIDTH 16.1 % (11.5-14.5)
[2017-02-03 06:19] LABS: MAGNESIUM 2.1 mg/dl (1.7-2.5); PHOSPHORUS 4.8 mg/dl (2.5-4.9)
[2017-02-03 06:21] LABS: CALCIUM 7.6 mg/dl (8.4-10.2); CREATININE 1.6 mg/dl (0.61-1.24); POTASSIUM 3.6 mmol/L (3.5-5.1)
[2017-02-03 06:55] LABS: HEMOGLOBIN 6.6 g/dl (14.0-18.0)
[2017-02-03] MEDS: SOD CHLORIDE 0.9% 1,000 ML IV SCH (07:30)
[2017-02-03 07:58] LABS: HEMATOCRIT 24.9 % (42.0-52.0); HEMOGLOBIN 7.8 g/dl (14.0-18.0)
[2017-02-03] MEDS: SEVELAMER CARBONATE 0.8 GM PKT PO SCH ×3 (09:18→17:21)
[2017-02-03] MEDS: LINEZOLID 600 MG/D5W (PMX) 300 ML IVPB SCH ×2 (09:18→20:39)
[2017-02-03] MEDS: SODIUM HYPOCHLORITE 0.125% 473 ML BTL IRR SCH (09:18)
[2017-02-03] MEDS: CIPROFLOXACIN 200 MG/D5W IVPB 100 ML IVPB SCH ×2 (09:18→20:39)
[2017-02-03] MEDS: MEROPENEM 1 GM/100 ML (PMX) 100 ML IVPB SCH ×2 (09:19→20:39)
[2017-02-03] MEDS: HYDROGEN PEROXIDE 118 ML TOP SCH ×2 (09:19→20:40)
[2017-02-03] MEDS: COLLAGENASE 30 GM TUBE TOP SCH (09:20)
--- NOTE | 2017-02-03 10:13 | PN ---
Date/Time of Note Date/Time of Note DATE: 02/03/17 TIME: 10:12 Assessment/Plan VTE Prophylaxis VTE Prophylaxis Intervention: SCD's Lines/Catheters IV Catheter Type (from [facility]): PICC Line Central line still needed: Yes Urinary Cath still in place: Yes Reason Cath still needed: other (indicate) Assessment/Plan Chief Complaint/Hosp Course 1. Sepsis with underlying septic shock secondary to healthcare-associated pneumonia and urinary tract infection along with bacteremia. Continue antibiotics as per infectious diseases. Status post IV pressors. 2. Ventilator-dependent respiratory failure. Continue mechanical ventilator management as per pulmonology. 3. Acute on chronic kidney injury. The patient is being followed by nephrology. Use nephrotoxic drugs with caution. 4. Normocytic normochromic anemia requiring blood transfusion. Etiology unclear. Stool for OB x1 negative. Status post multiple blood transfusions. Continue Protonix drip. 5. Gross hematuria. Etiology unclear. This has been resolving. Status post evaluation by urology. 6. Hypernatremia, most probably secondary to dehydration. Resolved with free water via G-tube. 7. Hyperkalemia. Resolved. 8. Dysphagia. Status post percutaneous endoscopic gastrostomy tube. 9. Paroxysmal atrial fibrillation. Currently in sinus rhythm. Cardiology evaluation ordered. 10. Multiple decubitus wounds. Continue local wound care. 11. Fluid, electrolytes and nutrition. Continue G-tube feedings. 12. Deep venous thrombosis prophylaxis. Bilateral sequential compression devices. 13. Gastrointestinal prophylaxis. On proton pump inhibitors. PLAN: Continue antibiotics as per infectious diseases. Blood transfusion. Case discussed with Dr. Gurrola. Problems: Subjective 24 Hr Interval Summary Free Text/Dictation Patient remains afebrile. Exam/Review of Systems Vital Signs Vitals Vital Signs Date Time Temp Pulse Resp B/P Pulse Ox O2 Delivery O2 Flow Rate FiO2 02/03/17 10:01 98.7 91 18 106/65 96 02/03/17 09:29 30 02/01/17 00:00 Mechanical Ventilator Intake and Output 02/02/17 02/02/17 02/03/17 15:00 23:00 07:00 Intake Total 2350 ml 2785 ml Output Total 1200 ml 300 ml Balance 1150 ml 2485 ml Exam GENERAL: This is an elderly 71-year-old male patient lying in bed, mechanically ventilated, tracheostomy to ventilator. HEENT: Head normocephalic and atraumatic. The patient has multiple wounds on his scalp. Eyes: Anicteric sclerae. Conjunctivae clear. ENT: Nasal septum is midline. Oral mucosa is dry. Poor dentition. NECK: Tracheostomy in midline. RESPIRATORY: Bilaterally diminished breath sounds. Mechanically ventilated. CARDIAC: Regular rate and rhythm. S1 and S2 heard. ABDOMEN: Slightly distended. Left upper quadrant G-tube in place. GENITOURINARY: The patient has a Lopez catheter in place. No gross hematuria. EXTREMITIES: No cyanosis, no clubbing. Bilateral lower extremity pedal edema. Peripheral pulses are palpable. NEUROLOGIC: The patient is obtunded. Does not track movements. Moans with pain. SKIN: Multiple pressure ulcers. Results Result Diagram: 02/03/17 0737 02/03/17 0535 Results 24 hrs Laboratory Tests Test 02/02/17 13:34 02/02/17 18:07 02/03/17 00:02 02/03/17 05:24 Bedside Glucose 122 105 123 97 Test 02/03/17 05:35 02/03/17 07:37 White Blood Count 6.0 Red Blood Count 2.13 #L Hemoglobin 6.6 #*L 7.8 L Hematocrit 21.2 #L 24.9 L Mean Corpuscular Volume 99.5 Mean Corpuscular Hemoglobin 31.0 Mean Corpuscular Hemoglobin Concent 31.1 L Red Cell Distribution Width 16.1 H Platelet Count 103 L Mean Platelet Volume 11.8 H Neutrophils % Eosinophils % Neutrophils # Eosinophils # Sodium Level 144 Potassium Level 3.6 Chloride Level 121 H Carbon Dioxide Level 17 L Anion Gap 10 Blood Urea Nitrogen 65 H Creatinine 1.60 H Glucose Level 81 Calcium Level 7.6 L Phosphorus Level 4.8 Magnesium Level 2.1 Medications Medications Current Medications Ondansetron HCl (Zofran Inj) 4 mg Q6H PRN IV NAUSEA AND/OR VOMITING; Start 07/04 at 00:00 Acetaminophen (Tylenol Liquid) 650 mg Q6H PRN PO PAIN LEVEL 1-3 OR FEVER; Start 01/26/17 at 00:00 Morphine Sulfate (morphine) 2 mg Q4H PRN IV PAIN LEVEL 7-10 Last administered on 01/29/17t 03:41; Admin Dose 2 MG; Start 01/26/17 at 00:00 Lorazepam 1 mg 1 mg Q2H PRN IV ANXIETY; Start 01/26/17 at 00:00 Linezolid 300 ml @ 300 mls/hr Q12 IVPB Last administered on 02/03/17 09:18; Admin Dose 300 MLS/HR; Start 01/26/17 at 00:00 Meropenem 100 ml @ 200 mls/hr Q12 IVPB Last administered on 02/03/17 09:19; Admin Dose 200 MLS/HR; Start 01/26/17 at 09:00 Pantoprazole/ Sodium Chloride (Protonix Iv/NS) 100 ml @ 10 mls/hr Q10H IV Last administered on 02/03/17 04:51; Admin Dose 10 MLS/HR; Start 01/26/17 at 06 :00 Collagenase (Santyl) 1 applic DAILY TOP Last administered on 02/03/17 09:20; Admin Dose 1 APPLIC; Start 01/26/17 at 09:00 Hydrogen Peroxide (Hydrogen Peroxide) 1 applic QHS TOP Last administered on 21:56; Admin Dose 1 APPLIC; Start 01/26/17 at 21:00 Hydrogen Peroxide (Hydrogen Peroxide) 1 applic DAILY TOP Last administered on 09:19; Admin Dose 1 APPLIC; Start 01/27/17 at 09:00 Miscellaneous Information (Pending Santyl Order For Wound Care) This patient carrion... PRN PRN XX WOUND CARE; Start 01/27/17 at 11:00 Sodium Hypochlorite 1 applic 1 applic DAILY IRR Last administered on 02/03/17 09:18; Admin Dose 1 APPLIC; Start 01/28/17 at 21:00 Ciprofloxacin/ Dextrose (Cipro Ivpb) 100 ml @ 100 mls/hr Q12 IVPB Last administered on 02/03/17 09:18; Admin Dose 100 MLS/HR; Start 01/29/17 at 21:00 Insulin Aspart (Novolog Insulin Pen) (Adult SC Insulin - Mild Algorithm)... Q6 SC ; Start 02/01/17 at 11:30 Miscellaneous Information 1 ea NOTE XX ; Start 02/01/17 at 10:30 Glucose (Glutose) 15 gm Q15M PRN PO DECREASED GLUCOSE; Start 02/01/17 at 10:30 Glucose (Glutose) 22.5 gm Q15M PRN PO DECREASED GLUCOSE; Start 02/01/17 at 10: 30 Dextrose (D50w Syringe) 25 ml Q15M PRN IV DECREASED GLUCOSE; Start 02/01/17 at 10:30 Dextrose (D50w Syringe) 50 ml Q15M PRN IV DECREASED GLUCOSE; Start 02/01/17 at 10:30 Glucagon (Glucagen) 1 mg Q15M PRN IM DECREASED GLUCOSE; Start 02/01/17 at 10:30 Glucose (Glutose) 15 gm Q15M PRN BUCCAL DECREASED GLUCOSE; Start 02/01/17 at 10 :30 Metoclopramide HCl (Reglan) 5 mg Q6 IV Last administered on 02/03/17t 05:20; Admin Dose 5 MG; Start 02/02/17 at 17:00 JULIAN EASON NP Feb 03, 2017 10:13
[2017-02-03] MEDS ORDERED: SOD CHLORIDE 0.9% 250 ML IV* ONE (10:36)
[2017-02-03 13:04] LABS: LYMPHOCYTES # 0.4 10^3/ul (0.8-2.9); MONOCYTE # 0.2 10^3/ul (0.3-0.9); NEUTROPHIL # 5.4 10^3/ul (1.6-7.5)
--- NOTE | 2017-02-03 13:20 | PN ---
DATE: 02/03/2017 SUBJECTIVE: The patient is currently on telemetry, stable. No other events noted. OBJECTIVE: VITAL SIGNS: Temperature 99/62, respirations 18, pulse ____, temperature 97.9. INTAKE AND OUTPUT: The patient had 5 L in, 1.5 L out. HEENT: Head is normocephalic. NECK: Supple. HEART: Regular rate. LUNGS: Show diminished breath sounds at base. ABDOMEN: Soft, nontender to palpation, no rebound or guarding. EXTREMITIES: Negative for clubbing, cyanosis. Trace positive edema. DERMATOLOGIC: No rashes. MUSCULOSKELETAL: No joint effusions. NEUROLOGIC: No change in exam. MEDICATIONS: The patient's medications have been reviewed. LABORATORY DATA: Shows sodium 144, potassium 3.6, chloride 121, BUN 6, creatinine 0.6. Hemoglobin 7.8, hematocrit 24.9. ASSESSMENT AND PLAN: 1. Nonoliguric acute kidney injury on top of chronic kidney disease stage IV with a baseline creati nine of 1.5 to 2.5 mg/dL. The etiology of acute kidney injury secondary to acute tubular necrosis a nd obstructive uropathy. The patient has been evaluated by urology. No plans for intervention from urology standpoint. Renal function has improved with supportive care. At this point, continue cur rent treatment plan, supportive care, renally dose all medications, avoid nephrotoxins. 2. Bilateral hydronephrosis. Etiology is unclear, concerning for mechanical obstruction. The maria luz ent has been evaluated by urology, will continue to monitor. Follow up recommendations. 3. Renal mass, etiology is concerning for possible renal cell carcinoma. Will continue to monitor. Follow up with urology for recommendations. 4. Gross hematuria, improved. 5. Mineral bone severe monitor calcium and phosphorus levels. 6. Anemia. Continue to monitor hemoglobin and hematocrit levels. Will defer Epogen in the setting of possible renal cell carcinoma. 7. Ventilatory-dependent respiratory failure. Vent settings reviewed. ABGs reviewed. Continue to monitor. 8. Dysphagia status post PEG. Continue tube feeding. 9. Chronic encephalopathy. Etiology is multifactorial. Continue to monitor. 10. Sepsis secondary to healthcare-associated pneumonia, urinary tract infection. Continue current antibiotic regimen. 11. Esophagitis, gastritis. Continue proton pump inhibitor. 12. Diabetes, continue Accu-Cheks and insulin sliding scale. 13. Decubitus wound. Continue wound care. Dictated By: JACOB GOMEZ/LESLY Conf#: [id number] DID#: [id number]
--- NOTE | 2017-02-03 14:06 | CONS ---
Date/Time of Note Date/Time of Note DATE: 02/03/17 TIME: 14:00 Assessment/Plan Assessment/Plan Additional Assessment/Plan Sinus arrhythmia with PACs Sepsis Respiratory failure Acute kidney injury Encephalopathy -Telemetry reviewed and patient with sinus rhythm with frequent PACs. Would ideally maintain potassium above 4.0 and magnesium above 2.0. Echocardiogram has been ordered. Consultation Date/Type/Reason Admit Date/Time Jan 26, 2017 at 01:35 Type of Consultation: cv Reason for Consultation Arrhythmia Hx of Present Illness This is a 71-year-old male with history of encephalopathy, chronic respiratory failure on tracheostomy, decubiti who was admitted with sepsis. Patient with prolonged hospital stay. Patient with irregular heart rhythm seen on telemetry and for this reason cardiology consultation was requested. Patient unable to give history and information obtained from the medical chart and staff. Unable to be performed at the current time secondary to patient's mental status Psychological: other Past Medical History Respiratory failure Congestive heart failure Encephalopathy Kidney disease Past Surgical History Including but not limited to tracheostomy Family History Significant Family History: no pertinent family hx Social History Smoking Status: Unknown if ever smoked Other Social History From facility Exam/Review of Systems Vital Signs Vitals Vital Signs Date Time Temp Pulse Resp B/P Pulse Ox O2 Delivery O2 Flow Rate FiO2 02/03/17 13:09 96 24 98 30 02/03/17 11:50 98.8 97/56 02/01/17 00:00 Mechanical Ventilator Intake and Output 02/02/17 02/02/17 02/03/17 15:00 23:00 07:00 Intake Total 2350 ml 2785 ml Output Total 1200 ml 300 ml Balance 1150 ml 2485 ml Exam No apparent distress, no response to verbal or tactile stimuli Head: normocephalic Neck: other (Tracheostomy) Respiratory: other (Coarse breath sounds bilaterally, no wheezing) Cardiovascular: other (S1-S2 heard), regular rate and rhythm Gastrointestinal: bowel sounds, other (No grimacing with palpation, likely abdominal hernia), soft Extremities: edema Results Result Diagram: 02/03/17 0737 02/03/17 0535 Results 24 hrs Laboratory Tests Test 02/02/17 18:07 02/03/17 00:02 02/03/17 05:24 02/03/17 05:35 Bedside Glucose 105 123 97 White Blood Count 6.0 Red Blood Count 2.13 #L Hemoglobin 6.6 #*L Hematocrit 21.2 #L Mean Corpuscular Volume 99.5 Mean Corpuscular Hemoglobin 31.0 Mean Corpuscular Hemoglobin Concent 31.1 L Red Cell Distribution Width 16.1 H Platelet Count 103 L Mean Platelet Volume 11.8 H Neutrophils % 90.0 H Lymphocytes % 6.0 L Monocytes % 4.0 Eosinophils % Neutrophils # 5.4 Lymphocytes # 0.4 L Monocytes # 0.2 L Eosinophils # Sodium Level 144 Potassium Level 3.6 Chloride Level 121 H Carbon Dioxide Level 17 L Anion Gap 10 Blood Urea Nitrogen 65 H Creatinine 1.60 H Glucose Level 81 Calcium Level 7.6 L Phosphorus Level 4.8 Magnesium Level 2.1 Test 02/03/17 07:37 02/03/17 08:10 02/03/17 12:32 Hemoglobin 7.8 L Hematocrit 24.9 L Stool Occult Blood NEGATIVE Bedside Glucose 94 Medications Medications Current Medications Ondansetron HCl (Zofran Inj) 4 mg Q6H PRN IV NAUSEA AND/OR VOMITING; Start 07/04 at 00:00 Acetaminophen (Tylenol Liquid) 650 mg Q6H PRN PO PAIN LEVEL 1-3 OR FEVER; Start 01/26/17 at 00:00 Morphine Sulfate (morphine) 2 mg Q4H PRN IV PAIN LEVEL 7-10 Last administered on 01/29/17 03:41; Admin Dose 2 MG; Start 01/26/17 at 00:00 Lorazepam 1 mg 1 mg Q2H PRN IV ANXIETY; Start 01/26/17 at 00:00 Linezolid 300 ml @ 300 mls/hr Q12 IVPB Last administered on 02/03/17 09:18; Admin Dose 300 MLS/HR; Start 01/26/17 at 00:00 Meropenem 100 ml @ 200 mls/hr Q12 IVPB Last administered on 02/03/17 09:19; Admin Dose 200 MLS/HR; Start 01/26/17 at 09:00 Pantoprazole/ Sodium Chloride (Protonix Iv/NS) 100 ml @ 10 mls/hr Q10H IV Last administered on 02/03/17 04:51; Admin Dose 10 MLS/HR; Start 01/26/17 at 06 :00 Collagenase (Santyl) 1 applic DAILY TOP Last administered on 02/03/17 09:20; Admin Dose 1 APPLIC; Start 01/26/17 at 09:00 Hydrogen Peroxide (Hydrogen Peroxide) 1 applic QHS TOP Last administered on 21:56; Admin Dose 1 APPLIC; Start 01/26/17 at 21:00 Hydrogen Peroxide (Hydrogen Peroxide) 1 applic DAILY TOP Last administered on 09:19; Admin Dose 1 APPLIC; Start 01/27/17 at 09:00 Miscellaneous Information (Pending [facility] Order For Wound Care) This patient carrion... PRN PRN XX WOUND CARE; Start 01/27/17 at 11:00 Sodium Hypochlorite 1 applic 1 applic DAILY IRR Last administered on 02/03/17 09:18; Admin Dose 1 APPLIC; Start 01/28/17 at 21:00 Ciprofloxacin/ Dextrose (Cipro Ivpb) 100 ml @ 100 mls/hr Q12 IVPB Last administered on 02/03/17 09:18; Admin Dose 100 MLS/HR; Start 01/29/17 at 21:00 Insulin Aspart (Novolog Insulin Pen) (Adult SC Insulin - Mild Algorithm)... Q6 SC ; Start 02/01/17 at 11:30 Miscellaneous Information 1 ea NOTE XX ; Start 02/01/17 at 10:30 Glucose (Glutose) 15 gm Q15M PRN PO DECREASED GLUCOSE; Start 02/01/17 at 10:30 Glucose (Glutose) 22.5 gm Q15M PRN PO DECREASED GLUCOSE; Start 02/01/17 at 10: 30 Dextrose (D50w Syringe) 25 ml Q15M PRN IV DECREASED GLUCOSE; Start 02/01/17 at 10:30 Dextrose (D50w Syringe) 50 ml Q15M PRN IV DECREASED GLUCOSE; Start 02/01/17 at 10:30 Glucagon (Glucagen) 1 mg Q15M PRN IM DECREASED GLUCOSE; Start 02/01/17 at 10:30 Glucose (Glutose) 15 gm Q15M PRN BUCCAL DECREASED GLUCOSE; Start 02/01/17 at 10 :30 Metoclopramide HCl (Reglan) 5 mg Q6 IV Last administered on 02/03/17 12:34; Admin Dose 5 MG; Start 02/02/17 at 17:00 Procedures Procedures ECG done January 25 demonstrates sinus rhythm at 80 bpm, [place] interval 216 ms, nonspecific STT wave abnormality Patricio De La Vega DO Feb 03, 2017 14:06
--- NOTE | 2017-02-03 15:26 | CONS ---
Date/Time of Note Date/Time of Note DATE: 02/03/17 TIME: 15:23 Assessment/Plan Assessment/Plan Additional Assessment/Plan Ventilator setting; AC of 16, tidal volume 500, PEEP of 5, 30% FiO2. Assessment recommendations; 1. Patient admitted for left lower lobe pneumonia currently on appropriate antibiotic regimen. 2. Severe hematuria likely from underlying renal malignancy however there is no further bleeding noted. With stable hematocrit. 3. Anemia. 4. Thrombocytopenia. 5. Chronic renal insufficiency. 6. Advanced multi-infarct dementia. 7. Chronic respiratory failure. Continue current treatment. [facility]. Overall prognosis remains poor. Consultation Date/Type/Reason Admit Date/Time Jan 26, 2017 at 01:35 Type of Consultation: Pulmonary/critical care 24 HR Interval Summary Free Text/Dictation Patient condition remains unchanged. Remains unresponsive. Has remained hemodynamically stable. General exam; elderly male, on ventilator via tracheostomy. Unresponsive. Currently in no distress Exam/Review of Systems Vital Signs Vitals Vital Signs Date Time Temp Pulse Resp B/P Pulse Ox O2 Delivery O2 Flow Rate FiO2 02/03/17 15:11 97 23 98 30 02/03/17 11:50 98.8 97/56 02/01/17 00:00 Mechanical Ventilator Intake and Output 02/02/17 02/02/17 02/03/17 15:00 23:00 07:00 Intake Total 2350 ml 2785 ml Output Total 1200 ml 300 ml Balance 1150 ml 2485 ml Exam HEENT exam is; supple neck, no JVD. No lymphadenopathy. Midline trachea. No thyromegaly. Colostomy placed with clean insertion site. Patient is edentulous. Chest examined; diminished breath sound left lower lobe. Rest of the lung martinez are clear. S1-S2 audible, no murmurs. Regular rhythm. Abdomen examination; soft, no organomegaly. Bowel sounds audible. G-tube in place. Extremity exam is; no peripheral edema. WILL CALL ORDER CLERK examination; patient remains unresponsive. Results Result Diagram: 02/03/17 0737 02/03/17 0535 Results 24 hrs Laboratory Tests Test 02/02/17 18:07 02/03/17 00:02 02/03/17 05:24 02/03/17 05:35 Bedside Glucose 105 123 97 White Blood Count 6.0 Red Blood Count 2.13 #L Hemoglobin 6.6 #*L Hematocrit 21.2 #L Mean Corpuscular Volume 99.5 Mean Corpuscular Hemoglobin 31.0 Mean Corpuscular Hemoglobin Concent 31.1 L Red Cell Distribution Width 16.1 H Platelet Count 103 L Mean Platelet Volume 11.8 H Neutrophils % 90.0 H Lymphocytes % 6.0 L Monocytes % 4.0 Eosinophils % Neutrophils # 5.4 Lymphocytes # 0.4 L Monocytes # 0.2 L Eosinophils # Sodium Level 144 Potassium Level 3.6 Chloride Level 121 H Carbon Dioxide Level 17 L Anion Gap 10 Blood Urea Nitrogen 65 H Creatinine 1.60 H Glucose Level 81 Calcium Level 7.6 L Phosphorus Level 4.8 Magnesium Level 2.1 Test 02/03/17 07:37 02/03/17 08:10 02/03/17 12:32 Hemoglobin 7.8 L Hematocrit 24.9 L Stool Occult Blood NEGATIVE Bedside Glucose 94 Medications Medications Current Medications Ondansetron HCl (Zofran Inj) 4 mg Q6H PRN IV NAUSEA AND/OR VOMITING; Start 07/04 at 00:00 Acetaminophen (Tylenol Liquid) 650 mg Q6H PRN PO PAIN LEVEL 1-3 OR FEVER; Start 01/26/17 at 00:00 Morphine Sulfate (morphine) 2 mg Q4H PRN IV PAIN LEVEL 7-10 Last administered on 01/29/17 03:41; Admin Dose 2 MG; Start 01/26/17 at 00:00 Lorazepam 1 mg 1 mg Q2H PRN IV ANXIETY; Start 01/26/17 at 00:00 Linezolid 300 ml @ 300 mls/hr Q12 IVPB Last administered on 02/03/17 09:18; Admin Dose 300 MLS/HR; Start 01/26/17 at 00:00 Meropenem 100 ml @ 200 mls/hr Q12 IVPB Last administered on 02/03/17 09:19; Admin Dose 200 MLS/HR; Start 01/26/17 at 09:00 Pantoprazole/ Sodium Chloride (Protonix Iv/NS) 100 ml @ 10 mls/hr Q10H IV Last administered on 02/03/17 15:11; Admin Dose 10 MLS/HR; Start 01/26/17 at 06 :00 Collagenase (Santyl) 1 applic DAILY TOP Last administered on 02/03/17 09:20; Admin Dose 1 APPLIC; Start 01/26/17 at 09:00 Hydrogen Peroxide (Hydrogen Peroxide) 1 applic QHS TOP Last administered on 21:56; Admin Dose 1 APPLIC; Start 01/26/17 at 21:00 Hydrogen Peroxide (Hydrogen Peroxide) 1 applic DAILY TOP Last administered on 09:19; Admin Dose 1 APPLIC; Start 01/27/17 at 09:00 [facility]isc[facility] This patient carrion... PRN PRN XX WOUND CARE; Start 01/27/17 at 11:00 Sodium Hypochlorite 1 applic 1 applic DAILY IRR Last administered on 02/03/17 09:18; Admin Dose 1 APPLIC; Start 01/28/17 at 21:00 Ciprofloxacin/ Dextrose (Cipro Ivpb) 100 ml @ 100 mls/hr Q12 IVPB Last administered on 02/03/17 09:18; Admin Dose 100 MLS/HR; Start 01/29/17 at 21:00 Insulin Aspart (Novolog Insulin Pen) (Adult SC Insulin - Mild Algorithm)... Q6 SC ; Start 02/01/17 at 11:30 Miscellaneous Information 1 ea NOTE XX ; Start 02/01/17 at 10:30 Glucose (Glutose) 15 gm Q15M PRN PO DECREASED GLUCOSE; Start 02/01/17 at 10:30 Glucose (Glutose) 22.5 gm Q15M PRN PO DECREASED GLUCOSE; Start 02/01/17 at 10: 30 Dextrose (D50w Syringe) 25 ml Q15M PRN IV DECREASED GLUCOSE; Start 02/01/17 at 10:30 Dextrose (D50w Syringe) 50 ml Q15M PRN IV DECREASED GLUCOSE; Start 02/01/17 at 10:30 Glucagon (Glucagen) 1 mg Q15M PRN IM DECREASED GLUCOSE; Start 02/01/17 at 10:30 Glucose (Glutose) 15 gm Q15M PRN BUCCAL DECREASED GLUCOSE; Start 02/01/17 at 10 :30 Metoclopramide HCl (Reglan) 5 mg Q6 IV Last administered on 02/03/17 12:34; Admin Dose 5 MG; Start 02/02/17 at 17:00 AARON HUFF Feb 03, 2017 15:26
--- NOTE | 2017-02-03 17:25 | RADRPT ---
Echocardiogram Report Patient Name: PATRICIO VINSON Gender: Male Date: 1945 Study Date: 02-Feb-2017 Test Examiner: [facility] Location: 529-A Ref. Physician: ZEENAT LOUIS Quality: Technically Difficult Study Procedures: Transthoracic echocardiogram with complete 2D, M-Mode, and doppler examination. Indications: New onset Atrial Fibrillation. 2D/M Mode Doppler Measurement Value Normal Ranges Measurement Value Normal Ranges LVIDd 2D 4.6 3.5 - 5.6 cm AV Peak Derek 1.1 m/sec LVIDs 2D 3.4 2.1 - 4.1 cm AV Peak PG 5.1 mmHg LVPWd 2D 1.3 0.6 - 1.1 cm LVOT Peak Derek 0.6 m/sec IVSd 2D 1.3 0.6 - 1.1 cm LVOT Peak PG 1.6 mmHg AoR Diam 2D 2.4 2.0 - 3.7 cm TR Peak Derek 3.3 m/sec EDV 2D 97.2 cm3 TR Peak PG 43.0 mmHg ESV 2D 37.6 cm3 LA Dimen 2D 3.6 2.3 - 4.0 cm Findings Left Ventricle: Normal left ventricular systolic function. Normal left ventricular cavity size. Mild concentric left ventricular hypertrophy. Ejection fraction is visually estimated at 65 %. Abnormal Diastolic Function. Right Ventricle: Normal right ventricular size. Normal right ventricular systolic function. Left Atrium: The left atrium is normal in size. Right Atrium: The right atrium is normal in size. Mitral Valve: Mild mitral leaflet calcification. Mild mitral annular calcification. Trace mitral regurgitation. Aortic Valve: Normal appearance of the aortic valve. No significant aortic stenosis or insufficiency. Tricuspid Valve: Normal appearance of the tricuspid valve. Estimated peak PA systolic pressure 51 mmHg. There is mild tricuspid regurgitation. Pulmonic Valve: Pulmonic valve not well visualized. There is trace pulmonic regurgitation. Pericardium: Small to medium sized pericardial effusion. Aorta: Normal aortic root. IVC: Dilated IVC with respiratory collapse, however, patient on ventilator. Conclusions Normal left ventricular systolic function. Normal left ventricular cavity size. Mild concentric left ventricular hypertrophy. Ejection fraction is visually estimated at 65 %. Abnormal Diastolic Function. Normal right ventricular size. Normal right ventricular systolic function. The left atrium is normal in size. The right atrium is normal in size. Normal appearance of the tricuspid valve. Estimated peak PA systolic pressure 51 mmHg. There is mild tricuspid regurgitation. No significant valvular stenosis or regurgitation seen of remaining visualized valves. Small to medium sized pericardial effusion. Electronically Signed By: Patricio De La Vega 03-Feb-2017 17:25:12 -0700 Patient Name: PATRICIO VINSON Study Date: 02-Feb-2017 [id number]
[2017-02-03 19:30] LABS: HEMATOCRIT 26.1 % (42.0-52.0); HEMOGLOBIN 8.4 g/dl (14.0-18.0)
--- NOTE | 2017-02-03 20:54 | CONS ---
Date/Time of Note Date/Time of Note DATE: 02/03/17 TIME: 20:53 Assessment/Plan Assessment/Plan Chief Complaint/Hosp Course SUBJECTIVE: No events. No fevers. Obtunded, looks comfortable MICROBIOLOGY: Blood cultures grew Staph and Proteus mirabilis. Urine culture grew Proteus mirabilis. Tracheal aspirate growing multidrug resistant Pseudomonas and Klebsiella pneumoniae susceptible to Cipro and Levaquin. INDWELLINGS: Trach, PEG, Lopez, and PICC line placed yesterday. ANTIMICROBIALS: Zyvox, Cipro and Meropenem. OBJECTIVE: GENERAL: This is a chronically ill-appearing, elderly man who is in no distress. HEENT: Head atraumatic, normocephalic. Sclerae anicteric. Buccal mucosa dry. NECK: Supple. Tracheostomy present. CHEST: Rise symmetrical. Breath sounds diminished. HEART: S1, S2. ABDOMEN: Soft, bowel tones present. EXTREMITIES: With trace edema. ASSESSMENT: 1. S/p sepsis with shock 2. Polymicrobial bacteremia 3. Urinary tract infection. 4. Unstageable sacral decubitus. 5. Acute renal failure. 6. Right upper kidney mass suspicious for malignancy. 7. HCAP. PLAN: Clinically unchanged, repeat bld cx negative, continue abx, local wound care, prognosis poor [facility] staff Problems: Consultation Date/Type/Reason Admit Date/Time Jan 26, 2017 at 01:35 Initial Consult Date 01/27/17 Type of Consultation: id Exam/Review of Systems Vital Signs Vitals Vital Signs Date Time Temp Pulse Resp B/P Pulse Ox O2 Delivery O2 Flow Rate FiO2 02/03/17 19:38 94 20 97 30 02/03/17 16:03 98.1 111/62 02/01/17 00:00 Mechanical Ventilator Intake and Output 02/02/17 02/02/17 02/03/17 15:00 23:00 07:00 Intake Total 2350 ml 2785 ml Output Total 1200 ml 300 ml Balance 1150 ml 2485 ml Results Result Diagram: 02/03/17 1905 02/03/17 0535 Results 24 hrs Laboratory Tests Test 02/03/17 00:02 02/03/17 05:24 02/03/17 05:35 02/03/17 07:37 Bedside Glucose 123 97 White Blood Count 6.0 Red Blood Count 2.13 #L Hemoglobin 6.6 #*L 7.8 L Hematocrit 21.2 #L 24.9 L Mean Corpuscular Volume 99.5 Mean Corpuscular Hemoglobin 31.0 Mean Corpuscular Hemoglobin Concent 31.1 L Red Cell Distribution Width 16.1 H Platelet Count 103 L Mean Platelet Volume 11.8 H Neutrophils % 90.0 H Lymphocytes % 6.0 L Monocytes % 4.0 Eosinophils % Neutrophils # 5.4 Lymphocytes # 0.4 L Monocytes # 0.2 L Eosinophils # Sodium Level 144 Potassium Level 3.6 Chloride Level 121 H Carbon Dioxide Level 17 L Anion Gap 10 Blood Urea Nitrogen 65 H Creatinine 1.60 H Glucose Level 81 Calcium Level 7.6 L Phosphorus Level 4.8 Magnesium Level 2.1 Test 02/03/17 08:10 02/03/17 12:32 02/03/17 17:18 02/03/17 19:05 Stool Occult Blood NEGATIVE Bedside Glucose 94 138 Hemoglobin 8.4 L Hematocrit 26.1 L Medications Medications Current Medications Ondansetron HCl (Zofran Inj) 4 mg Q6H PRN IV NAUSEA AND/OR VOMITING; Start 07/04 at 00:00 Acetaminophen (Tylenol Liquid) 650 mg Q6H PRN PO PAIN LEVEL 1-3 OR FEVER; Start 01/26/17 at 00:00 Morphine Sulfate (morphine) 2 mg Q4H PRN IV PAIN LEVEL 7-10 Last administered on 01/29/17 03:41; Admin Dose 2 MG; Start 01/26/17 at 00:00 Lorazepam 1 mg 1 mg Q2H PRN IV ANXIETY; Start 01/26/17 at 00:00 Linezolid 300 ml @ 300 mls/hr Q12 IVPB Last administered on 02/03/17 20:39; Admin Dose 300 MLS/HR; Start 01/26/17 at 00:00 Meropenem 100 ml @ 200 mls/hr Q12 IVPB Last administered on 02/03/17 20:39; Admin Dose 200 MLS/HR; Start 01/26/17 at 09:00 Pantoprazole/ Sodium Chloride (Protonix Iv/NS) 100 ml @ 10 mls/hr Q10H IV Last administered on 02/03/17 15:11; Admin Dose 10 MLS/HR; Start 01/26/17 at 06 :00 Collagenase (Santyl) 1 applic DAILY TOP Last administered on 02/03/17 09:20; Admin Dose 1 APPLIC; Start 01/26/17 at 09:00 Hydrogen Peroxide (Hydrogen Peroxide) 1 applic QHS TOP Last administered on 20:40; Admin Dose 1 APPLIC; Start 01/26/17 at 21:00 Hydrogen Peroxide (Hydrogen Peroxide) 1 applic DAILY TOP Last administered on 09:19; Admin Dose 1 APPLIC; Start 01/27/17 at 09:00 Miscellaneous Information (Pending Santyl Order For Wound Care) This patient carrion... PRN PRN XX WOUND CARE; Start 01/27/17 at 11:00 Sodium Hypochlorite 1 applic 1 applic DAILY IRR Last administered on 02/03/17 09:18; Admin Dose 1 APPLIC; Start 01/28/17 at 21:00 Ciprofloxacin/ Dextrose (Cipro Ivpb) 100 ml @ 100 mls/hr Q12 IVPB Last administered on 02/03/17 20:39; Admin Dose 100 MLS/HR; Start 01/29/17 at 21:00 Insulin Aspart (Novolog Insulin Pen) (Adult SC Insulin - Mild Algorithm)... Q6 SC ; Start 02/01/17 at 11:30 Miscellaneous Information 1 ea NOTE XX ; Start 02/01/17 at 10:30 Glucose (Glutose) 15 gm Q15M PRN PO DECREASED GLUCOSE; Start 02/01/17 at 10:30 Glucose (Glutose) 22.5 gm Q15M PRN PO DECREASED GLUCOSE; Start 02/01/17 at 10: 30 Dextrose (D50w Syringe) 25 ml Q15M PRN IV DECREASED GLUCOSE; Start 02/01/17 at 10:30 Dextrose (D50w Syringe) 50 ml Q15M PRN IV DECREASED GLUCOSE; Start 02/01/17 at 10:30 Glucagon (Glucagen) 1 mg Q15M PRN IM DECREASED GLUCOSE; Start 02/01/17 at 10:30 Glucose (Glutose) 15 gm Q15M PRN BUCCAL DECREASED GLUCOSE; Start 02/01/17 at 10 :30 Metoclopramide HCl (Reglan) 5 mg Q6 IV Last administered on 02/03/17 17:21; Admin Dose 5 MG; Start 02/02/17 at 17:00 CHRISS RIVAS NP Feb 03, 2017 20:54
[2017-02-04] VITALS (24 sets, daily range): BP systolic 97–119; BP diastolic 58–65; PULSE 71–99; RESP 13–33
[2017-02-04] MEDS: PANTOPRAZOLE IV 80 MG in SOD CHLORIDE 0.9% 100 ML IV SCH ×3 (00:37→19:56)
[2017-02-04] MEDS: METOCLOPRAMIDE 10 MG INJ IV SCH ×4 (00:37→17:15)
[2017-02-04] MEDS: Insulin NOVOLOG SS MILD Algorithm (NPO/TPN/ENTERAL FEEDS) SC SCH ×4 (06:00→17:16)
[2017-02-04 06:04] LABS: ABNORMAL IP MESSAGE 1; ADD SCAN DIFF NO; BASOPHILS % 0.2 % (0.0-2.0); EOSINOPHILS # 0.2 10^3/ul (0.0-0.5); EOSINOPHILS % 4.2 % (0.0-7.0); HEMATOCRIT 29.1 % (42.0-52.0); HEMOGLOBIN 9.2 g/dl (14.0-18.0); LYMPHOCYTES # 0.3 10^3/ul (0.8-2.9); LYMPHOCYTES % 7.2 % (15.0-51.0); MEAN CORPUSCULAR HEMOGLOBIN 30.5 pg (29.0-33.0); MEAN CORPUSCULAR HGB CONC 31.6 g/dl (32.0-37.0); MEAN CORPUSCULAR VOLUME 96.4 fl (82.0-101.0); MEAN PLATELET VOLUME 11.3 fl (7.4-10.4); MONOCYTE # 0.2 10^3/ul (0.3-0.9); MONOCYTES % 5.1 % (0.0-11.0); NEUTROPHIL # 3.9 10^3/ul (1.6-7.5); NEUTROPHILS % 82.9 % (39.0-77.0); PLATELET COUNT 90 10^3/UL (140-415); RED BLOOD COUNT 3.02 10^6/ul (4.70-6.10); RED CELL DISTRIBUTION WIDTH 18.6 % (11.5-14.5); WHITE BLOOD COUNT 4.7 10^3/ul (4.8-10.8)
[2017-02-04 06:31] LABS: PHOSPHORUS 4.3 mg/dl (2.5-4.9)
[2017-02-04 06:35] LABS: CALCIUM 8.3 mg/dl (8.4-10.2); CREATININE 1.7 mg/dl (0.61-1.24); POTASSIUM 3.9 mmol/L (3.5-5.1)
[2017-02-04] MEDS ORDERED: FUROSEMIDE 20 MG INJ IV ONE (09:00)
[2017-02-04] MEDS: SEVELAMER CARBONATE 0.8 GM PKT PO SCH ×3 (09:02→17:15)
[2017-02-04] MEDS: SODIUM HYPOCHLORITE 0.125% 473 ML BTL IRR SCH (09:03)
[2017-02-04] MEDS: MEROPENEM 1 GM/100 ML (PMX) 100 ML IVPB SCH ×2 (09:04→20:44)
[2017-02-04] MEDS: CIPROFLOXACIN 200 MG/D5W IVPB 100 ML IVPB SCH ×2 (09:04→21:39)
[2017-02-04] MEDS: LINEZOLID 600 MG/D5W (PMX) 300 ML IVPB SCH ×2 (09:04→21:40)
[2017-02-04] MEDS: HYDROGEN PEROXIDE 118 ML TOP SCH ×2 (09:05→21:41)
[2017-02-04] MEDS: COLLAGENASE 30 GM TUBE TOP SCH (09:06)
--- NOTE | 2017-02-04 11:19 | PN ---
DATE: 02/04/2017 SUBJECTIVE: The patient is stable, no acute events overnight. No hemoptysis, hematemesis or hemato chezia. OBJECTIVE: VITAL SIGNS: Blood pressure is 119/64, respirations 16, pulse 83, temperature 99.0. HEENT: Head is normocephalic. NECK: Supple. HEART: Regular rate. LUNGS: Show diminished breath sounds at base. ABDOMEN: Soft, nontender to palpation without rebound or guarding. EXTREMITIES: Negative for clubbing, cyanosis. Positive edema upper and lower extremity. DERMATOLOGIC: No rashes. MUSCULOSKELETAL: No joint effusions. NEUROLOGIC: No change in exam. MEDICATIONS: The patient's medications have been reviewed. LABORATORY DATA: Shows sodium 142, potassium 3.9, chloride 117, BUN 66, creatinine 1.70. White cou nt 4.7, hemoglobin 9.2, hematocrit 29.1, platelet count is 90. ASSESSMENT AND PLAN: 1. Nonoliguric acute kidney injury on top of chronic kidney disease stage IV with a baseline creati nine between 1.5 and 2.5 mg/dL. Etiology of acute kidney injury is secondary to acute tubular necro sis, obstructive uropathy. The patient's renal function has improved with supportive care. The julianne guadalupe was evaluated by Urology. No plans for intervention at this time. At this point, continue cu rrent treatment plan, supportive care, renally dose all meds. 2. Bilateral hydronephrosis. Etiology is concerning for possible obstruction. The patient is bein g followed by urology, will follow up recommendations. 3. Renal mass, likely suspicious for renal cell carcinoma. Continue to monitor. Follow up with id urology for recommendations. 4. Mineral bone disorder. Continue to monitor calcium and phosphorus levels. 5. Anemia. Continue to monitor hemoglobin and hematocrit levels. Defer Epogen in the setting of p ossible renal cell carcinoma. 6. Volume overload, congestive heart failure. The patient's IV fluids were discontinued. We will start the patient on Lasix 20 mg IV daily, monitor renal function and electrolytes closely. 7. Ventilator dependent respiratory failure. Vent settings reviewed. ABG is reviewed. 8. Dysphagia, status post percutaneous endoscopic gastrostomy. Continue tube feeding. 9. Chronic encephalopathy. Etiology is multifactorial. Continue to monitor. 10. Sepsis secondary to healthcare-associated pneumonia and urinary tract infection. Continue curr ent antibiotic regimen. 11. Esophagitis/gastritis. Continue proton pump inhibitor. 12. Diabetes, continue Accu-Cheks and sliding scale. 13. Decubitus wound. Continue wound care. 14. Arrhythmia. Continue to monitor. Follow up with cardiology. Dictated By: JACOB GOMEZ/LESLY Conf#: [id number] DID#: [id number]
--- NOTE | 2017-02-04 12:49 | PN ---
DATE: 02/04/2017 SUBJECTIVE: No acute changes. The patient is nonverbal, noncommunicative, lying comfortably in bed , afebrile. LABORATORIES: WBC 4.7, platelets 90, neutrophils 82.9, no bands. BUN 66, creatinine 1.70. INDWELLINGS: Trach, PEG, Lopez, PICC line placed on 01/28/2017. ANTIMICROBIALS: 1. Ciprofloxacin. 2. Meropenem. 3. Zyvox, day #10. PHYSICAL EXAMINATION: GENERAL: Chronically ill-appearing, elderly man who is nonverbal and noncommunicative. The patient is in no distress. HEENT: Head atraumatic, normocephalic. Sclerae anicteric. Buccal mucosa dry. NECK: Supple. Tracheostomy present. CHEST: Rise symmetrical. Breath sounds diminished to bases. HEART: S1, S2. ABDOMEN: Soft. Bowel tones hypoactive. EXTREMITIES: No cyanosis but bilateral trace edema. ASSESSMENT: 1. Status post severe sepsis with shock. 2. Polymicrobial bacteremia with repeat blood cultures on 01/29/2017 negative. 3. Status post Proteus mirabilis urinary tract infection. 4. Resolving healthcare-associated pneumonia. 5. Multiple unstageable decubitus. 6. Bilateral hydronephrosis and possible renal cell carcinoma. 7. Chronic encephalopathy and acute renal failure. PLAN: The patient remains hemodynamically stable, clinically unchanged. He is being followed by [facility], completing antibiotics. He is FULL CODE. Dictated By: CHRISS RIVAS COMPUTER FORENSIC SPECIALIST for BETHANY CASTILLO/NTS Conf#: [id number] DID#: [id number]
[2017-02-04] MEDS: SOD CHLORIDE 0.9% 1,000 ML IV SCH ×2 (13:07→14:56)
--- NOTE | 2017-02-04 13:15 | PN ---
Date/Time of Note Date/Time of Note DATE: 02/04/17 TIME: 13:09 Assessment/Plan VTE Prophylaxis VTE Prophylaxis Intervention: SCD's Lines/Catheters IV [facility]): Peripheral IV Urinary Cath still in place: Yes Reason Cath still needed: pres ulcer contaminated by urine Assessment/Plan Assessment/Plan 1. Sepsis with underlying septic shock secondary to healthcare-associated pneumonia and urinary tract infection along with bacteremia - Klebsiella/ Pseudomonas/Proteus spp/coag negative staph. Continue antibiotics as per infectious diseases. off of pressor support 2. Ventilator-dependent respiratory failure. Continue mechanical ventilator management as per pulmonology. 3. Acute on chronic kidney disease. The patient is being followed by nephrology. Use nephrotoxic drugs with caution. 4. Abdominal hernia - GI c/s since near PEG tube - Abd Xray 5. Normocytic normochromic anemia requiring blood transfusion. Etiology unclear. Stool for OB x1 negative. Status post multiple blood transfusions. Continue Protonix drip. 6. Gross hematuria. Etiology unclear. This has been resolving. Status post evaluation by urology. 7. Hypernatremia, most probably secondary to dehydration. Resolved with free water via G-tube. 8. Hyperkalemia. Resolved. 9. Dysphagia. Status post percutaneous endoscopic gastrostomy tube. 10. Paroxysmal atrial fibrillation. Currently in sinus rhythm. Cardiology evaluation ordered. 11. Multiple decubitus wounds. Continue local wound care. 12. Fluid, electrolytes and nutrition. Continue G-tube feedings. 13. Deep venous thrombosis prophylaxis. Bilateral sequential compression devices. 14. Gastrointestinal prophylaxis. On proton pump inhibitors. PLAN: Continue antibiotics as per infectious diseases. GI c/s pending. Abd x- ray. as per clinical course. this progress note took greater than 30 minutes to complete Subjective 24 Hr Interval Summary Free Text/Dictation Patient had no overnight events. No acute changes. Spoke to the nurse about the care plan. 15 minutes spent. Exam/Review of Systems Vital Signs Vitals Vital Signs Date Time Temp Pulse Resp B/P Pulse Ox O2 Delivery O2 Flow Rate FiO2 02/04/17 13:01 84 02/04/17 11:59 98.5 16 110/65 99 02/04/17 11:52 30 02/01/17 00:00 Mechanical Ventilator Intake and Output 02/03/17 02/03/17 02/04/17 15:00 23:00 07:00 Intake Total 2000 ml 1500 ml 1500 ml Output Total 1500 ml 1200 ml 2300 ml Balance 500 ml 300 ml -800 ml Exam Gen Nick: NAD, Alert to self HEENT: NC/AT, PERRLA NECK: supple, no thyromegaly, trach is midline - C/D/I THORAX: symmetrical, no obvious deformities CV: S1S2, RRR, no M/G/R Lungs: diminished bibasilar breath sounds, no wheezing Abd: soft, NT, +BS, + hernia near the peg site - c/d/i EXT: no edema, no ecchymosis, no clubbing, FROM Neuro: alert to self Psych: cannot assess 2/2 to mentation Skin: C/D/I Results Result Diagram: 02/04/1740 02/04/17 0540 Results 24 hrs Laboratory Tests Test 02/03/17 17:18 02/03/17 19:05 02/04/17 00:30 02/04/17 05:40 Bedside Glucose 138 126 Hemoglobin 8.4 L 9.2 L Hematocrit 26.1 L 29.1 L White Blood Count 4.7 #L Red Blood Count 3.02 #L Mean Corpuscular Volume 96.4 Mean Corpuscular Hemoglobin 30.5 Mean Corpuscular Hemoglobin Concent 31.6 L Red Cell Distribution Width 18.6 H Platelet Count 90 L Mean Platelet Volume 11.3 H Neutrophils % 82.9 H Lymphocytes % 7.2 L Monocytes % 5.1 Eosinophils % 4.2 Basophils % 0.2 Nucleated Red Blood Cells % 0.0 Neutrophils # 3.9 Lymphocytes # 0.3 L Monocytes # 0.2 L Eosinophils # 0.2 Basophils # 0.0 Nucleated Red Blood Cells # 0.0 Sodium Level 142 Potassium Level 3.9 Chloride Level 117 H Carbon Dioxide Level 17 L Anion Gap 12 Blood Urea Nitrogen 66 H Creatinine 1.70 H Glucose Level 146 # Calcium Level 8.3 L Phosphorus Level 4.3 Magnesium Level 2.0 Test 02/04/17 06:10 02/04/17 07:57 02/04/17 12:30 02/04/17 12:33 Bedside Glucose 133 161 156 Lab Scanned Report BLOOD TRANSFUSION Medications Medications Current Medications Ondansetron HCl (Zofran Inj) 4 mg Q6H PRN IV NAUSEA AND/OR VOMITING; Start 07/04 at 00:00 Acetaminophen (Tylenol Liquid) 650 mg Q6H PRN PO PAIN LEVEL 1-3 OR FEVER; Start 01/26/17 at 00:00 Morphine Sulfate (morphine) 2 mg Q4H PRN IV PAIN LEVEL 7-10 Last administered on 01/29/17 03:41; Admin Dose 2 MG; Start 01/26/17 at 00:00 Lorazepam 1 mg 1 mg Q2H PRN IV ANXIETY; Start 01/26/17 at 00:00 Linezolid 300 ml @ 300 mls/hr Q12 IVPB Last administered on 02/04/17 09:04; Admin Dose 300 MLS/HR; Start 01/26/17 at 00:00 Meropenem 100 ml @ 200 mls/hr Q12 IVPB Last administered on 02/04/17 09:04; Admin Dose 200 MLS/HR; Start 01/26/17 at 09:00 Pantoprazole/ Sodium Chloride (Protonix Iv/NS) 100 ml @ 10 mls/hr Q10H IV Last administered on 02/04/17 09:06; Admin Dose 10 MLS/HR; Start 01/26/17 at 06 :00 Collagenase (Santyl) 1 applic DAILY TOP Last administered on 02/04/17 09:06; Admin Dose 1 APPLIC; Start 01/26/17 at 09:00 Hydrogen Peroxide (Hydrogen Peroxide) 1 applic QHS TOP Last administered on 20:40; Admin Dose 1 APPLIC; Start 01/26/17 at 21:00 Hydrogen Peroxide (Hydrogen Peroxide) 1 applic DAILY TOP Last administered on 09:05; Admin Dose 1 APPLIC; Start 01/27/17 at 09:00 Miscellaneous Information (Pending Santyl Order For Wound Care) This patient carrion... PRN PRN XX WOUND CARE; Start 01/27/17 at 11:00 Sodium Hypochlorite 1 applic 1 applic DAILY IRR Last administered on 02/04/17 09:03; Admin Dose 1 APPLIC; Start 01/28/17 at 21:00 Ciprofloxacin/ Dextrose (Cipro Ivpb) 100 ml @ 100 mls/hr Q12 IVPB Last administered on 02/04/17 09:04; Admin Dose 100 MLS/HR; Start 01/29/17 at 21:00 Insulin Aspart (Novolog Insulin Pen) (Adult SC Insulin - Mild Algorithm)... Q6 SC Last administered on 02/04/17 12:49; Admin Dose 1 UNIT; Start 02/01/17 at 11:30 Miscellaneous Information 1 ea NOTE XX ; Start 02/01/17 at 10:30 Glucose (Glutose) 15 gm Q15M PRN PO DECREASED GLUCOSE; Start 02/01/17 at 10:30 Glucose (Glutose) 22.5 gm Q15M PRN PO DECREASED GLUCOSE; Start 02/01/17 at 10: 30 Dextrose (D50w Syringe) 25 ml Q15M PRN IV DECREASED GLUCOSE; Start 02/01/17 at 10:30 Dextrose (D50w Syringe) 50 ml Q15M PRN IV DECREASED GLUCOSE; Start 02/01/17 at 10:30 Glucagon (Glucagen) 1 mg Q15M PRN IM DECREASED GLUCOSE; Start 02/01/17 at 10:30 Glucose (Glutose) 15 gm Q15M PRN BUCCAL DECREASED GLUCOSE; Start 02/01/17 at 10 :30 Metoclopramide HCl 5 mg 5 mg Q6 IV Last administered on 02/04/17 12:33; Admin Dose 5 MG; Start 02/02/17 at 17:00 Sodium Chloride (NS) 1,000 ml @ 75 mls/hr [id number] IV ; Start 02/04/17 at 13:07 ; Status FATIMAH ORTIZ MD Feb 04, 2017 13:15
--- NOTE | 2017-02-04 14:04 | CONS ---
DATE OF ADMISSION: 01/26/2017 DATE OF CONSULTATION: TYPE OF CONSULTATION: Gastroenterology. Dear Dr. Alvarez, Thank you for asking me to see Mr. Robles in GI consultation. HISTORY OF PRESENT ILLNESS: As you know, the patient is a 71-year-old white gentleman who, at this time, is referred to me because of the history of a ventral hernia. The [facility] is [facility], is unable to give me any history. However, he does have a gastrostomy tube in place, and he is tolerating the G-tube feeding. He has a large ventral hernia. The patient has no history of nause a, no vomiting, no GI bleeding, no fever. I discussed with nurse who takes care of the patient. Th ere is no additional history that is of significance. REVIEW OF SYSTEM: Positive for chronic lethargy, respiratory failure status post tracheostomy, elec trolyte imbalance, anemia, dysphagia status post G-tube placement, and atrial fibrillation. PHYSICAL EXAMINATION: GENERAL: The patient is a 71-year-old white male who, at this time, is very lethargic, is ventilato r dependent, status post tracheostomy. CARDIOVASCULAR: Normal heart sounds. RESPIRATORY: Normal breath sounds. ABDOMEN: Showed a large grapefruit sized ventral hernia. G-tube noted in place, tolerating the fee ding well. LABORATORY WORKUP: Hemoglobin is 9.2, WBC count is 4700. The potassium is 3.9. IMAGING DATA: The CAT scan of the abdomen shows multiple findings. Please review the chart. He do es have kidney mass, so renal cell carcinoma should be ruled out as mentioned in the CAT scan report . Bilateral hydronephrosis, ventral hernia, and please read the report for more information. CLINICAL IMPRESSION: 1. The patient has a ventral hernia which is not strangulated. No incarceration. 2. Status post G-tube placement. PLAN: Recommend an abdominal binder, recommend surgical consultation if there is a major concern. I do not think the patient is a surgical candidate. Once again, Dr. Alvarez, thank you for this consultation. Dictated By: ERNA RODRÍGUEZ MD NC/NTS Conf#: [id number] DID#: [id number] CC: FATIMAH ALVAREZ MD;*EndCC*
--- NOTE | 2017-02-04 15:17 | CONS ---
Date/Time of Note Date/Time of Note DATE: 02/04/17 TIME: 15:14 Assessment/Plan Assessment/Plan Additional Assessment/Plan Sinus arrhythmia with PACs Sepsis Respiratory failure Acute kidney injury Encephalopathy Preserved ejection fraction Pericardial effusion Anemia -Echo with small to medium sized pericardial effusion. Otherwise preserved left ventricular systolic function. Telemetry reviewed with evidence of sinus rhythm with PACs. Maintain potassium above 4.0 and magnesium above 2.0. Consultation Date/Type/Reason Admit Date/Time Jan 26, 2017 at 01:35 Initial Consult Date 01/27/17 Type of Consultation: cv 24 HR Interval Summary Free Text/Dictation Patient seen and examined Exam/Review of Systems Vital Signs Vitals Vital Signs Date Time Temp Pulse Resp B/P Pulse Ox O2 Delivery O2 Flow Rate FiO2 02/04/17 13:41 97 16 98 30 02/04/17 11:59 98.5 110/65 02/01/17 00:00 Mechanical Ventilator Intake and Output 02/03/17 02/03/17 02/04/17 15:00 23:00 07:00 Intake Total 2000 ml 1500 ml 1500 ml Output Total 1500 ml 1200 ml 2300 ml Balance 500 ml 300 ml -800 ml Exam No apparent distress Head: normocephalic Neck: other (Tracheostomy) Respiratory: other (Coarse breath sounds bilaterally, no wheezing) Cardiovascular: other (S1-S2 heard), regular rate and rhythm Gastrointestinal: bowel sounds, non-tender, soft Extremities: edema Results Result Diagram: 02/04/17 0540 02/04/17 0540 Results 24 hrs Laboratory Tests Test 02/03/17 17:18 02/03/17 19:05 02/04/17 00:30 02/04/17 05:40 Bedside Glucose 138 126 Hemoglobin 8.4 L 9.2 L Hematocrit 26.1 L 29.1 L White Blood Count 4.7 #L Red Blood Count 3.02 #L Mean Corpuscular Volume 96.4 Mean Corpuscular Hemoglobin 30.5 Mean Corpuscular Hemoglobin Concent 31.6 L Red Cell Distribution Width 18.6 H Platelet Count 90 L Mean Platelet Volume 11.3 H Neutrophils % 82.9 H Lymphocytes % 7.2 L Monocytes % 5.1 Eosinophils % 4.2 Basophils % 0.2 Nucleated Red Blood Cells % 0.0 Neutrophils # 3.9 Lymphocytes # 0.3 L Monocytes # 0.2 L Eosinophils # 0.2 Basophils # 0.0 Nucleated Red Blood Cells # 0.0 Sodium Level 142 Potassium Level 3.9 Chloride Level 117 H Carbon Dioxide Level 17 L Anion Gap 12 Blood Urea Nitrogen 66 H Creatinine 1.70 H Glucose Level 146 # Calcium Level 8.3 L Phosphorus Level 4.3 Magnesium Level 2.0 Test 02/04/17 06:10 02/04/17 07:57 02/04/17 12:30 02/04/17 12:33 Bedside Glucose 133 161 156 Lab Scanned Report BLOOD TRANSFUSION Medications Medications Current Medications Ondansetron HCl (Zofran Inj) 4 mg Q6H PRN IV NAUSEA AND/OR VOMITING; Start 07/04 at 00:00 Acetaminophen (Tylenol Liquid) 650 mg Q6H PRN PO PAIN LEVEL 1-3 OR FEVER; Start 01/26/17 at 00:00 Morphine Sulfate (morphine) 2 mg Q4H PRN IV PAIN LEVEL 7-10 Last administered on 01/29/17 03:41; Admin Dose 2 MG; Start 01/26/17 at 00:00 Lorazepam 1 mg 1 mg Q2H PRN IV ANXIETY; Start 01/26/17 at 00:00 Linezolid 300 ml @ 300 mls/hr Q12 IVPB Last administered on 02/04/17 09:04; Admin Dose 300 MLS/HR; Start 01/26/17 at 00:00 Meropenem 100 ml @ 200 mls/hr Q12 IVPB Last administered on 02/04/17 09:04; Admin Dose 200 MLS/HR; Start 01/26/17 at 09:00 Pantoprazole/ Sodium Chloride (Protonix Iv/NS) 100 ml @ 10 mls/hr Q10H IV Last administered on 02/04/17 09:06; Admin Dose 10 MLS/HR; Start 01/26/17 at 06 :00 Collagenase (Santyl) 1 applic DAILY TOP Last administered on 02/04/17 09:06; Admin Dose 1 APPLIC; Start 01/26/17 at 09:00 Hydrogen Peroxide (Hydrogen Peroxide) 1 applic QHS TOP Last administered on 20:40; Admin Dose 1 APPLIC; Start 01/26/17 at 21:00 Hydrogen Peroxide (Hydrogen Peroxide) 1 applic DAILY TOP Last administered on 09:05; Admin Dose 1 APPLIC; Start 01/27/17 at 09:00 Miscellaneous Information (Pending Santyl Order For Wound Care) This patient carrion... PRN PRN XX WOUND CARE; Start 01/27/17 at 11:00 Sodium Hypochlorite 1 applic 1 applic DAILY IRR Last administered on 02/04/17 09:03; Admin Dose 1 APPLIC; Start 01/28/17 at 21:00 Ciprofloxacin/ Dextrose (Cipro Ivpb) 100 ml @ 100 mls/hr Q12 IVPB Last administered on 02/04/17 09:04; Admin Dose 100 MLS/HR; Start 01/29/17 at 21:00 Insulin Aspart (Novolog Insulin Pen) (Adult SC Insulin - Mild Algorithm)... Q6 SC Last administered on 02/04/17 12:49; Admin Dose 1 UNIT; Start 02/01/17 at 11:30 Miscellaneous Information 1 ea NOTE XX ; Start 02/01/17 at 10:30 Glucose (Glutose) 15 gm Q15M PRN PO DECREASED GLUCOSE; Start 02/01/17 at 10:30 Glucose (Glutose) 22.5 gm Q15M PRN PO DECREASED GLUCOSE; Start 02/01/17 at 10: 30 Dextrose (D50w Syringe) 25 ml Q15M PRN IV DECREASED GLUCOSE; Start 02/01/17 at 10:30 Dextrose (D50w Syringe) 50 ml Q15M PRN IV DECREASED GLUCOSE; Start 02/01/17 at 10:30 Glucagon (Glucagen) 1 mg Q15M PRN IM DECREASED GLUCOSE; Start 02/01/17 at 10:30 Glucose (Glutose) 15 gm Q15M PRN BUCCAL DECREASED GLUCOSE; Start 02/01/17 at 10 :30 Metoclopramide HCl 5 mg 5 mg Q6 IV Last administered on 02/04/17 12:33; Admin Dose 5 MG; Start 02/02/17 at 17:00 Sodium Chloride (NS) 1,000 ml @ 75 mls/hr [id number] IV Last administered on 02/04 14:56; Admin Dose 75 MLS/HR; Start 02/04/17 at 13:07 Patricio De La Vega DO Feb 04, 2017 15:17
--- NOTE | 2017-02-04 16:12 | CONS ---
Date/Time of Note Date/Time of Note DATE: 02/04/17 TIME: 16:04 Assessment/Plan Assessment/Plan Additional Assessment/Plan Suggest continue with current full code I will reach out to patient's agent I do not believe there is an indication for bioethics meeting once again per my discussion above Consultation Date/Type/Reason Admit Date/Time Jan 26, 2017 at 01:35 Date of Consultation: Jan 31, 2017 Type of Consultation: Palliative care Reason for Consultation This patient is a 71-year-old gentleman who is well known to me from prior hospitalization. Patient was admitted to [facility] 2016 with sepsis syndrome presumed to be secondary to both pneumonia and urinary tract etiologies patient also has a history of multiple stage IV decubiti. He presented with multiple fluid and electrolyte abnormalities chronic anemia patient is vegetative pegged and trached chronically. Patient evaluation in the emergency room showed he had a hemoglobin level of 5.5 BUN of 333 and a creatinine 4.7. Patient was admitted to the intensive care unit but has subsequently been transferred to medical surgical floor. During patient's last hospitalization I was in contact with his agent for healthcare, at that time patient's hospitalization was similar with respiratory failure sepsis syndrome. Subsequently patient case was referred to bioethics for clarification of CODE STATUS and ongoing level of care. Patient's DPOA was very clear that patient would want to continue to live in his current condition. He had paperwork that named him as the only decision maker for patient's ongoing level of care. It was his understanding the patient would want to be kept alive under any circumstances and not change his CODE STATUS to a lower level of intervention when and if he would decompensate once again. I will reach out to his agent once again open up line of discussion for no other reason other than to document to continue patient's full CODE STATUS. Hx of Present Illness Patient is noncommunicative all the information as per above Psychological: other Social History Smoking Status: Unknown if ever smoked Exam/Review of Systems Vital Signs Vitals Vital Signs Date Time Temp Pulse Resp B/P Pulse Ox O2 Delivery O2 Flow Rate FiO2 02/04/17 15:48 98.5 84 17 106/58 98 02/04/17 15:19 30 02/01/17 00:00 Mechanical Ventilator Intake and Output 02/03/17 02/03/17 02/04/17 15:00 23:00 07:00 Intake Total 2000 ml 1500 ml 1500 ml Output Total 1500 ml 1200 ml 2300 ml Balance 500 ml 300 ml -800 ml Results Result Diagram: 02/04/17 0540 02/04/17 0540 Results 24 hrs Laboratory Tests Test 02/03/17 17:18 02/03/17 19:05 02/04/17 00:30 02/04/17 05:40 Bedside Glucose 138 126 Hemoglobin 8.4 L 9.2 L Hematocrit 26.1 L 29.1 L White Blood Count 4.7 #L Red Blood Count 3.02 #L Mean Corpuscular Volume 96.4 Mean Corpuscular Hemoglobin 30.5 Mean Corpuscular Hemoglobin Concent 31.6 L Red Cell Distribution Width 18.6 H Platelet Count 90 L Mean Platelet Volume 11.3 H Neutrophils % 82.9 H Lymphocytes % 7.2 L Monocytes % 5.1 Eosinophils % 4.2 Basophils % 0.2 Nucleated Red Blood Cells % 0.0 Neutrophils # 3.9 Lymphocytes # 0.3 L Monocytes # 0.2 L Eosinophils # 0.2 Basophils # 0.0 Nucleated Red Blood Cells # 0.0 Sodium Level 142 Potassium Level 3.9 Chloride Level 117 H Carbon Dioxide Level 17 L Anion Gap 12 Blood Urea Nitrogen 66 H Creatinine 1.70 H Glucose Level 146 # Calcium Level 8.3 L Phosphorus Level 4.3 Magnesium Level 2.0 Test 02/04/17 06:10 02/04/17 07:57 02/04/17 12:30 02/04/17 12:33 Bedside Glucose 133 161 156 Lab Scanned Report BLOOD TRANSFUSION Medications Medications Current Medications Ondansetron HCl (Zofran Inj) 4 mg Q6H PRN IV NAUSEA AND/OR VOMITING; Start 07/04 at 00:00 Acetaminophen (Tylenol Liquid) 650 mg Q6H PRN PO PAIN LEVEL 1-3 OR FEVER; Start 01/26/17 at 00:00 Morphine Sulfate (morphine) 2 mg Q4H PRN IV PAIN LEVEL 7-10 Last administered on 01/29/17 03:41; Admin Dose 2 MG; Start 01/26/17 at 00:00 Lorazepam 1 mg 1 mg Q2H PRN IV ANXIETY; Start 01/26/17 at 00:00 Linezolid 300 ml @ 300 mls/hr Q12 IVPB Last administered on 02/04/17 09:04; Admin Dose 300 MLS/HR; Start 01/26/17 at 00:00 Meropenem 100 ml @ 200 mls/hr Q12 IVPB Last administered on 02/04/17 09:04; Admin Dose 200 MLS/HR; Start 01/26/17 at 09:00 Pantoprazole/ Sodium Chloride (Protonix Iv/NS) 100 ml @ 10 mls/hr Q10H IV Last administered on 02/04/17 09:06; Admin Dose 10 MLS/HR; Start 01/26/17 at 06 :00 Collagenase (Santyl) 1 applic DAILY TOP Last administered on 02/04/17 09:06; Admin Dose 1 APPLIC; Start 01/26/17 at 09:00 Hydrogen Peroxide (Hydrogen Peroxide) 1 applic QHS TOP Last administered on 20:40; Admin Dose 1 APPLIC; Start 01/26/17 at 21:00 Hydrogen Peroxide (Hydrogen Peroxide) 1 applic DAILY TOP Last administered on 09:05; Admin Dose 1 APPLIC; Start 01/27/17 at 09:00 Miscellaneous Information (Pending Santyl Order For Wound Care) This patient carrion... PRN PRN XX WOUND CARE; Start 01/27/17 at 11:00 Sodium Hypochlorite 1 applic 1 applic DAILY IRR Last administered on 02/04/17 09:03; Admin Dose 1 APPLIC; Start 01/28/17 at 21:00 Ciprofloxacin/ Dextrose (Cipro Ivpb) 100 ml @ 100 mls/hr Q12 IVPB Last administered on 02/04/17 09:04; Admin Dose 100 MLS/HR; Start 01/29/17 at 21:00 Insulin Aspart (Novolog Insulin Pen) (Adult SC Insulin - Mild Algorithm)... Q6 SC Last administered on 02/04/17 12:49; Admin Dose 1 UNIT; Start 02/01/17 at 11:30 Miscellaneous Information 1 ea NOTE XX ; Start 02/01/17 at 10:30 Glucose (Glutose) 15 gm Q15M PRN PO DECREASED GLUCOSE; Start 02/01/17 at 10:30 Glucose (Glutose) 22.5 gm Q15M PRN PO DECREASED GLUCOSE; Start 02/01/17 at 10: 30 Dextrose (D50w Syringe) 25 ml Q15M PRN IV DECREASED GLUCOSE; Start 02/01/17 at 10:30 Dextrose (D50w Syringe) 50 ml Q15M PRN IV DECREASED GLUCOSE; Start 02/01/17 at 10:30 Glucagon (Glucagen) 1 mg Q15M PRN IM DECREASED GLUCOSE; Start 02/01/17 at 10:30 Glucose (Glutose) 15 gm Q15M PRN BUCCAL DECREASED GLUCOSE; Start 02/01/17 at 10 :30 Metoclopramide HCl 5 mg 5 mg Q6 IV Last administered on 02/04/17 12:33; Admin Dose 5 MG; Start 02/02/17 at 17:00 Sodium Chloride (NS) 1,000 ml @ 75 mls/hr [id number] IV Last administered on 02/04 14:56; Admin Dose 75 MLS/HR; Start 02/04/17 at 13:07 NATALIE LOMELI Feb 04, 2017 16:12
[2017-02-05] VITALS (23 sets, daily range): BP systolic 99–116; BP diastolic 56–69; PULSE 87–100; RESP 18–28
[2017-02-05] MEDS: METOCLOPRAMIDE 10 MG INJ IV SCH ×4 (00:30→17:12)
[2017-02-05] MEDS: Insulin NOVOLOG SS MILD Algorithm (NPO/TPN/ENTERAL FEEDS) SC SCH ×4 (00:33→17:20)
[2017-02-05] MEDS: SOD CHLORIDE 0.9% 1,000 ML IV SCH ×2 (02:27→05:03)
[2017-02-05] MEDS: PANTOPRAZOLE IV 80 MG in SOD CHLORIDE 0.9% 100 ML IV SCH (05:11)
[2017-02-05 07:42] LABS: ADD SCAN DIFF NO
--- NOTE | 2017-02-05 07:46 | RADRPT ---
PROCEDURE: XR Abdomen. CLINICAL INDICATION: Abdominal pain TECHNIQUE: A single AP view of the abdomen was obtained. COMPARISON: None. FINDINGS: The abdomen is incompletely imaged. There moderate air-filled distension of the sigmoid and descend ing colon. No abnormal soft tissue calcifications are seen. The visualized portions of the lung bas es are clear. The osseous structures are unremarkable. IMPRESSION: Suboptimal evaluation. The abdomen is incompletely imaged on this single view. There is moderate a ir-filled distension of the descending and sigmoid colon. Consider CT of the abdomen and pelvis for further evaluation. RPTAT: HH .Maria M Araiza MD, MD Date Time Electronically viewed and signed by .Maria M Araiza MD, on 02/05/2017 07:45 .G/
[2017-02-05 07:49] LABS: ABNORMAL IP MESSAGE 1; EOSINOPHILS # 0.2 10^3/ul (0.0-0.5); EOSINOPHILS % 5.2 % (0.0-7.0); HEMATOCRIT 24.8 % (42.0-52.0); HEMOGLOBIN 7.8 g/dl (14.0-18.0); LYMPHOCYTES # 0.3 10^3/ul (0.8-2.9); LYMPHOCYTES % 8.4 % (15.0-51.0); MEAN CORPUSCULAR HEMOGLOBIN 30.1 pg (29.0-33.0); MEAN CORPUSCULAR HGB CONC 31.5 g/dl (32.0-37.0); MEAN CORPUSCULAR VOLUME 95.8 fl (82.0-101.0); MEAN PLATELET VOLUME 11.8 fl (7.4-10.4); MONOCYTE # 0.3 10^3/ul (0.3-0.9); MONOCYTES % 8.2 % (0.0-11.0); NEUTROPHIL # 2.9 10^3/ul (1.6-7.5); NEUTROPHILS % 77.7 % (39.0-77.0); PLATELET COUNT 64 10^3/UL (140-415); RED BLOOD COUNT 2.59 10^6/ul (4.70-6.10); RED CELL DISTRIBUTION WIDTH 17.9 % (11.5-14.5); WHITE BLOOD COUNT 3.7 10^3/ul (4.8-10.8)
[2017-02-05 08:10] LABS: CALCIUM 7.8 mg/dl (8.4-10.2); CREATININE 1.5 mg/dl (0.61-1.24)
[2017-02-05 08:17] LABS: PHOSPHORUS 3.4 mg/dl (2.5-4.9)
[2017-02-05] MEDS: SEVELAMER CARBONATE 0.8 GM PKT PO SCH ×3 (08:40→17:12)
[2017-02-05] MEDS: CIPROFLOXACIN 200 MG/D5W IVPB 100 ML IVPB SCH (08:40)
[2017-02-05] MEDS: LINEZOLID 600 MG/D5W (PMX) 300 ML IVPB SCH (08:40)
[2017-02-05] MEDS: MEROPENEM 1 GM/100 ML (PMX) 100 ML IVPB SCH (08:41)
[2017-02-05] MEDS ORDERED: FUROSEMIDE 20 MG INJ IV ONE (09:00)
[2017-02-05] MEDS: SODIUM HYPOCHLORITE 0.125% 473 ML BTL IRR SCH ×2 (09:00→09:47)
[2017-02-05] MEDS: COLLAGENASE 30 GM TUBE TOP SCH (09:03)
[2017-02-05] MEDS: HYDROGEN PEROXIDE 118 ML TOP SCH ×2 (09:04→21:09)
[2017-02-05 09:44] LABS: PLATELET ESTIMATE PLT APPEAR DECREASED
--- NOTE | 2017-02-05 09:47 | PN ---
DATE: 02/05/2017 SUBJECTIVE: The patient is stable, no acute events overnight. No hemoptysis, hematemesis or hemato chezia. OBJECTIVE: VITAL SIGNS: Blood pressure is 99/60, respirations 20, pulse 92, temperature 98.6. I's AND O'S: The patient had 3.8 L in, 3 liters out. HEENT: Head is normocephalic. Pupils are reactive to light. NECK: Supple. HEART: Regular rate. LUNGS: Show diminished breath sounds at base. Positive rhonchi. ABDOMEN: Soft, nontender to palpation. No rebound or guarding. EXTREMITIES: Negative for clubbing, cyanosis. Positive edema upper and lower extremity. DERMATOLOGIC: No rashes. MUSCULOSKELETAL: No joint effusions. NEUROLOGIC: No change in exam. MEDICATIONS: The patient's medications have been reviewed. LABORATORY DATA: Shows white count 3.7, hemoglobin 7.8, platelet count is 64. Sodium 138, potassiu m 4.0, chloride 114, BUN , creatinine 1.50. ASSESSMENT AND PLAN: 1. Nonoliguric acute kidney injury on top of chronic kidney disease stage IV with a baseline creati nine 1.5 to 2.5 mg/dL. Etiology of acute kidney injury is secondary to acute tubular necrosis and o bstructive uropathy. The patient's renal function has slowly been improving. At this point, contin ue current treatment plan, supportive care, renally dose all meds. 2. Bilateral hydronephrosis. Etiology is concerning for possible mechanical obstruction. The maria luz ent was seen by urology. No further intervention planned at this time. 3. Renal mass suspicious for renal cell carcinoma. Continue to monitor. Follow up with urology fo r recommendations. 4. Mineral bone disorder. Continue to monitor calcium and phosphorus levels. 5. Anemia. Continue to monitor hemoglobin and hematocrit levels. 6. Volume overload, congestive heart failure. The patient was given a dose of diuretic therapy yes terday. We will continue Lasix 20 mg IV daily. Will discontinue IV fluids and monitor blood pressu re closely. 7. Ventilator dependent respiratory failure. Vent settings have been reviewed. ABG has been revie wed. Continue to monitor. 8. Dysphagia status post percutaneous endoscopic gastrostomy. Continue tube feeding. 9. Chronic encephalopathy. Etiology is multifactorial. Continue to observe. 10. Sepsis secondary to healthcare-associated pneumonia and urinary tract infection. Continue curr ent antibiotic regimen. 11. Esophagitis/gastritis Continue PPI. 12. Diabetes. Continue Accu-Cheks and insulin sliding scale. 13. Decubitus wound. Continue wound care. 14. Sinus arrhythmia. Continue to monitor. Follow up with Cardiology. Dictated By: JACOB GOMEZ/LESLY Conf#: [id number] DID#: [id number]
--- NOTE | 2017-02-05 11:35 | CONS ---
Date/Time of Note Date/Time of Note DATE: 02/05/17 TIME: 11:33 Assessment/Plan Assessment/Plan Additional Assessment/Plan Sinus arrhythmia with PACs Sepsis Respiratory failure Acute kidney injury Encephalopathy Preserved ejection fraction Pericardial effusion Anemia -Telemetry reviewed with evidence of sinus rhythm with PACs. Maintain potassium above 4.0 and magnesium above 2.0. No new cardiac orders at the current time. Consultation Date/Type/Reason Admit Date/Time Jan 26, 2017 at 01:35 Initial Consult Date 01/27/17 Type of Consultation: cv 24 HR Interval Summary Free Text/Dictation Patient seen and examined Exam/Review of Systems Vital Signs Vitals Vital Signs Date Time Temp Pulse Resp B/P Pulse Ox O2 Delivery O2 Flow Rate FiO2 02/05/17 08:53 96 02/05/17 07:56 98.0 18 105/65 96 02/05/17 05:36 30 Intake and Output 02/04/17 02/04/17 02/05/17 15:00 23:00 07:00 Intake Total 500 ml 1800 ml 1500 ml Output Total 1800 ml 1200 ml Balance 500 ml 0 ml 300 ml Exam No apparent distress Head: normocephalic Neck: other (Tracheostomy) Respiratory: other (Coarse breath sounds bilaterally, no wheezing) Cardiovascular: other (S1-S2 heard), regular rate and rhythm Gastrointestinal: bowel sounds, non-tender, other (Hernia), soft Extremities: edema Results Result Diagram: 02/05/17 0620 02/05/17 0620 Results 24 hrs Laboratory Tests Test 02/04/17 12:30 02/04/17 12:33 02/04/17 17:13 02/05/17 00:21 Bedside Glucose 161 156 124 159 Test 02/05/17 05:06 02/05/17 06:20 Bedside Glucose 136 White Blood Count 3.7 #L Red Blood Count 2.59 L Hemoglobin 7.8 L Hematocrit 24.8 L Mean Corpuscular Volume 95.8 Mean Corpuscular Hemoglobin 30.1 Mean Corpuscular Hemoglobin Concent 31.5 L Red Cell Distribution Width 17.9 H Platelet Count 64 #L Mean Platelet Volume 11.8 H Neutrophils % 77.7 H Lymphocytes % 8.4 L Monocytes % 8.2 Eosinophils % 5.2 Basophils % 0.0 Nucleated Red Blood Cells % 0.0 Neutrophils # 2.9 Lymphocytes # 0.3 L Monocytes # 0.3 Eosinophils # 0.2 Basophils # 0.0 Nucleated Red Blood Cells # 0.0 Differential Comment AUTO w/SCAN Platelet Estimate PLT APPEAR DECREASED Sodium Level 138 Potassium Level 4.0 Chloride Level 114 H Carbon Dioxide Level 18 L Anion Gap 10 Blood Urea Nitrogen 66 H Creatinine 1.50 H Glucose Level 125 Calcium Level 7.8 L Phosphorus Level 3.4 Magnesium Level 2.0 Medications Medications Current Medications Ondansetron HCl (Zofran Inj) 4 mg Q6H PRN IV NAUSEA AND/OR VOMITING; Start 07/04 at 00:00 Acetaminophen (Tylenol Liquid) 650 mg Q6H PRN PO PAIN LEVEL 1-3 OR FEVER; Start 01/26/17 at 00:00 Morphine Sulfate (morphine) 2 mg Q4H PRN IV PAIN LEVEL 7-10 Last administered on 01/29/17 03:41; Admin Dose 2 MG; Start 01/26/17 at 00:00 Lorazepam 1 mg 1 mg Q2H PRN IV ANXIETY; Start 01/26/17 at 00:00 Linezolid 300 ml @ 300 mls/hr Q12 IVPB Last administered on 02/05/17 08:40; Admin Dose 300 MLS/HR; Start 01/26/17 at 00:00 Meropenem 100 ml @ 200 mls/hr Q12 IVPB Last administered on 02/05/17 08:41; Admin Dose 200 MLS/HR; Start 01/26/17 at 09:00 Pantoprazole/ Sodium Chloride (Protonix Iv/NS) 100 ml @ 10 mls/hr Q10H IV Last administered on 02/05/17 05:11; Admin Dose 10 MLS/HR; Start 01/26/17 at 06 :00 Collagenase (Santyl) 1 applic DAILY TOP Last administered on 02/05/17 09:03; Admin Dose 1 APPLIC; Start 01/26/17 at 09:00 Hydrogen Peroxide (Hydrogen Peroxide) 1 applic QHS TOP Last administered on 21:41; Admin Dose 1 APPLIC; Start 01/26/17 at 21:00 Hydrogen Peroxide (Hydrogen Peroxide) 1 applic DAILY TOP Last administered on 09:04; Admin Dose 1 APPLIC; Start 01/27/17 at 09:00 Miscellaneous Information (Pending Santyl Order For Wound Care) This patient carrion... PRN PRN XX WOUND CARE; Start 01/27/17 at 11:00 Sodium Hypochlorite 1 applic 1 applic DAILY IRR Last administered on 02/05/17 09:47; Admin Dose 1 APPLIC; Start 01/28/17 at 21:00 Ciprofloxacin/ Dextrose (Cipro Ivpb) 100 ml @ 100 mls/hr Q12 IVPB Last administered on 02/05/17 08:40; Admin Dose 100 MLS/HR; Start 01/29/17 at 21:00 Insulin Aspart (Novolog Insulin Pen) (Adult SC Insulin - Mild Algorithm)... Q6 SC Last administered on 02/05/17 00:33; Admin Dose 1 UNIT; Start 02/01/17 at 11:30 Miscellaneous Information 1 ea NOTE XX ; Start 02/01/17 at 10:30 Glucose (Glutose) 15 gm Q15M PRN PO DECREASED GLUCOSE; Start 02/01/17 at 10:30 Glucose (Glutose) 22.5 gm Q15M PRN PO DECREASED GLUCOSE; Start 02/01/17 at 10: 30 Dextrose (D50w Syringe) 25 ml Q15M PRN IV DECREASED GLUCOSE; Start 02/01/17 at 10:30 Dextrose (D50w Syringe) 50 ml Q15M PRN IV DECREASED GLUCOSE; Start 02/01/17 at 10:30 Glucagon (Glucagen) 1 mg Q15M PRN IM DECREASED GLUCOSE; Start 02/01/17 at 10:30 Glucose (Glutose) 15 gm Q15M PRN BUCCAL DECREASED GLUCOSE; Start 02/01/17 at 10 :30 Metoclopramide HCl (Reglan) 5 mg Q6 IV Last administered on 02/05/17 05:03; Admin Dose 5 MG; Start 02/02/17 at 17:00 Patricio De La Vega DO Feb 05, 2017 11:35
--- NOTE | 2017-02-05 12:03 | PN ---
Date/Time of Note Date/Time of Note DATE: 02/05/17 TIME: 12:03 Assessment/Plan VTE Prophylaxis VTE Prophylaxis Intervention: SCD's Lines/Catheters IV Catheter Type (from [facility]): Peripheral IV Urinary Cath still in place: Yes Reason Cath still needed: urinary retention Assessment/Plan Assessment/Plan 71-year-old male with chronic encephalopathy with resultant ventilator dependence transferred from his SNF for sepsis. 1. Sepsis with underlying septic shock secondary to healthcare-associated pneumonia and urinary tract infection along with bacteremia - Klebsiella/ Pseudomonas/Proteus spp/coag negative staph. Continue antibiotics as per infectious diseases. off of pressor support 2. Ventilator-dependent respiratory failure. Continue mechanical ventilator management as per pulmonology. 3. Acute on chronic kidney disease. The patient is being followed by nephrology. 4. Abdominal hernia - no need for intervention per GI 5. Normocytic normochromic anemia requiring blood transfusion. Etiology unclear. Stool for OB x1 negative. Status post multiple blood transfusions. 6. Gross hematuria. Status post evaluation by urology. 7. Hypernatremia, most probably secondary to dehydration. Resolved with free water via G-tube. 8. Hyperkalemia. Resolved. 9. Dysphagia. Status post percutaneous endoscopic gastrostomy tube. 10. Paroxysmal atrial fibrillation. sp [id number] eval 11. Multiple decubitus wounds. Continue local wound care. 12. Fluid, electrolytes and nutrition. Continue G-tube feedings. 13. Deep venous thrombosis prophylaxis. Bilateral sequential compression devices. 14. Gastrointestinal prophylaxis. On proton pump inhibitors. PLAN: back to facility once IV abx are complete Subjective 24 Hr Interval Summary Free Text/Dictation Does not follow commands Exam/Review of Systems Vital Signs Vitals Vital Signs Date Time Temp Pulse Resp B/P Pulse Ox O2 Delivery O2 Flow Rate FiO2 02/05/17 11:58 98.5 94 18 105/65 98 02/05/17 05:36 30 Intake and Output 02/04/17 02/04/17 02/05/17 15:00 23:00 07:00 Intake Total 500 ml 1800 ml 1500 ml Output Total 1800 ml 1200 ml Balance 500 ml 0 ml 300 ml Exam nad, trached to vent no mrg lungs clear PEG site c/d/i, +large abd hernia no rashes Results Result Diagram: 02/05/17 0620 02/05/17 0620 Results 24 hrs Laboratory Tests Test 02/04/17 12:30 02/04/17 12:33 02/04/17 17:13 02/05/17 00:21 Bedside Glucose 161 156 124 159 Test 02/05/17 05:06 02/05/17 06:20 Bedside Glucose 136 White Blood Count 3.7 #L Red Blood Count 2.59 L Hemoglobin 7.8 L Hematocrit 24.8 L Mean Corpuscular Volume 95.8 Mean Corpuscular Hemoglobin 30.1 Mean Corpuscular Hemoglobin Concent 31.5 L Red Cell Distribution Width 17.9 H Platelet Count 64 #L Mean Platelet Volume 11.8 H Neutrophils % 77.7 H Lymphocytes % 8.4 L Monocytes % 8.2 Eosinophils % 5.2 Basophils % 0.0 Nucleated Red Blood Cells % 0.0 Neutrophils # 2.9 Lymphocytes # 0.3 L Monocytes # 0.3 Eosinophils # 0.2 Basophils # 0.0 Nucleated Red Blood Cells # 0.0 Differential Comment AUTO w/SCAN Platelet Estimate PLT APPEAR DECREASED Sodium Level 138 Potassium Level 4.0 Chloride Level 114 H Carbon Dioxide Level 18 L Anion Gap 10 Blood Urea Nitrogen 66 H Creatinine 1.50 H Glucose Level 125 Calcium Level 7.8 L Phosphorus Level 3.4 Magnesium Level 2.0 Medications Medications Current Medications Ondansetron HCl (Zofran Inj) 4 mg Q6H PRN IV NAUSEA AND/OR VOMITING; Start 07/04 at 00:00 Acetaminophen (Tylenol Liquid) 650 mg Q6H PRN PO PAIN LEVEL 1-3 OR FEVER; Start 01/26/17 at 00:00 Morphine Sulfate (morphine) 2 mg Q4H PRN IV PAIN LEVEL 7-10 Last administered on 01/29/17 03:41; Admin Dose 2 MG; Start 01/26/17 at 00:00 Lorazepam 1 mg 1 mg Q2H PRN IV ANXIETY; Start 01/26/17 at 00:00 Linezolid 300 ml @ 300 mls/hr Q12 IVPB Last administered on 02/05/17 08:40; Admin Dose 300 MLS/HR; Start 01/26/17 at 00:00 Meropenem 100 ml @ 200 mls/hr Q12 IVPB Last administered on 02/05/17 08:41; Admin Dose 200 MLS/HR; Start 01/26/17 at 09:00 Pantoprazole/ Sodium Chloride (Protonix Iv/NS) 100 ml @ 10 mls/hr Q10H IV Last administered on 02/05/17 05:11; Admin Dose 10 MLS/HR; Start 01/26/17 at 06 :00 Collagenase (Santyl) 1 applic DAILY TOP Last administered on 02/05/17 09:03; Admin Dose 1 APPLIC; Start 01/26/17 at 09:00 Hydrogen Peroxide (Hydrogen Peroxide) 1 applic QHS TOP Last administered on 21:41; Admin Dose 1 APPLIC; Start 01/26/17 at 21:00 Hydrogen Peroxide (Hydrogen Peroxide) 1 applic DAILY TOP Last administered on 09:04; Admin Dose 1 APPLIC; Start 01/27/17 at 09:00 Miscellaneous Information (Pending Santyl Order For Wound Care) This patient carrion... PRN PRN XX WOUND CARE; Start 01/27/17 at 11:00 Sodium Hypochlorite 1 applic 1 applic DAILY IRR Last administered on 02/05/17 09:47; Admin Dose 1 APPLIC; Start 01/28/17 at 21:00 Ciprofloxacin/ Dextrose (Cipro Ivpb) 100 ml @ 100 mls/hr Q12 IVPB Last administered on 02/05/17 08:40; Admin Dose 100 MLS/HR; Start 01/29/17 at 21:00 Insulin Aspart (Novolog Insulin Pen) (Adult SC Insulin - Mild Algorithm)... Q6 SC Last administered on 02/05/17 00:33; Admin Dose 1 UNIT; Start 02/01/17 at 11:30 Miscellaneous Information 1 ea NOTE XX ; Start 02/01/17 at 10:30 Glucose (Glutose) 15 gm Q15M PRN PO DECREASED GLUCOSE; Start 02/01/17 at 10:30 Glucose (Glutose) 22.5 gm Q15M PRN PO DECREASED GLUCOSE; Start 02/01/17 at 10: 30 Dextrose (D50w Syringe) 25 ml Q15M PRN IV DECREASED GLUCOSE; Start 02/01/17 at 10:30 Dextrose (D50w Syringe) 50 ml Q15M PRN IV DECREASED GLUCOSE; Start 02/01/17 at 10:30 Glucagon (Glucagen) 1 mg Q15M PRN IM DECREASED GLUCOSE; Start 02/01/17 at 10:30 Glucose (Glutose) 15 gm Q15M PRN BUCCAL DECREASED GLUCOSE; Start 02/01/17 at 10 :30 Metoclopramide HCl (Reglan) 5 mg Q6 IV Last administered on 02/05/17t 05:03; Admin Dose 5 MG; Start 02/02/17 at 17:00 DAVE VIRK MD Feb 05, 2017 12:03 DAVE VIRK MD Feb 05, 2017 12:03
--- NOTE | 2017-02-05 13:04 | PN ---
DATE: 02/05/2017 SUBJECTIVE: No events overnight. The patient remains unresponsive. No fevers. Looks comfortable. WBC 3.7, neutrophils 77.7, BUN 66, creatinine 1.50. MICROBIOLOGY: Blood culture on admission grew Proteus mirabilis and coagulase-negative staph specie s. Urine culture grew Proteus. Sputum culture grew Klebsiella and Pseudomonas, repeat blood cultur es had been negative. ANTIMICROBIALS: The patient is on: 1. Zyvox. 2. Meropenem. PHYSICAL EXAMINATION: GENERAL: This is well-developed, elderly man who is chronically ill-appearing, who is in no distres s. HEENT: Head atraumatic, normocephalic. Sclerae anicteric. Buccal mucosa dry. NECK: Supple, trachea midline. CHEST: Rise symmetrical. Breath sounds diminished to bases. HEART: S1, S2. ABDOMEN: Soft, bowel sounds present. EXTREMITIES: Without cyanosis. ASSESSMENT: 1. Resolving sepsis status post septic shock. 2. Status post polymicrobial bacteremia secondary to urinary tract infection. 3. Status post pneumonia. 4. Multiple unstageable decubitus. 5. Bilateral hydronephrosis, possible renal cell carcinoma. 6. Chronic encephalopathy. PLAN: The patient remains stable, completing antibiotics. We are going to change his antibiotics t o IV Rocephin to complete treatment for 4 more days. Dictated By: CHRISS RIVAS STRAP BUCKLER for BETHANY CASTILLO/LESLY Conf#: [id number] DID#: [id number]
[2017-02-05] MEDS ORDERED: CEFT1VIA13 IV (13:20)
--- NOTE | 2017-02-05 13:26 | DS ---
Date/Time of Note Date/Time of Note DATE: 02/05/17 TIME: 13:25 Discharge Summary Admission/Discharge Info Admit Date/Time Jan 26, 2017 at 01:35 Discharge Date/Time Final Diagnosis septic shock 2/2 polymicrobial bacteremia Patient Condition: Stable Consults cardiology, infectious disease, nephrology, pulmonology, palliative care Procedures Blood culture 6.10: proteus, CONS Urine culture 6.10: proteus sputum culture: Klebsiella and Pseudomonas 6.18 TTE Conclusions Normal left ventricular systolic function. Normal left ventricular cavity size. Mild concentric left ventricular hypertrophy. Ejection fraction is visually estimated at 65 %. Abnormal Diastolic Function. Normal right ventricular size. Normal right ventricular systolic function. The left atrium is normal in size. The right atrium is normal in size. Normal appearance of the tricuspid valve. Estimated peak PA systolic pressure 51 mmHg. There is mild tricuspid regurgitation. No significant valvular stenosis or regurgitation seen of remaining visualized valves. Small to medium sized pericardial effusion. Hx of Present Illness The patient is a 71-year-old male with multiple medical conditions who is chronically encephalopathic with chronic ventilator/trache dependent respiratory failure, dysphagia status post G-tube, chronic kidney disease, systolic function with EF of 40% per 2D echo from 08/2016, anemia, GI bleed, history of gastric ulcer, type 2 diabetes, cardiac arrhythmia and stage IV pressure ulcers, who was sent from halfway facility for abnormal labs. The patient also is not able to provide history, and as such, information is gathered from chart review and from talking to the ER physician. The abnormal labs that he was sent for mainly is for a creatinine of 4.73, BUN 333, sodium of 153 and potassium of 7. His hemoglobin was also 5.5 at the half-way. When the patient presented to the ER, blood pressure 87/60, heart rate 79, respiratory rate 18, temperature 99.5, oxygen saturation 100% on 50% FIO2 on mechanical vent. Laboratory value shows a WBC of 4.4, hemoglobin 4.7, platelet count 146. Sodium 155, potassium 7.2, chloride 117, bicarbonate 24, BUN greater than 240, creatinine of 4.39 and glucose 241. Initial lactic acid was 3. 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 The patient was admitted here about 6 weeks ago after he was sent from a half-way for abnormal labs including acute on chronic kidney disease , hyperkalemia, and hypernatremia. During that hospitalization, he was septic with urine culture growing multidrug resistant pseudomonas. Blood culture coagulase-negative status and respiratory culture also was multidrug resistant pseudomonas. During previous hospitalization, he also grew MRSA in his blood. The patient also has a history of C diff diarrhea. So patient was treated for sepsis secondary to urinary tract infection, stage IV decubitus ulcer and pneumonia. The patient was also anemic at the time with hemoglobin of 6.8 for which he underwent EGD with a finding of mild esophagitis, gastritis and duodenitis. Also, he has a previous ulcer ulceration in the proximal stomach was a complete healing. He does have 2 clips in his stomach for a bleeding ulcer. So when the patient presented here to the ER, he had several abnormal labs and he was hypotensive. His chest x-ray shows interval development of right greater than left lower lobe consolidation, basilar pneumonia with possible parapneumonic effusion. The patient was given Lasix, insulin, Protonix, albuterol, IV fluid, cefepime and Levaquin as well as bicarb while he was in the ER. Currently, he is admitted to the ICU. Hospital Course Pt initially admitted to ICU given hypotension, required pressors to maintain MAPs. After several days of abx and IVFs, pt to maintain his BPs, pressors stopped and he was transferred out of the ICU Renal consulted as admit labs with Cr 4, elevated K. Admission blood cultures polymicrobial and urine cultures and tracheal aspirate as above. Pt seen by ID, initiallly started on broad spectrum abx, transitioned to ceftriaxone monotherapy by date of discharge. Plan is for 4 additional days of ceftriaxone for a total of 14 days of antibiotics. Of note, pt with history AFib. Unclear why his amiodarone was held on admission but it was not restarted by cardiology during their evaluation as pt was in sinus with frequent PACs. Pt can f/u after discharge about restarting this medication. Re VERITO, resolved with fluids. follow ups: cardiology for pericardial effusion Home Meds Active Scripts Ceftriaxone Sodium (Ceftriaxone) 1 Gm Vial.port, 1 GM IV da for 4 Days, #4 Prov:DAVE VIRK MD 02/05/17 Collagenase* (Santyl*) 30 Gm Oint..gm., 1 APPLIC TOP DAILY, #1 Prov:IAM GÓMEZ MD 12/11/16 Insulin Glargine* (Lantus*) 100 Unit/Ml Soln, 6 UNIT SC DAILY@20 for 1 Day Prov:IAM GÓMEZ MD 12/11/16 [Acetaminophen Liquid] 160 MG/5 ML SOLN No Conflict Check, 500 MG GTB Q4H Y for PAIN AND OR ELEVATED TEMP Prov:IAM GÓMEZ MD 12/11/16 Reported Medications Calcium Carbonate-Vitamin D3 (Calcium 500 + D Tablet) 1 Each Tablet, 1 TAB GTB DAILY, TAB 12/06/16 Cholecalciferol* (Vitamin D3*) 1,000 Unit Tablet, 1000 UNIT GTB DAILY, TAB 12/06/16 Dextran/Hypromellose/Glycerin (Artificial Tears Drops) 15 Ml Drops, 2 DROP BOTH EYES BID, EA 12/06/16 Acidophilus/Pectin, [place] (ACIDOPHILUS PROBIOTIC CAPSULE) 1 Each Capsule, 1 EACH GTB BID, CAP 12/06/16 Multivitamins* (Multi-Delyn* Liq) 473 Ml Liquid, 5 ML GTB DAILY, ML 10/29/16 Magnesium Hydroxide* (Milk Of Magnesia*) 400 Mg/5 Ml Oral.susp, 30 ML GTB Q24H Y for PRN, ML 10/29/16 Sod Phosphate/Sod Biphosphate* (Fleet* Enema Pediatric) 66.6 Ml Soln, 66.6 ML VT Q2D Y for CONSTIPATION, ENEMA 10/29/16 Bisacodyl* (Bisacodyl*) 10 Mg Supp, 10 MG VT DAILY Y for PRN, SUPP 10/29/16 Docusate Sodium* (Colace*) 100 Mg Capsule, 100 MG GTB QHS, #30 CAP 10/29/16 Lansoprazole* (Lansoprazole*) 30 Mg Capsule.dr, 30 MG GTB BID, CAP 09/25/16 Ferrous Sulfate* (Ferrous Sulfate*) 220 Mg/5 Ml Solution, 220 MG GTB DAILY, ML 09/25/16 Cran/Vitc/Mannose/Inulin/Brom (Uti-Stat Liquid) 3,875 Mg/30 Ml Liquid, 30 ML GTB BID 09/25/16 Zinc Sulfate* (Zinc Sulfate*) 220 Mg Tablet, 220 MG GTB DAILY, TAB 08/23/16 Ascorbic Acid* (Vitamin C* Liq) 500 Mg/5 Ml Syrup, 500 MG GTB DAILY, ML 08/23/16 Tramadol Hcl* (Ultram*) 50 Mg Tablet, 50 MG GTB BID, TAB 08/23/16 Chlorhexidine Gluconate (Paroex) 473 Ml Mouthwash, 473 ML MM Q12, BOTTLE 08/23/16 Dextran/Hypromellose/Glycerin (Artificial Tears Drops) 15 Ml Drops, 2 DROP BOTH EYES BID, EA 08/23/16 Amiodarone Hcl* (Amiodarone Hcl*) 200 Mg Tablet, 200 MG GTB DAILY, #30 TAB HOLD IF AP BELOW 60 08/23/16 Albuterol Sulfate* (Albuterol Sulfate* Neb) 0.083%-3 Ml Neb, 2.5 MG NEB Q3H Y for WHEEZING AND SOB, #30 VIAL Q6H FOR SOB/WHEEZING WITH ATROVENT 08/23/16 Follow-up Plan follow ups: cardiology for pericardial effusion within 2 weeks Primary Care Provider Jung Jacobo Time spent on discharge: > 30 minutes Pending Labs Laboratory Tests Test 02/04/17 17:13 02/05/17 00:21 02/05/17 05:06 02/05/17 06:20 Bedside Glucose 124mg/dL (70-220) 159mg/dL (70-220) 136mg/dL (70-220) White Blood Count 3.710^3/ul (4.8-10.8) Red Blood Count 2.5910^6/ul (4.70-6.10) Hemoglobin 7.8g/dl (14.0-18.0) Hematocrit 24.8% (42.0-52.0) Mean Corpuscular Volume 95.8fl (82.0-101.0) Mean Corpuscular Hemoglobin 30.1pg (29.0-33.0) Mean Corpuscular Hemoglobin Concent 31.5g/dl (32.0-37.0) Red Cell Distribution Width 17.9% (11.5-14.5) Platelet Count 6410^3/UL (140-415) Mean Platelet Volume 11.8fl (7.4-10.4) Neutrophils % 77.7% (39.0-77.0) Lymphocytes % 8.4% (15.0-51.0) Monocytes % 8.2% (0.0-11.0) Eosinophils % 5.2% (0.0-7.0) Basophils % 0.0% (0.0-2.0) Nucleated Red Blood Cells % 0.0/100WBC (0.0-0.0) Neutrophils # 2.910^3/ul (1.6-7.5) Lymphocytes # 0.310^3/ul (0.8-2.9) Monocytes # 0.310^3/ul (0.3-0.9) Eosinophils # 0.210^3/ul (0.0-0.5) Basophils # 0.010^3/ul (0.0-0.1) Nucleated Red Blood Cells # 0.010^3/ul (0.0-0.0) Differential Comment AUTO w/SCAN Platelet Estimate PLT APPEAR DECREASED Sodium Level 138mmol/L (135-144) Potassium Level 4.0mmol/L (3.5-5.1) Chloride Level 114mmol/L (97-110) Carbon Dioxide Level 18mmol/L (21-31) Anion Gap 10 (8-16) Blood Urea Nitrogen 66mg/dl (7-20) Creatinine 1.50mg/dl (0.61-1.24) Glucose Level 125mg/dl (70-220) Calcium Level 7.8mg/dl (8.4-10.2) Phosphorus Level 3.4mg/dl (2.5-4.9) Magnesium Level 2.0mg/dl (1.7-2.5) Test 02/05/17 12:02 Bedside Glucose 161mg/dL (70-220) DAVE VIRK MD Feb 05, 2017 13:26
[2017-02-05] MEDS ORDERED: CEFTRIAXONE 1 GM/50 ML (PMX) 50 ML IVPB SCH (13:30)
--- NOTE | 2017-02-05 13:54 | PDOCDIS ---
Discharge Instructions CONDITION Patient Condition: Stable FOLLOW UP/APPOINTMENTS Appointments cardiology/Dr De La Vega within 2 weeks to f/u pericardial effusion DAVE VIRK MD Feb 05, 2017 13:54
--- NOTE | 2017-02-05 14:03 | CONS ---
Date/Time of Note Date/Time of Note DATE: 02/05/17 TIME: 14:01 Assessment/Plan Assessment/Plan Additional Assessment/Plan Ventilator setting; AC of 16, tidal volume 500, PEEP of 5, 30% FiO2. Assessment recommendations; 1. Patient admitted with severe anemia due to hematuria possibly with underlying renal malignancy, however no further bleeding noted with stable hematocrit now. 2. Chronic respiratory failure, with multi-infarct dementia, patient remains ventilator dependent. 3. Chronic renal insufficiency. 4. Pancytopenia. 5. Right lower lobe pneumonia. Continue current supportive care. Prognosis is very poor. Consultation Date/Type/Reason Admit Date/Time Jan 26, 2017 at 01:35 Type of Consultation: Pulmonary 24 HR Interval Summary Free Text/Dictation Patient condition remains unchanged. Remains unresponsive. Has remained hemodynamically stable. No untoward events reported. [place]; elderly male, on ventilator via tracheostomy currently in no distress , unresponsive. Exam/Review of Systems Vital Signs Vitals Vital Signs Date Time Temp Pulse Resp B/P Pulse Ox O2 Delivery O2 Flow Rate FiO2 02/05/17 12:36 89 02/05/17 11:58 98.5 18 105/65 98 02/05/17 05:36 30 Intake and Output 02/04/17 02/04/17 02/05/17 15:00 23:00 07:00 Intake Total 500 ml 1800 ml 1500 ml Output Total 1800 ml 1200 ml Balance 500 ml 0 ml 300 ml Exam HEENT exam is; supple neck, no JVD. No lymphadenopathy. Midline trachea. No thyromegaly. Tracheostomy in place. Patient is edentulous. Chest examination; diminished breath sounds right lower lobe. Rest of the lung martinez are fairly clear. S1-S2 audible, no murmurs. Regular rhythm. Abdomen examination; soft, G-tube in place. Bowel sounds audible. No organomegaly. Extremity examination; no peripheral edema. [employer] examination; patient remains unresponsive. Results Result Diagram: 02/05/17 0620 02/05/17 0620 Results 24 hrs Laboratory Tests Test 02/04/17 17:13 02/05/17 00:21 02/05/17 05:06 02/05/17 06:20 Bedside Glucose 124 159 136 White Blood Count 3.7 #L Red Blood Count 2.59 L Hemoglobin 7.8 L Hematocrit 24.8 L Mean Corpuscular Volume 95.8 Mean Corpuscular Hemoglobin 30.1 Mean Corpuscular Hemoglobin Concent 31.5 L Red Cell Distribution Width 17.9 H Platelet Count 64 #L Mean Platelet Volume 11.8 H Neutrophils % 77.7 H Lymphocytes % 8.4 L Monocytes % 8.2 Eosinophils % 5.2 Basophils % 0.0 Nucleated Red Blood Cells % 0.0 Neutrophils # 2.9 Lymphocytes # 0.3 L Monocytes # 0.3 Eosinophils # 0.2 Basophils # 0.0 Nucleated Red Blood Cells # 0.0 Differential Comment AUTO w/SCAN Platelet Estimate PLT APPEAR DECREASED Sodium Level 138 Potassium Level 4.0 Chloride Level 114 H Carbon Dioxide Level 18 L Anion Gap 10 Blood Urea Nitrogen 66 H Creatinine 1.50 H Glucose Level 125 Calcium Level 7.8 L Phosphorus Level 3.4 Magnesium Level 2.0 Test 02/05/17 12:02 Bedside Glucose 161 Medications Medications Current Medications Ondansetron HCl (Zofran Inj) 4 mg Q6H PRN IV NAUSEA AND/OR VOMITING; Start 07/04 at 00:00 Acetaminophen (Tylenol Liquid) 650 mg Q6H PRN PO PAIN LEVEL 1-3 OR FEVER; Start 01/26/17 at 00:00 Morphine Sulfate (morphine) 2 mg Q4H PRN IV PAIN LEVEL 7-10 Last administered on 01/29/17 03:41; Admin Dose 2 MG; Start 01/26/17 at 00:00 Lorazepam (Ativan) 1 mg Q2H PRN IV ANXIETY; Start 01/26/17 at 00:00 Collagenase (Santyl) 1 applic DAILY TOP Last administered on 02/05/17 09:03; Admin Dose 1 APPLIC; Start 01/26/17 at 09:00 Hydrogen Peroxide (Hydrogen Peroxide) 1 applic QHS TOP Last administered on 21:41; Admin Dose 1 APPLIC; Start 01/26/17 at 21:00 Hydrogen Peroxide (Hydrogen Peroxide) 1 applic DAILY TOP Last administered on 09:04; Admin Dose 1 APPLIC; Start 01/27/17 at 09:00 Miscellaneous Information (Pending Santyl Order For Wound Care) This patient carrion... PRN PRN XX WOUND CARE; Start 01/27/17 at 11:00 Sodium Hypochlorite (Dakin'S (1/4 Strength)) 1 applic DAILY IRR Last administered on 02/05/17 09:47; Admin Dose 1 APPLIC; Start 01/28/17 at 21:00 Insulin Aspart (Novolog Insulin Pen) (Adult SC Insulin - Mild Algorithm)... Q6 SC Last administered on 02/05/17 12:05; Admin Dose 1 UNIT; Start 02/01/17 at 11:30 Miscellaneous Information 1 ea NOTE XX ; Start 02/01/17 at 10:30 Glucose (Glutose) 15 gm Q15M PRN PO DECREASED GLUCOSE; Start 02/01/17 at 10:30 Glucose (Glutose) 22.5 gm Q15M PRN PO DECREASED GLUCOSE; Start 02/01/17 at 10: 30 Dextrose (D50w Syringe) 25 ml Q15M PRN IV DECREASED GLUCOSE; Start 02/01/17 at 10:30 Dextrose (D50w Syringe) 50 ml Q15M PRN IV DECREASED GLUCOSE; Start 02/01/17 at 10:30 Glucagon (Glucagen) 1 mg Q15M PRN IM DECREASED GLUCOSE; Start 02/01/17 at 10:30 Glucose (Glutose) 15 gm Q15M PRN BUCCAL DECREASED GLUCOSE; Start 02/01/17 at 10 :30 Metoclopramide HCl 5 mg 5 mg Q6 IV Last administered on 02/05/17 12:03; Admin Dose 5 MG; Start 02/02/17 at 17:00 Ceftriaxone Sodium (Rocephin) 50 ml @ 100 mls/hr Q24H IVPB ; Start 02/05/17 at 13:30 AARON HUFF 21, 2017 14:03
[2017-02-05] MEDS: ALTEPLASE (CATHFLO) 2 MG INJ CATHETER PRN ×2 (15:41→15:43)
[2017-02-06] MEDS: Insulin NOVOLOG SS MILD Algorithm (NPO/TPN/ENTERAL FEEDS) SC SCH
[2017-02-06] MEDS: METOCLOPRAMIDE 10 MG INJ IV SCH (00:18)
[2017-02-06 00:31] VITALS: BP 104/75; RESP 20
[2017-02-06 00:51] VITALS: PULSE 87
[2017-02-06 02:12] VITALS: RESP 28
== END 2017-02-06 03:20 | DRG 870 ==
LOC: E/R 21:38 → ICU 01-26 01:35 → TEL 02-01 20:49
PROVIDERS: ADMIT Internal Medicine; ATTEND Internal Medicine
PROC: 5A1955Z Respiratory Ventilation, Greater than 96 Consecutive Hours (ICD-10-PCS; 2017-01-25)
PROC: 30233N1 Transfusion of Nonautologous Red Blood Cells into Peripheral Vein, Percutaneous Approach (ICD-10-PCS; 2017-01-25)
PROC: 02HV33Z Insertion of Infusion Device into Superior Vena Cava, Percutaneous Approach (ICD-10-PCS; principal; 2017-01-28)
DX: A41.89 Other specified sepsis (principal); N17.0 Acute kidney failure with tubular necrosis; J18.9 Pneumonia, unspecified organism; R65.21 Severe sepsis with septic shock; G92 Toxic encephalopathy; L89.154 Pressure ulcer of sacral region, stage 4; G93.1 Anoxic brain damage, not elsewhere classified; L89.894 Pressure ulcer of other site, stage 4; Z99.11 Dependence on respirator [ventilator] status; L89.893 Pressure ulcer of other site, stage 3; L89.623 Pressure ulcer of left heel, stage 3; E87.0 Hyperosmolality and hypernatremia; N18.4 Chronic kidney disease, stage 4 (severe); I42.9 Cardiomyopathy, unspecified; J96.10 Chronic respiratory failure, unspecified whether with hypoxia or hypercapnia; N39.0 Urinary tract infection, site not specified; N13.30 Unspecified hydronephrosis; D61.818 Other pancytopenia; E44.0 Moderate protein-calorie malnutrition; Z93.1 Gastrostomy status; E11.22 Type 2 diabetes mellitus with diabetic chronic kidney disease; E87.5 Hyperkalemia; Z93.0 Tracheostomy status; R31.0 Gross hematuria; D63.1 Anemia in chronic kidney disease; E83.9 Disorder of mineral metabolism, unspecified; L89.610 Pressure ulcer of right heel, unstageable; L89.892 Pressure ulcer of other site, stage 2; L89.890 Pressure ulcer of other site, unstageable; K20.9 Esophagitis, unspecified; K29.70 Gastritis, unspecified, without bleeding; K43.9 Ventral hernia without obstruction or gangrene; F01.50 Vascular dementia, unspecified severity, without behavioral disturbance, psychotic disturbance, mood disturbance, and anxiety; I48.0 Paroxysmal atrial fibrillation; B96.4 Proteus (mirabilis) (morganii) as the cause of diseases classified elsewhere; Z68.24 Body mass index [BMI] 24.0-24.9, adult
CPT/HCPCS: 36415; 36430; 36569; 36600; 70450; 71010; 74000; 74176; 76775; 76856; 76937; 80048; 80053; 81001; 81003; 82043; 82140; 82270; 82803; 82962; 83036; 83605; 83735; 83930; 83935; 84100; 84155; 84300; 84484; 85014; 85018; 85025; 85610; 85730; 86850; 86900; 86901; 86920; 87040; 87070; 87081; 87086; 89220; 93005; 93306; 94002; 94003; 94640; 94664; 96374; 96375; 96376; J1940; C9113; J0692; J0696; J0744; J1815; J2185; J2270; J2765; J2997; J3475; J3480; J7030; J7040; J7042; J7060; J7070; J7120; P9016; Q4081

== ENCOUNTER 2017-03-24 18:14 | Inpatient (IN) | payer OTHER ==
[~2017-03-24] VITALS: Ht 170.2 cm; Wt 73.0 kg
[2017-03-24 18:14] VITALS: Ht 170.2 cm; Wt 73.0 kg
[~2017-03-24 18:14] MED LIST changes: -AMIO200T2 GTB; +CEFT1VIA13 IV; +EPINEPHrine 0.1 MG/ML SYG ONE; -LANT3I SC; +NA BICARBONATE 8.4% 50 ML SYG ONE; +NORepinephrine 8MG/250 ML BAG ONE
[2017-03-24] MEDS ORDERED: LIDOCAINE 1% (MDV) 20 ML INJ ONE (18:46)
[2017-03-24] MEDS ORDERED: IODIXANOL LOCM 100 ML BTL ONE (18:46)
[2017-03-24] MEDS ORDERED: HEPARIN 1000 UNITS/NS (A-LINE) 1,000 ML ONE (18:46)
[2017-03-24] MEDS ORDERED: VERAPAMIL 5 MG INJ ONE (18:47)
[2017-03-24] MEDS ORDERED: NITROGLYCERIN (IC) 100 MCG/ML INJ ONE (18:47)
[2017-03-24 18:53] LABS: ABNORMAL IP MESSAGE 1; HEMATOCRIT 28.2 % (42.0-52.0); HEMOGLOBIN 7.7 g/dl (14.0-18.0); MEAN CORPUSCULAR HEMOGLOBIN 30.3 pg (29.0-33.0); MEAN CORPUSCULAR HGB CONC 27.3 g/dl (32.0-37.0); MEAN PLATELET VOLUME 11.5 fl (7.4-10.4); NUCLEATED RED BLOOD CELLS% 0.9 /100WBC (0.0-0.0); PLATELET COUNT 420 10^3/UL (140-415); POSITIVE DIFF @See below; RED BLOOD COUNT 2.54 10^6/ul (4.70-6.10); RED CELL DISTRIBUTION WIDTH 16.9 % (11.5-14.5); WHITE BLOOD COUNT 9.9 10^3/ul (4.8-10.8)
--- NOTE | 2017-03-24 19:04 | RADRPT ---
PROCEDURE: Chest x-ray CLINICAL INDICATION: Cardiac arrest TECHNIQUE: Chest single view COMPARISON: 10/29/2016 FINDINGS: Tracheostomy tube remains in good position. Heart is normal in size. Bony vessels are normal in ca liber. There is new bilateral perihilar and lower lobe infiltrates which may represent atelectasis and/or pneumonia. No pneumothorax is seen. Costophrenic angles are sharp. Bony thorax is unremark able. IMPRESSION: 1. Tracheostomy tube remains in good position. 2. New perihilar and lower lobe atelectasis/pneumonia. 3. No pneumothorax. 4. Old right clavicle fracture RPTAT: HH .Devon Sears MD, Date Time Electronically viewed and signed by .Devon Sears MD, on 03/24/2017 19:04 .W/
[2017-03-24] MEDS ORDERED: DOPamine-D5W 1.6 MG/ML 250 ML IV STA (19:06)
[2017-03-24] MEDS ORDERED: MULTI GTB (19:09)
[2017-03-24] MEDS ORDERED: SEVE800T7 GTB (19:10)
[2017-03-24 19:12] LABS: ALBUMIN 3.7 g/dl (3.3-4.9); ALBUMIN/GLOBULIN RATIO 0.9; CREATININE 2.03 mg/dl (0.61-1.24); TOTAL PROTEIN 7.8 g/dl (6.1-8.1)
[2017-03-24] MEDS ORDERED: ACET325T33 GTB (19:12)
[2017-03-24] MEDS ORDERED: TYL500 GTB (19:13)
[2017-03-24] MEDS ORDERED: ACET160S2 GTB (19:15)
[2017-03-24 19:16] LABS: POTASSIUM 5.5 mmol/L (3.5-5.1)
[2017-03-24 19:29] LABS: CALCIUM 14.4 mg/dl (8.4-10.2)
[2017-03-24] MEDS ORDERED: NORepinephrine 8MG/250 ML (PMX 250 ML IV STA (19:39)
[2017-03-24] MEDS ORDERED: VANCOMYCIN 1.5 GM in SOD CHLORIDE 0.9% 250 ML IVPB ONE (20:00)
[2017-03-24] MEDS ORDERED: CEFEPIME 1GM/50 ML (PMX) 50 ML IVPB ONE (20:00)
[2017-03-24 20:10] LABS: ANISOCYTOSIS 1+ (0-0); EOSINOPHILS % (M) 6 % (0-7); ERYTHROBLAST% (NRBC) (M) 2 % (0-0); HYPOCHROMASIA 1+ (0-0); METAMYELOCYTES %M 3 % (0-0); MONOCYTES % (M) 1 % (0-11); PLATELET ESTIMATE NORMAL; PROMYELOCYTES #M 0 # (0-0); PROMYELOCYTES % (M) 3 % (0-0)
[2017-03-24 20:14] LABS: ADD UMIC YES; UR ASCORBIC ACID 20 mg/dL (NEGATIVE); UR BACTERIA MODERATE /HPF (NONE SEEN); UR BILIRUBIN (Dip) NEGATIVE (NEGATIVE); UR BLOOD (Dip) 1+ mg/dL (NEGATIVE); UR CLARITY CLOUDY (CLEAR); UR COLOR YELLOW (YELLOW); UR GLUCOSE (Dip) NEGATIVE (NEGATIVE); UR KETONES (Dip) NEGATIVE (NEGATIVE); UR LEUKOCYTE ESTERASE (Dip) 3+ Leu/ul (NEGATIVE); UR MUCUS FEW /HPF (NONE SEEN); UR NITRITE (Dip) NEGATIVE (NEGATIVE); UR RBC 52 /HPF (0-5); UR SPECIFIC GRAVITY (Dip) 1.011 (1.003-1.030); UR TOTAL PROTEIN (Dip) 1+ mg/dl (NEGATIVE); UR UROBILINOGEN (Dip) NEGATIVE (NEGATIVE)
[2017-03-24 20:16] LABS: AADO2 Arterial 425.3 mmHg (7.0-24.0); Arterial Base Excess -15.1 mmol/L (-3.0-3); Arterial COHb 0.1 % (0.0-3.0); Arterial Fraction of Oxyhgb 96.8 % (93.0-99.0); Arterial HCO3 16.9 mmol/L (22.0-26.0); Arterial Total Hemglobin 9.8 g/dl (12.0-18.0); MODE VENT - AC
[2017-03-24] MEDS ORDERED: NA BICARBONATE 8.4% 50 ML SYG IV STA (21:18)
--- NOTE | 2017-03-24 21:18 | ERA ---
ER Documentation Chief Complaint Date/Time DATE: 03/24/17 TIME: 21:16 Chief Complaint BIBA FOR ROSC FROM [facility] This is a 71-year-old male with a past medical history of cardiac disease, congestive heart failure, chronic respiratory failure status post trach and PEG , ventilator dependent, large chronic sacral decubitus ulcer, encephalopathy, chronic kidney disease who is presenting status post cardiac arrest. The patient was found this afternoon to be unresponsive. An ambulance was called at that time. Upon ambulance arrival, the patient was found to be in PEA. CPR was initiated at that time. He received 2 rounds of epinephrine and ROSC was achieved. The patient was congested but easy to bag and root to the hospital. The patient was hypotensive and bradycardic throughout transport. The history is limited secondary to patient's intubated and altered status status post cardiac arrest. ROS Review of systems is limited secondary to patient's intubated and altered status status post cardiac arrest. Medications Home Meds Reported Medications Acetaminophen* (Tylenol*) 160 Mg/5ML-Ped Cup, 350 MG GTB NEEDED Y for TRACH TUBE CHANGE, ML 03/24/17 Acetaminophen* (Tylenol*) 500 Mg Tab, 1000 MG GTB Q4H Y for PAIN 4-6/10, TAB 03/24/17 Acetaminophen* (Tylenol*) 325 Mg Tablet, 650 MG GTB Q4H Y for MILD PAIN LEVEL 1- 3, TAB AND FOR FEVER 101 AND ABOVE 03/24/17 Sevelamer Carbonate* (Renvela*) 800 Mg Tablet, 0.8 GM GTB WITH MEALS, TAB 03/24/17 Multivitamins* (Theragran*) 1 Tab Tab, 1 TAB GTB DAILY, TAB 03/24/17 Calcium Carbonate-Vitamin D3 (Calcium 500 + D Tablet) 1 Each Tablet, 1 TAB GTB DAILY, TAB 12/06/16 Cholecalciferol* (Vitamin D3*) 1,000 Unit Tablet, 1000 UNIT GTB DAILY, TAB 12/06/16 Acidophilus/Pectin, [place] (ACIDOPHILUS PROBIOTIC CAPSULE) 1 Each Capsule, 1 EACH GTB BID, CAP 12/06/16 Magnesium Hydroxide* (Milk Of Magnesia*) 400 Mg/5 Ml Oral.susp, 30 ML GTB Q24H Y for PRN, ML 10/29/16 Sod Phosphate/Sod Biphosphate* (Fleet* Enema Pediatric) 66.6 Ml Soln, 66.6 ML PA Q2D Y for CONSTIPATION, ENEMA 10/29/16 Bisacodyl* (Bisacodyl*) 10 Mg Supp, 10 MG PA DAILY Y for PRN, SUPP 10/29/16 Docusate Sodium* (Colace*) 100 Mg Capsule, 100 MG GTB QHS, #30 CAP 10/29/16 Lansoprazole* (Lansoprazole*) 30 Mg Capsule.dr, 30 MG GTB BID, CAP 09/25/16 Ferrous Sulfate* (Ferrous Sulfate*) 220 Mg/5 Ml Solution, 220 MG GTB DAILY, ML 09/25/16 Cran/Vitc/Mannose/Inulin/Brom (Uti-Stat Liquid) 3,875 Mg/30 Ml Liquid, 30 ML GTB BID 09/25/16 Ascorbic Acid* (Vitamin C* Liq) 500 Mg/5 Ml Syrup, 500 MG GTB DAILY, ML 08/23/16 Tramadol Hcl* (Ultram*) 50 Mg Tablet, 50 MG GTB BID, TAB 08/23/16 Chlorhexidine Gluconate (Paroex) 473 Ml Mouthwash, 473 ML MM Q12, BOTTLE 08/23/16 Dextran/Hypromellose/Glycerin (Artificial Tears Drops) 15 Ml Drops, 2 DROP BOTH EYES BID, EA 08/23/16 Albuterol Sulfate* (Albuterol Sulfate* Neb) 0.083%-3 Ml Neb, 2.5 MG NEB Q3H Y for WHEEZING AND SOB, #30 VIAL Q6H FOR SOB/WHEEZING WITH ATROVENT 08/23/16 Discontinued Reported Medications Dextran/Hypromellose/Glycerin (Artificial Tears Drops) 15 Ml Drops, 2 DROP BOTH EYES BID, EA 12/06/16 Multivitamins* (Multi-Delyn* Liq) 473 Ml Liquid, 5 ML GTB DAILY, ML 10/29/16 Zinc Sulfate* (Zinc Sulfate*) 220 Mg Tablet, 220 MG GTB DAILY, TAB 08/23/16 Discontinued Scripts Ceftriaxone Sodium (Ceftriaxone) 1 Gm Vial.port, 1 GM IV da for 4 Days, #4 Prov:DAVE VIRK MD 02/05/17 Collagenase* (Santyl*) 30 Gm Oint..gm., 1 APPLIC TOP DAILY, #1 Prov:IAM GÓMEZ MD 12/11/16 [Acetaminophen Liquid] 160 MG/5 ML SOLN No Conflict Check, 500 MG GTB Q4H Y for PAIN AND OR ELEVATED TEMP Prov:IAM GÓMEZ MD 12/11/16 Allergies Allergies: Coded Allergies: No Known Allergy (Unverified , 03/24/17) PMhx/Soc History of Surgery: Yes (trach, gtube) Hx Neurological Disorder: No Hx Respiratory Disorders: Yes (respiratory failure, trach to vent ) Hx Cardiac Disorders: Yes (HTN, afib) Hx Psychiatric Problems: No Hx Miscellaneous Medical Probl: Yes (SUBDURAL HEMORRHAGE) Hx Alcohol Use: No Hx Substance Use: No Hx Tobacco Use: No Smoking Status: Unknown if ever smoked FmHx Unable to assess secondary to patient's status Physical Exam Vitals Vital Signs Date Time Temp Pulse Resp B/P Pulse Ox O2 Delivery O2 Flow Rate FiO2 03/24/17 21:00 92 71/57 03/24/17 20:50 90 78/56 03/24/17 20:40 90 77/56 03/24/17 20:30 94.4 89 16 78/59 100 Mechanical Ventilator 03/24/17 20:20 89 80/56 03/24/17 20:10 87 80/56 03/24/17 20:05 86 77/57 03/24/17 20:00 84 74/57 03/24/17 19:50 81 73/53 03/24/17 19:40 83 67/52 03/24/17 19:30 94.4 63 16 68/47 100 Mechanical Ventilator 03/24/17 19:20 56 51/43 03/24/17 19:15 54 62/52 03/24/17 19:05 56 72/50 03/24/17 18:57 55 80/55 03/24/17 18:50 76 45/34 03/24/17 18:40 51 16 95 100 03/24/17 18:30 94.3 61 16 53/30 94 Mechanical Ventilator 03/24/17 18:20 95.5 85 10 103/65 85 Mechanical Ventilator 03/24/17 18:14 95.5 63 10 61/32 65 Physical Exam Const: Significant distress, hypotensive, bradycardic, unresponsive Head: Atraumatic Eyes: Pupils are fixed and dilated ENT: Normal External Ears, dry mucous membranes, patient is trached and pegged with congestion and mucus surrounding the trach site Resp: Coarse breath sounds diffusely Cardio: Severe bradycardia Abd: Soft, non distended, PEG in place Skin: No petechiae or rashes Back: Large grade 4 sacral decubitus ulcer Ext: No cyanosis, or edema Neur: ANO 4, unresponsive, no movement to painful stimuli Result Diagram: 03/24/17 1835 03/24/17 1835 Results 24 hrs Laboratory Tests Test 03/24/17 18:35 03/24/17 19:47 03/24/17 19:54 White Blood Count 9.910^3/ul Red Blood Count 2.5410^6/ul Hemoglobin 7.7g/dl Hematocrit 28.2% Mean Corpuscular Volume 111.0fl Mean Corpuscular Hemoglobin 30.3pg Mean Corpuscular Hemoglobin Concent 27.3g/dl Red Cell Distribution Width 16.9% Platelet Count 68067^3/UL Mean Platelet Volume 11.5fl Neutrophils % % Segmented Neutrophils % (Manual) 44% Band Neutrophils % (Manual) 2% Lymphocytes % % Lymphocytes % (Manual) 37% Monocytes % % Monocytes % (Manual) 1% Eosinophils % % Eosinophils % (Manual) 6% Basophils % % Metamyelocytes % (manual) 3% Promyelocytes % (Manual) 3% Nucleated Red Blood Cells % 2% Neutrophils # 10^3/ul Neutrophils # (Manual) 4.410^3/ul Band Neutrophils # 0.110^3/ul Absolute Lymphocytes (Manual) 3.610^3/ul Lymphocytes # 10^3/ul Monocytes # 10^3/ul Absolute Monocytes (Manual) 0.010^3/ul Eosinophils # 10^3/ul Basophils # 10^3/ul Metamyelocytes # 0.210^3/ul Promyelocytes # 0# Nucleated Red Blood Cells # 10^3/ul Smudge Cells % 12% Platelet Estimate NORMAL Hypochromasia 1+ Anisocytosis 1+ Macrocytosis 1+ Sodium Level 140mmol/L Potassium Level 5.5mmol/L Chloride Level 94mmol/L Carbon Dioxide Level 14mmol/L Anion Gap 38 Blood Urea Nitrogen 120mg/dl Creatinine 2.03mg/dl Glucose Level 292mg/dl Lactic Acid Level 18.9mmol/L Calcium Level 14.4mg/dl Total Bilirubin 0.0mg/dl Direct Bilirubin 0.00mg/dl Indirect Bilirubin 0.0mg/dl Aspartate Amino Transf (AST/SGOT) 219IU/L Alanine Aminotransferase (ALT/SGPT) 183IU/L Alkaline Phosphatase 162IU/L Troponin I 0.025ng/ml Total Protein 7.8g/dl Albumin 3.7g/dl Globulin 4.10g/dl Albumin/Globulin Ratio 0.90 Blood Gas Specimen Source Blood arterial Arterial Blood Date Drawn 03/24/2017 8:05:11 PM Arterial Blood pH (Temp corrected) 6.954 Arterial Blood pCO2 (Temp correct) 78.1mmhg Arterial Blood pO2 (Temp corrected) 209.6mmHG Arterial Blood HCO3 16.9mmol/L Arterial Blood Base Excess -15.1mmol/L Arterial Blood Oxygen Saturation 97.9mmHG Pedro Test N/A Arterial Blood Gas Puncture Site Right Brachial Arterial Blood Carboxyhemoglobin 0.1% Arterial Blood Methemoglobin 1.0% Blood Gas A-a O2 Differential 425.3mmHg Oxyhemoglobin Percent 96.8% Total Hemoglobin 9.8g/dl Blood Gas Temperature 37.0C Blood Gas Respiration Rate 16.0 Blood Gas Actual Respiration Rate 16 Blood Gas Modality VENT - AC FiO2 100.0% Blood Gas Tidal Volume 500.0mL Blood Gas Low PEEP Setting 5.0cmH2O Blood Gas Inspiratory Pressure 30.0 Blood Gas Critical Value Read Back Kristyn SANCHEZ MD Blood Gas Notified Whom MG Blood Gas Notified Time 03/24/2017 8:16:53 PM Urine Color YELLOW Urine Clarity CLOUDY Urine pH 8.0 Urine Specific [place] 1.011 Urine Ketones NEGATIVEmg/dL Urine Nitrite NEGATIVEmg/dL Urine Bilirubin NEGATIVEmg/dL Urine Urobilinogen NEGATIVEmg/dL Urine Leukocyte Esterase 3+Audie/ul Urine Microscopic RBC 52/HPF Urine Microscopic WBC > 182/HPF Urine Bacteria MODERATE/HPF Urine Mucus FEW/HPF Urine Hemoglobin 1+mg/dL Urine Glucose NEGATIVEmg/dL Urine Total Protein 1+mg/dl Current Medications Medications (Trade) Dose Ordered Sig/Cici Route PRN Reason Start Time Stop Time Status Last Admin Dose Admin Heparin Sodium/ Sodium Chloride (Heparin 1000 Units/NS (A-Line)) 1,000 ml @ [facility]-MED ONCE .ROUTE 03/24/17 18:46 03/24/17 18:47 DC Iodixanol (Visipaque Locm) 100 ml STK-MED ONCE .ROUTE 03/24/17 18:46 03/24/17 18:47 DC Lidocaine (Xylocaine 1% (Mdv) 20 ml) 20 ml STK-MED ONCE .ROUTE 03/24/17 18:46 03/24/17 18:47 DC Verapamil HCl (Verapamil) 5 mg STK-MED ONCE .ROUTE 03/24/17 18:47 03/24/17 18:48 DC Nitroglycerin 1000 mcg 1,000 mcg STK-MED ONCE .ROUTE 03/24/17 18:47 03/24/17 18:48 DC Dopamine HCl/ Dextrose 250 ml @ 0 mls/hr ONCE STAT IV 03/24/17 19:06 03/24/17 19:09 DC 03/24/17 19:32 Norepinephrine 250 ml @ 3.75 mls/hr ONCE STAT IV 03/24/17 19:39 03/27/17 14:18 03/24/17 19:42 Vancomycin HCl 1.5 gm/Sodium Chloride 250 ml @ 83.333 mls/ hr ONCE ONCE IVPB 03/24/17 20:00 03/24/17 22:59 03/24/17 21:24 Cefepime HCl 50 ml @ 100 mls/hr ONCE ONCE IVPB 03/24/17 20:00 03/24/17 20:29 DC 03/24/17 20:13 Phenylephrine HCl 40 mg/Dextrose 500 ml @ 75 mls/hr TITRATE IV 03/24/17 21:30 03/24/17 21:24 Sodium Chloride (NS) 2,540 ml @ 1,270 mls/hr BOLUS X1 ONCE IV 03/24/17 21:30 03/24/17 23:29 03/24/17 21:23 Sodium Bicarbonate 50 ml 50 ml NOW STAT IV 03/24/17 21:18 03/24/17 21:22 DC 03/24/17 21:43 Sodium Bicarbonate/ Dextrose (Na Bicarb/D5W) 1,150 ml @ 75 mls/hr [id number] IV 03/24/17 21:30 Procedures/MDM The patient presents status post cardiac arrest. He is a chronically ill patient with multiple comorbidities including chronic vent dependent tracheostomy and PEG tube. Upon arrival to the emergency department, the patient arrested again. ACLS protocol was initiated immediately. CPR was effective and maintained throughout the code. The patient was given 1 dose of epinephrine and bicarbonate during the code. After approximately 4 minutes, ROSC was achieved. The patient was found to be severely hypoxic with oxygenation in the 50s. Respiratory therapy was called immediately upon patient arrival and help to suction the patient and bagged the patient to an oxygenation between 90 and 100. At that point he was placed on the ventilator An EKG was obtained at this time that was concerning for an acute coronary syndrome with ST depressions in leads I, aVL and V4 through V6. There was also an ST depression in lead II and ST elevations in leads aVR and V1. A STEMI alert was called and the case was discussed with the database reporting consultant who felt that the patient's history did not make him a candidate for catheterization at this time. The patient's EKG showed a ventricular rate of 79 bpm at this time with an elevated PA interval and wide QRS. After some time, the patient started to become bradycardic into the 40s and 50s. He also became hypotensive with systolic blood pressures in the 60s. The patient did require 1 more amp of epinephrine that did briefly help his pressure. However, he was ultimately started on a Levophed and dopamine drip with a goal of maintaining pressures above 65. The patient's blood work was obtained and reviewed, and had multiple derangements. He had an elevated lactic acid greater than 18. An ABG was performed that showed a pH of 6.9 with a CO2 in the low teens. A bicarb drip was initiated as well. The patient also had an elevated calcium. He is getting IV fluids. The patient did have an elevated troponin to 0.025 The patient required central line placement. Procedure note as below. Central Line Placement by me: Patient consented, sterilely draped, full prep, gown, glove, mask, time out performed. Anesthesia: None Location: Right femoral vein Device: Multiple lumen Technique: Seldinger technique. Secured with suture. Results: Venous return from all ports with easy saline flush. No complications. Guide wire retrieved and disposed of. [ED Ultrasound: Central line placed by me using concurrent ultrasound guidance. Real time imaging confirmed vascular anatomy. Patient's chest x-ray demonstrated findings concerning for pneumonia. I do suspect the possibility of aspiration pneumonia. The patient requires ICU level care. I unfortunately suspect that his prognosis is poor. There are concerns of sepsis, and broad-spectrum antibiotics were initiated. The patient has a large sacral decubitus ulcer. The patient may have aspirated leading to respiratory arrest. The patient's EKG is concerning for an acute coronary syndrome as well, which should also be further evaluated. The patient was signed out to Dr. Shabbir Guthrie at 10 PM. At time of signout, the patient's map was 72 and his heart rate was 93. Departure Diagnosis: Primary Impression: Cardiac arrest Additional Impressions: Sepsis Qualified Code: A41.9 - Sepsis, due to unspecified organism Hypoxia Sacral decubitus ulcer, stage IV Hyperkalemia Condition: Critical JANIA SANCHEZ MD Mar 24, 2017 21:18
[2017-03-24] MEDS: PHENYLephrine 40 MG in DEXTROSE 5% 496 ML IV SCH (21:24)
[2017-03-24] MEDS ORDERED: SOD CHLORIDE 0.9% 2,540 ML IV ONE (21:30)
[2017-03-24] MEDS: SODIUM BICARBONATE (IV ADD) 150 MEQ in DEXTROSE 5% 1,000 ML IV SCH (22:33)
[2017-03-24 23:23] LABS: CALCIUM 12.8 mg/dl (8.4-10.2); CREATININE 1.97 mg/dl (0.61-1.24); MAGNESIUM 3.4 mg/dl (1.7-2.5); POTASSIUM 4.3 mmol/L (3.5-5.1)
[2017-03-24] MEDS ORDERED: NORepinephrine 8MG/250 ML (PMX 250 ML IV SCH (23:30)
--- NOTE | 2017-03-24 23:55 | HP ---
Date/Time of Note Date/Time of Note DATE: 03/24/17 TIME: 23:53 Assessment/Plan VTE Prophylaxis VTE Prophylaxis Intervention: SCD's Lines/Catheters IV Catheter Type (from Nrs): Saline Lock Central line still needed: Yes Reason Cath still needed: other (indicate) (Clinical condition) Assessment/Plan Chief Complaint/Hosp Course This is a 71-year-old male being admitted to the ICU floor for: #1 cardiac arrest: Patient underwent 2 separate ACLS cycles for PEA with YISEL. Patient at the current time is obtunded, he does have his eyes open however he is nonresponsive. The patient does not have any purposeful movements, since he is meeting sepsis criteria he is not a candidate for hypothermia protocol. Patient's EKG did show ST elevation however he was not deemed a candidate for cardiac catheterization secondary to his current medical status. At the current time will trend troponins. Will initiate post arrest protocol. Patient was seen to be hypotensive and was started on levo fed. Will continue pressor support with goal to maintain map greater than 65. Patient had central line put in by the ED physician. Will check stat ABG. Will trend lactate. Will check a 2D echocardiogram. Will consult cardiology. Consult palliative care. Will check an echocardiogram. His previous echocardiogram showed an ejection fraction of 40% in August 2016. #2 Acute hypoxemic respiratory failure: Likely secondary to #1. Patient does have a history of chronic trach secondary to previous head injury. At the current time will maintain patient on the ventilator. Will check serial ABGs and adjust vent settings as indicated. Consult pulmonology. #3 sepsis: Patient's initial lactate was severely elevated at 18. At the current time patient receiving IV fluid resuscitation. An ABG will be ordered. Patient likely will need bicarb drip. At the current time UA is positive for urinary tract infection will treat that right now for urosepsis. However there could be other signs of infection and CAT scan was attempted to be ordered however patient was not considered stable. Currently on broad-spectrum IV antibiotics. Will continue to monitor patient and order further imaging studies to evaluate. #4 Acute on chronic renal failure: Patient presented with a creatinine of 2 with a BUN of 120, potassium was 5.5. At the current time we will maintain patient with IV fluid hydration with normal saline. Will get an ABG as patient did have elevated lactic acidosis. Patient likely will need bicarb drip. Secondary to his unstable nature at this time he is unlikely to be a candidate at this time for dialysis. We will continue to assess the patient for signs of improvement clinically to see if he may be able to tolerate dialysis. Consult nephrology. #5 anemia: Patient's hemoglobin is 7.7 we will continue to trend as patient may need a blood transfusion as well. #6 transaminitis: At the current time will check right upper quadrant ultrasound. Patient was unstable to go into the CAT scan. Possibly could be an underlying shock liver secondary to patient's overall medical condition at this time however we cannot exclude other causes. #7 chronically encephalopathic with chronic ventilator/trache dependent respiratory failure: Continue vent management, consult pulmonology #8 GI bleed: No signs of any active GI bleeding at this time. Will continue to monitor hemoglobin #9 type 2 diabetes: We will check hemoglobin A1c, insulin sliding scale. #10 stage IV pressure ulcers: We will consult wound care. #11 DVT and GI prophylaxis: SCDs, Protonix Further treatment strategy will be implemented as per the clinical course. Greater than 60 minutes of critical care time was spent on the care and management of this patient. This patient is an a very unfortunate state. I do not feel that he has much of a quality of life overall based on his multiple comborbidities and he is debilitated. Will continue to monitor the patient at this time. Will consult palliative care and social work to help and assist in assessing the goals of care for the patient with the family Problems: HPI/ROS Admit Date/Time Admit Date/Time Hx of Present Illness Chief complaint: Cardiac arrest The following was obtained from the ED documentation as well as previous medical records. 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 The patient was found this afternoon to be unresponsive. An ambulance was called at that time. Upon ambulance arrival, the patient was found to be in PEA. CPR was initiated at that time. He received 2 rounds of epinephrine and ROSC was achieved. The patient was congested but easy to bag en route to the hospital. The patient was hypotensive and bradycardic throughout transport. Upon arrival to the emergency department, the patient arrested again. ACLS protocol was initiated immediately. CPR was effective and maintained throughout the code. The patient was given 1 dose of epinephrine and bicarbonate during the code. After approximately 4 minutes, ROSC was achieved. The patient was found to be severely hypoxic with oxygenation in the 50s. Respiratory therapy was called immediately upon patient arrival and help to suction the patient and bagged the patient to an oxygenation between 90 and 100. At that point he was placed on the ventilator An EKG was obtained at this time that was concerning for an acute coronary syndrome with ST depressions in leads I, aVL and V4 through V6. There was also an ST depression in lead II and ST elevations in leads aVR and V1. A STEMI alert was called and the case was discussed with the marine structural designer who felt that the patient's history did not make him a candidate for catheterization at this time. The patient's EKG showed a ventricular rate of 79 bpm at this time with an elevated NV interval and wide QRS. The history is limited secondary to patient's intubated and altered status status post cardiac arrest. Patient's relative Dr. Phil Marquez was spoken to. He was updated on the patient's condition. The relative stated that he would contact the patient's legal guardian to discuss patient's status as well as goals of care. Patient's relative did state that patient has gone through various medical problems and has overcome those. Allergies: NKDA Medications: See MAR ROS Subjective hx not possible: pt non-verbal, pt critical (Status post cardiac arrest) PMH/Family/Social Past Medical History As per HPI, and able to obtain sufficiently secondary to patient's medical condition Past Surgical History As per HPI, unable to obtain sufficiently secondary to patient's medical condition Family History Significant Family History: other (Unable to obtain secondary to patient's obtunded status) Social History Unable to obtain secondary to patient's obtunded status Smoking Status: Unknown if ever smoked Exam/Review of Systems Vital Signs Vitals Vital Signs Date Time Temp Pulse Resp B/P Pulse Ox O2 Delivery O2 Flow Rate FiO2 03/24/17 23:50 93 96/62 03/24/17 23:30 94.6 16 100 Mechanical Ventilator 03/24/17 22:10 70 Exam Exam General: Patient is lying in bed, eyes are open however patient is nonresponsive to verbal stimuli. Obtunded. HEENT: Pupils are fixed bilaterally. Chronic trach connected to ventilator Neck: Supple with full range of motion. Lungs: Coarse breath sounds bilaterally Heart: Normal S1-S2, Regular rhythm and rate. No overt murmur appreciated Abdomen: Soft , nontender, nondistended , bowel sounds are present. No guarding no rebound tenderness , abdominal ventral hernia reducible Extremities: No edema noted Neurologic: Obtunded, eyes are open, as per patient's relative he stated that approximately 2 days ago patient was able to group captain his hand. As per cousin he does have baseline limited mental status Additional Comments PROCEDURE: Chest x-ray CLINICAL INDICATION: Cardiac arrest TECHNIQUE: Chest single view COMPARISON: 10/29/2016 FINDINGS: Tracheostomy tube remains in good position. Heart is normal in size. Bony vessels are normal in caliber. There is new bilateral perihilar and lower lobe infiltrates which may represent atelectasis and/or pneumonia. No pneumothorax is seen. Costophrenic angles are sharp. Bony thorax is unremarkable. IMPRESSION: 1. Tracheostomy tube remains in good position. 2. New perihilar and lower lobe atelectasis/pneumonia. 3. No pneumothorax. 4. Old right clavicle fracture RPTAT: HH .Devon Sears MD, MD Date Time Electronically viewed and signed by .Devon Saers MD, MD on 03/24/2017 19:04 .W/ An EKG with ST depressions in leads I, aVL and V4 through V6. There was also an ST depression in lead II and ST elevations in leads aVR and V1. Labs Result Diagram: 03/24/17 1835 03/24/17 2238 Medications Medications Current Medications Phenylephrine HCl 40 mg/Dextrose 500 ml @ 75 mls/hr TITRATE IV Last administered on 03/24/17t 21:24; Admin Dose 75 MLS/HR; Start 03/24/17 at 21:30 Sodium Bicarbonate 150 meq/Dextrose 1,150 ml @ 75 mls/hr [id number] IV Last administered on 03/24/17 22:33; Admin Dose 75 MLS/HR; Start 03/24/17 at 21:30 Norepinephrine (Levophed) 250 ml @ 3.75 mls/hr ONCE IV Last administered on 23:27; Admin Dose 56.25 MLS/HR; Start 03/24/17 at 23:30; Stop 03/24/17 at 23:59 Acetaminophen (Tylenol Supp) 650 mg Q4H PRN NV PAIN LEVEL 1-3 OR FEVER; Start 03/25/17 at 00:00; Status UNV Pantoprazole (Protonix Iv) 40 mg DAILY@06 IV ; Start 03/25/17 at 06:00; Status UNV Heparin Sodium (Porcine) (Heparin (5000 Units/0.5 ml)) 5,000 unit Q8 SC ; Start 03/25/17 at 06:00; Status UNV ZEENAT [facility]IS Mar 24, 2017 23:55
[2017-03-25] VITALS (31 sets, daily range): BP systolic 43–204; BP diastolic 28–124; PULSE 0–96; RESP 0–75; TEMP 96.9
[2017-03-25] MEDS ORDERED: VANCOMYCIN IV PER PHARMACY XX SCH
[2017-03-25] MEDS ORDERED: ACETAMINOPHEN 650 MG SUPP PR PRN
[2017-03-25] MEDS: PHENYLephrine 40 MG in DEXTROSE 5% 496 ML IV SCH ×2 (00:37→10:21)
[2017-03-25 00:38] LABS: ALBUMIN 2.9 g/dl (3.3-4.9); ALBUMIN/GLOBULIN RATIO 0.7; CALCIUM 12.4 mg/dl (8.4-10.2); CREATININE 1.82 mg/dl (0.61-1.24); POTASSIUM 3.9 mmol/L (3.5-5.1)
[2017-03-25] MEDS ORDERED: NORepinephrine 8MG/250 ML (PMX 250 ML IV SCH (03:00)
[2017-03-25] MEDS: DOPamine-D5W 1.6 MG/ML 250 ML IV SCH ×3 (03:08→09:12)
[2017-03-25] MEDS: EPINEPHrine 4 MG in SOD CHLORIDE 0.9% 246 ML IV SCH ×2 (03:42→09:46)
[2017-03-25] MEDS ORDERED: SOD CHLORIDE 0.9% 1,000 ML IV ONE (04:00)
[2017-03-25] MEDS: SODIUM BICARBONATE (IV ADD) 150 MEQ in DEXTROSE 5% 1,000 ML IV SCH ×2 (04:30→10:22)
[2017-03-25] MEDS: NORepinephrine 8MG/250 ML (PMX 250 ML IV SCH ×3 (04:42→11:06)
[2017-03-25] MEDS ORDERED: SODIUM BICARBONATE (IV ADD) 50 ML ONE (05:13)
[2017-03-25] MEDS ORDERED: NA BICARBONATE 8.4% 50 ML SYG IV ONE (05:30)
[2017-03-25] MEDS ORDERED: HEPARIN 5,000 UNIT/0.5 ML VIAL SC SCH (06:00)
[2017-03-25] MEDS ORDERED: PANTOPRAZOLE 40 MG INJ IV SCH (06:00)
[2017-03-25 06:55] LABS: ALBUMIN 2.9 g/dl (3.3-4.9); ALBUMIN/GLOBULIN RATIO 0.78; CALCIUM 11.4 mg/dl (8.4-10.2); POTASSIUM 4.1 mmol/L (3.5-5.1); TOTAL PROTEIN 6.6 g/dl (6.1-8.1)
[2017-03-25] MEDS ORDERED: DOPamine-D5W 1.6 MG/ML 250 ML ONE (07:00)
[2017-03-25] MEDS ORDERED: NA BICARBONATE 8.4% 50 ML SYG ONE (07:00)
[2017-03-25] MEDS ORDERED: EPINEPHrine 0.1 MG/ML SYG ONE (07:00)
[2017-03-25 07:16] LABS: CK-MB 22.7 ng/ml (0.0-2.4)
[2017-03-25 07:18] LABS: TROPONIN-I 1.76 ng/ml (0.00-0.12)
[2017-03-25 07:55] LABS: CREATININE 1.8 mg/dl (0.61-1.24)
[2017-03-25 08:08] LABS: Allen Test ACCEPTAB; Arterial COHb 0.1 % (0.0-3.0); Arterial Fraction of Oxyhgb 94.1 % (93.0-99.0); Arterial MetHb 0.5 % (0.0-1.5); Arterial Total Hemglobin 8.4 g/dl (12.0-18.0); MODE VENT - AC
--- NOTE | 2017-03-25 08:08 | RADRPT ---
PROCEDURE: US Abdomen (Right upper quadrant) CLINICAL INDICATION: Abdominal pain. TECHNIQUE: Multiple real-time longitudinal and transverse images were acquired of the patient's ri ght upper quadrant utilizing a curved array transducer. COMPARISON: CT, 01/27/2017. FINDINGS: Liver is enlarged. The echogenicity is within normal limits. No focal liver mass. Portal vein demonstrates hepatopetal flow. Gallbladder is normal. There are no gallstones. There is mild nonspecific gallbladder wall thicken ing. There is no intrahepatic biliary dilatation. The extrahepatic biliary system is poorly visual ized. Pancreas is not visualized. Right kidney demonstrates mild to moderate hydronephrosis. No ascites. Proximal aorta and IVC are unremarkable. MEASUREMENTS: Liver: 22.2 cm Common Duct: 0.6 cm Right Kidney: 10.6 cm IMPRESSION: 1. Hepatomegaly. 2. Mild gallbladder wall thickening that is nonspecific in the absence of gallstones. 3. Poor visualization of the extrahepatic biliary system and pancreas. 4. Mild to moderate right-sided hydronephrosis. RPTAT: EE .Juan Jose Mejía MD, MD Date Time Electronically viewed and signed by .Juan Jose Mejía MD, on 03/25/2017 08:12 .C/
[2017-03-25] MEDS ORDERED: CEFEPIME 1GM/50 ML (PMX) 50 ML IVPB SCH (09:00)
[2017-03-25] MEDS ORDERED: PHENYLephrine 20MG IN 250 ML 250 ML ONE (09:02)
[2017-03-25] MEDS ORDERED: NOREPINEPHRINE 32 MG in DEXTROSE 5% 250 ML IV SCH (12:00)
[2017-03-25] MEDS ORDERED: PHENYLephrine 40 MG in DEXTROSE 5% 496 ML IV SCH (12:00)
[2017-03-25] MEDS ORDERED: GLUCAGON 1 MG INJ IM PRN (12:00)
[2017-03-25] MEDS ORDERED: DEXTROSE 50% 50 ML SYRINGE IV PRN ×2 (12:00)
[2017-03-25] MEDS ORDERED: GLUCOSE GEL 15 GRAM TUBE PO PRN ×2 (12:00)
[2017-03-25] MEDS ORDERED: DOPamine-D5W 1.6 MG/ML 250 ML IV SCH (12:00)
[2017-03-25] MEDS ORDERED: GLUCOSE GEL 15 GRAM TUBE BUCCAL PRN (12:00)
[2017-03-25] MEDS ORDERED: PHENYLephrine 160 MG in DEXTROSE 5% 484 ML IV SCH (12:00)
[2017-03-25] MEDS ORDERED: PENDING SANTYL ORDER FOR WOUND CARE XX PRN (12:30)
[2017-03-25] MEDS ORDERED: HEPARIN 1000 UNITS/ML 10 ML INJ IV ONE (13:00)
[2017-03-25] MEDS ORDERED: HEPARIN 25000 UNITS/250 ML 250 ML IV SCH (13:00)
[2017-03-25] MEDS ORDERED: HEPARIN 1000 UNITS/ML 10 ML INJ IV PRN (13:00)
[2017-03-25] MEDS ORDERED: INSULIN ASPART [NOVOLOG] 3 ML PEN SC SCH (13:00)
--- NOTE | 2017-03-25 13:45 | QN ---
Documentation Comment CPR #2: I was called out of the emergency department to room 102 for second a CODE BLUE event. The patient was receiving high-quality CPR and being bagged by respiratory therapy. I immediately took over as the CODE BLUE leader and ran the code. Please see the code sheet for full details. The patient received CPR and 1 mg of epinephrine. The final results of the CODE BLUE was return of spontaneous circulation. HPI: Please note the history and physical exam is limited as the patient is receiving CPR at this time. The patient is in full cardiac arrest. Physical exam: The patient is being bagged by respiratory therapy. There is no movement. GCS is 3. CAROL LONG MD Mar 25, 2017 13:45
--- NOTE | 2017-03-25 13:45 | QN ---
Documentation Comment CPR #1: I was called out of the emergency department to room 102 for a CODE BLUE event. The patient was receiving high-quality CPR and being bagged by respiratory therapy. I immediately took over as the CODE BLUE leader and ran the code. Please see the code sheet for full details. The patient received CPR and 1 mg of epinephrine. The final results of the CODE BLUE was return of spontaneous circulation. HPI: Please note the history and physical exam is limited as the patient is receiving CPR at this time. The patient is in full cardiac arrest. Physical exam: The patient is being bagged by respiratory therapy. There is no movement. GCS is 3. CAROL LONG MD Mar 25, 2017 13:45
--- NOTE | 2017-03-25 13:46 | QN ---
Documentation Comment CPR #3: I was called out of the emergency department to room 102 for third a CODE BLUE event. The patient was receiving high-quality CPR and being bagged by respiratory therapy. I immediately took over as the CODE BLUE leader and ran the code. Please see the code sheet for full details. The patient received CPR and 1 mg of epinephrine 2. The final results of the CODE BLUE was return of spontaneous circulation. HPI: Please note the history and physical exam is limited as the patient is receiving CPR at this time. The patient is in full cardiac arrest. Physical exam: The patient is being bagged by respiratory therapy. There is no movement. GCS is 3. CAROL LONG MD Mar 25, 2017 13:46
--- NOTE | 2017-03-25 13:53 | DES ---
Date/Time of Note Date/Time of Note DATE: 03/25/17 TIME: 13:53 Discharge/ Summary Admission/Discharge Info Admit Date/Time Mar 24, 2017 at 23:46 Discharge Date/Time Final Diagnosis cardiac arrest Preliminary Cause of cardiac arrest Hx of Present Illness Chief complaint: Cardiac arrest The following was obtained from the ED documentation as well as previous medical records. 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 The patient was found this afternoon to be unresponsive. An ambulance was called at that time. Upon ambulance arrival, the patient was found to be in PEA. CPR was initiated at that time. He received 2 rounds of epinephrine and ROSC was achieved. The patient was congested but easy to bag en route to the hospital. The patient was hypotensive and bradycardic throughout transport. Upon arrival to the emergency department, the patient arrested again. ACLS protocol was initiated immediately. CPR was effective and maintained throughout the code. The patient was given 1 dose of epinephrine and bicarbonate during the code. After approximately 4 minutes, ROSC was achieved. The patient was found to be severely hypoxic with oxygenation in the 50s. Respiratory therapy was called immediately upon patient arrival and help to suction the patient and bagged the patient to an oxygenation between 90 and 100. At that point he was placed on the ventilator An EKG was obtained at this time that was concerning for an acute coronary syndrome with ST depressions in leads I, aVL and V4 through V6. There was also an ST depression in lead II and ST elevations in leads aVR and V1. A STEMI alert was called and the case was discussed with the machine bander and cellophaner who felt that the patient's history did not make him a candidate for catheterization at this time. The patient's EKG showed a ventricular rate of 79 bpm at this time with an elevated OR interval and wide QRS. The history is limited secondary to patient's intubated and altered status status post cardiac arrest. Patient's relative Dr. Phil Marquez was spoken to. He was updated on the patient's condition. The relative stated that he would contact the patient's legal guardian to discuss patient's status as well as goals of care. Patient's relative did state that patient has gone through various medical problems and has overcome those. Hospital Course Pt required progressively higher amounts of pressor support, by early afternoon was on more than max dose of 4 vasopressor agents. Between 1p and 2pm pt went into PEA arrest 4 times. During the first 3, ROSC was able to be achieved with 1 dose of epi/1 round of compressions, 1 dose of epi/1 round of compressions, and 2 doses of epi/2 rounds of compressions, respectively. Pt then coded a 4th time. Despite CPR, return of circulation was not achieved. Pt was pronounced at 1349. Process Development Technician was also present during the final code. I spoke with pt's POA, Dr Phil Marquez multiple times between pt's successive cardiac arrests. Phil stated that even though he was the POA, he wanted to speak to his brother prior to changing pt's code status. Phil stated that he attempted to reach his brother multiple times without success. I also left a voicemail for the patient's brother prior to pt's demise. After patient , I attempted 3 times to reach Phil via telephone. It went to voicemail all 3 times and I left a message asking that he call the ER back as soon as possible. Pending Labs/Cultures Laboratory Tests Test 03/24/17 18:35 03/24/17 19:47 03/24/17 19:54 03/24/17 22:38 White Blood Count 9.910^3/ul (4.8-10.8) Red Blood Count 2.5410^6/ul (4.70-6.10) Hemoglobin 7.7g/dl (14.0-18.0) Hematocrit 28.2% (42.0-52.0) Mean Corpuscular Volume 111.0fl (82.0-101.0) Mean Corpuscular Hemoglobin 30.3pg (29.0-33.0) Mean Corpuscular Hemoglobin Concent 27.3g/dl (32.0-37.0) Red Cell Distribution Width 16.9% (11.5-14.5) Platelet Count 37416^3/UL (140-415) Mean Platelet Volume 11.5fl (7.4-10.4) Neutrophils % % (39.0-77.0) Segmented Neutrophils % (Manual) 44% (39-77) Band Neutrophils % (Manual) 2% (0-4) Lymphocytes % % (15.0-51.0) Lymphocytes % (Manual) 37% (15-51) Monocytes % % (0.0-11.0) Monocytes % (Manual) 1% (0-11) Eosinophils % % (0.0-7.0) Eosinophils % (Manual) 6% (0-7) Basophils % % (0.0-2.0) Metamyelocytes % (manual) 3% (0-0) Promyelocytes % (Manual) 3% (0-0) Nucleated Red Blood Cells % 2% (0-0) Neutrophils # 10^3/ul (1.6-7.5) Neutrophils # (Manual) 4.410^3/ul (1.7-7.5) Band Neutrophils # 0.110^3/ul (0.0-0.6) Absolute Lymphocytes (Manual) 3.610^3/ul (0.8-2.9) Lymphocytes # 10^3/ul (0.8-2.9) Monocytes # 10^3/ul (0.3-0.9) Absolute Monocytes (Manual) 0.010^3/ul (0.3-0.9) Eosinophils # 10^3/ul (0.0-0.5) Basophils # 10^3/ul (0.0-0.1) Metamyelocytes # 0.210^3/ul (0.0-0.0) Promyelocytes # 0# (0-0) Nucleated Red Blood Cells # 10^3/ul (0.0-0.0) Smudge Cells % 12% (0-0) Platelet Estimate NORMAL Hypochromasia 1+ (0-0) Anisocytosis 1+ (0-0) Macrocytosis 1+ (0-0) Sodium Level 140mmol/L (135-144) 140mmol/L (135-144) Potassium Level 5.5mmol/L (3.5-5.1) 4.3mmol/L (3.5-5.1) Chloride Level 94mmol/L (97-110) 96mmol/L (97-110) Carbon Dioxide Level 14mmol/L (21-31) 26mmol/L (21-31) Anion Gap 38 (8-16) 22 (8-16) Blood Urea Nitrogen 120mg/dl (7-20) 118mg/dl (7-20) Creatinine 2.03mg/dl (0.61-1.24) 1.97mg/dl (0.61-1.24) Glucose Level 292mg/dl (70-220) 209mg/dl (70-220) Lactic Acid Level 18.9mmol/L (0.5-2.0) Calcium Level 14.4mg/dl (8.4-10.2) 12.8mg/dl (8.4-10.2) Total Bilirubin 0.0mg/dl (0.2-1.3) Direct Bilirubin 0.00mg/dl (0.00-0.20) Indirect Bilirubin 0.0mg/dl (0-1.1) Aspartate Amino Transf (AST/SGOT) 219IU/L (15-46) Alanine Aminotransferase (ALT/SGPT) 183IU/L (13-69) Alkaline Phosphatase 162IU/L (42-121) Troponin I 0.025ng/ml (0.00-0.12) Total Protein 7.8g/dl (6.1-8.1) Albumin 3.7g/dl (3.3-4.9) Globulin 4.10g/dl (1.3-3.2) Albumin/Globulin Ratio 0.90 Blood Gas Specimen Source Blood arterial Arterial Blood Date Drawn 03/24/2017 8:05:11 PM Arterial Blood pH (Temp corrected) 6.954 (7.350-7.450) Arterial Blood pCO2 (Temp correct) 78.1mmhg (35-45) Arterial Blood pO2 (Temp corrected) 209.6mmHG (80-90.0) Arterial Blood HCO3 16.9mmol/L (22.0-26.0) Arterial Blood Base Excess -15.1mmol/L (-3.0-3) Arterial Blood Oxygen Saturation 97.9mmHG (95.0-100.0) Pedro Test N/A Arterial Blood Gas Puncture Site Right Brachial Arterial Blood Carboxyhemoglobin 0.1% (0.0-3.0) Arterial Blood Methemoglobin 1.0% (0.0-1.5) Blood Gas A-a O2 Differential 425.3mmHg (7.0-24.0) Oxyhemoglobin Percent 96.8% (93.0-99.0) Total Hemoglobin 9.8g/dl (12.0-18.0) Blood Gas Temperature 37.0C Blood Gas Respiration Rate 16.0 Blood Gas Actual Respiration Rate 16 Blood Gas Modality VENT - AC FiO2 100.0% Blood Gas Tidal Volume 500.0mL Blood Gas Low PEEP Setting 5.0cmH2O Blood Gas Inspiratory Pressure 30.0 Blood Gas Critical Value Read Back Kristyn SANCHEZ MD Blood Gas Notified Whom MG Blood Gas Notified Time 03/24/2017 8:16:53 PM Urine Color YELLOW (YELLOW) Urine Clarity CLOUDY (CLEAR) Urine pH 8.0 (5.0-9.0) Urine Specific Portal 1.011 (1.003-1.030) Urine Ketones NEGATIVEmg/dL (NEGATIVE) Urine Nitrite NEGATIVEmg/dL (NEGATIVE) Urine Bilirubin NEGATIVEmg/dL (NEGATIVE) Urine Urobilinogen NEGATIVEmg/dL (NEGATIVE) Urine Leukocyte Esterase 3+Audie/ul (NEGATIVE) Urine Microscopic RBC 52/HPF (0-5) Urine Microscopic WBC > 182/HPF (0-5) Urine Bacteria MODERATE/HPF (NONE SEEN) Urine Mucus FEW/HPF (NONE SEEN) Urine Hemoglobin 1+mg/dL (NEGATIVE) Urine Glucose NEGATIVEmg/dL (NEGATIVE) Urine Total Protein 1+mg/dl (NEGATIVE) Magnesium Level 3.4mg/dl (1.7-2.5) Test 03/24/17 23:40 03/25/17 03:19 03/25/17 05:43 03/25/17 11:20 Sodium Level 139mmol/L (135-144) 137mmol/L (135-144) Potassium Level 3.9mmol/L (3.5-5.1) 4.1mmol/L (3.5-5.1) Chloride Level 95mmol/L (97-110) 91mmol/L (97-110) Carbon Dioxide Level 28mmol/L (21-31) 28mmol/L (21-31) Anion Gap 20 (8-16) 22 (8-16) Blood Urea Nitrogen 122mg/dl (7-20) 122mg/dl (7-20) Creatinine 1.82mg/dl (0.61-1.24) 1.80mg/dl (0.61-1.24) Glucose Level 239mg/dl (70-220) 317mg/dl (70-220) Lactic Acid Level 5.6mmol/L (0.5-2.0) 6.4mmol/L (0.5-2.0) Calcium Level 12.4mg/dl (8.4-10.2) 11.4mg/dl (8.4-10.2) Total Bilirubin 0.0mg/dl (0.2-1.3) 0.0mg/dl (0.2-1.3) Direct Bilirubin 0.00mg/dl (0.00-0.20) 0.00mg/dl (0.00-0.20) Indirect Bilirubin 0.0mg/dl (0-1.1) 0.0mg/dl (0-1.1) Aspartate Amino Transf (AST/SGOT) 466IU/L (15-46) 373IU/L (15-46) Alanine Aminotransferase (ALT/SGPT) 320IU/L (13-69) 261IU/L (13-69) Alkaline Phosphatase 208IU/L (42-121) 189IU/L (42-121) Total Protein 7.0g/dl (6.1-8.1) 6.6g/dl (6.1-8.1) Albumin 2.9g/dl (3.3-4.9) 2.9g/dl (3.3-4.9) Globulin 4.10g/dl (1.3-3.2) 3.70g/dl (1.3-3.2) Albumin/Globulin Ratio 0.70 0.78 Blood Gas Specimen Source Blood arterial Arterial Blood Date Drawn 03/25/2017 5:08:40 AM Arterial Blood pH (Temp corrected) 7.318 (7.350-7.450) Arterial Blood pCO2 (Temp correct) 45.9mmhg (35-45) Arterial Blood pO2 (Temp corrected) 80.8mmHG (80-90.0) Arterial Blood HCO3 23.0mmol/L (22.0-26.0) Arterial Blood Base Excess -3.0mmol/L (-3.0-3) Arterial Blood Oxygen Saturation 94.7mmHG (95.0-100.0) Pedro Test ACCEPTAB Arterial Blood Gas Puncture Site Right Radial Arterial Blood Carboxyhemoglobin 0.1% (0.0-3.0) Arterial Blood Methemoglobin 0.5% (0.0-1.5) Blood Gas A-a O2 Differential 369.0mmHg (7.0-24.0) Oxyhemoglobin Percent 94.1% (93.0-99.0) Total Hemoglobin 8.4g/dl (12.0-18.0) Blood Gas Temperature 37.0C Blood Gas Respiration Rate 20.0 Blood Gas Actual Respiration Rate 24 Blood Gas Modality VENT - AC FiO2 70.0% Blood Gas Tidal Volume 500.0mL Blood Gas Low PEEP Setting 5.0cmH2O Blood Gas Inspiratory Pressure 32.0 Blood Gas Notified Whom MG Blood Gas Notified Time 03/25/2017 5:19:21 AM Creatine Kinase 300IU/L (23-200) Creatine Kinase Index 7.6 Creatinine Kinase MB (Mass) 22.70ng/ml (0.0-2.4) Troponin I 1.760ng/ml (0.00-0.12) Bedside Glucose 328mg/dL (70-220) Test 03/25/17 12:37 03/25/17 12:46 03/25/17 13:30 Bedside Glucose 319mg/dL (70-220) 310mg/dL (70-220) Creatine Kinase 200IU/L (23-200) Creatine Kinase Index Pending Creatinine Kinase MB (Mass) Pending Troponin I Pending Microbiology Date/Time Source Procedure Growth Status 03/24/17 19:54 Lopez Catheter Urine Culture - Preliminary Gram Negative Denys Resulted DAVE VIRK MD Mar 25, 2017 13:53 03/24/17 19:54 Lopez Catheter Urine Culture - Preliminary Gram Negative Denys Resulted DAVE VIRK MD Mar 25, 2017 13:53
[2017-03-25 13:59] LABS: CK-MB 19.2 ng/ml (0.0-2.4); TROPONIN-I 2.16 ng/ml (0.00-0.12)
--- NOTE | 2017-03-25 17:40 | RADRPT ---
Vent Rate: 65 bpm RR Interval: 0 msec WI Interval: 0 msec QRS Duration: 166 msec QT Interval: 402 msec QTC Interval: 418 msec P-R-T [place]: 0 - -89 - 82 degrees Atrial fibrillation with premature ventricular or aberrantly conducted complexes Left axis deviation Right bundle branch block Inferior infarct , age undetermined Anterior infarct , age undetermined Abnormal ECG Electronically Signed By: Patricio De La Vega [id number]
[2017-03-25] MEDS ORDERED: VANCOMYCIN 1 GM in NS 250 ML IVPB SCH (21:00)
[2017-03-26] MEDS ORDERED: ACCU-CHEK XX SCH (02:00)
[2017-03-26] MEDS ORDERED: FAMOTIDINE 20 MG INJ IV SCH (09:00)
--- NOTE | 2017-03-26 09:41 | CONS ---
DATE OF ADMISSION: 03/24/2017 DATE OF CONSULTATION: 03/25/2017 REASON FOR CONSULTATION: Ventilator management. HISTORY OF PRESENT ILLNESS: This is a unfortunate 71-year-old gentleman with multiple medical problems including chronic encephalopathy, vent dependent respiratory failure, history of G- tube, chronic kidney disease, systolic dysfunction, transferred from a [facility] facility following cardiopulmonary arrest x2 with a return of circulation. The patient was transferred to the Intensive Care Unit today where his condition has continued to deteriorate, now requiring full vasopressors to maintain his blood pressure, including epinephrine, dopamine, Levophed and neosynephrine. PAST MEDICAL HISTORY: MEDICATION: Per chart. ALLERGIES: NONE KNOWN. SOCIAL HISTORY: No smoking, no alcohol use. No history of drug use. FAMILY HISTORY: Noncontributory. REVIEW OF SYSTEMS: Unable to perform. PHYSICAL EXAMINATION: GENERAL APPEARANCE: Chronically ill-appearing on mechanical ventilation. VITAL SIGNS: Temperature 98, pulse is 50, blood pressure 180/70 at time of examination this morning. HEENT: Tracheostomy intact. CARDIAC: S1, S2. No extra sounds, no murmurs. LUNGS: Diminished air entry bilaterally. ABDOMEN: Soft and nontender with no guarding or rebound. EXTREMITIES: No cyanosis, clubbing or edema. NEUROLOGIC: Unable to assess. LABORATORY: White count 9.9, hemoglobin 7.7, platelets 420,000. Troponin 2.16, ABG pH 6.95 initially, then 7.31. DIAGNOSTIC IMAGING: Chest x-rays shows bilateral infiltrate. IMPRESSION: 1. Cardiopulmonary arrest. 2. Likely healthcare associated pneumonia. 3. Severe anoxic brain injury. 4. Septic shock with multi-organ failure. PLAN: 1. Volume resuscitation. 2. antibiotics 3. Vasopressor support. 4. . Overall prognosis is extremely poor. Dictated By: Alfred Proctor MD /rox/emma /Document#: [id number]
[2017-03-26] MEDS ORDERED: VANCOMYCIN 750 MG in SOD CHLORIDE 0.9% 150 ML IVPB SCH (10:00)
== END 2017-03-25 13:49 | disposition expired | DRG 871 ==
LOC: E/R 18:14 → ICU 23:46
PROVIDERS: ADMIT Family Medicine; ATTEND Family Medicine
PROC: 5A1935Z Respiratory Ventilation, Less than 24 Consecutive Hours (ICD-10-PCS; principal; 2017-03-24)
PROC: 5A12012 Performance of Cardiac Output, Single, Manual (ICD-10-PCS; 2017-03-24)
PROC: 5A12012 Performance of Cardiac Output, Single, Manual (ICD-10-PCS; 2017-03-25)
DX: A41.9 Sepsis, unspecified organism (principal); J96.01 Acute respiratory failure with hypoxia; Z99.11 Dependence on respirator [ventilator] status; N17.9 Acute kidney failure, unspecified; G93.40 Encephalopathy, unspecified; L89.154 Pressure ulcer of sacral region, stage 4; J18.9 Pneumonia, unspecified organism; R00.1 Bradycardia, unspecified; E11.22 Type 2 diabetes mellitus with diabetic chronic kidney disease; Z93.0 Tracheostomy status; E87.5 Hyperkalemia; I12.9 Hypertensive chronic kidney disease with stage 1 through stage 4 chronic kidney disease, or unspecified chronic kidney disease; N18.9 Chronic kidney disease, unspecified; Z93.1 Gastrostomy status; Z79.4 Long term (current) use of insulin
CPT/HCPCS: 36600; 71010; 76705; 80048; 80053; 81001; 82550; 82553; 82803; 82962; 83605; 83735; 84484; 85025; 87040; 87081; 87086; 92950; 93005; 94002; 94003; C9113; J0171; J0692; J1265; J1644; J1815; J2370; J3370; J7030; J7050; J7060; J7070; Q9967